=== PATIENT | female | born 1955 | race Caucasian/White ===

== ENCOUNTER 2016-02-17 05:25 | Day surgery (SDC) | payer BC, OTHER ==
[2016-02-16 10:03] LABS: HEMATOCRIT 40.7 % (36.0-47.0); HEMOGLOBIN 13.3 g/dL (12.0-15.5); HGB HCT DIFFERENCE -0.8; MEAN CORPUSCULAR HEMOGLOBIN 28.2 pg (27.0-33.4); MEAN CORPUSCULAR HGB CONC 32.8 g/dL (32.0-36.0); MEAN CORPUSCULAR VOLUME 86 fl (80-97); RED BLOOD COUNT 4.74 10^6/uL (3.72-5.28); RED CELL DISTRIBUTION WIDTH 14.9 % (11.5-14.0); WHITE BLOOD COUNT 10.9 10^3/uL (4.0-10.5)
[2016-02-16 10:20] LABS: APPEARANCE,URINE CLEAR; BILIRUBIN,URINE NEGATIVE (NEGATIVE); GLUCOSE, URINE NEGATIVE (NEGATIVE); KETONES,URINE NEGATIVE (NEGATIVE); LEUKOCYTE ESTERASE,URINE NEGATIVE (NEGATIVE); NITRITE,URINE NEGATIVE (NEGATIVE); PROTEIN,URINE NEGATIVE (NEGATIVE); URINE SPECIFIC GRAVITY 1.011; UROBILINOGEN,URINE NEGATIVE mg/dL (<2.0)
[2016-02-16 10:31] LABS: ANION GAP 15 (5-19); BLOOD UREA NITROGEN 18 mg/dL (7-20); CARBON DIOXIDE 26 mmol/L (22-30); CHLORIDE 104 mmol/L (98-107); CREATININE RESULT 0.61 mg/dL (0.52-1.25); GLUCOSE 81 mg/dL (75-110); SODIUM 144.6 mmol/L (137-145)
--- NOTE | 2016-02-16 16:59 | EKG REPORT ---
SEVERITY:- NORMAL ECG - SINUS RHYTHM : Confirmed by: Claire Pagan MD 16-Feb-2016 16:58:15
[~2016-02-17 05:25] MED LIST: LACTATED RINGERS 1000 ML IV PRN; LIDOCAINE 0.5% INJ-PF (5 MG/ML) 50 ML SDV SUBCUT PRN
[2016-02-17] MEDS ORDERED: ACETAMINOPHEN 100 ML IV ONE (07:12)
[2016-02-17] MEDS ORDERED: FENTANYL CITRATE INJ/PF 250 MCG/5 ML AMPULE ONE (07:12)
[2016-02-17] MEDS ORDERED: PROPOFOL INJ 200 MG/20 ML VIAL IV ONE ×2 (07:12→09:24)
[2016-02-17] MEDS ORDERED: MIDAZOLAM 2 MG/2 ML INJ ONE (07:12)
[2016-02-17] MEDS ORDERED: DEXMEDETOMIDINE INJ 80 MCG/20 ML VIAL IV ONE (07:13)
[2016-02-17] MEDS ORDERED: CLINDAMYCIN 600 MG/D5W RTU 600 MG/50 ML RTUPB IV ONE (07:39)
[2016-02-17] MEDS ORDERED: KETAMINE HCL INJ 500 MG/10 ML VIAL ONE (07:45)
[2016-02-17] MEDS ORDERED: FENTANYL CITRATE INJ/PF 100 MCG/2 ML AMPUL IV PRN ×3 (08:15)
[2016-02-17] MEDS ORDERED: OXYCODONE-ACETAMINOPHEN 5-325 MG TABLET PO PRN ×2 (08:15)
[2016-02-17] MEDS ORDERED: MEPERIDINE HCL/PF INJ 25 MG/1 ML DISP.SYRIN IV PRN (08:15)
[2016-02-17] MEDS ORDERED: PROMETHAZINE HCL INJ 25 MG/1 ML VIAL IV PRN ×2 (08:15)
[2016-02-17] MEDS ORDERED: DIPHENHYDRAMINE HCL 50 MG/ML VIAL IV PRN (08:15)
[2016-02-17] MEDS ORDERED: MORPHINE SULFATE 10 MG/ML INJ IV PRN (08:15)
--- NOTE | 2016-02-17 10:01 | Operative Report ---
Operative Report DATE OF SURGERY: 02/17/16 PREOPERATIVE DIAGNOSIS: Right second through fifth metatarsal fracture with a dislocation of first and second metatarsal heads OPERATION: Open reduction internal fixation of metatarsals 2, 3, 4 and 5. Closed reduction percutaneous pinning of dislocation of first and second metatarsal heads SURGEON: DARSHAN CHRISTINE ANESTHESIA: Spinal ESTIMATED BLOOD LOSS: minimal PROCEDURE: With the patient supine operative table the lower extremity is prepped and draped in sterile fashion. Limb was elevated for exsanguination tourniquet inflated 280 torr. Initially a lateral incision was made over the majority of the fifth metatarsal and sharp dissection is carried incision down to the fracture site and the fracture is reduced under direct visualization. Is highly comminuted. I 3.5 plate is placed across the fracture site. 2 screws distally and 2 screws proximally. Fracture reduction was near anatomic. Next, an incision is made between the first and second metatarsals and sharp dissection used to expose the underlying second metatarsal fracture. This is reduced under direct visualization and a 2.7 mm plate is applied. Next, an incision was made between third and fourth metatarsals. The fractures are visualized, reduced directly and secured with 2.7 mm plates in both cases. Next, this compression between the first metatarsal head and the remaining metatarsals which have been fixed with internal fixation. A 0.062 K wires placed transversely between first and second metatarsal head with the first webspace reduced. At this point the tourniquet was deflated. The wounds irrigated hemostasis. The reapproximation interrupted nylon. A sterile compressive dressing followed by a Cam Walker applied. Patient returned to PACU in satisfactory condition.
[2016-02-17] MEDS ORDERED: OXYCODONE HCL IR 5 MG TABLET PO PRN (10:17)
[2016-02-17] MEDS ORDERED: ONDANSETRON HCL INJ/PF 4 MG/2 ML SDV IV PRN (10:18)
[2016-02-17 12:56] VITALS: BP 119/79
[2016-02-17] MEDS ORDERED: SUCCINYLCHOLINE CHLORIDE INJ 200 MG/10 ML VIAL ONE (14:25)
[2016-02-17] MEDS ORDERED: PHENYLEPHRINE HCL INJ/PF 10 MG/1 ML SDV ONE (14:25)
[2016-02-17] MEDS ORDERED: LIDOCAINE 2% INJ-PF (20 MG/ML) 10 ML AMPUL ONE (14:25)
[2016-02-17] MEDS ORDERED: GLYCOPYRROLATE INJ 0.4 MG/2 ML VIAL ONE (14:25)
--- NOTE | 2016-02-18 15:31 | Operative Report ---
Operative Report DATE OF SURGERY: 02/17/16 PREOPERATIVE DIAGNOSIS: Left second through fifth metatarsal fracture with a dislocation of first and second metatarsal heads OPERATION: Open reduction internal fixation of metatarsals 2, 3, 4 and 5. Closed reduction percutaneous pinning of dislocation of first and second metatarsal heads SURGEON: DARSHAN CHRISTINE ANESTHESIA: Spinal ESTIMATED BLOOD LOSS: minimal
== END 2016-02-17 12:30 | disposition home or self-care (01) ==
LOC: OROUT 05:25
PROVIDERS: ATTEND Orthopaedic Surgery
PROC: 0QSN04Z Reposition Right Metatarsal with Internal Fixation Device, Open Approach (ICD-10-PCS; 2016-02-17)
PROC: 0QSN34Z Reposition Right Metatarsal with Internal Fixation Device, Percutaneous Approach (ICD-10-PCS; principal; 2016-02-17 07:30)
DX: S92.321A Displaced fracture of second metatarsal bone, right foot, initial encounter for closed fracture (principal); S92.331A Displaced fracture of third metatarsal bone, right foot, initial encounter for closed fracture; S92.341A Displaced fracture of fourth metatarsal bone, right foot, initial encounter for closed fracture; S92.351A Displaced fracture of fifth metatarsal bone, right foot, initial encounter for closed fracture; W10.9XXA Fall (on) (from) unspecified stairs and steps, initial encounter; E11.9 Type 2 diabetes mellitus without complications; J44.9 Chronic obstructive pulmonary disease, unspecified; I10 Essential (primary) hypertension; Z79.51 Long term (current) use of inhaled steroids; Z87.891 Personal history of nicotine dependence; Z79.84 Long term (current) use of oral hypoglycemic drugs; Z88.0 Allergy status to penicillin
CPT/HCPCS: 93005; 36415; 82962; 85027; 80048; 81001; 71020; 73630; 93010; 28476; 28485 ×4; C1769; C1713 ×2; J2250; J3010; J3490 ×3; J2370; J0330; J2704; J0131; 01480

== ENCOUNTER → 2017-04-17 | Outpatient (CLI) | payer BC, OTHER ==
--- NOTE | 2017-04-17 16:49 | WOMENS IMAGING REPORT ---
EXAM DESCRIPTION: BILAT SCREENING MAMMO W/CAD COMPLETED DATE/TIME: 04/17/2017 8:48 am REASON FOR STUDY: SCREENING MAMMO Z12.31 ENCNTR SCREEN MAMMOGRAM FOR MALIGNANT NEOPLASM OF BETTY COMPARISON: None. TECHNIQUE: Standard craniocaudal and mediolateral oblique views of each breast recorded using digita l acquisition. LIMITATIONS: None. FINDINGS: RIGHT BREAST MASSES: Ill-defined nodular mass in the upper-outer breast, located 12 cm from nipple. CALCIFICATIONS: No new or suspicious calcifications. ARCHITECTURAL DISTORTION: None. DEVELOPING DENSITY: None. ASYMMETRY: None noted. OTHER: No other significant findings. LEFT BREAST MASSES: No suspicious masses. CALCIFICATIONS: No new or suspicious calcifications. ARCHITECTURAL DISTORTION: None. DEVELOPING DENSITY: None. ASYMMETRY: None noted. OTHER: No other significant findings. Read with the assistance of CAD. [facility] - R2 Cenova Version 1.3 .[facility] Imaging - R2 Cenova Version 1.3 .[facility] Imaging - R2 Cenova Version 2.4 .[facility] [place] - R2 Cenova Version 2.4 .[facility] - R2 Billet Inspector Version 9.2 IMPRESSION: Ill-defined nodular mass in the upper-outer right breast. No worrisome mammographic fin dings in the left breast. BREAST DENSITY: b. There are scattered areas of fibroglandular density. BIRAD: 0 Incomplete: Needs Additional Imaging Evaluation and/or prior Mammograms for Comparison. RECOMMENDATION: RECOMMENDED FOLLOW-UP: Recommend additional evaluation with breast tomosynthesis (pr eferred) or compression views of the right breast and ultrasound of the right breast. Recommend rout ine screening mammography of the left breast. The patient will be contacted for additional imaging. COMMENT: The patient has been notified of the results by letter per SA requirements. Additional no tification policies are in place for contacting patient with suspicious or incomplete findings. Quality ID #225: The [employer] recommends an annual screening mammogram for women aged 40 years or over. This facility utilizes a reminder system to ensure that all patients receive reminder letters, and/or direct phone calls for appointments. This includes reminders for routine scr eening mammograms, diagnostic mammograms, or other Breast Imaging Interventions when appropriate. Th is patient will be placed in the appropriate reminder system. The [employer] (ACR) has developed recommendations for screening MRI of the breast s in certain patient populations, to be used in conjunction with mammography. Breast MRI surveillanc e may be appropriate for women with more than 20% lifetime risk of developing breast cancer as deter mined by genetic testing, significant family history of the disease, or history of mantle radiation f or Hodgkins Disease. ACR Practice Guidelines 2008. TECHNICAL DOCUMENTATION: FINDING NUMBER: (1) ASSESSMENT: (1) JOB ID: [id number] [employer]- All Rights Reserved Reading location - IP/workstation name: [facility]
== END ==
LOC: WI 08:27
PROVIDERS: ATTEND Family Medicine
DX: Z12.31 Encounter for screening mammogram for malignant neoplasm of breast (principal)
CPT/HCPCS: 77067

== ENCOUNTER → 2017-05-03 | Outpatient (CLI) | payer BC, OTHER ==
--- NOTE | 2017-05-03 16:08 | WOMENS IMAGING REPORT ---
EXAM DESCRIPTION: RIGHT DIAGNOSTIC MAMMO W/CAD; U/S BREAST UNILAT LIMITED COMPLETED DATE/TIME: 05/03/2017 10:28 am; 05/03/2017 11:21 am REASON FOR STUDY: UNSPECIFIED LUMP; N63.11; RT BREAST; N63.11 N63.11 UNSPECIFIED LUMP IN THE RIGHT BREAST, UPPER OUTER SUE COMPARISON: 04/17/2017 TECHNIQUE: Compression magnification craniocaudal and 90 mediolateral images of the breast recorde d with digital acquisition. Additional right breast 90 mediolateral view and CC view. Additional non magnified compression views of the upper outer quadrant in the CC and MLO orientations Right breast ultrasound LIMITATIONS: None. FINDINGS: BREAST: Right MASSES: In the upper outer quadrant, a faintly radiodense nodule is present 7 mm in size with central hilar fat likely a benign intramammary lymph node. This correlates with ultrasound today. CALCIFICATIONS: No new or suspicious calcifications. ARCHITECTURAL DISTORTION: None. DEVELOPING DENSITY: None. ASYMMETRY: None noted. OTHER: No other significant findings. Read with the assistance of CAD. .[facility] - R2 Cenova Version 1.3 .[facility] Imaging - R2 Cenova Version 1.3 .[facility] Imaging - R2 Cenova Version 2.4 .[facility] [place] - R2 Cenova Version 2.4 .[facility] - R2 Line Clearance Foreman Version 9.2 Right breast ultrasound: In the right breast 10 o'clock position, a 7 x 4 mm intramammary lymph node is present. Tiny 2 to 3 mm parenchymal cysts are also evident. IMPRESSION: No mammographic or sonographic evidence for malignancy right breast. BREAST DENSITY: b. There are scattered areas of fibroglandular density. BIRAD: 2 Benign findings. RECOMMENDATION: RECOMMENDED FOLLOW UP: Please continue yearly bilateral screening mammography SPECIFIC INTERVENTION/IMAGING/CONSULTATION RECOMMENDED:No additional intervention/ imaging/consultati on needed at this time. COMMUNICATION:Patient notified by letter COMMENT: The patient has been notified of the results by letter per MQSA requirements. Additional no tification policies are in place for contacting patient with suspicious or incomplete findings. Quality ID #[id number]: The [employer] recommends an annual screening mammogram for women aged 40 years or over. This facility utilizes a reminder system to ensure that all patients receive reminder letters, and/or direct phone calls for appointments. This includes reminders for routine scr eening mammograms, diagnostic mammograms, or other Breast Imaging Interventions when appropriate. Th is patient will be placed in the appropriate reminder system. The [employer] (ACR) has developed recommendations for screening MRI of the breast s in certain patient populations, to be used in conjunction with mammography. Breast MRI surveillanc e may be appropriate for women with more than 20% lifetime risk of developing breast cancer as deter mined by genetic testing, significant family history of the disease, or history of mantle radiation f or Hodgkins Disease. ACR Practice Guidelines 2008. TECHNICAL DOCUMENTATION: FINDING NUMBER: (1) ASSESSMENT: (1) JOB ID: [id number] [employer]- All Rights Reserved Reading location - IP/workstation name: [email or web address]
--- NOTE | 2017-05-03 16:08 | WOMENS IMAGING REPORT ---
EXAM DESCRIPTION: RIGHT DIAGNOSTIC MAMMO W/CAD; U/S BREAST UNILAT LIMITED COMPLETED DATE/TIME: 05/03/2017 10:28 am; 05/03/2017 11:21 am REASON FOR STUDY: UNSPECIFIED LUMP; N63.11; RT BREAST; N63.11 N63.11 UNSPECIFIED LUMP IN THE RIGHT BREAST, UPPER OUTER SUE COMPARISON: 04/17/2017 TECHNIQUE: Compression magnification craniocaudal and 90 mediolateral images of the breast recorde d with digital acquisition. Additional right breast 90 mediolateral view and CC view. Additional non magnified compression views of the upper outer quadrant in the CC and MLO orientations Right breast ultrasound LIMITATIONS: None. FINDINGS: BREAST: Right MASSES: In the upper outer quadrant, a faintly radiodense nodule is present 7 mm in size with central hilar fat likely a benign intramammary lymph node. This correlates with ultrasound today. CALCIFICATIONS: No new or suspicious calcifications. ARCHITECTURAL DISTORTION: None. DEVELOPING DENSITY: None. ASYMMETRY: None noted. OTHER: No other significant findings. Read with the assistance of CAD. .[facility] - R2 Cenova Version 1.3 .[facility] Imaging - R2 Cenova Version 1.3 .[facility] Imaging - R2 Cenova Version 2.4 .[facility] [place] R2 Cenova Version 2.4 .[facility] - R2 Cigar Making Machine Operator Version 9.2 Right breast ultrasound: In the right breast 10 o'clock position, a 7 x 4 mm intramammary lymph node is present. Tiny 2 to 3 mm parenchymal cysts are also evident. IMPRESSION: No mammographic or sonographic evidence for malignancy right breast. BREAST DENSITY: b. There are scattered areas of fibroglandular density. BIRAD: 2 Benign findings. RECOMMENDATION: RECOMMENDED FOLLOW UP: Please continue yearly bilateral screening mammography SPECIFIC INTERVENTION/IMAGING/CONSULTATION RECOMMENDED:No additional intervention/ imaging/consultati on needed at this time. COMMUNICATION:Patient notified by letter COMMENT: The patient has been notified of the results by letter per MQSA requirements. Additional no tification policies are in place for contacting patient with suspicious or incomplete findings. Quality ID #225: The [employer] recommends an annual screening mammogram for women aged 40 years or over. This facility utilizes a reminder system to ensure that all patients receive reminder letters, and/or direct phone calls for appointments. This includes reminders for routine scr eening mammograms, diagnostic mammograms, or other Breast Imaging Interventions when appropriate. Th is patient will be placed in the appropriate reminder system. The [employer] (ACR) has developed recommendations for screening MRI of the breast s in certain patient populations, to be used in conjunction with mammography. Breast MRI surveillanc e may be appropriate for women with more than 20% lifetime risk of developing breast cancer as deter mined by genetic testing, significant family history of the disease, or history of mantle radiation f or Hodgkins Disease. ACR Practice Guidelines 2008. TECHNICAL DOCUMENTATION: FINDING NUMBER: (1) ASSESSMENT: (1) JOB ID: [id number] [employer]- All Rights Reserved Reading location - IP/workstation name: [email or web address]
== END ==
LOC: WI 09:47
PROVIDERS: ATTEND Family Medicine
DX: N63.11 Unspecified lump in the right breast, upper outer quadrant (principal)
CPT/HCPCS: 76642

== ENCOUNTER 2018-01-29 14:27 | Emergency (ER) | payer BC, OTHER ==
[2018-01-29] MEDS ORDERED: LIDOCAINE 2% VISCOUS SOLN 20 ML UDCUP PO ONE (15:04)
[2018-01-29] MEDS ORDERED: MAG HYDROX/AL HYDROX/SIMETH SUSP 30 ML UDCUP PO ONE (15:04)
[2018-01-29] MEDS ORDERED: METOCLOPRAMIDE HCL ORAL SOLN 10 MG/10 ML UDCUP PO ONE (15:04)
--- NOTE | 2018-01-29 15:05 | ER Document Report ---
ED Medical Screen (RME) - General Chief Complaint: Chest Pain Stated Complaint: CHEST PAIN Time Seen by Provider: 01/29/18 14:57 TRAVEL OUTSIDE OF THE [place] IN LAST 30 DAYS: No - Related Data Allergies/Adverse Reactions: Penicillins Adverse Reaction (Severe, Verified 01/29/18 14:27) WHEEZE Past Medical History - Social History Chew tobacco use (# tins/day): No Frequency of alcohol use: None Drug Abuse: None - Past Medical History Cardiac Medical History: Reports: Hx Hypertension - on meds Denies: Hx Coronary Artery Disease, Hx Heart Attack Pulmonary Medical History: Reports: Hx Asthma, Hx Bronchitis - hx of , Hx COPD - inhaler,nebulizer, Hx Pneumonia - 08/21 Neurological Medical History: Reports: Hx Seizures - as child-no meds x 1. Denies: Hx Cerebrovascular Accident Endocrine Medical History: Reports: Hx Diabetes Mellitus Type 2 - borderline Renal/ Medical History: Denies: Hx Peritoneal Dialysis Musculoskeltal Medical History: Denies Hx Arthritis Past Surgical History: Reports: Hx Orthopedic Surgery - left foot/ titanium plates placed, Hx Tonsillectomy. Denies: Hx Hysterectomy - Immunizations Hx Diphtheria, Pertussis, Tetanus Vaccination: No Physical Exam - Vital signs Vitals: Temp Pulse Resp BP Pulse Ox 99.0 F 88 18 147/95 H 96 01/29/18 14:54 01/29/18 14:54 01/29/18 14:54 01/29/18 14:54 01/29/18 14:54 Course - Re-evaluation Re-evalutation: 01/29/18 15:04 63-year-old female with a history of asthma as well as hypertension and prediabetes who presents for intermittent left-sided chest pain. We will plan for cardiac monitoring EKG troponin. Will administer GI cocktail she does say that this could potentially represent reflux though it did not respond well to Prilosec at home. I will plan for this patient undergo further investigation evaluation by secondary provider, the the appropriate diagnostics, disposition and workup will be deferred to that provider. I have performed a rapid screening examination and they will require further evaluation. - Vital Signs Vital signs: Temp Pulse Resp BP Pulse Ox 99.0 F 88 18 147/95 H 96 01/29/18 14:54 01/29/18 14:54 01/29/18 14:54 01/29/18 14:54 01/29/18 14:54 Doctor's Discharge - Discharge Referrals: JASWANT EDWARDS MD [Primary Care Provider] - Follow up as needed
--- NOTE | 2018-01-29 15:54 | RADIOLOGY REPORT (SQ) ---
EXAM DESCRIPTION: CHEST SINGLE VIEW COMPLETED DATE/TIME: 01/29/2018 3:40 pm REASON FOR STUDY: Chest Pain COMPARISON: 02/16/2016 EXAM PARAMETERS: NUMBER OF VIEWS: One view. TECHNIQUE: Single frontal radiographic view of the chest acquired. RADIATION DOSE: NA LIMITATIONS: None. FINDINGS: LUNGS AND PLEURA: No opacities, masses or pneumothorax. No pleural effusion. MEDIASTINUM AND HILAR STRUCTURES: No masses. Contour normal. HEART AND VASCULAR STRUCTURES: Heart normal in size. Normal vasculature. BONES: No acute findings. HARDWARE: None in the chest. OTHER: No other significant finding. IMPRESSION: NO ACUTE RADIOGRAPHIC FINDING IN THE CHEST. TECHNICAL DOCUMENTATION: JOB ID: [id number] [employer]- All Rights Reserved Reading location - IP/workstation name: [email or web address]
[2018-01-29 16:05] LABS: ABSOLUTE BASOPHILS # (AUTO) 0.1 10^3/uL (0.0-0.2); ABSOLUTE EOSINOPHILS # (AUTO) 0.2 10^3/uL (0.0-0.6); ABSOLUTE LYMPHOCYTES (AUTO) 2.2 10^3/uL (0.5-4.7); ABSOLUTE MONOCYTES (AUTO) 0.5 10^3/uL (0.1-1.4); ABSOLUTE NEUT (AUTO) 10.7 10^3/uL (1.7-8.2); BASOPHILS % (AUTO) 0.7 % (0-2); EOSINOPHILS % (AUTO) 1.4 % (0-6); HEMATOCRIT 41.1 % (36.0-47.0); HEMOGLOBIN 13.7 g/dL (12.0-15.5); MEAN CORPUSCULAR HEMOGLOBIN 28.4 pg (27.0-33.4); MEAN CORPUSCULAR HGB CONC 33.3 g/dL (32.0-36.0); MEAN CORPUSCULAR VOLUME 85 fl (80-97); PLATELET COUNT 346 10^3/uL (150-450); RED BLOOD COUNT 4.81 10^6/uL (3.72-5.28); RED CELL DISTRIBUTION WIDTH 13.8 % (11.5-14.0); SEGMENTED NEUTROPHILS % (AUTO) 77.9 % (42-78); TOTAL CELLS COUNTED % (AUTO) 100 %; WHITE BLOOD COUNT 13.7 10^3/uL (4.0-10.5)
[2018-01-29 16:11] LABS: INTERNATIONAL RATION (INR) 0.94
[2018-01-29 16:20] LABS: ALANINE AMINOTRANSFERASE 35 U/L (9-52); ALBUMIN 4.6 g/dL (3.5-5.0); ALKALINE PHOSPHATASE 70 U/L (38-126); ANION GAP 9 (5-19); ASPARTATE AMINO TRANSFERASE 28 U/L (14-36); BILIRUBIN,DIRECT 0.2 mg/dL (0.0-0.4); BILIRUBIN,TOTAL 0.4 mg/dL (0.2-1.3); BLOOD UREA NITROGEN 18 mg/dL (7-20); CALCIUM 10.4 mg/dL (8.4-10.2); CARBON DIOXIDE 25 mmol/L (22-30); CHLORIDE 106 mmol/L (98-107); CREATINE KINASE 79 U/L (30-135); GLUCOSE 111 mg/dL (75-110); TOTAL PROTEIN 7.4 g/dL (6.3-8.2)
[2018-01-29 16:32] LABS: CREATINE KINASE MB 1.01 ng/mL (<4.55); TROPONIN I < 0.012 ng/mL
--- NOTE | 2018-01-29 17:45 | EKG REPORT ---
SEVERITY:- NORMAL ECG - SINUS RHYTHM : Confirmed by: Madison Abbasi 29-Jan-2018 17:44:32
--- NOTE | 2018-01-29 19:14 | ER Document Report ---
ED General - General Chief Complaint: Chest Pain Stated Complaint: CHEST PAIN Time Seen by Provider: 01/29/18 14:57 TRAVEL OUTSIDE OF THE [place] IN LAST 30 DAYS: No - HPI Patient complains to provider of: Epigastric substernal chest pain Notes: Is coming in for epigastric mid substernal chest pain intermittent feeling like a spasm ongoing since day prior to arrival. Patient states yesterday she did take Prilosec with minimal relief pain was improved today however continued the refore came to the ER for further evaluation. Patient does have history of hypertension prediabetic. Patient's states she also has been taking anti- inflammatory medications due to a right shoulder bursitis also recently had a dental infection and was also on clindamycin. Patient otherwise denies any trauma recent travel denies any shortness of breath nausea vomiting fevers or chills. Patient resting comfortably upon my evaluation patient has received a GI cocktail currently chest pain-free - Related Data Allergies/Adverse Reactions: Penicillins Adverse Reaction (Severe, Verified 01/29/18 14:27) WHEEZE Past Medical History - Social History Smoking Status: Former Smoker Chew tobacco use (# tins/day): No Frequency of alcohol use: None Drug Abuse: None Family History: Reviewed & Not Pertinent Patient has suicidal ideation: No Patient has homicidal ideation: No - Past Medical History Cardiac Medical History: Reports: Hx Hypertension - on meds Denies: Hx Coronary Artery Disease, Hx Heart Attack Pulmonary Medical History: Reports: Hx Asthma, Hx Bronchitis - hx of , Hx COPD - inhaler,nebulizer, Hx Pneumonia - 08/21 Neurological Medical History: Reports: Hx Seizures - as child-no meds x 1. Denies: Hx Cerebrovascular Accident Endocrine Medical History: Reports: Hx Diabetes Mellitus Type 2 - borderline Renal/ Medical History: Denies: Hx Peritoneal Dialysis Musculoskeletal Medical History: Denies Hx Arthritis Past Surgical History: Reports: Hx Orthopedic Surgery - left foot/ titanium plates placed, Hx Tonsillectomy. Denies: Hx Hysterectomy - Immunizations Hx Diphtheria, Pertussis, Tetanus Vaccination: No Hx Pneumococcal Vaccination: 11/16/10 Review of Systems - Review of Systems Constitutional: No symptoms reported EENT: No symptoms reported Cardiovascular: Chest pain Respiratory: No symptoms reported Gastrointestinal: No symptoms reported Genitourinary: No symptoms reported Female Genitourinary: No symptoms reported Musculoskeletal: No symptoms reported Skin: No symptoms reported Hematologic/Lymphatic: No symptoms reported Neurological/Psychological: No symptoms reported -: Yes All other systems reviewed and negative Physical Exam - Vital signs Vitals: Temp Pulse Resp BP Pulse Ox 99.0 F 88 18 147/95 H 96 01/29/18 14:54 01/29/18 14:54 01/29/18 14:54 01/29/18 14:54 01/29/18 14:54 Interpretation: Normal - General General appearance: Appears well, Alert - HEENT Head: Normocephalic, Atraumatic Eyes: Normal Pupils: PERRL - Respiratory Respiratory status: No respiratory distress Chest status: Nontender Breath sounds: Normal Chest palpation: Normal - Cardiovascular Rhythm: Regular Heart sounds: Normal auscultation Murmur: No - Abdominal Inspection: Normal Distension: No distension Bowel sounds: Normal Tenderness: Nontender Organomegaly: No organomegaly - Back Back: Normal, Nontender - Extremities General upper extremity: Normal inspection, Nontender, Normal color, Normal ROM, Normal temperature General lower extremity: Normal inspection, Nontender, Normal color, Normal ROM, Normal temperature, Normal weight bearing. No: Thelma's sign - Neurological Neuro grossly intact: Yes Cognition: Normal Orientation: AAOx4 [place] Coma Scale Eye Opening: Spontaneous Brittany Coma Scale Verbal: Oriented [place] Coma Scale Motor: Obeys Commands Brittany Coma Scale Total: 15 Speech: Normal Motor strength normal: LUE, RUE, LLE, RLE Sensory: Normal - Psychological Associated symptoms: Normal affect, Normal mood - Skin Skin Temperature: Warm Skin Moisture: Dry Skin Color: Normal Course - Re-evaluation Re-evalutation: 01/29/18 19:41 The patient has atypical chest pain as the patient's chest pain is not suggestive of pulmonary embolus, cardiac ischemia, aortic dissection, or other serious etiology. Given the extremely low risk of these diagnoses further te sting and evaluation for these possibilities does not appear to be indicated at this time. The patient has been instructed to return if the symptoms worsen or change in any way. With resolution the patient's symptoms with a GI cocktail also improvement prior to arrival process more likely underlying gastritis or GI cause of her pain. This is also further reinforced with her recent history use of NSAIDs and antibiotics. Recommended the patient continue her omeprazole or Prilosec for another 14 days follow-up with her primary care physician return to ER symptoms worsen patient states understanding agrees with this plan. - Vital Signs Vital signs: Temp Pulse Resp BP Pulse Ox 99.0 F 88 19 128/81 H 95 01/29/18 14:54 01/29/18 14:54 01/29/18 19:01 01/29/18 19:01 01/29/18 19:01 - Laboratory Result Diagrams: 01/29/18 15:56 01/29/18 15:56 Laboratory results interpreted by me: 01/29/18 01/29/18 15:56 15:56 WBC 13.7 H Absolute Neutrophils 10.7 H Glucose 111 H Calcium 10.4 H Discharge - Discharge Clinical Impression: Chest pain in adult Condition: Good Disposition: HOME, SELF-CARE Instructions: Chest Pain of Unclear Cause ([facility]), Prilosec (Acid Pump Inhibitor) ([facility]), Reflux Disease (GERD) ([facility]) Additional Instructions: Your evaluation today shows a normal EKG normal chest x-ray and a normal cardiac enzymes, troponin. With her symptoms improving with Prilosec and GI cocktail given to you here in the ER do believe you have more likely underlying GI cause of your chest pain possible gastritis. I would recommend continuing the Prilosec for the next 2 weeks and following up with your primary care physician. He may continue on that medication however he may refer you to a GI specialist. Also avoid foods that are fried greasy or fatty carbonated drinks in excess. If the characteristic of your pain or any other worrisome conditions arise please return to ER immediately. Referrals: JASWANT EDWARDS MD [Primary Care Provider] - Follow up as needed
[2018-01-29 19:22] VITALS: BP 128/81
== END 2018-01-29 19:40 | disposition home or self-care (01) ==
LOC: ER 14:27
DX: R07.9 Chest pain, unspecified (principal); R10.13 Epigastric pain; I10 Essential (primary) hypertension; E11.9 Type 2 diabetes mellitus without complications; Z88.0 Allergy status to penicillin
CPT/HCPCS: 93005; 99285; 36415; 82553; 82550; 85025; 85610; 80053; 84484; 71045; 93010; J3490

== ENCOUNTER 2018-02-03 14:37 | Emergency (ER) | payer BC, OTHER ==
[2018-02-03] MEDS ORDERED: OXYCODONE-ACETAMINOPHEN 5-325 MG TABLET PO ONE (16:06)
[2018-02-03] MEDS ORDERED: ONDANSETRON 4 MG TAB.RAPDIS PO ONE (16:06)
[2018-02-03 16:56] LABS: ABSOLUTE BASOPHILS # (AUTO) 0.2 10^3/uL (0.0-0.2); ABSOLUTE EOSINOPHILS # (AUTO) 0.3 10^3/uL (0.0-0.6); ABSOLUTE LYMPHOCYTES (AUTO) 2.5 10^3/uL (0.5-4.7); ABSOLUTE MONOCYTES (AUTO) 0.7 10^3/uL (0.1-1.4); ABSOLUTE NEUT (AUTO) 9.4 10^3/uL (1.7-8.2); BASOPHILS % (AUTO) 1.2 % (0-2); EOSINOPHILS % (AUTO) 2.4 % (0-6); HEMATOCRIT 41.5 % (36.0-47.0); HEMOGLOBIN 13.9 g/dL (12.0-15.5); LYMPHOCYTES % (AUTO) 18.9 % (13-45); MEAN CORPUSCULAR HEMOGLOBIN 28.9 pg (27.0-33.4); MEAN CORPUSCULAR HGB CONC 33.6 g/dL (32.0-36.0); MEAN CORPUSCULAR VOLUME 86 fl (80-97); MONOCYTES % (AUTO) 5.1 % (3-13); PLATELET COUNT 346 10^3/uL (150-450); RED BLOOD COUNT 4.83 10^6/uL (3.72-5.28); RED CELL DISTRIBUTION WIDTH 13.7 % (11.5-14.0); SEGMENTED NEUTROPHILS % (AUTO) 72.4 % (42-78); TOTAL CELLS COUNTED % (AUTO) 100 %
[2018-02-03 17:07] LABS: APPEARANCE,URINE CLEAR; BILIRUBIN,URINE NEGATIVE (NEGATIVE); COLOR,URINE YELLOW; GLUCOSE, URINE NEGATIVE (NEGATIVE); KETONES,URINE NEGATIVE (NEGATIVE); LEUKOCYTE ESTERASE,URINE NEGATIVE (NEGATIVE); NITRITE,URINE NEGATIVE (NEGATIVE); PROTEIN,URINE NEGATIVE (NEGATIVE); URINE SPECIFIC GRAVITY 1.012; UROBILINOGEN,URINE NEGATIVE mg/dL (<2.0)
[2018-02-03 17:15] LABS: ALANINE AMINOTRANSFERASE 46 U/L (9-52); ALBUMIN 4.3 g/dL (3.5-5.0); ALKALINE PHOSPHATASE 82 U/L (38-126); ANION GAP 9 (5-19); ASPARTATE AMINO TRANSFERASE 42 U/L (14-36); BILIRUBIN,DIRECT 0.2 mg/dL (0.0-0.4); BILIRUBIN,TOTAL 0.4 mg/dL (0.2-1.3); BLOOD UREA NITROGEN 13 mg/dL (7-20); CARBON DIOXIDE 26 mmol/L (22-30); CHLORIDE 106 mmol/L (98-107); GLUCOSE 89 mg/dL (75-110); LIPASE 124.9 U/L (23-300); SODIUM 141.2 mmol/L (137-145); TOTAL PROTEIN 7.2 g/dL (6.3-8.2)
--- NOTE | 2018-02-03 17:47 | ER Document Report ---
ED General - General Chief Complaint: Abdominal Pain >50 Stated Complaint: FLANK PAIN Time Seen by Provider: 02/03/18 16:02 Mode of Arrival: Ambulatory Information source: Patient, [facility] Records Notes: 63-year-old female with hypertension, COPD, prediabetes, gastritis, asthma presents for the second time this week with right upper quadrant abdominal pain. Patient states pain started 6 days prior to arrival. She was seen 5 days ago and diagnosed with gastritis. She has been taking Prilosec with minimal relief. Patient states that her pain was initially epigastric but now has moved to the right upper quadrant. She states pain is worse with food. She describes it as an intermittent burning pain. She denies associated nausea, vomiting, diarrhea, chest pain, shortness of breath, diaphoresis. She does state that her family does have a history of gallbladder disease. TRAVEL OUTSIDE OF THE [place] IN LAST 30 DAYS: No - HPI Onset: Last week Onset/Duration: Gradual, Persistent, Gone - Patient is currently pain-free after receiving Zofran and Percocet. Quality of pain: Burning Severity: Mild Associated symptoms: denies: Chest pain, Fever, Nausea, Vomiting, Shortness of breath, Sweating Exacerbated by: Food Relieved by: Denies Similar symptoms previously: Yes Recently seen / treated by doctor: Yes - Related Data Allergies/Adverse Reactions: Penicillins Adverse Reaction (Severe, Verified 02/03/18 14:56) WHEEZE Past Medical History - General Information source: Patient - Social History Smoking Status: Former Smoker Frequency of alcohol use: None Drug Abuse: None Lives with: Spouse/Significant other Family History: Reviewed & Not Pertinent Patient has suicidal ideation: No Patient has homicidal ideation: No - Past Medical History Cardiac Medical History: Reports: Hx Hypertension - on meds Denies: Hx Coronary Artery Disease, Hx Heart Attack Pulmonary Medical History: Reports: Hx Asthma, Hx Bronchitis - hx of , Hx COPD - inhaler,nebulizer, Hx Pneumonia - 08/21 Neurological Medical History: Reports: Hx Seizures - as child-no meds x 1. Denies: Hx Cerebrovascular Accident Endocrine Medical History: Reports: Hx Diabetes Mellitus Type 2 - borderline Renal/ Medical History: Denies: Hx Peritoneal Dialysis Musculoskeletal Medical History: Denies Hx Arthritis Past Surgical History: Reports: Hx Orthopedic Surgery - left foot/ titanium plates placed, Hx Tonsillectomy. Denies: Hx Hysterectomy - Immunizations Hx Diphtheria, Pertussis, Tetanus Vaccination: No Hx Pneumococcal Vaccination: 11/16/10 Review of Systems - Review of Systems Notes: REVIEW OF SYSTEMS: CONSTITUTIONAL : Denies fever, chills, or sweats. Denies recent illness. Denies weight loss, recent hospitalizations. EENT: Denies visual changes, eye pain. Denies sore throat, oral lesions, difficulty swallowing. CARDIOVASCULAR: Denies chest pain. Denies palpitations. Denies lower extremity edema. RESPIRATORY: Denies cough. Denies shortness of breath, wheezing. GASTROINTESTINAL: Denies distention. Denies nausea, vomiting, or diarrhea. Denies blood in vomitus, stools, or per rectum. Denies black, tarry stools. Denies constipation. GENITOURINARY: Denies difficulty urinating, painful urination, frequency, blood in urine, or vaginal discharge. MUSCULOSKELETAL: Denies back or neck pain or stiffness. Denies joint pain or swelling. SKIN: Denies rash, lesions or sores. HEMATOLOGIC : Denies easy bruising or bleeding. LYMPHATIC: Denies swollen glands. NEUROLOGICAL: Denies confusion or altered mental status. Denies loss of consciousness. Denies dizziness or lightheadedness. Denies headache. Denies weakness or paralysis. Denies problems difficulty with ambulation, slurred speech. Denies sensory loss, numbness, or tingling. Denies seizures. PSYCHIATRIC: Denies anxiety or stress. Denies depression, suicidal ideation, or homicidal ideation. Denies visual or auditory hallucinations. Physical Exam - Vital signs Vitals: Temp Pulse Resp BP Pulse Ox 98.9 F 94 18 148/89 H 97 02/03/18 15:12 02/03/18 15:12 02/03/18 15:12 02/03/18 15:12 02/03/18 15:12 Interpretation: Hypertensive - Notes Notes: PHYSICAL EXAMINATION: GENERAL: Well-appearing, well-nourished and in no acute distress. HEAD: Atraumatic, normocephalic. EYES: Pupils equal round and reactive to light, extraocular movements intact, conjunctiva are normal. ENT: Nares patent, oropharynx clear without exudates. Moist mucous membranes. NECK: Normal range of motion, supple without lymphadenopathy LUNGS: Breath sounds clear to auscultation bilaterally and equal. No wheezes rales or rhonchi. HEART: Regular rate and rhythm without murmurs ABDOMEN: Soft, nontender, nondistended abdomen. No guarding, no rebound. No masses appreciated. Female : deferred Musculoskeletal: Normal range of motion, no pitting or edema. No cyanosis. NEUROLOGICAL: Cranial nerves grossly intact. Normal speech, normal gait. Normal sensory, motor exams PSYCH: Normal mood, normal affect. SKIN: Warm, Dry, normal turgor, no rashes or lesions noted. Course - Re-evaluation Re-evalutation: 02/03/18 23:10 Laboratory 02/03/18 02/03/18 02/03/18 16:43 16:43 16:43 WBC 13.0 H RBC 4.83 Hgb 13.9 Hct 41.5 MCV 86 MCH 28.9 MCHC 33.6 RDW 13.7 Plt Count 346 Seg Neutrophils % 72.4 Lymphocytes % 18.9 Monocytes % 5.1 Eosinophils % 2.4 Basophils % 1.2 Absolute Neutrophils 9.4 H Absolute Lymphocytes 2.5 Absolute Monocytes 0.7 Absolute Eosinophils 0.3 Absolute Basophils 0.2 Sodium 141.2 Potassium 4.0 Chloride 106 Carbon Dioxide 26 Anion Gap 9 BUN 13 Creatinine 0.61 Est GFR ( Amer) > 60 Est GFR (Non-Af Amer) > 60 Glucose 89 Calcium 10.0 Total Bilirubin 0.4 Direct Bilirubin 0.2 Neonat Total Bilirubin Not Reportable Neonat Direct Bilirubin Not Reportable Neonat Indirect Bili Not Reportable AST 42 H ALT 46 Alkaline Phosphatase 82 Total Protein 7.2 Albumin 4.3 Lipase 124.9 Urine Color YELLOW Urine Appearance CLEAR Urine pH 6.0 Ur Specific Alexander 1.012 Urine Protein NEGATIVE Urine Glucose (UA) NEGATIVE Urine Ketones NEGATIVE Urine Blood NEGATIVE Urine Nitrite NEGATIVE Urine Bilirubin NEGATIVE Urine Urobilinogen NEGATIVE Ur Leukocyte Esterase NEGATIVE Urine WBC (Auto) 1 Urine RBC (Auto) 1 U Hyaline Cast (Auto) 1 Squamous Epi Cells Auto <1 Urine Mucus (Auto) RARE Urine Ascorbic Acid NEGATIVE Abdomen Ultrasound 02/03/18 17:46 IMPRESSION: 1. Fatty liver. 2. Cholelithiasis. No acute cholecystitis suggested. Temp Pulse Resp BP Pulse Ox 97.6 F 80 18 136/78 H 97 02/03/18 20:52 02/03/18 20:52 02/03/18 20:52 02/03/18 20:52 02/03/18 20:52 63-year-old female presents for the second time this week with complaint of upper abdominal pain. Patient was recently diagnosed with gastritis, started on Pepcid but states pain worsened yesterday. Vital signs reviewed upon arrival patient is afebrile, normotensive. She does not appear toxic or dehydrated. She has a benign abdominal exam no evidence of acute abdomen. Patient does state that pain worsens with food. Ultrasound of the right upper quadrant was o btained and does show cholelithiasis without evidence of cholecystitis. CBC is without leukocytosis, CMP shows no significant electrolyte abnormalities and liver enzymes within normal limits. Discussed findings of gallstones with the patient. Discussed diet modification with the patient. Explained to her that this can be done as an outpatient electively. Patient tolerating p.o. patient was evaluated and treated as appropriate for the patient's presenting symptoms and complaint, with consideration of any critical or life threatening conditions that may be associated with their obtained history and exam as noted above. All results were discussed with patient and she was provided copies of her imaging that was performed today. Patient provided the opportunity to ask questions, and express concerns. Patient was educated on treatments based on their presumed diagnosis as noted above. At this time we will discharge the patient with return precautions and follow-up recommendations. Verbal discharge instructions given a the bedside. Medication warnings reviewed. Patient is in agreement with this plan and has verbalized understanding of return precautions. After careful consideration I feel that that patient can be safely discharged from the emergency department, they were advised to followup with a primary care physician in 2-3 days. Dictation on this chart was performed using voice recognition software and may result in unintended grammatical, spelling, syntax or errors. - Vital Signs Vital signs: Temp Pulse Resp BP Pulse Ox 97.6 F 80 18 136/78 H 97 02/03/18 20:52 02/03/18 20:52 02/03/18 20:52 02/03/18 20:52 02/03/18 20:52 - Laboratory Result Diagrams: 02/03/18 16:43 02/03/18 16:43 Laboratory results interpreted by me: 02/03/18 02/03/18 16:43 16:43 WBC 13.0 H Absolute Neutrophils 9.4 H AST 42 H - Diagnostic Test Radiology reviewed: Image reviewed, Reports reviewed Discharge - Discharge Clinical Impression: Right upper quadrant abdominal pain, Elevated blood pressure reading, Biliary colic Cholelithiasis Qualifiers: Cholelithiasis location: gallbladder Cholecystitis presence: without cholecystitis Biliary obstruction: without biliary obstruction Qualified Code(s): K80.20 - Calculus of gallbladder without cholecystitis without obstruction Condition: Good Disposition: HOME, SELF-CARE Instructions: Abdominal Pain ([facility]), Colic ([facility]), Gallbladder Disease ([facility]) Additional Instructions: You were seen for pain in your abdomen that is likely related to gallstones. Your work-up today does not show any signs that you need to have your gallbladder removed tonight. However, you will likely need surgery as an outpatient in the coming weeks. Please contact the surgery clinic in the next 24-48 hours to discuss the need for further evaluation and consideration of surgery. Return to the ED immediately if you develop worsening pain, persistent vomiting, become unable to tolerate fluids, have a fever of >1004, or any other symptoms that are concerning to you. Prescriptions: Hydrocodone/Acetaminophen [[place] 5-325 mg Tablet] 1 tab PO Q6H #12 tablet Referrals: JASWANT EDWARDS MD [Primary Care Provider] - Follow up as needed JACKIE DUMONT MD [ACTIVE STAFF] - Follow up as needed
--- NOTE | 2018-02-03 19:20 | RADIOLOGY REPORT (SQ) ---
EXAM DESCRIPTION: U/S ABDOMEN LIMITED W/O DOP COMPLETED DATE/TIME: 02/03/2018 7:00 pm REASON FOR STUDY: ruq pain with eating COMPARISON: None. TECHNIQUE: Dynamic and static grayscale images acquired of the abdomen and recorded on PACS. Priscilla gu selected color Doppler and spectral images recorded. LIMITATIONS: None. FINDINGS: PANCREAS: Not well seen, obscured by acoustical interference from bowel gas. LIVER: Normal size. Echogenic. This suggests fatty infiltration. LIVER VASCULATURE: Normal directional flow of the main portal vein and hepatic veins. GALLBLADDER: Contracted. Stones. No pericholecystic fluid. ULTRASOUND-DETECTED MARLEY'S SIGN: Negative. INTRAHEPATIC DUCTS AND COMMON DUCT: CBD and intrahepatic ducts normal caliber. No filling defects. INFERIOR VENA CAVA: Not assessed. AORTA: Not assessed. RIGHT KIDNEY: Normal size. Normal echogenicity. No solid or suspicious masses. No hydronephrosis. No calcifications. PERITONEAL AND RIGHT PLEURAL SPACE: No ascites or effusions. OTHER: No other significant findings. IMPRESSION: 1. Fatty liver. 2. Cholelithiasis. No acute cholecystitis suggested. TECHNICAL DOCUMENTATION: JOB ID: [id number] [employer]- All Rights Reserved Reading location - IP/workstation name: [email or web address]
[2018-02-03 21:00] VITALS: BP 136/78
--- NOTE | 2018-02-04 01:17 | ER Document Report ---
ED Medical Screen (RME) - General Chief Complaint: Abdominal Pain >50 Stated Complaint: FLANK PAIN Time Seen by Provider: 02/03/18 16:02 Mode of Arrival: Ambulatory Information source: Patient Notes: Patient is a 63-year-old female returns to the emergency room with a complaint of right upper quad pain with some radiation to the back. Patient was here a few nights ago with chest pain that was found out to be according to patient some reflux esophagitis and was sent home on medication for that. However she states that in the last couple of days every time she eats she gets pain in her right upper quad area and it radiates to her back. It has been nonstop for the past several hours. She denies eating any kind of fatty foods because she states "I do not like fatty food". Patient has a history of hypertension, bronchitis. She does not smoke. TRAVEL OUTSIDE OF THE [place] IN LAST 30 DAYS: No - HPI Onset: Last week Onset/Duration: Sudden, Intermittent Context: Right upper quadrant pain after eating. Quality of pain: Cramping, Sharp, Throbbing Severity: Moderate Pain Level: 3 Associated Symptoms: Nausea Exacerbated by: Food Relieved by: Denies Similar symptoms previously: Yes Recently seen / treated by doctor: Yes - Related Data Smoking: Non-smoker Frequency of alcohol use: None Drug Abuse: None Allergies/Adverse Reactions: Penicillins Adverse Reaction (Severe, Verified 02/03/18 14:56) WHEEZE Past Medical History - General Information source: Patient - Social History Cigarette use (# per day): No Chew tobacco use (# tins/day): No Frequency of alcohol use: None Drug Abuse: None Lives with: Family Family history: Reviewed & Not Pertinent - Past Medical History Cardiac Medical History: Reports: Hx Hypertension - on meds Denies: Hx Coronary Artery Disease, Hx Heart Attack Pulmonary Medical History: Reports: Hx Asthma, Hx Bronchitis - hx of , Hx COPD - inhaler,nebulizer, Hx Pneumonia - 08/21 Neurological Medical History: Reports: Hx Seizures - as child-no meds x 1. Denies: Hx Cerebrovascular Accident Endocrine Medical History: Reports: Hx Diabetes Mellitus Type 2 - borderline Renal/ Medical History: Denies: Hx Peritoneal Dialysis Musculoskeltal Medical History: Denies Hx Arthritis Past Surgical History: Reports: Hx Orthopedic Surgery - left foot/ titanium plates placed, Hx Tonsillectomy. Denies: Hx Hysterectomy - Immunizations Hx Diphtheria, Pertussis, Tetanus Vaccination: No Review of Systems - Review of Systems Constitutional: No symptoms reported EENT: No symptoms reported Cardiovascular: No symptoms reported Respiratory: No symptoms reported Gastrointestinal: See HPI, Abdominal pain, Poor appetite Genitourinary: No symptoms reported Female Genitourinary: No symptoms reported Musculoskeletal: No symptoms reported Skin: No symptoms reported Hematologic/Lymphatic: No symptoms reported Neurological/Psychological: No symptoms reported -: Yes All other systems reviewed and negative Physical Exam - Vital signs Vitals: Temp Pulse Resp BP Pulse Ox 98.9 F 94 18 148/89 H 97 02/03/18 15:12 02/03/18 15:12 02/03/18 15:12 02/03/18 15:12 02/03/18 15:12 Interpretation: Hypertensive - Notes Notes: Physical exam Patient is a well-nourished well-developed slightly overweight 63-year-old female who is in no apparent distress on physical exam today. Auscultation patient's lung humphrey show she has bilateral breath sounds with breath sounds increased and clear throughout. There is no rhonchi rales or wheeze noted. Cardiac exam: Examination patient's heart shows she has a regular rate and rhythm without murmurs noted. Abdomen: Examination of patient's abdomen shows it to be nontender to palpation in any quadrant at this time. She has a negative Kimble sign at this time. Bowel sounds are present in all 4 quads. Next Lower extremities examination patient's lower extremity shows no signs of pitting edema. Course - Re-evaluation Re-evalutation: 02/04/18 01:16 I originally evaluated patient from the triage room where I examined her and started her out on her direction of workup. I have seen the patient personally and have interacted with him physically. I have placed the orders for further labs and diagnostic testing and patient will be taken to the back where a additi onal provider will be assigned to him the patient throughout the rest of her stay in the course of her ailment. - Vital Signs Vital signs: Temp Pulse Resp BP Pulse Ox 97.6 F 80 18 136/78 H 97 02/03/18 20:52 02/03/18 20:52 02/03/18 20:52 02/03/18 20:52 02/03/18 20:52 - Laboratory Result Diagrams: 02/03/18 16:43 02/03/18 16:43 Laboratory results interpreted by me: 02/03/18 02/03/18 16:43 16:43 WBC 13.0 H Absolute Neutrophils 9.4 H AST 42 H Doctor's Discharge - Discharge Clinical Impression: Right upper quadrant abdominal pain, Elevated blood pressure reading, Biliary colic Cholelithiasis Qualifiers: Cholelithiasis location: gallbladder Cholecystitis presence: without cholecystitis Biliary obstruction: without biliary obstruction Qualified Code(s): K80.20 - Calculus of gallbladder without cholecystitis without obstruction Condition: Good Disposition: HOME, SELF-CARE Instructions: Abdominal Pain ([facility]), Colic ([facility]), Gallbladder Disease ([facility]) Additional Instructions: You were seen for pain in your abdomen that is likely related to gallstones. Your work-up today does not show any signs that you need to have your gallbladder removed tonight. However, you will likely need surgery as an outpatient in the coming weeks. Please contact the surgery clinic in the next 24-48 hours to discuss the need for further evaluation and consideration of surgery. Return to the ED immediately if you develop worsening pain, persistent vomiting, become unable to tolerate fluids, have a fever of >1004, or any other symptoms that are concerning to you. Prescriptions: Hydrocodone/Acetaminophen [[place] 5-325 mg Tablet] 1 tab PO Q6H #12 tablet Referrals: JASWANT EDWARDS MD [Primary Care Provider] - Follow up as needed JACKIE DUMONT MD [ACTIVE STAFF] - Follow up as needed
== END 2018-02-03 20:58 | disposition home or self-care (01) ==
LOC: ER 14:37
DX: K80.50 Calculus of bile duct without cholangitis or cholecystitis without obstruction (principal); K80.20 Calculus of gallbladder without cholecystitis without obstruction; R10.11 Right upper quadrant pain; I10 Essential (primary) hypertension; M54.9 Dorsalgia, unspecified; R63.0 Anorexia; J44.9 Chronic obstructive pulmonary disease, unspecified; E11.9 Type 2 diabetes mellitus without complications
CPT/HCPCS: 99284; 36415; 83690; 85025; 80053; 81001; 76705; S0119

== ENCOUNTER → 2018-02-13 | Outpatient (CLI) | payer BC, OTHER ==
--- NOTE | 2018-02-13 12:58 | EKG REPORT ---
SEVERITY:- NORMAL ECG - SINUS RHYTHM : Confirmed by: Mehran Gonzalez MD 13-Feb-2018 12:58:19
[2018-02-13 13:07] LABS: HEMATOCRIT 38.8 % (36.0-47.0); HEMOGLOBIN 12.9 g/dL (12.0-15.5); MEAN CORPUSCULAR HEMOGLOBIN 28.8 pg (27.0-33.4); MEAN CORPUSCULAR HGB CONC 33.3 g/dL (32.0-36.0); MEAN CORPUSCULAR VOLUME 87 fl (80-97); PLATELET COUNT 294 10^3/uL (150-450); RED BLOOD COUNT 4.48 10^6/uL (3.72-5.28); WHITE BLOOD COUNT 11.1 10^3/uL (4.0-10.5)
--- NOTE | 2018-02-13 13:16 | RADIOLOGY REPORT (SQ) ---
EXAM DESCRIPTION: CHEST PA/LATERAL COMPLETED DATE/TIME: 02/13/2018 1:02 pm REASON FOR STUDY: PRE-OP,SOB COMPARISON: 01/29/2018 and 02/16/2016. EXAM PARAMETERS: NUMBER OF VIEWS: two views TECHNIQUE: Digital Frontal and Lateral radiographic views of the chest acquired. RADIATION DOSE: NA LIMITATIONS: none FINDINGS: LUNGS AND PLEURA: Hyperinflation. Mild chronic interstitial changes. No opacities, patricia s or pneumothorax. No pleural effusion. MEDIASTINUM AND HILAR STRUCTURES: No masses or contour abnormalities. HEART AND VASCULAR STRUCTURES: Heart normal size. No evidence for failure. BONES: No acute findings. HARDWARE: None in the chest. OTHER: No other significant finding. IMPRESSION: STABLE CHRONIC CHANGES. NO ACUTE RADIOGRAPHIC FINDING IN THE CHEST. TECHNICAL DOCUMENTATION: JOB ID: [id number] [employer]- All Rights Reserved Reading location - IP/workstation name: [email or web address]
[2018-02-13 13:33] LABS: ALANINE AMINOTRANSFERASE 44 U/L (9-52); ALBUMIN 4.2 g/dL (3.5-5.0); ALKALINE PHOSPHATASE 85 U/L (38-126); ANION GAP 11 (5-19); ASPARTATE AMINO TRANSFERASE 39 U/L (14-36); BILIRUBIN,DIRECT 0.4 mg/dL (0.0-0.4); BILIRUBIN,TOTAL 0.5 mg/dL (0.2-1.3); BLOOD UREA NITROGEN 17 mg/dL (7-20); CALCIUM 10.4 mg/dL (8.4-10.2); CARBON DIOXIDE 26 mmol/L (22-30); CHLORIDE 104 mmol/L (98-107); GLUCOSE 95 mg/dL (75-110); POTASSIUM 4.8 mmol/L (3.6-5.0); SODIUM 141.4 mmol/L (137-145); TOTAL PROTEIN 6.6 g/dL (6.3-8.2)
== END ==
LOC: OD 12:04
PROVIDERS: ATTEND Surgery
DX: R06.02 Shortness of breath (principal)
CPT/HCPCS: 36415; 71046; 80048; 80076; 85027; 93005; 93010

== ENCOUNTER 2018-03-01 07:42 | Day surgery (SDC) | payer BC, OTHER ==
[2018-02-23 10:28] LABS: HEMATOCRIT 38.8 % (36.0-47.0); HEMOGLOBIN 12.9 g/dL (12.0-15.5); MEAN CORPUSCULAR HEMOGLOBIN 28.5 pg (27.0-33.4); MEAN CORPUSCULAR HGB CONC 33.2 g/dL (32.0-36.0); MEAN CORPUSCULAR VOLUME 86 fl (80-97); PLATELET COUNT 297 10^3/uL (150-450); RED BLOOD COUNT 4.53 10^6/uL (3.72-5.28); RED CELL DISTRIBUTION WIDTH 13.9 % (11.5-14.0); WHITE BLOOD COUNT 10.3 10^3/uL (4.0-10.5)
[2018-02-23 10:57] LABS: ALANINE AMINOTRANSFERASE 53 U/L (9-52); ALBUMIN 4.2 g/dL (3.5-5.0); ALKALINE PHOSPHATASE 108 U/L (38-126); ANION GAP 8 (5-19); ASPARTATE AMINO TRANSFERASE 25 U/L (14-36); BILIRUBIN,DIRECT 0.1 mg/dL (0.0-0.4); BILIRUBIN,TOTAL 0.4 mg/dL (0.2-1.3); BLOOD UREA NITROGEN 21 mg/dL (7-20); CALCIUM 10.1 mg/dL (8.4-10.2); CARBON DIOXIDE 28 mmol/L (22-30); CHLORIDE 104 mmol/L (98-107); GLUCOSE 97 mg/dL (75-110); TOTAL PROTEIN 6.6 g/dL (6.3-8.2)
--- NOTE | 2018-02-23 11:27 | RADIOLOGY REPORT (SQ) ---
EXAM DESCRIPTION: CHEST PA/LATERAL COMPLETED DATE/TIME: 02/23/2018 10:00 am REASON FOR STUDY: PRE-OP COMPARISON: 02/23/2018 EXAM PARAMETERS: NUMBER OF VIEWS: two views TECHNIQUE: Digital Frontal and Lateral radiographic views of the chest acquired. RADIATION DOSE: NA LIMITATIONS: none FINDINGS: LUNGS AND PLEURA: No opacities, masses or pneumothorax. No pleural effusion. MEDIASTINUM AND HILAR STRUCTURES: No masses or contour abnormalities. HEART AND VASCULAR STRUCTURES: Heart normal size. No evidence for failure. BONES: No acute findings. HARDWARE: None in the chest. OTHER: No other significant finding. IMPRESSION: NO SIGNIFICANT RADIOGRAPHIC FINDING IN THE CHEST. TECHNICAL DOCUMENTATION: JOB ID: [id number] [employer]- All Rights Reserved Reading location - IP/workstation name: [email or web address]
--- NOTE | 2018-02-23 20:52 | EKG REPORT ---
SEVERITY:- NORMAL ECG - SINUS RHYTHM : Confirmed by: Madison Abbasi 23-Feb-2018 20:52:23
[~2018-03-01 07:42] MED LIST changes: +IBUPROFEN 800 MG in NORMAL SALINE 250 ML IV PRN; +VANCOMYCIN HCL 1,000 MG in DEXTROSE 5%-WATER 250 ML IV PRN
[2018-03-01] MEDS ORDERED: BUPIVACAINE HCL 0.25 % INJ/PF (2.5 MG/1 ML) 30 ML VIAL ONE (07:59)
[2018-03-01 08:41] LABS: POTASSIUM 4.1 mmol/L (3.6-5.0)
[2018-03-01] MEDS ORDERED: ALBUTEROL SULFATE 0.083% NEB 2.5 MG/3 ML AMPUL NEB ONE (08:57)
[2018-03-01] MEDS ORDERED: METOCLOPRAMIDE HCL INJ/PF 10 MG/2 ML SDV ONE (10:25)
[2018-03-01] MEDS ORDERED: FAMOTIDINE INJ/PF 20 MG/2 ML SDV IV ONE (10:25)
[2018-03-01] MEDS ORDERED: MIDAZOLAM 2 MG/2 ML INJ ONE ×2 (10:34→10:54)
[2018-03-01] MEDS ORDERED: DEXAMETHASONE SOD PHOSPHATE INJ 4 MG/1 ML VIAL ONE (10:54)
[2018-03-01] MEDS ORDERED: ONDANSETRON HCL INJ/PF 4 MG/2 ML SDV ONE (10:54)
[2018-03-01] MEDS ORDERED: FENTANYL CITRATE INJ/PF 100 MCG/2 ML AMPUL ONE ×2 (10:54→12:43)
[2018-03-01] MEDS ORDERED: LIDOCAINE 2% INJ-PF (20 MG/ML) 10 ML AMPUL ONE (10:54)
[2018-03-01] MEDS ORDERED: PROPOFOL INJ 200 MG/20 ML VIAL IV ONE (10:55)
[2018-03-01] MEDS ORDERED: ACETAMINOPHEN 1,000 MG/100 ML RTUPB IV ONE (10:55)
[2018-03-01] MEDS ORDERED: ONDANSETRON HCL INJ/PF 4 MG/2 ML SDV IV PRN (11:36)
[2018-03-01] MEDS ORDERED: PROMETHAZINE HCL INJ 25 MG/1 ML VIAL IV PRN ×2 (11:36)
[2018-03-01] MEDS ORDERED: DIPHENHYDRAMINE HCL 50 MG/ML VIAL IV PRN (11:36)
[2018-03-01] MEDS ORDERED: MEPERIDINE HCL/PF INJ 25 MG/1 ML DISP.SYRIN IV PRN (11:36)
[2018-03-01] MEDS ORDERED: FENTANYL CITRATE INJ/PF 100 MCG/2 ML AMPUL IV PRN ×3 (11:36)
[2018-03-01] MEDS ORDERED: VECURONIUM BROMIDE INJ 10 MG VIAL IV ONE (13:47)
[2018-03-01] MEDS ORDERED: SUCCINYLCHOLINE CHLORIDE INJ 200 MG/10 ML VIAL ONE (13:47)
[2018-03-01 14:56] VITALS: BP 122/64
--- NOTE | 2018-03-02 08:16 | Discharge Summary ---
Discharge Summary (SDC) - Discharge Final Diagnosis: Gallbladder cancer Date of Surgery: 03/01/18 Discharge Date: 03/01/18 Condition: Stable Forms: ASU Anesthesia D/C Instruction, Discharge POC-Surgical Service Treatment or Instructions: Discharge home. Diet as tolerated. Activity: No lifting greater than 10 pounds. My office will call to schedule follow-up surgery. [place] 10/325 mg p.o . every 6 hours as needed for pain. Referrals: JASWANT EDWARDS MD [Primary Care Provider] - JACKIE DUMONT MD [ACTIVE STAFF] - Discharge Diet: As Tolerated Respiratory Treatments at Home: Deep Breathing/Coughing Discharge Activity: Balance Activity w/Rest, No Driving, No Lifting Over 10 Pounds, No Lifting/Push/Pulling, Slowly Increase Activity, No tub bath Home Care Assistance: Provided by Family Report the Following to Your Physician Immediately: Shortness of Breath, Nausea, Vomiting, Increase in Pain, Fever over 101 Degrees, Unusual Bleeding, Redness, Swelling, Warmth, Increased Soreness, Drainage-Yellow, Drainage-Brito, Drainage- Green, Drainage-Foul Smelling, Large Clots, Wheezing, IV Site Infection Signs
--- NOTE | 2018-03-02 08:26 | Operative Report ---
Nonrecallable Operative Report DATE OF SURGERY: 03/01/18 PREOPERATIVE DIAGNOSIS: Symptomatic cholelithiasis POSTOPERATIVE DIAGNOSIS: Gallbladder cancer OPERATION: Exploratory laparoscopy with biopsy SURGEON: JACKIE DUMONT 1ST PIPE THREADING MACHINE OPERATOR: SHARRI MACKEY ANESTHESIA: GA TISSUE REMOVED OR ALTERED: 1. Biopsy of gallbladder mass. 2. Omental implant COMPLICATIONS: Gallbladder mass identified at laparoscopy. Frozen sections show gallbladder cancer ESTIMATED BLOOD LOSS: Minimal PROCEDURE: Drains/implants: 15 Vincentian round Stan drain in the gallbladder fossa. Procedure in detail: After informed consent was obtained, the patient was brought into the operating room and laid in supine position. The area of the abdomen was prepped and draped in a normal sterile fashion. A 15 blade scalpel was used to create a supraumbilical incision. This was deepened using blunt dissection. The cicatrix was identified, grasped with a Kristine clamp, and retracted upwards. The linea alba fascia was incised sharply. The abdomen was entered sharply. The balloon trocar was inserted, and pneumoperitoneum was achieved. A subxiphoid 5 mm port was placed under direct laparoscopic visualization. 2 more 5 mm ports were placed in the right upper quadrant in similar fashion. Atraumatic graspers were then placed through the 5 mm ports. There was a dense inflammatory reaction around the gallbladder. The omentum was densely adhered to the gallbladder. Very slowly and carefully the omentum was peeled away from the gallbladder. A mass like lesion was identified in the wall of the gallbladder at the midportion. This had the appearance of gallbladder cancer. The abdomen was then quickly surveyed. There was found to be in apparent tumor implant in the omentum. This was excised using electrocautery. Biopsies were taken of the gallbladder mass with a biopsy forcep. All of these specimens were then placed into an Endo Catch bag and pulled out through the umbilicus. Pathology examined the frozen sections, and confirmed that it is adenocarcinoma. At this time a drain was introduced into the abdomen, in the gallbladder fossa. The trochars were removed, and pneumoperitoneum was relieved. The supraumbilical fascia was closed using 0 Vicryl suture in [id number] fashion. The overlying skin was closed using 4-0 Vicryl Rapide suture in subcuticular fashion. Dressings were placed, and the procedure was concluded. All sponge, instrument, and needle counts were correct x2. Condition: Fair. Recommendation: I will have the patient see my partner Dr. Michaud for radical cholecystectomy in the very near future. I have discussed the situation with the patient and her . She is in agreement with the treatment plan. Sharri Mackey PA-C was scrubbed and present the entirety of the procedure. She assisted with all portions of the procedure including opening of the abdomen, insertion of the trochars, biopsy of the mass, closure of the fascia, and closure of the skin.
== END 2018-03-01 14:20 | disposition home or self-care (01) ==
LOC: OROUT 07:42
PROVIDERS: ATTEND Surgery
DX: C23 Malignant neoplasm of gallbladder (principal); I10 Essential (primary) hypertension; J44.9 Chronic obstructive pulmonary disease, unspecified; E66.9 Obesity, unspecified; R73.03 Prediabetes; Z87.891 Personal history of nicotine dependence; Z79.899 Other long term (current) drug therapy; Z79.51 Long term (current) use of inhaled steroids; Z88.0 Allergy status to penicillin; Z79.84 Long term (current) use of oral hypoglycemic drugs; Z68.30 Body mass index [BMI] 30.0-30.9, adult
CPT/HCPCS: 93005; 36415 ×2; 82947; 84132; 85027; 80076; 80048; 88342 ×2; 88341 ×2; 88305 ×2; 88331 ×2; 71046; 93010; 47579; J2250; J1100; J3010; J3490 ×2; J2765; J0330; J2405; J7060; J7050; J2704; J3370; S0028; J0131; J1741; 790

== ENCOUNTER → 2018-03-05 | Outpatient (CLI) | payer BC, OTHER ==
--- NOTE | 2018-03-05 14:14 | RADIOLOGY REPORT (SQ) ---
EXAM DESCRIPTION: CT CHEST WITH COMPLETED DATE/TIME: 03/05/2018 1:39 pm REASON FOR STUDY: C80.1 MALIGNANT (PRIMARY) NEOPLASM, UNSPECIFIED C80.1 MALIGNANT (PRIMARY) NEOPLAS M, UNSPECIFIED COMPARISON: 2006 TECHNIQUE: CT scan of the chest performed using helical scanning technique with dynamic intravenous contrast injection. Images reviewed with lung, soft tissue and bone windows. Reconstructed coronal and sagittal MPR and MIP images reviewed. All images stored on PACS. All CT scanners at this facility use dose modulation, iterative reconstruction, and/or weight based d osing when appropriate to reduce radiation dose to as low as reasonably achievable (ALARA). [facility]: Dose Right [facility]: CareDose [facility]: Dose Right [facility]: Teradose 4D [facility]: Affinity [place] CONTRAST TYPE AND DOSE: See separate report of the same date. RENAL FUNCTION: See separate report of the same date. RADIATION DOSE: . LIMITATIONS: None. FINDINGS: LUNGS AND PLEURA: Less than 4 mm pleural-based nodule middle lobe stable since 2006. No d eveloping nodules or infiltrates. There is a background of COPD. No effusions. HILAR AND MEDIASTINAL STRUCTURES: No identified masses or abnormal nodes. HEART AND VASCULAR STRUCTURES: No aneurysm or dissection. No central pulmonary emboli. No pericardi al effusion. HARDWARE: None in the chest. UPPER ABDOMEN: See separate report of the CT of the abdomen. THYROID AND OTHER SOFT TISSUES: No masses. No adenopathy. BONES: Nothing acute. OTHER: No other significant finding. IMPRESSION: No acute findings in the chest. TECHNICAL DOCUMENTATION: JOB ID: [id number] Quality ID # [id number]: Final reports with documentation of one or more dose reduction techniques (e.g., Au tomated exposure control, adjustment of the mA and/or kV according to patient size, use of iterative reconstruction technique) 2010 [employer]- All Rights Reserved Reading location - IP/workstation name: [email or web address]
--- NOTE | 2018-03-05 14:23 | RADIOLOGY REPORT (SQ) ---
EXAM DESCRIPTION: CT ABD/PELVIS WITH IV ORAL COMPLETED DATE/TIME: 03/05/2018 1:39 pm REASON FOR STUDY: C80.1 MALIGNANT (PRIMARY) NEOPLASM, UNSPECIFIED C80.1 MALIGNANT (PRIMARY) NEOPLAS M, UNSPECIFIED COMPARISON: None. TECHNIQUE: CT scan of the abdomen and pelvis performed with intravenous and oral contrast using gina abelino scanning technique with dynamic intravenous contrast injection. Images reviewed with lung, soft t issue, and bone windows. Reconstructed coronal and sagittal MPR images reviewed. Delayed images for e valuation of the urinary system also acquired. All images stored on PACS. All CT scanners at this facility use dose modulation, iterative reconstruction, and/or weight based d osing when appropriate to reduce radiation dose to as low as reasonably achievable (ALARA). [facility]: Dose Right [facility]: CareDose [facility]: Dose Right [facility]: Teradose 4D [facility]: Gramovox CONTRAST TYPE AND DOSE: contrast/concentration: Isovue 350.00 mg/ml; Total Contrast Delivered: 95.0 ml; Total Saline Delivered: 71.0 ml RENAL FUNCTION: GFR > 60. RADIATION DOSE: CT Rad equipment meets quality standard of care and radiation dose reduction techniq ues were employed. CTDIvol: 7.7 - 11.9 mGy. DLP: 1524 mGy-cm. . LIMITATIONS: None. FINDINGS: LOWER CHEST: See separate report of the CT of the chest. LIVER: Normal size. No masses. No dilated ducts. SPLEEN: Normal size. No focal lesions. PANCREAS: No masses. No significant calcifications. No adjacent inflammation or peripancreatic fluid collections. Pancreatic duct not dilated. GALLBLADDER: Gallstones. No inflammatory changes to suggest cholecystitis. ADRENAL GLANDS: No significant masses or asymmetry. RIGHT KIDNEY AND URETER: No solid masses. 5 mm stone upper pole. No hydronephrosis or hydroureter . LEFT KIDNEY AND URETER: No solid masses. 2 mm stone lower pole. No hydronephrosis or hydroureter. AORTA AND VESSELS: No aneurysm. No dissection. Renal arteries, SMA, celiac without stenosis. RETROPERITONEUM: No retroperitoneal adenopathy, hemorrhage or masses. BOWEL AND PERITONEAL CAVITY: Percutaneous drainage catheter entering subhepatic with tip in posterior margin right lobe. No obstruction. No visualized masses. No free fluid. Stranding of the fat just inferior to the gallbladder. No fluid collections. No free air. APPENDIX: Not visualized. PELVIS: No significant masses. Normal bladder. No free fluid. ABDOMINAL WALL: No masses. No hernias. BONES: No significant or acute findings. OTHER: No other significant finding. IMPRESSION: 1. Cholelithiasis. Percutaneous drain right upper quadrant. No organized fluid collection. 2. Nonobstructing renal calculi. TECHNICAL DOCUMENTATION: JOB ID: [id number] Quality ID # [id number]: Final reports with documentation of one or more dose reduction techniques (e.g., Au tomated exposure control, adjustment of the mA and/or kV according to patient size, use of iterative reconstruction technique) 2010 [employer]- All Rights Reserved Reading location - IP/workstation name: [email or web address]
[2018-03-06 09:33] LABS: CANCER ANTIGEN (CA) 125 15.8 U/mL (0.0-38.1)
== END ==
LOC: RAD 10:57
PROVIDERS: ATTEND Surgery
DX: C80.1 Malignant (primary) neoplasm, unspecified (principal)
CPT/HCPCS: 36415; 71260; 74177; 82378; 86301; 86304

== ENCOUNTER 2018-03-06 06:35 | Inpatient (IN) | payer BC, OTHER ==
[~2018-03-06 06:35] MED LIST changes: +CEFAZOLIN 1 GM/D5W RTU 1 GM/50 ML RTUPB IV PRN; +CIPROFLOXACIN 400 MG/D5W RTU 400 MG/200 ML RTUPB IV PRN; -IBUPROFEN 800 MG in NORMAL SALINE 250 ML IV PRN; -LACTATED RINGERS 1000 ML IV PRN; -LIDOCAINE 0.5% INJ-PF (5 MG/ML) 50 ML SDV SUBCUT PRN; +METRONIDAZOLE 500 MG/NS RTU 500 MG/100 ML RTUPB IV PRN; -VANCOMYCIN HCL 1,000 MG in DEXTROSE 5%-WATER 250 ML IV PRN
[2018-03-06] MEDS ORDERED: CIPROFLOXACIN 400 MG/D5W RTU 400 MG/200 ML RTUPB IV ONE (06:47)
[2018-03-06 07:26] LABS: POTASSIUM 4.4 mmol/L (3.6-5.0)
[2018-03-06] MEDS ORDERED: BUPIVACAINE HCL 0.5%-EPI 1:200000 INJ/PF 30 ML VIAL ONE (07:34)
[2018-03-06] MEDS ORDERED: FENTANYL CITRATE INJ/PF 250 MCG/5 ML AMPULE ONE (09:12)
[2018-03-06] MEDS ORDERED: ACETAMINOPHEN 1,000 MG/100 ML RTUPB IV ONE (09:12)
[2018-03-06] MEDS ORDERED: FENTANYL CITRATE INJ/PF 100 MCG/2 ML AMPUL ONE (09:12)
[2018-03-06] MEDS ORDERED: HYDROMORPHONE HCL INJ/PF 2 MG/ML AMPULE ONE (09:12)
[2018-03-06] MEDS ORDERED: PROPOFOL INJ 200 MG/20 ML VIAL IV ONE (09:12)
[2018-03-06] MEDS ORDERED: MIDAZOLAM 2 MG/2 ML INJ ONE (09:15)
[2018-03-06] MEDS ORDERED: PROMETHAZINE HCL INJ 25 MG/1 ML VIAL IV PRN (10:47)
[2018-03-06] MEDS ORDERED: FENTANYL CITRATE INJ/PF 100 MCG/2 ML AMPUL IV PRN ×3 (10:47)
[2018-03-06] MEDS ORDERED: DIPHENHYDRAMINE HCL 50 MG/ML VIAL IV PRN (10:47)
[2018-03-06] MEDS ORDERED: MORPHINE SULFATE 10 MG/ML INJ IV PRN (10:47)
[2018-03-06] MEDS ORDERED: ONDANSETRON HCL INJ/PF 4 MG/2 ML SDV IV PRN (12:34)
[2018-03-06] MEDS ORDERED: PHARMACY COMMUNICATION ORDER MC NR (12:45)
[2018-03-06] MEDS ORDERED: ALBUTEROL SULFATE 0.083% NEB 2.5 MG/3 ML AMPUL NEB ONE (12:52)
[2018-03-06] MEDS ORDERED: ONDANSETRON HCL INJ/PF 4 MG/2 ML SDV ONE (12:54)
[2018-03-06] MEDS ORDERED: NEOSTIGMINE METHYLSULFATE 10 MG/10 ML VIAL ONE (12:54)
[2018-03-06] MEDS ORDERED: ROCURONIUM BROMIDE INJ 50 MG/5 ML VIAL IV ONE (12:54)
[2018-03-06] MEDS ORDERED: DEXAMETHASONE SOD PHOSPHATE INJ 4 MG/1 ML VIAL ONE (12:54)
[2018-03-06] MEDS ORDERED: SUCCINYLCHOLINE CHLORIDE INJ 200 MG/10 ML VIAL ONE (12:54)
[2018-03-06] MEDS ORDERED: GLYCOPYRROLATE 1 MG/5 ML SYRINGE ONE (12:54)
[2018-03-06] MEDS: FENTANYL CITRATE INJ/PF 100 MCG/2 ML AMPUL ONE ×2 (12:56→13:06)
[2018-03-06] MEDS: MORPHINE SULFATE 10 MG/ML INJ ONE ×2 (13:15→13:36)
[2018-03-06] MEDS ORDERED: MORPHINE SULFATE 60 MG/60 ML RTUINJ IV ONE (13:56)
--- NOTE | 2018-03-06 14:57 | OPERATIVE REPORT E ---
Operative Report NAME: CARMEN RUSSO : 1955 AGE: 63Y DATE OF SURGERY: 03/06/2018 ROOM: OR PREOPERATIVE DIAGNOSIS: Gallbladder cancer. POSTOPERATIVE DIAGNOSIS: Gallbladder cancer. OPERATIVE PROCEDURE: Radical cholecystectomy with portal node dissection. SURGEON: MARLENI DESHPANDE M.D. ASSISTANTS: embalmer assistant was Eldon Yeung M.D.; second optical assistant for wound retraction and closure was MASSIEL Stack. ANESTHESIA: General. INDICATIONS FOR PROCEDURE: This is a 63-year-old female who is about 5 days status post an elective laparoscopic cholecystectomy. 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 She was, therefore, scheduled for this procedure. PROCEDURE: The patient was brought to the operating room awake and alert in stable condition, placed on the operating table in a supine position, induced under general anesthesia, and intubated. After appropriate timeout the abdomen was prepped and draped in the usual sterile fashion for the procedure. A Kristine incision was made from the level of the xiphoid underneath the costal margin about 2 cm away to the anterior axillary line. Dissection was carried down through the subcutaneous tissue with Bovie cautery. The rectus fascia and transversalis muscle were divided with Bovie cautery. We gained access to the abdominal cavity. The falciform ligament was divided using a LigaSure device and then we placed the Omni retractor for upper costal margin retraction. We mobilized the right lobe of the liver, taking down the triangular ligament as well as the posterior peritoneal attachments all the way to the area of the liver so we could mobilize the right lobe up into the field. Once this was done we placed a liver retractor to retract the right lobe anteriorly. We turned attention to the krysta hepatis. We identified the krysta hepatis and the bile duct and the cystic duct. We cleared the cystic duct away from the bile duct and doubly ligated the stay side with 2-0 silk suture and divided it. We then identified our proximal extent of our dissection, which was the hilar plate of the liver, and gently marked the peritoneum on top of the portal triad by scoring it with Bovie cautery. We began our dissection at the hilum of the liver and cleared the fibrofatty tissue and lymphatic tissue away from the common bile duct, the hepatic artery and the portal vein. This continued caudad all the way to the top of the pancreas. We cleared all the surrounding fibrofatty tissue away from those 3 structures and sent those down as a specimen. We identified the proper hepatic artery as well as the right hepatic artery. We doubly ligated the cystic artery, coming off the right hepatic artery with 2-0 silk suture. Once this was done there was a small rent in the right side of the common bile duct which was closed with interrupted 3-0 Vicryl suture with good closure. We then turned attention to the gallbladder fossa. We grasped the fundus of the gallbladder with a Kristine clamp and then marked an approximately 2 cm thick segment of the right lobe of the liver where the gallbladder attaches with Bovie cautery and excised that portion of the liver using a LigaSure device all the way down to the portal hepatis, taking with it the wedge of liver as well as the gallbladder, and that was sent down as a separate specimen. Pathology proved one margin of the liver to be positive and, therefore, a second margin of the liver was taken and that margin proved negative. Once this was completed the omentum that was affixed to the gallbladder at the first operation that had been mobilized off the gallbladder was excised. This was done with a LigaSure device, taking it off the hepatic flexure of the colon and wedging out about a third of the omentum, freeing up the hepatic flexure of the colon away from the omentum and continuing that dissection up towards the duodenum. Once this was completed there was some fibrofatty tissue at the inferior edge of the duodenum which was also excised with a LigaSure device, being careful not to injure the duodenum. Once all visible tumor was removed the upper abdomen was copiously irrigated with normal saline. The krysta hepatis was then sprayed with a Tisseel tissue sealant. A Gio-Haynes drain was placed in the krysta hepatis and brought out through the stab wound in the right lower quadrant. The transversalis fascia and the posterior rectus sheath was closed with a running 0-Vicryl suture and the anterior sheath was closed with interrupted #1 PDS suture. The wound was irrigated with normal saline and suctioned dry and the skin was closed with stainless skin clips. This completed the procedure. Estimated blood loss was 150 mL. Sponge and needle counts were correct x2. The patient was awakened in the operating room, extubated, and transferred to recovery in stable condition, no complications. DICTATING PHYSICIAN: MARLENI DESHPANDE M.D. [id number] PHY#: [id number] ID: [id number] JOB#: [id number] ACCT: [id number] cc:MARLENI DESHPANDE M.D. >
[2018-03-06] MEDS ORDERED: DEXTROSE 50%-WATER 25 GM/50 ML DISP.SYRIN IV PRN ×2 (16:39)
[2018-03-06] MEDS ORDERED: DEXTROSE 40% GEL 15 GM TUBE PO PRN ×2 (16:39)
[2018-03-06] MEDS ORDERED: GLUCAGON,HUMAN RECOMB 1 MG INJ IM PRN (16:39)
[2018-03-06] MEDS: CEFAZOLIN 1 GM/D5W RTU 1 GM/50 ML RTUPB IV SCH ×2 (18:20→22:05)
[2018-03-06] MEDS: METRONIDAZOLE 500 MG/NS RTU 500 MG/100 ML RTUPB IV SCH ×3 (18:20→22:57)
[2018-03-06] MEDS: INSULIN REG, HUMAN 100 UNIT/ML 3 ML VIAL (PYX) SUBCUT SCH (18:34)
[2018-03-06] MEDS: METOCLOPRAMIDE HCL INJ/PF 10 MG/2 ML SDV IV SCH ×2 (18:48→22:05)
[2018-03-06] MEDS: IPRATROPIUM/ALBUTEROL 0.5-2.5 MG/3 ML AMPUL NEB PRN ×2 (18:57→22:08)
--- NOTE | 2018-03-06 18:59 | RADIOLOGY REPORT (SQ) ---
EXAM DESCRIPTION: KUB/ABDOMEN (SINGLE VIEW) COMPLETED DATE/TIME: 03/06/2018 5:56 pm REASON FOR STUDY: Check Placement of NG Tube COMPARISON: None. TECHNIQUE: AP view lower CT abdomen. LIMITATIONS: None. FINDINGS: Nasogastric tube is present in the stomach coiled in the antrum and the tip is in the fund us. Surgical aure. IMPRESSION: Nasogastric tube coiled in the stomach. TECHNICAL DOCUMENTATION: JOB ID: [id number] [employer]- All Rights Reserved Reading location - IP/workstation name: [email or web address]
[2018-03-06] MEDS: DEXTROSE 5%-LACTATED RINGERS 1,000 ML IV PRN (19:24)
[2018-03-06] MEDS: FAMOTIDINE INJ/PF 20 MG/2 ML SDV IV SCH (22:05)
--- NOTE | 2018-03-06 22:05 | RADIOLOGY REPORT (SQ) ---
XR ABDOMEN 1 VIEW (KUB) HISTORY: Evaluate nasogastric tube. COMPARISON: Radiographs from earlier the same day. FINDINGS: The nasogastric tube is coiled in the stomach. Postsurgical changes with skin aure are noted. A right upper quadrant drain is noted. Opacified contrast is present. IMPRESSION: NG tube in stomach.
[2018-03-07] MEDS: INSULIN REG, HUMAN 100 UNIT/ML 3 ML VIAL (PYX) SUBCUT SCH ×4 (01:16→18:27)
[2018-03-07] MEDS: CEFAZOLIN 1 GM/D5W RTU 1 GM/50 ML RTUPB IV SCH ×3 (05:26→21:05)
[2018-03-07] MEDS: METRONIDAZOLE 500 MG/NS RTU 500 MG/100 ML RTUPB IV SCH ×3 (05:26→21:04)
[2018-03-07] MEDS: DEXTROSE 5%-LACTATED RINGERS 1,000 ML IV PRN ×2 (06:58→18:25)
[2018-03-07 07:23] LABS: HEMATOCRIT 40.1 % (36.0-47.0); HEMOGLOBIN 13.5 g/dL (12.0-15.5); MEAN CORPUSCULAR HEMOGLOBIN 28.8 pg (27.0-33.4); MEAN CORPUSCULAR HGB CONC 33.6 g/dL (32.0-36.0); MEAN CORPUSCULAR VOLUME 86 fl (80-97); PLATELET COUNT 407 10^3/uL (150-450); RED BLOOD COUNT 4.67 10^6/uL (3.72-5.28); RED CELL DISTRIBUTION WIDTH 14.3 % (11.5-14.0); WHITE BLOOD COUNT 22.2 10^3/uL (4.0-10.5)
--- NOTE | 2018-03-07 07:32 | PDOC PROGRESS REPORT ---
Subjective Progress Note for:: 03/07/18 Reason For Visit: GALLBLADDER CANCER post op radical cholecystectomy with portal node dissection Physical Exam Vital Signs: Temp Pulse Resp BP Pulse Ox 98.7 F 115 H 18 131/80 H 92 03/07/18 04:07 03/07/18 04:07 03/07/18 04:07 03/07/18 04:07 03/07/18 04:07 Intake & Output 03/06/18 03/07/18 03/08/18 06:59 06:59 06:59 Intake Total 0 5000 Output Total 2565 Balance 0 2435 Weight 81.65 kg 84.7 kg Respiratory exam: PRESENT: wheezes - abd soft, min incisional tenderness dressing dry debby serous GI/Abdominal exam: PRESENT: soft Results Laboratory Results: 03/07/18 06:37 03/06/18 03/07/18 06:54 06:37 WBC 22.2 H RBC 4.67 Hgb 13.5 Hct 40.1 MCV 86 MCH 28.8 MCHC 33.6 RDW 14.3 H Plt Count 407 Seg Neutrophils % Not Reportable Lymphocytes % Not Reportable Monocytes % Not Reportable Eosinophils % Not Reportable Basophils % Not Reportable Absolute Neutrophils Not Reportable Absolute Lymphocytes Not Reportable Absolute Monocytes Not Reportable Absolute Eosinophils Not Reportable Absolute Basophils Not Reportable Antibody Screen NEGATIVE Impressions: KUB X-Ray 03/06/18 21:00 IMPRESSION: NG tube in stomach. Assessment & Plan - Inpatient Certification Medical Necessity: Need Close Monitoring Due to Risk of Patient Decompensation, Need For IV Fluids - Plan Summary Plan Summary: pod #1 s/p radical cholecystectomy with portal node dissection today doing ok up in chair was ambulating some wheezes and decreased o2 sat to low 90's last pm rx with resp rx will resume home inhalers wbc 22k, likely reactive from surgery, will trend lytes pending\ sl tachy this am with concecentrated urine will give 500cc bolus cont increase activty awaiting return of bowel function
[2018-03-07 07:38] LABS: ANION GAP 9 (5-19); BLOOD UREA NITROGEN 13 mg/dL (7-20); CALCIUM 9.7 mg/dL (8.4-10.2); CARBON DIOXIDE 25 mmol/L (22-30); CHLORIDE 105 mmol/L (98-107); GLUCOSE 148 mg/dL (75-110); POTASSIUM 4.4 mmol/L (3.6-5.0); SODIUM 139.3 mmol/L (137-145)
[2018-03-07 07:58] LABS: ABSOLUTE LYMPHOCYTES# (MANUAL) 0.7 10^3/uL (0.5-4.7); ABSOLUTE MONOCYTES # (MANUAL) 1.3 10^3/uL (0.1-1.4); ABSOLUTE NEUTROPHILS# (MANUAL) 20.2 10^3/uL (1.7-8.2); BASOPHILS % (MANUAL) 0 % (0-2); EOSINOPHILS % (MANUAL) 0 % (0-6); LYMPHOCYTES % (MANUAL) 3 % (13-45); MONOCYTES % (MANUAL) 6 % (3-13); OVALOCYTES SLIGHT; PLATELET COMMENT ADEQUATE; POIKILOCYTOSIS SLIGHT; SEGMENTED NEUTROPHILS % (MAN) 91 % (42-78); TOTAL CELLS COUNTED 100; TOXIC GRANULATION SLIGHT; TOXIC VACUOLATION PRESENT
--- NOTE | 2018-03-07 08:40 | PDOC CONSULTATION ---
Consultation Consult Date: 03/07/18 Attending physician:: MARLENI DESHPANDE Consult reason:: Newly noted gallbladder adenocarcinoma History of Present Illness Admission Date/PCP: 03/06/18 06:35 JASWANT EDWARDS MD Patient complains of: Concern of right upper quadrant pain, status post surgery History of Present Illness: CARMEN RUSSO is a 63 year old female with recently noted cholangiocarcinoma, she came in with a few day history of right upper quadrant pain, she does have s tiffany family history of cholelithiasis so felt it was gallbladder stones, she had a right upper quadrant sono that seem to indicate this, she was then taken for cholecystectomy. During the procedure, she was noted to have a mass on the gallbladder, and there was omental caking around the gallbladder and adjacent to the gallbladder there was a nodule. She had a biopsy of the mass on the gallbladder as well as the nodule, and this came back adenocarcinoma with mucinous features. There was some concern because of the immunohistochemical staining this may be from a lower GI source rather than an upper GI source. She was taken for an appropriate gallbladder cancer resection, where she had a r adical cholecystectomy, resection of appropriate areas of the liver, periportal lymphadenectomy. She is doing well currently, she does have an NG tube placed, but she does feel gas moving in her belly, she has not passed gas yet. Past Medical History Cardiac Medical History: Reports: Hypertension - ON MEDS Denies: Coronary Artery Disease, Myocardial Infarction Pulmonary Medical History: Reports: Asthma, Bronchitis - HX OF , Chronic Obstructive Pulmonary Disease (COPD) - INHALER, NEBULIZER, Pneumonia - 08/21 Neurological Medical History: Reports: Seizures - A CHILD X 1, NO MEDS Endocrine Medical History: Reports: Diabetes Mellitus Type 2 - borderline Malignancy Medical History: Reports: Other - Gallbladder cancer Musculoskeltal Medical History: Denies: Arthritis Hematology: Denies: Anemia Past Surgical History Past Surgical History: Reports: Orthopedic Surgery - left foot/ titanium plates placed, Tonsillectomy, Other - Radical cholecystectomy, liver resection, periportal lymphadenectomy Denies: Hysterectomy Social History Smoking Status: Former Smoker Cigarettes Packs Per Day: 1 Number of Years Smokin Frequency of Alcohol Use: None Drugs: None Hx Prescription Drug Abuse: No - Advance Directive Resuscitation Status: Full Code Family History Family History: Reviewed & Not Pertinent Parental Family History Reviewed: Yes Children Family History Reviewed: Yes Sibling(s) Family History Reviewed.: Yes Medication/Allergy Home Medications: Albuterol Sulfate [Albuterol Sulfate 2.5mg/3 mL] 2.5 mg IH Q6HP PRN 01/14/12 Amlodipine Besylate [Norvasc 5 mg Tablet] 5 mg PO DAILY 01/14/12 Budesonide/Formoterol Fumarate [Symbicort HFA 160-4.5 mcg Inhaler 6 gm] 2 puff IH Q12 01/14/12 Irbesartan/Hydrochlorothiazide [Avalide 300-12.5 Mg Tablet] 1 each PO DAILY 01/14/12 Fenofibric Acid (Choline) [Fenofibric Acid] 135 mg PO WSUPPER 03/06/18 Hydrocodone Bit/Acetaminophen [Hydrocodon-Acetaminophn 10-325] 1 each PO Q6HP PRN MDD FILLED 03/01 FOR 7 DAYS 03/06/18 Metformin HCl [Metformin HCl ER] 500 mg PO BIDBS 03/06/18 Tiotropium [place] [Spiriva Respimat] 2 puff IH DAILY 03/06/18 Allergies/Adverse Reactions: Penicillins Adverse Reaction (Severe, Verified 03/06/18 07:20) WHEEZE Review of Systems Constitutional: PRESENT: anorexia, weakness Cardiovascular: ABSENT: chest pain, dyspnea on exertion, edema, orthropnea, palpitations Gastrointestinal: PRESENT: abdominal pain Neurological: ABSENT: abnormal gait, abnormal speech, confusion, dizziness, focal weakness, syncope Endocrine: ABSENT: cold intolerance, heat intolerance, polydipsia, polyuria Physical Exam Vital Signs: Temp Pulse Resp BP Pulse Ox 98.4 F 112 H 16 123/71 93 03/07/18 08:14 03/07/18 08:14 03/07/18 08:14 03/07/18 08:14 03/07/18 08:14 Intake & Output 03/06/18 03/07/18 03/08/18 06:59 06:59 06:59 Intake Total 0 5000 Output Total 2565 Balance 0 2435 Weight 81.65 kg 84.7 kg General appearance: PRESENT: mild distress Head exam: PRESENT: atraumatic, normocephalic Eye exam: PRESENT: conjunctiva pink, EOMI, PERRLA. ABSENT: scleral icterus Mouth exam: PRESENT: moist, tongue midline Respiratory exam: PRESENT: clear to auscultation christian. ABSENT: rales, rhonchi, wheezes Cardiovascular exam: PRESENT: RRR. ABSENT: diastolic murmur, rubs, systolic murmur GI/Abdominal exam: PRESENT: tenderness Rectal exam: PRESENT: deferred Neurological exam: PRESENT: alert, awake, oriented to person, oriented to place, oriented to time, oriented to situation, CN II-XII grossly intact. ABSENT: motor sensory deficit Results Laboratory Results: 03/07/18 06:37 03/07/18 06:37 03/07/18 03/07/18 06:37 06:37 WBC 22.2 H RBC 4.67 Hgb 13.5 Hct 40.1 MCV 86 MCH 28.8 MCHC 33.6 RDW 14.3 H Plt Count 407 Seg Neutrophils % Not Reportable Lymphocytes % Not Reportable Monocytes % Not Reportable Eosinophils % Not Reportable Basophils % Not Reportable Absolute Neutrophils Not Reportable Absolute Lymphocytes Not Reportable Absolute Monocytes Not Reportable Absolute Eosinophils Not Reportable Absolute Basophils Not Reportable Sodium 139.3 Potassium 4.4 Chloride 105 Carbon Dioxide 25 Anion Gap 9 BUN 13 Creatinine 0.56 Est GFR ( Amer) > 60 Est GFR (Non-Af Amer) > 60 Glucose 148 H Calcium 9.7 Impressions: KUB X-Ray 03/06/18 21:00 IMPRESSION: NG tube in stomach. Status: Image reviewed by me Assessment & Plan - Diagnosis (1) Gallbladder cancer Is this a current diagnosis for this admission?: Yes Plan: Today we had a long discussion about next steps of care, patient had an appropriate cancer resection, we discussed that today. I discussed her case with Dr. Yeung, there does appear to be local extension to the omentum because of the adhesions that developed. Hopefully this will be all local when we see pathology. Ultimately she will require at least adjuvant chemotherapy but possibly adjuvant chemoradiation. We will see her while she is admitted here, and see her back as an outpatient as well. - Time Time Spent: Greater than 70 Minutes - Inpatient Certification Based on my medical assessment, after consideration of the patient's comorbidities, presenting symptoms, or acuity I expect that the services needed warrant INPATIENT care.: Yes I certify that my determination is in accordance with my understanding of Medicare's requirements for reasonable and necessary INPATIENT services [42 CFR 412.3e].: Yes Medical Necessity: Need For IV Fluids, Need for Pain Control, Risk of Complication if Not Cared For in Hospital
[2018-03-07] MEDS: METOCLOPRAMIDE HCL INJ/PF 10 MG/2 ML SDV IV SCH ×4 (08:58→21:03)
[2018-03-07] MEDS: KETOROLAC TROMETHAMINE INJ/PF 30 MG/1 ML SDV IV SCH ×2 (08:58→18:28)
[2018-03-07] MEDS ORDERED: RINGERS SOLUTION,LACTATED 500 ML IV ONE (09:00)
[2018-03-07] MEDS: FAMOTIDINE INJ/PF 20 MG/2 ML SDV IV SCH ×2 (12:12→21:04)
[2018-03-07] MEDS: BUDESONIDE/FORMOTEROL 160-4.5 MCG 60 PUFF/6 GM MDI IH SCH ×2 (12:15→21:05)
[2018-03-07] MEDS: TIOTROPIUM BROMIDE DPI 5 CAP/KIT (18 MCG/CAP) IH SCH (12:15)
[2018-03-07] MEDS: ALBUTEROL SULFATE 0.083% NEB 2.5 MG/3 ML AMPUL NEB SCH ×2 (13:39→20:27)
[2018-03-07] MEDS: MORPHINE SULFATE 60 MG/60 ML RTUINJ IV PRN (16:48)
[2018-03-08] MEDS: ALBUTEROL SULFATE 0.083% NEB 2.5 MG/3 ML AMPUL NEB SCH ×4 (02:22→20:40)
[2018-03-08] MEDS: KETOROLAC TROMETHAMINE INJ/PF 30 MG/1 ML SDV IV SCH ×3 (05:04→17:24)
[2018-03-08] MEDS: CEFAZOLIN 1 GM/D5W RTU 1 GM/50 ML RTUPB IV SCH ×3 (05:24→22:42)
[2018-03-08] MEDS: METRONIDAZOLE 500 MG/NS RTU 500 MG/100 ML RTUPB IV SCH ×3 (05:24→22:43)
[2018-03-08] MEDS: INSULIN REG, HUMAN 100 UNIT/ML 3 ML VIAL (PYX) SUBCUT SCH ×4 (06:26→17:22)
[2018-03-08 07:08] LABS: ANION GAP 9 (5-19); BLOOD UREA NITROGEN 15 mg/dL (7-20); CARBON DIOXIDE 27 mmol/L (22-30); CHLORIDE 102 mmol/L (98-107); GLUCOSE 129 mg/dL (75-110); POTASSIUM 4.3 mmol/L (3.6-5.0); SODIUM 137.7 mmol/L (137-145)
[2018-03-08] MEDS ORDERED: DEXTROSE 40% GEL 15 GM TUBE NG PRN ×2 (09:30)
[2018-03-08] MEDS ORDERED: NORMAL SALINE 500 ML IV ONE (10:00)
[2018-03-08] MEDS: METOCLOPRAMIDE HCL INJ/PF 10 MG/2 ML SDV IV SCH ×4 (10:26→22:43)
[2018-03-08] MEDS: FAMOTIDINE INJ/PF 20 MG/2 ML SDV IV SCH ×2 (10:27→22:43)
[2018-03-08] MEDS: TIOTROPIUM BROMIDE DPI 5 CAP/KIT (18 MCG/CAP) IH SCH (10:28)
[2018-03-08] MEDS: BUDESONIDE/FORMOTEROL 160-4.5 MCG 60 PUFF/6 GM MDI IH SCH ×2 (10:28→22:50)
[2018-03-08 10:31] LABS: ANION GAP 8 (5-19); BLOOD UREA NITROGEN 16 mg/dL (7-20); CALCIUM 9.1 mg/dL (8.4-10.2); CARBON DIOXIDE 28 mmol/L (22-30); CHLORIDE 101 mmol/L (98-107); GLUCOSE 135 mg/dL (75-110); POTASSIUM 4.4 mmol/L (3.6-5.0); SODIUM 136.9 mmol/L (137-145)
[2018-03-08 10:32] LABS: HEMATOCRIT 34.7 % (36.0-47.0); HEMOGLOBIN 11.5 g/dL (12.0-15.5); MEAN CORPUSCULAR HEMOGLOBIN 28.6 pg (27.0-33.4); MEAN CORPUSCULAR HGB CONC 33.3 g/dL (32.0-36.0); MEAN CORPUSCULAR VOLUME 86 fl (80-97); PLATELET COUNT 317 10^3/uL (150-450); RED BLOOD COUNT 4.04 10^6/uL (3.72-5.28); RED CELL DISTRIBUTION WIDTH 14.3 % (11.5-14.0); WHITE BLOOD COUNT 21.1 10^3/uL (4.0-10.5)
[2018-03-08 10:36] LABS: ALANINE AMINOTRANSFERASE 465 U/L (9-52); ALBUMIN 2.9 g/dL (3.5-5.0); ALKALINE PHOSPHATASE 114 U/L (38-126); ASPARTATE AMINO TRANSFERASE 241 U/L (14-36); BILIRUBIN,DIRECT 0.9 mg/dL (0.0-0.4); BILIRUBIN,TOTAL 1.6 mg/dL (0.2-1.3)
[2018-03-08 11:36] LABS: ABSOLUTE LYMPHOCYTES# (MANUAL) 0.8 10^3/uL (0.5-4.7); ABSOLUTE MONOCYTES # (MANUAL) 0.6 10^3/uL (0.1-1.4); ABSOLUTE NEUTROPHILS# (MANUAL) 19.6 10^3/uL (1.7-8.2); BAND NEUTROPHILS % (MANUAL) 1 % (3-5); BASOPHILS % (MANUAL) 0 % (0-2); EOSINOPHILS % (MANUAL) 0 % (0-6); LYMPHOCYTES % (MANUAL) 4 % (13-45); MONOCYTES % (MANUAL) 3 % (3-13); PLATELET COMMENT ADEQUATE; POLYCHROMASIA SLIGHT; SEGMENTED NEUTROPHILS % (MAN) 92 % (42-78); TOTAL CELLS COUNTED 100; TOXIC GRANULATION SLIGHT
[2018-03-08] MEDS: DEXTROSE 5%-LACTATED RINGERS 1,000 ML IV PRN ×2 (16:20→22:45)
[2018-03-08] MEDS: MORPHINE SULFATE 60 MG/60 ML RTUINJ IV PRN (22:57)
[2018-03-09] MEDS: ALBUTEROL SULFATE 0.083% NEB 2.5 MG/3 ML AMPUL NEB SCH ×4 (01:58→21:25)
[2018-03-09] MEDS: INSULIN REG, HUMAN 100 UNIT/ML 3 ML VIAL (PYX) SUBCUT SCH ×5 (04:38→23:16)
[2018-03-09] MEDS: KETOROLAC TROMETHAMINE INJ/PF 30 MG/1 ML SDV IV SCH ×3 (05:42→17:32)
[2018-03-09] MEDS: CEFAZOLIN 1 GM/D5W RTU 1 GM/50 ML RTUPB IV SCH ×3 (05:42→22:11)
[2018-03-09] MEDS: METRONIDAZOLE 500 MG/NS RTU 500 MG/100 ML RTUPB IV SCH ×3 (05:43→22:11)
[2018-03-09] MEDS: METOCLOPRAMIDE HCL INJ/PF 10 MG/2 ML SDV IV SCH ×4 (08:31→22:11)
--- NOTE | 2018-03-09 08:44 | PDOC PROGRESS REPORT ---
Subjective Progress Note for:: 03/09/18 Subjective:: Patient sitting on side of bed, getting ready to get up to chair. Reports pain somewhat controlled. Gas pains, but no flatus. Reason For Visit: GALLBLADDER CANCER Physical Exam Vital Signs: Temp Pulse Resp BP Pulse Ox 98.8 F 110 H 18 128/80 H 92 03/08/18 19:50 03/09/18 01:58 03/09/18 07:18 03/08/18 19:50 03/09/18 07:18 Intake & Output 03/08/18 03/09/18 03/10/18 06:59 06:59 06:59 Intake Total 3770 3122 Output Total 1120 220 40 Balance 2650 2902 -40 Weight 92.5 kg 92.5 kg General appearance: PRESENT: obese Head exam: PRESENT: normocephalic Extremities exam: PRESENT: other - SCDs in place. Neurological exam: PRESENT: alert, awake Psychiatric exam: PRESENT: appropriate affect Skin exam: PRESENT: normal color Results Laboratory Results: 03/08/18 09:46 03/08/18 09:46 03/08/18 03/08/18 03/08/18 09:46 09:46 09:46 WBC 21.1 H RBC 4.04 Hgb 11.5 L Hct 34.7 L MCV 86 MCH 28.6 MCHC 33.3 RDW 14.3 H Plt Count 317 Seg Neutrophils % Not Reportable Lymphocytes % Not Reportable Monocytes % Not Reportable Eosinophils % Not Reportable Basophils % Not Reportable Absolute Neutrophils Not Reportable Absolute Lymphocytes Not Reportable Absolute Monocytes Not Reportable Absolute Eosinophils Not Reportable Absolute Basophils Not Reportable Sodium 136.9 L Potassium 4.4 Chloride 101 Carbon Dioxide 28 Anion Gap 8 BUN 16 Creatinine 0.60 Est GFR ( Amer) > 60 Est GFR (Non-Af Amer) > 60 Glucose 135 H Calcium 9.1 Total Bilirubin 1.6 H AST 241 H ALT 465 H Alkaline Phosphatase 114 Total Protein 5.0 L Albumin 2.9 L Impressions: KUB X-Ray 03/06/18 21:00 IMPRESSION: NG tube in stomach. Assessment & Plan - Diagnosis (1) Gallbladder cancer Is this a current diagnosis for this admission?: Yes Plan: Recovering from surgery. Adjust pain control as needed. Trying to ambulate. Advance diet once passing gas. Will follow-up with further recommendations as outpatient. Please call if needed.
[2018-03-09] MEDS: BUDESONIDE/FORMOTEROL 160-4.5 MCG 60 PUFF/6 GM MDI IH SCH ×2 (09:21→22:11)
[2018-03-09] MEDS: FAMOTIDINE INJ/PF 20 MG/2 ML SDV IV SCH ×2 (09:21→22:11)
[2018-03-09] MEDS: TIOTROPIUM BROMIDE DPI 5 CAP/KIT (18 MCG/CAP) IH SCH (09:27)
[2018-03-09] MEDS ORDERED: BISACODYL 10 MG SUPP.RECT PR ONE (10:05)
--- NOTE | 2018-03-09 10:05 | PDOC PROGRESS REPORT ---
Subjective Progress Note for:: 03/09/18 Reason For Visit: GALLBLADDER CANCER Physical Exam Vital Signs: Temp Pulse Resp BP Pulse Ox 97.6 F 96 16 115/72 97 03/09/18 09:09 03/09/18 09:09 03/09/18 09:09 03/09/18 09:09 03/09/18 09:09 Intake & Output 03/08/18 03/09/18 03/10/18 06:59 06:59 06:59 Intake Total 3770 3122 Output Total 1120 220 40 Balance 2650 2902 -40 Weight 92.5 kg 92.5 kg General appearance: PRESENT: no acute distress, well-developed, well-nourished Head exam: PRESENT: atraumatic, normocephalic Eye exam: PRESENT: conjunctiva pink, EOMI, PERRLA. ABSENT: scleral icterus Ear exam: PRESENT: normal external ear exam Mouth exam: PRESENT: moist, tongue midline Neck exam: ABSENT: carotid bruit, JVD, lymphadenopathy, thyromegaly Respiratory exam: PRESENT: clear to auscultation christian. ABSENT: rales, rhonchi, wheezes Cardiovascular exam: PRESENT: RRR. ABSENT: diastolic murmur, rubs, systolic murmur Pulses: PRESENT: normal dorsalis pedis pul Vascular exam: PRESENT: normal capillary refill GI/Abdominal exam: PRESENT: hypoactive bowel sounds, normal bowel sounds, soft, other - abd soft debby serous incsion clean dry dresing removed. ABSENT: distended, guarding, mass, organolmegaly, rebound, tenderness Rectal exam: PRESENT: deferred Extremities exam: PRESENT: full ROM. ABSENT: calf tenderness, clubbing, pedal edema Neurological exam: PRESENT: alert, awake, oriented to person, oriented to place, oriented to time, oriented to situation, CN II-XII grossly intact. ABSENT: motor sensory deficit Psychiatric exam: PRESENT: appropriate affect, normal mood. ABSENT: homicidal ideation, suicidal ideation Skin exam: PRESENT: dry, intact, warm. ABSENT: cyanosis, rash Results Laboratory Results: 03/08/18 09:46 03/08/18 09:46 03/08/18 03/08/18 03/08/18 09:46 09:46 09:46 WBC 21.1 H RBC 4.04 Hgb 11.5 L Hct 34.7 L MCV 86 MCH 28.6 MCHC 33.3 RDW 14.3 H Plt Count 317 Seg Neutrophils % Not Reportable Lymphocytes % Not Reportable Monocytes % Not Reportable Eosinophils % Not Reportable Basophils % Not Reportable Absolute Neutrophils Not Reportable Absolute Lymphocytes Not Reportable Absolute Monocytes Not Reportable Absolute Eosinophils Not Reportable Absolute Basophils Not Reportable Sodium 136.9 L Potassium 4.4 Chloride 101 Carbon Dioxide 28 Anion Gap 8 BUN 16 Creatinine 0.60 Est GFR ( Amer) > 60 Est GFR (Non-Af Amer) > 60 Glucose 135 H Calcium 9.1 Total Bilirubin 1.6 H AST 241 H ALT 465 H Alkaline Phosphatase 114 Total Protein 5.0 L Albumin 2.9 L Impressions: KUB X-Ray 03/06/18 21:00 IMPRESSION: NG tube in stomach. Assessment & Plan - Plan Summary Plan Summary: doing ok some abd cramping yers this am better will try dlcolax inrease activity check labs
[2018-03-09 11:23] LABS: HEMOGLOBIN 10.9 g/dL (12.0-15.5); MEAN CORPUSCULAR HEMOGLOBIN 28.5 pg (27.0-33.4); MEAN CORPUSCULAR VOLUME 86 fl (80-97); PLATELET COUNT 293 10^3/uL (150-450); RED BLOOD COUNT 3.83 10^6/uL (3.72-5.28); RED CELL DISTRIBUTION WIDTH 13.9 % (11.5-14.0); WHITE BLOOD COUNT 15.5 10^3/uL (4.0-10.5)
[2018-03-09 11:47] LABS: ALANINE AMINOTRANSFERASE 263 U/L (9-52); ALBUMIN 2.7 g/dL (3.5-5.0); ALKALINE PHOSPHATASE 114 U/L (38-126); ANION GAP 5 (5-19); ASPARTATE AMINO TRANSFERASE 116 U/L (14-36); BILIRUBIN,DIRECT 0.8 mg/dL (0.0-0.4); BILIRUBIN,TOTAL 1.4 mg/dL (0.2-1.3); BLOOD UREA NITROGEN 14 mg/dL (7-20); CALCIUM 8.7 mg/dL (8.4-10.2); CARBON DIOXIDE 28 mmol/L (22-30); CHLORIDE 101 mmol/L (98-107); GLUCOSE 109 mg/dL (75-110); SODIUM 134.2 mmol/L (137-145); TOTAL PROTEIN 4.9 g/dL (6.3-8.2)
[2018-03-09 11:50] LABS: POTASSIUM 3.7 mmol/L (3.6-5.0)
[2018-03-09] MEDS: DEXTROSE 5%-LACTATED RINGERS 1,000 ML IV PRN (16:24)
[2018-03-09] MEDS: MORPHINE SULFATE 60 MG/60 ML RTUINJ IV PRN (17:38)
[2018-03-10] MEDS: KETOROLAC TROMETHAMINE INJ/PF 30 MG/1 ML SDV IV SCH ×3 (01:50→17:40)
[2018-03-10] MEDS: ALBUTEROL SULFATE 0.083% NEB 2.5 MG/3 ML AMPUL NEB SCH ×4 (02:26→20:48)
[2018-03-10] MEDS: METRONIDAZOLE 500 MG/NS RTU 500 MG/100 ML RTUPB IV SCH ×3 (05:58→22:19)
[2018-03-10] MEDS: CEFAZOLIN 1 GM/D5W RTU 1 GM/50 ML RTUPB IV SCH ×3 (05:58→21:26)
[2018-03-10 06:02] LABS: ABSOLUTE EOSINOPHILS # (AUTO) 0.6 10^3/uL (0.0-0.6); ABSOLUTE LYMPHOCYTES (AUTO) 1.2 10^3/uL (0.5-4.7); ABSOLUTE NEUT (AUTO) 11.1 10^3/uL (1.7-8.2); BASOPHILS % (AUTO) 0.3 % (0-2); EOSINOPHILS % (AUTO) 4.2 % (0-6); HEMATOCRIT 31.1 % (36.0-47.0); HEMOGLOBIN 10.4 g/dL (12.0-15.5); LYMPHOCYTES % (AUTO) 8.3 % (13-45); MEAN CORPUSCULAR HEMOGLOBIN 28.4 pg (27.0-33.4); MEAN CORPUSCULAR HGB CONC 33.4 g/dL (32.0-36.0); MEAN CORPUSCULAR VOLUME 85 fl (80-97); MONOCYTES % (AUTO) 7.5 % (3-13); PLATELET COUNT 297 10^3/uL (150-450); RED BLOOD COUNT 3.65 10^6/uL (3.72-5.28); RED CELL DISTRIBUTION WIDTH 13.9 % (11.5-14.0); SEGMENTED NEUTROPHILS % (AUTO) 79.7 % (42-78); TOTAL CELLS COUNTED % (AUTO) 100 %; WHITE BLOOD COUNT 13.9 10^3/uL (4.0-10.5)
[2018-03-10 06:20] LABS: ALANINE AMINOTRANSFERASE 154 U/L (9-52); ALBUMIN 2.4 g/dL (3.5-5.0); ALKALINE PHOSPHATASE 107 U/L (38-126); ANION GAP 5 (5-19); ASPARTATE AMINO TRANSFERASE 63 U/L (14-36); BILIRUBIN,DIRECT 0.7 mg/dL (0.0-0.4); BILIRUBIN,TOTAL 1.2 mg/dL (0.2-1.3); BLOOD UREA NITROGEN 12 mg/dL (7-20); CALCIUM 8.4 mg/dL (8.4-10.2); CARBON DIOXIDE 26 mmol/L (22-30); CHLORIDE 103 mmol/L (98-107); GLUCOSE 113 mg/dL (75-110); POTASSIUM 3.5 mmol/L (3.6-5.0); SODIUM 133.6 mmol/L (137-145); TOTAL PROTEIN 4.5 g/dL (6.3-8.2)
[2018-03-10] MEDS: INSULIN REG, HUMAN 100 UNIT/ML 3 ML VIAL (PYX) SUBCUT SCH ×3 (06:36→17:36)
[2018-03-10] MEDS: METOCLOPRAMIDE HCL INJ/PF 10 MG/2 ML SDV IV SCH ×3 (08:13→17:39)
--- NOTE | 2018-03-10 08:26 | PDOC PROGRESS REPORT ---
Subjective Progress Note for:: 03/10/18 Reason For Visit: GALLBLADDER CANCER post op radical adela with portal node dissection Physical Exam Vital Signs: Temp Pulse Resp BP Pulse Ox 98.0 F 96 16 117/88 H 95 03/10/18 07:39 03/10/18 07:39 03/10/18 07:39 03/10/18 07:39 03/10/18 07:39 Intake & Output 03/09/18 03/10/18 03/11/18 06:59 06:59 06:59 Intake Total 3122 2230 Output Total 220 520 Balance 2902 1710 Weight 92.5 kg 96.8 kg General appearance: PRESENT: no acute distress, cooperative Head exam: PRESENT: atraumatic Eye exam: PRESENT: conjunctiva pink Respiratory exam: PRESENT: clear to auscultation christian Cardiovascular exam: PRESENT: RRR GI/Abdominal exam: PRESENT: soft, other - wound clean.debby serous Rectal exam: PRESENT: deferred Musculoskeletal exam: PRESENT: ambulatory Neurological exam: PRESENT: alert, awake, oriented to person, oriented to place, oriented to time, oriented to situation Skin exam: PRESENT: dry Results Laboratory Results: 03/10/18 05:42 03/10/18 05:42 03/09/18 03/09/18 03/10/18 10:58 10:58 05:42 WBC 15.5 H 13.9 H RBC 3.83 3.65 L Hgb 10.9 L 10.4 L Hct 33.0 L 31.1 L MCV 86 85 MCH 28.5 28.4 MCHC 33.0 33.4 RDW 13.9 13.9 Plt Count 293 297 Seg Neutrophils % 79.7 H Lymphocytes % 8.3 L Monocytes % 7.5 Eosinophils % 4.2 Basophils % 0.3 Absolute Neutrophils 11.1 H Absolute Lymphocytes 1.2 Absolute Monocytes 1.0 Absolute Eosinophils 0.6 Absolute Basophils 0.0 Sodium 134.2 L Potassium 3.7 Chloride 101 Carbon Dioxide 28 Anion Gap 5 BUN 14 Creatinine 0.53 Est GFR ( Amer) > 60 Est GFR (Non-Af Amer) > 60 Glucose 109 Calcium 8.7 Total Bilirubin 1.4 H AST 116 H ALT 263 H Alkaline Phosphatase 114 Total Protein 4.9 L Albumin 2.7 L 03/10/18 05:42 WBC RBC Hgb Hct MCV MCH MCHC RDW Plt Count Seg Neutrophils % Lymphocytes % Monocytes % Eosinophils % Basophils % Absolute Neutrophils Absolute Lymphocytes Absolute Monocytes Absolute Eosinophils Absolute Basophils Sodium 133.6 L Potassium 3.5 L Chloride 103 Carbon Dioxide 26 Anion Gap 5 BUN 12 Creatinine 0.48 L Est GFR ( Amer) > 60 Est GFR (Non-Af Amer) > 60 Glucose 113 H Calcium 8.4 Total Bilirubin 1.2 AST 63 H ALT 154 H Alkaline Phosphatase 107 Total Protein 4.5 L Albumin 2.4 L Impressions: KUB X-Ray 03/06/18 21:00 IMPRESSION: NG tube in stomach. Assessment & Plan - Plan Summary Plan Summary: post radical cholecystecomy iwth portal node dissection doing well wbc trending down lf't improved still with slow return of bowel function will cont with reglan start clears
[2018-03-10] MEDS: FAMOTIDINE INJ/PF 20 MG/2 ML SDV IV SCH ×2 (10:16→21:26)
[2018-03-10] MEDS: TIOTROPIUM BROMIDE DPI 5 CAP/KIT (18 MCG/CAP) IH SCH (10:17)
[2018-03-10] MEDS: BUDESONIDE/FORMOTEROL 160-4.5 MCG 60 PUFF/6 GM MDI IH SCH ×2 (10:18→22:19)
--- NOTE | 2018-03-10 10:50 | PDOC PROGRESS REPORT ---
Subjective Progress Note for:: 03/10/18 Subjective:: Patient still having some nausea that comes about, she is trying to take some clear liquids and today. It appears that her bowels are slow to return. I reviewed final pathology, she has a T3 N1 M1 gallbladder cancer, and today had a long discussion with that with the patient and her who is at bedside. Today we spent greater than 40 minutes in discussion. Reason For Visit: GALLBLADDER CANCER Physical Exam Vital Signs: Temp Pulse Resp BP Pulse Ox 98.0 F 96 16 117/88 H 96 03/10/18 07:39 03/10/18 08:58 03/10/18 08:58 03/10/18 07:39 03/10/18 08:58 Intake & Output 03/09/18 03/10/18 03/11/18 06:59 06:59 06:59 Intake Total 3122 2230 Output Total 220 520 Balance 2902 1710 Weight 92.5 kg 96.8 kg General appearance: PRESENT: no acute distress, well-developed, well-nourished Head exam: PRESENT: atraumatic, normocephalic Eye exam: PRESENT: conjunctiva pink, EOMI, PERRLA. ABSENT: scleral icterus Ear exam: PRESENT: normal external ear exam Mouth exam: PRESENT: moist, tongue midline Neck exam: ABSENT: carotid bruit, JVD, lymphadenopathy, thyromegaly Respiratory exam: PRESENT: clear to auscultation christian. ABSENT: rales, rhonchi, wheezes Cardiovascular exam: PRESENT: RRR. ABSENT: diastolic murmur, rubs, systolic m urmur Pulses: PRESENT: normal dorsalis pedis pul Vascular exam: PRESENT: normal capillary refill GI/Abdominal exam: PRESENT: normal bowel sounds, soft. ABSENT: distended, guarding, mass, organolmegaly, rebound, tenderness Rectal exam: PRESENT: deferred Extremities exam: PRESENT: full ROM. ABSENT: calf tenderness, clubbing, pedal edema Neurological exam: PRESENT: alert, awake, oriented to person, oriented to place, oriented to time, oriented to situation, CN II-XII grossly intact. ABSENT: motor sensory deficit Psychiatric exam: PRESENT: appropriate affect, normal mood. ABSENT: homicidal ideation, suicidal ideation Skin exam: PRESENT: dry, intact, warm. ABSENT: cyanosis, rash Results Laboratory Results: 03/10/18 05:42 03/10/18 05:42 03/09/18 03/09/18 03/10/18 10:58 10:58 05:42 WBC 15.5 H 13.9 H RBC 3.83 3.65 L Hgb 10.9 L 10.4 L Hct 33.0 L 31.1 L MCV 86 85 MCH 28.5 28.4 MCHC 33.0 33.4 RDW 13.9 13.9 Plt Count 293 297 Seg Neutrophils % 79.7 H Lymphocytes % 8.3 L Monocytes % 7.5 Eosinophils % 4.2 Basophils % 0.3 Absolute Neutrophils 11.1 H Absolute Lymphocytes 1.2 Absolute Monocytes 1.0 Absolute Eosinophils 0.6 Absolute Basophils 0.0 Sodium 134.2 L Potassium 3.7 Chloride 101 Carbon Dioxide 28 Anion Gap 5 BUN 14 Creatinine 0.53 Est GFR ( Amer) > 60 Est GFR (Non-Af Amer) > 60 Glucose 109 Calcium 8.7 Total Bilirubin 1.4 H AST 116 H ALT 263 H Alkaline Phosphatase 114 Total Protein 4.9 L Albumin 2.7 L 03/10/18 05:42 WBC RBC Hgb Hct MCV MCH MCHC RDW Plt Count Seg Neutrophils % Lymphocytes % Monocytes % Eosinophils % Basophils % Absolute Neutrophils Absolute Lymphocytes Absolute Monocytes Absolute Eosinophils Absolute Basophils Sodium 133.6 L Potassium 3.5 L Chloride 103 Carbon Dioxide 26 Anion Gap 5 BUN 12 Creatinine 0.48 L Est GFR ( Amer) > 60 Est GFR (Non-Af Amer) > 60 Glucose 113 H Calcium 8.4 Total Bilirubin 1.2 AST 63 H ALT 154 H Alkaline Phosphatase 107 Total Protein 4.5 L Albumin 2.4 L Impressions: KUB X-Ray 03/06/18 21:00 IMPRESSION: NG tube in stomach. Assessment & Plan - Diagnosis (1) Gallbladder cancer Is this a current diagnosis for this admission?: Yes Plan: Stage IV, she would benefit from systemic chemotherapy once she is stronger, would pursue systemic chemotherapy first before bringing in the consideration of radiation. Also would restage her once she is an outpatient as well. - Time Time Spent with patient: 35 or more minutes - Inpatient Certification Based on my medical assessment, after consideration of the patient's comorbidities, presenting symptoms, or acuity I expect that the services needed warrant INPATIENT care.: Yes I certify that my determination is in accordance with my understanding of Medicare's requirements for reasonable and necessary INPATIENT services [42 CFR 412.3e].: Yes Medical Necessity: Need For IV Fluids, Risk of Complication if Not Cared For in Hospital
[2018-03-10] MEDS: DEXTROSE 5%-LACTATED RINGERS 1,000 ML IV PRN (11:03)
[2018-03-10] MEDS: MAG HYDROX/AL HYDROX/SIMETH SUSP 30 ML UDCUP PO PRN (12:10)
[2018-03-10] MEDS: MORPHINE SULFATE 60 MG/60 ML RTUINJ IV PRN (14:15)
[2018-03-10] MEDS: ONDANSETRON HCL INJ/PF 4 MG/2 ML SDV IV PRN (17:39)
[2018-03-11] MEDS: ALBUTEROL SULFATE 0.083% NEB 2.5 MG/3 ML AMPUL NEB SCH ×4 (01:54→20:29)
[2018-03-11] MEDS: INSULIN REG, HUMAN 100 UNIT/ML 3 ML VIAL (PYX) SUBCUT SCH ×4 (01:58→18:12)
[2018-03-11] MEDS: METOCLOPRAMIDE HCL INJ/PF 10 MG/2 ML SDV IV SCH ×4 (02:05→18:28)
[2018-03-11] MEDS: KETOROLAC TROMETHAMINE INJ/PF 30 MG/1 ML SDV IV SCH ×3 (02:05→18:29)
[2018-03-11] MEDS: MAG HYDROX/AL HYDROX/SIMETH SUSP 30 ML UDCUP PO PRN (02:24)
[2018-03-11 05:22] LABS: ABSOLUTE EOSINOPHILS # (AUTO) 0.3 10^3/uL (0.0-0.6); ABSOLUTE LYMPHOCYTES (AUTO) 0.9 10^3/uL (0.5-4.7); ABSOLUTE NEUT (AUTO) 8.5 10^3/uL (1.7-8.2); BASOPHILS % (AUTO) 0.4 % (0-2); HEMATOCRIT 31.6 % (36.0-47.0); HEMOGLOBIN 10.8 g/dL (12.0-15.5); LYMPHOCYTES % (AUTO) 8.2 % (13-45); MEAN CORPUSCULAR HGB CONC 34.1 g/dL (32.0-36.0); MEAN CORPUSCULAR VOLUME 85 fl (80-97); MONOCYTES % (AUTO) 9.3 % (3-13); PLATELET COUNT 341 10^3/uL (150-450); RED BLOOD COUNT 3.71 10^6/uL (3.72-5.28); RED CELL DISTRIBUTION WIDTH 13.6 % (11.5-14.0); SEGMENTED NEUTROPHILS % (AUTO) 79.1 % (42-78); TOTAL CELLS COUNTED % (AUTO) 100 %; WHITE BLOOD COUNT 10.7 10^3/uL (4.0-10.5)
[2018-03-11] MEDS: METRONIDAZOLE 500 MG/NS RTU 500 MG/100 ML RTUPB IV SCH ×3 (05:37→21:42)
[2018-03-11 06:02] LABS: ALANINE AMINOTRANSFERASE 115 U/L (9-52); ALBUMIN 2.5 g/dL (3.5-5.0); ALKALINE PHOSPHATASE 123 U/L (38-126); ANION GAP 5 (5-19); ASPARTATE AMINO TRANSFERASE 46 U/L (14-36); BILIRUBIN,DIRECT 0.7 mg/dL (0.0-0.4); BILIRUBIN,TOTAL 1.2 mg/dL (0.2-1.3); BLOOD UREA NITROGEN 11 mg/dL (7-20); CALCIUM 8.6 mg/dL (8.4-10.2); CARBON DIOXIDE 29 mmol/L (22-30); CHLORIDE 98 mmol/L (98-107); GLUCOSE 127 mg/dL (75-110); POTASSIUM 3.9 mmol/L (3.6-5.0); SODIUM 132.3 mmol/L (137-145); TOTAL PROTEIN 4.5 g/dL (6.3-8.2)
[2018-03-11] MEDS: CEFAZOLIN 1 GM/D5W RTU 1 GM/50 ML RTUPB IV SCH ×3 (06:54→21:41)
[2018-03-11] MEDS ORDERED: BISACODYL 10 MG SUPP.RECT PR PRN (09:27)
--- NOTE | 2018-03-11 09:27 | PDOC PROGRESS REPORT ---
Subjective Progress Note for:: 03/11/18 Reason For Visit: GALLBLADDER CANCER Physical Exam Vital Signs: Temp Pulse Resp BP Pulse Ox 98.0 F 110 H 19 119/61 92 03/11/18 07:48 03/11/18 07:48 03/11/18 07:48 03/11/18 07:48 03/11/18 07:48 Intake & Output 03/10/18 03/11/18 03/12/18 06:59 06:59 06:59 Intake Total 3290 1704 Output Total 520 1000 Balance 2770 704 Weight 96.8 kg 98.7 kg General appearance: PRESENT: no acute distress Respiratory exam: PRESENT: clear to auscultation christian Cardiovascular exam: PRESENT: RRR GI/Abdominal exam: PRESENT: other - abd soft, non tender + bs debby with bilious drainage approx 120cc yesterday wound clean dry Results Laboratory Results: 03/11/18 04:49 03/11/18 04:49 03/11/18 03/11/18 04:49 04:49 WBC 10.7 H RBC 3.71 L Hgb 10.8 L Hct 31.6 L MCV 85 MCH 29.0 MCHC 34.1 RDW 13.6 Plt Count 341 Seg Neutrophils % 79.1 H Lymphocytes % 8.2 L Monocytes % 9.3 Eosinophils % 3.0 Basophils % 0.4 Absolute Neutrophils 8.5 H Absolute Lymphocytes 0.9 Absolute Monocytes 1.0 Absolute Eosinophils 0.3 Absolute Basophils 0.0 Sodium 132.3 L Potassium 3.9 Chloride 98 Carbon Dioxide 29 Anion Gap 5 BUN 11 Creatinine 0.52 Est GFR ( Amer) > 60 Est GFR (Non-Af Amer) > 60 Glucose 127 H Calcium 8.6 Total Bilirubin 1.2 AST 46 H ALT 115 H Alkaline Phosphatase 123 Total Protein 4.5 L Albumin 2.5 L Impressions: KUB X-Ray 03/06/18 21:00 IMPRESSION: NG tube in stomach. Assessment & Plan - Plan Summary Plan Summary: doing on on pod4 however still slow return of bowel function no flatus or stool as yet debby with bilous drainage suspect from side of bile duct repair her lft's remain wnl will cont to monitor bile drain op if conts will discuss gi for poss ercp/stent will try dulcolax/enema today may need picc and tpn if now bowel function in next day or two will consider hida scan after discussion with gi.
[2018-03-11] MEDS: FAMOTIDINE INJ/PF 20 MG/2 ML SDV IV SCH ×2 (10:06→21:31)
[2018-03-11] MEDS: BUDESONIDE/FORMOTEROL 160-4.5 MCG 60 PUFF/6 GM MDI IH SCH (10:07)
[2018-03-11] MEDS: TIOTROPIUM BROMIDE DPI 5 CAP/KIT (18 MCG/CAP) IH SCH (10:07)
--- NOTE | 2018-03-11 11:05 | PDOC PROGRESS REPORT ---
Subjective Progress Note for:: 03/11/18 Subjective:: Significant biliary leak noted, patient still not passing gas or bowel movements, but is belching. Reason For Visit: GALLBLADDER CANCER Physical Exam Vital Signs: Temp Pulse Resp BP Pulse Ox 98.0 F 104 H 16 119/61 91 L 03/11/18 07:48 03/11/18 09:16 03/11/18 09:16 03/11/18 07:48 03/11/18 09:16 Intake & Output 03/10/18 03/11/18 03/12/18 06:59 06:59 06:59 Intake Total 3290 1704 Output Total 520 1000 50 Balance 2770 704 -50 Weight 96.8 kg 98.7 kg General appearance: PRESENT: no acute distress, well-developed, well-nourished Head exam: PRESENT: atraumatic, normocephalic Eye exam: PRESENT: conjunctiva pink, EOMI, PERRLA. ABSENT: scleral icterus Ear exam: PRESENT: normal external ear exam Mouth exam: PRESENT: moist, tongue midline Neck exam: ABSENT: carotid bruit, JVD, lymphadenopathy, thyromegaly Respiratory exam: PRESENT: clear to auscultation christian. ABSENT: rales, rhonchi, wheezes Cardiovascular exam: PRESENT: RRR. ABSENT: diastolic murmur, rubs, systolic murmur Pulses: PRESENT: normal dorsalis pedis pul Vascular exam: PRESENT: normal capillary refill GI/Abdominal exam: PRESENT: normal bowel sounds, soft. ABSENT: distended, guarding, mass, organolmegaly, rebound, tenderness Rectal exam: PRESENT: deferred Extremities exam: PRESENT: full ROM. ABSENT: calf tenderness, clubbing, pedal edema Neurological exam: PRESENT: alert, awake, oriented to person, oriented to place, oriented to time, oriented to situation, CN II-XII grossly intact. ABSENT: motor sensory deficit Psychiatric exam: PRESENT: appropriate affect, normal mood. ABSENT: homicidal ideation, suicidal ideation Skin exam: PRESENT: dry, intact, warm. ABSENT: cyanosis, rash Results Laboratory Results: 03/11/18 04:49 03/11/18 04:49 03/11/18 03/11/18 04:49 04:49 WBC 10.7 H RBC 3.71 L Hgb 10.8 L Hct 31.6 L MCV 85 MCH 29.0 MCHC 34.1 RDW 13.6 Plt Count 341 Seg Neutrophils % 79.1 H Lymphocytes % 8.2 L Monocytes % 9.3 Eosinophils % 3.0 Basophils % 0.4 Absolute Neutrophils 8.5 H Absolute Lymphocytes 0.9 Absolute Monocytes 1.0 Absolute Eosinophils 0.3 Absolute Basophils 0.0 Sodium 132.3 L Potassium 3.9 Chloride 98 Carbon Dioxide 29 Anion Gap 5 BUN 11 Creatinine 0.52 Est GFR ( Amer) > 60 Est GFR (Non-Af Amer) > 60 Glucose 127 H Calcium 8.6 Total Bilirubin 1.2 AST 46 H ALT 115 H Alkaline Phosphatase 123 Total Protein 4.5 L Albumin 2.5 L Impressions: KUB X-Ray 03/06/18 21:00 IMPRESSION: NG tube in stomach. Assessment & Plan - Diagnosis (1) Gallbladder cancer Is this a current diagnosis for this admission?: Yes Plan: Be managed by surgery postoperatively, hopefully we can get to some form of chemotherapy as an outpatient we will follow. - Time Time Spent with patient: 25-34 minutes
[2018-03-11] MEDS ORDERED: NA PHOS,M-B/NA PHOS,DI-BA (ADULT) 133 ML ENEMA PR ONE (16:00)
--- NOTE | 2018-03-11 19:27 | RADIOLOGY REPORT (SQ) ---
EXAM DESCRIPTION: KUB/ABDOMEN (SINGLE VIEW) COMPLETED DATE/TIME: 03/11/2018 6:05 pm REASON FOR STUDY: NOT PASSING GAS OR STOOL/ ABDOMINAL PAIN C23 MALIGNANT NEOPLASM OF GALLBLADDER COMPARISON: None. NUMBER OF VIEWS: One view. TECHNIQUE: Supine radiographic image of the abdomen acquired. LIMITATIONS: None. FINDINGS: BOWEL GAS PATTERN: There are mildly dilated small bowel loops throughout the left abdomen. CALCIFICATIONS: No suspicious calcifications. SOFT TISSUES: No gross mass or suggestion of organomegaly. HARDWARE: Surgical clips and drain over the upper abdomen. Previously seen NG tube has been removed. BONES: No acute fracture. No worrisome bone lesions. OTHER: Bibasilar subsegmental atelectasis. IMPRESSION: There are mildly dilated small bowel loops throughout the left abdomen, developing ileus or obstruction possible. TECHNICAL DOCUMENTATION: JOB ID: [id number] [employer]- All Rights Reserved Reading location - IP/workstation name: [email or web address]
[2018-03-12] MEDS: METOCLOPRAMIDE HCL INJ/PF 10 MG/2 ML SDV IV SCH ×4 (02:21→17:06)
[2018-03-12] MEDS: KETOROLAC TROMETHAMINE INJ/PF 30 MG/1 ML SDV IV SCH ×3 (02:22→17:06)
[2018-03-12] MEDS: BUDESONIDE/FORMOTEROL 160-4.5 MCG 60 PUFF/6 GM MDI IH SCH ×3 (02:25→21:47)
[2018-03-12] MEDS: ALBUTEROL SULFATE 0.083% NEB 2.5 MG/3 ML AMPUL NEB SCH ×4 (02:33→20:11)
[2018-03-12 04:47] LABS: ABSOLUTE EOSINOPHILS # (AUTO) 0.3 10^3/uL (0.0-0.6); ABSOLUTE NEUT (AUTO) 6.4 10^3/uL (1.7-8.2); BASOPHILS % (AUTO) 0.3 % (0-2); EOSINOPHILS % (AUTO) 3.4 % (0-6); HEMOGLOBIN 10.7 g/dL (12.0-15.5); LYMPHOCYTES % (AUTO) 11.1 % (13-45); MEAN CORPUSCULAR HGB CONC 34.6 g/dL (32.0-36.0); MEAN CORPUSCULAR VOLUME 84 fl (80-97); MONOCYTES % (AUTO) 11.3 % (3-13); PLATELET COUNT 338 10^3/uL (150-450); RED CELL DISTRIBUTION WIDTH 13.7 % (11.5-14.0); SEGMENTED NEUTROPHILS % (AUTO) 73.9 % (42-78); TOTAL CELLS COUNTED % (AUTO) 100 %; WHITE BLOOD COUNT 8.6 10^3/uL (4.0-10.5)
[2018-03-12 05:10] LABS: ALANINE AMINOTRANSFERASE 60 U/L (9-52); ALBUMIN 2.4 g/dL (3.5-5.0); ALKALINE PHOSPHATASE 135 U/L (38-126); ANION GAP 7 (5-19); ASPARTATE AMINO TRANSFERASE 37 U/L (14-36); BILIRUBIN,DIRECT 0.7 mg/dL (0.0-0.4); BILIRUBIN,TOTAL 0.9 mg/dL (0.2-1.3); BLOOD UREA NITROGEN 11 mg/dL (7-20); CALCIUM 8.3 mg/dL (8.4-10.2); CARBON DIOXIDE 27 mmol/L (22-30); CHLORIDE 97 mmol/L (98-107); GLUCOSE 129 mg/dL (75-110); POTASSIUM 3.3 mmol/L (3.6-5.0); SODIUM 131.4 mmol/L (137-145); TOTAL PROTEIN 4.5 g/dL (6.3-8.2)
[2018-03-12] MEDS: MORPHINE SULFATE 60 MG/60 ML RTUINJ IV PRN (05:18)
[2018-03-12] MEDS: INSULIN REG, HUMAN 100 UNIT/ML 3 ML VIAL (PYX) SUBCUT SCH ×4 (05:44→17:05)
[2018-03-12] MEDS: CEFAZOLIN 1 GM/D5W RTU 1 GM/50 ML RTUPB IV SCH ×3 (05:45→21:44)
[2018-03-12] MEDS: METRONIDAZOLE 500 MG/NS RTU 500 MG/100 ML RTUPB IV SCH ×3 (05:46→21:40)
[2018-03-12] MEDS: DEXTROSE 5%-LACTATED RINGERS 1,000 ML IV PRN (06:05)
[2018-03-12] MEDS: TIOTROPIUM BROMIDE DPI 5 CAP/KIT (18 MCG/CAP) IH SCH (06:05)
--- NOTE | 2018-03-12 07:58 | PDOC PROGRESS REPORT ---
Subjective Progress Note for:: 03/12/18 Reason For Visit: GALLBLADDER CANCER Physical Exam Vital Signs: Temp Pulse Resp BP Pulse Ox 98.5 F 109 H 16 138/63 H 96 03/12/18 00:00 03/12/18 02:35 03/12/18 07:00 03/12/18 00:00 03/12/18 07:00 Intake & Output 03/11/18 03/12/18 03/13/18 06:59 06:59 06:59 Intake Total 2764 1068 100 Output Total 1000 560 Balance 1764 508 100 Weight 98.7 kg 92.9 kg General appearance: PRESENT: no acute distress Head exam: PRESENT: atraumatic Eye exam: PRESENT: EOMI Respiratory exam: PRESENT: clear to auscultation christian GI/Abdominal exam: PRESENT: soft - min tenderness epigastrium bile stained gauze at drain site Results Laboratory Results: 03/12/18 04:38 03/12/18 04:38 03/12/18 03/12/18 04:38 04:38 WBC 8.6 RBC 3.70 L Hgb 10.7 L Hct 31.0 L MCV 84 MCH 29.0 MCHC 34.6 RDW 13.7 Plt Count 338 Seg Neutrophils % 73.9 Lymphocytes % 11.1 L Monocytes % 11.3 Eosinophils % 3.4 Basophils % 0.3 Absolute Neutrophils 6.4 Absolute Lymphocytes 1.0 Absolute Monocytes 1.0 Absolute Eosinophils 0.3 Absolute Basophils 0.0 Sodium 131.4 L Potassium 3.3 L Chloride 97 L Carbon Dioxide 27 Anion Gap 7 BUN 11 Creatinine 0.47 L Est GFR ( Amer) > 60 Est GFR (Non-Af Amer) > 60 Glucose 129 H Calcium 8.3 L Total Bilirubin 0.9 AST 37 H ALT 60 H Alkaline Phosphatase 135 H Total Protein 4.5 L Albumin 2.4 L Impressions: KUB X-Ray 03/11/18 00:00 IMPRESSION: There are mildly dilated small bowel loops throughout the left abdomen, developing ileus or obstruction possible. Assessment & Plan - Plan Summary Plan Summary: pt now passing flatus and bm x2 wbc normalized lft's ok still with bile leak will obtain hida scan today will contact gi for poss stent after review of hida start clear liqluids this am
--- NOTE | 2018-03-12 08:19 | PDOC PROGRESS REPORT ---
Subjective Progress Note for:: 03/12/18 Subjective:: Pt had BM and passed gas yesterday, today had long discussion w/ pt and Dr. Michaud about next steps of care Reason For Visit: GALLBLADDER CANCER Physical Exam Vital Signs: Temp Pulse Resp BP Pulse Ox 98.5 F 109 H 16 138/63 H 96 03/12/18 00:00 03/12/18 02:35 03/12/18 07:00 03/12/18 00:00 03/12/18 07:00 Intake & Output 03/11/18 03/12/18 03/13/18 06:59 06:59 06:59 Intake Total 2764 1068 100 Output Total 1000 560 Balance 1764 508 100 Weight 98.7 kg 92.9 kg General appearance: PRESENT: no acute distress, well-developed, well-nourished Head exam: PRESENT: atraumatic, normocephalic Eye exam: PRESENT: conjunctiva pink, EOMI, PERRLA. ABSENT: scleral icterus Ear exam: PRESENT: normal external ear exam Mouth exam: PRESENT: moist, tongue midline Neck exam: ABSENT: carotid bruit, JVD, lymphadenopathy, thyromegaly Respiratory exam: PRESENT: clear to auscultation christian. ABSENT: rales, rhonchi, wheezes Cardiovascular exam: PRESENT: RRR. ABSENT: diastolic murmur, rubs, systolic murmur Pulses: PRESENT: normal dorsalis pedis pul Vascular exam: PRESENT: normal capillary refill GI/Abdominal exam: PRESENT: normal bowel sounds, soft. ABSENT: distended, gua rding, mass, organolmegaly, rebound, tenderness Rectal exam: PRESENT: deferred Extremities exam: PRESENT: full ROM. ABSENT: calf tenderness, clubbing, pedal edema Neurological exam: PRESENT: alert, awake, oriented to person, oriented to place, oriented to time, oriented to situation, CN II-XII grossly intact. ABSENT: harjinder r sensory deficit Psychiatric exam: PRESENT: appropriate affect, normal mood. ABSENT: homicidal ideation, suicidal ideation Skin exam: PRESENT: dry, intact, warm. ABSENT: cyanosis, rash Results Laboratory Results: 03/12/18 04:38 03/12/18 04:38 03/12/18 03/12/18 04:38 04:38 WBC 8.6 RBC 3.70 L Hgb 10.7 L Hct 31.0 L MCV 84 MCH 29.0 MCHC 34.6 RDW 13.7 Plt Count 338 Seg Neutrophils % 73.9 Lymphocytes % 11.1 L Monocytes % 11.3 Eosinophils % 3.4 Basophils % 0.3 Absolute Neutrophils 6.4 Absolute Lymphocytes 1.0 Absolute Monocytes 1.0 Absolute Eosinophils 0.3 Absolute Basophils 0.0 Sodium 131.4 L Potassium 3.3 L Chloride 97 L Carbon Dioxide 27 Anion Gap 7 BUN 11 Creatinine 0.47 L Est GFR ( Amer) > 60 Est GFR (Non-Af Amer) > 60 Glucose 129 H Calcium 8.3 L Total Bilirubin 0.9 AST 37 H ALT 60 H Alkaline Phosphatase 135 H Total Protein 4.5 L Albumin 2.4 L Impressions: KUB X-Ray 03/11/18 00:00 IMPRESSION: There are mildly dilated small bowel loops throughout the left abdomen, developing ileus or obstruction possible. Assessment & Plan - Diagnosis (1) Gallbladder cancer Is this a current diagnosis for this admission?: Yes Plan: Further chemo as outpt planned, would like port placed when Dr. Michaud feels comfortable - Time Time Spent with patient: 35 or more minutes - Inpatient Certification Based on my medical assessment, after consideration of the patient's comorbidities, presenting symptoms, or acuity I expect that the services needed warrant INPATIENT care.: Yes I certify that my determination is in accordance with my understanding of Medicare's requirements for reasonable and necessary INPATIENT services [42 CFR 412.3e].: Yes Medical Necessity: Need For IV Fluids, Need for Pain Control, Risk of Complication if Not Cared For in Hospital
[2018-03-12] MEDS: FAMOTIDINE INJ/PF 20 MG/2 ML SDV IV SCH ×2 (09:27→21:44)
--- NOTE | 2018-03-12 14:00 | RADIOLOGY REPORT (SQ) ---
EXAM DESCRIPTION: NM HIDA SCAN COMPLETED DATE/TIME: 03/12/2018 1:50 pm REASON FOR STUDY: r/o bile leak C23 MALIGNANT NEOPLASM OF GALLBLADDER COMPARISON: None. RADIONUCLIDE AND DOSE: DOSAGE RADIONUCLIDE: 5.0 millicuries Tc99m Mebrofenin. DOSAGE MORPHINE: Not required. The route of agent administration: Intravenous TECHNIQUE: Serial imaging right upper quadrant up to 60 minutes following injection of radionuclide. Patient imaged AP and Right Lateral. LIMITATIONS: None. FINDINGS: LIVER: Normal visualization without areas of photopenia. INTRA-HEPATIC BILE DUCTS: Temporal visualization normal. No dilatation. COMMON BILE DUCT: Normal without dilatation or delayed visualization. GALLBLADDER: Uptake of radiopharmaceutical in the gallbladder fossa status post cholecystectomy. OTHER: No other significant finding. IMPRESSION: Bile leak in the gallbladder fossa. TECHNICAL DOCUMENTATION: JOB ID: [id number] [employer]- All Rights Reserved Reading location - IP/workstation name: [email or web address]
[2018-03-13] MEDS: INSULIN REG, HUMAN 100 UNIT/ML 3 ML VIAL (PYX) SUBCUT SCH ×5 (00:06→23:17)
[2018-03-13] MEDS: KETOROLAC TROMETHAMINE INJ/PF 30 MG/1 ML SDV IV SCH ×3 (01:19→17:27)
[2018-03-13] MEDS: METOCLOPRAMIDE HCL INJ/PF 10 MG/2 ML SDV IV SCH ×5 (01:19→23:27)
[2018-03-13] MEDS: ALBUTEROL SULFATE 0.083% NEB 2.5 MG/3 ML AMPUL NEB SCH ×4 (01:32→20:42)
[2018-03-13] MEDS: CEFAZOLIN 1 GM/D5W RTU 1 GM/50 ML RTUPB IV SCH (05:21)
[2018-03-13] MEDS: METRONIDAZOLE 500 MG/NS RTU 500 MG/100 ML RTUPB IV SCH (05:23)
[2018-03-13] MEDS: TIOTROPIUM BROMIDE DPI 5 CAP/KIT (18 MCG/CAP) IH SCH (05:28)
[2018-03-13 05:33] LABS: ABSOLUTE EOSINOPHILS # (AUTO) 0.4 10^3/uL (0.0-0.6); ABSOLUTE LYMPHOCYTES (AUTO) 1.1 10^3/uL (0.5-4.7); ABSOLUTE NEUT (AUTO) 6.4 10^3/uL (1.7-8.2); BASOPHILS % (AUTO) 0.3 % (0-2); HEMATOCRIT 29.7 % (36.0-47.0); HEMOGLOBIN 10.2 g/dL (12.0-15.5); LYMPHOCYTES % (AUTO) 12.7 % (13-45); MEAN CORPUSCULAR HEMOGLOBIN 29.2 pg (27.0-33.4); MEAN CORPUSCULAR HGB CONC 34.5 g/dL (32.0-36.0); MEAN CORPUSCULAR VOLUME 85 fl (80-97); MONOCYTES % (AUTO) 11.3 % (3-13); PLATELET COUNT 312 10^3/uL (150-450); RED BLOOD COUNT 3.51 10^6/uL (3.72-5.28); RED CELL DISTRIBUTION WIDTH 13.8 % (11.5-14.0); SEGMENTED NEUTROPHILS % (AUTO) 71.7 % (42-78); TOTAL CELLS COUNTED % (AUTO) 100 %
[2018-03-13 06:00] LABS: ALANINE AMINOTRANSFERASE 54 U/L (9-52); ALBUMIN 2.2 g/dL (3.5-5.0); ALKALINE PHOSPHATASE 153 U/L (38-126); ANION GAP 8 (5-19); ASPARTATE AMINO TRANSFERASE 38 U/L (14-36); BILIRUBIN,DIRECT 0.6 mg/dL (0.0-0.4); BILIRUBIN,TOTAL 0.8 mg/dL (0.2-1.3); BLOOD UREA NITROGEN 7 mg/dL (7-20); CALCIUM 7.9 mg/dL (8.4-10.2); CARBON DIOXIDE 25 mmol/L (22-30); CHLORIDE 100 mmol/L (98-107); GLUCOSE 96 mg/dL (75-110); POTASSIUM 3.4 mmol/L (3.6-5.0); SODIUM 132.7 mmol/L (137-145); TOTAL PROTEIN 4.3 g/dL (6.3-8.2)
[2018-03-13] MEDS: MORPHINE SULFATE 60 MG/60 ML RTUINJ IV PRN (06:16)
[2018-03-13] MEDS ORDERED: MORPHINE SULFATE 10 MG/ML INJ IV PRN (07:40)
--- NOTE | 2018-03-13 07:40 | PDOC PROGRESS REPORT ---
Subjective Progress Note for:: 03/13/18 Reason For Visit: GALLBLADDER CANCER Physical Exam Vital Signs: Temp Pulse Resp BP Pulse Ox 98.6 F 93 16 125/65 98 03/13/18 04:00 03/13/18 04:00 03/13/18 07:00 03/13/18 04:00 03/13/18 07:00 Intake & Output 03/12/18 03/13/18 03/14/18 06:59 06:59 06:59 Intake Total 1068 2060 Output Total 560 1355 Balance 508 705 Weight 92.9 kg 92.9 kg General appearance: PRESENT: no acute distress Respiratory exam: PRESENT: clear to auscultation christian - decreased bs rt base, few crackles, crackles GI/Abdominal exam: PRESENT: soft - soft non tender, debby bilious wound clean dry passing flatus Results Laboratory Results: 03/13/18 04:46 03/13/18 04:46 03/13/18 03/13/18 04:46 04:46 WBC 9.0 RBC 3.51 L Hgb 10.2 L Hct 29.7 L MCV 85 MCH 29.2 MCHC 34.5 RDW 13.8 Plt Count 312 Seg Neutrophils % 71.7 Lymphocytes % 12.7 L Monocytes % 11.3 Eosinophils % 4.0 Basophils % 0.3 Absolute Neutrophils 6.4 Absolute Lymphocytes 1.1 Absolute Monocytes 1.0 Absolute Eosinophils 0.4 Absolute Basophils 0.0 Sodium 132.7 L Potassium 3.4 L Chloride 100 Carbon Dioxide 25 Anion Gap 8 BUN 7 Creatinine 0.43 L Est GFR ( Amer) > 60 Est GFR (Non-Af Amer) > 60 Glucose 96 Calcium 7.9 L Total Bilirubin 0.8 AST 38 H ALT 54 H Alkaline Phosphatase 153 H Total Protein 4.3 L Albumin 2.2 L Impressions: KUB X-Ray 03/11/18 00:00 IMPRESSION: There are mildly dilated small bowel loops throughout the left abdomen, developing ileus or obstruction possible. Hepatobiliary Scan Nuclear Medicine 03/12/18 00:00 IMPRESSION: Bile leak in the gallbladder fossa. Assessment & Plan - Plan Summary Plan Summary: reviwed,,hida, bile leak in gb fossa hepatic duct and cbd visualized labs wnl spoke with Dr Orta from gi who stated he could to ercp and stent if necessary will contact him today will stop administrative processor, start full liquids lasix bid
[2018-03-13] MEDS: FAMOTIDINE INJ/PF 20 MG/2 ML SDV IV SCH ×2 (10:18→21:48)
[2018-03-13] MEDS: FUROSEMIDE INJ/PF 20 MG/2 ML SDV IV SCH ×2 (10:20→21:48)
--- NOTE | 2018-03-13 10:24 | OPERATIVE REPORT E ---
Operative Report NAME: CARMEN RUSSO : 1955 AGE: 63Y DATE OF SURGERY: 03/06/2018 ROOM: 431 ADDENDUM SURGEON: MARLENI DESHPANDE M.D. ASSISTANTS: Colin Yeung M.D. was certified registered dental assistant for the operation who was there through the entirety of the operation and helped with wound retraction, assisted in the procedure itself, and wound closure; MASSIEL Stack was also there during the entirety of the operation. She also helped with wound retraction and wound closure. DICTATING PHYSICIAN: MARLENI DESHPANDE M.D. [id number] PHY#: [id number] ID: [id number] JOB#: [id number] ACCT: [id number] cc:MARLENI DESHPANDE M.D. >
[2018-03-13] MEDS ORDERED: MORPHINE SULFATE 60 MG/60 ML RTUINJ IV PRN (10:39)
[2018-03-13] MEDS: BUDESONIDE/FORMOTEROL 160-4.5 MCG 60 PUFF/6 GM MDI IH SCH ×2 (12:05→21:48)
[2018-03-13] MEDS: LORAZEPAM INJ 2 MG/1 ML VIAL IV PRN ×2 (13:20→23:27)
[2018-03-14] MEDS: KETOROLAC TROMETHAMINE INJ/PF 30 MG/1 ML SDV IV SCH ×2 (02:24→09:33)
[2018-03-14] MEDS: ALBUTEROL SULFATE 0.083% NEB 2.5 MG/3 ML AMPUL NEB SCH ×4 (02:47→20:33)
[2018-03-14 05:53] LABS: ABSOLUTE EOSINOPHILS # (AUTO) 0.4 10^3/uL (0.0-0.6); ABSOLUTE LYMPHOCYTES (AUTO) 1.6 10^3/uL (0.5-4.7); ABSOLUTE MONOCYTES (AUTO) 1.4 10^3/uL (0.1-1.4); BASOPHILS % (AUTO) 0.4 % (0-2); EOSINOPHILS % (AUTO) 3.4 % (0-6); LYMPHOCYTES % (AUTO) 13.7 % (13-45); MEAN CORPUSCULAR HEMOGLOBIN 28.8 pg (27.0-33.4); MEAN CORPUSCULAR HGB CONC 34.4 g/dL (32.0-36.0); MEAN CORPUSCULAR VOLUME 84 fl (80-97); MONOCYTES % (AUTO) 12.6 % (3-13); PLATELET COUNT 389 10^3/uL (150-450); RED BLOOD COUNT 3.47 10^6/uL (3.72-5.28); RED CELL DISTRIBUTION WIDTH 13.7 % (11.5-14.0); SEGMENTED NEUTROPHILS % (AUTO) 69.9 % (42-78); TOTAL CELLS COUNTED % (AUTO) 100 %; WHITE BLOOD COUNT 11.4 10^3/uL (4.0-10.5)
[2018-03-14] MEDS: TIOTROPIUM BROMIDE DPI 5 CAP/KIT (18 MCG/CAP) IH SCH (06:07)
[2018-03-14] MEDS: METOCLOPRAMIDE HCL INJ/PF 10 MG/2 ML SDV IV SCH ×3 (06:07→17:47)
[2018-03-14 06:12] LABS: ALANINE AMINOTRANSFERASE 59 U/L (9-52); ALBUMIN 2.2 g/dL (3.5-5.0); ALKALINE PHOSPHATASE 159 U/L (38-126); ANION GAP 8 (5-19); ASPARTATE AMINO TRANSFERASE 26 U/L (14-36); BILIRUBIN,DIRECT 0.6 mg/dL (0.0-0.4); BILIRUBIN,TOTAL 0.7 mg/dL (0.2-1.3); BLOOD UREA NITROGEN 7 mg/dL (7-20); CALCIUM 8.2 mg/dL (8.4-10.2); CARBON DIOXIDE 26 mmol/L (22-30); CHLORIDE 98 mmol/L (98-107); GLUCOSE 104 mg/dL (75-110); POTASSIUM 3.5 mmol/L (3.6-5.0); SODIUM 131.8 mmol/L (137-145); TOTAL PROTEIN 4.2 g/dL (6.3-8.2)
[2018-03-14] MEDS: INSULIN REG, HUMAN 100 UNIT/ML 3 ML VIAL (PYX) SUBCUT SCH ×3 (07:40→17:46)
[2018-03-14] MEDS ORDERED: SUCCINYLCHOLINE CHLORIDE INJ 200 MG/10 ML VIAL ONE (08:07)
--- NOTE | 2018-03-14 08:39 | PDOC PROGRESS REPORT ---
Subjective Progress Note for:: 03/14/18 Reason For Visit: GALLBLADDER CANCER Physical Exam Vital Signs: Temp Pulse Resp BP Pulse Ox 98.6 F 108 H 20 126/77 H 94 03/13/18 23:21 03/13/18 23:21 03/14/18 05:00 03/13/18 23:21 03/14/18 05:00 Intake & Output 03/13/18 03/14/18 03/15/18 06:59 06:59 06:59 Intake Total 2060 900 Output Total 1355 2640 Balance 705 -1740 Weight 92.9 kg 101 kg GI/Abdominal exam: PRESENT: soft - debby still with bilous drainage Results Laboratory Results: 03/14/18 04:54 03/14/18 04:54 03/14/18 03/14/18 04:54 04:54 WBC 11.4 H RBC 3.47 L Hgb 10.0 L Hct 29.0 L MCV 84 MCH 28.8 MCHC 34.4 RDW 13.7 Plt Count 389 Seg Neutrophils % 69.9 Lymphocytes % 13.7 Monocytes % 12.6 Eosinophils % 3.4 Basophils % 0.4 Absolute Neutrophils 8.0 Absolute Lymphocytes 1.6 Absolute Monocytes 1.4 Absolute Eosinophils 0.4 Absolute Basophils 0.0 Sodium 131.8 L Potassium 3.5 L Chloride 98 Carbon Dioxide 26 Anion Gap 8 BUN 7 Creatinine 0.44 L Est GFR ( Amer) > 60 Est GFR (Non-Af Amer) > 60 Glucose 104 Calcium 8.2 L Total Bilirubin 0.7 AST 26 ALT 59 H Alkaline Phosphatase 159 H Total Protein 4.2 L Albumin 2.2 L Impressions: KUB X-Ray 03/11/18 00:00 IMPRESSION: There are mildly dilated small bowel loops throughout the left abdomen, developing ileus or obstruction possible. Hepatobiliary Scan Nuclear Medicine 03/12/18 00:00 IMPRESSION: Bile leak in the gallbladder fossa. Assessment & Plan - Plan Summary Plan Summary: apprecieate input by Dr Orta last pm pt to have ercp and poss stent placement this evening npo after lunch today.
--- NOTE | 2018-03-14 09:02 | PDOC PROGRESS REPORT ---
Subjective Progress Note for:: 03/14/18 Subjective:: No acute events overnight, eating more. Planned for ERCP today Reason For Visit: GALLBLADDER CANCER Physical Exam Vital Signs: Temp Pulse Resp BP Pulse Ox 98.6 F 108 H 20 126/77 H 94 03/13/18 23:21 03/13/18 23:21 03/14/18 05:00 03/13/18 23:21 03/14/18 05:00 Intake & Output 03/13/18 03/14/18 03/15/18 06:59 06:59 06:59 Intake Total 2060 900 Output Total 1355 2640 Balance 705 -1740 Weight 92.9 kg 101 kg General appearance: PRESENT: no acute distress, well-developed, well-nourished Head exam: PRESENT: atraumatic, normocephalic Eye exam: PRESENT: conjunctiva pink, EOMI, PERRLA. ABSENT: scleral icterus Ear exam: PRESENT: normal external ear exam Mouth exam: PRESENT: moist, tongue midline Neck exam: ABSENT: carotid bruit, JVD, lymphadenopathy, thyromegaly Respiratory exam: PRESENT: clear to auscultation christian. ABSENT: rales, rhonchi, wheezes Cardiovascular exam: PRESENT: RRR. ABSENT: diastolic murmur, rubs, systolic murmur Pulses: PRESENT: normal dorsalis pedis pul Vascular exam: PRESENT: normal capillary refill GI/Abdominal exam: PRESENT: normal bowel sounds, soft. ABSENT: distended, guarding, mass, organolmegaly, rebound, tenderness Rectal exam: PRESENT: deferred Extremities exam: PRESENT: full ROM. ABSENT: calf tenderness, clubbing, pedal edema Neurological exam: PRESENT: alert, awake, oriented to person, oriented to place, oriented to time, oriented to situation, CN II-XII grossly intact. ABSENT: motor sensory deficit Psychiatric exam: PRESENT: appropriate affect, normal mood. ABSENT: homicidal ideation, suicidal ideation Skin exam: PRESENT: dry, intact, warm. ABSENT: cyanosis, rash Results Laboratory Results: 03/14/18 04:54 03/14/18 04:54 03/14/18 03/14/18 04:54 04:54 WBC 11.4 H RBC 3.47 L Hgb 10.0 L Hct 29.0 L MCV 84 MCH 28.8 MCHC 34.4 RDW 13.7 Plt Count 389 Seg Neutrophils % 69.9 Lymphocytes % 13.7 Monocytes % 12.6 Eosinophils % 3.4 Basophils % 0.4 Absolute Neutrophils 8.0 Absolute Lymphocytes 1.6 Absolute Monocytes 1.4 Absolute Eosinophils 0.4 Absolute Basophils 0.0 Sodium 131.8 L Potassium 3.5 L Chloride 98 Carbon Dioxide 26 Anion Gap 8 BUN 7 Creatinine 0.44 L Est GFR ( Amer) > 60 Est GFR (Non-Af Amer) > 60 Glucose 104 Calcium 8.2 L Total Bilirubin 0.7 AST 26 ALT 59 H Alkaline Phosphatase 159 H Total Protein 4.2 L Albumin 2.2 L Impressions: KUB X-Ray 03/11/18 00:00 IMPRESSION: There are mildly dilated small bowel loops throughout the left abdomen, developing ileus or obstruction possible. Hepatobiliary Scan Nuclear Medicine 03/12/18 00:00 IMPRESSION: Bile leak in the gallbladder fossa. Assessment & Plan - Diagnosis (1) Gallbladder cancer Is this a current diagnosis for this admission?: Yes Plan: Has bile leak, planned for ERCP today. Will follow.
[2018-03-14] MEDS: FUROSEMIDE INJ/PF 20 MG/2 ML SDV IV SCH ×2 (09:33→22:18)
[2018-03-14] MEDS: FAMOTIDINE INJ/PF 20 MG/2 ML SDV IV SCH ×2 (09:33→22:18)
[2018-03-14] MEDS: BUDESONIDE/FORMOTEROL 160-4.5 MCG 60 PUFF/6 GM MDI IH SCH ×2 (11:43→22:36)
[2018-03-14] MEDS ORDERED: MIDAZOLAM 2 MG/2 ML INJ ONE (17:22)
[2018-03-14] MEDS ORDERED: ONDANSETRON HCL INJ/PF 4 MG/2 ML SDV ONE (17:22)
[2018-03-14] MEDS ORDERED: FENTANYL CITRATE INJ/PF 100 MCG/2 ML AMPUL ONE (17:22)
[2018-03-14] MEDS ORDERED: DEXAMETHASONE SOD PHOSPHATE INJ 4 MG/1 ML VIAL ONE (17:22)
[2018-03-14] MEDS ORDERED: LIDOCAINE 2% INJ-PF (20 MG/ML) 10 ML AMPUL ONE (17:22)
[2018-03-14] MEDS ORDERED: PROPOFOL INJ 200 MG/20 ML VIAL IV ONE (17:23)
[2018-03-14] MEDS ORDERED: GLUCAGON,HUMAN RECOMB 1 MG INJ ONE (18:31)
[2018-03-14] MEDS ORDERED: PROMETHAZINE HCL INJ 25 MG/1 ML VIAL IV PRN ×2 (18:40)
[2018-03-14] MEDS ORDERED: ONDANSETRON HCL INJ/PF 4 MG/2 ML SDV IV PRN (18:40)
[2018-03-14] MEDS ORDERED: FENTANYL CITRATE INJ/PF 100 MCG/2 ML AMPUL IV PRN ×3 (18:40)
[2018-03-14] MEDS ORDERED: MORPHINE SULFATE 10 MG/ML INJ IV PRN (18:40)
[2018-03-14] MEDS ORDERED: DIPHENHYDRAMINE HCL 50 MG/ML VIAL IV PRN (18:40)
[2018-03-14] MEDS ORDERED: MEPERIDINE HCL/PF INJ 25 MG/1 ML DISP.SYRIN IV PRN (18:40)
--- NOTE | 2018-03-14 19:00 | PDOC CONSULTATION ---
Consultation Consult Date: 03/13/18 History of Present Illness Admission Date/PCP: 03/06/18 06:35 JACKIE DUMONT MD History of Present Illness: CARMEN RUSSO is a 63 year old female Patient who was admitted on 03/01/2018 for cholecystectomy. An initial exploratory laparoscopy showed evidence of a gallbladder mass with the biopsy showing moderately differentiated adenocarcinoma. She then had a radical cholecystectomy performed on 03/06/2018 again confirming adenocarcinoma metastasizing to the omentum. A JASKARAN drain was inserted and this has been draining significant amount of bile since her surgery. She had the HIDA scan on 03/12/2018 that showed bile leakage into the gallbladder fossa. LFTs on 03/13/2018 showed slightly elevated transaminases of 34 and 54 with alkaline phosphatase of 153 and bilirubin of 0.8.. Her CA 199 was elevated at 342 on 03/05/2018 but she had a normal CA 125 and a slightly elevated CEA of 3.1 She does complain of some pain over the surgical wound. She was having some difficulty breathing and had required IV Lasix. She is feeling better Past Medical History Cardiac Medical History: Reports: Hypertension - ON MEDS Denies: Coronary Artery Disease, Myocardial Infarction Pulmonary Medical History: Reports: Asthma, Bronchitis - HX OF , Chronic Obstructive Pulmonary Disease (COPD) - INHALER, NEBULIZER, Pneumonia - 08/21 Neurological Medical History: Reports: Seizures - A CHILD X 1, NO MEDS Endocrine Medical History: Reports: Diabetes Mellitus Type 2 - borderline Malignancy Medical History: Reports: Other - Gallbladder cancer Musculoskeltal Medical History: Denies: Arthritis Hematology: Denies: Anemia Past Surgical History Past Surgical History: Reports: Orthopedic Surgery - left foot/ titanium plates placed, Tonsillectomy, Other - Radical cholecystectomy, liver resection, periportal lymphadenectomy Denies: Hysterectomy Social History Smoking Status: Former Smoker Cigarettes Packs Per Day: 1 Number of Years Smokin Frequency of Alcohol Use: None Drugs: None Hx Prescription Drug Abuse: No - Advance Directive Resuscitation Status: Full Code Family History Family History: Reviewed & Not Pertinent Parental Family History Reviewed: No Children Family History Reviewed: NA Sibling(s) Family History Reviewed.: NA Medication/Allergy Home Medications: Albuterol Sulfate [Albuterol Sulfate 2.5mg/3 mL] 2.5 mg IH Q6HP PRN 01/14/12 Amlodipine Besylate [Norvasc 5 mg Tablet] 5 mg PO DAILY 01/14/12 Budesonide/Formoterol Fumarate [Symbicort HFA 160-4.5 mcg Inhaler 6 gm] 2 puff IH Q12 01/14/12 Irbesartan/Hydrochlorothiazide [Avalide 300-12.5 Mg Tablet] 1 each PO DAILY 01/14/12 Fenofibric Acid (Choline) [Fenofibric Acid] 135 mg PO WSUPPER 03/06/18 Hydrocodone Bit/Acetaminophen [Hydrocodon-Acetaminophn 10-325] 1 each PO Q6HP PRN MDD FILLED 03/01 FOR 7 DAYS 03/06/18 Metformin HCl [Metformin HCl ER] 500 mg PO BIDBS 03/06/18 Tiotropium [place] [Spiriva Respimat] 2 puff IH DAILY 03/06/18 Allergies/Adverse Reactions: Penicillins Adverse Reaction (Severe, Verified 03/06/18 07:20) WHEEZE Review of Systems All systems: reviewed and no additional remarkable complaints except as stated Physical Exam Vital Signs: Temp Pulse Resp BP Pulse Ox 97.4 F 116 H 18 144/75 H 97 03/14/18 17:17 03/14/18 17:17 03/14/18 17:17 03/14/18 17:17 03/14/18 17:17 Intake & Output 03/13/18 03/14/18 03/15/18 06:59 06:59 06:59 Intake Total 2060 900 Output Total 1355 2640 Balance 705 -1740 Weight 92.9 kg 101 kg Exam: General: Patient is alert. HEENT: There is no pallor or jaundice. PERRLA. Oropharynx normal Respiratory: No chest deformity. No respiratory distress. Chest wall palpitation was unremarkable. Breath sounds were normal Cardiovascular: Heart sounds 1 and 2 normal with no murmurs. Abdominal: She has a wound from the recent open cholecystectomy and a JASKARAN drain in place. Extremities: There is some pedal edema Neurological: Alert and oriented x4. Grossly nonfocal. Normal speech Skin: No significant rash Psychological: Normal affect Results Laboratory Results: 03/14/18 04:54 03/14/18 04:54 03/14/18 03/14/18 04:54 04:54 WBC 11.4 H RBC 3.47 L Hgb 10.0 L Hct 29.0 L MCV 84 MCH 28.8 MCHC 34.4 RDW 13.7 Plt Count 389 Seg Neutrophils % 69.9 Lymphocytes % 13.7 Monocytes % 12.6 Eosinophils % 3.4 Basophils % 0.4 Absolute Neutrophils 8.0 Absolute Lymphocytes 1.6 Absolute Monocytes 1.4 Absolute Eosinophils 0.4 Absolute Basophils 0.0 Sodium 131.8 L Potassium 3.5 L Chloride 98 Carbon Dioxide 26 Anion Gap 8 BUN 7 Creatinine 0.44 L Est GFR ( Amer) > 60 Est GFR (Non-Af Amer) > 60 Glucose 104 Calcium 8.2 L Total Bilirubin 0.7 AST 26 ALT 59 H Alkaline Phosphatase 159 H Total Protein 4.2 L Albumin 2.2 L Impressions: KUB X-Ray 03/11/18 00:00 IMPRESSION: There are mildly dilated small bowel loops throughout the left abdomen, developing ileus or obstruction possible. Hepatobiliary Scan Nuclear Medicine 03/12/18 00:00 IMPRESSION: Bile leak in the gallbladder fossa. Assessment & Plan - Diagnosis (1) Bile leak, postoperative Is this a current diagnosis for this admission?: Yes Plan: She has evidence of bile leak from her HIDA scan. The need for an ERCP and stent placement was explained to the patient and her and they are in agreement. (2) Abnormal liver function test Is this a current diagnosis for this admission?: Yes (3) Abnormal findings on diagnostic imaging of liver and biliary tract Is this a current diagnosis for this admission?: Yes
--- NOTE | 2018-03-14 19:04 | Operative Report ---
Operative Report DATE OF SURGERY: 03/14/18 Operative Report: Pre-op diagnosis: Bile leak status post cholecystectomy Post-op diagnosis: 1. Bile leakage into gallbladder fossa 2. Small Common bile duct sludge Surgery: ERCP with sphincterotomy, balloon sludge extraction and 10 [place] 5 cm stent placement Medications: As per anesthesia Tissue removed: None Procedure: After informed consent obtained from patient, the throat was sprayed with Hurricane and conscious sedation was achieved. The ERCP endoscope was then inserted into the esophagus blindly and advanced into the stomach. The duodenum was entered and the ampulla was identified. Using the triple-lumen sphincterotomy catheter the pancreatic duct was initially cannulated and the pancreatogram was normal. Common bile duct was then freely cannulated. A cholangiogram was obtained which showed contrast leakage in the region of the gallbladder fossa. The common bile duct and intrahepatic ducts did not appear dilated. A good sized sphincterotomy was then performed using the endocut mode. The catheter was removed over the guidewire before a 9-12 mm balloon catheter was inserted. The balloon was inflated to 12 mm in the proximal common bile duct and pulled down the duct. Some sludge was extracted. The duct was swept one more time. A 10 Nauruan 5 cm stent was then placed without any difficulty. Patient tolerated procedure well. Findings Common bile duct: There is bile leakage around the gallbladder fossa. Stent was placed Intrahepatic ducts: Normal Pancreatic duct: Normal Plan: Plan to remove biliary stent in 4-6 weeks once bile drainage has stopped OPERATION: .
--- NOTE | 2018-03-14 19:21 | RADIOLOGY REPORT (SQ) ---
EXAM DESCRIPTION: NO CHG FLUORO; ENDO CATH/BILIARY DUCT COMPLETED DATE/TIME: 03/14/2018 7:09 pm REASON FOR STUDY: ERCP C23 MALIGNANT NEOPLASM OF GALLBLADDER COMPARISON: None. FLUOROSCOPY TIME: 3.3 minutes 6 images saved to PACS. TECHNIQUE: Intra-operative images acquired during surgical procedure to evaluate progress. NUMBER OF IMAGES: Sec LIMITATIONS: None. FINDINGS: Retrograde injection of the common duct. A balloon catheter present. No definitive filli ng defects in the visualized images. IMPRESSION: IMAGE(S) OBTAINED DURING PROCEDURE. COMMENT: Quality ID 145: Final reports for procedures using fluoroscopy that document radiation exp osure indices, or exposure time and number of fluorographic images (if radiation exposure indices are not available) Please consult full operative report of the attending physician for description of the procedure. TECHNICAL DOCUMENTATION: JOB ID: [id number] [employer]- All Rights Reserved Reading location - IP/workstation name: [email or web address]
--- NOTE | 2018-03-14 19:21 | RADIOLOGY REPORT (SQ) ---
EXAM DESCRIPTION: NO CHG FLUORO; ENDO CATH/BILIARY DUCT COMPLETED DATE/TIME: 03/14/2018 7:09 pm REASON FOR STUDY: ERCP C23 MALIGNANT NEOPLASM OF GALLBLADDER COMPARISON: None. FLUOROSCOPY TIME: 3.3 minutes 6 images saved to PACS. TECHNIQUE: Intra-operative images acquired during surgical procedure to evaluate progress. NUMBER OF IMAGES: Sec LIMITATIONS: None. FINDINGS: Retrograde injection of the common duct. A balloon catheter present. No definitive filli ng defects in the visualized images. IMPRESSION: IMAGE(S) OBTAINED DURING PROCEDURE. COMMENT: Quality ID 145: Final reports for procedures using fluoroscopy that document radiation exp osure indices, or exposure time and number of fluorographic images (if radiation exposure indices are not available) Please consult full operative report of the attending physician for description of the procedure. TECHNICAL DOCUMENTATION: JOB ID: [id number] [employer]- All Rights Reserved Reading location - IP/workstation name: [email or web address]
[2018-03-15] MEDS: INSULIN REG, HUMAN 100 UNIT/ML 3 ML VIAL (PYX) SUBCUT SCH ×4 (01:13→20:44)
[2018-03-15] MEDS: ALBUTEROL SULFATE 0.083% NEB 2.5 MG/3 ML AMPUL NEB SCH ×4 (01:18→20:11)
[2018-03-15] MEDS: METOCLOPRAMIDE HCL INJ/PF 10 MG/2 ML SDV IV SCH ×4 (01:22→22:28)
[2018-03-15] MEDS: LORAZEPAM INJ 2 MG/1 ML VIAL IV PRN ×3 (01:22→22:36)
[2018-03-15 05:05] LABS: HEMATOCRIT 29.8 % (36.0-47.0); HEMOGLOBIN 10.1 g/dL (12.0-15.5); MEAN CORPUSCULAR HEMOGLOBIN 28.3 pg (27.0-33.4); MEAN CORPUSCULAR HGB CONC 34.1 g/dL (32.0-36.0); MEAN CORPUSCULAR VOLUME 83 fl (80-97); PLATELET COUNT 391 10^3/uL (150-450); RED BLOOD COUNT 3.58 10^6/uL (3.72-5.28); RED CELL DISTRIBUTION WIDTH 13.8 % (11.5-14.0); WHITE BLOOD COUNT 13.3 10^3/uL (4.0-10.5)
[2018-03-15 05:10] LABS: ALANINE AMINOTRANSFERASE 39 U/L (9-52); ALBUMIN 2.4 g/dL (3.5-5.0); ALKALINE PHOSPHATASE 196 U/L (38-126); ANION GAP 9 (5-19); ASPARTATE AMINO TRANSFERASE 29 U/L (14-36); BILIRUBIN,DIRECT 0.6 mg/dL (0.0-0.4); BILIRUBIN,TOTAL 0.8 mg/dL (0.2-1.3); BLOOD UREA NITROGEN 8 mg/dL (7-20); CALCIUM 8.2 mg/dL (8.4-10.2); CARBON DIOXIDE 27 mmol/L (22-30); CHLORIDE 100 mmol/L (98-107); GLUCOSE 128 mg/dL (75-110); POTASSIUM 3.9 mmol/L (3.6-5.0); TOTAL PROTEIN 4.5 g/dL (6.3-8.2)
[2018-03-15] MEDS: TIOTROPIUM BROMIDE DPI 5 CAP/KIT (18 MCG/CAP) IH SCH (05:31)
[2018-03-15 05:38] LABS: ABSOLUTE LYMPHOCYTES# (MANUAL) 1.2 10^3/uL (0.5-4.7); ABSOLUTE MONOCYTES # (MANUAL) 0.5 10^3/uL (0.1-1.4); ABSOLUTE NEUTROPHILS# (MANUAL) 11.6 10^3/uL (1.7-8.2); BAND NEUTROPHILS % (MANUAL) 3 % (3-5); BASOPHILS % (MANUAL) 0 % (0-2); EOSINOPHILS % (MANUAL) 0 % (0-6); LYMPHOCYTES % (MANUAL) 9 % (13-45); MONOCYTES % (MANUAL) 4 % (3-13); SEGMENTED NEUTROPHILS % (MAN) 84 % (42-78); TOTAL CELLS COUNTED 100
[2018-03-15 05:39] LABS: PLATELET COMMENT ADEQUATE; RBC MORPHOLOGY COMMENT NORMO-CYTIC/CHROMIC
--- NOTE | 2018-03-15 08:04 | PDOC PROGRESS REPORT ---
Subjective Progress Note for:: 03/15/18 Reason For Visit: GALLBLADDER CANCER Physical Exam Vital Signs: Temp Pulse Resp BP Pulse Ox 98.3 F 106 H 18 135/74 H 95 03/14/18 23:45 03/15/18 01:20 03/15/18 01:20 03/14/18 23:45 03/15/18 01:20 Intake & Output 03/14/18 03/15/18 03/16/18 06:59 06:59 06:59 Intake Total 900 1287 Output Total 2640 3960 Balance -1740 -2673 Weight 101 kg 103.3 kg General appearance: PRESENT: no acute distress Eye exam: PRESENT: conjunctiva pink, EOMI Mouth exam: PRESENT: moist Neck exam: PRESENT: full ROM Respiratory exam: PRESENT: clear to auscultation christian Cardiovascular exam: PRESENT: RRR Pulses: PRESENT: normal radial pulses, normal femoral pulses GI/Abdominal exam: PRESENT: soft, other - abd soft, non tender wound clean debby in place with decreased drainage. Neurological exam: PRESENT: alert, awake, oriented to person, oriented to place, oriented to time, oriented to situation Skin exam: PRESENT: dry Results Laboratory Results: 03/15/18 04:44 03/15/18 04:44 03/15/18 03/15/18 04:44 04:44 WBC 13.3 H RBC 3.58 L Hgb 10.1 L Hct 29.8 L MCV 83 MCH 28.3 MCHC 34.1 RDW 13.8 Plt Count 391 Seg Neutrophils % Not Reportable Lymphocytes % Not Reportable Monocytes % Not Reportable Eosinophils % Not Reportable Basophils % Not Reportable Absolute Neutrophils Not Reportable Absolute Lymphocytes Not Reportable Absolute Monocytes Not Reportable Absolute Eosinophils Not Reportable Absolute Basophils Not Reportable Sodium 136.0 L Potassium 3.9 Chloride 100 Carbon Dioxide 27 Anion Gap 9 BUN 8 Creatinine 0.39 L Est GFR ( Amer) > 60 Est GFR (Non-Af Amer) > 60 Glucose 128 H Calcium 8.2 L Total Bilirubin 0.8 AST 29 ALT 39 Alkaline Phosphatase 196 H Total Protein 4.5 L Albumin 2.4 L Impressions: KUB X-Ray 03/11/18 00:00 IMPRESSION: There are mildly dilated small bowel loops throughout the left abdomen, developing ileus or obstruction possible. Hepatobiliary Scan Nuclear Medicine 03/12/18 00:00 IMPRESSION: Bile leak in the gallbladder fossa. Catheter Placement 03/14/18 00:00 IMPRESSION: IMAGE(S) OBTAINED DURING PROCEDURE. Fluoroscopy 03/14/18 00:00 IMPRESSION: IMAGE(S) OBTAINED DURING PROCEDURE. Status: Image reviewed by me - ercp films reviewed/ Assessment & Plan - Inpatient Certification Medical Necessity: Need For IV Fluids - Plan Summary Plan Summary: appreciate gi procedure last pm ercp done with stent placed markedly less drainage will start soft diet today pt is passing flautus, had 1 bm 2-3 days ago will add a laxative this am wbc 13 today, off abx, will trend.
[2018-03-15] MEDS: LACTULOSE SYRUP 20 GM/30 ML UDCUP PO SCH ×2 (09:29→20:44)
[2018-03-15] MEDS: FAMOTIDINE INJ/PF 20 MG/2 ML SDV IV SCH ×2 (09:29→22:32)
[2018-03-15] MEDS: FUROSEMIDE INJ/PF 20 MG/2 ML SDV IV SCH ×2 (09:30→22:32)
[2018-03-15] MEDS: MORPHINE SULFATE 10 MG/ML INJ IV PRN ×3 (12:36→22:35)
[2018-03-15] MEDS: BUDESONIDE/FORMOTEROL 160-4.5 MCG 60 PUFF/6 GM MDI IH SCH ×2 (12:37→22:31)
[2018-03-15] MEDS ORDERED: FUROSEMIDE INJ/PF 40 MG/4 ML SDV ONE (17:06)
[2018-03-15] MEDS: IPRATROPIUM/ALBUTEROL 0.5-2.5 MG/3 ML AMPUL NEB PRN (17:21)
[2018-03-15] MEDS ORDERED: FUROSEMIDE INJ/PF 40 MG/4 ML SDV IV ONE (17:30)
--- NOTE | 2018-03-15 17:37 | RADIOLOGY REPORT (SQ) ---
EXAM DESCRIPTION: CHEST SINGLE VIEW COMPLETED DATE/TIME: 03/15/2018 5:17 pm REASON FOR STUDY: Shortness of breath COMPARISON: 02/23/2018 EXAM PARAMETERS: NUMBER OF VIEWS: One view. TECHNIQUE: Single frontal radiographic view of the chest acquired. RADIATION DOSE: NA LIMITATIONS: None. FINDINGS: LUNGS AND PLEURA: Interval development of bilateral pleural effusions and bibasilar opacit ies. MEDIASTINUM AND HILAR STRUCTURES: No masses. Contour normal. HEART AND VASCULAR STRUCTURES: Heart enlarged. No overt failure. BONES: No acute findings. HARDWARE: None in the chest. OTHER: Possible free air under the hemidiaphragm. IMPRESSION: Bilateral pleural effusions and bibasilar opacities. Possible free intraperitoneal air. COMMENT: Pertinent findings on the imaging study reported as a CRITICAL RESULT to nurse provider at 17:31 on 03/15/2018. Category of Critical Result: Possible free intraperitoneal air TECHNICAL DOCUMENTATION: JOB ID: [id number] [employer]- All Rights Reserved Reading location - IP/workstation name: [email or web address]
--- NOTE | 2018-03-15 21:39 | RADIOLOGY REPORT (SQ) ---
EXAM DESCRIPTION: CT ABDOMEN PELVIS WITHOUT IV CONTRAST COMPLETED DATE/TME: 03/15/2018 00:00 CLINICAL HISTORY: 63 years, Female, EVAL FOR free air COMPARISON: None. TECHNIQUE: [id number] Images stored on PACS. All CT scanners at this facility use dose modulation, iterative reconstruction, and/or weight based dosing when appropriate to reduce radiation dose to as low as reasonably achievable (ALARA). [facility]: Dose Right [facility]: CareDose [facility]: Dose Right [facility]: Teradose 4D [facility]: [employer] LIMITATIONS: None. FINDINGS: Limited evaluation of the lung bases demonstrates a small right pleural effusion. Osseous structures are grossly intact. Overlying skin aure are noted in the right upper abdomen. There is underlying inflammatory change in the subcutaneous fat. Correlate with surgical history. Drainage catheter projects over the right mid abdomen. There is a moderate degree of motion artifact. Probable fatty infiltrative change to the liver. Status post cholecystectomy. There is fluid surrounding the liver and in the right upper quadrant. A small amount of free intraperitoneal air in the right upper quadrant as well as pneumobilia. The visualized spleen, adrenal glands, are unremarkable. Biliary stent in place. Nonobstructing right renal calculi. The kidneys are otherwise unremarkable. No evidence for bowel obstruction. Small amount of free fluid in the pelvis. Body wall edema/anasarca. IMPRESSION: Post surgical changes, as above with a small amount of free intraperitoneal air in the upper abdomen and right upper quadrant. There is also a small amount of free fluid in this region as well as pneumobilia. Biliary stent in place. A drainage catheter projects over the right mid abdomen. Correlate with surgical history. Small right pleural effusion with adjacent consolidative change. Nonobstructing right renal calculi. Diffuse anasarca. Fatty infiltrative change to the liver. TECHNICAL DOCUMENTATION: Quality ID # 436: Final reports with documentation of one or more dose reduction techniques (e.g., Automated exposure control, adjustment of the mA and/or kV according to patient size, use of iterative reconstruction technique) copyright 2011 [employer]- All Rights Reserved
[2018-03-16] MEDS: INSULIN REG, HUMAN 100 UNIT/ML 3 ML VIAL (PYX) SUBCUT SCH ×4 (00:22→17:16)
[2018-03-16] MEDS: METOCLOPRAMIDE HCL INJ/PF 10 MG/2 ML SDV IV SCH ×4 (00:40→17:16)
[2018-03-16] MEDS: MORPHINE SULFATE 10 MG/ML INJ IV PRN (00:40)
[2018-03-16] MEDS: ALBUTEROL SULFATE 0.083% NEB 2.5 MG/3 ML AMPUL NEB SCH ×4 (02:11→21:32)
[2018-03-16] MEDS: LORAZEPAM INJ 2 MG/1 ML VIAL IV PRN ×2 (05:08→21:12)
[2018-03-16] MEDS: IPRATROPIUM/ALBUTEROL 0.5-2.5 MG/3 ML AMPUL NEB PRN ×3 (05:13→23:41)
[2018-03-16] MEDS: TIOTROPIUM BROMIDE DPI 5 CAP/KIT (18 MCG/CAP) IH SCH (05:13)
[2018-03-16 05:44] LABS: HEMATOCRIT 33.9 % (36.0-47.0); HEMOGLOBIN 11.4 g/dL (12.0-15.5); MEAN CORPUSCULAR HEMOGLOBIN 28.3 pg (27.0-33.4); MEAN CORPUSCULAR HGB CONC 33.7 g/dL (32.0-36.0); MEAN CORPUSCULAR VOLUME 84 fl (80-97); PLATELET COUNT 519 10^3/uL (150-450); RED BLOOD COUNT 4.04 10^6/uL (3.72-5.28); RED CELL DISTRIBUTION WIDTH 14.3 % (11.5-14.0)
[2018-03-16 05:59] LABS: ALANINE AMINOTRANSFERASE 39 U/L (9-52); ALBUMIN 2.7 g/dL (3.5-5.0); ALKALINE PHOSPHATASE 237 U/L (38-126); ANION GAP 12 (5-19); ASPARTATE AMINO TRANSFERASE 26 U/L (14-36); BILIRUBIN,DIRECT 0.6 mg/dL (0.0-0.4); BLOOD UREA NITROGEN 8 mg/dL (7-20); CALCIUM 8.2 mg/dL (8.4-10.2); CARBON DIOXIDE 30 mmol/L (22-30); CHLORIDE 90 mmol/L (98-107); GLUCOSE 108 mg/dL (75-110); POTASSIUM 3.7 mmol/L (3.6-5.0); SODIUM 132.1 mmol/L (137-145); TOTAL PROTEIN 5.1 g/dL (6.3-8.2)
[2018-03-16 06:10] LABS: ABSOLUTE LYMPHOCYTES# (MANUAL) 2.5 10^3/uL (0.5-4.7); ABSOLUTE MONOCYTES # (MANUAL) 1.9 10^3/uL (0.1-1.4); ABSOLUTE NEUTROPHILS# (MANUAL) 26.8 10^3/uL (1.7-8.2); BASOPHILS % (MANUAL) 0 % (0-2); EOSINOPHILS % (MANUAL) 1 % (0-6); LYMPHOCYTES % (MANUAL) 8 % (13-45); MONOCYTES % (MANUAL) 6 % (3-13); SEGMENTED NEUTROPHILS % (MAN) 85 % (42-78); TOTAL CELLS COUNTED 100
[2018-03-16 06:11] LABS: ANISOCYTOSIS SLIGHT; PLATELET CLUMPS PRESENT; PLATELET COMMENT ADEQUATE; POLYCHROMASIA SLIGHT
[2018-03-16 06:12] LABS: WHITE BLOOD COUNT 31.5 10^3/uL (4.0-10.5)
[2018-03-16] MEDS ORDERED: VANCOMYCIN HCL 0 MG in DEXTROSE 5%-WATER 250 ML IV NR (06:30)
[2018-03-16] MEDS ORDERED: VANCOMYCIN HCL 1,500 MG in DEXTROSE 5%-WATER 250 ML IV ONE (06:45)
[2018-03-16] MEDS: METRONIDAZOLE 500 MG/NS RTU 500 MG/100 ML RTUPB IV SCH ×3 (06:53→17:08)
--- NOTE | 2018-03-16 08:12 | PDOC PROGRESS REPORT ---
Subjective Progress Note for:: 03/16/18 Subjective:: Patient sleepy this morning but just given Ativan, had a rough night last night Reason For Visit: GALLBLADDER CANCER Physical Exam Vital Signs: Temp Pulse Resp BP Pulse Ox 97.7 F 106 H 18 101/62 92 03/15/18 23:20 03/16/18 05:17 03/16/18 05:17 03/15/18 23:20 03/15/18 23:20 Intake & Output 03/15/18 03/16/18 03/17/18 06:59 06:59 06:59 Intake Total 1287 1377 Output Total 3960 7595 Balance -5476 -1123 Weight 103.3 kg 98.2 kg General appearance: PRESENT: no acute distress, well-developed, well-nourished Head exam: PRESENT: atraumatic, normocephalic Eye exam: PRESENT: conjunctiva pink, EOMI, PERRLA. ABSENT: scleral icterus Ear exam: PRESENT: normal external ear exam Mouth exam: PRESENT: moist, tongue midline Neck exam: ABSENT: carotid bruit, JVD, lymphadenopathy, thyromegaly Respiratory exam: PRESENT: clear to auscultation christian. ABSENT: rales, rhonchi, wheezes Cardiovascular exam: PRESENT: RRR. ABSENT: diastolic murmur, rubs, systolic murmur Pulses: PRESENT: normal dorsalis pedis pul Vascular exam: PRESENT: normal capillary refill GI/Abdominal exam: PRESENT: normal bowel sounds, soft. ABSENT: distended, guarding, mass, organolmegaly, rebound, tenderness Rectal exam: PRESENT: deferred Extremities exam: PRESENT: full ROM. ABSENT: calf tenderness, clubbing, pedal edema Neurological exam: PRESENT: alert, awake, oriented to person, oriented to place, oriented to time, oriented to situation, CN II-XII grossly intact. ABSENT: motor sensory deficit Psychiatric exam: PRESENT: appropriate affect, normal mood. ABSENT: homicidal ideation, suicidal ideation Skin exam: PRESENT: dry, intact, warm. ABSENT: cyanosis, rash Results Laboratory Results: 03/16/18 05:06 03/16/18 05:06 03/16/18 03/16/18 05:06 05:06 WBC 31.5 H* D RBC 4.04 Hgb 11.4 L Hct 33.9 L MCV 84 MCH 28.3 MCHC 33.7 RDW 14.3 H Plt Count 519 H Seg Neutrophils % Not Reportable Lymphocytes % Not Reportable Monocytes % Not Reportable Eosinophils % Not Reportable Basophils % Not Reportable Absolute Neutrophils Not Reportable Absolute Lymphocytes Not Reportable Absolute Monocytes Not Reportable Absolute Eosinophils Not Reportable Absolute Basophils Not Reportable Sodium 132.1 L Potassium 3.7 Chloride 90 L Carbon Dioxide 30 Anion Gap 12 BUN 8 Creatinine 0.56 Est GFR ( Amer) > 60 Est GFR (Non-Af Amer) > 60 Glucose 108 Calcium 8.2 L Total Bilirubin 1.0 AST 26 ALT 39 Alkaline Phosphatase 237 H Total Protein 5.1 L Albumin 2.7 L Impressions: KUB X-Ray 03/11/18 00:00 IMPRESSION: There are mildly dilated small bowel loops throughout the left abdomen, developing ileus or obstruction possible. Hepatobiliary Scan Nuclear Medicine 03/12/18 00:00 IMPRESSION: Bile leak in the gallbladder fossa. Catheter Placement 03/14/18 00:00 IMPRESSION: IMAGE(S) OBTAINED DURING PROCEDURE. Fluoroscopy 03/14/18 00:00 IMPRESSION: IMAGE(S) OBTAINED DURING PROCEDURE. Abdomen/Pelvis CT 03/15/18 00:00 IMPRESSION: Post surgical changes, as above with a small amount of free intraperitoneal air in the upper abdomen and right upper quadrant. There is also a small amount of free fluid in this region as well as pneumobilia. Biliary stent in place. A drainage catheter projects over the right mid abdomen. Correlate with surgical history. Small right pleural effusion with adjacent consolidative change. Nonobstructing right renal calculi. Diffuse anasarca. Fatty infiltrative change to the liver. TECHNICAL DOCUMENTATION: Quality ID # 436: Final reports with documentation of one or more dose reduction techniques (e.g., Automated exposure control, adjustment of the mA and/or kV according to patient size, use of iterative reconstruction technique) copyright 2011 [employer]- All Rights Reserved Chest X-Ray 03/15/18 00:00 IMPRESSION: Bilateral pleural effusions and bibasilar opacities. Possible free intraperitoneal air. Assessment & Plan - Diagnosis (1) Gallbladder cancer Is this a current diagnosis for this admission?: Yes Plan: White count elevated, status post stent placement, may be reactive or possible infection, being managed appropriately by surgery. Continue to monitor daily. - Time Time Spent with patient: 15-24 minutes
--- NOTE | 2018-03-16 08:19 | PDOC PROGRESS REPORT ---
Subjective Progress Note for:: 03/16/18 Reason For Visit: GALLBLADDER CANCER Physical Exam Vital Signs: Temp Pulse Resp BP Pulse Ox 97.7 F 106 H 18 101/62 92 03/15/18 23:20 03/16/18 05:17 03/16/18 05:17 03/15/18 23:20 03/15/18 23:20 Intake & Output 03/15/18 03/16/18 03/17/18 06:59 06:59 06:59 Intake Total 1287 1377 Output Total 3960 6416 Balance -8413 -1123 Weight 103.3 kg 98.2 kg General appearance: PRESENT: mild distress Eye exam: PRESENT: EOMI Mouth exam: PRESENT: moist Neck exam: PRESENT: full ROM Cardiovascular exam: PRESENT: tachycardia Pulses: PRESENT: normal carotid pulses, normal radial pulses, normal femoral pulses GI/Abdominal exam: PRESENT: soft - abd soft, non tender debby less drainage wound clean Musculoskeletal exam: PRESENT: ambulatory, full ROM Psychiatric exam: PRESENT: appropriate affect Skin exam: PRESENT: dry Results Laboratory Results: 03/16/18 05:06 03/16/18 05:06 03/16/18 03/16/18 05:06 05:06 WBC 31.5 H* D RBC 4.04 Hgb 11.4 L Hct 33.9 L MCV 84 MCH 28.3 MCHC 33.7 RDW 14.3 H Plt Count 519 H Seg Neutrophils % Not Reportable Lymphocytes % Not Reportable Monocytes % Not Reportable Eosinophils % Not Reportable Basophils % Not Reportable Absolute Neutrophils Not Reportable Absolute Lymphocytes Not Reportable Absolute Monocytes Not Reportable Absolute Eosinophils Not Reportable Absolute Basophils Not Reportable Sodium 132.1 L Potassium 3.7 Chloride 90 L Carbon Dioxide 30 Anion Gap 12 BUN 8 Creatinine 0.56 Est GFR ( Amer) > 60 Est GFR (Non-Af Amer) > 60 Glucose 108 Calcium 8.2 L Total Bilirubin 1.0 AST 26 ALT 39 Alkaline Phosphatase 237 H Total Protein 5.1 L Albumin 2.7 L Impressions: KUB X-Ray 03/11/18 00:00 IMPRESSION: There are mildly dilated small bowel loops throughout the left abdomen, developing ileus or obstruction possible. Hepatobiliary Scan Nuclear Medicine 03/12/18 00:00 IMPRESSION: Bile leak in the gallbladder fossa. Catheter Placement 03/14/18 00:00 IMPRESSION: IMAGE(S) OBTAINED DURING PROCEDURE. Fluoroscopy 03/14/18 00:00 IMPRESSION: IMAGE(S) OBTAINED DURING PROCEDURE. Abdomen/Pelvis CT 03/15/18 00:00 IMPRESSION: Post surgical changes, as above with a small amount of free intraperitoneal air in the upper abdomen and right upper quadrant. There is also a small amount of free fluid in this region as well as pneumobilia. Biliary stent in place. A drainage catheter projects over the right mid abdomen. Correlate with surgical history. Small right pleural effusion with adjacent consolidative change. Nonobstructing right renal calculi. Diffuse anasarca. Fatty infiltrative change to the liver. TECHNICAL DOCUMENTATION: Quality ID # 436: Final reports with documentation of one or more dose reduction techniques (e.g., Automated exposure control, adjustment of the mA and/or kV according to patient size, use of iterative reconstruction technique) copyright 2011 [employer]- All Rights Reserved Chest X-Ray 03/15/18 00:00 IMPRESSION: Bilateral pleural effusions and bibasilar opacities. Possible free intraperitoneal air. Assessment & Plan - Plan Summary Plan Summary: pt was sl sob last pm cxr obtained,showing volume loss and small amt of free air then ct obtained of abd showing no evidence of a oral contrast leak small amt of free fluid above liver and post op changes with small amt of free air pt felt better with less anxiety after she started passing stool yesterday evening pt is s/p ercp about 36hrs ago to control bile leak this am her wbc 31k. according to she is more comfortable, no sleeping plan- will cont with resp rx will restart emperic abx vanco/flagyl check lipase, s/p ercp if no significnat improvment in wbc tomorrow may consider per drainage of the small amt of residual bile above rt lobe of liver
[2018-03-16] MEDS ORDERED: ACETAMINOPHEN 325 MG TABLET PO PRN ×2 (09:36→10:02)
[2018-03-16] MEDS: FAMOTIDINE INJ/PF 20 MG/2 ML SDV IV SCH ×2 (09:39→21:12)
[2018-03-16] MEDS: FUROSEMIDE INJ/PF 20 MG/2 ML SDV IV SCH ×2 (09:40→21:12)
[2018-03-16] MEDS ORDERED: NORMAL SALINE 1000 ML 1,000 ML IV ONE (09:57)
[2018-03-16] MEDS ORDERED: NORMAL SALINE 1000 ML 1,000 ML IV PRN (09:57)
[2018-03-16] MEDS: LACTULOSE SYRUP 20 GM/30 ML UDCUP NG SCH ×2 (11:27→17:12)
[2018-03-16] MEDS: VANCOMYCIN HCL 1,250 MG in DEXTROSE 5%-WATER 250 ML IV SCH ×2 (11:27→18:39)
--- NOTE | 2018-03-16 12:41 | EKG REPORT ---
SEVERITY:- ABNORMAL ECG - SINUS TACHYCARDIA VENTRICULAR PREMATURE COMPLEX CONSIDER POSTERIOR INFARCT BORDERLINE T ABNORMALITIES, DIFFUSE LEADS : Confirmed by: Madison Abbasi 16-Mar-2018 12:41:03
[2018-03-16 13:01] LABS: PATH REVIEW PATHOLOGIST REVIEWED
[2018-03-16] MEDS: BUDESONIDE/FORMOTEROL 160-4.5 MCG 60 PUFF/6 GM MDI IH SCH ×2 (13:27→21:12)
[2018-03-16 13:58] LABS: APPEARANCE,URINE SLIGHTLY-CLOUDY; BILIRUBIN,URINE NEGATIVE (NEGATIVE); COLOR,URINE YELLOW; GLUCOSE, URINE NEGATIVE (NEGATIVE); KETONES,URINE NEGATIVE (NEGATIVE); LEUKOCYTE ESTERASE,URINE NEGATIVE (NEGATIVE); NITRITE,URINE NEGATIVE (NEGATIVE); PROTEIN,URINE NEGATIVE (NEGATIVE); UROBILINOGEN,URINE NEGATIVE mg/dL (<2.0)
--- NOTE | 2018-03-16 14:05 | PDOC CONSULTATION ---
Consultation Consult Date: 03/16/18 Attending physician:: MARLENI DESHPANDE Consult reason:: RESPIRATORY DISTRESS. FEVER. TACHYCARDIA. History of Present Illness Admission Date/PCP: 03/06/18 06:35 JACKIE DUMONT MD History of Present Illness: CARMEN RUSSO is a 63 year old female patient who was admitted on 03/01/2018 for cholecystectomy. An initial exploratory laparoscopy showed evidence of a gal lbladder mass with the biopsy showing moderately differentiated adenocarcinoma. She then had a radical cholecystectomy performed on 03/06/2018 again confirming adenocarcinoma metastasizing to the omentum. Preoperatively, the patient received Ciprofloxacin. A JASKARAN drain was inserted and this has been draining significant amount of bile since her surgery. Postoperatively, the patient was placed on scheduled Ancef and Flagyl IV. She had the HIDA scan on 03/12/2018 that showed bile leakage into the gallbladder fossa. 03/14/2018 The patient underwent an ERCP with sphincterotomy, balloon sludge extraction and CBD stent placement. This procedure was done by Dr. Orta for bile leakage into gallbladder fossa and evidence of small amount of common bile duct sludge. Within 24 hours of her ERCP, the patient developed shortness of breath, tachycardia, and supplemental O2 requirements. CXR showed b/l pleural effusions and possible free air intraperitoneal air. Follow up CT Abd/Pelvis showed small amount of free air in RUQ and pneumobilia, small amount of free fluid surrounding the liver and in RUQ, and a small R pleural effusion. This morning (03/16/2018) the patient remains tachycardic and requiring supplemental O2. She is now febrile (101.2) and becoming hypotensive, SBP dropping from 130s to 100s. WBC increased from 13.3-->31. The patient was started on Vancomycin and Flagyl by surgery. Hospitalist was consulted for medical management. Past Medical History Cardiac Medical History: Reports: Hypertension - ON MEDS Denies: Coronary Artery Disease, Myocardial Infarction Pulmonary Medical History: Reports: Asthma, Bronchitis - HX OF , Chronic Obstructive Pulmonary Disease (COPD) - INHALER, NEBULIZER, Pneumonia - 08/21 Neurological Medical History: Reports: Seizures - A CHILD X 1, NO MEDS Endocrine Medical History: Reports: Diabetes Mellitus Type 2 - borderline Malignancy Medical History: Reports: Other - Gallbladder cancer Musculoskeltal Medical History: Denies: Arthritis Hematology: Denies: Anemia Past Surgical History Past Surgical History: Reports: Orthopedic Surgery - left foot/ titanium plates placed, Tonsillectomy, Other - Radical cholecystectomy, liver resection, periportal lymphadenectomy Denies: Hysterectomy Social History Information Source: Patient Lives with: Spouse/Significant other Smoking Status: Former Smoker Cigarettes Packs Per Day: 1 Number of Years Smokin Frequency of Alcohol Use: None Drugs: None Hx Prescription Drug Abuse: No - Advance Directive Resuscitation Status: Full Code Family History Family History: Reviewed & Not Pertinent Parental Family History Reviewed: Yes Children Family History Reviewed: NA Sibling(s) Family History Reviewed.: NA Medication/Allergy Home Medications: Albuterol Sulfate [Albuterol Sulfate 2.5mg/3 mL] 2.5 mg IH Q6HP PRN 01/14/12 Amlodipine Besylate [Norvasc 5 mg Tablet] 5 mg PO DAILY 01/14/12 Budesonide/Formoterol Fumarate [Symbicort HFA 160-4.5 mcg Inhaler 6 gm] 2 puff IH Q12 01/14/12 Irbesartan/Hydrochlorothiazide [Avalide 300-12.5 Mg Tablet] 1 each PO DAILY 01/14/12 Fenofibric Acid (Choline) [Fenofibric Acid] 135 mg PO WSUPPER 03/06/18 Hydrocodone Bit/Acetaminophen [Hydrocodon-Acetaminophn 10-325] 1 each PO Q6HP PRN MDD FILLED 03/01 FOR 7 DAYS 03/06/18 Metformin HCl [Metformin HCl ER] 500 mg PO BIDBS 03/06/18 Tiotropium [place] [Spiriva Respimat] 2 puff IH DAILY 03/06/18 Allergies/Adverse Reactions: Penicillins Adverse Reaction (Severe, Verified 03/06/18 07:20) WHEEZE Review of Systems ROS unobtainable: Due to mental status Physical Exam Vital Signs: Temp Pulse Resp BP Pulse Ox 97.7 F 106 H 16 101/62 94 03/15/18 23:20 03/16/18 05:17 03/16/18 08:00 03/15/18 23:20 03/16/18 08:00 Intake & Output 03/15/18 03/16/18 03/17/18 06:59 06:59 06:59 Intake Total 1287 1377 100 Output Total 3960 2500 Balance -9216 -1126 100 Weight 103.3 kg 98.2 kg General appearance: PRESENT: obese Eye exam: PRESENT: conjunctiva pink, PERRLA Mouth exam: PRESENT: moist, tongue midline Neck exam: PRESENT: full ROM Respiratory exam: PRESENT: clear to auscultation christian, symmetrical, tachypnea Cardiovascular exam: PRESENT: +S1, +S2, tachycardia Pulses: PRESENT: normal radial pulses, normal dorsalis pedis pul Vascular exam: PRESENT: pallor GI/Abdominal exam: PRESENT: soft, tenderness - surgical site stapled. looks clean, dry, intact Rectal exam: PRESENT: deferred Extremities exam: PRESENT: pedal edema - VERY MILD. ABSENT: joint swelling Musculoskeletal exam: PRESENT: normal inspection Neurological exam: ABSENT: awake - ASLEEP BUT AROUSABLE Skin exam: PRESENT: dry, intact, pallor Results Laboratory Results: 03/16/18 05:06 03/16/18 05:06 03/16/18 03/16/18 03/16/18 05:06 05:06 05:06 WBC 31.5 H* D RBC 4.04 Hgb 11.4 L Hct 33.9 L MCV 84 MCH 28.3 MCHC 33.7 RDW 14.3 H Plt Count 519 H Seg Neutrophils % Not Reportable Lymphocytes % Not Reportable Monocytes % Not Reportable Eosinophils % Not Reportable Basophils % Not Reportable Absolute Neutrophils Not Reportable Absolute Lymphocytes Not Reportable Absolute Monocytes Not Reportable Absolute Eosinophils Not Reportable Absolute Basophils Not Reportable Sodium 132.1 L Potassium 3.7 Chloride 90 L Carbon Dioxide 30 Anion Gap 12 BUN 8 Creatinine 0.56 Est GFR ( Amer) > 60 Est GFR (Non-Af Amer) > 60 Glucose 108 Calcium 8.2 L Total Bilirubin 1.0 AST 26 ALT 39 Alkaline Phosphatase 237 H Total Protein 5.1 L Albumin 2.7 L Lipase 25.6 Impressions: KUB X-Ray 03/11/18 00:00 IMPRESSION: There are mildly dilated small bowel loops throughout the left abdomen, developing ileus or obstruction possible. Hepatobiliary Scan Nuclear Medicine 03/12/18 00:00 IMPRESSION: Bile leak in the gallbladder fossa. Catheter Placement 03/14/18 00:00 IMPRESSION: IMAGE(S) OBTAINED DURING PROCEDURE. Fluoroscopy 03/14/18 00:00 IMPRESSION: IMAGE(S) OBTAINED DURING PROCEDURE. Abdomen/Pelvis CT 03/15/18 00:00 IMPRESSION: Post surgical changes, as above with a small amount of free intraperitoneal air in the upper abdomen and right upper quadrant. There is also a small amount of free fluid in this region as well as pneumobilia. Biliary stent in place. A drainage catheter projects over the right mid abdomen. Correlate with surgical history. Small right pleural effusion with adjacent consolidative change. Nonobstructing right renal calculi. Diffuse anasarca. Fatty infiltrative change to the liver. TECHNICAL DOCUMENTATION: Quality ID # 436: Final reports with documentation of one or more dose reduction techniques (e.g., Automated exposure control, adjustment of the mA and/or kV according to patient size, use of iterative reconstruction technique) copyright 2011 [employer]- All Rights Reserved Chest X-Ray 03/15/18 00:00 IMPRESSION: Bilateral pleural effusions and bibasilar opacities. Possible free intraperitoneal air. Status: Imported from PACS Assessment & Plan - Diagnosis (1) Sepsis Is this a current diagnosis for this admission?: Yes Plan: Sepsis with an unknown source Evidence by tachycardia (120s), leukocyosis (WBC 31), fever (101.2), tachypnea (RR 24-30) No evidence of PNA, blood cultures pending Urinalysis ordered Lactate pending Surgical incision is C/D/I JASKARAN draining cloudy yellow fluid Vancomycin and Flagyl IV started today Previously received Cipro pre-operatively before Ex Lap, postoperatively received Ancef and Flagyl 03/06-03/13 If patient continues to decompensate, may need surgery to drain intraabdominal fluid (2) Gallbladder cancer Is this a current diagnosis for this admission?: Yes Plan: Management per oncology Followed by Dr. Youngblood
[2018-03-17] MEDS: METRONIDAZOLE 500 MG/NS RTU 500 MG/100 ML RTUPB IV SCH ×4 (00:52→18:17)
[2018-03-17] MEDS: METOCLOPRAMIDE HCL INJ/PF 10 MG/2 ML SDV IV SCH ×4 (00:53→18:17)
[2018-03-17] MEDS: MORPHINE SULFATE 10 MG/ML INJ IV PRN ×3 (01:01→15:19)
[2018-03-17] MEDS: LORAZEPAM INJ 2 MG/1 ML VIAL IV PRN ×2 (01:02→18:17)
[2018-03-17] MEDS: INSULIN REG, HUMAN 100 UNIT/ML 3 ML VIAL (PYX) SUBCUT SCH ×4 (01:08→18:07)
[2018-03-17] MEDS: ALBUTEROL SULFATE 0.083% NEB 2.5 MG/3 ML AMPUL NEB SCH ×2 (01:56→08:42)
[2018-03-17] MEDS: VANCOMYCIN HCL 1,250 MG in DEXTROSE 5%-WATER 250 ML IV SCH (03:36)
[2018-03-17 05:01] LABS: ABSOLUTE BASOPHILS # (AUTO) 0.1 10^3/uL (0.0-0.2); ABSOLUTE LYMPHOCYTES (AUTO) 1.9 10^3/uL (0.5-4.7); ABSOLUTE MONOCYTES (AUTO) 1.9 10^3/uL (0.1-1.4); ABSOLUTE NEUT (AUTO) 26.9 10^3/uL (1.7-8.2); BASOPHILS % (AUTO) 0.2 % (0-2); EOSINOPHILS % (AUTO) 0.1 % (0-6); HEMOGLOBIN 10.1 g/dL (12.0-15.5); LYMPHOCYTES % (AUTO) 6.3 % (13-45); MEAN CORPUSCULAR HEMOGLOBIN 28.1 pg (27.0-33.4); MEAN CORPUSCULAR HGB CONC 33.7 g/dL (32.0-36.0); MEAN CORPUSCULAR VOLUME 83 fl (80-97); MONOCYTES % (AUTO) 6.1 % (3-13); PLATELET COUNT 457 10^3/uL (150-450); RED BLOOD COUNT 3.61 10^6/uL (3.72-5.28); RED CELL DISTRIBUTION WIDTH 14.5 % (11.5-14.0); SEGMENTED NEUTROPHILS % (AUTO) 87.3 % (42-78); TOTAL CELLS COUNTED % (AUTO) 100 %
[2018-03-17 05:16] LABS: ALANINE AMINOTRANSFERASE 32 U/L (9-52); ALBUMIN 2.4 g/dL (3.5-5.0); ALKALINE PHOSPHATASE 187 U/L (38-126); ANION GAP 10 (5-19); ASPARTATE AMINO TRANSFERASE 23 U/L (14-36); BILIRUBIN,DIRECT 0.5 mg/dL (0.0-0.4); BILIRUBIN,TOTAL 0.8 mg/dL (0.2-1.3); BLOOD UREA NITROGEN 9 mg/dL (7-20); CALCIUM 7.9 mg/dL (8.4-10.2); CARBON DIOXIDE 27 mmol/L (22-30); CHLORIDE 95 mmol/L (98-107); GLUCOSE 132 mg/dL (75-110); POTASSIUM 3.1 mmol/L (3.6-5.0); SODIUM 132.2 mmol/L (137-145); TOTAL PROTEIN 4.7 g/dL (6.3-8.2)
[2018-03-17 06:06] LABS: WHITE BLOOD COUNT 30.8 10^3/uL (4.0-10.5)
[2018-03-17] MEDS: TIOTROPIUM BROMIDE DPI 5 CAP/KIT (18 MCG/CAP) IH SCH (06:37)
[2018-03-17] MEDS ORDERED: VANCOMYCIN HCL 1,250 MG in DEXTROSE 5%-WATER 250 ML IV SCH ×2 (10:00→22:00)
[2018-03-17] MEDS ORDERED: POTASSI CL 20 MEQ/50 ML RIDER 20 MEQ/50 ML RTUPB IV SCH (10:25)
[2018-03-17 10:40] LABS: VANCOMYCIN,TROUGH 14.6 ug/mL (5.0-20.0)
[2018-03-17] MEDS: FUROSEMIDE INJ/PF 20 MG/2 ML SDV IV SCH ×2 (11:00→22:32)
[2018-03-17] MEDS: FAMOTIDINE INJ/PF 20 MG/2 ML SDV IV SCH ×2 (11:00→22:32)
[2018-03-17] MEDS: LACTULOSE SYRUP 20 GM/30 ML UDCUP NG SCH ×2 (11:00→18:07)
[2018-03-17] MEDS ORDERED: POTASSIUM CHLORIDE 10 MEQ CAPSULE.ER PO ONE (11:30)
[2018-03-17] MEDS: BUDESONIDE/FORMOTEROL 160-4.5 MCG 60 PUFF/6 GM MDI IH SCH ×2 (12:26→22:32)
--- NOTE | 2018-03-17 13:05 | PDOC PROGRESS REPORT ---
Subjective Progress Note for:: 03/17/18 Subjective:: Patient states her pain is well controlled with current regimen. Her bowels are moving well. She complains of Tightness in her lungs. She believes that the Duonebs are too much on top of her home inhalers. Reason For Visit: GALLBLADDER CANCER Physical Exam Vital Signs: Temp Pulse Resp BP Pulse Ox 98.5 F 128 H 20 121/63 95 03/17/18 07:43 03/17/18 08:42 03/17/18 08:42 03/17/18 07:43 03/17/18 08:42 Intake & Output 03/16/18 03/17/18 03/18/18 06:59 06:59 06:59 Intake Total 1377 4354 362 Output Total 2500 2540 Balance -1123 1814 362 Weight 98.2 kg 97.6 kg General appearance: PRESENT: well-developed, well-nourished Head exam: PRESENT: normocephalic Respiratory exam: PRESENT: unlabored Extremities exam: ABSENT: pedal edema Neurological exam: PRESENT: alert, awake Psychiatric exam: PRESENT: appropriate affect Skin exam: PRESENT: normal color Results Laboratory Results: 03/17/18 04:40 03/17/18 04:40 03/16/18 03/17/18 03/17/18 12:55 04:40 04:40 WBC 30.8 H* RBC 3.61 L Hgb 10.1 L Hct 30.0 L MCV 83 MCH 28.1 MCHC 33.7 RDW 14.5 H Plt Count 457 H Seg Neutrophils % 87.3 H Lymphocytes % 6.3 L Monocytes % 6.1 Eosinophils % 0.1 Basophils % 0.2 Absolute Neutrophils 26.9 H Absolute Lymphocytes 1.9 Absolute Monocytes 1.9 H Absolute Eosinophils 0.0 Absolute Basophils 0.1 Sodium 132.2 L Potassium 3.1 L Chloride 95 L Carbon Dioxide 27 Anion Gap 10 BUN 9 Creatinine 0.49 L Est GFR ( Amer) > 60 Est GFR (Non-Af Amer) > 60 Glucose 132 H Calcium 7.9 L Total Bilirubin 0.8 AST 23 ALT 32 Alkaline Phosphatase 187 H Total Protein 4.7 L Albumin 2.4 L Urine Color YELLOW Urine Appearance SLIGHTLY-CLOUDY Urine pH 6.0 Ur Specific [place] 1.010 Urine Protein NEGATIVE Urine Glucose (UA) NEGATIVE Urine Ketones NEGATIVE Urine Blood NEGATIVE Urine Nitrite NEGATIVE Ur Leukocyte Esterase NEGATIVE Urine WBC (Auto) 3 03/16/18 05:06 NT-Pro-B Natriuret Pep 513 Impressions: KUB X-Ray 03/11/18 00:00 IMPRESSION: There are mildly dilated small bowel loops throughout the left abdomen, developing ileus or obstruction possible. Hepatobiliary Scan Nuclear Medicine 03/12/18 00:00 IMPRESSION: Bile leak in the gallbladder fossa. Catheter Placement 03/14/18 00:00 IMPRESSION: IMAGE(S) OBTAINED DURING PROCEDURE. Fluoroscopy 03/14/18 00:00 IMPRESSION: IMAGE(S) OBTAINED DURING PROCEDURE. Abdomen/Pelvis CT 03/15/18 00:00 IMPRESSION: Post surgical changes, as above with a small amount of free intraperitoneal air in the upper abdomen and right upper quadrant. There is also a small amount of free fluid in this region as well as pneumobilia. Biliary stent in place. A drainage catheter projects over the right mid abdomen. Correlate with surgical history. Small right pleural effusion with adjacent consolidative change. Nonobstructing right renal calculi. Diffuse anasarca. Fatty infiltrative change to the liver. TECHNICAL DOCUMENTATION: Quality ID # 436: Final reports with documentation of one or more dose reduction techniques (e.g., Automated exposure control, adjustment of the mA and/or kV according to patient size, use of iterative reconstruction technique) copyright 2011 [employer]- All Rights Reserved Chest X-Ray 03/15/18 00:00 IMPRESSION: Bilateral pleural effusions and bibasilar opacities. Possible free intraperitoneal air. Assessment & Plan - Diagnosis (1) Gallbladder cancer Is this a current diagnosis for this admission?: Yes Plan: s/p Surgery. Still recovering. Now with evidence of infection. Managed by Surgery. Will continue to follow. (2) Anemia Qualifiers: Other causes of anemia: chronic disease, other Is this a current diagnosis for this admission?: Yes Plan: This has remained stable. No indication for transfusion at this time. (3) Leukocytosis Qualifiers: Leukocytosis type: unspecified Qualified Code(s): D72.829 - Elevated white blood cell count, unspecified Is this a current diagnosis for this admission?: Yes Plan: with thrombocytosis. Most likely reactive to infection. Will contiue to monitor.
[2018-03-17] MEDS: LEVALBUTEROL HCL NEB 0.63 MG/3 ML AMPUL NEB SCH ×2 (14:08→21:03)
--- NOTE | 2018-03-17 16:35 | PDOC PROGRESS REPORT ---
Subjective Progress Note for:: 03/17/18 Subjective:: 63 y.o. F with HTN, asthma and COPD admitted to [facility] 03/01/2018 for c holecystectomy to remove cancerous gallbladder. Within days of surgery there was a large amount of output noted in her JASKARAN drain. The patient underwent an ERCP on 03/14/2018 with CBD stent placement. Within 24hrs she began developing signs of sepsis and the hospitalist service was consulted for medical management. Follow up CT Abd/Pelvis showed small amount of free air in RUQ and pneumobilia, small amount of free fluid surrounding the liver and in RUQ, and a small R pleural effusion. The patient was seen this morning, she is resting comfortably in bedside recliner. The patient endorses mild dyspnea on exertion. The patient still requires 3-4LNC to maintain SPO2>88%. CXR shows b/l pleural effusions. No evidence of PNA. IVF has been d/c'd. The patient has a history of COPD and endorses 'long' smoking history of 1.5 PPD. Reports she quit approx. 15 years ago. Plan to continue iv antibiotics, nebuilizers and long acting inhalers. closely monitor for worsening sepsis Reason For Visit: GALLBLADDER CANCER Physical Exam Vital Signs: Temp Pulse Resp BP Pulse Ox 97.8 F 111 H 20 121/75 95 03/17/18 12:59 03/17/18 14:08 03/17/18 14:08 03/17/18 12:59 03/17/18 14:08 Intake & Output 03/16/18 03/17/18 03/18/18 06:59 06:59 06:59 Intake Total 1377 4354 462 Output Total 2500 2540 Balance -1123 1814 462 Weight 98.2 kg 97.6 kg General appearance: PRESENT: obese Eye exam: PRESENT: conjunctiva pale, PERRLA Mouth exam: PRESENT: tongue midline Teeth exam: ABSENT: poor dentation Neck exam: PRESENT: full ROM Respiratory exam: PRESENT: clear to auscultation christian, decreased breath sounds - in b/l bases, symmetrical, unlabored, other - REQUIRING SUPPLEMENTAL O2 VIA NASAL CANNULA Cardiovascular exam: PRESENT: +S1, +S2, tachycardia Pulses: PRESENT: normal radial pulses GI/Abdominal exam: PRESENT: soft, tenderness. ABSENT: distended Rectal exam: PRESENT: deferred Extremities exam: PRESENT: full ROM Musculoskeletal exam: PRESENT: ambulatory - with assistance, full ROM Neurological exam: PRESENT: alert, awake, oriented to person, oriented to place, oriented to time, oriented to situation Psychiatric exam: PRESENT: appropriate affect Skin exam: PRESENT: dry, intact, pallor, other - SURGICAL SITE STAPLED - C/D/I. JASKARAN DRAINING YELLOW OUTPUT Results Laboratory Results: 03/17/18 04:40 03/17/18 04:40 03/17/18 03/17/18 04:40 04:40 WBC 30.8 H* RBC 3.61 L Hgb 10.1 L Hct 30.0 L MCV 83 MCH 28.1 MCHC 33.7 RDW 14.5 H Plt Count 457 H Seg Neutrophils % 87.3 H Lymphocytes % 6.3 L Monocytes % 6.1 Eosinophils % 0.1 Basophils % 0.2 Absolute Neutrophils 26.9 H Absolute Lymphocytes 1.9 Absolute Monocytes 1.9 H Absolute Eosinophils 0.0 Absolute Basophils 0.1 Sodium 132.2 L Potassium 3.1 L Chloride 95 L Carbon Dioxide 27 Anion Gap 10 BUN 9 Creatinine 0.49 L Est GFR ( Amer) > 60 Est GFR (Non-Af Amer) > 60 Glucose 132 H Calcium 7.9 L Total Bilirubin 0.8 AST 23 ALT 32 Alkaline Phosphatase 187 H Total Protein 4.7 L Albumin 2.4 L 03/16/18 05:06 NT-Pro-B Natriuret Pep 513 Impressions: KUB X-Ray 03/11/18 00:00 IMPRESSION: There are mildly dilated small bowel loops throughout the left abdomen, developing ileus or obstruction possible. Hepatobiliary Scan Nuclear Medicine 03/12/18 00:00 IMPRESSION: Bile leak in the gallbladder fossa. Catheter Placement 03/14/18 00:00 IMPRESSION: IMAGE(S) OBTAINED DURING PROCEDURE. Fluoroscopy 03/14/18 00:00 IMPRESSION: IMAGE(S) OBTAINED DURING PROCEDURE. Abdomen/Pelvis CT 03/15/18 00:00 IMPRESSION: Post surgical changes, as above with a small amount of free intraperitoneal air in the upper abdomen and right upper quadrant. There is also a small amount of free fluid in this region as well as pneumobilia. Biliary stent in place. A drainage catheter projects over the right mid abdomen. Correlate with surgical history. Small right pleural effusion with adjacent consolidative change. Nonobstructing right renal calculi. Diffuse anasarca. Fatty infiltrative change to the liver. TECHNICAL DOCUMENTATION: Quality ID # 436: Final reports with documentation of one or more dose reduction techniques (e.g., Automated exposure control, adjustment of the mA and/or kV according to patient size, use of iterative reconstruction technique) copyright 2011 [employer]- All Rights Reserved Chest X-Ray 03/15/18 00:00 IMPRESSION: Bilateral pleural effusions and bibasilar opacities. Possible free intraperitoneal air. Status: Imported from PACS Assessment & Plan - Diagnosis (1) Sepsis Is this a current diagnosis for this admission?: Yes Plan: Unchanged Sepsis with an unknown source Evidence by tachycardia (120s), leukocyosis (WBC 31), fever (101.2), tachypnea (RR 24-30) No evidence of PNA, blood cultures pending Urinalysis negative Lactate 1.3 Surgical incision is C/D/I JASKARAN draining cloudy yellow fluid Continue Vancomycin and Flagyl IV Previously received Cipro pre-operatively before Ex Lap, postoperatively received Ancef and Flagyl 03/06-03/13 If patient continues to decompensate, may need surgery to drain intraabdominal fluid (2) Hypoxia Is this a current diagnosis for this admission?: Yes Plan: No change b/ pleural effusions of 03/16 CXR Diuresed with lasix History of COPD Home dose spiriva and symbicort Scheduled and PRN nebulizer treatments Supplemental O2 via nasal cannula for SPO2>88% wean as tolerated Encourage ambulation and use of IS No wheezing on exam, do not feel the patient requires systemic steroids at this time (3) Gallbladder cancer Is this a current diagnosis for this admission?: Yes Plan: Management per oncology Followed by Dr. Youngblood - Time Time Spent with patient: 15-24 minutes Medications reviewed and adjusted accordingly: Yes Anticipated discharge: Home - Inpatient Certification Based on my medical assessment, after consideration of the patient's comorbidities, presenting symptoms, or acuity I expect that the services needed warrant INPATIENT care.: Yes I certify that my determination is in accordance with my understanding of Medicare's requirements for reasonable and necessary INPATIENT services [42 CFR 412.3e].: Yes Medical Necessity: Need for IV Antibiotics, Need for Surgery, Risk of Complication if Not Cared For in Hospital - Plan Summary Plan Summary: CONTINUE ANTIBIOTICS. DAILY CBC. MONITOR CLOSELY FOR SIGNS OF WORSENING SEPSIS.
--- NOTE | 2018-03-17 18:24 | RADIOLOGY REPORT (SQ) ---
EXAM DESCRIPTION: CHEST SINGLE VIEW COMPLETED DATE/TIME: 03/17/2018 6:03 pm REASON FOR STUDY: dyspnea COMPARISON: 03/15/2018 TECHNIQUE: Single frontal radiographic view of the chest acquired. NUMBER OF VIEWS: One view. LIMITATIONS: None. FINDINGS: LUNGS AND PLEURA: No pneumothorax. Significant interval decrease in bilateral pleural effu sions, minimal residual basilar subsegmental atelectasis-fluid.No consolidation or significant pleura l effusion. MEDIASTINUM AND HILAR STRUCTURES: Stable. HEART AND VASCULAR STRUCTURES: Stable. BONES: No acute findings. HARDWARE: None in the chest. OTHER: No other significant finding. IMPRESSION: Significant interval decrease in bilateral pleural effusions, minimal residual basilar s ubsegmental atelectasis-fluid. TECHNICAL DOCUMENTATION: JOB ID: [id number] [place]-[id number] 2010 [employer]- All Rights Reserved Reading location - IP/workstation name: [email or web address]
--- NOTE | 2018-03-17 20:09 | EKG REPORT ---
SEVERITY:- BORDERLINE ECG - SINUS TACHYCARDIA BORDERLINE T ABNORMALITIES, DIFFUSE LEADS BORDERLINE Q INF LEADS : Confirmed by: Madison Abbasi 17-Mar-2018 20:08:32
[2018-03-18] MEDS: METOCLOPRAMIDE HCL INJ/PF 10 MG/2 ML SDV IV SCH ×2 (01:15→06:12)
[2018-03-18] MEDS: METRONIDAZOLE 500 MG/NS RTU 500 MG/100 ML RTUPB IV SCH ×4 (01:16→21:58)
[2018-03-18] MEDS: INSULIN REG, HUMAN 100 UNIT/ML 3 ML VIAL (PYX) SUBCUT SCH ×4 (01:16→19:26)
[2018-03-18] MEDS: LORAZEPAM INJ 2 MG/1 ML VIAL IV PRN (01:16)
[2018-03-18] MEDS: LEVALBUTEROL HCL NEB 0.63 MG/3 ML AMPUL NEB SCH ×4 (02:01→20:35)
[2018-03-18 05:06] LABS: HEMATOCRIT 28.5 % (36.0-47.0); HEMOGLOBIN 9.6 g/dL (12.0-15.5); MEAN CORPUSCULAR HEMOGLOBIN 28.2 pg (27.0-33.4); MEAN CORPUSCULAR HGB CONC 33.6 g/dL (32.0-36.0); MEAN CORPUSCULAR VOLUME 84 fl (80-97); PLATELET COUNT 446 10^3/uL (150-450); RED CELL DISTRIBUTION WIDTH 14.3 % (11.5-14.0); WHITE BLOOD COUNT 21.2 10^3/uL (4.0-10.5)
[2018-03-18 05:22] LABS: ALANINE AMINOTRANSFERASE 43 U/L (9-52); ALBUMIN 2.2 g/dL (3.5-5.0); ALKALINE PHOSPHATASE 167 U/L (38-126); ANION GAP 8 (5-19); ASPARTATE AMINO TRANSFERASE 20 U/L (14-36); BILIRUBIN,DIRECT 0.5 mg/dL (0.0-0.4); BILIRUBIN,TOTAL 0.7 mg/dL (0.2-1.3); BLOOD UREA NITROGEN 5 mg/dL (7-20); CALCIUM 7.9 mg/dL (8.4-10.2); CARBON DIOXIDE 31 mmol/L (22-30); CHLORIDE 94 mmol/L (98-107); GLUCOSE 95 mg/dL (75-110); SODIUM 133.2 mmol/L (137-145); TOTAL PROTEIN 4.4 g/dL (6.3-8.2)
[2018-03-18 05:30] LABS: ABSOLUTE LYMPHOCYTES# (MANUAL) 1.1 10^3/uL (0.5-4.7); ABSOLUTE MONOCYTES # (MANUAL) 1.3 10^3/uL (0.1-1.4); ABSOLUTE NEUTROPHILS# (MANUAL) 18.4 10^3/uL (1.7-8.2); BASOPHILS % (MANUAL) 0 % (0-2); EOSINOPHILS % (MANUAL) 2 % (0-6); LYMPHOCYTES % (MANUAL) 5 % (13-45); MONOCYTES % (MANUAL) 6 % (3-13); POLYCHROMASIA 1+; SEGMENTED NEUTROPHILS % (MAN) 87 % (42-78); TOTAL CELLS COUNTED 100
[2018-03-18 05:31] LABS: ANISOCYTOSIS 1+; PLATELET COMMENT ADEQUATE
[2018-03-18 05:42] LABS: POTASSIUM 2.8 mmol/L (3.6-5.0)
[2018-03-18] MEDS ORDERED: POTASSIUM CHLORIDE 20 MEQ/15 ML UDCUP PO ONE ×3 (06:00→13:00)
[2018-03-18] MEDS: TIOTROPIUM BROMIDE DPI 5 CAP/KIT (18 MCG/CAP) IH SCH (06:13)
[2018-03-18] MEDS: POTASSIUM CHLORIDE 20 MEQ/50 ML RTU IV SCH ×2 (06:53→21:59)
[2018-03-18] MEDS ORDERED: LACTULOSE SYRUP 20 GM/30 ML UDCUP NG PRN (07:55)
[2018-03-18] MEDS: MORPHINE SULFATE 10 MG/ML INJ IV PRN ×3 (08:14→20:49)
[2018-03-18] MEDS ORDERED: OXYCODONE-ACETAMINOPHEN 5-325 MG TABLET PO PRN (08:59)
--- NOTE | 2018-03-18 09:12 | PDOC PROGRESS REPORT ---
Subjective Progress Note for:: 03/18/18 Reason For Visit: GALLBLADDER CANCER Physical Exam Vital Signs: Temp Pulse Resp BP Pulse Ox 98.1 F 112 H 17 117/78 96 03/18/18 07:27 03/18/18 07:27 03/18/18 07:27 03/18/18 07:27 03/18/18 07:27 Intake & Output 03/17/18 03/18/18 03/19/18 06:59 06:59 06:59 Intake Total 4354 2072 125 Output Total 2540 3120 Balance 1814 -1048 125 Weight 97.6 kg 97.6 kg General appearance: PRESENT: no acute distress Head exam: PRESENT: atraumatic Eye exam: PRESENT: EOMI Respiratory exam: PRESENT: clear to auscultation christian GI/Abdominal exam: PRESENT: soft Extremities exam: PRESENT: full ROM Musculoskeletal exam: PRESENT: full ROM Neurological exam: PRESENT: oriented to person, oriented to place, oriented to time, oriented to situation Skin exam: PRESENT: dry Results Laboratory Results: 03/18/18 04:45 03/18/18 04:45 03/18/18 03/18/18 04:45 04:45 WBC 21.2 H RBC 3.40 L Hgb 9.6 L Hct 28.5 L MCV 84 MCH 28.2 MCHC 33.6 RDW 14.3 H Plt Count 446 Seg Neutrophils % Not Reportable Lymphocytes % Not Reportable Monocytes % Not Reportable Eosinophils % Not Reportable Basophils % Not Reportable Absolute Neutrophils Not Reportable Absolute Lymphocytes Not Reportable Absolute Monocytes Not Reportable Absolute Eosinophils Not Reportable Absolute Basophils Not Reportable Sodium 133.2 L Potassium 2.8 L* Chloride 94 L Carbon Dioxide 31 H Anion Gap 8 BUN 5 L Creatinine 0.46 L Est GFR ( Amer) > 60 Est GFR (Non-Af Amer) > 60 Glucose 95 Calcium 7.9 L Total Bilirubin 0.7 AST 20 ALT 43 Alkaline Phosphatase 167 H Total Protein 4.4 L Albumin 2.2 L 03/16/18 03/18/18 05:06 04:45 Troponin I < 0.012 NT-Pro-B Natriuret Pep 513 Impressions: KUB X-Ray 03/11/18 00:00 IMPRESSION: There are mildly dilated small bowel loops throughout the left abdomen, developing ileus or obstruction possible. Hepatobiliary Scan Nuclear Medicine 03/12/18 00:00 IMPRESSION: Bile leak in the gallbladder fossa. Catheter Placement 03/14/18 00:00 IMPRESSION: IMAGE(S) OBTAINED DURING PROCEDURE. Fluoroscopy 03/14/18 00:00 IMPRESSION: IMAGE(S) OBTAINED DURING PROCEDURE. Abdomen/Pelvis CT 03/15/18 00:00 IMPRESSION: Post surgical changes, as above with a small amount of free intraperitoneal air in the upper abdomen and right upper quadrant. There is also a small amount of free fluid in this region as well as pneumobilia. Biliary stent in place. A drainage catheter projects over the right mid abdomen. Correlate with surgical history. Small right pleural effusion with adjacent consolidative change. Nonobstructing right renal calculi. Diffuse anasarca. Fatty infiltrative change to the liver. TECHNICAL DOCUMENTATION: Quality ID # 436: Final reports with documentation of one or more dose reduction techniques (e.g., Automated exposure control, adjustment of the mA and/or kV according to patient size, use of iterative reconstruction technique) copyright 2011 [employer]- All Rights Reserved Chest X-Ray 03/17/18 00:00 IMPRESSION: Significant interval decrease in bilateral pleural effusions, minimal residual basilar subsegmental atelectasis-fluid. Assessment & Plan - Plan Summary Plan Summary: looks much better today, sitting up in chair some ruq pain on and off with deep inspiration wound clean,dry debby now serous, min bile op passing flaltus and stool feels much less bloated wbc down this am to 21 lytes ok plan discussed with Dr Morales from [facility] will cont current iv abx may repeat ct in 1 or 2 days will advance diet start heparin sub q add toradol for pain transition to oral pain meds.
[2018-03-18] MEDS: FUROSEMIDE INJ/PF 20 MG/2 ML SDV IV SCH ×2 (09:37→22:51)
[2018-03-18] MEDS: KETOROLAC TROMETHAMINE INJ/PF 30 MG/1 ML SDV IV PRN (09:38)
[2018-03-18] MEDS: FAMOTIDINE INJ/PF 20 MG/2 ML SDV IV SCH ×2 (09:38→22:50)
[2018-03-18] MEDS: LORAZEPAM 1 MG TABLET PO PRN ×2 (09:39→19:12)
[2018-03-18] MEDS: SALMETEROL XINAFOATE DISKUS 50 MCG/1 DOSE 28 DOSE IH SCH ×2 (09:48→22:51)
[2018-03-18] MEDS ORDERED: HEPARIN SOD (PORCINE) 5,000 UNIT/ML 1 ML SYRINGE SUBCUT SCH (10:00)
[2018-03-18] MEDS: VANCOMYCIN HCL 1,250 MG in DEXTROSE 5%-WATER 250 ML IV SCH ×2 (10:04→21:58)
--- NOTE | 2018-03-18 12:53 | RADIOLOGY REPORT (SQ) ---
EXAM DESCRIPTION: CTA CHEST COMPLETED DATE/TIME: 03/18/2018 12:24 pm REASON FOR STUDY: evaluate for PE. Post-surgical pt w/R chest pain C23 MALIGNANT NEOPLASM OF GALLBL ADDER COMPARISON: None. TECHNIQUE: CT scan of the chest performed using helical scanning technique with dynamic intravenous contrast injection. Images reviewed with lung, soft tissue and bone windows. Reconstructed coronal and sagittal MPR images reviewed. Additional 3 dimensional post-processing performed to develop Maximal Intensity Projection images (UT P). All images stored on PACS. All CT scanners at this facility use dose modulation, iterative reconstruction, and/or weight based d osing when appropriate to reduce radiation dose to as low as reasonably achievable (ALARA). [facility]: Dose Right [facility]: CareDose [facility]: Dose Right [facility]: Teradose 4D [facility]: AppTap CONTRAST TYPE AND DOSE: contrast/concentration: Isovue 350.00 mg/ml; Total Contrast Delivered: 83.0 ml; Total Saline Delivered: 82.6 ml Contrast bolus optimized for the pulmonary arteries. Not diagnostic for the aorta. RENAL FUNCTION: Creatinine: 0.46 RADIATION DOSE: CT Rad equipment meets quality standard of care and radiation dose reduction techniq ues were employed. CTDIvol: 20.1 - 41.3 mGy. DLP: 605 mGy-cm. . LIMITATIONS: None. FINDINGS: LUNGS AND PLEURA: Bilateral pleural effusions, right greater than left. Bibasilar atelect asis. AORTA AND GREAT VESSELS: No aneurysm. Contrast bolus not optimized for the aorta. HEART: No pericardial effusion. No significant coronary artery calcifications. PULMONARY ARTERIES: No emboli visualized in the main pulmonary arteries or the segmental branches. HILAR AND MEDIASTINAL STRUCTURES: No identified masses or abnormal nodes. HARDWARE: None in the chest. UPPER ABDOMEN: Prominent ascites anterior to the liver. Pneumoperitoneum. Status post cholecystecto my. Pneumobilia. Fatty infiltration of the liver. Postsurgical changes anterior abdominal wall bill gical clips in place. THYROID AND OTHER SOFT TISSUES: No abnormality. BONES: Or posttraumatic deformity of right 2nd rib. 3D MIPS: Confirm above findings. OTHER: Postsurgical changes of the anterior abdominal wall. IMPRESSION: 1 . Status post cholecystectomy with pneumobilia. Upper abdominal ascites and pneumope ritoneum consistent with postsurgical change. 2. Bibasilar atelectasis with pleural effusions. COMMENT: Quality ID # 436: Final reports with documentation of one or more dose reduction techniques (e.g., Automated exposure control, adjustment of the mA and/or kV according to patient size, use of iterative reconstruction technique) TECHNICAL DOCUMENTATION: JOB ID: [id number] [employer]- All Rights Reserved Reading location - IP/workstation name: [email or web address]
[2018-03-18] MEDS ORDERED: SUCCINYLCHOLINE CHLORIDE INJ 200 MG/10 ML VIAL ONE (15:04)
[2018-03-18] MEDS ORDERED: LORAZEPAM INJ 2 MG/1 ML VIAL ONE (15:12)
[2018-03-18] MEDS: HEPARIN SOD (PORCINE) 5,000 UNIT/ML 1 ML SYRINGE SUBCUT SCH ×2 (15:34→22:50)
[2018-03-18] MEDS ORDERED: DIAZEPAM 2 MG TABLET PO ONE (16:29)
[2018-03-18] MEDS ORDERED: LORAZEPAM INJ 2 MG/1 ML VIAL IV ONE (16:30)
[2018-03-18] MEDS: ALBUTEROL SULFATE 0.083% NEB 2.5 MG/3 ML AMPUL NEB PRN (16:53)
[2018-03-18 17:28] LABS: ARTERIAL BLOOD H2CO3 1.11 mmol/L (1.05-1.35); ARTERIAL BLOOD HCO3 29.1 mmol/L (20-24); ARTERIAL BLOOD O2 SATURATION 92.2 % (94-98); ARTERIAL BLOOD PH 7.51 (7.35-7.45); ARTERIAL BLOOD PO2 56.7 mmHg (80-100); ARTERIAL BLOOD TOTAL CO2 30.3 mmol/L (21-25)
[2018-03-18 17:29] LABS: ARTERIAL BLOOD FIO2 4L
[2018-03-18] MEDS ORDERED: FUROSEMIDE INJ/PF 20 MG/2 ML SDV IV ONE ×2 (18:00→18:30)
--- NOTE | 2018-03-18 18:02 | PDOC PROGRESS REPORT ---
Subjective Progress Note for:: 03/18/18 Subjective:: 63 y.o. F with HTN, asthma and COPD admitted to [facility] 03/01/2018 for c holecystectomy to remove cancerous gallbladder. Within days of surgery there was a large amount of output noted in her JASKARAN drain. The patient underwent an ERCP on 03/14/2018 with CBD stent placement. Within 24hrs she began developing signs of sepsis and the hospitalist service was consulted for medical management. Follow up CT Abd/Pelvis showed small amount of free air in RUQ and pneumobilia, small amount of free fluid surrounding the liver and in RUQ, and a small R pleural effusion. The patient was seen this morning, she is resting in bed. The patient still endorses dyspnea, even while at rest. The patient still requires 3-4LNC to maintain SPO2>88%. Nursing staff reports the patient is experiencing tachypnea and her RR remains in the high 20s even 30s at times. D-Dimer checked this AM was 9.26 (a somewhat expected finding in a postop patient). CTA chest and abdomen completed to evaluate for PE. No evidence of PE but does show fluid collection around the liver, pneumoperitoneum (consistent with post surgical changes), bibasilar atelectasis and pleural effusions R>L. The patient was given xopenex nebulizer treatments (duonebs resulted in tachycardia and worsening anxiety). She was switched from symbicort (which the patient reported gave her chest pain) to spiriva and serevent long acting inhalers. At 1530 this provider was notified that the patient became acutely tachypneic a nd was complaining of acute pain in her L abdomen. The patient states she attempted to get up OOB and walk when she experienced "sharp/grabbing" pain. The patient was notified that due to her low potassium she may be experiencing abdominal cramping. Plan for continuous PO potassium replacement (refusing IV potassium). Administered 1 mg Ativan for significant anxiety. At 1630 this provider was notified that the patient was still complaining of L sided abdominal pain. The patient was moved back to bed. She endorsed abdominal pain and began complaining of dyspnea. "I can't breath." Upon auscultation, lung sounds are clear, mildly diminished in the bilateral bases. The patient was tachycardic, HR 130-145. SPO2 remains above 90% on nasal cannula. RR 35-40. Administered p.o. Valium. Plan for BiPAP. Follow-up ABG. Diuresis. EKG. Cardiac enzymes. CMP. Upgraded to IMCU. Dr. Michaud aware of the change in the patient's condition. Reason For Visit: GALLBLADDER CANCER Physical Exam Vital Signs: Temp Pulse Resp BP Pulse Ox 97.4 F 121 H 48 H 140/80 H 94 03/18/18 16:08 03/18/18 16:08 03/18/18 16:08 03/18/18 16:08 03/18/18 16:08 Intake & Output 03/17/18 03/18/18 03/19/18 06:59 06:59 06:59 Intake Total 4354 2072 1025 Output Total 2540 3120 Balance 1814 -1048 1025 Weight 97.6 kg 97.6 kg General appearance: PRESENT: obese Eye exam: PRESENT: conjunctiva pink, PERRLA Mouth exam: PRESENT: dry mucosa, tongue midline Neck exam: PRESENT: full ROM Respiratory exam: PRESENT: clear to auscultation christian, symmetrical, tachypnea, other - LABORED. SHALLOW BREATHING. Cardiovascular exam: PRESENT: tachycardia - 135-145 BPM Pulses: PRESENT: normal radial pulses Vascular exam: PRESENT: normal capillary refill GI/Abdominal exam: PRESENT: soft, tenderness - TO SURGICAL SITE ON RUQ. MILD TTP TO LUQ AND LLQ Rectal exam: PRESENT: deferred Extremities exam: PRESENT: full ROM. ABSENT: joint swelling Musculoskeletal exam: PRESENT: ambulatory - OOB TO CHAIR. PATIENT REPORTS SHE WAS ABLE TO WALK 100FT YESTERDAY BUT UNABLE TODAY., full ROM Neurological exam: PRESENT: alert, awake, oriented to person, oriented to place, oriented to time, oriented to situation Psychiatric exam: PRESENT: appropriate affect Skin exam: PRESENT: dry, other - MULTIPLE SITES OF BRUISING ON THE UPPER EX TREMITIES Results Laboratory Results: 03/18/18 04:45 03/18/18 04:45 03/18/18 03/18/18 03/18/18 04:45 04:45 04:45 WBC 21.2 H RBC 3.40 L Hgb 9.6 L Hct 28.5 L MCV 84 MCH 28.2 MCHC 33.6 RDW 14.3 H Plt Count 446 Seg Neutrophils % Not Reportable Lymphocytes % Not Reportable Monocytes % Not Reportable Eosinophils % Not Reportable Basophils % Not Reportable Absolute Neutrophils Not Reportable Absolute Lymphocytes Not Reportable Absolute Monocytes Not Reportable Absolute Eosinophils Not Reportable Absolute Basophils Not Reportable Sodium 133.2 L Potassium 2.8 L* Chloride 94 L Carbon Dioxide 31 H Anion Gap 8 BUN 5 L Creatinine 0.46 L Est GFR ( Amer) > 60 Est GFR (Non-Af Amer) > 60 Glucose 95 Calcium 7.9 L Magnesium 1.6 Total Bilirubin 0.7 AST 20 ALT 43 Alkaline Phosphatase 167 H Total Protein 4.4 L Albumin 2.2 L 03/16/18 03/18/18 05:06 04:45 Troponin I < 0.012 NT-Pro-B Natriuret Pep 513 Impressions: KUB X-Ray 03/11/18 00:00 IMPRESSION: There are mildly dilated small bowel loops throughout the left abdomen, developing ileus or obstruction possible. Hepatobiliary Scan Nuclear Medicine 03/12/18 00:00 IMPRESSION: Bile leak in the gallbladder fossa. Catheter Placement 03/14/18 00:00 IMPRESSION: IMAGE(S) OBTAINED DURING PROCEDURE. Fluoroscopy 03/14/18 00:00 IMPRESSION: IMAGE(S) OBTAINED DURING PROCEDURE. Abdomen/Pelvis CT 03/15/18 00:00 IMPRESSION: Post surgical changes, as above with a small amount of free intraperitoneal air in the upper abdomen and right upper quadrant. There is also a small amount of free fluid in this region as well as pneumobilia. Biliary stent in place. A drainage catheter projects over the right mid abdomen. Correlate with surgical history. Small right pleural effusion with adjacent consolidative change. Nonobstructing right renal calculi. Diffuse anasarca. Fatty infiltrative change to the liver. TECHNICAL DOCUMENTATION: Quality ID # 436: Final reports with documentation of one or more dose reduction techniques (e.g., Automated exposure control, adjustment of the mA and/or kV according to patient size, use of iterative reconstruction technique) copyright 2011 [employer]- All Rights Reserved Chest X-Ray 03/17/18 00:00 IMPRESSION: Significant interval decrease in bilateral pleural effusions, minimal residual basilar subsegmental atelectasis-fluid. Chest/Abdomen CTA 03/18/18 00:00 IMPRESSION: 1 . Status post cholecystectomy with pneumobilia. Upper abdominal ascites and pneumoperitoneum consistent with postsurgical change. 2. Bibasilar atelectasis with pleural effusions. Status: Imported from PACS Assessment & Plan - Diagnosis (1) Sepsis Is this a current diagnosis for this admission?: Yes Plan: Unchanged Sepsis with an unknown source Evidence by tachycardia, leukocyosis, fever (ZLBZ439.2), tachypnea (RR 24-40) No evidence of PNA, blood cultures pending Urinalysis negative Lactate 1.3 Surgical incision is C/D/I JASKARAN draining yellow fluid Continue Vancomycin and Flagyl IV Previously received Cipro pre-operatively before Ex Lap, postoperatively received Ancef and Flagyl 03/06-03/13 If patient continues to decompensate, may need surgery to drain intraabdominal fluid (2) Hypoxia Is this a current diagnosis for this admission?: Yes Plan: No change. SPO2 remains above 90% on supplemental O2 b/ pleural effusions on CTA today R>L BID Lasix History of COPD - 15 years 1.5 PPD Refused home dose spiriva and symbicort, states these give her chest pain Changed long acting inhalers to serevent PRN Xopenex nebulizer treatments No Albuterol, patient reports it gives her anxiety BIPAP initiated today for respiratory distress Encourage ambulation. Use of IS is imperative (when possible) given her developing atelectasis (3) Gallbladder cancer Is this a current diagnosis for this admission?: Yes Plan: Management per oncology Followed by Dr. Youngblood - Time Time Spent with patient: 25-34 minutes Total Critical Time (Minutes): 45 Medications reviewed and adjusted accordingly: Yes - Inpatient Certification Based on my medical assessment, after consideration of the patient's comorbidities, presenting symptoms, or acuity I expect that the services needed warrant INPATIENT care.: Yes I certify that my determination is in accordance with my understanding of Medicare's requirements for reasonable and necessary INPATIENT services [42 CFR 412.3e].: Yes Medical Necessity: Need for Nebulizer Therapy and Monitoring of Response, Need for IV Antibiotics - Plan Summary Plan Summary: UPGRADE TO [facility]
[2018-03-18 19:16] LABS: HEMATOCRIT 36.4 % (36.0-47.0); MEAN CORPUSCULAR HEMOGLOBIN 28.2 pg (27.0-33.4); MEAN CORPUSCULAR VOLUME 83 fl (80-97); PLATELET COUNT 632 10^3/uL (150-450); RED BLOOD COUNT 4.39 10^6/uL (3.72-5.28); RED CELL DISTRIBUTION WIDTH 14.6 % (11.5-14.0); WHITE BLOOD COUNT 4.8 10^3/uL (4.0-10.5)
[2018-03-18 19:27] LABS: HEMOGLOBIN 12.4 g/dL (12.0-15.5)
[2018-03-18 19:46] LABS: ALANINE AMINOTRANSFERASE 44 U/L (9-52); ALBUMIN 2.4 g/dL (3.5-5.0); ALKALINE PHOSPHATASE 171 U/L (38-126); ANION GAP 8 (5-19); ASPARTATE AMINO TRANSFERASE 22 U/L (14-36); BILIRUBIN,DIRECT 0.5 mg/dL (0.0-0.4); BILIRUBIN,TOTAL 0.8 mg/dL (0.2-1.3); BLOOD UREA NITROGEN 8 mg/dL (7-20); CALCIUM 8.2 mg/dL (8.4-10.2); CARBON DIOXIDE 29 mmol/L (22-30); CHLORIDE 97 mmol/L (98-107); GLUCOSE 134 mg/dL (75-110); SODIUM 133.9 mmol/L (137-145); TOTAL PROTEIN 4.6 g/dL (6.3-8.2)
[2018-03-18 19:52] LABS: POTASSIUM 4.1 mmol/L (3.6-5.0)
[2018-03-18] MEDS ORDERED: ACETAMINOPHEN 650 MG SUPP.RECT PR ONE (19:58)
[2018-03-18 20:00] LABS: ARTERIAL BLOOD BASE EXCESS 4.6 mmol/L; ARTERIAL BLOOD FIO2 100%; ARTERIAL BLOOD H2CO3 1.01 mmol/L (1.05-1.35); ARTERIAL BLOOD HCO3 27.1 mmol/L (20-24); ARTERIAL BLOOD O2 SATURATION 96.3 % (94-98); ARTERIAL BLOOD PCO2 33.7 mmHg (35-45); ARTERIAL BLOOD PH 7.52 (7.35-7.45); ARTERIAL BLOOD PO2 73.8 mmHg (80-100); ARTERIAL BLOOD TOTAL CO2 28.2 mmol/L (21-25)
[2018-03-18 20:00] LABS: TROPONIN I < 0.012 ng/mL
--- NOTE | 2018-03-18 20:06 | RADIOLOGY REPORT (SQ) ---
EXAM DESCRIPTION: XR CHEST 1 VIEW COMPLETED DATE/TME: 03/18/2018 00:00 CLINICAL HISTORY: 63 years, Female, triple lumen catheter placement COMPARISON: 03/17/2018 chest NUMBER OF VIEWS: 1 TECHNIQUE: Portable chest LIMITATIONS: None. FINDINGS: Cardiomegaly with low lung volumes. Central venous catheter with the tip likely in the right atrium. No pneumothorax. Layering bibasilar effusions. IMPRESSION: Cardiomegaly with bibasilar effusions and low lung volumes. Central venous catheter tip likely in the right atrium copyright 2010 [employer]- All Rights Reserved
[2018-03-18] MEDS ORDERED: PHARMACY COMMUNICATION ORDER MC NR (20:15)
[2018-03-18] MEDS ORDERED: PROPOFOL 1,000 MG/100 ML INFUS..BTL IV ONE (20:15)
[2018-03-18 20:27] LABS: ALANINE AMINOTRANSFERASE 39 U/L (9-52); ALBUMIN 2.4 g/dL (3.5-5.0); ALKALINE PHOSPHATASE 170 U/L (38-126); ANION GAP 8 (5-19); ASPARTATE AMINO TRANSFERASE 20 U/L (14-36); BILIRUBIN,DIRECT 0.5 mg/dL (0.0-0.4); BILIRUBIN,TOTAL 0.9 mg/dL (0.2-1.3); BLOOD UREA NITROGEN 8 mg/dL (7-20); CARBON DIOXIDE 29 mmol/L (22-30); CHLORIDE 97 mmol/L (98-107); GLUCOSE 129 mg/dL (75-110); POTASSIUM 4.1 mmol/L (3.6-5.0); SODIUM 133.8 mmol/L (137-145); TOTAL PROTEIN 4.7 g/dL (6.3-8.2)
[2018-03-18] MEDS ORDERED: LORAZEPAM 1 MG TABLET NG PRN (20:30)
--- NOTE | 2018-03-18 20:58 | Progress Note ---
Provider Note Provider Note: Critical care note: Begin critical care time 19:47 Patient was transferred to the ICU from the [facility] because of progressively worsening tachypnea, tachycardia and relative hypotension. She was found to have bibasilar rales with significantly decreased breath sounds and dullness on percussion at both bases of her lungs with a market tachypneic rate of approximately 45 with extreme work of breathing noted utilizing accessory muscles of respiration and also some splinting noted to decrease the movement of the right chest secondary to pain. Her cardiac exam revealed a marked regular tachycardia which was sinus tach on the monitor at 140 bpm with a faint S4 noted on exam. Patient's abdomen showed decreased bowel sounds with tenderness to palpation over the area of her right subcostal incision and Gio-Haynes drain site. The wound itself was clean and dry with no evidence of erythema edema or induration. The patient was noted to be splinting on breathing with significant hypoventilation due to pain increased by deeper respirations. Examination of her extremities revealed 2+ pitting edema to the knees. Patient was also noted to have a fever with temperature 101.8F. With these findings it was determined that the patient is most likely hypoventilating secondary to her abdominal incision pain causing her to develop atelectasis and fever. Additionally patient is tachypneic due to her relative hypoxia caused by the hypoventilation. It is felt that she is most likely vascular volume depleted despite her bilateral pleural effusions and peripheral edema and with the tachycardia secondary to the fever and volume depletion her congestive heart failure is actually being worsened. The patient will be treated by insertion of a central line by Dr. Mckenna, intubation and ventilation to improve her respiratory status and alleviate her work of breathing and the patient will be seen in consultation by Dr. Pagan to help to deal with her congestive heart failure and tachycardia in this complex setting. I have discussed with Dr. Pagan the possibility of administering albumin to the patient as well as gentle IV hydration in an effort to increase her intravascular volume and control her tachycardia as well as potentially using other agents to control her tachycardia as her blood pressure at this point in time is adequate and she should be able to tolerate such measures. Arterial blood gases and a comprehensive metabolic profile have been obtained with results available on the chart. In critical care time 20:57 Total [id number] critical care time 34 minutes
--- NOTE | 2018-03-18 21:11 | RADIOLOGY REPORT (SQ) ---
EXAM DESCRIPTION: XR CHEST 1 VIEW COMPLETED DATE/TME: 03/18/2018 00:00 CLINICAL HISTORY: 63 years, Female, ETT and NG placement COMPARISON: Prior chest x-ray from today's date NUMBER OF VIEWS: 2 TECHNIQUE: AP views of the chest LIMITATIONS: None. FINDINGS: Heart size is stable. Interval intubation with the endotracheal tube tip approximately 3.3 cm above the leonardo. Enteric tube with the tip likely in the body of the stomach. Post surgical changes of the upper abdomen with surgical drain. No discrete pneumothorax. Central venous catheter in place. Layering bibasilar effusions. Osteopenia. IMPRESSION: Interval intubation and placement of an enteric tube. Other findings are stable copyright 2010 [employer]- All Rights Reserved
[2018-03-18 21:27] LABS: LIPASE 53.9 U/L (23-300)
[2018-03-18 21:28] LABS: AMYLASE < 30 U/L (30-110)
[2018-03-18] MEDS ORDERED: MEROPENEM 1 GM VIAL IV PRN (22:00)
[2018-03-18 22:25] LABS: ARTERIAL BLOOD BASE EXCESS 5.8 mmol/L; ARTERIAL BLOOD H2CO3 1.16 mmol/L (1.05-1.35); ARTERIAL BLOOD HCO3 29.4 mmol/L (20-24); ARTERIAL BLOOD O2 SATURATION 98.2 % (94-98); ARTERIAL BLOOD PCO2 38.7 mmHg (35-45); ARTERIAL BLOOD PO2 104.3 mmHg (80-100); ARTERIAL BLOOD TOTAL CO2 30.6 mmol/L (21-25)
[2018-03-18 22:26] LABS: ARTERIAL BLOOD FIO2 50%
[2018-03-18] MEDS ORDERED: MIDAZOLAM HCL 50 MG/100 ML RTUINJ ONE (23:58)
--- NOTE | 2018-03-19 00:03 | EKG REPORT ---
SEVERITY:- ABNORMAL ECG - SINUS TACHYCARDIA NONSPECIFIC T ABNORMALITIES, INFERIOR LEADS : Confirmed by: Madison Abbasi 19-Mar-2018 00:02:53
--- NOTE | 2018-03-19 00:03 | EKG REPORT ---
SEVERITY:- ABNORMAL ECG - SINUS TACHYCARDIA FIRST DEGREE AV BLOCK TERRELL, CONSIDER BIATRIAL ABNORMALITIES PROBABLE INFERIOR INFARCT, AGE INDETERMINATE : Confirmed by: Madison Abbasi 19-Mar-2018 00:02:36
[2018-03-19] MEDS: MIDAZOLAM HCL 50 MG/100 ML RTUINJ IV PRN ×6 (00:04→22:29)
[2018-03-19] MEDS: INSULIN REG, HUMAN 100 UNIT/ML 3 ML VIAL (PYX) SUBCUT SCH ×4 (00:05→17:49)
[2018-03-19] MEDS: METRONIDAZOLE 500 MG/NS RTU 500 MG/100 ML RTUPB IV SCH ×4 (00:06→17:39)
[2018-03-19] MEDS ORDERED: NORMAL SALINE 1000 ML 2,000 ML IV ONE (00:15)
[2018-03-19] MEDS ORDERED: ALBUMIN HUMAN 25% RTU INJ 12.5 GM/50 ML RTUINJ IV ONE (00:30)
[2018-03-19] MEDS ORDERED: MEROPENEM 1 GM in NORMAL SALINE 50 ML IV ONE ×3 (00:30)
[2018-03-19] MEDS: HYDROCORTISONE SOD SUCCINATE INJ/PF 100 MG/2 ML SDV ONE ×2 (00:49→00:50)
[2018-03-19] MEDS ORDERED: HYDROCORTISONE SOD SUCCINATE INJ 500 MG/4 M VIAL IV ONE (01:00)
[2018-03-19] MEDS: LEVALBUTEROL HCL NEB 0.63 MG/3 ML AMPUL NEB SCH ×4 (01:49→20:29)
[2018-03-19] MEDS ORDERED: PHENYLEPHRINE HCL INJ/PF 10 MG/1 ML SDV ONE (02:07)
[2018-03-19] MEDS: DEXTROSE 5%-WATER 250 ML with PHENYLEPHRINE HCL 40 MG IV PRN ×4 (02:13→13:38)
[2018-03-19] MEDS: VANCOMYCIN HCL 1,250 MG in DEXTROSE 5%-WATER 250 ML IV SCH ×3 (02:15→17:39)
[2018-03-19] MEDS: TIOTROPIUM BROMIDE DPI 5 CAP/KIT (18 MCG/CAP) IH SCH (06:36)
[2018-03-19] MEDS: HEPARIN SOD (PORCINE) 5,000 UNIT/ML 1 ML SYRINGE SUBCUT SCH ×3 (06:39→22:30)
--- NOTE | 2018-03-19 06:47 | OPERATIVE REPORT E ---
Operative Report NAME: CARMEN RUSSO : 1955 AGE: 63Y DATE OF SURGERY: 03/18/2018 ROOM: [facility] PREOPERATIVE DIAGNOSIS: POOR PERIPHERAL VEINS FOR IV ACCESS AND PATIENT IS TACHYCARDIC AND HYPOTENSIVE, NEEDED A LOT OF IV MEDICATIONS AND FLUIDS. POSTOPERATIVE DIAGNOSIS: POOR PERIPHERAL VEINS FOR IV ACCESS AND PATIENT IS TACHYCARDIC AND HYPOTENSIVE, NEEDED A LOT OF IV MEDICATIONS AND FLUIDS. OPERATION: Placement of right internal jugular vein triple lumen catheter SURGEON: FARZANA BENNETT M.D. ANESTHESIA: Local. INDICATION: This is a 63-year-old female who was noted to have hypotension and tachycardia. She is postop. Nurses unable to get a good peripheral vein line. DESCRIPTION OF PROCEDURE: The patient was placed in Trendelenburg position and the right neck prepped and draped in the usual sterile fashion. With use of the ultrasound, the right internal jugular vein was then identified. Next, local anesthesia infiltrated along the path of the internal jugular vein and the needle passed through the internal jugular vein. Blood came out nonpulsatile and dark. A guidewire passed through the needle towards the area of the superior vena cava. The needle was removed and the insertion side dilated. A triple-lumen catheter inserted through the guidewire to a distance of about 17 cm. The catheter anchored to the skin with 3-0 silk. All the 3 ports aspirated blood easily and instilled saline easily. Biopatch placed at the incision site and a transparent dressing placed at the Biopatch and catheter. Chest x-ray will be obtained for placement. DICTATING PHYSICIAN: FARZANA BENNETT M.D. [id number] PHY#: [id number] ID: [id number] JOB#: [id number] ACCT: [id number] cc:FARZANA BENNETT M.D. > MTDD
[2018-03-19 07:06] LABS: HEMATOCRIT 31.5 % (36.0-47.0); HEMOGLOBIN 10.4 g/dL (12.0-15.5); MEAN CORPUSCULAR HEMOGLOBIN 27.5 pg (27.0-33.4); MEAN CORPUSCULAR HGB CONC 32.9 g/dL (32.0-36.0); MEAN CORPUSCULAR VOLUME 83 fl (80-97); PLATELET COUNT 604 10^3/uL (150-450); RED BLOOD COUNT 3.77 10^6/uL (3.72-5.28); RED CELL DISTRIBUTION WIDTH 14.7 % (11.5-14.0)
[2018-03-19 07:25] LABS: WHITE BLOOD COUNT 18.2 10^3/uL (4.0-10.5)
--- NOTE | 2018-03-19 07:28 | PDOC PROGRESS REPORT ---
Subjective Progress Note for:: 03/19/18 Reason For Visit: GALLBLADDER CANCER intubated in icu Physical Exam Vital Signs: Temp Pulse Resp BP Pulse Ox 99.5 F 100 21 H 111/64 94 03/19/18 06:30 03/19/18 01:50 03/19/18 06:30 03/19/18 06:30 03/19/18 06:30 Intake & Output 03/18/18 03/19/18 03/20/18 06:59 06:59 06:59 Intake Total 2072 3640 Output Total 3120 790 Balance -1048 2850 Weight 97.6 kg 97.6 kg General appearance: PRESENT: other - intubated on versed drip Head exam: PRESENT: atraumatic Respiratory exam: PRESENT: unlabored - clear on left, decreased bs on rt, no wheezes, rales, rhonchi Cardiovascular exam: PRESENT: RRR Pulses: PRESENT: normal radial pulses, normal femoral pulses GI/Abdominal exam: PRESENT: soft Results Laboratory Results: 03/18/18 03/18/18 03/18/18 04:45 17:10 17:58 WBC Cancelled RBC Cancelled Hgb Cancelled Hct Cancelled MCV Cancelled MCH Cancelled MCHC Cancelled RDW Cancelled Plt Count Cancelled Carbonic Acid 1.11 HCO3/H2CO3 Ratio 26:1 ABG pH 7.51 H ABG pCO2 37.0 ABG pO2 56.7 L ABG HCO3 29.1 H ABG O2 Saturation 92.2 L ABG Base Excess 6.0 FiO2 4L Sodium Potassium Chloride Carbon Dioxide Anion Gap BUN Creatinine Est GFR ( Amer) Est GFR (Non-Af Amer) Glucose Calcium Magnesium 1.6 Total Bilirubin AST ALT Alkaline Phosphatase Total Protein Albumin Amylase Lipase 03/18/18 03/18/18 03/18/18 18:37 19:10 19:45 WBC 4.8 RBC 4.39 Hgb 12.4 D Hct 36.4 MCV 83 MCH 28.2 MCHC 34.0 RDW 14.6 H Plt Count 632 H Carbonic Acid 1.01 L HCO3/H2CO3 Ratio 26:1 ABG pH 7.52 H ABG pCO2 33.7 L ABG pO2 73.8 L ABG HCO3 27.1 H ABG O2 Saturation 96.3 ABG Base Excess 4.6 FiO2 100% Sodium 133.9 L Potassium 4.1 D Chloride 97 L Carbon Dioxide 29 Anion Gap 8 BUN 8 Creatinine 0.53 Est GFR ( Amer) > 60 Est GFR (Non-Af Amer) > 60 Glucose 134 H Calcium 8.2 L Magnesium Total Bilirubin 0.8 AST 22 ALT 44 Alkaline Phosphatase 171 H Total Protein 4.6 L Albumin 2.4 L Amylase Lipase 03/18/18 03/18/18 03/18/18 19:50 19:50 22:14 WBC RBC Hgb Hct MCV MCH MCHC RDW Plt Count Carbonic Acid 1.16 HCO3/H2CO3 Ratio 25:1 ABG pH 7.50 H ABG pCO2 38.7 ABG pO2 104.3 H ABG HCO3 29.4 H ABG O2 Saturation 98.2 H ABG Base Excess 5.8 FiO2 50% Sodium 133.8 L Potassium 4.1 Chloride 97 L Carbon Dioxide 29 Anion Gap 8 BUN 8 Creatinine 0.56 Est GFR ( Amer) > 60 Est GFR (Non-Af Amer) > 60 Glucose 129 H Calcium 8.0 L Magnesium Total Bilirubin 0.9 AST 20 ALT 39 Alkaline Phosphatase 170 H Total Protein 4.7 L Albumin 2.4 L Amylase < 30 L Lipase 53.9 03/16/18 03/18/18 03/18/18 05:06 04:45 19:10 CK-MB (CK-2) 1.10 Troponin I < 0.012 < 0.012 NT-Pro-B Natriuret Pep 513 03/18/18 19:50 CK-MB (CK-2) Troponin I NT-Pro-B Natriuret Pep 272 Impressions: KUB X-Ray 03/11/18 00:00 IMPRESSION: There are mildly dilated small bowel loops throughout the left abdomen, developing ileus or obstruction possible. Hepatobiliary Scan Nuclear Medicine 03/12/18 00:00 IMPRESSION: Bile leak in the gallbladder fossa. Catheter Placement 03/14/18 00:00 IMPRESSION: IMAGE(S) OBTAINED DURING PROCEDURE. Fluoroscopy 03/14/18 00:00 IMPRESSION: IMAGE(S) OBTAINED DURING PROCEDURE. Abdomen/Pelvis CT 03/15/18 00:00 IMPRESSION: Post surgical changes, as above with a small amount of free intraperitoneal air in the upper abdomen and right upper quadrant. There is also a small amount of free fluid in this region as well as pneumobilia. Biliary stent in place. A drainage catheter projects over the right mid abdomen. Correlate with surgical history. Small right pleural effusion with adjacent consolidative change. Nonobstructing right renal calculi. Diffuse anasarca. Fatty infiltrative change to the liver. TECHNICAL DOCUMENTATION: Quality ID # 436: Final reports with documentation of one or more dose reduction techniques (e.g., Automated exposure control, adjustment of the mA and/or kV according to patient size, use of iterative reconstruction technique) copyright 2011 [employer]- All Rights Reserved Chest X-Ray 03/18/18 00:00 IMPRESSION: Interval intubation and placement of an enteric tube. Other findings are stable copyright 2010 [employer]- All Rights Reserved Chest/Abdomen CTA 03/18/18 00:00 IMPRESSION: 1 . Status post cholecystectomy with pneumobilia. Upper abdominal ascites and pneumoperitoneum consistent with postsurgical change. 2. Bibasilar atelectasis with pleural effusions. Assessment & Plan - Plan Summary Plan Summary: events of last pm noted. pt now intubated in icu, on versed drip, robert, currently vss. tmax 101.7 wbc decreased to 4.8 h/h ct reviewed fluid collection rt subdiaphramatic, rt pleural effusion, impression resp failure, sepsis hypovolemia. plan will ask ir to drain fluid collecion above rt hepatic lobe gentle rehydration (suspect dehydrated to to previous lasix) cont vent support today cont iv abx
[2018-03-19 07:44] LABS: ALANINE AMINOTRANSFERASE 34 U/L (9-52); ALBUMIN 2.2 g/dL (3.5-5.0); ALKALINE PHOSPHATASE 115 U/L (38-126); ANION GAP 8 (5-19); ASPARTATE AMINO TRANSFERASE 15 U/L (14-36); BILIRUBIN,DIRECT 0.3 mg/dL (0.0-0.4); BILIRUBIN,TOTAL 0.7 mg/dL (0.2-1.3); BLOOD UREA NITROGEN 7 mg/dL (7-20); CALCIUM 7.6 mg/dL (8.4-10.2); CARBON DIOXIDE 27 mmol/L (22-30); CHLORIDE 101 mmol/L (98-107); GLUCOSE 134 mg/dL (75-110); POTASSIUM 3.9 mmol/L (3.6-5.0); TOTAL PROTEIN 4.2 g/dL (6.3-8.2)
[2018-03-19 07:45] LABS: ABSOLUTE LYMPHOCYTES# (MANUAL) 0.7 10^3/uL (0.5-4.7); ABSOLUTE MONOCYTES # (MANUAL) 0.4 10^3/uL (0.1-1.4); ABSOLUTE NEUTROPHILS# (MANUAL) 16.9 10^3/uL (1.7-8.2); BAND NEUTROPHILS % (MANUAL) 10 % (3-5); BASOPHILS % (MANUAL) 0 % (0-2); EOSINOPHILS % (MANUAL) 1 % (0-6); LYMPHOCYTES % (MANUAL) 4 % (13-45); MONOCYTES % (MANUAL) 2 % (3-13); SEGMENTED NEUTROPHILS % (MAN) 83 % (42-78); TOTAL CELLS COUNTED 100
[2018-03-19 07:50] LABS: ANISOCYTOSIS SLIGHT; HYPOCHROMASIA SLIGHT
[2018-03-19 07:51] LABS: PLATELET COMMENT INCREASED
--- NOTE | 2018-03-19 08:44 | PDOC PROGRESS REPORT ---
Subjective Progress Note for:: 03/19/18 Subjective:: Yesterday patient had increasing shortness of breath, became tachypneic, was placed initially on BiPAP, felt to be possible fluid overload, was treated with Lasix but became hypotensive, ultimately tired out on BiPAP and transition to full intubation, she is on pressors now because of the hypotension, she is on Versed for sedation. CTA of the chest was done which indicated bilateral pleural effusions as well as possible fluid collection, patient is planned for tap of the fluid collection near the liver. Reason For Visit: GALLBLADDER CANCER Physical Exam Vital Signs: Temp Pulse Resp BP Pulse Ox 99.5 F 100 21 H 111/64 94 03/19/18 06:30 03/19/18 01:50 03/19/18 06:30 03/19/18 06:30 03/19/18 06:30 Intake & Output 03/18/18 03/19/18 03/20/18 06:59 06:59 06:59 Intake Total 2072 3640 11 Output Total 3120 790 Balance -1048 2850 11 Weight 97.6 kg 97.6 kg General appearance: PRESENT: no acute distress Head exam: PRESENT: atraumatic Mouth exam: PRESENT: dry mucosa Respiratory exam: PRESENT: clear to auscultation christian. ABSENT: rales, rhonchi, wheezes Cardiovascular exam: PRESENT: RRR. ABSENT: diastolic murmur, rubs, systolic murmur GI/Abdominal exam: PRESENT: ascites Rectal exam: PRESENT: deferred Neurological exam: PRESENT: other - Intubated sedated Results Laboratory Results: 03/19/18 06:53 03/19/18 06:53 03/18/18 03/18/18 03/18/18 04:45 17:10 17:58 WBC Cancelled RBC Cancelled Hgb Cancelled Hct Cancelled MCV Cancelled MCH Cancelled MCHC Cancelled RDW Cancelled Plt Count Cancelled Seg Neutrophils % Lymphocytes % Monocytes % Eosinophils % Basophils % Absolute Neutrophils Absolute Lymphocytes Absolute Monocytes Absolute Eosinophils Absolute Basophils Carbonic Acid 1.11 HCO3/H2CO3 Ratio 26:1 ABG pH 7.51 H ABG pCO2 37.0 ABG pO2 56.7 L ABG HCO3 29.1 H ABG O2 Saturation 92.2 L ABG Base Excess 6.0 FiO2 4L Sodium Potassium Chloride Carbon Dioxide Anion Gap BUN Creatinine Est GFR ( Amer) Est GFR (Non-Af Amer) Glucose Calcium Magnesium 1.6 Total Bilirubin AST ALT Alkaline Phosphatase Total Protein Albumin Amylase Lipase 03/18/18 03/18/18 03/18/18 18:37 19:10 19:45 WBC 4.8 RBC 4.39 Hgb 12.4 D Hct 36.4 MCV 83 MCH 28.2 MCHC 34.0 RDW 14.6 H Plt Count 632 H Seg Neutrophils % Lymphocytes % Monocytes % Eosinophils % Basophils % Absolute Neutrophils Absolute Lymphocytes Absolute Monocytes Absolute Eosinophils Absolute Basophils Carbonic Acid 1.01 L HCO3/H2CO3 Ratio 26:1 ABG pH 7.52 H ABG pCO2 33.7 L ABG pO2 73.8 L ABG HCO3 27.1 H ABG O2 Saturation 96.3 ABG Base Excess 4.6 FiO2 100% Sodium 133.9 L Potassium 4.1 D Chloride 97 L Carbon Dioxide 29 Anion Gap 8 BUN 8 Creatinine 0.53 Est GFR ( Amer) > 60 Est GFR (Non-Af Amer) > 60 Glucose 134 H Calcium 8.2 L Magnesium Total Bilirubin 0.8 AST 22 ALT 44 Alkaline Phosphatase 171 H Total Protein 4.6 L Albumin 2.4 L Amylase Lipase 03/18/18 03/18/18 03/18/18 19:50 19:50 22:14 WBC RBC Hgb Hct MCV MCH MCHC RDW Plt Count Seg Neutrophils % Lymphocytes % Monocytes % Eosinophils % Basophils % Absolute Neutrophils Absolute Lymphocytes Absolute Monocytes Absolute Eosinophils Absolute Basophils Carbonic Acid 1.16 HCO3/H2CO3 Ratio 25:1 ABG pH 7.50 H ABG pCO2 38.7 ABG pO2 104.3 H ABG HCO3 29.4 H ABG O2 Saturation 98.2 H ABG Base Excess 5.8 FiO2 50% Sodium 133.8 L Potassium 4.1 Chloride 97 L Carbon Dioxide 29 Anion Gap 8 BUN 8 Creatinine 0.56 Est GFR ( Amer) > 60 Est GFR (Non-Af Amer) > 60 Glucose 129 H Calcium 8.0 L Magnesium Total Bilirubin 0.9 AST 20 ALT 39 Alkaline Phosphatase 170 H Total Protein 4.7 L Albumin 2.4 L Amylase < 30 L Lipase 53.9 03/19/18 03/19/18 06:53 06:53 WBC 18.2 H D RBC 3.77 Hgb 10.4 L Hct 31.5 L MCV 83 MCH 27.5 MCHC 32.9 RDW 14.7 H Plt Count 604 H Seg Neutrophils % Not Reportable Lymphocytes % Not Reportable Monocytes % Not Reportable Eosinophils % Not Reportable Basophils % Not Reportable Absolute Neutrophils Not Reportable Absolute Lymphocytes Not Reportable Absolute Monocytes Not Reportable Absolute Eosinophils Not Reportable Absolute Basophils Not Reportable Carbonic Acid HCO3/H2CO3 Ratio ABG pH ABG pCO2 ABG pO2 ABG HCO3 ABG O2 Saturation ABG Base Excess FiO2 Sodium 136.0 L Potassium 3.9 Chloride 101 Carbon Dioxide 27 Anion Gap 8 BUN 7 Creatinine 0.47 L Est GFR ( Amer) > 60 Est GFR (Non-Af Amer) > 60 Glucose 134 H Calcium 7.6 L Magnesium Total Bilirubin 0.7 AST 15 ALT 34 Alkaline Phosphatase 115 Total Protein 4.2 L Albumin 2.2 L Amylase Lipase 03/16/18 03/18/18 03/18/18 05:06 04:45 19:10 CK-MB (CK-2) 1.10 Troponin I < 0.012 < 0.012 NT-Pro-B Natriuret Pep 513 03/18/18 19:50 CK-MB (CK-2) Troponin I NT-Pro-B Natriuret Pep 272 Impressions: KUB X-Ray 03/11/18 00:00 IMPRESSION: There are mildly dilated small bowel loops throughout the left abdomen, developing ileus or obstruction possible. Hepatobiliary Scan Nuclear Medicine 03/12/18 00:00 IMPRESSION: Bile leak in the gallbladder fossa. Catheter Placement 03/14/18 00:00 IMPRESSION: IMAGE(S) OBTAINED DURING PROCEDURE. Fluoroscopy 03/14/18 00:00 IMPRESSION: IMAGE(S) OBTAINED DURING PROCEDURE. Abdomen/Pelvis CT 03/15/18 00:00 IMPRESSION: Post surgical changes, as above with a small amount of free intraperitoneal air in the upper abdomen and right upper quadrant. There is also a small amount of free fluid in this region as well as pneumobilia. Biliary stent in place. A drainage catheter projects over the right mid abdomen. Correlate with surgical history. Small right pleural effusion with adjacent consolidative change. Nonobstructing right renal calculi. Diffuse anasarca. Fatty infiltrative change to the liver. TECHNICAL DOCUMENTATION: Quality ID # 436: Final reports with documentation of one or more dose reduction techniques (e.g., Automated exposure control, adjustment of the mA and/or kV according to patient size, use of iterative reconstruction technique) copyright 2010 [employer]- All Rights Reserved Chest X-Ray 03/18/18 00:00 IMPRESSION: Interval intubation and placement of an enteric tube. Other findings are stable copyright 2010 [employer]- All Rights Reserved Chest/Abdomen CTA 03/18/18 00:00 IMPRESSION: 1 . Status post cholecystectomy with pneumobilia. Upper abdominal ascites and pneumoperitoneum consistent with postsurgical change. 2. Bibasilar atelectasis with pleural effusions. Status: Image reviewed by me Assessment & Plan - Diagnosis (1) Gallbladder cancer Is this a current diagnosis for this admission?: Yes Plan: Unfortunately dealing with multiple medical issues now, will follow, had a long discussion with the , we will fill out [facility] paperwork for him. We will continue to follow closely. - Time Time Spent with patient: 35 or more minutes - Inpatient Certification Based on my medical assessment, after consideration of the patient's comorbidities, presenting symptoms, or acuity I expect that the services needed warrant INPATIENT care.: Yes I certify that my determination is in accordance with my understanding of Medicare's requirements for reasonable and necessary INPATIENT services [42 CFR 412.3e].: Yes Medical Necessity: Need For Continuous Telemetry Monitoring, Need for Nebulizer Therapy and Monitoring of Response, Need for IV Antibiotics, Need for Surgery, Risk of Complication if Not Cared For in Hospital
[2018-03-19] MEDS ORDERED: 1/2 NORMAL SALINE 1,000 ML IV ONE (09:00)
[2018-03-19] MEDS: ALBUMIN HUMAN 12.5 GM/50 ML RTUINJ IV SCH ×2 (09:58→11:02)
[2018-03-19] MEDS: FAMOTIDINE INJ/PF 20 MG/2 ML SDV IV SCH ×2 (09:59→22:29)
[2018-03-19] MEDS: SALMETEROL XINAFOATE DISKUS 50 MCG/1 DOSE 28 DOSE IH SCH ×2 (09:59→22:37)
[2018-03-19] MEDS: MEROPENEM 1 GM in NORMAL SALINE 50 ML IV SCH ×2 (09:59→17:39)
--- NOTE | 2018-03-19 10:38 | PDOC PROGRESS REPORT ---
Subjective Progress Note for:: 03/19/18 Subjective:: 63 y.o. F with HTN, asthma and COPD admitted to [facility] 03/01/2018 for c holecystectomy to remove cancerous gallbladder. Within days of surgery there was a large amount of output noted in her JASKARAN drain. The patient underwent an ERCP on 03/14/2018 with CBD stent placement. Within 24hrs she began developing signs of sepsis and the hospitalist service was consulted for medical management. Follow up CT Abd/Pelvis showed small amount of free air in RUQ and pneumobilia, small amount of free fluid surrounding the liver and in RUQ, and a small R pleural effusion. Overnight, the patient was placed on BIPAP for respiratory distress. Her respiratory status did not improve and eventually the patient was intubated and placed on mechanical ventilation. Presumably secondary to poor respiratory effort secondary to pain/splinting originating from her surgical site as well as B/L pleural effusions. Her effusions were initially thought to be secondary to volume overload stemming from IVF resuscitation following her ERCP, when the patient appeared septic. Attempted to diurese effusions but there was little improvement (as evidence by CXR). Additionally, there is no evidence of heart failure - BNP 272. No evidence of LVH on EKG. No hx of CHF. Renal function WNL. Surgery (primary team) believes that her effusions may be secondary to infection of the perihepatic free fluid. Tip of JASKARAN drain not communicating with fluid collection therefore unable to drain. Plan for IR to drain perihepatic fluid today and send for culture. Meropenem added to antibiotic regimen. Monitor respiratory status closely. If little/no improvement, consider the possibility that the effusions are pathological secondary to her cancer. In which case surgery would need to perform a thoracentesis to drain the effusions. Upgraded to ICU. Dr. Michaud aware of the change in the patient's condition. Dr. Youngblood following. Reason For Visit: GALLBLADDER CANCER Physical Exam Vital Signs: Temp Pulse Resp BP Pulse Ox 99.7 F 73 23 H 106/61 93 03/19/18 08:00 03/19/18 08:00 03/19/18 08:00 03/19/18 08:00 03/19/18 08:00 Intake & Output 03/18/18 03/19/18 03/20/18 06:59 06:59 06:59 Intake Total 2072 3640 11 Output Total 3120 790 110 Balance -1048 2850 -99 Weight 97.6 kg 97.6 kg General appearance: PRESENT: obese Eye exam: PRESENT: conjunctiva pink, PERRLA Mouth exam: PRESENT: moist, neck supple, tongue midline Respiratory exam: PRESENT: clear to auscultation christian, decreased breath sounds - diminished in the b/l lung bases, symmetrical, other - mechanical ventilation Cardiovascular exam: PRESENT: RRR Pulses: PRESENT: normal radial pulses, +1 pedal pulses bilateral Vascular exam: PRESENT: pallor GI/Abdominal exam: PRESENT: hypoactive bowel sounds, soft. ABSENT: distended Rectal exam: PRESENT: deferred Gentrourinary exam: PRESENT: indwelling catheter Extremities exam: PRESENT: pedal edema, +2 edema - lower extremities. ABSENT: full ROM Musculoskeletal exam: ABSENT: ambulatory, full ROM Neurological exam: ABSENT: alert, awake - sedated on propofol, oriented to person, oriented to place, oriented to time, oriented to situation Skin exam: PRESENT: dry, intact, pallor Results Laboratory Results: 03/19/18 06:53 03/19/18 06:53 03/18/18 03/18/18 03/18/18 17:10 17:58 18:37 WBC Cancelled 4.8 RBC Cancelled 4.39 Hgb Cancelled 12.4 D Hct Cancelled 36.4 MCV Cancelled 83 MCH Cancelled 28.2 MCHC Cancelled 34.0 RDW Cancelled 14.6 H Plt Count Cancelled 632 H Seg Neutrophils % Lymphocytes % Monocytes % Eosinophils % Basophils % Absolute Neutrophils Absolute Lymphocytes Absolute Monocytes Absolute Eosinophils Absolute Basophils Carbonic Acid 1.11 HCO3/H2CO3 Ratio 26:1 ABG pH 7.51 H ABG pCO2 37.0 ABG pO2 56.7 L ABG HCO3 29.1 H ABG O2 Saturation 92.2 L ABG Base Excess 6.0 FiO2 4L Sodium Potassium Chloride Carbon Dioxide Anion Gap BUN Creatinine Est GFR ( Amer) Est GFR (Non-Af Amer) Glucose Calcium Total Bilirubin AST ALT Alkaline Phosphatase Total Protein Albumin Amylase Lipase 03/18/18 03/18/18 03/18/18 19:10 19:45 19:50 WBC RBC Hgb Hct MCV MCH MCHC RDW Plt Count Seg Neutrophils % Lymphocytes % Monocytes % Eosinophils % Basophils % Absolute Neutrophils Absolute Lymphocytes Absolute Monocytes Absolute Eosinophils Absolute Basophils Carbonic Acid 1.01 L HCO3/H2CO3 Ratio 26:1 ABG pH 7.52 H ABG pCO2 33.7 L ABG pO2 73.8 L ABG HCO3 27.1 H ABG O2 Saturation 96.3 ABG Base Excess 4.6 FiO2 100% Sodium 133.9 L 133.8 L Potassium 4.1 D 4.1 Chloride 97 L 97 L Carbon Dioxide 29 29 Anion Gap 8 8 BUN 8 8 Creatinine 0.53 0.56 Est GFR ( Amer) > 60 > 60 Est GFR (Non-Af Amer) > 60 > 60 Glucose 134 H 129 H Calcium 8.2 L 8.0 L Total Bilirubin 0.8 0.9 AST 22 20 ALT 44 39 Alkaline Phosphatase 171 H 170 H Total Protein 4.6 L 4.7 L Albumin 2.4 L 2.4 L Amylase Lipase 03/18/18 03/18/18 03/19/18 19:50 22:14 06:53 WBC 18.2 H D RBC 3.77 Hgb 10.4 L Hct 31.5 L MCV 83 MCH 27.5 MCHC 32.9 RDW 14.7 H Plt Count 604 H Seg Neutrophils % Not Reportable Lymphocytes % Not Reportable Monocytes % Not Reportable Eosinophils % Not Reportable Basophils % Not Reportable Absolute Neutrophils Not Reportable Absolute Lymphocytes Not Reportable Absolute Monocytes Not Reportable Absolute Eosinophils Not Reportable Absolute Basophils Not Reportable Carbonic Acid 1.16 HCO3/H2CO3 Ratio 25:1 ABG pH 7.50 H ABG pCO2 38.7 ABG pO2 104.3 H ABG HCO3 29.4 H ABG O2 Saturation 98.2 H ABG Base Excess 5.8 FiO2 50% Sodium Potassium Chloride Carbon Dioxide Anion Gap BUN Creatinine Est GFR ( Amer) Est GFR (Non-Af Amer) Glucose Calcium Total Bilirubin AST ALT Alkaline Phosphatase Total Protein Albumin Amylase < 30 L Lipase 53.9 03/19/18 06:53 WBC RBC Hgb Hct MCV MCH MCHC RDW Plt Count Seg Neutrophils % Lymphocytes % Monocytes % Eosinophils % Basophils % Absolute Neutrophils Absolute Lymphocytes Absolute Monocytes Absolute Eosinophils Absolute Basophils Carbonic Acid HCO3/H2CO3 Ratio ABG pH ABG pCO2 ABG pO2 ABG HCO3 ABG O2 Saturation ABG Base Excess FiO2 Sodium 136.0 L Potassium 3.9 Chloride 101 Carbon Dioxide 27 Anion Gap 8 BUN 7 Creatinine 0.47 L Est GFR ( Amer) > 60 Est GFR (Non-Af Amer) > 60 Glucose 134 H Calcium 7.6 L Total Bilirubin 0.7 AST 15 ALT 34 Alkaline Phosphatase 115 Total Protein 4.2 L Albumin 2.2 L Amylase Lipase 03/16/18 03/18/18 03/18/18 05:06 04:45 19:10 CK-MB (CK-2) 1.10 Troponin I < 0.012 < 0.012 NT-Pro-B Natriuret Pep 513 03/18/18 19:50 CK-MB (CK-2) Troponin I NT-Pro-B Natriuret Pep 272 Impressions: KUB X-Ray 03/11/18 00:00 IMPRESSION: There are mildly dilated small bowel loops throughout the left abdomen, developing ileus or obstruction possible. Hepatobiliary Scan Nuclear Medicine 03/12/18 00:00 IMPRESSION: Bile leak in the gallbladder fossa. Catheter Placement 03/14/18 00:00 IMPRESSION: IMAGE(S) OBTAINED DURING PROCEDURE. Fluoroscopy 03/14/18 00:00 IMPRESSION: IMAGE(S) OBTAINED DURING PROCEDURE. Abdomen/Pelvis CT 03/15/18 00:00 IMPRESSION: Post surgical changes, as above with a small amount of free intraperitoneal air in the upper abdomen and right upper quadrant. There is also a small amount of free fluid in this region as well as pneumobilia. Biliary stent in place. A drainage catheter projects over the right mid abdomen. Correlate with surgical history. Small right pleural effusion with adjacent consolidative change. Nonobstructing right renal calculi. Diffuse anasarca. Fatty infiltrative change to the liver. TECHNICAL DOCUMENTATION: Quality ID # 436: Final reports with documentation of one or more dose reduction techniques (e.g., Automated exposure control, adjustment of the mA and/or kV according to patient size, use of iterative reconstruction technique) copyright 2011 [employer]- All Rights Reserved Chest X-Ray 03/18/18 00:00 IMPRESSION: Interval intubation and placement of an enteric tube. Other findings are stable copyright 2010 [employer]- All Rights Reserved Chest/Abdomen CTA 03/18/18 00:00 IMPRESSION: 1 . Status post cholecystectomy with pneumobilia. Upper abdominal ascites and pneumoperitoneum consistent with postsurgical change. 2. Bibasilar atelectasis with pleural effusions. Status: Imported from PACS Assessment & Plan - Diagnosis (1) Respiratory failure Qualifiers: Chronicity: acute Is this a current diagnosis for this admission?: Yes Plan: Worsening, now requiring mechanical ventilation Secondary to poor respiratory effort/splinting stemming from post-op pain resulting in atelectasis & B/L pleural effusions b/l pleural effusions on CTA R>L no change with diuresis --> infectious versus malignant History of COPD - 15 years 1.5 PPD Scheduled serevent, previously refused home dose spiriva and symbicort, states these give her chest pain PRN Xopenex nebulizer treatments (No Albuterol, patient reports it gives her anxiety) BIPAP initiated yesterday for respiratory distress but patient remained extremely tachypneic and tachycardic. She was intubated and placed on mechanical ventilation. (2) Sepsis Is this a current diagnosis for this admission?: Yes Plan: Sepsis with an unknown source Evidence by tachycardia, leukocyosis, fever (JETW358.2), tachypnea (RR 24-40) No evidence of PNA, blood cultures pending Urinalysis negative Lactate 1.3 Surgical incision is C/D/I JASKARAN draining yellow fluid Continue Vancomycin and Flagyl IV, initiated meropenem last night when patients respiratory status decompensated Previously received Cipro pre-operatively before Ex Lap, postoperatively received Ancef and Flagyl 03/06-03/13 (3) Hypoxia Is this a current diagnosis for this admission?: Yes Plan: see plan above (4) Gallbladder cancer Is this a current diagnosis for this admission?: Yes Plan: 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 Youngblood (5) Anxiety Is this a current diagnosis for this admission?: Yes Plan: Patient has a PMH of anxiety Family reports the patient has been significantly anxious while inpatient Was previously receiving 1 mg Ativan as needed, but nursing staff reported concerns that patient became very somnolent following administration. Decrease dose to 0.5 mg Ativan as needed (6) Hypotension Is this a current diagnosis for this admission?: Yes Plan: Requiring Junito-Synephrine GTT for MAP > 65 Did not use Levophed (1st line agent in Sepsis hypotension) due to significant tachycardia Sepsis versus hypovolemia Patient received multiple doses of Lasix in hopes of improving pleural effusions --> No significant impact Hgb increased from 9->12 indicative of some level of dehydration Administer albumin and initiate gentle IVF today See above regarding plan of care for sepsis (7) Postoperative pain Is this a current diagnosis for this admission?: Yes Plan: Status post cholecystectomy and ERCP with JASKARAN drain in place 2 mg morphine as needed (8) Full code status Is this a current diagnosis for this admission?: Yes - Time Time Spent with patient: 15-24 minutes Total Critical Time (Minutes): 15 Medications reviewed and adjusted accordingly: Yes Anticipated discharge: Home - Inpatient Certification Based on my medical assessment, after consideration of the patient's comorbidities, presenting symptoms, or acuity I expect that the services needed warrant INPATIENT care.: Yes I certify that my determination is in accordance with my understanding of Medicare's requirements for reasonable and necessary INPATIENT services [42 CFR 412.3e].: Yes Medical Necessity: Need Close Monitoring Due to Risk of Patient Decompensation, Need For Continuous Telemetry Monitoring, Need for IV Antibiotics, Need for Surgery, Risk of Complication if Not Cared For in Hospital - Plan Summary Plan Summary: IR guided thoracentesis perihepatic fluid. IV antibiotics. Mechanical ventilation. Junito-Synephrine GTT for MAP>65
[2018-03-19] MEDS: MORPHINE SULFATE 10 MG/ML INJ IV PRN ×3 (13:31→22:29)
--- NOTE | 2018-03-19 17:28 | Progress Note ---
Provider Note Provider Note: ID Consult - Brief Note Asked by Pharmacy to review current antibiotics. Pt was admitted on 03/06 for radical cholecystectomy with lymph node dissection on 03/06. Hospitalization complicated by bile leak. She underwent ERCP, CBD stent placement, and sludge extraction and subsequently developed tachycardia, tachypnea, fever, leukocytosis. Most recently, pt was intubated for respiratory failure failing a trial of noninvasive ventilation. IR drainage of fluid collection over R hepatic lobe is planned. Currently, pt is on vancomycin, Flagyl and meropenem empirically. Broad spectrum empiric antimicrobial therapy is not unreasonable in critically ill pt with healthcare/hospital-acquired source of sepsis. Consider discontinuing Flagyl, however, as it is redundant with meropenem in anaerobic activity. Azam Vela MD [facility] pager [phone]
[2018-03-19] MEDS: ACETAMINOPHEN 325 MG TABLET NG PRN (18:06)
[2018-03-20] MEDS: MORPHINE SULFATE 10 MG/ML INJ IV PRN ×2 (00:29→20:02)
[2018-03-20] MEDS: INSULIN REG, HUMAN 100 UNIT/ML 3 ML VIAL (PYX) SUBCUT SCH ×4 (00:45→17:44)
[2018-03-20] MEDS: LEVALBUTEROL HCL NEB 0.63 MG/3 ML AMPUL NEB SCH ×4 (01:49→20:35)
[2018-03-20] MEDS: MIDAZOLAM HCL 50 MG/100 ML RTUINJ IV PRN ×2 (02:40→05:49)
[2018-03-20] MEDS: VANCOMYCIN HCL 1,250 MG in DEXTROSE 5%-WATER 250 ML IV SCH ×3 (02:40→17:47)
[2018-03-20] MEDS: ACETAMINOPHEN 1,000 MG/100 ML RTUPB IV PRN ×3 (02:43→19:44)
[2018-03-20] MEDS: MEROPENEM 1 GM in NORMAL SALINE 50 ML IV SCH ×3 (02:43→17:47)
[2018-03-20 05:48] LABS: ABSOLUTE LYMPHOCYTES (AUTO) 0.9 10^3/uL (0.5-4.7); ABSOLUTE MONOCYTES (AUTO) 0.2 10^3/uL (0.1-1.4); ABSOLUTE NEUT (AUTO) 12.3 10^3/uL (1.7-8.2); BASOPHILS % (AUTO) 0.1 % (0-2); EOSINOPHILS % (AUTO) 0.2 % (0-6); HEMATOCRIT 28.5 % (36.0-47.0); HEMOGLOBIN 9.5 g/dL (12.0-15.5); LYMPHOCYTES % (AUTO) 6.4 % (13-45); MEAN CORPUSCULAR HEMOGLOBIN 28.1 pg (27.0-33.4); MEAN CORPUSCULAR HGB CONC 33.5 g/dL (32.0-36.0); MEAN CORPUSCULAR VOLUME 84 fl (80-97); MONOCYTES % (AUTO) 1.8 % (3-13); PLATELET COUNT 412 10^3/uL (150-450); RED BLOOD COUNT 3.39 10^6/uL (3.72-5.28); RED CELL DISTRIBUTION WIDTH 14.7 % (11.5-14.0); SEGMENTED NEUTROPHILS % (AUTO) 91.5 % (42-78); TOTAL CELLS COUNTED % (AUTO) 100 %; WHITE BLOOD COUNT 13.5 10^3/uL (4.0-10.5)
[2018-03-20 05:49] LABS: ARTERIAL BLOOD BASE EXCESS 4.2 mmol/L; ARTERIAL BLOOD H2CO3 1.06 mmol/L (1.05-1.35); ARTERIAL BLOOD HCO3 27.3 mmol/L (20-24); ARTERIAL BLOOD O2 SATURATION 95.2 % (94-98); ARTERIAL BLOOD PCO2 35.2 mmHg (35-45); ARTERIAL BLOOD PH 7.51 (7.35-7.45); ARTERIAL BLOOD PO2 68.4 mmHg (80-100); ARTERIAL BLOOD TOTAL CO2 28.4 mmol/L (21-25)
[2018-03-20] MEDS: HEPARIN SOD (PORCINE) 5,000 UNIT/ML 1 ML SYRINGE SUBCUT SCH ×3 (05:49→22:10)
[2018-03-20 05:51] LABS: PROTHROMBIN TIME 18.8 SEC (11.4-15.4)
[2018-03-20 05:52] LABS: PARTIAL THROMBOPLASTIN TIME 37.7 SEC (23.5-35.8)
[2018-03-20 06:03] LABS: ARTERIAL BLOOD FIO2 45
[2018-03-20 06:11] LABS: ALANINE AMINOTRANSFERASE 32 U/L (9-52); ALBUMIN 1.7 g/dL (3.5-5.0); ALKALINE PHOSPHATASE 80 U/L (38-126); ANION GAP 7 (5-19); ASPARTATE AMINO TRANSFERASE 12 U/L (14-36); BILIRUBIN,DIRECT 0.3 mg/dL (0.0-0.4); BILIRUBIN,TOTAL 0.4 mg/dL (0.2-1.3); BLOOD UREA NITROGEN 10 mg/dL (7-20); CALCIUM 7.4 mg/dL (8.4-10.2); CARBON DIOXIDE 27 mmol/L (22-30); CHLORIDE 102 mmol/L (98-107); GLUCOSE 107 mg/dL (75-110); PHOSPHORUS 2.6 mg/dL (2.5-4.5); SODIUM 135.9 mmol/L (137-145); TOTAL PROTEIN 3.5 g/dL (6.3-8.2)
[2018-03-20] MEDS: TIOTROPIUM BROMIDE DPI 5 CAP/KIT (18 MCG/CAP) IH SCH (07:09)
--- NOTE | 2018-03-20 07:22 | PDOC PROGRESS REPORT ---
Subjective Progress Note for:: 03/20/18 Reason For Visit: GALLBLADDER CANCER Physical Exam Vital Signs: Temp Pulse Resp BP Pulse Ox 99.5 F 103 H 18 94/52 L 93 03/20/18 06:15 03/20/18 01:49 03/20/18 06:15 03/20/18 06:15 03/20/18 06:15 Intake & Output 03/19/18 03/20/18 03/21/18 06:59 06:59 06:59 Intake Total 3640 1681 40 Output Total 790 1645 Balance 2850 36 40 Weight 97.6 kg 97.6 kg General appearance: PRESENT: obese Respiratory exam: PRESENT: clear to auscultation christian Cardiovascular exam: PRESENT: RRR Pulses: PRESENT: normal radial pulses, normal femoral pulses GI/Abdominal exam: PRESENT: soft Results Laboratory Results: 03/20/18 05:30 03/20/18 05:30 03/19/18 03/19/18 03/20/18 06:53 06:53 05:30 WBC 18.2 H D RBC 3.77 Hgb 10.4 L Hct 31.5 L MCV 83 MCH 27.5 MCHC 32.9 RDW 14.7 H Plt Count 604 H Seg Neutrophils % Not Reportable Lymphocytes % Not Reportable Monocytes % Not Reportable Eosinophils % Not Reportable Basophils % Not Reportable Absolute Neutrophils Not Reportable Absolute Lymphocytes Not Reportable Absolute Monocytes Not Reportable Absolute Eosinophils Not Reportable Absolute Basophils Not Reportable Carbonic Acid 1.06 HCO3/H2CO3 Ratio 25:1 ABG pH 7.51 H ABG pCO2 35.2 ABG pO2 68.4 L ABG HCO3 27.3 H ABG O2 Saturation 95.2 ABG Base Excess 4.2 FiO2 45 Sodium 136.0 L Potassium 3.9 Chloride 101 Carbon Dioxide 27 Anion Gap 8 BUN 7 Creatinine 0.47 L Est GFR ( Amer) > 60 Est GFR (Non-Af Amer) > 60 Glucose 134 H Calcium 7.6 L Phosphorus Magnesium Total Bilirubin 0.7 AST 15 ALT 34 Alkaline Phosphatase 115 Total Protein 4.2 L Albumin 2.2 L 03/20/18 03/20/18 05:30 05:30 WBC 13.5 H RBC 3.39 L Hgb 9.5 L Hct 28.5 L MCV 84 MCH 28.1 MCHC 33.5 RDW 14.7 H Plt Count 412 Seg Neutrophils % 91.5 H Lymphocytes % 6.4 L Monocytes % 1.8 L Eosinophils % 0.2 Basophils % 0.1 Absolute Neutrophils 12.3 H Absolute Lymphocytes 0.9 Absolute Monocytes 0.2 Absolute Eosinophils 0.0 Absolute Basophils 0.0 Carbonic Acid HCO3/H2CO3 Ratio ABG pH ABG pCO2 ABG pO2 ABG HCO3 ABG O2 Saturation ABG Base Excess FiO2 Sodium 135.9 L Potassium 3.0 L* Chloride 102 Carbon Dioxide 27 Anion Gap 7 BUN 10 Creatinine 0.50 L Est GFR ( Amer) > 60 Est GFR (Non-Af Amer) > 60 Glucose 107 Calcium 7.4 L Phosphorus 2.6 Magnesium 1.5 L Total Bilirubin 0.4 AST 12 L ALT 32 Alkaline Phosphatase 80 Total Protein 3.5 L Albumin 1.7 L 03/16/18 03/18/18 03/18/18 05:06 04:45 19:10 CK-MB (CK-2) 1.10 Troponin I < 0.012 < 0.012 NT-Pro-B Natriuret Pep 513 03/18/18 19:50 CK-MB (CK-2) Troponin I NT-Pro-B Natriuret Pep 272 Impressions: KUB X-Ray 03/11/18 00:00 IMPRESSION: There are mildly dilated small bowel loops throughout the left abdomen, developing ileus or obstruction possible. Hepatobiliary Scan Nuclear Medicine 03/12/18 00:00 IMPRESSION: Bile leak in the gallbladder fossa. Catheter Placement 03/14/18 00:00 IMPRESSION: IMAGE(S) OBTAINED DURING PROCEDURE. Fluoroscopy 03/14/18 00:00 IMPRESSION: IMAGE(S) OBTAINED DURING PROCEDURE. Abdomen/Pelvis CT 03/15/18 00:00 IMPRESSION: Post surgical changes, as above with a small amount of free intraperitoneal air in the upper abdomen and right upper quadrant. There is also a small amount of free fluid in this region as well as pneumobilia. Biliary stent in place. A drainage catheter projects over the right mid abdomen. Correlate with surgical history. Small right pleural effusion with adjacent consolidative change. Nonobstructing right renal calculi. Diffuse anasarca. Fatty infiltrative change to the liver. TECHNICAL DOCUMENTATION: Quality ID # 436: Final reports with documentation of one or more dose reduction techniques (e.g., Automated exposure control, adjustment of the mA and/or kV according to patient size, use of iterative reconstruction technique) copyright 2010 [employer]- All Rights Reserved Chest X-Ray 03/18/18 00:00 IMPRESSION: Interval intubation and placement of an enteric tube. Other findings are stable copyright 2010 [employer]- All Rights Reserved Chest/Abdomen CTA 03/18/18 00:00 IMPRESSION: 1 . Status post cholecystectomy with pneumobilia. Upper abdominal ascites and pneumoperitoneum consistent with postsurgical change. 2. Bibasilar atelectasis with pleural effusions. Assessment & Plan - Plan Summary Plan Summary: remained stable overnight this am sedated with versed does open eyes to command labs reviwed wbc 13.5 h/h stable lft's stable plan will plan on ct guided perc drain of fluid collectiion cont iv abx and vent support
[2018-03-20] MEDS ORDERED: DEXTROSE 10%-WATER 1,000 ML IV PRN (08:00)
[2018-03-20 08:13] LABS: PREALBUMIN 3.4 mg/dL (17.6-36.0)
[2018-03-20] MEDS: POTASSIUM CHLORIDE 20 MEQ/50 ML RTU IV SCH ×2 (08:15→10:31)
--- NOTE | 2018-03-20 09:04 | PDOC PROGRESS REPORT ---
Subjective Progress Note for:: 03/20/18 Subjective:: Patient still on pressors, but breathing over vent so should not be hopefully hard to extubate when she is appropriate. Today I had a long discussion with the , spent greater than 45 minutes in discussion. Reason For Visit: GALLBLADDER CANCER Physical Exam Vital Signs: Temp Pulse Resp BP Pulse Ox 99.9 F 85 18 95/60 L 97 03/20/18 08:00 03/20/18 08:30 03/20/18 08:30 03/20/18 08:00 03/20/18 08:30 Intake & Output 03/19/18 03/20/18 03/21/18 06:59 06:59 06:59 Intake Total 3640 1681 63 Output Total 790 1645 35 Balance 2850 36 28 Weight 97.6 kg 97.6 kg General appearance: PRESENT: no acute distress, well-developed, well-nourished Head exam: PRESENT: atraumatic, normocephalic Eye exam: PRESENT: conjunctiva pink, EOMI, PERRLA. ABSENT: scleral icterus Ear exam: PRESENT: normal external ear exam Mouth exam: PRESENT: moist, tongue midline Neck exam: ABSENT: carotid bruit, JVD, lymphadenopathy, thyromegaly Respiratory exam: PRESENT: clear to auscultation christian. ABSENT: rales, rhonchi, wheezes Cardiovascular exam: PRESENT: RRR. ABSENT: diastolic murmur, rubs, systolic murmur Pulses: PRESENT: normal dorsalis pedis pul Vascular exam: PRESENT: normal capillary refill GI/Abdominal exam: PRESENT: normal bowel sounds, soft. ABSENT: distended, gua rding, mass, organolmegaly, rebound, tenderness Rectal exam: PRESENT: deferred Extremities exam: PRESENT: full ROM. ABSENT: calf tenderness, clubbing, pedal edema Neurological exam: PRESENT: alert, awake, oriented to person, oriented to place, oriented to time, oriented to situation, CN II-XII grossly intact. ABSENT: harjinder r sensory deficit Psychiatric exam: PRESENT: appropriate affect, normal mood. ABSENT: homicidal ideation, suicidal ideation Skin exam: PRESENT: dry, intact, warm. ABSENT: cyanosis, rash Results Laboratory Results: 03/20/18 05:30 03/20/18 05:30 03/20/18 03/20/18 03/20/18 05:30 05:30 05:30 WBC 13.5 H RBC 3.39 L Hgb 9.5 L Hct 28.5 L MCV 84 MCH 28.1 MCHC 33.5 RDW 14.7 H Plt Count 412 Seg Neutrophils % 91.5 H Lymphocytes % 6.4 L Monocytes % 1.8 L Eosinophils % 0.2 Basophils % 0.1 Absolute Neutrophils 12.3 H Absolute Lymphocytes 0.9 Absolute Monocytes 0.2 Absolute Eosinophils 0.0 Absolute Basophils 0.0 Carbonic Acid 1.06 HCO3/H2CO3 Ratio 25:1 ABG pH 7.51 H ABG pCO2 35.2 ABG pO2 68.4 L ABG HCO3 27.3 H ABG O2 Saturation 95.2 ABG Base Excess 4.2 FiO2 45 Sodium 135.9 L Potassium 3.0 L* Chloride 102 Carbon Dioxide 27 Anion Gap 7 BUN 10 Creatinine 0.50 L Est GFR ( Amer) > 60 Est GFR (Non-Af Amer) > 60 Glucose 107 Calcium 7.4 L Phosphorus 2.6 Magnesium 1.5 L Total Bilirubin 0.4 AST 12 L ALT 32 Alkaline Phosphatase 80 Total Protein 3.5 L Albumin 1.7 L Prealbumin Triglycerides 03/20/18 05:30 WBC RBC Hgb Hct MCV MCH MCHC RDW Plt Count Seg Neutrophils % Lymphocytes % Monocytes % Eosinophils % Basophils % Absolute Neutrophils Absolute Lymphocytes Absolute Monocytes Absolute Eosinophils Absolute Basophils Carbonic Acid HCO3/H2CO3 Ratio ABG pH ABG pCO2 ABG pO2 ABG HCO3 ABG O2 Saturation ABG Base Excess FiO2 Sodium Potassium Chloride Carbon Dioxide Anion Gap BUN Creatinine Est GFR ( Amer) Est GFR (Non-Af Amer) Glucose Calcium Phosphorus Magnesium Total Bilirubin AST ALT Alkaline Phosphatase Total Protein Albumin Prealbumin 3.4 L Triglycerides 90 03/16/18 03/18/18 03/18/18 05:06 04:45 19:10 CK-MB (CK-2) 1.10 Troponin I < 0.012 < 0.012 NT-Pro-B Natriuret Pep 513 03/18/18 19:50 CK-MB (CK-2) Troponin I NT-Pro-B Natriuret Pep 272 Impressions: KUB X-Ray 03/11/18 00:00 IMPRESSION: There are mildly dilated small bowel loops throughout the left abdomen, developing ileus or obstruction possible. Hepatobiliary Scan Nuclear Medicine 03/12/18 00:00 IMPRESSION: Bile leak in the gallbladder fossa. Catheter Placement 03/14/18 00:00 IMPRESSION: IMAGE(S) OBTAINED DURING PROCEDURE. Fluoroscopy 03/14/18 00: IMPRESSION: IMAGE(S) OBTAINED DURING PROCEDURE. Abdomen/Pelvis CT 03/15/18 00:00 IMPRESSION: Post surgical changes, as above with a small amount of free intraperitoneal air in the upper abdomen and right upper quadrant. There is also a small amount of free fluid in this region as well as pneumobilia. Biliary stent in place. A drainage catheter projects over the right mid abdomen. Correlate with surgical history. Small right pleural effusion with adjacent consolidative change. Nonobstructing right renal calculi. Diffuse anasarca. Fatty infiltrative change to the liver. TECHNICAL DOCUMENTATION: Quality ID # 436: Final reports with documentation of one or more dose reduction techniques (e.g., Automated exposure control, adjustment of the mA and/or kV according to patient size, use of iterative reconstruction technique) copyright 2010 [employer]- All Rights Reserved Chest X-Ray 03/18/18 00:00 IMPRESSION: Interval intubation and placement of an enteric tube. Other findings are stable copyright 2010 [employer]- All Rights Reserved Chest/Abdomen CTA 03/18/18 00:00 IMPRESSION: 1 . Status post cholecystectomy with pneumobilia. Upper abdominal ascites and pneumoperitoneum consistent with postsurgical change. 2. Bibasilar atelectasis with pleural effusions. Assessment & Plan - Diagnosis (1) Gallbladder cancer Is this a current diagnosis for this admission?: Yes Plan: Plan for continued chemotherapy as an outpatient when ready. But we had a henri discussion with the about prognosis and next steps of care, he is realistic about goals, and we will follow closely with continued aggressive therapy for now. - Time Time Spent with patient: 35 or more minutes - Inpatient Certification Based on my medical assessment, after consideration of the patient's comorbidities, presenting symptoms, or acuity I expect that the services needed warrant INPATIENT care.: Yes I certify that my determination is in accordance with my understanding of Medicare's requirements for reasonable and necessary INPATIENT services [42 CFR 412.3e].: Yes Medical Necessity: Need For IV Fluids, Need For Continuous Telemetry Monitoring, Need for Nebulizer Therapy and Monitoring of Response, Need for Neurological Checks, Risk of Complication if Not Cared For in Hospital
[2018-03-20] MEDS ORDERED: FENTANYL CITRATE INJ/PF 100 MCG/2 ML AMPUL ONE (09:29)
[2018-03-20] MEDS ORDERED: LIDOCAINE 1% INJ-PF (10 MG/ML) 30 ML SDV ONE (09:29)
[2018-03-20] MEDS: FAMOTIDINE INJ/PF 20 MG/2 ML SDV IV SCH ×2 (10:31→22:10)
--- NOTE | 2018-03-20 10:50 | RADIOLOGY REPORT (SQ) ---
EXAM DESCRIPTION: CT DRAINAGE RETRO/PERITONEAL COMPLETED DATE/TIME: 03/20/2018 10:05 am REASON FOR STUDY: subdiaphramatic fluid collection C23 MALIGNANT NEOPLASM OF GALLBLADDER COMPARISON: None. FLUORO TIME: 8 seconds 36 images saved to PACS. LIMITATIONS: None. PROCEDURE: After obtaining informed consent, the patient was brought to the CT suite and was placed supine on the CT gurney. The patient was prepped and draped in the usual sterile fashion . Axial palmira ges were obtained for targeting of thehepatic subcapsular fluid collection. An appropriate access sit e was selected. IV conscious sedation was administered and physician direction by the registered imelda se using 0 milligrams of Versed and 50 micrograms of fentanyl. Physiologic monitoring was provided be fore, during, and after sedation. The total sedation time was 20 minutes. Documentation face to face time, the performing proceduralist, spent monitoring the patient: 10minute s. Using CT guidance, coaxial needle was placed in the fluid collection and purulent fluid aspirated. T he needle was exchanged for a guidewire. Following serial dilation, a 10 Irish APD drain was placed and secured to drainage apparatus. A sterile dressing was applied. There were no immediate complic ations. Fluid was sent to the lab for analysis. IMPRESSION: Successful CT-guided placement of drainage catheter. COMMENT: Patient medication list reviewed:Yes- Quality ID# 130:Eligible professional attests to docu menting in the medical record they obtained, updated, or reviewed the patient's current medications. Quality ID #76: The patient was prepped and draped using maximum sterile barrier technique including cap, mask, sterile gown, sterile gloves, a large sterile sheet, hand hygiene, and 2% Chlorhexidine fo r cutaneous antisepsis. When ultrasound is used, sterile ultrasound techniques are followed requiring sterile gel and sterile probes. Quality ID 145: Final reports for procedures using fluoroscopy that document radiation exposure yanique raquel, or exposure time and number of fluorographic images (if radiation exposure indices are not avail able) Quality ID# 436: Final reports with documentation of one or more dose reduction techniques (e.g., Aut omated exposure control, adjustment of the mA and/or kV according to patient size, use of iterative r econstruction technique) TECHNICAL DOCUMENTATION: JOB ID: [id number] [employer]- All Rights Reserved Reading location - IP/workstation name: [email or web address]
[2018-03-20] MEDS: SALMETEROL XINAFOATE DISKUS 50 MCG/1 DOSE 28 DOSE IH SCH ×2 (11:37→22:11)
[2018-03-20 12:20] LABS: FLUID APPEARANCE TURBID; FLUID COLOR GREEN; FLUID SOURCE ASCITES; FLUID TYPE PERITONEAL; FLUID VISCOSITY LIQUID
[2018-03-20] MEDS: ALBUMIN HUMAN 12.5 GM/50 ML RTUINJ IV SCH ×2 (13:13→13:25)
[2018-03-20] MEDS ORDERED: NORMAL SALINE 500 ML IV PRN (13:15)
[2018-03-20] MEDS: MAGNESIUM SULFATE/D5W 1 GM/100 ML RTUPB IV SCH ×2 (13:23→14:21)
[2018-03-20] MEDS: POTASSI CL 20 MEQ/1/2NS 1L 20 MEQ/1,000 ML RTUINJ IV PRN (13:23)
[2018-03-20] MEDS ORDERED: NORMAL SALINE 500 ML IV ONE (13:30)
[2018-03-20] MEDS: MAGNESIUM SULFATE 1 GM/D5W 100 ML IV SCH (14:21)
--- NOTE | 2018-03-20 16:39 | RADIOLOGY REPORT (SQ) ---
EXAM DESCRIPTION: ACUTE ABDOMEN SERIES COMPLETED DATE/TIME: 03/20/2018 4:31 pm REASON FOR STUDY: post op C23 MALIGNANT NEOPLASM OF GALLBLADDER COMPARISON: None. NUMBER OF VIEWS: Three views. TECHNIQUE: Frontal chest, supine abdomen and upright/decubitus abdomen radiographic images acquired. LIMITATIONS: None. FINDINGS: Endotracheal tube between thoracic inlet and leonardo. Nasogastric tube tip overlying stoma ch. Percutaneous drain from a right lateral approach with tip in the right upper quadrant. Right up per quadrant skin aure. Small bowel loops upper limits of normal in size to left of midline. No free air. Santos catheter in urinary bladder. IMPRESSION: Postop ileus. TECHNICAL DOCUMENTATION: JOB ID: [id number] [employer]- All Rights Reserved Reading location - IP/workstation name: [email or web address]
[2018-03-20] MEDS: DEXTROSE 5%-WATER 250 ML with PHENYLEPHRINE HCL 40 MG IV PRN ×2 (16:49)
[2018-03-20 17:26] LABS: ANION GAP 6 (5-19); BLOOD UREA NITROGEN 11 mg/dL (7-20); CALCIUM 7.4 mg/dL (8.4-10.2); CARBON DIOXIDE 26 mmol/L (22-30); CHLORIDE 103 mmol/L (98-107); GLUCOSE 85 mg/dL (75-110); POTASSIUM 3.4 mmol/L (3.6-5.0); SODIUM 134.8 mmol/L (137-145)
--- NOTE | 2018-03-20 18:32 | PDOC PROGRESS REPORT ---
Subjective Progress Note for:: 03/20/18 Subjective:: 63 y.o. F with HTN, asthma and COPD admitted to [facility] 03/01/2018 for ch olecystectomy to remove cancerous gallbladder. Within days of surgery there was a large amount of output noted in her JASKARAN drain. The patient underwent an ERCP on 03/14/2018 with CBD stent placement. Within 24hrs she began developing signs of sepsis and the hospitalist service was consulted for medical management. Follow up CT Abd/Pelvis showed small amount of free air in RUQ and pneumobilia, small a mount of free fluid surrounding the liver and in RUQ, and a small R pleural effusion. The patient was seen on morning rounds with her and daughter present and again this afternoon. She is off sedation, but remains minimally responsive to pain, mechanically ventilated. She continues to require Junito-Synephrine for blood pressure support. Currently on IV vancomycin and meropenem for sepsis secondary to bile leak following radical cholecystectomy and partial hepatectomy for metastatic gallbladder cancer. Percutaneous drain placed by interventional radiology today; ~500 mL foul smelling, thick, greenish fluid output. Santos catheter is in place; minimal urinary output today (300 ml/12 hr shift). Patient w/ third spacing; replacing IV albumin with plans for TPN to begin tonight. The patient's family's questions were answered to the best of my ability; facilitated conference with the patient advocate. Remained in close communication with nursing; concerns addressed as presented. Reason For Visit: GALLBLADDER CANCER Physical Exam Vital Signs: Temp Pulse Resp BP Pulse Ox 100.6 F H 84 24 H 94/56 L 93 03/20/18 16:00 03/20/18 16:00 03/20/18 16:00 03/20/18 16:00 03/20/18 16:28 Intake & Output 03/19/18 03/20/18 03/21/18 06:59 06:59 06:59 Intake Total 3640 2081 1930 Output Total 790 1645 1017 Balance 2850 436 913 Weight 97.6 kg 97.6 kg 97.6 kg General appearance: PRESENT: obese, well-developed, well-nourished, other - Acutely ill-appearing Head exam: PRESENT: atraumatic, normocephalic Eye exam: PRESENT: conjunctiva pink, PERRLA. ABSENT: scleral icterus Mouth exam: PRESENT: moist, tongue midline, other - ET/OG tube Neck exam: ABSENT: carotid bruit, JVD, lymphadenopathy, thyromegaly Respiratory exam: PRESENT: decreased breath sounds - Bibasilar, symmetrical, other - Mechanically ventilated. ABSENT: rales, rhonchi, wheezes Cardiovascular exam: PRESENT: RRR, +S1, +S2. ABSENT: diastolic murmur, rubs, systolic murmur Pulses: PRESENT: +1 pedal pulses bilateral Vascular exam: PRESENT: normal capillary refill GI/Abdominal exam: PRESENT: hypoactive bowel sounds, soft. ABSENT: distended, guarding, mass, organolmegaly, rebound, tenderness Rectal exam: PRESENT: deferred Gentrourinary exam: PRESENT: indwelling catheter Extremities exam: PRESENT: +1 edema - BUE, +2 edema - BLE. ABSENT: calf tenderness, clubbing, pedal edema Neurological exam: PRESENT: other - Sedation held this morning; minimally responsive, slight withdrawal to pain. ABSENT: motor sensory deficit Skin exam: PRESENT: dry, warm, other - Surgical incisions/drains to abdomen. ABSENT: cyanosis, rash Results Laboratory Results: 03/20/18 05:30 03/20/18 16:55 03/20/18 03/20/18 03/20/18 05:30 05:30 05:30 WBC 13.5 H RBC 3.39 L Hgb 9.5 L Hct 28.5 L MCV 84 MCH 28.1 MCHC 33.5 RDW 14.7 H Plt Count 412 Seg Neutrophils % 91.5 H Lymphocytes % 6.4 L Monocytes % 1.8 L Eosinophils % 0.2 Basophils % 0.1 Absolute Neutrophils 12.3 H Absolute Lymphocytes 0.9 Absolute Monocytes 0.2 Absolute Eosinophils 0.0 Absolute Basophils 0.0 Carbonic Acid 1.06 HCO3/H2CO3 Ratio 25:1 ABG pH 7.51 H ABG pCO2 35.2 ABG pO2 68.4 L ABG HCO3 27.3 H ABG O2 Saturation 95.2 ABG Base Excess 4.2 FiO2 45 Sodium 135.9 L Potassium 3.0 L* Chloride 102 Carbon Dioxide 27 Anion Gap 7 BUN 10 Creatinine 0.50 L Est GFR ( Amer) > 60 Est GFR (Non-Af Amer) > 60 Glucose 107 Lactic Acid Calcium 7.4 L Phosphorus 2.6 Magnesium 1.5 L Total Bilirubin 0.4 AST 12 L ALT 32 Alkaline Phosphatase 80 Total Protein 3.5 L Albumin 1.7 L Prealbumin Triglycerides Fluid Type Fluid Source Fluid Color Fluid Appearance Fluid Viscosity Fluid WBC Fluid RBC 03/20/18 03/20/18 03/20/18 05:30 09:50 12:05 WBC RBC Hgb Hct MCV MCH MCHC RDW Plt Count Seg Neutrophils % Lymphocytes % Monocytes % Eosinophils % Basophils % Absolute Neutrophils Absolute Lymphocytes Absolute Monocytes Absolute Eosinophils Absolute Basophils Carbonic Acid HCO3/H2CO3 Ratio ABG pH ABG pCO2 ABG pO2 ABG HCO3 ABG O2 Saturation ABG Base Excess FiO2 Sodium Potassium Chloride Carbon Dioxide Anion Gap BUN Creatinine Est GFR ( Amer) Est GFR (Non-Af Amer) Glucose Lactic Acid 0.7 Calcium Phosphorus Magnesium Total Bilirubin AST ALT Alkaline Phosphatase Total Protein Albumin Prealbumin 3.4 L Triglycerides 90 Fluid Type PERITONEAL Fluid Source ASCITES Fluid Color GREEN Fluid Appearance TURBID Fluid Viscosity LIQUID Fluid WBC 0 Fluid RBC 0 03/20/18 16:55 WBC RBC Hgb Hct MCV MCH MCHC RDW Plt Count Seg Neutrophils % Lymphocytes % Monocytes % Eosinophils % Basophils % Absolute Neutrophils Absolute Lymphocytes Absolute Monocytes Absolute Eosinophils Absolute Basophils Carbonic Acid HCO3/H2CO3 Ratio ABG pH ABG pCO2 ABG pO2 ABG HCO3 ABG O2 Saturation ABG Base Excess FiO2 Sodium 134.8 L Potassium 3.4 L Chloride 103 Carbon Dioxide 26 Anion Gap 6 BUN 11 Creatinine 0.53 Est GFR ( Amer) > 60 Est GFR (Non-Af Amer) > 60 Glucose 85 Lactic Acid Calcium 7.4 L Phosphorus Magnesium Total Bilirubin AST ALT Alkaline Phosphatase Total Protein Albumin Prealbumin Triglycerides Fluid Type Fluid Source Fluid Color Fluid Appearance Fluid Viscosity Fluid WBC Fluid RBC 03/16/18 03/18/18 03/18/18 05:06 04:45 19:10 CK-MB (CK-2) 1.10 Troponin I < 0.012 < 0.012 NT-Pro-B Natriuret Pep 513 03/18/18 03/20/18 19:50 12:05 CK-MB (CK-2) Troponin I NT-Pro-B Natriuret Pep 272 289 Impressions: KUB X-Ray 03/11/18 00:00 IMPRESSION: There are mildly dilated small bowel loops throughout the left abdomen, developing ileus or obstruction possible. Hepatobiliary Scan Nuclear Medicine 03/12/18 00:00 IMPRESSION: Bile leak in the gallbladder fossa. Catheter Placement 03/14/18 00:00 IMPRESSION: IMAGE(S) OBTAINED DURING PROCEDURE. Fluoroscopy 03/14/18 00:00 IMPRESSION: IMAGE(S) OBTAINED DURING PROCEDURE. Abdomen/Pelvis CT 03/15/18 00:00 IMPRESSION: Post surgical changes, as above with a small amount of free intraperitoneal air in the upper abdomen and right upper quadrant. There is also a small amount of free fluid in this region as well as pneumobilia. Biliary stent in place. A drainage catheter projects over the right mid abdomen. Correlate with surgical history. Small right pleural effusion with adjacent consolidative change. Nonobstructing right renal calculi. Diffuse anasarca. Fatty infiltrative change to the liver. TECHNICAL DOCUMENTATION: Quality ID # 436: Final reports with documentation of one or more dose reduction techniques (e.g., Automated exposure control, adjustment of the mA and/or kV according to patient size, use of iterative reconstruction technique) copyright 2011 [employer]- All Rights Reserved Chest X-Ray 03/18/18 00:00 IMPRESSION: Interval intubation and placement of an enteric tube. Other findings are stable copyright 2010 [employer]- All Rights Reserved Chest/Abdomen CTA 03/18/18 00:00 IMPRESSION: 1 . Status post cholecystectomy with pneumobilia. Upper abdominal ascites and pneumoperitoneum consistent with postsurgical change. 2. Bibasilar atelectasis with pleural effusions. Acute Abdomen Series 03/20/18 00:00 IMPRESSION: Postop ileus. Retroperitoneal Abscess Drainage 03/20/18 00:00 IMPRESSION: Successful CT-guided placement of drainage catheter. Assessment & Plan - Diagnosis (1) Sepsis Is this a current diagnosis for this admission?: Yes Plan: Sepsis with an unknown source; leukocytosis trending down, lactic acid nml, remains febrile (101.3) Evidence by tachycardia, leukocyosis, fever (OBVY675.2), tachypnea (RR 24-40) No evidence of PNA, blood cultures negative at 4 days Repeat blood cultures pending Urinalysis negative Lactate 1.3 -> 0.7 (today) Surgical incision is C/D/I Now s/p percutaneous drain placement. Peritoneal fluid C/S pending. Continue Vancomycin and Meropenem. Previously received Cipro pre-operatively before Ex Lap, postoperatively received Ancef and Flagyl 03/06-03/13 Infectious Disease is consulted; appreciate Dr. Vela's evaluation and recommendations. (2) Acute respiratory failure with hypoxia Is this a current diagnosis for this admission?: Yes Plan: Secondary to poor respiratory effort/splinting stemming from postoperative pain resulting in atelectasis and bilateral pleural effusions; complicated by sepsis. Now requiring mechanical ventilation. Bilateral pleural effusions on CTA; R>L. Continue to be present on CXR today ProBNP 659, echocardiogram is pending, no history of CHF. No change following diuresis --> infectious versus malignant Continue supplemental oxygen, mechanical ventilation as needed to maintain oxygen saturations. Scheduled and as needed nebulizer treatments. Pulmonology is consulted; appreciate Dr. Booth's assistance. Will discuss with Pulm/IR/Surgery tomorrow; consider diagnostic thoracentesis. 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 Tadeo's assistance. Surgery is primary; appreciate Dr. Michaud's expertise with surgical/oncological cases. (4) Hypotension Is this a current diagnosis for this admission?: Yes Plan: Secondary to sepsis. Requiring Junito-Synephrine GTT for MAP > 65 Did not use Levophed (1st line agent in Sepsis hypotension) due to significant tachycardia Administer albumin and initiate gentle IVF today See above regarding plan of care for sepsis Providing maintenance IV fluids, albumin replacement, and planning for TPN initiation this evening. (5) Postoperative pain Is this a current diagnosis for this admission?: Yes Plan: Status post cholecystectomy and ERCP with JASKARAN and percutaneous drains in place. Postoperative pain may have contributed to her acute respiratory failure with hypoxia secondary to splinting. Continue providing analgesics as needed. Patient is currently sedated and mechanically ventilated. (6) Anxiety Is this a current diagnosis for this admission?: Yes Plan: Patient has a PMH of anxiety Family reports the patient has been significantly anxious while inpatient Was previously receiving 1 mg Ativan as needed, but nursing staff reported concerns that patient became very somnolent following administration. Monitor Versed gtt closely; continue sedation vacations (defer to Pulmonology for vent management). (7) Full code status Is this a current diagnosis for this admission?: Yes - Time Time Spent with patient: 35 or more minutes Medications reviewed and adjusted accordingly: Yes - Inpatient Certification Based on my medical assessment, after consideration of the patient's comorbidities, presenting symptoms, or acuity I expect that the services needed warrant INPATIENT care.: Yes I certify that my determination is in accordance with my understanding of Medicare's requirements for reasonable and necessary INPATIENT services [42 CFR 412.3e].: Yes Medical Necessity: Significant Comorbidiites Make Outpatient Treatment Too Risky, Need Close Monitoring Due to Risk of Patient Decompensation, Need For IV Fluids, Need For Continuous Telemetry Monitoring, Need for Pain Control, Need for IV Antibiotics, Need for Surgery, Risk of Complication if Not Cared For in Hospital, Risk of Diagnosis Which Will Require Inpatient Eval/Care/Monitoring - Plan Summary Plan Summary: Patient's HPI, hospital course, laboratory/imaging findings, and assessment discussed with Dr. Mcintyre. Plan of care developed with his assistance.
[2018-03-20] MEDS: AMINO ACIDS 5%/D25W 1,000 ML IV PRN (18:39)
[2018-03-20] MEDS ORDERED: HETASTARCH/NORMAL SALINE 500 ML IV ONE (19:00)
--- NOTE | 2018-03-20 20:52 | XCELERA REPORT ---
[address] [address] Transthoracic Echocardiogram Report Name: CARMEN RUSSO Age: 63 yrs Gender: Female : 1955 Patient Status: Inpatient Patient Location: ICU^610^A Study Date: 03/20/2018 01:42 PM Height: 65 in Weight: 215 lb BSA: 2.0 m2 Procedure: A two-dimensional transthoracic echocardiogram with color flow and Doppler was performed. Study Quality: Fair. Reason For Study: sepsis, hypotension History: sepsis, hypotension. Ordering Physician: CANDIDO SERRATO Performed By: Susanen John Interpretation Summary The left ventricle is normal in size. There is normal left ventricular wall thickness. The left ventricular ejection fraction is normal. LV EF is 65% Doppler measurements suggest normal left ventricular diastolic function The left ventricular wall motion is normal. There is no thrombus. The right ventricle is grossly normal size. The right atrium is normal. The left atrial size is normal. The interatrial septum is intact with no evidence for an atrial septal defect. There is no evidence of mitral valve prolapse. There is no vegetation seen on the mitral valve. There is no mitral valve stenosis. There is a trace to mild amount of mitral regurgitation There is no aortic valvular vegetation. There is no aortic valve stenosis There is no LVOT obstruction. No aortic regurgitation is present. There is no tricuspid stenosis. There is a trace to mild amount of tricuspid regurgitation There is mild pulmonary hypertension by echo RVSPis 34 mm of Hg , with RA mean of 10. There is no pulmonic valvular stenosis. There is a mild amount of pulmonic regurgitation The aortic root is normal size. There is no pericardial effusion. MMode/2D Measurements & Calculations RVDd: 3.8 cm LVIDd: 4.5 cm FS: 37.3 % Ao root diam: 2.8 cm IVSd: 0.83 cm LVIDs: 2.8 cm EDV(Teich): Ao root area: LVPWd: 0.78 cm 93.0 ml 6.1 cm2 ESV(Teich): LA dimension: 3.9 cm 30.3 ml EF(Teich): 67.4 % LVLd ap4: 8.1 cm SV(MOD-sp4): EDV(MOD-sp4): 53.0 ml 86.0 ml LVLs ap4: 6.7 cm ESV(MOD-sp4): 33.0 ml EF(MOD-sp4): 61.6 % Doppler Measurements & Calculations MV E max felicia: MV P1/2t max felicia: Ao V2 max: LV V1 max P.4 cm/sec 85.9 cm/sec 169.1 cm/sec 9.0 mmHg MV A max felicia: MV P1/2t: 71.1 msec Ao max PG: LV V1 max: 82.4 cm/sec MVA(P1/2t): 3.1 cm2 11.4 mmHg 149.7 cm/sec MV E/A: 1.0 MV dec slope: 353.6 cm/sec2 MV dec time: 0.24 sec PA V2 max: PI end-d felicia: TR max felicia: MV P1/2t-pr_phl: 93.8 cm/sec 117.3 cm/sec 245.3 cm/sec 71.1 msec PA max PG: TR max P.5 mmHg 24.1 mmHg Left Ventricle The left ventricle is normal in size. There is normal left ventricular wall thickness. The left ventricular ejection fraction is normal. LV EF is 65%. Doppler measurements suggest normal left ventricular diastolic function. The left ventricular wall motion is normal. There is no thrombus. Right Ventricle The right ventricle is grossly normal size. Atria The right atrium is normal. The left atrial size is normal. The interatrial septum is intact with no evidence for an atrial septal defect. Mitral Valve There is no evidence of mitral valve prolapse. There is no vegetation seen on the mitral valve. There is no mitral valve stenosis. There is a trace to mild amount of mitral regurgitation. Aortic Valve There is no aortic valvular vegetation. There is no aortic valve stenosis. There is no LVOT obstruction. No aortic regurgitation is present. Tricuspid Valve There is no tricuspid stenosis. There is a trace to mild amount of tricuspid regurgitation. There is mild pulmonary hypertension by echo. RVSPis 34 mm of Hg , with RA mean of 10. Pulmonic Valve There is no pulmonic valvular stenosis. There is a mild amount of pulmonic regurgitation. Great Vessels The aortic root is normal size. Effusions There is no pericardial effusion. : CANDIDO SERRATO > Latasha, Claire
[2018-03-21] MEDS: INSULIN REG, HUMAN 100 UNIT/ML 3 ML VIAL (PYX) SUBCUT SCH ×4 (00:24→17:05)
[2018-03-21] MEDS: MORPHINE SULFATE 10 MG/ML INJ IV PRN ×4 (01:09→19:45)
[2018-03-21] MEDS: MEROPENEM 1 GM in NORMAL SALINE 50 ML IV SCH ×3 (02:11→17:07)
[2018-03-21] MEDS: DEXTROSE 5%-WATER 250 ML with PHENYLEPHRINE HCL 40 MG IV PRN ×2 (02:11)
[2018-03-21] MEDS: VANCOMYCIN HCL 1,250 MG in DEXTROSE 5%-WATER 250 ML IV SCH ×3 (02:12→17:07)
[2018-03-21] MEDS: POTASSI CL 20 MEQ/1/2NS 1L 20 MEQ/1,000 ML RTUINJ IV PRN ×2 (02:15→17:12)
[2018-03-21] MEDS: LEVALBUTEROL HCL NEB 0.63 MG/3 ML AMPUL NEB SCH ×4 (02:42→20:55)
[2018-03-21] MEDS: ACETAMINOPHEN 1,000 MG/100 ML RTUPB IV PRN ×3 (04:51→22:33)
[2018-03-21 05:08] LABS: ARTERIAL BLOOD BASE EXCESS 3.5 mmol/L; ARTERIAL BLOOD H2CO3 1.01 mmol/L (1.05-1.35); ARTERIAL BLOOD HCO3 26.4 mmol/L (20-24); ARTERIAL BLOOD O2 SATURATION 92.5 % (94-98); ARTERIAL BLOOD PCO2 33.5 mmHg (35-45); ARTERIAL BLOOD PH 7.51 (7.35-7.45); ARTERIAL BLOOD PO2 57.2 mmHg (80-100); ARTERIAL BLOOD TOTAL CO2 27.4 mmol/L (21-25)
[2018-03-21 05:09] LABS: ARTERIAL BLOOD FIO2 45%
[2018-03-21 05:29] LABS: ALANINE AMINOTRANSFERASE 18 U/L (9-52); ALBUMIN 1.4 g/dL (3.5-5.0); ALKALINE PHOSPHATASE 59 U/L (38-126); ANION GAP 6 (5-19); ASPARTATE AMINO TRANSFERASE 10 U/L (14-36); BILIRUBIN,DIRECT 0.2 mg/dL (0.0-0.4); BILIRUBIN,TOTAL 0.3 mg/dL (0.2-1.3); BLOOD UREA NITROGEN 10 mg/dL (7-20); CARBON DIOXIDE 25 mmol/L (22-30); CHLORIDE 104 mmol/L (98-107); GLUCOSE 129 mg/dL (75-110); PHOSPHORUS 2.3 mg/dL (2.5-4.5); SODIUM 134.8 mmol/L (137-145)
[2018-03-21] MEDS: HEPARIN SOD (PORCINE) 5,000 UNIT/ML 1 ML SYRINGE SUBCUT SCH ×3 (05:30→22:34)
[2018-03-21 05:36] LABS: PREALBUMIN 3.1 mg/dL (17.6-36.0)
[2018-03-21 05:45] LABS: CALCIUM 6.7 mg/dL (8.4-10.2)
[2018-03-21] MEDS: POTASSIUM CHLORIDE 20 MEQ/50 ML RTU IV SCH ×3 (06:24→09:22)
[2018-03-21] MEDS: TIOTROPIUM BROMIDE DPI 5 CAP/KIT (18 MCG/CAP) IH SCH (06:26)
--- NOTE | 2018-03-21 07:14 | RADIOLOGY REPORT (SQ) ---
EXAM DESCRIPTION: XR CHEST 1 VIEW COMPLETED DATE/TME: 03/21/2018 06:00 CLINICAL HISTORY: 63 years Female, Resp. Failure. Pleural Effusion COMPARISON: 3 days prior. NUMBER OF VIEWS/TECHNIQUE: 1/AP FINDINGS: Moderate mixed airspace and interstitial opacities. Bilateral lower thoracic opacity/effusion. Adequate appearing endotracheal tube. Likely adequate appearing enteric tube partially obscured. Right jugular central line tip at the inferior right atrium; consider 8 cm retraction of the right jugular central line. Right paracentral abdominal catheter partially imaged. Skin clips partially imaged at the left paracentral mid abdomen. Normal cardiac silhouette size. No pneumothorax. Stable bony thorax. IMPRESSION: No significant change.
[2018-03-21 07:55] LABS: ABSOLUTE BASOPHILS # (AUTO) 0.1 10^3/uL (0.0-0.2); ABSOLUTE EOSINOPHILS # (AUTO) 0.2 10^3/uL (0.0-0.6); ABSOLUTE LYMPHOCYTES (AUTO) 1.2 10^3/uL (0.5-4.7); ABSOLUTE MONOCYTES (AUTO) 0.3 10^3/uL (0.1-1.4); BASOPHILS % (AUTO) 0.5 % (0-2); EOSINOPHILS % (AUTO) 1.6 % (0-6); HEMATOCRIT 25.9 % (36.0-47.0); HEMOGLOBIN 8.6 g/dL (12.0-15.5); LYMPHOCYTES % (AUTO) 8.9 % (13-45); MEAN CORPUSCULAR HGB CONC 33.3 g/dL (32.0-36.0); MEAN CORPUSCULAR VOLUME 84 fl (80-97); PLATELET COUNT 355 10^3/uL (150-450); RED BLOOD COUNT 3.08 10^6/uL (3.72-5.28); RED CELL DISTRIBUTION WIDTH 14.9 % (11.5-14.0); TOTAL CELLS COUNTED % (AUTO) 100 %; WHITE BLOOD COUNT 13.8 10^3/uL (4.0-10.5)
--- NOTE | 2018-03-21 08:17 | PDOC PROGRESS REPORT ---
Subjective Progress Note for:: 03/21/18 Reason For Visit: GALLBLADDER CANCER Physical Exam Vital Signs: Temp Pulse Resp BP Pulse Ox 100.4 F 85 21 H 109/60 93 03/21/18 06:30 03/21/18 02:40 03/21/18 06:30 03/21/18 06:30 03/21/18 06:30 Intake & Output 03/20/18 03/21/18 03/22/18 06:59 06:59 06:59 Intake Total 2081 3650 339 Output Total 1645 2647 Balance 436 1003 339 Weight 97.6 kg 97.6 kg General appearance: PRESENT: no acute distress, other - responds with opening eyes to verbal stimuli Respiratory exam: PRESENT: clear to auscultation christian - on ventilator, unlabored Cardiovascular exam: PRESENT: RRR Pulses: PRESENT: normal radial pulses, normal femoral pulses GI/Abdominal exam: PRESENT: soft - debby with min op ct perc drain approx 500 cc yesterday Extremities exam: PRESENT: +2 edema Results Laboratory Results: 03/21/18 07:38 03/21/18 05:00 03/20/18 03/20/18 03/20/18 05:30 09:50 12:05 WBC RBC Hgb Hct MCV MCH MCHC RDW Plt Count Seg Neutrophils % Lymphocytes % Monocytes % Eosinophils % Basophils % Absolute Neutrophils Absolute Lymphocytes Absolute Monocytes Absolute Eosinophils Absolute Basophils Carbonic Acid HCO3/H2CO3 Ratio ABG pH ABG pCO2 ABG pO2 ABG HCO3 ABG O2 Saturation ABG Base Excess FiO2 Sodium Potassium Chloride Carbon Dioxide Anion Gap BUN Creatinine Est GFR ( Amer) Est GFR (Non-Af Amer) Glucose Lactic Acid 0.7 Calcium Phosphorus Magnesium Total Bilirubin AST ALT Alkaline Phosphatase Total Protein Albumin Prealbumin 3.4 L Triglycerides 90 Fluid Type PERITONEAL Fluid Source ASCITES Fluid Color GREEN Fluid Appearance TURBID Fluid Viscosity LIQUID Fluid WBC 0 Fluid RBC 0 03/20/18 03/20/18 03/21/18 16:55 16:55 05:00 WBC RBC Hgb Hct MCV MCH MCHC RDW Plt Count Seg Neutrophils % Lymphocytes % Monocytes % Eosinophils % Basophils % Absolute Neutrophils Absolute Lymphocytes Absolute Monocytes Absolute Eosinophils Absolute Basophils Carbonic Acid 1.01 L HCO3/H2CO3 Ratio 26:1 ABG pH 7.51 H ABG pCO2 33.5 L ABG pO2 57.2 L ABG HCO3 26.4 H ABG O2 Saturation 92.5 L ABG Base Excess 3.5 FiO2 45% Sodium 134.8 L Potassium 3.4 L Chloride 103 Carbon Dioxide 26 Anion Gap 6 BUN 11 Creatinine 0.53 Est GFR ( Amer) > 60 Est GFR (Non-Af Amer) > 60 Glucose 85 Lactic Acid Calcium 7.4 L Phosphorus Magnesium 2.0 Total Bilirubin AST ALT Alkaline Phosphatase Total Protein Albumin Prealbumin Triglycerides Fluid Type Fluid Source Fluid Color Fluid Appearance Fluid Viscosity Fluid WBC Fluid RBC 03/21/18 03/21/18 05:00 07:38 WBC 13.8 H RBC 3.08 L Hgb 8.6 L Hct 25.9 L MCV 84 MCH 28.0 MCHC 33.3 RDW 14.9 H Plt Count 355 Seg Neutrophils % 87.0 H Lymphocytes % 8.9 L Monocytes % 2.0 L Eosinophils % 1.6 Basophils % 0.5 Absolute Neutrophils 12.0 H Absolute Lymphocytes 1.2 Absolute Monocytes 0.3 Absolute Eosinophils 0.2 Absolute Basophils 0.1 Carbonic Acid HCO3/H2CO3 Ratio ABG pH ABG pCO2 ABG pO2 ABG HCO3 ABG O2 Saturation ABG Base Excess FiO2 Sodium 134.8 L Potassium 3.0 L* Chloride 104 Carbon Dioxide 25 Anion Gap 6 BUN 10 Creatinine 0.51 L Est GFR ( Amer) > 60 Est GFR (Non-Af Amer) > 60 Glucose 129 H Lactic Acid Calcium 6.7 L* Phosphorus 2.3 L Magnesium Total Bilirubin 0.3 AST 10 L ALT 18 Alkaline Phosphatase 59 Total Protein 3.0 L Albumin 1.4 L Prealbumin 3.1 L Triglycerides Fluid Type Fluid Source Fluid Color Fluid Appearance Fluid Viscosity Fluid WBC Fluid RBC 03/16/18 03/18/18 03/18/18 05:06 04:45 19:10 CK-MB (CK-2) 1.10 Troponin I < 0.012 < 0.012 NT-Pro-B Natriuret Pep 513 03/18/18 03/20/18 19:50 12:05 CK-MB (CK-2) Troponin I NT-Pro-B Natriuret Pep 272 669 Impressions: KUB X-Ray 03/11/18 00:00 IMPRESSION: There are mildly dilated small bowel loops throughout the left abdomen, developing ileus or obstruction possible. Hepatobiliary Scan Nuclear Medicine 03/12/18 00:00 IMPRESSION: Bile leak in the gallbladder fossa. Catheter Placement 03/14/18 00:00 IMPRESSION: IMAGE(S) OBTAINED DURING PROCEDURE. Fluoroscopy 03/14/18 00:00 IMPRESSION: IMAGE(S) OBTAINED DURING PROCEDURE. Abdomen/Pelvis CT 03/15/18 00:00 IMPRESSION: Post surgical changes, as above with a small amount of free intraperitoneal air in the upper abdomen and right upper quadrant. There is also a small amount of free fluid in this region as well as pneumobilia. Biliary stent in place. A drainage catheter projects over the right mid abdomen. Correlate with surgical history. Small right pleural effusion with adjacent consolidative change. Nonobstructing right renal calculi. Diffuse anasarca. Fatty infiltrative change to the liver. TECHNICAL DOCUMENTATION: Quality ID # [id number]: Final reports with documentation of one or more dose reduction techniques (e.g., Automated exposure control, adjustment of the mA and/or kV according to patient size, use of iterative reconstruction technique) copyright 2011 [employer]- All Rights Reserved Chest/Abdomen CTA 03/18/18 00:00 IMPRESSION: 1 . Status post cholecystectomy with pneumobilia. Upper abdominal ascites and pneumoperitoneum consistent with postsurgical change. 2. Bibasilar atelectasis with pleural effusions. Acute Abdomen Series 03/20/18 00:00 IMPRESSION: Postop ileus. Retroperitoneal Abscess Drainage 03/20/18 00:00 IMPRESSION: Successful CT-guided placement of drainage catheter. Chest X-Ray 03/21/18 06:00 IMPRESSION: No significant change. Status: Image reviewed by me Assessment & Plan - Plan Summary Plan Summary: pt appears improving wbc 13.8 h/h stable will repeat ct today to eval fluid collection cont iv abx ween off pressors consider lasix po2 on 45% 57
--- NOTE | 2018-03-21 08:28 | PDOC PROGRESS REPORT ---
Subjective Progress Note for:: 03/21/18 Subjective:: Pt seems better today, pressor needs lower Reason For Visit: GALLBLADDER CANCER Physical Exam Vital Signs: Temp Pulse Resp BP Pulse Ox 99.0 F 88 30 H 115/98 H 92 03/21/18 08:00 03/21/18 08:00 03/21/18 08:00 03/21/18 08:00 03/21/18 08:00 Intake & Output 03/20/18 03/21/18 03/22/18 06:59 06:59 06:59 Intake Total 2081 3650 382 Output Total 1645 2647 500 Balance 436 1003 -118 Weight 97.6 kg 97.6 kg General appearance: PRESENT: no acute distress Head exam: PRESENT: atraumatic Mouth exam: PRESENT: dry mucosa Respiratory exam: PRESENT: clear to auscultation christian. ABSENT: rales, rhonchi, wheezes Cardiovascular exam: PRESENT: RRR. ABSENT: diastolic murmur, rubs, systolic murmur GI/Abdominal exam: PRESENT: normal bowel sounds, soft. ABSENT: distended, guarding, mass, organolmegaly, rebound, tenderness Rectal exam: PRESENT: deferred Neurological exam: PRESENT: other - intubated, sedated Results Laboratory Results: 03/21/18 07:38 03/21/18 05:00 03/20/18 03/20/18 03/20/18 09:50 12:05 16:55 WBC RBC Hgb Hct MCV MCH MCHC RDW Plt Count Seg Neutrophils % Lymphocytes % Monocytes % Eosinophils % Basophils % Absolute Neutrophils Absolute Lymphocytes Absolute Monocytes Absolute Eosinophils Absolute Basophils Carbonic Acid HCO3/H2CO3 Ratio ABG pH ABG pCO2 ABG pO2 ABG HCO3 ABG O2 Saturation ABG Base Excess FiO2 Sodium 134.8 L Potassium 3.4 L Chloride 103 Carbon Dioxide 26 Anion Gap 6 BUN 11 Creatinine 0.53 Est GFR ( Amer) > 60 Est GFR (Non-Af Amer) > 60 Glucose 85 Lactic Acid 0.7 Calcium 7.4 L Phosphorus Magnesium Total Bilirubin AST ALT Alkaline Phosphatase Total Protein Albumin Prealbumin Fluid Type PERITONEAL Fluid Source ASCITES Fluid Color GREEN Fluid Appearance TURBID Fluid Viscosity LIQUID Fluid WBC 0 Fluid RBC 0 03/20/18 03/21/18 03/21/18 16:55 05:00 05:00 WBC RBC Hgb Hct MCV MCH MCHC RDW Plt Count Seg Neutrophils % Lymphocytes % Monocytes % Eosinophils % Basophils % Absolute Neutrophils Absolute Lymphocytes Absolute Monocytes Absolute Eosinophils Absolute Basophils Carbonic Acid 1.01 L HCO3/H2CO3 Ratio 26:1 ABG pH 7.51 H ABG pCO2 33.5 L ABG pO2 57.2 L ABG HCO3 26.4 H ABG O2 Saturation 92.5 L ABG Base Excess 3.5 FiO2 45% Sodium 134.8 L Potassium 3.0 L* Chloride 104 Carbon Dioxide 25 Anion Gap 6 BUN 10 Creatinine 0.51 L Est GFR ( Amer) > 60 Est GFR (Non-Af Amer) > 60 Glucose 129 H Lactic Acid Calcium 6.7 L* Phosphorus 2.3 L Magnesium 2.0 Total Bilirubin 0.3 AST 10 L ALT 18 Alkaline Phosphatase 59 Total Protein 3.0 L Albumin 1.4 L Prealbumin 3.1 L Fluid Type Fluid Source Fluid Color Fluid Appearance Fluid Viscosity Fluid WBC Fluid RBC 03/21/18 07:38 WBC 13.8 H RBC 3.08 L Hgb 8.6 L Hct 25.9 L MCV 84 MCH 28.0 MCHC 33.3 RDW 14.9 H Plt Count 355 Seg Neutrophils % 87.0 H Lymphocytes % 8.9 L Monocytes % 2.0 L Eosinophils % 1.6 Basophils % 0.5 Absolute Neutrophils 12.0 H Absolute Lymphocytes 1.2 Absolute Monocytes 0.3 Absolute Eosinophils 0.2 Absolute Basophils 0.1 Carbonic Acid HCO3/H2CO3 Ratio ABG pH ABG pCO2 ABG pO2 ABG HCO3 ABG O2 Saturation ABG Base Excess FiO2 Sodium Potassium Chloride Carbon Dioxide Anion Gap BUN Creatinine Est GFR ( Amer) Est GFR (Non-Af Amer) Glucose Lactic Acid Calcium Phosphorus Magnesium Total Bilirubin AST ALT Alkaline Phosphatase Total Protein Albumin Prealbumin Fluid Type Fluid Source Fluid Color Fluid Appearance Fluid Viscosity Fluid WBC Fluid RBC 03/16/18 03/18/18 03/18/18 05:06 04:45 19:10 CK-MB (CK-2) 1.10 Troponin I < 0.012 < 0.012 NT-Pro-B Natriuret Pep 513 03/18/18 03/20/18 19:50 12:05 CK-MB (CK-2) Troponin I NT-Pro-B Natriuret Pep 272 399 Impressions: KUB X-Ray 03/11/18 00:00 IMPRESSION: There are mildly dilated small bowel loops throughout the left abdomen, developing ileus or obstruction possible. Hepatobiliary Scan Nuclear Medicine 03/12/18 00:00 IMPRESSION: Bile leak in the gallbladder fossa. Catheter Placement 03/14/18 00:00 IMPRESSION: IMAGE(S) OBTAINED DURING PROCEDURE. Fluoroscopy 03/14/18 00:00 IMPRESSION: IMAGE(S) OBTAINED DURING PROCEDURE. Abdomen/Pelvis CT 03/15/18 00:00 IMPRESSION: Post surgical changes, as above with a small amount of free intraperitoneal air in the upper abdomen and right upper quadrant. There is also a small amount of free fluid in this region as well as pneumobilia. Biliary stent in place. A drainage catheter projects over the right mid abdomen. Correlate with surgical history. Small right pleural effusion with adjacent consolidative change. Nonobstructing right renal calculi. Diffuse anasarca. Fatty infiltrative change to the liver. TECHNICAL DOCUMENTATION: Quality ID # 436: Final reports with documentation of one or more dose reduction techniques (e.g., Automated exposure control, adjustment of the mA and/or kV according to patient size, use of iterative reconstruction technique) copyright 2011 [employer]- All Rights Reserved Chest/Abdomen CTA 03/18/18 00:00 IMPRESSION: 1 . Status post cholecystectomy with pneumobilia. Upper abdominal ascites and pneumoperitoneum consistent with postsurgical change. 2. Bibasilar atelectasis with pleural effusions. Acute Abdomen Series 03/20/18 00:00 IMPRESSION: Postop ileus. Retroperitoneal Abscess Drainage 03/20/18 00:00 IMPRESSION: Successful CT-guided placement of drainage catheter. Chest X-Ray 03/21/18 06:00 IMPRESSION: No significant change. Assessment & Plan - Diagnosis (1) Gallbladder cancer Is this a current diagnosis for this admission?: Yes Plan: seems improved, will have discussion w/ family today - Time Time Spent with patient: 35 or more minutes
[2018-03-21] MEDS: FAMOTIDINE INJ/PF 20 MG/2 ML SDV IV SCH ×2 (09:21→22:34)
[2018-03-21] MEDS: SALMETEROL XINAFOATE DISKUS 50 MCG/1 DOSE 28 DOSE IH SCH ×2 (09:22→22:34)
--- NOTE | 2018-03-21 10:17 | RADIOLOGY REPORT (SQ) ---
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 Images reviewed with lung, soft tissue and bone windows. Reconstructed coronal and sagittal MPR images reviewed. All images stored on PACS. All CT scanners at this facility use dose modulation, iterative reconstruction, and/or weight based d osing when appropriate to reduce radiation dose to as low as reasonably achievable (ALARA). [facility]: Dose Right [facility]: CareDose [facility]: Dose Right [facility]: [employer] 4D [facility]: Smart [employer] RADIATION DOSE: CT Rad equipment meets quality standard of care and radiation dose reduction techniq ues were employed. CTDIvol: 17.7 - 28.3 mGy. DLP: 2150 mGy-cm. mGy. LIMITATIONS: None. FINDINGS: AXILLAE: No adenopathy. CHEST WALL: No masses. No subcutaneous air. LUNGS: Interval endotracheal intubation. Atelectasis or consolidation associated with bilateral pleu ral effusions. PLEURA: Worsened moderate right, small left pleural effusions and associated bibasilar atelectasis or consolidation. THYROID: No masses or significant asymmetry. HILAR AND MEDIASTINAL STRUCTURES: No identified masses or abnormal nodes. AORTA AND GREAT VESSELS: No aneurysm. HEART: No pericardial effusion. HARDWARE AND LIFELINES: None. BONES: No significant finding. OTHER: No other significant finding. IMPRESSION: Interval endotracheal intubation. Interval worsening of now moderate right, small left pleural effusions and associated atelectasis or consolidation. COMPARISON: 03/15/2018 TECHNIQUE: CT scan of the abdomen and pelvis performed without intravenous contrast and withoutoral contrast using helical scanning technique with dynamic intravenous contrast injection. Images review ed with lung, soft tissue and bone windows. Reconstructed coronal and sagittal MPR images reviewed. All images stored on PACS. All CT scanners at this facility use dose modulation, iterative reconstruction, and/or weight based d osing when appropriate to reduce radiation dose to as low as reasonably achievable (ALARA). [facility]: Dose Right [facility]: [employer]Care [facility]: Dose Right [facility]: [employer] 4D [facility]: [employer] RADIATION DOSE: CT Rad equipment meets quality standard of care and radiation dose reduction techniq ues were employed. CTDIvol: 17.7 - 28.3 mGy. DLP: 2150 mGy-cm.mGy. LIMITATIONS: None. FINDINGS: LIVER: Normal size. No masses. No dilated ducts. SPLEEN: Normal size. No focal lesions. PANCREAS: No masses. No significant calcifications. No adjacent inflammation or peripancreatic flui d collections. Pancreatic duct not dilated. GALLBLADDER: Status post cholecystectomy. There has been interval placement of a percutaneous pigtai l drainage catheter in a fluid collection about the gallbladder fossa and anterior right lobe of the liver, with near total resolution. Additional surgical drain is present in the gallbladder fossa. ADRENAL GLANDS: No significant masses or asymmetry. RIGHT KIDNEY AND URETER: No solid masses. Assessment limited by lack of IV contrast. Nonobstructive superior pole calculus. No hydronephrosis or hydroureter. LEFT KIDNEY AND URETER: No solid masses. Assessment limited by lack of IV contrast. No significant ca lcification. No hydronephrosis or hydroureter. AORTA AND VESSELS: No aneurysm. RETROPERITONEUM: No retroperitoneal adenopathy, hemorrhage or masses. APPENDIX: Normal. LARGE AND SMALL BOWEL: Esophagogastric tube present in the stomach. No dilatation. No masses. No w all thickening. ABDOMINAL WALL: No hernia or masses. Anasarca. PERITONEAL CAVITY: Interval increase in low attenuation ascites elsewhere about the abdomen. PELVIS: No mass or free fluid. Santos catheter in the bladder. BONES: No significant or acute findings. OTHER: No other significant finding. IMPRESSION: 1. Postoperative findings of cholecystectomy with interval placement of a pigtail surgi abelino drain within a fluid collection about the gallbladder fossa and anterior to the liver. There is near total interval resolution of this fluid collection. An additional surgical drain remains in the gallbladder fossa. 2. There is an interval increase in ascites elsewhere about the abdomen. 3. Anasarca. TECHNICAL DOCUMENTATION: JOB ID: [id number] Quality ID # [id number]: Final reports with documentation of one or more dose reduction techniques (e.g., Au tomated exposure control, adjustment of the mA and/or kV according to patient size, use of iterative reconstruction technique) 2010 [employer]- All Rights Reserved Reading location - IP/workstation name: [email or web address]
--- NOTE | 2018-03-21 10:17 | RADIOLOGY REPORT (SQ) ---
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 Images reviewed with lung, soft tissue and bone windows. Reconstructed coronal and sagittal MPR images reviewed. All images stored on PACS. All CT scanners at this facility use dose modulation, iterative reconstruction, and/or weight based d osing when appropriate to reduce radiation dose to as low as reasonably achievable (ALARA). [facility]: Dose Right [facility]: CareDose [facility]: Dose Right [facility]: [employer] 4D [facility]: Smart [employer] RADIATION DOSE: CT Rad equipment meets quality standard of care and radiation dose reduction techniq ues were employed. CTDIvol: 17.7 - 28.3 mGy. DLP: 2150 mGy-cm. mGy. LIMITATIONS: None. FINDINGS: AXILLAE: No adenopathy. CHEST WALL: No masses. No subcutaneous air. LUNGS: Interval endotracheal intubation. Atelectasis or consolidation associated with bilateral pleu ral effusions. PLEURA: Worsened moderate right, small left pleural effusions and associated bibasilar atelectasis or consolidation. THYROID: No masses or significant asymmetry. HILAR AND MEDIASTINAL STRUCTURES: No identified masses or abnormal nodes. AORTA AND GREAT VESSELS: No aneurysm. HEART: No pericardial effusion. HARDWARE AND LIFELINES: None. BONES: No significant finding. OTHER: No other significant finding. IMPRESSION: Interval endotracheal intubation. Interval worsening of now moderate right, small left pleural effusions and associated atelectasis or consolidation. COMPARISON: 03/15/2018 TECHNIQUE: CT scan of the abdomen and pelvis performed without intravenous contrast and withoutoral contrast using helical scanning technique with dynamic intravenous contrast injection. Images review ed with lung, soft tissue and bone windows. Reconstructed coronal and sagittal MPR images reviewed. All images stored on PACS. All CT scanners at this facility use dose modulation, iterative reconstruction, and/or weight based d osing when appropriate to reduce radiation dose to as low as reasonably achievable (ALARA). [facility]: Dose Right [facility]: SureCare [facility]: Dose Right [facility]: [employer] 4D [facility]: [employer] RADIATION DOSE: CT Rad equipment meets quality standard of care and radiation dose reduction techniq ues were employed. CTDIvol: 17.7 - 28.3 mGy. DLP: 2150 mGy-cm.mGy. LIMITATIONS: None. FINDINGS: LIVER: Normal size. No masses. No dilated ducts. SPLEEN: Normal size. No focal lesions. PANCREAS: No masses. No significant calcifications. No adjacent inflammation or peripancreatic flui d collections. Pancreatic duct not dilated. GALLBLADDER: Status post cholecystectomy. There has been interval placement of a percutaneous pigtai l drainage catheter in a fluid collection about the gallbladder fossa and anterior right lobe of the liver, with near total resolution. Additional surgical drain is present in the gallbladder fossa. ADRENAL GLANDS: No significant masses or asymmetry. RIGHT KIDNEY AND URETER: No solid masses. Assessment limited by lack of IV contrast. Nonobstructive superior pole calculus. No hydronephrosis or hydroureter. LEFT KIDNEY AND URETER: No solid masses. Assessment limited by lack of IV contrast. No significant ca lcification. No hydronephrosis or hydroureter. AORTA AND VESSELS: No aneurysm. RETROPERITONEUM: No retroperitoneal adenopathy, hemorrhage or masses. APPENDIX: Normal. LARGE AND SMALL BOWEL: Esophagogastric tube present in the stomach. No dilatation. No masses. No w all thickening. ABDOMINAL WALL: No hernia or masses. Anasarca. PERITONEAL CAVITY: Interval increase in low attenuation ascites elsewhere about the abdomen. PELVIS: No mass or free fluid. Santos catheter in the bladder. BONES: No significant or acute findings. OTHER: No other significant finding. IMPRESSION: 1. Postoperative findings of cholecystectomy with interval placement of a pigtail surgi abelino drain within a fluid collection about the gallbladder fossa and anterior to the liver. There is near total interval resolution of this fluid collection. An additional surgical drain remains in the gallbladder fossa. 2. There is an interval increase in ascites elsewhere about the abdomen. 3. Anasarca. TECHNICAL DOCUMENTATION: JOB ID: [id number] Quality ID # [id number]: Final reports with documentation of one or more dose reduction techniques (e.g., Au tomated exposure control, adjustment of the mA and/or kV according to patient size, use of iterative reconstruction technique) 2010 [employer]- All Rights Reserved Reading location - IP/workstation name: [email or web address]
[2018-03-21] MEDS ORDERED: POTASSIUM PHOS,M-BASIC-D-BASIC 15 MMOL in NORMAL SALINE 250 ML IV ONE (11:00)
[2018-03-21 12:59] LABS: BLOOD UREA NITROGEN 10 mg/dL (7-20); GLUCOSE 122 mg/dL (75-110)
[2018-03-21 13:05] LABS: CARBON DIOXIDE 26 mmol/L (22-30); CHLORIDE 105 mmol/L (98-107)
[2018-03-21 13:11] LABS: ANION GAP 4 (5-19)
[2018-03-21] MEDS ORDERED: FUROSEMIDE INJ/PF 20 MG/2 ML SDV IV ONE (13:57)
[2018-03-21] MEDS: FLUCONAZOLE 200 MG/NS RTU 200 MG/100 ML RTUPB IV SCH (14:23)
--- NOTE | 2018-03-21 17:53 | PDOC PROGRESS REPORT ---
Subjective Progress Note for:: 03/21/18 Subjective:: 63 y.o. F with HTN, asthma and COPD admitted to [facility] 03/01/2018 for ch olecystectomy to remove cancerous gallbladder. Within days of surgery there was a large amount of output noted in her JASKARAN drain. The patient underwent an ERCP on 03/14/2018 with CBD stent placement. Within 24hrs she began developing signs of sepsis and the hospitalist service was consulted for medical management. Follow up CT Abd/Pelvis showed small amount of free air in RUQ and pneumobilia, small a mount of free fluid surrounding the liver and in RUQ, and a small R pleural effusion. The patient was seen on morning rounds. She is off sedation, with improvd alertness today. Can now open eyes briefly on command and answeres most yes or no questions. She has been weaned off of Robert-Synephrine and is maintaining adequate, but soft, blood pressures (110/60). Currently on IV vancomycin and meropenem for sepsis secondary to bile leak following radical cholecystectomy and partial hepatectomy for metastatic gallbladder cancer. Percutaneous drain placed by interventional radiology yesterday; ~500 mL foul smelling, thick, greenish fluid output. Cultures growing Gm (-) rods, Gm (+) cocci, and yeast. Santos catheter is in place; improved urinary output today. Patient w/ third spacing; recieved IV albumin and Hespan yesterday, will continue TPN tonight. Met with patient's this afternoon; all questions/concerns addressed. Nursing reports slight increase in temp (101.6) and RR (low 30s) today, otherwise no new concerns. Reason For Visit: GALLBLADDER CANCER Physical Exam Vital Signs: Temp Pulse Resp BP Pulse Ox 100.2 F 89 22 H 93/52 L 94 03/21/18 16:00 03/21/18 16:00 03/21/18 16:00 03/21/18 16:00 03/21/18 16:30 Intake & Output 03/20/18 03/21/18 03/22/18 06:59 06:59 06:59 Intake Total 2081 3650 2817 Output Total 1645 2647 1200 Balance 436 1003 1617 Weight 97.6 kg 97.6 kg General appearance: PRESENT: obese, well-developed, well-nourished, other - acutely ill appearing Head exam: PRESENT: atraumatic, normocephalic Eye exam: PRESENT: conjunctiva pink, PERRLA. ABSENT: scleral icterus Ear exam: PRESENT: normal external ear exam Mouth exam: PRESENT: moist, tongue midline, other - ET/OG tube Neck exam: ABSENT: carotid bruit, JVD, lymphadenopathy, thyromegaly Respiratory exam: PRESENT: clear to auscultation christian, decreased breath sounds - bibasilar, prolonged expiratory phas, symmetrical, tachypnea, other - Mechanically ventilated. ABSENT: rales, rhonchi, wheezes Cardiovascular exam: PRESENT: RRR. ABSENT: diastolic murmur, rubs, systolic murmur Pulses: PRESENT: normal dorsalis pedis pul Vascular exam: PRESENT: normal capillary refill GI/Abdominal exam: PRESENT: normal bowel sounds, soft. ABSENT: distended, guarding, mass, organolmegaly, rebound, tenderness Rectal exam: PRESENT: deferred Gentrourinary exam: PRESENT: indwelling catheter Extremities exam: PRESENT: full ROM, +1 edema - BUE, +2 edema - BLE. ABSENT: calf tenderness, clubbing, pedal edema Neurological exam: PRESENT: CN II-XII grossly intact, other - Arousable; sedation continues to be held. Attempts to follow commands and answers yes or no questions today.. ABSENT: motor sensory deficit Psychiatric exam: PRESENT: appropriate affect, normal mood. ABSENT: homicidal ideation, suicidal ideation Skin exam: PRESENT: dry, warm, other - Surgical incision/drains to abdomen. ABSENT: cyanosis, rash Results Laboratory Results: 03/21/18 07:38 03/21/18 12:15 03/20/18 03/21/18 03/21/18 16:55 05:00 05:00 WBC RBC Hgb Hct MCV MCH MCHC RDW Plt Count Seg Neutrophils % Lymphocytes % Monocytes % Eosinophils % Basophils % Absolute Neutrophils Absolute Lymphocytes Absolute Monocytes Absolute Eosinophils Absolute Basophils Carbonic Acid 1.01 L HCO3/H2CO3 Ratio 26:1 ABG pH 7.51 H ABG pCO2 33.5 L ABG pO2 57.2 L ABG HCO3 26.4 H ABG O2 Saturation 92.5 L ABG Base Excess 3.5 FiO2 45% Sodium 134.8 L Potassium 3.0 L* Chloride 104 Carbon Dioxide 25 Anion Gap 6 BUN 10 Creatinine 0.51 L Est GFR ( Amer) > 60 Est GFR (Non-Af Amer) > 60 Glucose 129 H Calcium 6.7 L* Phosphorus 2.3 L Magnesium 2.0 Total Bilirubin 0.3 AST 10 L ALT 18 Alkaline Phosphatase 59 Total Protein 3.0 L Albumin 1.4 L Prealbumin 3.1 L Blood Type Antibody Screen 03/21/18 03/21/18 03/21/18 07:38 12:10 12:15 WBC 13.8 H RBC 3.08 L Hgb 8.6 L Hct 25.9 L MCV 84 MCH 28.0 MCHC 33.3 RDW 14.9 H Plt Count 355 Seg Neutrophils % 87.0 H Lymphocytes % 8.9 L Monocytes % 2.0 L Eosinophils % 1.6 Basophils % 0.5 Absolute Neutrophils 12.0 H Absolute Lymphocytes 1.2 Absolute Monocytes 0.3 Absolute Eosinophils 0.2 Absolute Basophils 0.1 Carbonic Acid HCO3/H2CO3 Ratio ABG pH ABG pCO2 ABG pO2 ABG HCO3 ABG O2 Saturation ABG Base Excess FiO2 Sodium 135.0 L Potassium 4.0 D Chloride 105 Carbon Dioxide 26 Anion Gap 4 L BUN 10 Creatinine 0.46 L Est GFR ( Amer) > 60 Est GFR (Non-Af Amer) > 60 Glucose 122 H Calcium 7.0 L* Phosphorus Magnesium Total Bilirubin AST ALT Alkaline Phosphatase Total Protein Albumin Prealbumin Blood Type A POSITIVE Antibody Screen NEGATIVE 03/16/18 09:37 Blood Blood Culture - Final NO GROWTH IN 5 DAYS 03/16/18 09:13 Blood Blood Culture - Final NO GROWTH IN 5 DAYS 03/16/18 03/18/18 03/18/18 05:06 04:45 19:10 CK-MB (CK-2) 1.10 Troponin I < 0.012 < 0.012 NT-Pro-B Natriuret Pep 513 03/18/18 03/20/18 19:50 12:05 CK-MB (CK-2) Troponin I NT-Pro-B Natriuret Pep 272 386 Impressions: KUB X-Ray 03/11/18 00:00 IMPRESSION: There are mildly dilated small bowel loops throughout the left abdomen, developing ileus or obstruction possible. Hepatobiliary Scan Nuclear Medicine 03/12/18 00:00 IMPRESSION: Bile leak in the gallbladder fossa. Catheter Placement 03/14/18 00:00 IMPRESSION: IMAGE(S) OBTAINED DURING PROCEDURE. Fluoroscopy 03/14/18 00:00 IMPRESSION: IMAGE(S) OBTAINED DURING PROCEDURE. Chest/Abdomen CTA 03/18/18 00:00 IMPRESSION: 1 . Status post cholecystectomy with pneumobilia. Upper abdominal ascites and pneumoperitoneum consistent with postsurgical change. 2. Bibasilar atelectasis with pleural effusions. Acute Abdomen Series 03/20/18 00:00 IMPRESSION: Postop ileus. Retroperitoneal Abscess Drainage 03/20/18 00:00 IMPRESSION: Successful CT-guided placement of drainage catheter. Abdomen/Pelvis CT 03/21/18 00:00 IMPRESSION: Interval endotracheal intubation. Interval worsening of now moderate right, small left pleural effusions and associated atelectasis or consolidation. IMPRESSION: 1. Postoperative findings of cholecystectomy with interval placement of a pigtail surgical drain within a fluid collection about the gallbladder fossa and anterior to the liver. There is near total interval resolution of this fluid collection. An additional surgical drain remains in the gallbladder fossa. 2. There is an interval increase in ascites elsewhere about the abdomen. 3. Anasarca. Chest CT 03/21/18 00:00 IMPRESSION: Interval endotracheal intubation. Interval worsening of now moderate right, small left pleural effusions and associated atelectasis or conso lidation. IMPRESSION: 1. Postoperative findings of cholecystectomy with interval placement of a pigtail surgical drain within a fluid collection about the gallbladder fossa and anterior to the liver. There is near total interval resolution of this fluid collection. An additional surgical drain remains in the gallbladder fossa. 2. There is an interval increase in ascites elsewhere about the abdomen. 3. Anasarca. Chest X-Ray 03/21/18 06:00 IMPRESSION: No significant change. Assessment & Plan - Diagnosis (1) Sepsis Is this a current diagnosis for this admission?: Yes Plan: Sepsis secondary to intra-abdominal infection; leukocytosis trending down, lactic acid nml, remains febrile (101.6) Evidence by tachycardia, leukocyosis, fever (EFDX653.2), tachypnea (RR 24-40) No evidence of PNA, blood cultures negative at 5 days Repeat blood cultures negative at 24 hours Urinalysis negative Lactate 1.3 -> 0.7 (today) Surgical incision is C/D/I Now s/p percutaneous drain placement. Peritoneal fluid C/S growing gram- positive cocci, gram-negative rods, yeast Continue Vancomycin and Meropenem. Have added IV Diflucan. Previously received Cipro pre-operatively before Ex Lap, postoperatively received Ancef and Flagyl 03/06-03/13 Infectious Disease is consulted; appreciate Dr. Vela's evaluation and recommendations. (2) Acute respiratory failure with hypoxia Is this a current diagnosis for this admission?: Yes Plan: Secondary to poor respiratory effort/splinting stemming from postoperative pain resulting in atelectasis and bilateral pleural effusions; complicated by sepsis. Now requiring mechanical ventilation. Bilateral pleural effusions on CTA; R>L. Continue to be present on CXR today CT chest demonstrates increase in pleural effusions, R>L with associated atelectasis ProBNP 659, echocardiogram is reassuring. LVEF 65%, normal diastolic function Continue supplemental oxygen, mechanical ventilation as needed to maintain oxygen saturations. Scheduled and as needed nebulizer treatments. Trial IV Lasix 20 mg x1. Pulmonology is consulted; appreciate Dr. Booth's assistance. Will discuss with Pulm/IR/Surgery tomorrow; consider diagnostic thoracentesis. Discussed with surgery; hold on thoracentesis, Dr. Michaud states will will discuss with pulmonology tomorrow if unresponsive to diuresis. 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 Tadeo's assistance. Surgery is primary; appreciate Dr. Michaud's expertise with surgical/oncological cases. (4) Hypotension Is this a current diagnosis for this admission?: Yes Plan: Improved; now off robert-Synephrine. Secondary to sepsis. Received albumin and Hespan last night. Continue gentle IVF and TPN for hypoalbuminemia. (5) Postoperative pain Is this a current diagnosis for this admission?: Yes Plan: Status post cholecystectomy and ERCP with JASKARAN and percutaneous drains in place. Postoperative pain may have contributed to her acute respiratory failure with hypoxia secondary to splinting. Continue providing analgesics as needed. Patient is currently sedated and mechanically ventilated. (6) Anxiety Is this a current diagnosis for this admission?: Yes Plan: Patient has a PMH of anxiety Family reports the patient has been significantly anxious while inpatient Was previously receiving 1 mg Ativan as needed, but nursing staff reported concerns that patient became very somnolent following administration. Ativan 1 mg via NG tube every 6 hours as needed. (7) Full code status Is this a current diagnosis for this admission?: Yes - Time Time Spent with patient: 35 or more minutes Medications reviewed and adjusted accordingly: Yes - Inpatient Certification Based on my medical assessment, after consideration of the patient's comorbidities, presenting symptoms, or acuity I expect that the services needed warrant INPATIENT care.: Yes I certify that my determination is in accordance with my understanding of Medicare's requirements for reasonable and necessary INPATIENT services [42 CFR 412.3e].: Yes Medical Necessity: Failure to Improve With Outpatient Therapy, Significant Comorbidiites Make Outpatient Treatment Too Risky, Need Close Monitoring Due to Risk of Patient Decompensation, Need For IV Fluids, Need For Continuous Telemetry Monitoring, Need for Nebulizer Therapy and Monitoring of Response, Need for Pain Control, Need for IV Antibiotics, Need for Surgery
[2018-03-21] MEDS: AMINO ACIDS 5%/D25W 1,000 ML IV PRN (18:11)
[2018-03-21] MEDS: KETOROLAC TROMETHAMINE INJ/PF 30 MG/1 ML SDV IV PRN (22:55)
[2018-03-22] MEDS: INSULIN REG, HUMAN 100 UNIT/ML 3 ML VIAL (PYX) SUBCUT SCH ×4 (00:39→17:31)
[2018-03-22] MEDS: MEROPENEM 1 GM in NORMAL SALINE 50 ML IV SCH ×3 (01:42→17:07)
[2018-03-22] MEDS: VANCOMYCIN HCL 1,250 MG in DEXTROSE 5%-WATER 250 ML IV SCH ×2 (01:42→13:32)
[2018-03-22] MEDS: LEVALBUTEROL HCL NEB 0.63 MG/3 ML AMPUL NEB SCH ×4 (02:18→20:37)
[2018-03-22] MEDS: MORPHINE SULFATE 10 MG/ML INJ IV PRN ×2 (02:27→08:38)
[2018-03-22 05:14] LABS: ARTERIAL BLOOD BASE EXCESS 3.8 mmol/L; ARTERIAL BLOOD FIO2 45%; ARTERIAL BLOOD H2CO3 1.07 mmol/L (1.05-1.35); ARTERIAL BLOOD HCO3 27.1 mmol/L (20-24); ARTERIAL BLOOD O2 SATURATION 92.5 % (94-98); ARTERIAL BLOOD PCO2 35.7 mmHg (35-45); ARTERIAL BLOOD PO2 58.1 mmHg (80-100); ARTERIAL BLOOD TOTAL CO2 28.2 mmol/L (21-25)
[2018-03-22 05:39] LABS: ALANINE AMINOTRANSFERASE 15 U/L (9-52); ALBUMIN 1.4 g/dL (3.5-5.0); ALKALINE PHOSPHATASE 60 U/L (38-126); ASPARTATE AMINO TRANSFERASE 13 U/L (14-36); BILIRUBIN,DIRECT 0.3 mg/dL (0.0-0.4); BILIRUBIN,TOTAL 0.3 mg/dL (0.2-1.3); BLOOD UREA NITROGEN 13 mg/dL (7-20); CALCIUM 7.1 mg/dL (8.4-10.2); GLUCOSE 130 mg/dL (75-110); POTASSIUM 3.5 mmol/L (3.6-5.0); TOTAL PROTEIN 3.1 g/dL (6.3-8.2)
[2018-03-22 05:45] LABS: CARBON DIOXIDE 26 mmol/L (22-30); CHLORIDE 105 mmol/L (98-107); SODIUM 134.8 mmol/L (137-145)
[2018-03-22 05:46] LABS: PREALBUMIN 4.1 mg/dL (17.6-36.0)
[2018-03-22] MEDS: HEPARIN SOD (PORCINE) 5,000 UNIT/ML 1 ML SYRINGE SUBCUT SCH ×3 (05:53→21:24)
[2018-03-22 05:56] LABS: ANION GAP 4 (5-19)
[2018-03-22] MEDS: TIOTROPIUM BROMIDE DPI 5 CAP/KIT (18 MCG/CAP) IH SCH (06:03)
--- NOTE | 2018-03-22 07:17 | RADIOLOGY REPORT (SQ) ---
EXAM DESCRIPTION: XR CHEST 1 VIEW COMPLETED DATE/TME: 03/22/2018 06:00 CLINICAL HISTORY: 63 years Female, resp failure sepsis COMPARISON: One day prior. NUMBER OF VIEWS/TECHNIQUE: 1/AP FINDINGS: Bilateral lower thoracic opacity/effusion. Moderate mixed airspace and interstitial opacities. Adequate appearing endotracheal tube. Likely adequate appearing enteric tube partially obscured. Right jugular central line tip at the inferior right atrium; consider 7.7 cm retraction of the right jugular central line. Normal cardiac silhouette size. No pneumothorax. Stable bony thorax. IMPRESSION: No significant change.
--- NOTE | 2018-03-22 08:37 | PDOC PROGRESS REPORT ---
Subjective Progress Note for:: 03/22/18 Subjective:: Patient doing about the same, off pressors now, still not waking up as much and responding, all sedation is off now for about 12 hours. Reason For Visit: GALLBLADDER CANCER Physical Exam Vital Signs: Temp Pulse Resp BP Pulse Ox 99.5 F 85 25 H 100/54 L 96 03/22/18 07:53 03/22/18 07:53 03/22/18 07:53 03/22/18 07:53 03/22/18 07:53 Intake & Output 03/21/18 03/22/18 03/23/18 06:59 06:59 06:59 Intake Total 3650 5517 Output Total 2647 2755 125 Balance 1003 2762 -125 Weight 97.6 kg General appearance: PRESENT: no acute distress, well-developed, well-nourished Head exam: PRESENT: atraumatic, normocephalic Eye exam: PRESENT: conjunctiva pink, EOMI, PERRLA. ABSENT: scleral icterus Ear exam: PRESENT: normal external ear exam Mouth exam: PRESENT: moist, tongue midline Neck exam: ABSENT: carotid bruit, JVD, lymphadenopathy, thyromegaly Respiratory exam: PRESENT: clear to auscultation christian. ABSENT: rales, rhonchi, wheezes Cardiovascular exam: PRESENT: RRR. ABSENT: diastolic murmur, rubs, systolic murmur Pulses: PRESENT: normal dorsalis pedis pul Vascular exam: PRESENT: normal capillary refill GI/Abdominal exam: PRESENT: normal bowel sounds, soft. ABSENT: distended, guarding, mass, organolmegaly, rebound, tenderness Rectal exam: PRESENT: deferred Extremities exam: PRESENT: full ROM. ABSENT: calf tenderness, clubbing, pedal edema Neurological exam: PRESENT: alert, awake, oriented to person, oriented to place, oriented to time, oriented to situation, CN II-XII grossly intact. ABSENT: motor sensory deficit Psychiatric exam: PRESENT: appropriate affect, normal mood. ABSENT: homicidal ideation, suicidal ideation Skin exam: PRESENT: dry, intact, warm. ABSENT: cyanosis, rash Results Laboratory Results: 03/21/18 07:38 03/22/18 05:10 03/21/18 03/21/18 03/22/18 12:10 12:15 05:10 Carbonic Acid 1.07 HCO3/H2CO3 Ratio 25:1 ABG pH 7.50 H ABG pCO2 35.7 ABG pO2 58.1 L ABG HCO3 27.1 H ABG O2 Saturation 92.5 L ABG Base Excess 3.8 FiO2 45% Sodium 135.0 L Potassium 4.0 D Chloride 105 Carbon Dioxide 26 Anion Gap 4 L BUN 10 Creatinine 0.46 L Est GFR ( Amer) > 60 Est GFR (Non-Af Amer) > 60 Glucose 122 H Calcium 7.0 L* Phosphorus Total Bilirubin AST ALT Alkaline Phosphatase Total Protein Albumin Prealbumin Blood Type A POSITIVE Antibody Screen NEGATIVE 03/22/18 05:10 Carbonic Acid HCO3/H2CO3 Ratio ABG pH ABG pCO2 ABG pO2 ABG HCO3 ABG O2 Saturation ABG Base Excess FiO2 Sodium 134.8 L Potassium 3.5 L Chloride 105 Carbon Dioxide 26 Anion Gap 4 L BUN 13 Creatinine 0.42 L Est GFR ( Amer) > 60 Est GFR (Non-Af Amer) > 60 Glucose 130 H Calcium 7.1 L Phosphorus 3.0 Total Bilirubin 0.3 AST 13 L ALT 15 Alkaline Phosphatase 60 Total Protein 3.1 L Albumin 1.4 L Prealbumin 4.1 L Blood Type Antibody Screen 03/16/18 09:37 Blood Blood Culture - Final NO GROWTH IN 5 DAYS 03/16/18 09:13 Blood Blood Culture - Final NO GROWTH IN 5 DAYS 03/16/18 03/18/18 03/18/18 05:06 04:45 19:10 CK-MB (CK-2) 1.10 Troponin I < 0.012 < 0.012 NT-Pro-B Natriuret Pep 513 03/18/18 03/20/18 19:50 12:05 CK-MB (CK-2) Troponin I NT-Pro-B Natriuret Pep 272 659 Impressions: KUB X-Ray 03/11/18 00:00 IMPRESSION: There are mildly dilated small bowel loops throughout the left a bdomen, developing ileus or obstruction possible. Hepatobiliary Scan Nuclear Medicine 03/12/18 00:00 IMPRESSION: Bile leak in the gallbladder fossa. Catheter Placement 03/14/18 00:00 IMPRESSION: IMAGE(S) OBTAINED DURING PROCEDURE. Fluoroscopy 03/14/18 00:00 IMPRESSION: IMAGE(S) OBTAINED DURING PROCEDURE. Chest/Abdomen CTA 03/18/18 00:00 IMPRESSION: 1 . Status post cholecystectomy with pneumobilia. Upper abdominal ascites and pneumoperitoneum consistent with postsurgical change. 2. Bibasilar atelectasis with pleural effusions. Acute Abdomen Series 03/20/18 00:00 IMPRESSION: Postop ileus. Retroperitoneal Abscess Drainage 03/20/18 00:00 IMPRESSION: Successful CT-guided placement of drainage catheter. Abdomen/Pelvis CT 03/21/18 00:00 IMPRESSION: Interval endotracheal intubation. Interval worsening of now moderate right, small left pleural effusions and associated atelectasis or consolidation. IMPRESSION: 1. Postoperative findings of cholecystectomy with interval p lacement of a pigtail surgical drain within a fluid collection about the gallbladder fossa and anterior to the liver. There is near total interval resolution of this fluid collection. An additional surgical drain remains in the gallbladder fossa. 2. There is an interval increase in ascites elsewhere about the abdomen. 3. Anasarca. Chest CT 03/21/18 00:00 IMPRESSION: Interval endotracheal intubation. Interval worsening of now moderate right, small left pleural effusions and associated atelectasis or consolidation. IMPRESSION: 1. Postoperative findings of cholecystectomy with interval placement of a pigtail surgical drain within a fluid collection about the gallbladder fossa and anterior to the liver. There is near total interval resolution of this fluid collection. An additional surgical drain remains in the gallbladder fossa. 2. There is an interval increase in ascites elsewhere about the abdomen. 3. Anasarca. Chest X-Ray 03/22/18 06:00 IMPRESSION: No significant change. Assessment & Plan - Diagnosis (1) Gallbladder cancer Is this a current diagnosis for this admission?: Yes Plan: Continue to monitor, discussed with family and patient at length, spent greater than 35 minutes in discussion. At present patient does not have discernible metastatic disease, we should continue aggressive care. She did not is arousable but she has a lot of third spacing, and distribution of the sedative medications so it may take 48 hours to see mental status improvement.
[2018-03-22] MEDS ORDERED: FUROSEMIDE INJ/PF 20 MG/2 ML SDV ONE (09:34)
[2018-03-22] MEDS: POTASSI CL 20 MEQ/1/2NS 1L 20 MEQ/1,000 ML RTUINJ IV PRN (09:46)
[2018-03-22] MEDS: ACETAMINOPHEN 1,000 MG/100 ML RTUPB IV PRN (09:47)
[2018-03-22] MEDS: FLUCONAZOLE 200 MG/NS RTU 200 MG/100 ML RTUPB IV SCH (09:48)
[2018-03-22] MEDS: FAT EMULSIONS 250 ML IV SCH (09:49)
[2018-03-22] MEDS: FAMOTIDINE INJ/PF 20 MG/2 ML SDV IV SCH ×2 (09:56→21:23)
[2018-03-22] MEDS: SALMETEROL XINAFOATE DISKUS 50 MCG/1 DOSE 28 DOSE IH SCH ×2 (09:56→21:24)
[2018-03-22 10:25] LABS: HEMATOCRIT 25.6 % (36.0-47.0); HEMOGLOBIN 8.6 g/dL (12.0-15.5); MEAN CORPUSCULAR HEMOGLOBIN 27.9 pg (27.0-33.4); MEAN CORPUSCULAR HGB CONC 33.5 g/dL (32.0-36.0); MEAN CORPUSCULAR VOLUME 83 fl (80-97); PLATELET COUNT 344 10^3/uL (150-450); RED BLOOD COUNT 3.08 10^6/uL (3.72-5.28); RED CELL DISTRIBUTION WIDTH 15.2 % (11.5-14.0); WHITE BLOOD COUNT 13.5 10^3/uL (4.0-10.5)
[2018-03-22] MEDS ORDERED: FUROSEMIDE INJ/PF 20 MG/2 ML SDV IV PRN (10:53)
[2018-03-22 10:55] LABS: VANCOMYCIN,TROUGH 22.3 ug/mL (5.0-20.0)
--- NOTE | 2018-03-22 11:04 | PDOC PROGRESS REPORT ---
Subjective Progress Note for:: 03/22/18 Reason For Visit: GALLBLADDER CANCER Physical Exam Vital Signs: Temp Pulse Resp BP Pulse Ox 100.6 F H 92 22 H 108/58 L 93 03/22/18 10:46 03/22/18 10:00 03/22/18 10:46 03/22/18 10:46 03/22/18 10:46 Intake & Output 03/21/18 03/22/18 03/23/18 06:59 06:59 06:59 Intake Total 3650 5517 Output Total 2647 2755 200 Balance 1003 2762 -200 Weight 97.6 kg General appearance: PRESENT: other - still with poor responsivines has been off sedatives for about 12hrs although did have some morphine about 4 hrs ago appears comfortable on vent Eye exam: PRESENT: PERRLA Respiratory exam: PRESENT: decreased breath sounds - left greater than right Cardiovascular exam: PRESENT: RRR Pulses: PRESENT: normal carotid pulses, normal radial pulses, normal femoral pul ses, normal dorsalis pedis pul GI/Abdominal exam: PRESENT: soft - some bilous dranage via debby, mostly ascitic fluid green bile in perc bag, slowing in amts out Extremities exam: PRESENT: +2 edema Results Laboratory Results: 03/22/18 10:00 03/22/18 05:10 03/21/18 03/21/18 03/22/18 12:10 12:15 05:10 WBC RBC Hgb Hct MCV MCH MCHC RDW Plt Count Carbonic Acid 1.07 HCO3/H2CO3 Ratio 25:1 ABG pH 7.50 H ABG pCO2 35.7 ABG pO2 58.1 L ABG HCO3 27.1 H ABG O2 Saturation 92.5 L ABG Base Excess 3.8 FiO2 45% Sodium 135.0 L Potassium 4.0 D Chloride 105 Carbon Dioxide 26 Anion Gap 4 L BUN 10 Creatinine 0.46 L Est GFR ( Amer) > 60 Est GFR (Non-Af Amer) > 60 Glucose 122 H Calcium 7.0 L* Phosphorus Total Bilirubin AST ALT Alkaline Phosphatase Total Protein Albumin Prealbumin Blood Type A POSITIVE Antibody Screen NEGATIVE 03/22/18 03/22/18 05:10 10:00 WBC 13.5 H RBC 3.08 L Hgb 8.6 L Hct 25.6 L MCV 83 MCH 27.9 MCHC 33.5 RDW 15.2 H Plt Count 344 Carbonic Acid HCO3/H2CO3 Ratio ABG pH ABG pCO2 ABG pO2 ABG HCO3 ABG O2 Saturation ABG Base Excess FiO2 Sodium 134.8 L Potassium 3.5 L Chloride 105 Carbon Dioxide 26 Anion Gap 4 L BUN 13 Creatinine 0.42 L Est GFR ( Amer) > 60 Est GFR (Non-Af Amer) > 60 Glucose 130 H Calcium 7.1 L Phosphorus 3.0 Total Bilirubin 0.3 AST 13 L ALT 15 Alkaline Phosphatase 60 Total Protein 3.1 L Albumin 1.4 L Prealbumin 4.1 L Blood Type Antibody Screen 03/16/18 09:37 Blood Blood Culture - Final NO GROWTH IN 5 DAYS 03/16/18 09:13 Blood Blood Culture - Final NO GROWTH IN 5 DAYS 03/16/18 03/18/18 03/18/18 05:06 04:45 19:10 CK-MB (CK-2) 1.10 Troponin I < 0.012 < 0.012 NT-Pro-B Natriuret Pep 513 03/18/18 03/20/18 19:50 12:05 CK-MB (CK-2) Troponin I NT-Pro-B Natriuret Pep 272 659 Impressions: KUB X-Ray 03/11/18 00:00 IMPRESSION: There are mildly dilated small bowel loops throughout the left abdomen, developing ileus or obstruction possible. Hepatobiliary Scan Nuclear Medicine 03/12/18 00:00 IMPRESSION: Bile leak in the gallbladder fossa. Catheter Placement 03/14/18 00:00 IMPRESSION: IMAGE(S) OBTAINED DURING PROCEDURE. Fluoroscopy 03/14/18 00:00 IMPRESSION: IMAGE(S) OBTAINED DURING PROCEDURE. Chest/Abdomen CTA 03/18/18 00:00 IMPRESSION: 1 . Status post cholecystectomy with pneumobilia. Upper abdominal ascites and pneumoperitoneum consistent with postsurgical change. 2. Bibasilar atelectasis with pleural effusions. Acute Abdomen Series 03/20/18 00:00 IMPRESSION: Postop ileus. Retroperitoneal Abscess Drainage 03/20/18 00:00 IMPRESSION: Successful CT-guided placement of drainage catheter. Abdomen/Pelvis CT 03/21/18 00:00 IMPRESSION: Interval endotracheal intubation. Interval worsening of now moderate right, small left pleural effusions and associated atelectasis or consolidation. IMPRESSION: 1. Postoperative findings of cholecystectomy with interval placement of a pigtail surgical drain within a fluid collection about the gallbladder fossa and anterior to the liver. There is near total interval res olution of this fluid collection. An additional surgical drain remains in the gallbladder fossa. 2. There is an interval increase in ascites elsewhere about the abdomen. 3. Anasarca. Chest CT 03/21/18 00:00 IMPRESSION: Interval endotracheal intubation. Interval worsening of now moderate right, small left pleural effusions and associated atelectasis or consolidation. IMPRESSION: 1. Postoperative findings of cholecystectomy with interval placement of a pigtail surgical drain within a fluid collection about the gallbladder fossa and anterior to the liver. There is near total interval resolution of this fluid collection. An additional surgical drain remains in the gallbladder fossa. 2. There is an interval increase in ascites elsewhere about the abdomen. 3. Anasarca. Chest X-Ray 03/22/18 06:00 IMPRESSION: No significant change. Assessment & Plan - Diagnosis (1) Acute respiratory failure with hypoxia Is this a current diagnosis for this admission?: Yes (3) Bile leak, postoperative Is this a current diagnosis for this admission?: Yes (4) Full code status Is this a current diagnosis for this admission?: Yes - Plan Summary Plan Summary: tnx 1 uprbc today cont diuresis, will add lasix after blood bilat pleural effusions, cxr looks better than yesterday
--- NOTE | 2018-03-22 13:05 | PDOC PROGRESS REPORT ---
Subjective Progress Note for:: 03/22/18 Subjective:: 63 y.o. F with HTN, asthma and COPD admitted to [facility] 03/01/2018 for ch olecystectomy to remove cancerous gallbladder. Within days of surgery there was a large amount of output noted in her JASKARAN drain. The patient underwent an ERCP on 03/14/2018 with CBD stent placement. Within 24hrs she began developing signs of sepsis and the hospitalist service was consulted for medical management. Follow up CT Abd/Pelvis showed small amount of free air in RUQ and pneumobilia, small a mount of free fluid surrounding the liver and in RUQ, and a small R pleural effusion. The patient was seen on morning rounds while was present. She is off sedation x ~36 hours (stopped 0600 on 03/20/17), has recieved total of 24 mg IV morphin in last 24 hours. Remains lethargic and minimally responsive; did not wake for me today but reportedly shook her head 'no' to a question this morning. She has been weaned off of Robert-Synephrine and is maintaining adequate, but soft, blood pressures (110/60). Currently on IV vancomycin and meropenem for sepsis secondary to bile leak following radical cholecystectomy and partial hepatectomy for metastatic gallbladder cancer. Percutaneous drain placed by interventional radiology. Cultures growing Gm (-) rods, Gm (+) cocci, and yeast. Santos catheter is in place; improved urinary output. Patient w/ third spacing; recieved IV albumin and Hespan, now on TPN. Reason For Visit: GALLBLADDER CANCER Physical Exam Vital Signs: Temp Pulse Resp BP Pulse Ox 100.6 F H 92 22 H 108/58 L 93 03/22/18 10:46 03/22/18 10:00 03/22/18 10:46 03/22/18 10:46 03/22/18 10:46 Intake & Output 03/21/18 03/22/18 03/23/18 06:59 06:59 06:59 Intake Total 3650 5517 Output Total 2647 2755 200 Balance 1003 2762 -200 Weight 97.6 kg General appearance: PRESENT: obese, well-developed, well-nourished, other - acutely ill appearing Head exam: PRESENT: atraumatic, normocephalic Eye exam: PRESENT: conjunctiva pink, PERRLA. ABSENT: scleral icterus Mouth exam: PRESENT: moist, tongue midline, other - NG/ET tubes Neck exam: ABSENT: carotid bruit, JVD, lymphadenopathy, thyromegaly Respiratory exam: PRESENT: decreased breath sounds - bibasilar; somewhat worse today, prolonged expiratory phas, symmetrical, tachypnea - decreased; now consistently mid 20s (30s-40s yesterday). ABSENT: rales, rhonchi, wheezes Cardiovascular exam: PRESENT: RRR. ABSENT: diastolic murmur, rubs, systolic murmur Pulses: PRESENT: normal dorsalis pedis pul Vascular exam: PRESENT: normal capillary refill GI/Abdominal exam: PRESENT: ascites, distended, normal bowel sounds, soft. ABSENT: guarding, mass, organolmegaly, rebound, tenderness Rectal exam: PRESENT: deferred Gentrourinary exam: PRESENT: indwelling catheter Extremities exam: PRESENT: +2 edema - all extremities. ABSENT: calf tenderness, clubbing, pedal edema Neurological exam: PRESENT: CN II-XII grossly intact, other - arousable; sed ation off x36 hours. ABSENT: motor sensory deficit Skin exam: PRESENT: dry, warm, other - Surgical incision/drains to abdomen. ABSENT: cyanosis, rash Results Laboratory Results: 03/22/18 10:00 03/22/18 05:10 03/21/18 03/21/18 03/22/18 12:10 12:15 05:10 WBC RBC Hgb Hct MCV MCH MCHC RDW Plt Count Carbonic Acid 1.07 HCO3/H2CO3 Ratio 25:1 ABG pH 7.50 H ABG pCO2 35.7 ABG pO2 58.1 L ABG HCO3 27.1 H ABG O2 Saturation 92.5 L ABG Base Excess 3.8 FiO2 45% Sodium 135.0 L Potassium 4.0 D Chloride 105 Carbon Dioxide 26 Anion Gap 4 L BUN 10 Creatinine 0.46 L Est GFR ( Amer) > 60 Est GFR (Non-Af Amer) > 60 Glucose 122 H Calcium 7.0 L* Phosphorus Total Bilirubin AST ALT Alkaline Phosphatase Total Protein Albumin Prealbumin Blood Type A POSITIVE Antibody Screen NEGATIVE 03/22/18 03/22/18 05:10 10:00 WBC 13.5 H RBC 3.08 L Hgb 8.6 L Hct 25.6 L MCV 83 MCH 27.9 MCHC 33.5 RDW 15.2 H Plt Count 344 Carbonic Acid HCO3/H2CO3 Ratio ABG pH ABG pCO2 ABG pO2 ABG HCO3 ABG O2 Saturation ABG Base Excess FiO2 Sodium 134.8 L Potassium 3.5 L Chloride 105 Carbon Dioxide 26 Anion Gap 4 L BUN 13 Creatinine 0.42 L Est GFR ( Amer) > 60 Est GFR (Non-Af Amer) > 60 Glucose 130 H Calcium 7.1 L Phosphorus 3.0 Total Bilirubin 0.3 AST 13 L ALT 15 Alkaline Phosphatase 60 Total Protein 3.1 L Albumin 1.4 L Prealbumin 4.1 L Blood Type Antibody Screen 03/16/18 09:37 Blood Blood Culture - Final NO GROWTH IN 5 DAYS 03/16/18 09:13 Blood Blood Culture - Final NO GROWTH IN 5 DAYS 03/16/18 03/18/18 03/18/18 05:06 04:45 19:10 CK-MB (CK-2) 1.10 Troponin I < 0.012 < 0.012 NT-Pro-B Natriuret Pep 513 03/18/18 03/20/18 19:50 12:05 CK-MB (CK-2) Troponin I NT-Pro-B Natriuret Pep 272 659 Impressions: KUB X-Ray 03/11/18 00:00 IMPRESSION: There are mildly dilated small bowel loops throughout the left abdomen, developing ileus or obstruction possible. Hepatobiliary Scan Nuclear Medicine 03/12/18 00:00 IMPRESSION: Bile leak in the gallbladder fossa. Catheter Placement 03/14/18 00:00 IMPRESSION: IMAGE(S) OBTAINED DURING PROCEDURE. Fluoroscopy 03/14/18 00:00 IMPRESSION: IMAGE(S) OBTAINED DURING PROCEDURE. Chest/Abdomen CTA 03/18/18 00:00 IMPRESSION: 1 . Status post cholecystectomy with pneumobilia. Upper abdominal ascites and pneumoperitoneum consistent with postsurgical change. 2. Bibasilar atelectasis with pleural effusions. Acute Abdomen Series 03/20/18 00:00 IMPRESSION: Postop ileus. Retroperitoneal Abscess Drainage 03/20/18 00:00 IMPRESSION: Successful CT-guided placement of drainage catheter. Abdomen/Pelvis CT 03/21/18 00:00 IMPRESSION: Interval endotracheal intubation. Interval worsening of now moderate right, small left pleural effusions and associated atelectasis or consolidation. IMPRESSION: 1. Postoperative findings of cholecystectomy with interval placement of a pigtail surgical drain within a fluid collection about the gallbladder fossa and anterior to the liver. There is near total interval resolution of this fluid collection. An additional surgical drain remains in the gallbladder fossa. 2. There is an interval increase in ascites elsewhere about the abdomen. 3. Anasarca. Chest CT 03/21/18 00:00 IMPRESSION: Interval endotracheal intubation. Interval worsening of now moderate right, small left pleural effusions and associated atelectasis or consolidation. IMPRESSION: 1. Postoperative findings of cholecystectomy with interval placement of a pigtail surgical drain within a fluid collection about the gallbladder fossa and anterior to the liver. There is near total interval resolution of this fluid collection. An additional surgical drain remains in the gallbladder fossa. 2. There is an interval increase in ascites elsewhere about the abdomen. 3. Anasarca. Chest X-Ray 03/22/18 06:00 IMPRESSION: No significant change. Assessment & Plan - Diagnosis (1) Sepsis Is this a current diagnosis for this admission?: Yes Plan: Sepsis secondary to intra-abdominal infection; leukocytosis stable (13.5-> 13.8- > 13.5), lactic acid nml, remains febrile (101.6). Evidence by tachycardia, leukocyosis, fever (PMCP456.2), tachypnea (RR 24-40) No evidence of PNA, blood cultures negative at 5 days Repeat blood cultures negative at 24 hours Urinalysis negative Now s/p percutaneous drain placement. Peritoneal fluid C/S growing klebsiella pneumoniae, gram-positive cocci, gram-negative rods, yeast Peritoneal fluid Fungus culture pending. Sputum culture pending. Continue Vancomycin and Meropenem, IV Diflucan. Previously received Cipro pre-operatively before Ex Lap, postoperatively received Ancef and Flagyl 03/06-03/13 Infectious Disease is consulted; appreciate Dr. Vela's evaluation and recommendations. (2) Acute respiratory failure with hypoxia Is this a current diagnosis for this admission?: Yes Plan: Secondary to poor respiratory effort/splinting stemming from postoperative pain resulting in atelectasis and bilateral pleural effusions; complicated by sepsis. Now requiring mechanical ventilation. Bilateral pleural effusions on CTA; R>L. Continue to be present on CXR. CT chest demonstrates increase in pleural effusions, R>L with associated atelectasis ProBNP 659, echocardiogram is reassuring. LVEF 65%, normal diastolic function Continue supplemental oxygen, mechanical ventilation as needed to maintain oxygen saturations. Scheduled and as needed nebulizer treatments. Lasix 20 mg before and after PRBC today; improved urinary output. Pulmonology is consulted; appreciate Dr. Booth's assistance. 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 Tadeo's assistance. Surgery is primary; appreciate Dr. Michaud's expertise with surgical/ oncological cases. (4) Hypotension Is this a current diagnosis for this admission?: Yes Plan: Improved; now off robert-Synephrine. Secondary to sepsis. Previously provided albumin and Hespan. Continue gentle IVF and TPN for hypoalbuminemia. (5) Postoperative pain Is this a current diagnosis for this admission?: Yes Plan: Status post cholecystectomy and ERCP with JASKARAN and percutaneous drains in place. Postoperative pain may have contributed to her acute respiratory failure with hypoxia secondary to splinting. Continue providing analgesics as needed. Oxycodone per NG, IV tylenol or toradaol is available. Patient is currently sedated and mechanically ventilated. (6) Anxiety Is this a current diagnosis for this admission?: Yes Plan: Patient has a PMH of anxiety Family reports the patient has been significantly anxious while inpatient Was previously receiving 1 mg Ativan as needed, but nursing staff reported concerns that patient became very somnolent following administration. Ativan 1 mg via NG tube every 6 hours as needed. (7) Anemia Qualifiers: Other causes of anemia: chronic disease, other Is this a current diagnosis for this admission?: Yes Plan: Continues to trend down; 13.5-> 8.6 Orders for 1 unit PRBC today. (8) Full code status Is this a current diagnosis for this admission?: Yes - Time Time Spent with patient: 35 or more minutes Medications reviewed and adjusted accordingly: Yes - Inpatient Certification Based on my medical assessment, after consideration of the patient's comorbidities, presenting symptoms, or acuity I expect that the services needed warrant INPATIENT care.: Yes I certify that my determination is in accordance with my understanding of Medicare's requirements for reasonable and necessary INPATIENT services [42 CFR 412.3e].: Yes Medical Necessity: Significant Comorbidiites Make Outpatient Treatment Too Risky, Need For IV Fluids, Need For Continuous Telemetry Monitoring, Need for Nebulizer Therapy and Monitoring of Response, Need for Pain Control, Need for IV Antibiotics
[2018-03-22] MEDS: KETOROLAC TROMETHAMINE INJ/PF 30 MG/1 ML SDV IV PRN ×2 (14:59→21:23)
[2018-03-22] MEDS: OXYCODONE-ACETAMINOPHEN 5-325 MG TABLET NG PRN ×2 (15:00→23:05)
[2018-03-22] MEDS: VANCOMYCIN HCL 1,000 MG in DEXTROSE 5%-WATER 250 ML IV SCH ×2 (16:00→21:22)
--- NOTE | 2018-03-22 16:30 | Progress Note ---
Provider Note Provider Note: ID Consult Follow Up Note Asked to re-review chart by Pharmacy. Pt not seen or examined. Interval events: Pt appears to have had some improvement. Percutaneous drain placed by IR on 03/20. Repeat CT on 03/21 showing near resolution of fluid collection anterior to liver. Was able to be weaned off robert-synephrine. Leukocytosis decreased from 31.5 on 03/16 to 13- recently. CT chest 03/21 was read as showing atelectasis or consolidation with moderate R and small L pleural effusions. AP CXR 03/22 with b/l lower thoracic opacity/effusion similar to previous, but tachypnea improved with diuresis and increased urine output. Has been empirically on meropenem from 03/19 to present, on vancomycin from 03/16 to present, and fluconazole was started on 03/21 based on report of yeast from the abdominal fluid collection that was sent for culture. Preliminarily it has also been reported to have growth of Klebsiella pneumoniae, which is susceptible to all antibiotics tested apart from ampicillin to which Klebsiella is intrinsically resistant. Also present are Gram positive cocci in chains. - Recommend discontinuing vancomycin. Pt is improving. Gram stain with GPCs in chains is likely either Strep or Enterococcus, and anti-MRSA activity should not be needed. Strep species should be susceptible to Rocephin. Dedicated anti- enterococcal activity is not likely to be needed for mixed infections with adequate source control. - Consider de-escalating meropenem to Rocephin 2 g daily. Anaerobic activity is not necessarily needed with biliary source. - In terms of antifungal therapy, non-albicans Karol species can include organisms that are fluconazole-susceptible (e.g. C parapsilosis, C tropicalis) and those that are fluconazole-resistant (C krusei) and those that might be susceptible to fluconazole but in a dose-dependent fashion. Micro lab cannot provide further information unfortunately regarding the species. What to do in this situation (continuing fluconazole vs switching to micafungin) may depend on severity of illness. Considering that she is stable/improving and has had drainage, it may be reasonable to continue fluconazole but at a higher dose (approximately 6 mg/kg) or 600 mg daily. Otherwise, switch to micafungin. - Duration of therapy for intraabdominal source of sepsis should not be prolonged (4-7 days after intervention), considering she has no undrained persistent collection. Azam Vela MD [facility] Infectious Diseases pager [phone]
[2018-03-22] MEDS: AMINO ACIDS 5%/D25W 1,000 ML IV PRN (17:07)
[2018-03-22] MEDS ORDERED: VANCOMYCIN HCL 1,250 MG in DEXTROSE 5%-WATER 250 ML IV SCH (18:00)
[2018-03-22] MEDS ORDERED: VANCOMYCIN HCL 1,000 MG in DEXTROSE 5%-WATER 250 ML IV SCH (18:00)
[2018-03-23] MEDS: INSULIN REG, HUMAN 100 UNIT/ML 3 ML VIAL (PYX) SUBCUT SCH ×4 (01:17→18:07)
[2018-03-23] MEDS: MEROPENEM 1 GM in NORMAL SALINE 50 ML IV SCH ×3 (02:07→17:38)
[2018-03-23] MEDS: POTASSI CL 20 MEQ/NS 1L 1,000 ML IV PRN ×2 (02:07→17:50)
[2018-03-23] MEDS: LEVALBUTEROL HCL NEB 0.63 MG/3 ML AMPUL NEB SCH ×4 (02:42→19:25)
[2018-03-23] MEDS: KETOROLAC TROMETHAMINE INJ/PF 30 MG/1 ML SDV IV PRN ×3 (03:52→18:25)
[2018-03-23] MEDS: VANCOMYCIN HCL 1,000 MG in DEXTROSE 5%-WATER 250 ML IV SCH ×2 (06:22→13:21)
[2018-03-23] MEDS: HEPARIN SOD (PORCINE) 5,000 UNIT/ML 1 ML SYRINGE SUBCUT SCH ×3 (06:24→21:20)
[2018-03-23] MEDS: TIOTROPIUM BROMIDE DPI 5 CAP/KIT (18 MCG/CAP) IH SCH (06:27)
--- NOTE | 2018-03-23 07:57 | PDOC PROGRESS REPORT ---
Subjective Progress Note for:: 03/23/18 Reason For Visit: GALLBLADDER CANCER Physical Exam Vital Signs: Temp Pulse Resp BP Pulse Ox 99.9 F 92 19 115/62 96 03/23/18 06:01 03/23/18 02:40 03/23/18 06:01 03/23/18 06:00 03/23/18 06:01 Intake & Output 03/22/18 03/23/18 03/24/18 06:59 06:59 06:59 Intake Total 5517 2250 Output Total 2755 2235 Balance 2762 15 Weight 102.3 kg General appearance: PRESENT: no acute distress, cooperative Eye exam: PRESENT: conjunctiva pink Neck exam: PRESENT: full ROM Respiratory exam: PRESENT: clear to auscultation christian, decreased breath sounds - decreased bs bilat, on ventilator Cardiovascular exam: PRESENT: RRR Vascular exam: PRESENT: normal capillary refill GI/Abdominal exam: PRESENT: soft - debby in place with min drainage perc drain with min op Extremities exam: PRESENT: full ROM, +2 edema Skin exam: PRESENT: dry Results Laboratory Results: 03/22/18 10:00 03/22/18 05:10 03/21/18 03/22/18 12:10 10:00 WBC 13.5 H RBC 3.08 L Hgb 8.6 L Hct 25.6 L MCV 83 MCH 27.9 MCHC 33.5 RDW 15.2 H Plt Count 344 Blood Type A POSITIVE Antibody Screen NEGATIVE 03/20/18 10:24 Abdomen - Specimen From Or Fungal Smear - Final Not Reportable 03/20/18 10:24 Abdomen - Specimen From Or Fungal Smear - Final Not Reportable 03/20/18 10:24 Abdomen - Specimen From Or Fungal Smear - Final Not Reportable 03/20/18 10:24 Abdomen - Specimen From Or Fungal Smear - Final Not Reportable 03/20/18 10:24 Abdomen - Specimen From Or Fungal Smear - Final Not Reportable 03/20/18 10:24 Abdomen - Specimen From Or Fungal Culture - Final Not Reportable 03/20/18 10:24 Abdomen - Specimen From Or Fungal Culture - Final Not Reportable 03/20/18 10:24 Abdomen - Specimen From Or Fungal Culture - Final Not Reportable 03/20/18 10:24 Abdomen - Specimen From Or Susceptibility Special Request - Final Not Reportable 03/20/18 09:50 Abdominal Fluid Gram Stain - Final 03/16/18 03/18/18 03/18/18 05:06 04:45 19:10 CK-MB (CK-2) 1.10 Troponin I < 0.012 < 0.012 NT-Pro-B Natriuret Pep 513 03/18/18 03/20/18 19:50 12:05 CK-MB (CK-2) Troponin I NT-Pro-B Natriuret Pep 272 659 Impressions: KUB X-Ray 03/11/18 00:00 IMPRESSION: There are mildly dilated small bowel loops throughout the left abdomen, developing ileus or obstruction possible. Hepatobiliary Scan Nuclear Medicine 03/12/18 00:00 IMPRESSION: Bile leak in the gallbladder fossa. Catheter Placement 03/14/18 00:00 IMPRESSION: IMAGE(S) OBTAINED DURING PROCEDURE. Fluoroscopy 03/14/18 00:00 IMPRESSION: IMAGE(S) OBTAINED DURING PROCEDURE. Chest/Abdomen CTA 03/18/18 00:00 IMPRESSION: 1 . Status post cholecystectomy with pneumobilia. Upper abdominal ascites and pneumoperitoneum consistent with postsurgical change. 2. Bibasilar atelectasis with pleural effusions. Acute Abdomen Series 03/20/18 00:00 IMPRESSION: Postop ileus. Retroperitoneal Abscess Drainage 03/20/18 00:00 IMPRESSION: Successful CT-guided placement of drainage catheter. Abdomen/Pelvis CT 03/21/18 00:00 IMPRESSION: Interval endotracheal intubation. Interval worsening of now moderate right, small left pleural effusions and associated atelectasis or consolidation. IMPRESSION: 1. Postoperative findings of cholecystectomy with interval placement of a pigtail surgical drain within a fluid collection about the gallbladder fossa and anterior to the liver. There is near total interval resolution of this fluid collection. An additional surgical drain remains in the gallbladder fossa. 2. There is an interval increase in ascites elsewhere about the abdomen. 3. Anasarca. Chest CT 03/21/18 00:00 IMPRESSION: Interval endotracheal intubation. Interval worsening of now moderate right, small left pleural effusions and associated atelectasis or consolidation. IMPRESSION: 1. Postoperative findings of cholecystectomy with interval placement of a pigtail surgical drain within a fluid collection about the gallbladder fossa and anterior to the liver. There is near total interval resolution of this fluid collection. An additional surgical drain remains in the gallbladder fossa. 2. There is an interval increase in ascites elsewhere about the abdomen. 3. Anasarca. Chest X-Ray 03/22/18 06:00 IMPRESSION: No significant change. Assessment & Plan - Diagnosis (1) Acute respiratory failure with hypoxia Is this a current diagnosis for this admission?: Yes (3) Bile leak, postoperative Is this a current diagnosis for this admission?: Yes (4) Full code status Is this a current diagnosis for this admission?: Yes - Inpatient Certification Medical Necessity: Need Close Monitoring Due to Risk of Patient Decompensation, Need For IV Fluids, Need For Continuous Telemetry Monitoring - Plan Summary Plan Summary: pt stable overnight perc drain op markedly decreased more awake this am and responding to commands labs pending this morning. plan will check labs this am inr now plan on ir thoracentesis today
[2018-03-23 07:59] LABS: ARTERIAL BLOOD BASE EXCESS 1.9 mmol/L; ARTERIAL BLOOD H2CO3 0.95 mmol/L (1.05-1.35); ARTERIAL BLOOD HCO3 24.3 mmol/L (20-24); ARTERIAL BLOOD PCO2 31.5 mmHg (35-45); ARTERIAL BLOOD PH 7.51 (7.35-7.45); ARTERIAL BLOOD TOTAL CO2 25.3 mmol/L (21-25); HEMATOCRIT 28.2 % (36.0-47.0); HEMOGLOBIN 9.4 g/dL (12.0-15.5); MEAN CORPUSCULAR HEMOGLOBIN 27.8 pg (27.0-33.4); MEAN CORPUSCULAR HGB CONC 33.4 g/dL (32.0-36.0); MEAN CORPUSCULAR VOLUME 83 fl (80-97); PLATELET COUNT 393 10^3/uL (150-450); RED BLOOD COUNT 3.39 10^6/uL (3.72-5.28); RED CELL DISTRIBUTION WIDTH 15.1 % (11.5-14.0); WHITE BLOOD COUNT 13.3 10^3/uL (4.0-10.5)
[2018-03-23 08:00] LABS: ARTERIAL BLOOD FIO2 45%
[2018-03-23] MEDS ORDERED: PHYTONADIONE INJ 10 MG/1 ML AMPULE SUBCUT ONE (08:00)
[2018-03-23 08:16] LABS: ANION GAP 6 (5-19); BLOOD UREA NITROGEN 12 mg/dL (7-20); CALCIUM 7.5 mg/dL (8.4-10.2); CARBON DIOXIDE 24 mmol/L (22-30); CHLORIDE 106 mmol/L (98-107); GLUCOSE 127 mg/dL (75-110); INTERNATIONAL RATION (INR) 1.07; POTASSIUM 4.1 mmol/L (3.6-5.0); PROTHROMBIN TIME 14.5 SEC (11.4-15.4); SODIUM 136.3 mmol/L (137-145)
--- NOTE | 2018-03-23 08:16 | PDOC PROGRESS REPORT ---
Subjective Progress Note for:: 03/23/18 Subjective:: Patient waking up a little bit more now, nods head to questions, but not yet following other commands, plan for thoracentesis today Reason For Visit: GALLBLADDER CANCER Physical Exam Vital Signs: Temp Pulse Resp BP Pulse Ox 99.9 F 92 19 115/62 96 03/23/18 06:01 03/23/18 02:40 03/23/18 06:01 03/23/18 06:00 03/23/18 06:01 Intake & Output 03/22/18 03/23/18 03/24/18 06:59 06:59 06:59 Intake Total 5517 2250 Output Total 2755 2235 Balance 2762 15 Weight 102.3 kg General appearance: PRESENT: no acute distress, well-developed, well-nourished Head exam: PRESENT: atraumatic, normocephalic Eye exam: PRESENT: conjunctiva pink, EOMI, PERRLA. ABSENT: scleral icterus Ear exam: PRESENT: normal external ear exam Mouth exam: PRESENT: moist, tongue midline Neck exam: ABSENT: carotid bruit, JVD, lymphadenopathy, thyromegaly Respiratory exam: PRESENT: clear to auscultation christian. ABSENT: rales, rhonchi, wheezes Cardiovascular exam: PRESENT: RRR. ABSENT: diastolic murmur, rubs, systolic murmur Pulses: PRESENT: normal dorsalis pedis pul Vascular exam: PRESENT: normal capillary refill GI/Abdominal exam: PRESENT: normal bowel sounds, soft. ABSENT: distended, guarding, mass, organolmegaly, rebound, tenderness Rectal exam: PRESENT: deferred Extremities exam: PRESENT: full ROM. ABSENT: calf tenderness, clubbing, pedal edema Neurological exam: PRESENT: alert, awake, oriented to person, oriented to place, oriented to time, oriented to situation, CN II-XII grossly intact. ABSENT: motor sensory deficit Psychiatric exam: PRESENT: appropriate affect, normal mood. ABSENT: homicidal ideation, suicidal ideation Skin exam: PRESENT: dry, intact, warm. ABSENT: cyanosis, rash Results Laboratory Results: 03/23/18 07:45 03/21/18 03/22/18 03/23/18 12:10 10:00 07:45 WBC 13.5 H 13.3 H RBC 3.08 L 3.39 L Hgb 8.6 L 9.4 L Hct 25.6 L 28.2 L MCV 83 83 MCH 27.9 27.8 MCHC 33.5 33.4 RDW 15.2 H 15.1 H Plt Count 344 393 Seg Neutrophils % Not Reportable Lymphocytes % Not Reportable Monocytes % Not Reportable Eosinophils % Not Reportable Basophils % Not Reportable Absolute Neutrophils Not Reportable Absolute Lymphocytes Not Reportable Absolute Monocytes Not Reportable Absolute Eosinophils Not Reportable Absolute Basophils Not Reportable Carbonic Acid HCO3/H2CO3 Ratio ABG pH ABG pCO2 ABG pO2 ABG HCO3 ABG O2 Saturation ABG Base Excess FiO2 Blood Type A POSITIVE Antibody Screen NEGATIVE 03/23/18 07:45 WBC RBC Hgb Hct MCV MCH MCHC RDW Plt Count Seg Neutrophils % Lymphocytes % Monocytes % Eosinophils % Basophils % Absolute Neutrophils Absolute Lymphocytes Absolute Monocytes Absolute Eosinophils Absolute Basophils Carbonic Acid 0.95 L HCO3/H2CO3 Ratio 25:1 ABG pH 7.51 H ABG pCO2 31.5 L ABG pO2 73.0 L ABG HCO3 24.3 H ABG O2 Saturation 96.0 ABG Base Excess 1.9 FiO2 45% Blood Type Antibody Screen 03/20/18 10:24 Abdomen - Specimen From Or Fungal Smear - Final Not Reportable 03/20/18 10:24 Abdomen - Specimen From Or Fungal Smear - Final Not Reportable 03/20/18 10:24 Abdomen - Specimen From Or Fungal Smear - Final Not Reportable 03/20/18 10:24 Abdomen - Specimen From Or Fungal Smear - Final Not Reportable 03/20/18 10:24 Abdomen - Specimen From Or Fungal Smear - Final Not Reportable 03/20/18 10:24 Abdomen - Specimen From Or Fungal Culture - Final Not Reportable 03/20/18 10:24 Abdomen - Specimen From Or Fungal Culture - Final Not Reportable 03/20/18 10:24 Abdomen - Specimen From Or Fungal Culture - Final Not Reportable 03/20/18 10:24 Abdomen - Specimen From Or Susceptibility Special Request - Final Not Reportable 03/20/18 09:50 Abdominal Fluid Gram Stain - Final 03/16/18 03/18/18 03/18/18 05:06 04:45 19:10 CK-MB (CK-2) 1.10 Troponin I < 0.012 < 0.012 NT-Pro-B Natriuret Pep 513 03/18/18 03/20/18 19:50 12:05 CK-MB (CK-2) Troponin I NT-Pro-B Natriuret Pep 872 929 Impressions: KUB X-Ray 03/11/18 00:00 IMPRESSION: There are mildly dilated small bowel loops throughout the left abdomen, developing ileus or obstruction possible. Hepatobiliary Scan Nuclear Medicine 03/12/18 00:00 IMPRESSION: Bile leak in the gallbladder fossa. Catheter Placement 03/14/18 00:00 IMPRESSION: IMAGE(S) OBTAINED DURING PROCEDURE. Fluoroscopy 03/14/18 00:00 IMPRESSION: IMAGE(S) OBTAINED DURING PROCEDURE. Chest/Abdomen CTA 03/18/18 00:00 IMPRESSION: 1 . Status post cholecystectomy with pneumobilia. Upper abdominal ascites and pneumoperitoneum consistent with postsurgical change. 2. Bibasilar atelectasis with pleural effusions. Acute Abdomen Series 03/20/18 00:00 IMPRESSION: Postop ileus. Retroperitoneal Abscess Drainage 03/20/18 00:00 IMPRESSION: Successful CT-guided placement of drainage catheter. Abdomen/Pelvis CT 03/21/18 00:00 IMPRESSION: Interval endotracheal intubation. Interval worsening of now moderate right, small left pleural effusions and associated atelectasis or consolidation. IMPRESSION: 1. Postoperative findings of cholecystectomy with interval placement of a pigtail surgical drain within a fluid collection about the gallbladder fossa and anterior to the liver. There is near total interval resolution of this fluid collection. An additional surgical drain remains in the gallbladder fossa. 2. There is an interval increase in ascites elsewhere about the abdomen. 3. Anasarca. Chest CT 03/21/18 00:00 IMPRESSION: Interval endotracheal intubation. Interval worsening of now moderate right, small left pleural effusions and associated atelectasis or consolidation. IMPRESSION: 1. Postoperative findings of cholecystectomy with interval placement of a pigtail surgical drain within a fluid collection about the gallbladder fossa and anterior to the liver. There is near total interval resolution of this fluid collection. An additional surgical drain remains in the gallbladder fossa. 2. There is an interval increase in ascites elsewhere about the abdomen. 3. Anasarca. Chest X-Ray 03/22/18 06:00 IMPRESSION: No significant change. Status: Image reviewed by me Assessment & Plan - Diagnosis (1) Gallbladder cancer Is this a current diagnosis for this admission?: Yes Plan: Patient seems to be doing better, await results of thoracentesis but likely to be secondary to anasarca, continue to follow closely - Time Time Spent with patient: 35 or more minutes - Inpatient Certification Based on my medical assessment, after consideration of the patient's comorbidities, presenting symptoms, or acuity I expect that the services needed warrant INPATIENT care.: Yes I certify that my determination is in accordance with my understanding of Medicare's requirements for reasonable and necessary INPATIENT services [42 CFR 412.3e].: Yes Medical Necessity: Need for Surgery, Risk of Complication if Not Cared For in Hospital
[2018-03-23 08:21] LABS: ABSOLUTE LYMPHOCYTES# (MANUAL) 1.7 10^3/uL (0.5-4.7); ABSOLUTE MONOCYTES # (MANUAL) 0.1 10^3/uL (0.1-1.4); ABSOLUTE NEUTROPHILS# (MANUAL) 10.9 10^3/uL (1.7-8.2); BAND NEUTROPHILS % (MANUAL) 1 % (3-5); BASOPHILS % (MANUAL) 1 % (0-2); EOSINOPHILS % (MANUAL) 3 % (0-6); LYMPHOCYTES % (MANUAL) 13 % (13-45); MONOCYTES % (MANUAL) 1 % (3-13); SEGMENTED NEUTROPHILS % (MAN) 81 % (42-78); TOTAL CELLS COUNTED 100
[2018-03-23 08:23] LABS: PLATELET COMMENT ADEQUATE; RBC MORPHOLOGY COMMENT NORMO-CYTIC/CHROMIC
[2018-03-23] MEDS ORDERED: MIDAZOLAM 2 MG/2 ML INJ ONE (08:55)
[2018-03-23] MEDS ORDERED: MIDAZOLAM 2 MG/2 ML INJ IV PRN (09:14)
[2018-03-23 09:29] LABS: ALANINE AMINOTRANSFERASE 20 U/L (9-52); ALBUMIN 1.6 g/dL (3.5-5.0); ALKALINE PHOSPHATASE 162 U/L (38-126); ASPARTATE AMINO TRANSFERASE 22 U/L (14-36); BILIRUBIN,DIRECT 0.3 mg/dL (0.0-0.4); BILIRUBIN,TOTAL 0.4 mg/dL (0.2-1.3); PHOSPHORUS 3.5 mg/dL (2.5-4.5); TOTAL PROTEIN 3.6 g/dL (6.3-8.2)
[2018-03-23] MEDS: FAMOTIDINE INJ/PF 20 MG/2 ML SDV IV SCH ×2 (09:38→21:20)
[2018-03-23] MEDS: FLUCONAZOLE 200 MG/NS RTU 200 MG/100 ML RTUPB IV SCH (09:39)
[2018-03-23] MEDS: SALMETEROL XINAFOATE DISKUS 50 MCG/1 DOSE 28 DOSE IH SCH ×2 (10:12→21:21)
[2018-03-23] MEDS: OXYCODONE-ACETAMINOPHEN 5-325 MG TABLET NG PRN ×3 (12:17→21:19)
[2018-03-23 13:04] LABS: FLUID APPEARANCE SLIGHTLY HAZY; FLUID COLOR YELLOW; FLUID SOURCE LUNG; FLUID TYPE PLEURAL; FLUID VISCOSITY LIQUID
--- NOTE | 2018-03-23 13:11 | RADIOLOGY REPORT (SQ) ---
EXAM DESCRIPTION: U/S THORACENTESIS WITH IMAGING COMPLETED DATE/TIME: 03/23/2018 12:33 pm REASON FOR STUDY: r pleural C23 MALIGNANT NEOPLASM OF GALLBLADDER COMPARISON: 03/22/2018 RADIATION DOSE: None. Ultrasound guidance utilized. LIMITATIONS: None. PROCEDURE: Procedure, risks, benefit, and alternative explained to patient's family who then gave wr itten consent. The posterior right chest wall was marked using ultrasound guidance. A time-out was called for correct marking verification. Chest prepped and draped using sterile technique. Local ane sthesia achieved using 10 ml of 1% lidocaine injection. A 6fr Safe-T- Centesis set was introduced in to the right pleural space. Small amount of fluid was aspirated. Catheter manipulation was performe d to try to aspirate additional fluid without success. The catheter was removed. Repeat ultrasound imaging demonstrated decreased size of the pocket with small residual pocket more medially. No furth er attempts were made. Sterile dressing was applied. No immediate complications. Images acquired during the procedure were stored on PACS. FINDINGS: ENTRY SITE: posterior right chest. FLUID VOLUME: 20 cc FLUID ANALYSIS: Serous fluid OTHER: Fluid sent to the lab for testing. IMPRESSION: Small volume right-sided thoracentesis utilizing ultrasound guidance as detailed above. COMMENT: Patient medication list reviewed: Yes- Quality ID# [id number]:Eligible professional attests to doc umenting in the medical record they obtained, updated, or reviewed the patient's current medications. TECHNICAL DOCUMENTATION: JOB ID: [id number] [employer]- All Rights Reserved Reading location - IP/workstation name: [email or web address]
[2018-03-23] MEDS: AMINO ACIDS 5%/D25W 1,000 ML IV PRN (13:21)
[2018-03-23 14:20] LABS: VANCOMYCIN,TROUGH 21.5 ug/mL (5.0-20.0)
--- NOTE | 2018-03-23 14:24 | RADIOLOGY REPORT (SQ) ---
EXAM DESCRIPTION: CHEST SINGLE VIEW COMPLETED DATE/TIME: 03/23/2018 2:09 pm REASON FOR STUDY: S/P RT THORACENTESIS COMPARISON: 03/22/2018 EXAM PARAMETERS: NUMBER OF VIEWS: One view. TECHNIQUE: Single frontal radiographic view of the chest acquired. RADIATION DOSE: NA LIMITATIONS: None. FINDINGS: LUNGS AND PLEURA: Status post right thoracentesis. Persistent but some decrease in the r ight pleural effusion and airspace disease. No change in the appearance of the pleuroparenchymal dis ease in the left mid-lower lung. No pneumothorax. MEDIASTINUM AND HILAR STRUCTURES: No masses. Contour normal. HEART AND VASCULAR STRUCTURES: Stable. BONES: No acute findings. HARDWARE: Endotracheal and nasogastric tubes, unchanged findings. Right central venous line is agai n noted with repositioning and and retracted. The tip appears to lie within the superior vena cava - right atrial junction. OTHER: No other significant finding. IMPRESSION: 1. Status post right thoracentesis. No pneumothorax. Persistent but some decrease in the airspace disease and pleural effusion. 2. Stable appearance to the pleuroparenchymal sees in the left mid-lower lung zones. 3. Endotracheal and nasogastric tubes, unchanged findings. Interval retraction of the right central venous line with the tip in the region of the superior vena cava--right atrial junction on the curre nt study. TECHNICAL DOCUMENTATION: JOB ID: [id number] [employer]- All Rights Reserved Reading location - IP/workstation name: [email or web address]
--- NOTE | 2018-03-23 15:04 | RADIOLOGY REPORT (SQ) ---
EXAM DESCRIPTION: CHEST SINGLE VIEW COMPLETED DATE/TIME: 03/23/2018 2:53 pm REASON FOR STUDY: 2 HOURS S/P RT THORACENTESIS COMPARISON: Same day radiograph EXAM PARAMETERS: NUMBER OF VIEWS: One view. TECHNIQUE: Single frontal radiographic view of the chest acquired. RADIATION DOSE: NA LIMITATIONS: None. FINDINGS: LUNGS AND PLEURA: No pneumothorax post thoracentesis. Persistent small bilateral effusion s, mildly improved aeration compared to prior. Bibasilar atelectasis. MEDIASTINUM AND HILAR STRUCTURES: Stable. HEART AND VASCULAR STRUCTURES: Stable. BONES: No acute findings. HARDWARE: Endotracheal tube tip overlies midthoracic trachea. Enteric tube tip below diaphragm but e xcluded by collimation. Right approach central venous catheter tip overlies SVC. OTHER: No other significant finding. IMPRESSION: No pneumothorax post thoracentesis. Improved aeration bilaterally with small residual effusions and bibasilar atelectasis. TECHNICAL DOCUMENTATION: JOB ID: [id number] [employer]- All Rights Reserved Reading location - IP/workstation name: [email or web address]
[2018-03-23] MEDS ORDERED: METOPROLOL TARTRATE PF/INJ 5 MG/5 ML SDV IV PRN (16:49)
--- NOTE | 2018-03-23 16:52 | PDOC PROGRESS REPORT ---
Subjective Progress Note for:: 03/23/18 Subjective:: 63 y.o. F with HTN, asthma and COPD admitted to [facility] 03/01/2018 for ch olecystectomy to remove cancerous gallbladder. Within days of surgery there was a large amount of output noted in her JASKARAN drain. The patient underwent an ERCP on 03/14/2018 with CBD stent placement. Within 24hrs she began developing signs of sepsis and the hospitalist service was consulted for medical management. Follow up CT Abd/Pelvis showed small amount of free air in RUQ and pneumobilia, small a mount of free fluid surrounding the liver and in RUQ, and a small R pleural effusion. The patient was seen on morning rounds while was present. She remains off sedation (stopped 0600 on 03/20/17). She is easily aroused today, opens eyes/makes eye contact, and though does not answer questions for me, does follow directions. She has been weaned off of Junito-Synephrine and is maintaining adequate blood pressures; now actually hypertensive. Currently on IV vancomycin and meropenem for sepsis secondary to bile leak following radical cholecystectomy and partial hepatectomy for metastatic ga llbladder cancer. Percutaneous drain placed by interventional radiology. Cultures growing Klebsie lla pneumoniae, enterococcus for Cialis, yeast. Santos catheter is in place; improved urinary output. Patient w/ third spacing; recieved IV albumin and Hespan, now on TPN. Reason For Visit: GALLBLADDER CANCER Physical Exam Vital Signs: Temp Pulse Resp BP Pulse Ox 100.0 F 95 28 H 152/80 H 99 03/23/18 14:01 03/23/18 14:24 03/23/18 14:24 03/23/18 14:00 03/23/18 15:53 Intake & Output 03/22/18 03/23/18 03/24/18 06:59 06:59 06:59 Intake Total 5517 2250 1602 Output Total 2755 2235 550 Balance 2762 15 1052 Weight 102.3 kg General appearance: PRESENT: obese, well-developed, well-nourished, other - Acutely ill-appearing; although are all improved Head exam: PRESENT: atraumatic, normocephalic Eye exam: PRESENT: conjunctiva pink, EOMI, PERRLA. ABSENT: scleral icterus Ear exam: PRESENT: normal external ear exam Mouth exam: PRESENT: moist, tongue midline, other - NG/ET tube Neck exam: ABSENT: carotid bruit, JVD, lymphadenopathy, thyromegaly Respiratory exam: PRESENT: decreased breath sounds, symmetrical, tachypnea, other - Mechanically ventilated. ABSENT: rales, rhonchi, wheezes Cardiovascular exam: PRESENT: RRR. ABSENT: diastolic murmur, rubs, systolic m urmur Pulses: PRESENT: normal dorsalis pedis pul Vascular exam: PRESENT: normal capillary refill GI/Abdominal exam: PRESENT: ascites, diminished bowel sounds, soft. ABSENT: distended, guarding, mass, organolmegaly, rebound, tenderness Rectal exam: PRESENT: deferred Extremities exam: PRESENT: full ROM, +2 edema - Slight improvement today. ABSENT: calf tenderness, clubbing, pedal edema Neurological exam: PRESENT: CN II-XII grossly intact, other - Arousable; following directions. ABSENT: motor sensory deficit Psychiatric exam: PRESENT: appropriate affect, normal mood. ABSENT: homicidal ideation, suicidal ideation Skin exam: PRESENT: dry, warm, other - Surgical incision/drains to abdomen. A BSENT: cyanosis, rash Results Laboratory Results: 03/23/18 07:45 03/23/18 07:45 03/21/18 03/23/18 03/23/18 12:10 07:45 07:45 WBC 13.3 H RBC 3.39 L Hgb 9.4 L Hct 28.2 L MCV 83 MCH 27.8 MCHC 33.4 RDW 15.1 H Plt Count 393 Seg Neutrophils % Not Reportable Lymphocytes % Not Reportable Monocytes % Not Reportable Eosinophils % Not Reportable Basophils % Not Reportable Absolute Neutrophils Not Reportable Absolute Lymphocytes Not Reportable Absolute Monocytes Not Reportable Absolute Eosinophils Not Reportable Absolute Basophils Not Reportable Carbonic Acid HCO3/H2CO3 Ratio ABG pH ABG pCO2 ABG pO2 ABG HCO3 ABG O2 Saturation ABG Base Excess FiO2 Sodium 136.3 L Potassium 4.1 Chloride 106 Carbon Dioxide 24 Anion Gap 6 BUN 12 Creatinine 0.47 L Est GFR ( Amer) > 60 Est GFR (Non-Af Amer) > 60 Glucose 127 H Calcium 7.5 L Phosphorus Magnesium Total Bilirubin AST ALT Alkaline Phosphatase Total Protein Albumin Fluid Type Fluid Source Fluid Color Fluid Appearance Fluid Viscosity Fluid WBC Fluid RBC Blood Type A POSITIVE Antibody Screen NEGATIVE 03/23/18 03/23/18 03/23/18 07:45 07:45 12:00 WBC RBC Hgb Hct MCV MCH MCHC RDW Plt Count Seg Neutrophils % Lymphocytes % Monocytes % Eosinophils % Basophils % Absolute Neutrophils Absolute Lymphocytes Absolute Monocytes Absolute Eosinophils Absolute Basophils Carbonic Acid 0.95 L HCO3/H2CO3 Ratio 25:1 ABG pH 7.51 H ABG pCO2 31.5 L ABG pO2 73.0 L ABG HCO3 24.3 H ABG O2 Saturation 96.0 ABG Base Excess 1.9 FiO2 45% Sodium Potassium Chloride Carbon Dioxide Anion Gap BUN Creatinine Est GFR ( Amer) Est GFR (Non-Af Amer) Glucose Calcium Phosphorus 3.5 Magnesium 1.8 Total Bilirubin 0.4 AST 22 ALT 20 Alkaline Phosphatase 162 H Total Protein 3.6 L Albumin 1.6 L Fluid Type PLEURAL Fluid Source LUNG Fluid Color YELLOW Fluid Appearance SLIGHTLY HAZY Fluid Viscosity LIQUID Fluid WBC 1090 Fluid RBC 2090 Blood Type Antibody Screen 03/20/18 12:54 Abdominal Fluid Gram Stain - Final 03/20/18 12:54 Abdominal Fluid Body Fluid Culture - Final Enterococcus Faecalis(Group D) Klebsiella Pneumoniae Yeast, Not Karol Albicans No Anaerobic Organisms 03/20/18 09:50 Abdominal Fluid Gram Stain - Final 03/20/18 09:50 Abdominal Fluid Body Fluid Culture - Final Klebsiella Pneumoniae Enterococcus Faecalis(Group D) Yeast, Not Karol Albicans No Anaerobic Organisms 03/20/18 10:24 Abdomen - Specimen From Or Fungal Smear - Final Not Reportable 03/20/18 10:24 Abdomen - Specimen From Or Fungal Smear - Final Not Reportable 03/20/18 10:24 Abdomen - Specimen From Or Fungal Smear - Final Not Reportable 03/20/18 10:24 Abdomen - Specimen From Or Fungal Smear - Final Not Reportable 03/20/18 10:24 Abdomen - Specimen From Or Fungal Smear - Final Not Reportable 03/20/18 10:24 Abdomen - Specimen From Or Fungal Culture - Final Not Reportable 03/20/18 10:24 Abdomen - Specimen From Or Fungal Culture - Final Not Reportable 03/20/18 10:24 Abdomen - Specimen From Or Fungal Culture - Final Not Reportable 03/20/18 10:24 Abdomen - Specimen From Or Susceptibility Special Request - Final Not Reportable 03/16/18 03/18/18 03/18/18 05:06 04:45 19:10 CK-MB (CK-2) 1.10 Troponin I < 0.012 < 0.012 NT-Pro-B Natriuret Pep 513 03/18/18 03/20/18 19:50 12:05 CK-MB (CK-2) Troponin I NT-Pro-B Natriuret Pep 272 659 Impressions: KUB X-Ray 03/11/18 00:00 IMPRESSION: There are mildly dilated small bowel loops throughout the left abdomen, developing ileus or obstruction possible. Hepatobiliary Scan Nuclear Medicine 03/12/18 00:00 IMPRESSION: Bile leak in the gallbladder fossa. Catheter Placement 03/14/18 00:00 IMPRESSION: IMAGE(S) OBTAINED DURING PROCEDURE. Fluoroscopy 03/14/18 00:00 IMPRESSION: IMAGE(S) OBTAINED DURING PROCEDURE. Chest/Abdomen CTA 03/18/18 00:00 IMPRESSION: 1 . Status post cholecystectomy with pneumobilia. Upper abdominal ascites and pneumoperitoneum consistent with postsurgical change. 2. Bibasilar atelectasis with pleural effusions. Acute Abdomen Series 03/20/18 00:00 IMPRESSION: Postop ileus. Retroperitoneal Abscess Drainage 03/20/18 00:00 IMPRESSION: Successful CT-guided placement of drainage catheter. Abdomen/Pelvis CT 03/21/18 00:00 IMPRESSION: Interval endotracheal intubation. Interval worsening of now moderate right, small left pleural effusions and associated atelectasis or consolidation. IMPRESSION: 1. Postoperative findings of cholecystectomy with interval placem ent of a pigtail surgical drain within a fluid collection about the gallbladder fossa and anterior to the liver. There is near total interval resolution of this fluid collection. An additional surgical drain remains in the gallbladder fossa. 2. There is an interval increase in ascites elsewhere about the abdomen. 3. Anasarca. Chest CT 03/21/18 00:00 IMPRESSION: Interval endotracheal intubation. Interval worsening of now moderate right, small left pleural effusions and associated atelectasis or consolidation. IMPRESSION: 1. Postoperative findings of cholecystectomy with interval placement of a pigtail surgical drain within a fluid collection about the g allbladder fossa and anterior to the liver. There is near total interval resolution of this fluid collection. An additional surgical drain remains in the gallbladder fossa. 2. There is an interval increase in ascites elsewhere about the abdomen. 3. Anasarca. Chest X-Ray 03/23/18 00:00 IMPRESSION: No pneumothorax post thoracentesis. Improved aeration bilaterally with small residual effusions and bibasilar atelectasis. Thoracentesis Ultrasound 03/23/18 12:00 IMPRESSION: Small volume right-sided thoracentesis utilizing ultrasound carlee simon as detailed above. Assessment & Plan - Diagnosis (1) Sepsis Is this a current diagnosis for this admission?: Yes Plan: Sepsis secondary to intra-abdominal infection; leukocytosis stable (13.5-> 13.8- > 13.5), lactic acid nml, remains febrile (101.6). Evidence by tachycardia, leukocyosis, fever (RTVC440.2), tachypnea (RR 24-40) No evidence of PNA, blood cultures negative at 5 days Repeat blood cultures negative at 72 hours Urinalysis negative Now s/p percutaneous drain placement. Peritoneal fluid C/S growing klebsiella pneumoniae, gram-positive cocci, gram-negative rods, yeast Peritoneal fluid Fungus culture pending. Sputum culture pending. Thoracic fluid AFB smear and cultures pending. Continue Vancomycin and Meropenem, IV Diflucan. Infectious Disease is consulted; appreciate Dr. Vela's evaluation and recommendations; will discuss deescalation of antibiotics with Surgery. Previously received Cipro pre-operatively before Ex Lap, postoperatively received Ancef and Flagyl 03/06-03/13 (2) Acute respiratory failure with hypoxia Is this a current diagnosis for this admission?: Yes Plan: Secondary to poor respiratory effort/splinting stemming from postoperative pain resulting in atelectasis and bilateral pleural effusions; complicated by sepsis. Now requiring mechanical ventilation; ABG is improved. Bilateral pleural effusions on CTA; R>L. Continue to be present on CXR. CT chest demonstrates increase in pleural effusions, R>L with associated atelectasis ProBNP 659, echocardiogram is reassuring. LVEF 65%, normal diastolic function Thoracentesis today; only 20 mL out. Continue supplemental oxygen, mechanical ventilation as needed to maintain oxygen saturations. Scheduled and as needed nebulizer treatments. Pulmonology is consulted; appreciate Dr. Booth's assistance. Ventilator maxi mcnamara per his expertise. 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 Tadeo's assistance. Surgery is primary; appreciate Dr. Michaud's expertise with surgical/oncological cases. (4) Hypotension Is this a current diagnosis for this admission?: Yes Plan: Resolved; blood pressure is now elevated to 150/80. Off junito-Synephrine. Secondary to sepsis. Previously provided albumin and Hespan. Continue gentle IVF and TPN for hypoalbuminemia. (5) Postoperative pain Is this a current diagnosis for this admission?: Yes Plan: Status post cholecystectomy and ERCP with JASKARAN and percutaneous drains in place. Postoperative pain may have contributed to her acute respiratory failure with hypoxia secondary to splinting. Continue providing analgesics as needed. Oxycodone per NG, IV tylenol or toradaol is available. Patient is currently sedated and mechanically ventilated. (6) Anxiety Is this a current diagnosis for this admission?: Yes Plan: Patient has a PMH of anxiety Family reports the patient has been significantly anxious while inpatient Was previously receiving 1 mg Ativan as needed, but nursing staff reported concerns that patient became very somnolent following administration. Ativan 1 mg via NG tube every 6 hours as needed. Versed 1 mg IV every 2 hours as needed. (7) Anemia Qualifiers: Other causes of anemia: chronic disease, other Is this a current diagnosis for this admission?: Yes Plan: Continues to trend down; 13.5-> 8.6-> 9.4 Now s/p 1 unit PRBC today. No evidence of ongoing bleeding. (8) Full code status Is this a current diagnosis for this admission?: Yes - Time Time Spent with patient: 35 or more minutes Medications reviewed and adjusted accordingly: Yes Anticipated discharge: Home - Inpatient Certification Based on my medical assessment, after consideration of the patient's comorbidities, presenting symptoms, or acuity I expect that the services needed warrant INPATIENT care.: Yes I certify that my determination is in accordance with my understanding of Medicare's requirements for reasonable and necessary INPATIENT services [42 CFR 412.3e].: Yes Medical Necessity: Significant Comorbidiites Make Outpatient Treatment Too Risky, Need Close Monitoring Due to Risk of Patient Decompensation, Need For IV Fluids, Need For Continuous Telemetry Monitoring, Need for Nebulizer Therapy and Monitoring of Response, Need for Pain Control, Need for IV Antibiotics, Need for Surgery, Risk of Complication if Not Cared For in Hospital, Risk of Diagnosis Which Will Require Inpatient Eval/Care/Monitoring
[2018-03-23] MEDS: MIDAZOLAM 2 MG/2 ML INJ IV PRN (20:15)
[2018-03-24] MEDS: VANCOMYCIN HCL 1,250 MG in DEXTROSE 5%-WATER 250 ML IV SCH ×3 (00:32→23:17)
[2018-03-24] MEDS: KETOROLAC TROMETHAMINE INJ/PF 30 MG/1 ML SDV IV PRN ×5 (00:32→23:48)
[2018-03-24] MEDS: MIDAZOLAM 2 MG/2 ML INJ IV PRN ×3 (00:33→13:02)
[2018-03-24] MEDS: INSULIN REG, HUMAN 100 UNIT/ML 3 ML VIAL (PYX) SUBCUT SCH ×5 (00:34→23:20)
[2018-03-24] MEDS: LEVALBUTEROL HCL NEB 0.63 MG/3 ML AMPUL NEB SCH ×4 (02:19→20:42)
[2018-03-24] MEDS: MEROPENEM 1 GM in NORMAL SALINE 50 ML IV SCH ×3 (02:32→17:49)
[2018-03-24 05:16] LABS: ARTERIAL BLOOD BASE EXCESS 1.3 mmol/L; ARTERIAL BLOOD H2CO3 0.91 mmol/L (1.05-1.35); ARTERIAL BLOOD HCO3 23.9 mmol/L (20-24); ARTERIAL BLOOD O2 SATURATION 96.7 % (94-98); ARTERIAL BLOOD PCO2 30.2 mmHg (35-45); ARTERIAL BLOOD PH 7.52 (7.35-7.45); ARTERIAL BLOOD PO2 77.8 mmHg (80-100); ARTERIAL BLOOD TOTAL CO2 24.8 mmol/L (21-25)
[2018-03-24 05:24] LABS: ARTERIAL BLOOD FIO2 45%; MEAN CORPUSCULAR HEMOGLOBIN 27.7 pg (27.0-33.4); MEAN CORPUSCULAR HGB CONC 33.2 g/dL (32.0-36.0); MEAN CORPUSCULAR VOLUME 84 fl (80-97); PLATELET COUNT 399 10^3/uL (150-450); RED BLOOD COUNT 3.23 10^6/uL (3.72-5.28); RED CELL DISTRIBUTION WIDTH 15.3 % (11.5-14.0); WHITE BLOOD COUNT 10.6 10^3/uL (4.0-10.5)
[2018-03-24] MEDS: HEPARIN SOD (PORCINE) 5,000 UNIT/ML 1 ML SYRINGE SUBCUT SCH ×3 (05:28→21:31)
[2018-03-24] MEDS: TIOTROPIUM BROMIDE DPI 5 CAP/KIT (18 MCG/CAP) IH SCH (05:29)
[2018-03-24 05:41] LABS: ANION GAP 5 (5-19); BLOOD UREA NITROGEN 12 mg/dL (7-20); CALCIUM 7.6 mg/dL (8.4-10.2); CARBON DIOXIDE 25 mmol/L (22-30); CHLORIDE 108 mmol/L (98-107); GLUCOSE 110 mg/dL (75-110); POTASSIUM 4.3 mmol/L (3.6-5.0); SODIUM 137.6 mmol/L (137-145)
[2018-03-24 05:52] LABS: ABSOLUTE LYMPHOCYTES# (MANUAL) 1.4 10^3/uL (0.5-4.7); ABSOLUTE MONOCYTES # (MANUAL) 0.8 10^3/uL (0.1-1.4); ABSOLUTE NEUTROPHILS# (MANUAL) 8.3 10^3/uL (1.7-8.2); ANISOCYTOSIS 1+; BASOPHILS % (MANUAL) 0 % (0-2); EOSINOPHILS % (MANUAL) 1 % (0-6); LYMPHOCYTES % (MANUAL) 13 % (13-45); MONOCYTES % (MANUAL) 8 % (3-13); PLATELET COMMENT ADEQUATE; POLYCHROMASIA 1+; SEGMENTED NEUTROPHILS % (MAN) 78 % (42-78); TOTAL CELLS COUNTED 100
[2018-03-24] MEDS: OXYCODONE-ACETAMINOPHEN 5-325 MG TABLET NG PRN ×2 (05:52→21:31)
--- NOTE | 2018-03-24 07:06 | RADIOLOGY REPORT (SQ) ---
EXAM DESCRIPTION: XR CHEST 1 VIEW COMPLETED DATE/TME: 03/24/2018 06:00 CLINICAL HISTORY: 63 years Female, mechanical ventilation COMPARISON: One day prior. NUMBER OF VIEWS/TECHNIQUE: 1/AP FINDINGS: Moderate mixed airspace and interstitial opacities. Bilateral lower thoracic opacity/effusion. Adequate appearing endotracheal tube. Likely adequate appearing enteric tube partially obscured. Adequate appearing right subclavian central line. Normal cardiac silhouette size. No pneumothorax. Stable bony thorax. IMPRESSION: No significant change.
[2018-03-24] MEDS ORDERED: POTASSI CL 20 MEQ/NS 1L 1,000 ML IV PRN (08:18)
[2018-03-24] MEDS: FAMOTIDINE INJ/PF 20 MG/2 ML SDV IV SCH ×2 (09:24→21:31)
[2018-03-24] MEDS: FLUCONAZOLE 200 MG/NS RTU 200 MG/100 ML RTUPB IV SCH (09:25)
[2018-03-24] MEDS: SALMETEROL XINAFOATE DISKUS 50 MCG/1 DOSE 28 DOSE IH SCH ×2 (10:00→21:32)
--- NOTE | 2018-03-24 10:51 | PDOC PROGRESS REPORT ---
Subjective Progress Note for:: 03/24/18 Reason For Visit: GALLBLADDER CANCER Physical Exam Vital Signs: Temp Pulse Resp BP Pulse Ox 100.8 F H 101 H 26 H 123/56 L 100 03/24/18 08:00 03/24/18 08:33 03/24/18 08:33 03/24/18 08:00 03/24/18 09:41 Intake & Output 03/23/18 03/24/18 03/25/18 06:59 06:59 06:59 Intake Total 2250 2952 Output Total 2235 1495 285 Balance 15 1457 -285 Weight 102.3 kg 103.4 kg General appearance: PRESENT: no acute distress Head exam: PRESENT: atraumatic Eye exam: PRESENT: conjunctiva pink Respiratory exam: PRESENT: decreased breath sounds Cardiovascular exam: PRESENT: RRR Pulses: PRESENT: normal radial pulses, normal femoral pulses Vascular exam: PRESENT: normal capillary refill GI/Abdominal exam: PRESENT: soft Rectal exam: PRESENT: deferred Extremities exam: PRESENT: full ROM Musculoskeletal exam: PRESENT: full ROM Focused psych exam: PRESENT: other - awake, alert and follows commands Results Laboratory Results: 03/24/18 04:50 03/24/18 04:50 03/23/18 03/23/18 03/24/18 12:00 13:40 04:50 WBC RBC Hgb Hct MCV MCH MCHC RDW Plt Count Seg Neutrophils % Lymphocytes % Monocytes % Eosinophils % Basophils % Absolute Neutrophils Absolute Lymphocytes Absolute Monocytes Absolute Eosinophils Absolute Basophils Carbonic Acid 0.91 L HCO3/H2CO3 Ratio 26:1 ABG pH 7.52 H ABG pCO2 30.2 L ABG pO2 77.8 L ABG HCO3 23.9 ABG O2 Saturation 96.7 ABG Base Excess 1.3 FiO2 45% Sodium Potassium Chloride Carbon Dioxide Anion Gap BUN Creatinine Est GFR ( Amer) Est GFR (Non-Af Amer) Glucose Calcium Total Protein 3.5 L Fluid Type PLEURAL Fluid Source LUNG Fluid Color YELLOW Fluid Appearance SLIGHTLY HAZY Fluid Viscosity LIQUID Fluid WBC 1090 Fluid RBC 2090 03/24/18 03/24/18 04:50 04:50 WBC 10.6 H RBC 3.23 L Hgb 9.0 L Hct 27.0 L MCV 84 MCH 27.7 MCHC 33.2 RDW 15.3 H Plt Count 399 Seg Neutrophils % Not Reportable Lymphocytes % Not Reportable Monocytes % Not Reportable Eosinophils % Not Reportable Basophils % Not Reportable Absolute Neutrophils Not Reportable Absolute Lymphocytes Not Reportable Absolute Monocytes Not Reportable Absolute Eosinophils Not Reportable Absolute Basophils Not Reportable Carbonic Acid HCO3/H2CO3 Ratio ABG pH ABG pCO2 ABG pO2 ABG HCO3 ABG O2 Saturation ABG Base Excess FiO2 Sodium 137.6 Potassium 4.3 Chloride 108 H Carbon Dioxide 25 Anion Gap 5 BUN 12 Creatinine 0.46 L Est GFR ( Amer) > 60 Est GFR (Non-Af Amer) > 60 Glucose 110 Calcium 7.6 L Total Protein Fluid Type Fluid Source Fluid Color Fluid Appearance Fluid Viscosity Fluid WBC Fluid RBC 03/20/18 12:54 Abdominal Fluid Gram Stain - Final 03/20/18 12:54 Abdominal Fluid Body Fluid Culture - Final Enterococcus Faecalis(Group D) Klebsiella Pneumoniae Yeast, Not Karol Albicans No Anaerobic Organisms 03/20/18 09:50 Abdominal Fluid Gram Stain - Final 03/20/18 09:50 Abdominal Fluid Body Fluid Culture - Final Klebsiella Pneumoniae Enterococcus Faecalis(Group D) Yeast, Not Karol Albicans No Anaerobic Organisms 03/16/18 03/18/18 03/18/18 05:06 04:45 19:10 CK-MB (CK-2) 1.10 Troponin I < 0.012 < 0.012 NT-Pro-B Natriuret Pep 513 03/18/18 03/20/18 19:50 12:05 CK-MB (CK-2) Troponin I NT-Pro-B Natriuret Pep 272 659 Impressions: KUB X-Ray 03/11/18 00:00 IMPRESSION: There are mildly dilated small bowel loops throughout the left abdomen, developing ileus or obstruction possible. Hepatobiliary Scan Nuclear Medicine 03/12/18 00:00 IMPRESSION: Bile leak in the gallbladder fossa. Catheter Placement 03/14/18 00:00 IMPRESSION: IMAGE(S) OBTAINED DURING PROCEDURE. Fluoroscopy 03/14/18 00:00 IMPRESSION: IMAGE(S) OBTAINED DURING PROCEDURE. Chest/Abdomen CTA 03/18/18 00:00 IMPRESSION: 1 . Status post cholecystectomy with pneumobilia. Upper abdominal ascites and pneumoperitoneum consistent with postsurgical change. 2. Bibasilar atelectasis with pleural effusions. Acute Abdomen Series 03/20/18 00:00 IMPRESSION: Postop ileus. Retroperitoneal Abscess Drainage 03/20/18 00:00 IMPRESSION: Successful CT-guided placement of drainage catheter. Abdomen/Pelvis CT 03/21/18 00:00 IMPRESSION: Interval endotracheal intubation. Interval worsening of now moderate right, small left pleural effusions and associated atelectasis or consolidation. IMPRESSION: 1. Postoperative findings of cholecystectomy with interval placement of a pigtail surgical drain within a fluid collection about the gallbladder fossa and anterior to the liver. There is near total interval resolution of this fluid collection. An additional surgical drain remains in the gallbladder fossa. 2. There is an interval increase in ascites elsewhere about the abdomen. 3. Anasarca. Chest CT 03/21/18 00:00 IMPRESSION: Interval endotracheal intubation. Interval worsening of now moderate right, small left pleural effusions and associated atelectasis or cons olidation. IMPRESSION: 1. Postoperative findings of cholecystectomy with interval placement of a pigtail surgical drain within a fluid collection about the gallbladder fossa and anterior to the liver. There is near total interval resolution of this fluid collection. An additional surgical drain remains in the gallbladder fossa. 2. There is an interval increase in ascites elsewhere about the abdomen. 3. Anasarca. Thoracentesis Ultrasound 03/23/18 12:00 IMPRESSION: Small volume right-sided thoracentesis utilizing ultrasound guidance as detailed above. Chest X-Ray 03/24/18 06:00 IMPRESSION: No significant change. Assessment & Plan - Diagnosis (1) Acute respiratory failure with hypoxia Is this a current diagnosis for this admission?: Yes (3) Bile leak, postoperative Is this a current diagnosis for this admission?: Yes (4) Full code status Is this a current diagnosis for this admission?: Yes - Plan Summary Plan Summary: appears much more alter today able to raise head off pillows to command appears comfortable on vent cxr reviewd, not sig changed appreciated input by medicine plan on lasix/albumin for fluid mobilization cont iv abx vent management per pulm
--- NOTE | 2018-03-24 11:52 | PDOC PROGRESS REPORT ---
Subjective Progress Note for:: 03/24/18 Subjective:: Patient doing much better, following commands Reason For Visit: GALLBLADDER CANCER Physical Exam Vital Signs: Temp Pulse Resp BP Pulse Ox 99.7 F 101 H 18 124/60 98 03/24/18 11:01 03/24/18 08:33 03/24/18 11:01 03/24/18 11:00 03/24/18 11:01 Intake & Output 03/23/18 03/24/18 03/25/18 06:59 06:59 06:59 Intake Total 2250 2952 Output Total 2235 1495 285 Balance 15 1457 -285 Weight 102.3 kg 103.4 kg General appearance: PRESENT: no acute distress, well-developed, well-nourished Head exam: PRESENT: atraumatic, normocephalic Eye exam: PRESENT: conjunctiva pink, EOMI, PERRLA. ABSENT: scleral icterus Ear exam: PRESENT: normal external ear exam Mouth exam: PRESENT: moist, tongue midline Neck exam: ABSENT: carotid bruit, JVD, lymphadenopathy, thyromegaly Respiratory exam: PRESENT: clear to auscultation christian. ABSENT: rales, rhonchi, wheezes Cardiovascular exam: PRESENT: RRR. ABSENT: diastolic murmur, rubs, systolic murmur Pulses: PRESENT: normal dorsalis pedis pul Vascular exam: PRESENT: normal capillary refill GI/Abdominal exam: PRESENT: normal bowel sounds, soft. ABSENT: distended, guarding, mass, organolmegaly, rebound, tenderness Rectal exam: PRESENT: deferred Extremities exam: PRESENT: full ROM. ABSENT: calf tenderness, clubbing, pedal edema Neurological exam: PRESENT: alert, awake, oriented to person, oriented to place, oriented to time, oriented to situation, CN II-XII grossly intact. ABSENT: motor sensory deficit Psychiatric exam: PRESENT: appropriate affect, normal mood. ABSENT: homicidal ideation, suicidal ideation Skin exam: PRESENT: dry, intact, warm. ABSENT: cyanosis, rash Results Laboratory Results: 03/24/18 04:50 03/24/18 04:50 03/23/18 03/23/18 03/24/18 12:00 13:40 04:50 WBC RBC Hgb Hct MCV MCH MCHC RDW Plt Count Seg Neutrophils % Lymphocytes % Monocytes % Eosinophils % Basophils % Absolute Neutrophils Absolute Lymphocytes Absolute Monocytes Absolute Eosinophils Absolute Basophils Carbonic Acid 0.91 L HCO3/H2CO3 Ratio 26:1 ABG pH 7.52 H ABG pCO2 30.2 L ABG pO2 77.8 L ABG HCO3 23.9 ABG O2 Saturation 96.7 ABG Base Excess 1.3 FiO2 45% Sodium Potassium Chloride Carbon Dioxide Anion Gap BUN Creatinine Est GFR ( Amer) Est GFR (Non-Af Amer) Glucose Calcium Total Protein 3.5 L Fluid Type PLEURAL Fluid Source LUNG Fluid Color YELLOW Fluid Appearance SLIGHTLY HAZY Fluid Viscosity LIQUID Fluid WBC 1090 Fluid RBC 2090 03/24/18 03/24/18 04:50 04:50 WBC 10.6 H RBC 3.23 L Hgb 9.0 L Hct 27.0 L MCV 84 MCH 27.7 MCHC 33.2 RDW 15.3 H Plt Count 399 Seg Neutrophils % Not Reportable Lymphocytes % Not Reportable Monocytes % Not Reportable Eosinophils % Not Reportable Basophils % Not Reportable Absolute Neutrophils Not Reportable Absolute Lymphocytes Not Reportable Absolute Monocytes Not Reportable Absolute Eosinophils Not Reportable Absolute Basophils Not Reportable Carbonic Acid HCO3/H2CO3 Ratio ABG pH ABG pCO2 ABG pO2 ABG HCO3 ABG O2 Saturation ABG Base Excess FiO2 Sodium 137.6 Potassium 4.3 Chloride 108 H Carbon Dioxide 25 Anion Gap 5 BUN 12 Creatinine 0.46 L Est GFR ( Amer) > 60 Est GFR (Non-Af Amer) > 60 Glucose 110 Calcium 7.6 L Total Protein Fluid Type Fluid Source Fluid Color Fluid Appearance Fluid Viscosity Fluid WBC Fluid RBC 03/20/18 12:54 Abdominal Fluid Gram Stain - Final 03/20/18 12:54 Abdominal Fluid Body Fluid Culture - Final Enterococcus Faecalis(Group D) Klebsiella Pneumoniae Yeast, Not Karol Albicans No Anaerobic Organisms 03/20/18 09:50 Abdominal Fluid Gram Stain - Final 03/20/18 09:50 Abdominal Fluid Body Fluid Culture - Final Klebsiella Pneumoniae Enterococcus Faecalis(Group D) Yeast, Not Karol Albicans No Anaerobic Organisms 03/16/18 03/18/18 03/18/18 05:06 04:45 19:10 CK-MB (CK-2) 1.10 Troponin I < 0.012 < 0.012 NT-Pro-B Natriuret Pep 513 03/18/18 03/20/18 19:50 12:05 CK-MB (CK-2) Troponin I NT-Pro-B Natriuret Pep 039 605 Impressions: KUB X-Ray 03/11/18 00:00 IMPRESSION: There are mildly dilated small bowel loops throughout the left abdomen, developing ileus or obstruction possible. Hepatobiliary Scan Nuclear Medicine 03/12/18 00:00 IMPRESSION: Bile leak in the gallbladder fossa. Catheter Placement 03/14/18 00:00 IMPRESSION: IMAGE(S) OBTAINED DURING PROCEDURE. Fluoroscopy 03/14/18 00:00 IMPRESSION: IMAGE(S) OBTAINED DURING PROCEDURE. Chest/Abdomen CTA 03/18/18 00:00 IMPRESSION: 1 . Status post cholecystectomy with pneumobilia. Upper abdominal ascites and pneumoperitoneum consistent with postsurgical change. 2. Bibasilar atelectasis with pleural effusions. Acute Abdomen Series 03/20/18 00:00 IMPRESSION: Postop ileus. Retroperitoneal Abscess Drainage 03/20/18 00:00 IMPRESSION: Successful CT-guided placement of drainage catheter. Abdomen/Pelvis CT 03/21/18 00:00 IMPRESSION: Interval endotracheal intubation. Interval worsening of now moderate right, small left pleural effusions and associated atelectasis or consolidation. IMPRESSION: 1. Postoperative findings of cholecystectomy with interval placement of a pigtail surgical drain within a fluid collection about the gallbladder fossa and anterior to the liver. There is near total interval resolution of this fluid collection. An additional surgical drain remains in the gallbladder fossa. 2. There is an interval increase in ascites elsewhere about the abdomen. 3. Anasarca. Chest CT 03/21/18 00:00 IMPRESSION: Interval endotracheal intubation. Interval worsening of now moderate right, small left pleural effusions and associated atelectasis or consolidation. IMPRESSION: 1. Postoperative findings of cholecystectomy with interval placement of a pigtail surgical drain within a fluid collection about the gallbladder fossa and anterior to the liver. There is near total interval resolution of this fluid collection. An additional surgical drain remains in the gallbladder fossa. 2. There is an interval increase in ascites elsewhere about the abdomen. 3. Anasarca. Thoracentesis Ultrasound 03/23/18 12:00 IMPRESSION: Small volume right-sided thoracentesis utilizing ultrasound guidance as detailed above. Chest X-Ray 03/24/18 06:00 IMPRESSION: No significant change. Assessment & Plan - Diagnosis (1) Gallbladder cancer Is this a current diagnosis for this admission?: Yes Plan: Continue to monitor, had a long discussion with brother who is at bedside and niece, spent about 45 minutes in discussion today - Time Time Spent with patient: 35 or more minutes - Inpatient Certification Based on my medical assessment, after consideration of the patient's comorbidities, presenting symptoms, or acuity I expect that the services needed warrant INPATIENT care.: Yes I certify that my determination is in accordance with my understanding of Medicare's requirements for reasonable and necessary INPATIENT services [42 CFR 412.3e].: Yes Medical Necessity: Need For IV Fluids, Need For Continuous Telemetry Monitoring, Need for Nebulizer Therapy and Monitoring of Response, Need for Neurological Checks, Risk of Complication if Not Cared For in Hospital
[2018-03-24] MEDS: ALBUTEROL SULFATE 0.083% NEB 2.5 MG/3 ML AMPUL NEB PRN (12:03)
[2018-03-24] MEDS: FUROSEMIDE INJ/PF 20 MG/2 ML SDV IV SCH ×2 (13:38→21:32)
[2018-03-24] MEDS: ALBUMIN HUMAN 12.5 GM/50 ML RTUINJ IV SCH (13:41)
[2018-03-24] MEDS: AMINO ACIDS 5%/D25W 1,000 ML IV PRN (15:57)
--- NOTE | 2018-03-24 17:18 | PDOC PROGRESS REPORT ---
Subjective Progress Note for:: 03/24/18 Subjective:: 63 y.o. F with HTN, asthma and COPD admitted to [facility] 03/01/2018 for ch olecystectomy to remove cancerous gallbladder. Within days of surgery there was a large amount of output noted in her JASKARAN drain. The patient underwent an ERCP on 03/14/2018 with CBD stent placement. Within 24hrs she began developing signs of sepsis and the hospitalist service was consulted for medical management. Follow up CT Abd/Pelvis showed small amount of free air in RUQ and pneumobilia, small a mount of free fluid surrounding the liver and in RUQ, and a small R pleural effusion. The patient was seen on morning rounds while her granddaughter was present; met separately with her this afternoon. She remains off sedation (stopped 0600 on 03/20/17). She is fully awake today, opens eyes/makes eye contact, answers all questions and follows commands. She has been weaned off of Robert-Synephrine and is maintaining adequate blood pressures. Currently on IV vancomycin and meropenem for sepsis secondary to bile leak following radical cholecystectomy and partial hepatectomy for metastatic gallbladder cancer. Percutaneous drain placed by interventional radiology. Cultures growing Kleb siella pneumoniae, enterococcus, yeast. Santos catheter is in place; improved urinary output. Patient w/ third spacing; recieved IV albumin and Hespan, now on TPN. Will repeat Albumin and Lasix today. Reason For Visit: GALLBLADDER CANCER Physical Exam Vital Signs: Temp Pulse Resp BP Pulse Ox 100.2 F 101 H 16 132/66 H 96 03/24/18 15:01 03/24/18 13:56 03/24/18 15:01 03/24/18 15:00 03/24/18 15:01 Intake & Output 03/23/18 03/24/18 03/25/18 06:59 06:59 06:59 Intake Total 2250 2952 1400 Output Total 2235 1495 1000 Balance 15 1457 400 Weight 102.3 kg 103.4 kg General appearance: PRESENT: no acute distress, obese, well-developed, well-no urished, other - Acutely ill-appearing; although are all improved Head exam: PRESENT: atraumatic, normocephalic Eye exam: PRESENT: conjunctiva pink, EOMI, PERRLA. ABSENT: scleral icterus Ear exam: PRESENT: normal external ear exam Mouth exam: PRESENT: moist, tongue midline, other - NG/ET tubes Neck exam: ABSENT: carotid bruit, JVD, lymphadenopathy, thyromegaly Respiratory exam: PRESENT: clear to auscultation christian, decreased breath sounds - bibasilar; L>R, symmetrical, unlabored, other - mechanically ventilated. ABSENT: rales, rhonchi, wheezes Cardiovascular exam: PRESENT: RRR. ABSENT: diastolic murmur, rubs, systolic murmur Pulses: PRESENT: normal dorsalis pedis pul Vascular exam: PRESENT: normal capillary refill GI/Abdominal exam: PRESENT: ascites, normal bowel sounds, soft. ABSENT: distended, guarding, mass, organolmegaly, rebound, tenderness Rectal exam: PRESENT: deferred Extremities exam: PRESENT: full ROM, +1 edema. ABSENT: calf tenderness, clubbing, pedal edema Neurological exam: PRESENT: alert, awake, oriented to person, oriented to place, oriented to time, oriented to situation, CN II-XII grossly intact, other - following all commands; attempting to mouth words around ET tube. ABSENT: motor sensory deficit Psychiatric exam: PRESENT: appropriate affect, normal mood. ABSENT: homicidal ideation, suicidal ideation Skin exam: PRESENT: dry, intact, warm. ABSENT: cyanosis, rash Results Laboratory Results: 03/24/18 04:50 03/24/18 04:50 03/23/18 03/23/18 03/23/18 12:00 12:00 12:00 WBC RBC Hgb Hct MCV MCH MCHC RDW Plt Count Seg Neutrophils % Lymphocytes % Monocytes % Eosinophils % Basophils % Absolute Neutrophils Absolute Lymphocytes Absolute Monocytes Absolute Eosinophils Absolute Basophils Carbonic Acid HCO3/H2CO3 Ratio ABG pH ABG pCO2 ABG pO2 ABG HCO3 ABG O2 Saturation ABG Base Excess FiO2 Sodium Potassium Chloride Carbon Dioxide Anion Gap BUN Creatinine Est GFR ( Amer) Est GFR (Non-Af Amer) Glucose Calcium Total Protein Fluid Glucose 131 Fluid Total Protein 1.4 Fluid Amylase 12 03/23/18 03/24/18 03/24/18 13:40 04:50 04:50 WBC 10.6 H RBC 3.23 L Hgb 9.0 L Hct 27.0 L MCV 84 MCH 27.7 MCHC 33.2 RDW 15.3 H Plt Count 399 Seg Neutrophils % Not Reportable Lymphocytes % Not Reportable Monocytes % Not Reportable Eosinophils % Not Reportable Basophils % Not Reportable Absolute Neutrophils Not Reportable Absolute Lymphocytes Not Reportable Absolute Monocytes Not Reportable Absolute Eosinophils Not Reportable Absolute Basophils Not Reportable Carbonic Acid 0.91 L HCO3/H2CO3 Ratio 26:1 ABG pH 7.52 H ABG pCO2 30.2 L ABG pO2 77.8 L ABG HCO3 23.9 ABG O2 Saturation 96.7 ABG Base Excess 1.3 FiO2 45% Sodium Potassium Chloride Carbon Dioxide Anion Gap BUN Creatinine Est GFR ( Amer) Est GFR (Non-Af Amer) Glucose Calcium Total Protein 3.5 L Fluid Glucose Fluid Total Protein Fluid Amylase 03/24/18 04:50 WBC RBC Hgb Hct MCV MCH MCHC RDW Plt Count Seg Neutrophils % Lymphocytes % Monocytes % Eosinophils % Basophils % Absolute Neutrophils Absolute Lymphocytes Absolute Monocytes Absolute Eosinophils Absolute Basophils Carbonic Acid HCO3/H2CO3 Ratio ABG pH ABG pCO2 ABG pO2 ABG HCO3 ABG O2 Saturation ABG Base Excess FiO2 Sodium 137.6 Potassium 4.3 Chloride 108 H Carbon Dioxide 25 Anion Gap 5 BUN 12 Creatinine 0.46 L Est GFR ( Amer) > 60 Est GFR (Non-Af Amer) > 60 Glucose 110 Calcium 7.6 L Total Protein Fluid Glucose Fluid Total Protein Fluid Amylase 03/16/18 03/18/18 03/18/18 05:06 04:45 19:10 CK-MB (CK-2) 1.10 Troponin I < 0.012 < 0.012 NT-Pro-B Natriuret Pep 513 03/18/18 03/20/18 19:50 12:05 CK-MB (CK-2) Troponin I NT-Pro-B Natriuret Pep 272 659 Impressions: KUB X-Ray 03/11/18 00:00 IMPRESSION: There are mildly dilated small bowel loops throughout the left abdomen, developing ileus or obstruction possible. Hepatobiliary Scan Nuclear Medicine 03/12/18 00:00 IMPRESSION: Bile leak in the gallbladder fossa. Catheter Placement 03/14/18 00:00 IMPRESSION: IMAGE(S) OBTAINED DURING PROCEDURE. Fluoroscopy 03/14/18 00:00 IMPRESSION: IMAGE(S) OBTAINED DURING PROCEDURE. Chest/Abdomen CTA 03/18/18 00:00 IMPRESSION: 1 . Status post cholecystectomy with pneumobilia. Upper abdominal ascites and pneumoperitoneum consistent with postsurgical change. 2. Bibasilar atelectasis with pleural effusions. Acute Abdomen Series 03/20/18 00:00 IMPRESSION: Postop ileus. Retroperitoneal Abscess Drainage 03/20/18 00:00 IMPRESSION: Successful CT-guided placement of drainage catheter. Abdomen/Pelvis CT 03/21/18 00:00 IMPRESSION: Interval endotracheal intubation. Interval worsening of now moderate right, small left pleural effusions and associated atelectasis or consolidation. IMPRESSION: 1. Postoperative findings of cholecystectomy with interval placement of a pigtail surgical drain within a fluid collection about the g allbladder fossa and anterior to the liver. There is near total interval resolution of this fluid collection. An additional surgical drain remains in the gallbladder fossa. 2. There is an interval increase in ascites elsewhere about the abdomen. 3. Anasarca. Chest CT 03/21/18 00:00 IMPRESSION: Interval endotracheal intubation. Interval worsening of now moderate right, small left pleural effusions and associated atelectasis or consolidation. IMPRESSION: 1. Postoperative findings of cholecystectomy with interval placement of a pigtail surgical drain within a fluid collection about the gallbladder fossa and anterior to the liver. There is near total interval resolution of this fluid collection. An additional surgical drain remains in the gallbladder fossa. 2. There is an interval increase in ascites elsewhere about the abdomen. 3. Anasarca. Thoracentesis Ultrasound 03/23/18 12:00 IMPRESSION: Small volume right-sided thoracentesis utilizing ultrasound guidance as detailed above. Chest X-Ray 03/24/18 06:00 IMPRESSION: No significant change. Assessment & Plan - Diagnosis (1) Sepsis Is this a current diagnosis for this admission?: Yes Plan: Sepsis secondary to intra-abdominal infection; leukocytosis improved (13.5-> 13.8-> 13.5-> 10.6), lactic acid nml, TMax last 24 hrs 100.8, last 48 hrs 101.9. Evidence by tachycardia, leukocyosis, fever (PSWK034.2), tachypnea (RR 24-40) No evidence of PNA, blood cultures negative at 5 days Repeat blood cultures negative at 4 days Urinalysis negative Now s/p percutaneous drain placement. Peritoneal fluid C/S growing klebsiella pneumoniae, enterococcus faecalis, yeast. AFB and Fungal smears pending. Sputum culture pending. Thoracic fluid AFB smear pending. Culture has no growth at 1 day. Continue Vancomycin and Meropenem, IV Diflucan. Infectious Disease is consulted; appreciate Dr. Vela's evaluation and recommendations. Discussed with surgery; plans to d/c Vancomycin tomorrow. Previously received Cipro pre-operatively before Ex Lap, postoperatively received Ancef and Flagyl 03/06-03/13 (2) Acute respiratory failure with hypoxia Is this a current diagnosis for this admission?: Yes Plan: Improved; possible extubation today. Secondary to poor respiratory effort/splinting stemming from postoperative pain resulting in atelectasis and bilateral pleural effusions; complicated by sepsis. Now requiring mechanical ventilation; ABG is improved. Bilateral pleural effusions on CTA; R>L. Continue to be present on CXR. CT chest demonstrates increase in pleural effusions, R>L with associated atelectasis ProBNP 659, echocardiogram is reassuring. LVEF 65%, normal diastolic function Thoracentesis; only 20 mL out. Continue supplemental oxygen, mechanical ventilation as needed to maintain oxygen saturations. Scheduled and as needed nebulizer treatments. Pulmonology is consulted; appreciate Dr. Booth's assistance. Ventilator management per his expertise. 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 Tadeo's assistance. Surgery is primary; appreciate Dr. Michaud's expertise with surgica l/oncological cases. (4) Hypotension Is this a current diagnosis for this admission?: Yes Plan: Resolved; blood pressures are now stable Off robert-Synephrine. Secondary to sepsis. Previously provided albumin and Hespan. Repeat albumin today w/ IV lasix for fluid mobilization. Continue gentle IVF and TPN for hypoalbuminemia. (5) Postoperative pain Is this a current diagnosis for this admission?: Yes Plan: Status post cholecystectomy and ERCP with JASKARAN and percutaneous drains in place. Postoperative pain may have contributed to her acute respiratory failure with hypoxia secondary to splinting. Continue providing analgesics as needed. Oxycodone per NG, IV tylenol or toradaol is available. Patient is currently sedated and mechanically ventilated. (6) Anxiety Is this a current diagnosis for this admission?: Yes Plan: Patient has a PMH of anxiety Family reports the patient has been significantly anxious while inpatient Was previously receiving 1 mg Ativan as needed, but nursing staff reported concerns that patient became very somnolent following administration. Ativan 1 mg via NG tube every 6 hours as needed. Versed 1 mg IV every 2 hours as needed. (7) Anemia Qualifiers: Other causes of anemia: chronic disease, other Is this a current diagnosis for this admission?: Yes Plan: Continues to trend down; 13.5-> 8.6-> 9.4-> 9.0 Now s/p 1 unit PRBC. No evidence of ongoing bleeding. Will monitor closely and provide additional PRBC for Hgb <8 (8) Full code status Is this a current diagnosis for this admission?: Yes - Time Time Spent with patient: 35 or more minutes Medications reviewed and adjusted accordingly: Yes Anticipated discharge: Home with Homehealth - Inpatient Certification Based on my medical assessment, after consideration of the patient's comorbidities, presenting symptoms, or acuity I expect that the services needed warrant INPATIENT care.: Yes I certify that my determination is in accordance with my understanding of Medicare's requirements for reasonable and necessary INPATIENT services [42 CFR 412.3e].: Yes Medical Necessity: Significant Comorbidiites Make Outpatient Treatment Too Risky, Need Close Monitoring Due to Risk of Patient Decompensation, Need For IV Fluids, Need For Continuous Telemetry Monitoring, Need for Nebulizer Therapy and Monitoring of Response, Need for Pain Control, Need for IV Antibiotics, Risk of Complication if Not Cared For in Hospital, Risk of Diagnosis Which Will Require Inpatient Eval/Care/Monitoring
[2018-03-24 18:39] LABS: ARTERIAL BLOOD BASE EXCESS 1.4 mmol/L; ARTERIAL BLOOD FIO2 50%; ARTERIAL BLOOD H2CO3 1.14 mmol/L (1.05-1.35); ARTERIAL BLOOD HCO3 25.3 mmol/L (20-24); ARTERIAL BLOOD PCO2 37.8 mmHg (35-45); ARTERIAL BLOOD PH 7.44 (7.35-7.45); ARTERIAL BLOOD PO2 48.6 mmHg (80-100); ARTERIAL BLOOD TOTAL CO2 26.5 mmol/L (21-25)
[2018-03-24 19:01] LABS: ARTERIAL BLOOD BASE EXCESS 1.1 mmol/L; ARTERIAL BLOOD HCO3 23.4 mmol/L (20-24); ARTERIAL BLOOD O2 SATURATION 98.1 % (94-98); ARTERIAL BLOOD PCO2 29.8 mmHg (35-45); ARTERIAL BLOOD PH 7.51 (7.35-7.45); ARTERIAL BLOOD PO2 98.4 mmHg (80-100); ARTERIAL BLOOD TOTAL CO2 24.3 mmol/L (21-25)
[2018-03-24 19:05] LABS: ARTERIAL BLOOD FIO2 50%
[2018-03-25] MEDS: MEROPENEM 1 GM in NORMAL SALINE 50 ML IV SCH ×3 (01:03→18:55)
[2018-03-25] MEDS: LEVALBUTEROL HCL NEB 0.63 MG/3 ML AMPUL NEB SCH ×4 (03:14→16:38)
[2018-03-25 04:44] LABS: ANION GAP 5 (5-19); BLOOD UREA NITROGEN 12 mg/dL (7-20); CARBON DIOXIDE 27 mmol/L (22-30); CHLORIDE 106 mmol/L (98-107); GLUCOSE 116 mg/dL (75-110); POTASSIUM 4.1 mmol/L (3.6-5.0); SODIUM 137.7 mmol/L (137-145)
[2018-03-25 05:01] LABS: ARTERIAL BLOOD BASE EXCESS 4.5 mmol/L; ARTERIAL BLOOD FIO2 35%; ARTERIAL BLOOD H2CO3 1.07 mmol/L (1.05-1.35); ARTERIAL BLOOD HCO3 27.6 mmol/L (20-24); ARTERIAL BLOOD O2 SATURATION 97.8 % (94-98); ARTERIAL BLOOD PCO2 35.6 mmHg (35-45); ARTERIAL BLOOD PH 7.51 (7.35-7.45); ARTERIAL BLOOD PO2 94.4 mmHg (80-100); ARTERIAL BLOOD TOTAL CO2 28.7 mmol/L (21-25)
[2018-03-25 05:12] LABS: HEMOGLOBIN 8.9 g/dL (12.0-15.5); MEAN CORPUSCULAR HEMOGLOBIN 27.6 pg (27.0-33.4); MEAN CORPUSCULAR HGB CONC 33.2 g/dL (32.0-36.0); MEAN CORPUSCULAR VOLUME 83 fl (80-97); PLATELET COUNT 440 10^3/uL (150-450); RED BLOOD COUNT 3.24 10^6/uL (3.72-5.28); RED CELL DISTRIBUTION WIDTH 15.1 % (11.5-14.0); WHITE BLOOD COUNT 11.7 10^3/uL (4.0-10.5)
[2018-03-25] MEDS: INSULIN REG, HUMAN 100 UNIT/ML 3 ML VIAL (PYX) SUBCUT SCH ×3 (05:13→19:01)
[2018-03-25] MEDS: HEPARIN SOD (PORCINE) 5,000 UNIT/ML 1 ML SYRINGE SUBCUT SCH ×3 (05:13→21:41)
[2018-03-25] MEDS: TIOTROPIUM BROMIDE DPI 5 CAP/KIT (18 MCG/CAP) IH SCH (05:14)
[2018-03-25 05:15] LABS: ABSOLUTE LYMPHOCYTES# (MANUAL) 1.8 10^3/uL (0.5-4.7); ABSOLUTE MONOCYTES # (MANUAL) 0.5 10^3/uL (0.1-1.4); BASOPHILS % (MANUAL) 0 % (0-2); EOSINOPHILS % (MANUAL) 4 % (0-6); LYMPHOCYTES % (MANUAL) 15 % (13-45); MONOCYTES % (MANUAL) 4 % (3-13); SEGMENTED NEUTROPHILS % (MAN) 77 % (42-78); TOTAL CELLS COUNTED 100
[2018-03-25 05:16] LABS: ANISOCYTOSIS SLIGHT; PLATELET COMMENT ADEQUATE; TOXIC VACUOLATION PRESENT
[2018-03-25] MEDS: KETOROLAC TROMETHAMINE INJ/PF 30 MG/1 ML SDV IV PRN ×2 (06:24→12:59)
[2018-03-25] MEDS: ACETAMINOPHEN 325 MG TABLET NG PRN ×2 (07:05→20:15)
--- NOTE | 2018-03-25 07:08 | RADIOLOGY REPORT (SQ) ---
EXAM DESCRIPTION: XR CHEST 1 VIEW COMPLETED DATE/TME: 03/25/2018 06:00 CLINICAL HISTORY: 63 years Female, sepsis COMPARISON: One day prior. NUMBER OF VIEWS/TECHNIQUE: 1/AP FINDINGS: Bilateral lower thoracic opacity/effusion. Mild central edema pattern.Likely adequate appearing enteric tube partially obscured. Upper abdominal clips.Adequate appearing right jugular central line. Right paracentral-mid abdominal catheter. Normal cardiac silhouette size. No pneumothorax. Stable bony thorax. IMPRESSION: No significant change.
--- NOTE | 2018-03-25 07:29 | PDOC PROGRESS REPORT ---
Subjective Progress Note for:: 03/25/18 Subjective:: Extubated now on BiPAP Reason For Visit: GALLBLADDER CANCER Physical Exam Vital Signs: Temp Pulse Resp BP Pulse Ox 101.1 F H 97 32 H 139/72 H 98 03/25/18 06:01 03/25/18 03:14 03/25/18 06:01 03/25/18 06:00 03/25/18 06:01 Intake & Output 03/24/18 03/25/18 03/26/18 06:59 06:59 06:59 Intake Total 2953 1724 Output Total 8339 63725 Balance 3485 -44145 Weight 103.4 kg 100.6 kg General appearance: PRESENT: no acute distress Mouth exam: PRESENT: dry mucosa Respiratory exam: PRESENT: clear to auscultation christian. ABSENT: rales, rhonchi, wheezes Cardiovascular exam: PRESENT: RRR. ABSENT: diastolic murmur, rubs, systolic murmur GI/Abdominal exam: PRESENT: normal bowel sounds, soft. ABSENT: distended, guarding, mass, organolmegaly, rebound, tenderness Rectal exam: PRESENT: deferred Neurological exam: PRESENT: other - Follows commands seems to understand Results Laboratory Results: 03/25/18 04:24 03/25/18 04:24 03/23/18 03/23/18 03/23/18 12:00 12:00 12:00 WBC RBC Hgb Hct MCV MCH MCHC RDW Plt Count Seg Neutrophils % Lymphocytes % Monocytes % Eosinophils % Basophils % Absolute Neutrophils Absolute Lymphocytes Absolute Monocytes Absolute Eosinophils Absolute Basophils Carbonic Acid HCO3/H2CO3 Ratio ABG pH ABG pCO2 ABG pO2 ABG HCO3 ABG O2 Saturation ABG Base Excess FiO2 Sodium Potassium Chloride Carbon Dioxide Anion Gap BUN Creatinine Est GFR ( Amer) Est GFR (Non-Af Amer) Glucose Calcium Total Protein Fluid Glucose 131 Fluid Total Protein 1.4 Fluid Amylase 12 03/23/18 03/24/18 03/24/18 13:40 18:13 18:52 WBC RBC Hgb Hct MCV MCH MCHC RDW Plt Count Seg Neutrophils % Lymphocytes % Monocytes % Eosinophils % Basophils % Absolute Neutrophils Absolute Lymphocytes Absolute Monocytes Absolute Eosinophils Absolute Basophils Carbonic Acid 1.14 0.90 L HCO3/H2CO3 Ratio 22:1 26:1 ABG pH 7.44 7.51 H ABG pCO2 37.8 29.8 L ABG pO2 48.6 L 98.4 ABG HCO3 25.3 H 23.4 ABG O2 Saturation 86.0 L 98.1 H ABG Base Excess 1.4 1.1 FiO2 50% 50% Sodium Potassium Chloride Carbon Dioxide Anion Gap BUN Creatinine Est GFR ( Amer) Est GFR (Non-Af Amer) Glucose Calcium Total Protein 3.5 L Fluid Glucose Fluid Total Protein Fluid Amylase 03/25/18 03/25/18 03/25/18 04:24 04:24 04:57 WBC 11.7 H RBC 3.24 L Hgb 8.9 L Hct 27.0 L MCV 83 MCH 27.6 MCHC 33.2 RDW 15.1 H Plt Count 440 Seg Neutrophils % Not Reportable Lymphocytes % Not Reportable Monocytes % Not Reportable Eosinophils % Not Reportable Basophils % Not Reportable Absolute Neutrophils Not Reportable Absolute Lymphocytes Not Reportable Absolute Monocytes Not Reportable Absolute Eosinophils Not Reportable Absolute Basophils Not Reportable Carbonic Acid 1.07 HCO3/H2CO3 Ratio 25:1 ABG pH 7.51 H ABG pCO2 35.6 ABG pO2 94.4 ABG HCO3 27.6 H ABG O2 Saturation 97.8 ABG Base Excess 4.5 FiO2 35% Sodium 137.7 Potassium 4.1 Chloride 106 Carbon Dioxide 27 Anion Gap 5 BUN 12 Creatinine 0.38 L Est GFR ( Amer) > 60 Est GFR (Non-Af Amer) > 60 Glucose 116 H Calcium 8.0 L Total Protein Fluid Glucose Fluid Total Protein Fluid Amylase 03/22/18 10:30 Tracheal Aspirate Gram Stain - Final 03/22/18 10:30 Tracheal Aspirate Sputum Culture - Final Yeast, Not Karol Albicans Greatly Reduced Normal Olivia 03/16/18 03/18/18 03/18/18 05:06 04:45 19:10 CK-MB (CK-2) 1.10 Troponin I < 0.012 < 0.012 NT-Pro-B Natriuret Pep 513 03/18/18 03/20/18 19:50 12:05 CK-MB (CK-2) Troponin I NT-Pro-B Natriuret Pep 530 476 Impressions: KUB X-Ray 03/11/18 00:00 IMPRESSION: There are mildly dilated small bowel loops throughout the left abdomen, developing ileus or obstruction possible. Hepatobiliary Scan Nuclear Medicine 03/12/18 00:00 IMPRESSION: Bile leak in the gallbladder fossa. Catheter Placement 03/14/18 00:00 IMPRESSION: IMAGE(S) OBTAINED DURING PROCEDURE. Fluoroscopy 03/14/18 00:00 IMPRESSION: IMAGE(S) OBTAINED DURING PROCEDURE. Chest/Abdomen CTA 03/18/18 00:00 IMPRESSION: 1 . Status post cholecystectomy with pneumobilia. Upper abdominal ascites and pneumoperitoneum consistent with postsurgical change. 2. Bibasilar atelectasis with pleural effusions. Acute Abdomen Series 03/20/18 00:00 IMPRESSION: Postop ileus. Retroperitoneal Abscess Drainage 03/20/18 00:00 IMPRESSION: Successful CT-guided placement of drainage catheter. Abdomen/Pelvis CT 03/21/18 00:00 IMPRESSION: Interval endotracheal intubation. Interval worsening of now moderate right, small left pleural effusions and associated atelectasis or conso lidation. IMPRESSION: 1. Postoperative findings of cholecystectomy with interval placement of a pigtail surgical drain within a fluid collection about the gallbladder fossa and anterior to the liver. There is near total interval resolution of this fluid collection. An additional surgical drain remains in the gallbladder fossa. 2. There is an interval increase in ascites elsewhere about the abdomen. 3. Anasarca. Chest CT 03/21/18 00:00 IMPRESSION: Interval endotracheal intubation. Interval worsening of now moderate right, small left pleural effusions and associated atelectasis or consolidation. IMPRESSION: 1. Postoperative findings of cholecystectomy with interval placement of a pigtail surgical drain within a fluid collection about the gallbladder fossa and anterior to the liver. There is near total interval resolution of this fluid collection. An additional surgical drain remains in the gallbladder fossa. 2. There is an interval increase in ascites elsewhere about the abdomen. 3. Anasarca. Thoracentesis Ultrasound 03/23/18 12:00 IMPRESSION: Small volume right-sided thoracentesis utilizing ultrasound justina alex as detailed above. Chest X-Ray 03/25/18 06:00 IMPRESSION: No significant change. Assessment & Plan - Diagnosis (1) Gallbladder cancer Is this a current diagnosis for this admission?: Yes Plan: Continue with monitoring, patient is doing better, hopefully will be downgraded soon, hopefully we can get physical therapy and soon to start working with her. - Time Time Spent with patient: 35 or more minutes
--- NOTE | 2018-03-25 08:19 | PDOC PROGRESS REPORT ---
Subjective Progress Note for:: 03/25/18 Reason For Visit: GALLBLADDER CANCER Physical Exam Vital Signs: Temp Pulse Resp BP Pulse Ox 101.1 F H 97 32 H 139/72 H 98 03/25/18 06:01 03/25/18 03:14 03/25/18 06:01 03/25/18 06:00 03/25/18 06:01 Intake & Output 03/24/18 03/25/18 03/26/18 06:59 06:59 06:59 Intake Total 2702 8640 Output Total 3285 49597 Balance 1456 -55300 Weight 103.4 kg 100.6 kg General appearance: PRESENT: cooperative, mild distress Head exam: PRESENT: atraumatic Eye exam: PRESENT: conjunctiva pink Mouth exam: PRESENT: dry mucosa Neck exam: PRESENT: full ROM Respiratory exam: PRESENT: decreased breath sounds, tachypnea Cardiovascular exam: PRESENT: RRR Pulses: PRESENT: normal radial pulses, normal femoral pulses Vascular exam: PRESENT: normal capillary refill GI/Abdominal exam: PRESENT: soft Rectal exam: PRESENT: deferred Extremities exam: PRESENT: full ROM, +2 edema Neurological exam: PRESENT: alert, awake Results Laboratory Results: 03/25/18 04:24 03/25/18 04:24 03/23/18 03/23/18 03/23/18 12:00 12:00 12:00 WBC RBC Hgb Hct MCV MCH MCHC RDW Plt Count Seg Neutrophils % Lymphocytes % Monocytes % Eosinophils % Basophils % Absolute Neutrophils Absolute Lymphocytes Absolute Monocytes Absolute Eosinophils Absolute Basophils Carbonic Acid HCO3/H2CO3 Ratio ABG pH ABG pCO2 ABG pO2 ABG HCO3 ABG O2 Saturation ABG Base Excess FiO2 Sodium Potassium Chloride Carbon Dioxide Anion Gap BUN Creatinine Est GFR ( Amer) Est GFR (Non-Af Amer) Glucose Calcium Total Protein Fluid Glucose 131 Fluid Total Protein 1.4 Fluid Amylase 12 03/23/18 03/24/18 03/24/18 13:40 18:13 18:52 WBC RBC Hgb Hct MCV MCH MCHC RDW Plt Count Seg Neutrophils % Lymphocytes % Monocytes % Eosinophils % Basophils % Absolute Neutrophils Absolute Lymphocytes Absolute Monocytes Absolute Eosinophils Absolute Basophils Carbonic Acid 1.14 0.90 L HCO3/H2CO3 Ratio 22:1 26:1 ABG pH 7.44 7.51 H ABG pCO2 37.8 29.8 L ABG pO2 48.6 L 98.4 ABG HCO3 25.3 H 23.4 ABG O2 Saturation 86.0 L 98.1 H ABG Base Excess 1.4 1.1 FiO2 50% 50% Sodium Potassium Chloride Carbon Dioxide Anion Gap BUN Creatinine Est GFR ( Amer) Est GFR (Non-Af Amer) Glucose Calcium Total Protein 3.5 L Fluid Glucose Fluid Total Protein Fluid Amylase 03/25/18 03/25/18 03/25/18 04:24 04:24 04:57 WBC 11.7 H RBC 3.24 L Hgb 8.9 L Hct 27.0 L MCV 83 MCH 27.6 MCHC 33.2 RDW 15.1 H Plt Count 440 Seg Neutrophils % Not Reportable Lymphocytes % Not Reportable Monocytes % Not Reportable Eosinophils % Not Reportable Basophils % Not Reportable Absolute Neutrophils Not Reportable Absolute Lymphocytes Not Reportable Absolute Monocytes Not Reportable Absolute Eosinophils Not Reportable Absolute Basophils Not Reportable Carbonic Acid 1.07 HCO3/H2CO3 Ratio 25:1 ABG pH 7.51 H ABG pCO2 35.6 ABG pO2 94.4 ABG HCO3 27.6 H ABG O2 Saturation 97.8 ABG Base Excess 4.5 FiO2 35% Sodium 137.7 Potassium 4.1 Chloride 106 Carbon Dioxide 27 Anion Gap 5 BUN 12 Creatinine 0.38 L Est GFR ( Amer) > 60 Est GFR (Non-Af Amer) > 60 Glucose 116 H Calcium 8.0 L Total Protein Fluid Glucose Fluid Total Protein Fluid Amylase 03/22/18 10:30 Tracheal Aspirate Gram Stain - Final 03/22/18 10:30 Tracheal Aspirate Sputum Culture - Final Yeast, Not Karol Albicans Greatly Reduced Normal Olivia 03/16/18 03/18/18 03/18/18 05:06 04:45 19:10 CK-MB (CK-2) 1.10 Troponin I < 0.012 < 0.012 NT-Pro-B Natriuret Pep 513 03/18/18 03/20/18 19:50 12:05 CK-MB (CK-2) Troponin I NT-Pro-B Natriuret Pep 272 417 Impressions: KUB X-Ray 03/11/18 00:00 IMPRESSION: There are mildly dilated small bowel loops throughout the left abdomen, developing ileus or obstruction possible. Hepatobiliary Scan Nuclear Medicine 03/12/18 00:00 IMPRESSION: Bile leak in the gallbladder fossa. Catheter Placement 03/14/18 00:00 IMPRESSION: IMAGE(S) OBTAINED DURING PROCEDURE. Fluoroscopy 03/14/18 00:00 IMPRESSION: IMAGE(S) OBTAINED DURING PROCEDURE. Chest/Abdomen CTA 03/18/18 00:00 IMPRESSION: 1 . Status post cholecystectomy with pneumobilia. Upper abdominal ascites and pneumoperitoneum consistent with postsurgical change. 2. Bibasilar atelectasis with pleural effusions. Acute Abdomen Series 03/20/18 00:00 IMPRESSION: Postop ileus. Retroperitoneal Abscess Drainage 03/20/18 00:00 IMPRESSION: Successful CT-guided placement of drainage catheter. Abdomen/Pelvis CT 03/21/18 00:00 IMPRESSION: Interval endotracheal intubation. Interval worsening of now moderate right, small left pleural effusions and associated atelectasis or consolidation. IMPRESSION: 1. Postoperative findings of cholecystectomy with interval placement of a pigtail surgical drain within a fluid collection about the gallbladder fossa and anterior to the liver. There is near total interval resolution of this fluid collection. An additional surgical drain remains in the gallbladder fossa. 2. There is an interval increase in ascites elsewhere about the abdomen. 3. Anasarca. Chest CT 03/21/18 00:00 IMPRESSION: Interval endotracheal intubation. Interval worsening of now mo derate right, small left pleural effusions and associated atelectasis or consolidation. IMPRESSION: 1. Postoperative findings of cholecystectomy with interval placement of a pigtail surgical drain within a fluid collection about the gallbladder fossa and anterior to the liver. There is near total interval resolution of this fluid collection. An additional surgical drain remains in the gallbladder fossa. 2. There is an interval increase in ascites elsewhere about the abdomen. 3. Anasarca. Thoracentesis Ultrasound 03/23/18 12:00 IMPRESSION: Small volume right-sided thoracentesis utilizing ultrasound guidance as detailed above. Chest X-Ray 03/25/18 06:00 IMPRESSION: No significant change. Assessment & Plan - Diagnosis (1) Acute respiratory failure with hypoxia Is this a current diagnosis for this admission?: Yes (3) Bile leak, postoperative Is this a current diagnosis for this admission?: Yes (4) Full code status Is this a current diagnosis for this admission?: Yes - Plan Summary Plan Summary: pt extubated yesterday now on bipap dayday well some c/o epigastric pain per drain with min op some debby drainage approx 450 appears mostly ascitic cxr still iwth rt effusion no sig change had good response to lasix and albumin yesterdy plan- trial off bipap consider dc ng tube if swallowing adequately repeat lasix and albumin today
[2018-03-25] MEDS: OXYCODONE-ACETAMINOPHEN 5-325 MG TABLET NG PRN ×3 (08:49→22:34)
[2018-03-25] MEDS ORDERED: FUROSEMIDE INJ/PF 40 MG/4 ML SDV IV ONE (09:00)
[2018-03-25] MEDS: FAMOTIDINE INJ/PF 20 MG/2 ML SDV IV SCH ×2 (10:22→21:41)
[2018-03-25] MEDS: FLUCONAZOLE 200 MG/NS RTU 200 MG/100 ML RTUPB IV SCH (10:23)
[2018-03-25] MEDS: ALBUMIN HUMAN 12.5 GM/50 ML RTUINJ IV SCH ×4 (10:23→15:24)
[2018-03-25] MEDS: AMINO ACIDS 5%/D25W 1,000 ML IV PRN (13:26)
[2018-03-25] MEDS: LORAZEPAM 1 MG TABLET NG PRN (13:26)
[2018-03-25 13:44] LABS: APPEARANCE,URINE CLEAR; BILIRUBIN,URINE NEGATIVE (NEGATIVE); COLOR,URINE YELLOW; GLUCOSE, URINE NEGATIVE (NEGATIVE); KETONES,URINE NEGATIVE (NEGATIVE); LEUKOCYTE ESTERASE,URINE NEGATIVE (NEGATIVE); NITRITE,URINE NEGATIVE (NEGATIVE); PROTEIN,URINE NEGATIVE (NEGATIVE); URINE SPECIFIC GRAVITY 1.006; UROBILINOGEN,URINE NEGATIVE mg/dL (<2.0)
[2018-03-25 14:07] LABS: VANCOMYCIN,TROUGH 10.2 ug/mL (5.0-20.0)
[2018-03-25] MEDS ORDERED: NICOTINE 7 MG/24 HR PATCH.TD24 TD PRN (14:49)
--- NOTE | 2018-03-25 14:54 | PDOC PROGRESS REPORT ---
Subjective Progress Note for:: 03/25/18 Subjective:: 63 y.o. F with HTN, asthma and COPD admitted to [facility] 03/01/2018 for ch olecystectomy to remove cancerous gallbladder. Within days of surgery there was a large amount of output noted in her JASKARAN drain. The patient underwent an ERCP on 03/14/2018 with CBD stent placement. Within 24hrs she began developing signs of sepsis and the hospitalist service was consulted for medical management. Follow up CT Abd/Pelvis showed small amount of free air in RUQ and pneumobilia, small a mount of free fluid surrounding the liver and in RUQ, and a small R pleural effusion. The patient was seen on morning rounds while her was present. She was extubated yesterday (03/24/18 @1700) and was able to toelrate ~ 20 minutes off BiPAP this morning before becoming fatigued. She is fully awake today, A&Ox4, follows all directions. She has been weaned off of Junito-Synephrine and is maintaining adequate blood pressures. Currently on IV vancomycin and meropenem for sepsis secondary to bile leak following radical cholecystectomy and partial hepatectomy for metastatic gallbladder cancer. Percutaneous drain placed by interventional radiology. Cultures growing Klebsiella pneumoniae, enterococcus, yeast. Santos catheter is in place; improved urinary output. Patient w/ third spacing; recieved IV albumin and Hespan, now on TPN. Repeating Albumin and Lasix today again today. Patient denies questions at this time; all of her husbands questions were addressed. Nursing would like to start tube feeds; will clear with Surgery. Reason For Visit: GALLBLADDER CANCER Physical Exam Vital Signs: Temp Pulse Resp BP Pulse Ox 98.4 F 94 19 133/79 H 94 03/25/18 12:01 03/25/18 12:00 03/25/18 12:01 03/25/18 12:00 03/25/18 12:01 Intake & Output 03/24/18 03/25/18 03/26/18 06:59 06:59 06:59 Intake Total 2952 3234 1100 Output Total 1498 55711 740 Balance 6916 -65818 976 Weight 103.4 kg 100.6 kg General appearance: PRESENT: no acute distress, obese, well-developed, well- nourished Head exam: PRESENT: atraumatic, normocephalic Eye exam: PRESENT: conjunctiva pink, EOMI, PERRLA. ABSENT: scleral icterus Ear exam: PRESENT: normal external ear exam Mouth exam: PRESENT: moist, tongue midline, other - NG tube Neck exam: ABSENT: carotid bruit, JVD, lymphadenopathy, thyromegaly Respiratory exam: PRESENT: decreased breath sounds - Bibasilar, prolonged expiratory phas, symmetrical, tachypnea, other - BiPAP. ABSENT: rales, rhonchi, wheezes Cardiovascular exam: PRESENT: RRR. ABSENT: diastolic murmur, rubs, systolic murmur Pulses: PRESENT: normal dorsalis pedis pul Vascular exam: PRESENT: normal capillary refill GI/Abdominal exam: PRESENT: normal bowel sounds, soft. ABSENT: distended, guarding, mass, organolmegaly, rebound, tenderness Rectal exam: PRESENT: deferred Extremities exam: PRESENT: full ROM, +1 edema - Slight improvement today. ABSENT: calf tenderness, clubbing, pedal edema Neurological exam: PRESENT: alert, awake, oriented to person, oriented to place, oriented to time, oriented to situation, CN II-XII grossly intact, other - Fatigued. ABSENT: motor sensory deficit Psychiatric exam: PRESENT: appropriate affect, normal mood. ABSENT: homicidal ideation, suicidal ideation Skin exam: PRESENT: dry, intact, warm. ABSENT: cyanosis, rash Results Laboratory Results: 03/25/18 04:24 03/25/18 04:24 03/23/18 03/23/18 03/23/18 12:00 12:00 12:00 WBC RBC Hgb Hct MCV MCH MCHC RDW Plt Count Seg Neutrophils % Lymphocytes % Monocytes % Eosinophils % Basophils % Absolute Neutrophils Absolute Lymphocytes Absolute Monocytes Absolute Eosinophils Absolute Basophils Carbonic Acid HCO3/H2CO3 Ratio ABG pH ABG pCO2 ABG pO2 ABG HCO3 ABG O2 Saturation ABG Base Excess FiO2 Sodium Potassium Chloride Carbon Dioxide Anion Gap BUN Creatinine Est GFR ( Amer) Est GFR (Non-Af Amer) Glucose Calcium Urine Color Urine Appearance Urine pH Ur Specific [place] Urine Protein Urine Glucose (UA) Urine Ketones Urine Blood Urine Nitrite Ur Leukocyte Esterase Urine WBC (Auto) Urine RBC (Auto) Fluid Glucose 131 Fluid Total Protein 1.4 Fluid Amylase 12 03/24/18 03/24/18 03/25/18 18:13 18:52 04:24 WBC RBC Hgb Hct MCV MCH MCHC RDW Plt Count Seg Neutrophils % Lymphocytes % Monocytes % Eosinophils % Basophils % Absolute Neutrophils Absolute Lymphocytes Absolute Monocytes Absolute Eosinophils Absolute Basophils Carbonic Acid 1.14 0.90 L HCO3/H2CO3 Ratio 22:1 26:1 ABG pH 7.44 7.51 H ABG pCO2 37.8 29.8 L ABG pO2 48.6 L 98.4 ABG HCO3 25.3 H 23.4 ABG O2 Saturation 86.0 L 98.1 H ABG Base Excess 1.4 1.1 FiO2 50% 50% Sodium 137.7 Potassium 4.1 Chloride 106 Carbon Dioxide 27 Anion Gap 5 BUN 12 Creatinine 0.38 L Est GFR ( Amer) > 60 Est GFR (Non-Af Amer) > 60 Glucose 116 H Calcium 8.0 L Urine Color Urine Appearance Urine pH Ur Specific [place] Urine Protein Urine Glucose (UA) Urine Ketones Urine Blood Urine Nitrite Ur Leukocyte Esterase Urine WBC (Auto) Urine RBC (Auto) Fluid Glucose Fluid Total Protein Fluid Amylase 03/25/18 03/25/18 03/25/18 04:24 04:57 13:13 WBC 11.7 H RBC 3.24 L Hgb 8.9 L Hct 27.0 L MCV 83 MCH 27.6 MCHC 33.2 RDW 15.1 H Plt Count 440 Seg Neutrophils % Not Reportable Lymphocytes % Not Reportable Monocytes % Not Reportable Eosinophils % Not Reportable Basophils % Not Reportable Absolute Neutrophils Not Reportable Absolute Lymphocytes Not Reportable Absolute Monocytes Not Reportable Absolute Eosinophils Not Reportable Absolute Basophils Not Reportable Carbonic Acid 1.07 HCO3/H2CO3 Ratio 25:1 ABG pH 7.51 H ABG pCO2 35.6 ABG pO2 94.4 ABG HCO3 27.6 H ABG O2 Saturation 97.8 ABG Base Excess 4.5 FiO2 35% Sodium Potassium Chloride Carbon Dioxide Anion Gap BUN Creatinine Est GFR ( Amer) Est GFR (Non-Af Amer) Glucose Calcium Urine Color YELLOW Urine Appearance CLEAR Urine pH 8.0 Ur Specific [place] 1.006 Urine Protein NEGATIVE Urine Glucose (UA) NEGATIVE Urine Ketones NEGATIVE Urine Blood MODERATE H Urine Nitrite NEGATIVE Ur Leukocyte Esterase NEGATIVE Urine WBC (Auto) 1 Urine RBC (Auto) 0 Fluid Glucose Fluid Total Protein Fluid Amylase 03/20/18 12:58 Blood Blood Culture - Final NO GROWTH IN 5 DAYS 03/20/18 12:50 Blood Blood Culture - Final NO GROWTH IN 5 DAYS 03/22/18 10:30 Tracheal Aspirate Gram Stain - Final 03/22/18 10:30 Tracheal Aspirate Sputum Culture - Final Yeast, Not Karol Albicans Greatly Reduced Normal Olivia 03/16/18 03/18/18 03/18/18 05:06 04:45 19:10 CK-MB (CK-2) 1.10 Troponin I < 0.012 < 0.012 NT-Pro-B Natriuret Pep 513 03/18/18 03/20/18 19:50 12:05 CK-MB (CK-2) Troponin I NT-Pro-B Natriuret Pep 272 659 Impressions: KUB X-Ray 03/11/18 00:00 IMPRESSION: There are mildly dilated small bowel loops throughout the left abdomen, developing ileus or obstruction possible. Hepatobiliary Scan Nuclear Medicine 03/12/18 00:00 IMPRESSION: Bile leak in the gallbladder fossa. Catheter Placement 03/14/18 00:00 IMPRESSION: IMAGE(S) OBTAINED DURING PROCEDURE. Fluoroscopy 03/14/18 00:00 IMPRESSION: IMAGE(S) OBTAINED DURING PROCEDURE. Chest/Abdomen CTA 03/18/18 00:00 IMPRESSION: 1 . Status post cholecystectomy with pneumobilia. Upper abdominal ascites and pneumoperitoneum consistent with postsurgical change. 2. Bibasilar atelectasis with pleural effusions. Acute Abdomen Series 03/20/18 00:00 IMPRESSION: Postop ileus. Retroperitoneal Abscess Drainage 03/20/18 00:00 IMPRESSION: Successful CT-guided placement of drainage catheter. Abdomen/Pelvis CT 03/21/18 00:00 IMPRESSION: Interval endotracheal intubation. Interval worsening of now moderate right, small left pleural effusions and associated atelectasis or consolidation. IMPRESSION: 1. Postoperative findings of cholecystectomy with interval placement of a pigtail surgical drain within a fluid collection about the gallbladder fossa and anterior to the liver. There is near total interval resolution of this fluid collection. An additional surgical drain remains in the gallbladder fossa. 2. There is an interval increase in ascites elsewhere about the abdomen. 3. Anasarca. Chest CT 03/21/18 00:00 IMPRESSION: Interval endotracheal intubation. Interval worsening of now moderate right, small left pleural effusions and associated atelectasis or consolidation. IMPRESSION: 1. Postoperative findings of cholecystectomy with interval placement of a pigtail surgical drain within a fluid collection about the gallbladder fossa and anterior to the liver. There is near total interval resolution of this fluid collection. An additional surgical drain remains in the gallbladder fossa. 2. There is an interval increase in ascites elsewhere about the abdomen. 3. Anasarca. Thoracentesis Ultrasound 03/23/18 12:00 IMPRESSION: Small volume right-sided thoracentesis utilizing ultrasound guidance as detailed above. Chest X-Ray 03/25/18 06:00 IMPRESSION: No significant change. Assessment & Plan - Diagnosis (1) Sepsis Is this a current diagnosis for this admission?: Yes Plan: Sepsis secondary to intra-abdominal infection; leukocytosis improved (13.5-> 13.8-> 13.5-> 10.6-> )11.7, lactic acid nml, TMax last 48 hrs 102. Evidence by tachycardia, leukocyosis, fever (EPYV763.2), tachypnea (RR 24-40) No evidence of PNA. Blood cultures negative at 5 days Repeat blood cultures negative at 5 days Urinalysis negative; repeat today is nml Now s/p percutaneous drain placement. Peritoneal fluid C/S growing klebsiella pneumoniae, enterococcus faecalis, yeast. AFB and Fungal smears pending. Sputum culture shows yeast. Thoracic fluid AFB smear pending. Culture has no growth at 2 day. Continue Meropenem, IV Diflucan. Vancomycin discontinued today. Infectious Disease is consulted; appreciate Dr. Vela's evaluation and recommendations. Previously received Cipro pre-operatively before Ex Lap, postoperatively received Ancef and Flagyl 03/06-03/13 (2) Acute respiratory failure with hypoxia Is this a current diagnosis for this admission?: Yes Plan: Improved; extubated yesterday. Tolerating BiPAP; able to come off for short periods. Secondary to poor respiratory effort/splinting stemming from postoperative pain resulting in atelectasis and bilateral pleural effusions; complicated by sepsis. Now requiring mechanical ventilation; ABG is improved. Bilateral pleural effusions on CTA; R>L. Continue to be present on CXR. CT chest demonstrates increase in pleural effusions, R>L with associated atelectasis ProBNP 659, echocardiogram is reassuring. LVEF 65%, normal diastolic function Thoracentesis; only 20 mL out. Continue supplemental oxygen, mechanical ventilation as needed to maintain oxygen saturations. Scheduled and as needed nebulizer treatments. Will reduce frequency of scheduled nebulizers. Resume Spiriva and Serevent. Pulmonology is consulted; appreciate Dr. Booth's assistance. 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 Tadeo's assistance. Surgery is primary; appreciate Dr. Michaud's expertise with surgical/oncological cases. (4) Postoperative pain Is this a current diagnosis for this admission?: Yes Plan: Status post cholecystectomy and ERCP with JASKARAN and percutaneous drains in place. Postoperative pain may have contributed to her acute respiratory failure with hypoxia secondary to splinting. Continue providing analgesics as needed. Oxycodone per NG, IV tylenol or toradaol is available. Lidoderm patches, repositioning. (5) Anxiety Is this a current diagnosis for this admission?: Yes Plan: Patient has a PMH of anxiety Family reports the patient has been significantly anxious while inpatient Ativan 1 mg via NG tube every 4 hours as needed. BuSpar three times daily. (6) Anemia Qualifiers: Other causes of anemia: chronic disease, other Is this a current diagnosis for this admission?: Yes Plan: Initial trend down, now stable; 13.5-> 8.6-> 9.4-> 9.0-> 8.9 Now s/p 1 unit PRBC. No evidence of ongoing bleeding. Will monitor closely and provide additional PRBC for Hgb <8 (7) COPD (chronic obstructive pulmonary disease) Qualifiers: COPD type: unspecified COPD Qualified Code(s): J44.9 - Chronic obstructive pulmonary disease, unspecified Is this a current diagnosis for this admission?: Yes Plan: Without exacerbation at this time. Management as above. (8) Tobacco abuse Is this a current diagnosis for this admission?: Yes Plan: Nicotine replacement therapy is offered. (9) Hypotension Is this a current diagnosis for this admission?: Yes Plan: Resolved; blood pressures are now stable Off junito-Synephrine. Secondary to sepsis. Previously provided albumin and Hespan. Repeat albumin again today w/ IV lasix for fluid mobilization. Continue TPN for hypoalbuminemia. (10) Full code status Is this a current diagnosis for this admission?: Yes - Time Time Spent with patient: 25-34 minutes Medications reviewed and adjusted accordingly: Yes Anticipated discharge: Home with Homehealth - Inpatient Certification Based on my medical assessment, after consideration of the patient's comorbidities, presenting symptoms, or acuity I expect that the services needed warrant INPATIENT care.: Yes I certify that my determination is in accordance with my understanding of Medicare's requirements for reasonable and necessary INPATIENT services [42 CFR 412.3e].: Yes Medical Necessity: Significant Comorbidiites Make Outpatient Treatment Too Risky, Need Close Monitoring Due to Risk of Patient Decompensation, Need For IV Fluids, Need For Continuous Telemetry Monitoring
[2018-03-25] MEDS ORDERED: FUROSEMIDE INJ/PF 40 MG/4 ML SDV ONE (15:18)
[2018-03-25] MEDS: SALMETEROL XINAFOATE DISKUS 50 MCG/1 DOSE 28 DOSE IH SCH ×2 (15:24→21:42)
[2018-03-25] MEDS: LIDOCAINE 5% (700 MG) TRANSDERMAL ADH..PATCH TP SCH (15:25)
[2018-03-25] MEDS: BUSPIRONE HCL 10 MG TABLET PO SCH ×2 (15:26→21:41)
--- NOTE | 2018-03-25 18:24 | PDOC CONSULTATION ---
Consultation Consult Date: 03/25/18 Attending physician:: MARLENI DESHPANDE Consult reason:: Sepsis/respiratory failure History of Present Illness Admission Date/PCP: 03/06/18 06:35 JACKIE DUMONT MD History of Present Illness: CARMEN RUSSO is a 63 year old female,63-year-old female presented for a bdominal pain was subsequently taken to the OR where she was found to have what appeared to be metastatic adenocarcinoma of the gallbladder initial margins were not clean so she returned to the OR and subsequent resection showed improved clean margins. She is currently in the ICU intubated and sedated and on vasopressor agents. Past Medical History Cardiac Medical History: Reports: Hypertension - ON MEDS Denies: Coronary Artery Disease, Myocardial Infarction Pulmonary Medical History: Reports: Asthma, Bronchitis - HX OF , Chronic Obstructive Pulmonary Disease (COPD) - INHALER, NEBULIZER, Pneumonia - 08/21 Neurological Medical History: Reports: Seizures - A CHILD X 1, NO MEDS Endocrine Medical History: Reports: Diabetes Mellitus Type 2 - borderline Malignancy Medical History: Reports: Other - Gallbladder cancer Musculoskeltal Medical History: Denies: Arthritis Hematology: Denies: Anemia Past Surgical History Past Surgical History: Reports: Orthopedic Surgery - left foot/ titanium plates placed, Tonsillectomy, Other - Radical cholecystectomy, liver resection, periportal lymphadenectomy Denies: Hysterectomy Social History Information Source: [facility] Records Lives with: Spouse/Significant other Smoking Status: Former Smoker Cigarettes Packs Per Day: 1 Number of Years Smokin Frequency of Alcohol Use: None Drugs: None Hx Prescription Drug Abuse: No - Advance Directive Resuscitation Status: Full Code Family History Parental Family History Reviewed: No Children Family History Reviewed: No Sibling(s) Family History Reviewed.: No Medication/Allergy Home Medications: Albuterol Sulfate [Albuterol Sulfate 2.5mg/3 mL] 2.5 mg IH Q6HP PRN 01/14/12 Amlodipine Besylate [Norvasc 5 mg Tablet] 5 mg PO DAILY 01/14/12 Budesonide/Formoterol Fumarate [Symbicort HFA 160-4.5 mcg Inhaler 6 gm] 2 puff IH Q12 01/14/12 Irbesartan/Hydrochlorothiazide [Avalide 300-12.5 Mg Tablet] 1 each PO DAILY 01/14/12 Fenofibric Acid (Choline) [Fenofibric Acid] 135 mg PO WSUPPER 01/29/19 Hydrocodone Bit/Acetaminophen [Hydrocodon-Acetaminophn 10-325] 1 each PO Q6HP PRN MDD FILLED 03/01 FOR 7 DAYS 03/06/18 Metformin HCl [Metformin HCl ER] 500 mg PO BIDBS 03/06/18 Tiotropium [place] [Spiriva Respimat] 2 puff IH DAILY 03/06/18 Allergies/Adverse Reactions: Penicillins Adverse Reaction (Severe, Verified 03/22/18 15:15) WHEEZE Review of Systems ROS unobtainable: Due to endotracheal tube Physical Exam Vital Signs: Temp Pulse Resp BP Pulse Ox 99.7 F 73 23 H 106/61 93 03/19/18 08:00 03/19/18 08:00 03/19/18 08:00 03/19/18 08:00 03/19/18 08:00 Intake & Output 03/18/18 03/19/18 03/20/18 06:59 06:59 06:59 Intake Total 2072 3640 11 Output Total 3120 790 110 Balance -1048 2850 -99 Weight 97.6 kg 97.6 kg General appearance: PRESENT: no acute distress, disheveled, morbidly obese. ABSENT: cooperative Head exam: PRESENT: atraumatic, normocephalic Eye exam: PRESENT: conjunctiva pale, scleral icterus. ABSENT: nystagmus Mouth exam: PRESENT: neck supple, tongue midline, other - ET tube Neck exam: ABSENT: carotid bruit, JVD, lymphadenopathy, thyromegaly, tracheal deviation, tracheostomy Respiratory exam: PRESENT: decreased breath sounds, prolonged expiratory phas, rales, rhonchi, unlabored. ABSENT: retraction Cardiovascular exam: PRESENT: RRR, +S1, +S2 Pulses: PRESENT: normal radial pulses GI/Abdominal exam: PRESENT: other - Status post surgery abdominal dressing drains wound VAC Gentrourinary exam: PRESENT: indwelling catheter Extremities exam: ABSENT: clubbing, joint swelling, pedal edema Musculoskeletal exam: ABSENT: deformity, dislocation Neurological exam: ABSENT: altered, awake Skin exam: PRESENT: dry, warm Results Laboratory Results: 03/19/18 06:53 03/19/18 06:53 03/18/18 03/18/18 03/18/18 17:10 17:58 18:37 WBC Cancelled 4.8 RBC Cancelled 4.39 Hgb Cancelled 12.4 D Hct Cancelled 36.4 MCV Cancelled 83 MCH Cancelled 28.2 MCHC Cancelled 34.0 RDW Cancelled 14.6 H Plt Count Cancelled 632 H Seg Neutrophils % Lymphocytes % Monocytes % Eosinophils % Basophils % Absolute Neutrophils Absolute Lymphocytes Absolute Monocytes Absolute Eosinophils Absolute Basophils Carbonic Acid 1.11 HCO3/H2CO3 Ratio 26:1 ABG pH 7.51 H ABG pCO2 37.0 ABG pO2 56.7 L ABG HCO3 29.1 H ABG O2 Saturation 92.2 L ABG Base Excess 6.0 FiO2 4L Sodium Potassium Chloride Carbon Dioxide Anion Gap BUN Creatinine Est GFR ( Amer) Est GFR (Non-Af Amer) Glucose Calcium Total Bilirubin AST ALT Alkaline Phosphatase Total Protein Albumin Amylase Lipase 03/18/18 03/18/18 03/18/18 19:10 19:45 19:50 WBC RBC Hgb Hct MCV MCH MCHC RDW Plt Count Seg Neutrophils % Lymphocytes % Monocytes % Eosinophils % Basophils % Absolute Neutrophils Absolute Lymphocytes Absolute Monocytes Absolute Eosinophils Absolute Basophils Carbonic Acid 1.01 L HCO3/H2CO3 Ratio 26:1 ABG pH 7.52 H ABG pCO2 33.7 L ABG pO2 73.8 L ABG HCO3 27.1 H ABG O2 Saturation 96.3 ABG Base Excess 4.6 FiO2 100% Sodium 133.9 L 133.8 L Potassium 4.1 D 4.1 Chloride 97 L 97 L Carbon Dioxide 29 29 Anion Gap 8 8 BUN 8 8 Creatinine 0.53 0.56 Est GFR ( Amer) > 60 > 60 Est GFR (Non-Af Amer) > 60 > 60 Glucose 134 H 129 H Calcium 8.2 L 8.0 L Total Bilirubin 0.8 0.9 AST 22 20 ALT 44 39 Alkaline Phosphatase 171 H 170 H Total Protein 4.6 L 4.7 L Albumin 2.4 L 2.4 L Amylase Lipase 03/18/18 03/18/18 03/19/18 19:50 22:14 06:53 WBC 18.2 H D RBC 3.77 Hgb 10.4 L Hct 31.5 L MCV 83 MCH 27.5 MCHC 32.9 RDW 14.7 H Plt Count 604 H Seg Neutrophils % Not Reportable Lymphocytes % Not Reportable Monocytes % Not Reportable Eosinophils % Not Reportable Basophils % Not Reportable Absolute Neutrophils Not Reportable Absolute Lymphocytes Not Reportable Absolute Monocytes Not Reportable Absolute Eosinophils Not Reportable Absolute Basophils Not Reportable Carbonic Acid 1.16 HCO3/H2CO3 Ratio 25:1 ABG pH 7.50 H ABG pCO2 38.7 ABG pO2 104.3 H ABG HCO3 29.4 H ABG O2 Saturation 98.2 H ABG Base Excess 5.8 FiO2 50% Sodium Potassium Chloride Carbon Dioxide Anion Gap BUN Creatinine Est GFR ( Amer) Est GFR (Non-Af Amer) Glucose Calcium Total Bilirubin AST ALT Alkaline Phosphatase Total Protein Albumin Amylase < 30 L Lipase 53.9 03/19/18 06:53 WBC RBC Hgb Hct MCV MCH MCHC RDW Plt Count Seg Neutrophils % Lymphocytes % Monocytes % Eosinophils % Basophils % Absolute Neutrophils Absolute Lymphocytes Absolute Monocytes Absolute Eosinophils Absolute Basophils Carbonic Acid HCO3/H2CO3 Ratio ABG pH ABG pCO2 ABG pO2 ABG HCO3 ABG O2 Saturation ABG Base Excess FiO2 Sodium 136.0 L Potassium 3.9 Chloride 101 Carbon Dioxide 27 Anion Gap 8 BUN 7 Creatinine 0.47 L Est GFR ( Amer) > 60 Est GFR (Non-Af Amer) > 60 Glucose 134 H Calcium 7.6 L Total Bilirubin 0.7 AST 15 ALT 34 Alkaline Phosphatase 115 Total Protein 4.2 L Albumin 2.2 L Amylase Lipase 03/16/18 03/18/18 03/18/18 05:06 04:45 19:10 CK-MB (CK-2) 1.10 Troponin I < 0.012 < 0.012 NT-Pro-B Natriuret Pep 513 03/18/18 19:50 CK-MB (CK-2) Troponin I NT-Pro-B Natriuret Pep 272 Impressions: KUB X-Ray 03/11/18 00:00 IMPRESSION: There are mildly dilated small bowel loops throughout the left abdomen, developing ileus or obstruction possible. Hepatobiliary Scan Nuclear Medicine 03/12/18 00:00 IMPRESSION: Bile leak in the gallbladder fossa. Catheter Placement 03/14/18 00:00 IMPRESSION: IMAGE(S) OBTAINED DURING PROCEDURE. Fluoroscopy 03/14/18 00:00 IMPRESSION: IMAGE(S) OBTAINED DURING PROCEDURE. Abdomen/Pelvis CT 03/15/18 00:00 IMPRESSION: Post surgical changes, as above with a small amount of free intraperitoneal air in the upper abdomen and right upper quadrant. There is also a small amount of free fluid in this region as well as pneumobilia. Biliary stent in place. A drainage catheter projects over the right mid abdomen. Correlate with surgical history. Small right pleural effusion with adjacent consolidative change. Nonobstructing right renal calculi. Diffuse anasarca. Fatty infiltrative change to the liver. TECHNICAL DOCUMENTATION: Quality ID # 436: Final reports with documentation of one or more dose reduction techniques (e.g., Automated exposure control, adjustment of the mA and/or kV according to patient size, use of iterative reconstruction technique) copyright 2010 [employer]- All Rights Reserved Chest X-Ray 03/18/18 00:00 IMPRESSION: Interval intubation and placement of an enteric tube. Other findings are stable copyright 2010 [employer]- All Rights Reserved Chest/Abdomen CTA 03/18/18 00:00 IMPRESSION: 1 . Status post cholecystectomy with pneumobilia. Upper abdominal ascites and pneumoperitoneum consistent with postsurgical change. 2. Bibasilar atelectasis with pleural effusions. Assessment & Plan - Diagnosis (1) Acute respiratory failure with hypoxia Is this a current diagnosis for this admission?: Yes Plan: Oxygenate and ventilate as necessary (2) COPD (chronic obstructive pulmonary disease) Qualifiers: COPD type: unspecified COPD Qualified Code(s): J44.9 - Chronic obstructive pulmonary disease, unspecified Is this a current diagnosis for this admission?: Yes Plan: Generic Name Dose Route Start Last Admin Trade Name Freq PRN Reason Stop Dose Admin Nicotine 1 each 03/25/18 14:49 Nicoderm 7 Mg/24 Hr Transdermal Patch TD 04/24/18 14:48 DAILYP PRN WITHDRAWAL SYMPTOMS Tiotropium [place] 1 cap 03/12/18 06:00 03/25/18 05:14 Spiriva Handihaler 5 Cap/Kit (18 Mcg/Cap) IH 04/11/18 05:59 1 cap Q6AM JULIAN Albuterol 2.5 mg 03/17/18 09:20 03/24/18 12:03 Ventolin 0.083% Neb 2.5 Mg/3 Ml Ampul NEB 04/16/18 09:19 2.5 mg RTQ6HP PRN SOB Levalbuterol HCl 0.63 mg 03/25/18 16:00 03/25/18 16:38 Xopenex Neb 0.63 Mg/3 Ml Ampul NEB 04/24/18 15:59 0.63 mg RTQ8 JULIAN (3) Gallbladder cancer Is this a current diagnosis for this admission?: Yes Plan: As per surgery and oncology (4) Sepsis Is this a current diagnosis for this admission?: Yes Plan: 03/22/18 10:30 Gram Stain - Final Tracheal Aspirate Sputum Culture - Final Yeast, Not Karol Albicans Greatly Reduced Normal Olivia 03/20/18 12:54 Gram Stain - Final Abdominal Fluid Body Fluid Culture - Final Enterococcus Faecalis(Group D) Klebsiella Pneumoniae Yeast, Not Karol Albicans No Anaerobic Organisms 03/20/18 09:50 Gram Stain - Final Abdominal Fluid Body Fluid Culture - Final Klebsiella Pneumoniae Enterococcus Faecalis(Group D) Yeast, Not Karol Albicans No Anaerobic Organisms (5) Tobacco abuse Is this a current diagnosis for this admission?: Yes Plan: Stop smoking transdermal nicotine - Time Total Critical Time (Minutes): 55
--- NOTE | 2018-03-25 18:32 | PDOC PROGRESS REPORT ---
Subjective Progress Note for:: 03/20/18 Subjective:: Intubated and sedated Reason For Visit: GALLBLADDER CANCER Physical Exam Vital Signs: Temp Pulse Resp BP Pulse Ox 99.9 F 85 18 95/60 L 97 03/20/18 08:00 03/20/18 08:30 03/20/18 08:30 03/20/18 08:00 03/20/18 08:30 Intake & Output 03/19/18 03/20/18 03/21/18 06:59 06:59 06:59 Intake Total 3640 1681 63 Output Total 790 1645 35 Balance 2850 36 28 Weight 97.6 kg 97.6 kg General appearance: PRESENT: no acute distress, disheveled, morbidly obese. ABSENT: cooperative Head exam: PRESENT: atraumatic, normocephalic Eye exam: PRESENT: conjunctiva pale, scleral icterus. ABSENT: EOMI, nystagmus Mouth exam: PRESENT: dry mucosa, neck supple, tongue midline, other - ET tube Neck exam: ABSENT: carotid bruit, JVD, lymphadenopathy, thyromegaly, tracheal deviation, tracheostomy Respiratory exam: PRESENT: decreased breath sounds, prolonged expiratory phas, rales, rhonchi, unlabored. ABSENT: retraction, stridor Cardiovascular exam: PRESENT: RRR, +S1, +S2, tachycardia Pulses: PRESENT: normal radial pulses - Status post surgery wound VAC drains GI/Abdominal exam: PRESENT: other - Wound VAC multiple drains Gentrourinary exam: PRESENT: indwelling catheter Extremities exam: ABSENT: clubbing, joint swelling, pedal edema Musculoskeletal exam: ABSENT: ambulatory, deformity, dislocation Neurological exam: ABSENT: awake Skin exam: PRESENT: dry, warm Results Laboratory Results: 03/20/18 05:30 03/20/18 05:30 03/20/18 03/20/18 03/20/18 05:30 05:30 05:30 WBC 13.5 H RBC 3.39 L Hgb 9.5 L Hct 28.5 L MCV 84 MCH 28.1 MCHC 33.5 RDW 14.7 H Plt Count 412 Seg Neutrophils % 91.5 H Lymphocytes % 6.4 L Monocytes % 1.8 L Eosinophils % 0.2 Basophils % 0.1 Absolute Neutrophils 12.3 H Absolute Lymphocytes 0.9 Absolute Monocytes 0.2 Absolute Eosinophils 0.0 Absolute Basophils 0.0 Carbonic Acid 1.06 HCO3/H2CO3 Ratio 25:1 ABG pH 7.51 H ABG pCO2 35.2 ABG pO2 68.4 L ABG HCO3 27.3 H ABG O2 Saturation 95.2 ABG Base Excess 4.2 FiO2 45 Sodium 135.9 L Potassium 3.0 L* Chloride 102 Carbon Dioxide 27 Anion Gap 7 BUN 10 Creatinine 0.50 L Est GFR ( Amer) > 60 Est GFR (Non-Af Amer) > 60 Glucose 107 Calcium 7.4 L Phosphorus 2.6 Magnesium 1.5 L Total Bilirubin 0.4 AST 12 L ALT 32 Alkaline Phosphatase 80 Total Protein 3.5 L Albumin 1.7 L Prealbumin Triglycerides 03/20/18 05:30 WBC RBC Hgb Hct MCV MCH MCHC RDW Plt Count Seg Neutrophils % Lymphocytes % Monocytes % Eosinophils % Basophils % Absolute Neutrophils Absolute Lymphocytes Absolute Monocytes Absolute Eosinophils Absolute Basophils Carbonic Acid HCO3/H2CO3 Ratio ABG pH ABG pCO2 ABG pO2 ABG HCO3 ABG O2 Saturation ABG Base Excess FiO2 Sodium Potassium Chloride Carbon Dioxide Anion Gap BUN Creatinine Est GFR ( Amer) Est GFR (Non-Af Amer) Glucose Calcium Phosphorus Magnesium Total Bilirubin AST ALT Alkaline Phosphatase Total Protein Albumin Prealbumin 3.4 L Triglycerides 90 03/16/18 03/18/18 03/18/18 05:06 04:45 19:10 CK-MB (CK-2) 1.10 Troponin I < 0.012 < 0.012 NT-Pro-B Natriuret Pep 513 03/18/18 19:50 CK-MB (CK-2) Troponin I NT-Pro-B Natriuret Pep 272 Impressions: KUB X-Ray 03/11/18 00:00 IMPRESSION: There are mildly dilated small bowel loops throughout the left abdomen, developing ileus or obstruction possible. Hepatobiliary Scan Nuclear Medicine 03/12/18 00:00 IMPRESSION: Bile leak in the gallbladder fossa. Catheter Placement 03/14/18 00:00 IMPRESSION: IMAGE(S) OBTAINED DURING PROCEDURE. Fluoroscopy 03/14/18 00:00 IMPRESSION: IMAGE(S) OBTAINED DURING PROCEDURE. Abdomen/Pelvis CT 03/15/18 00:00 IMPRESSION: Post surgical changes, as above with a small amount of free intraperitoneal air in the upper abdomen and right upper quadrant. There is also a small amount of free fluid in this region as well as pneumobilia. Biliary stent in place. A drainage catheter projects over the right mid abdomen. Correlate with surgical history. Small right pleural effusion with adjacent consolidative change. Nonobstructing right renal calculi. Diffuse anasarca. Fatty infiltrative change to the liver. TECHNICAL DOCUMENTATION: Quality ID # 436: Final reports with documentation of one or more dose reduction techniques (e.g., Automated exposure control, adjustment of the mA and/or kV according to patient size, use of iterative reconstruction technique) copyright 2010 [employer]- All Rights Reserved Chest X-Ray 03/18/18 00:00 IMPRESSION: Interval intubation and placement of an enteric tube. Other findings are stable copyright 2010 [employer]- All Rights Reserved Chest/Abdomen CTA 03/18/18 00:00 IMPRESSION: 1 . Status post cholecystectomy with pneumobilia. Upper abdominal ascites and pneumoperitoneum consistent with postsurgical change. 2. Bibasilar atelectasis with pleural effusions. Assessment & Plan - Diagnosis (1) Acute respiratory failure with hypoxia Is this a current diagnosis for this admission?: Yes Plan: Oxygenate and ventilate as necessary (2) COPD (chronic obstructive pulmonary disease) Qualifiers: COPD type: unspecified COPD Qualified Code(s): J44.9 - Chronic obstructive pulmonary disease, unspecified Is this a current diagnosis for this admission?: Yes Plan: Generic Name Dose Route Start Last Admin Trade Name Freq PRN Reason Stop Dose Admin Nicotine 1 each 03/25/18 14:49 Nicoderm 7 Mg/24 Hr Transdermal Patch TD 04/24/18 14:48 DAILYP PRN WITHDRAWAL SYMPTOMS Tiotropium [place] 1 cap 03/12/18 06:00 03/25/18 05:14 Spiriva Handihaler 5 Cap/Kit (18 Mcg/Cap) IH 04/11/18 05:59 1 cap Q6AM JULIAN Albuterol 2.5 mg 03/17/18 09:20 03/24/18 12:03 Ventolin 0.083% Neb 2.5 Mg/3 Ml Ampul NEB 04/16/18 09:19 2.5 mg RTQ6HP PRN SOB Levalbuterol HCl 0.63 mg 03/25/18 16:00 03/25/18 16:38 Xopenex Neb 0.63 Mg/3 Ml Ampul NEB 04/24/18 15:59 0.63 mg RTQ8 JULIAN (3) Gallbladder cancer Is this a current diagnosis for this admission?: Yes Plan: As per surgery and oncology (4) Sepsis Is this a current diagnosis for this admission?: Yes Plan: 03/22/18 10:30 Gram Stain - Final Tracheal Aspirate Sputum Culture - Final Yeast, Not Karol Albicans Greatly Reduced Normal Olivia 03/20/18 12:54 Gram Stain - Final Abdominal Fluid Body Fluid Culture - Final Enterococcus Faecalis(Group D) Klebsiella Pneumoniae Yeast, Not Karol Albicans No Anaerobic Organisms 03/20/18 09:50 Gram Stain - Final Abdominal Fluid Body Fluid Culture - Final Klebsiella Pneumoniae Enterococcus Faecalis(Group D) Yeast, Not Karol Albicans No Anaerobic Organisms (5) Tobacco abuse Is this a current diagnosis for this admission?: Yes Plan: Stop smoking transdermal nicotine - Time Total Critical Time (Minutes): 55
--- NOTE | 2018-03-25 18:40 | PDOC PROGRESS REPORT ---
Subjective Progress Note for:: 03/21/18 Subjective:: Intubated and sedated Reason For Visit: GALLBLADDER CANCER Physical Exam Vital Signs: Temp Pulse Resp BP Pulse Ox 99.1 F 88 24 H 106/66 96 03/21/18 08:00 03/21/18 09:03 03/21/18 09:03 03/21/18 08:00 03/21/18 09:03 Intake & Output 03/20/18 03/21/18 03/22/18 06:59 06:59 06:59 Intake Total 2081 3650 382 Output Total 1645 2647 500 Balance 436 1003 -118 Weight 97.6 kg 97.6 kg General appearance: PRESENT: no acute distress, disheveled, morbidly obese. ABSENT: cooperative Head exam: PRESENT: atraumatic, normocephalic Eye exam: PRESENT: conjunctiva pale. ABSENT: nystagmus Mouth exam: PRESENT: dry mucosa, neck supple, tongue midline, other - et tube Neck exam: ABSENT: carotid bruit, JVD, lymphadenopathy, thyromegaly, tracheal deviation, tracheostomy Respiratory exam: PRESENT: decreased breath sounds, prolonged expiratory phas, rales, rhonchi. ABSENT: retraction Cardiovascular exam: PRESENT: RRR, +S1, +S2, tachycardia Pulses: PRESENT: normal radial pulses GI/Abdominal exam: PRESENT: other - Wound VAC multiple drains Gentrourinary exam: PRESENT: indwelling catheter Extremities exam: ABSENT: clubbing, joint swelling, pedal edema Musculoskeletal exam: ABSENT: ambulatory, deformity, dislocation Neurological exam: ABSENT: awake Skin exam: PRESENT: dry, warm Results Laboratory Results: 03/21/18 07:38 03/21/18 05:00 03/20/18 03/20/18 03/20/18 09:50 12:05 16:55 WBC RBC Hgb Hct MCV MCH MCHC RDW Plt Count Seg Neutrophils % Lymphocytes % Monocytes % Eosinophils % Basophils % Absolute Neutrophils Absolute Lymphocytes Absolute Monocytes Absolute Eosinophils Absolute Basophils Carbonic Acid HCO3/H2CO3 Ratio ABG pH ABG pCO2 ABG pO2 ABG HCO3 ABG O2 Saturation ABG Base Excess FiO2 Sodium 134.8 L Potassium 3.4 L Chloride 103 Carbon Dioxide 26 Anion Gap 6 BUN 11 Creatinine 0.53 Est GFR ( Amer) > 60 Est GFR (Non-Af Amer) > 60 Glucose 85 Lactic Acid 0.7 Calcium 7.4 L Phosphorus Magnesium Total Bilirubin AST ALT Alkaline Phosphatase Total Protein Albumin Prealbumin Fluid Type PERITONEAL Fluid Source ASCITES Fluid Color GREEN Fluid Appearance TURBID Fluid Viscosity LIQUID Fluid WBC 0 Fluid RBC 0 03/20/18 03/21/18 03/21/18 16:55 05:00 05:00 WBC RBC Hgb Hct MCV MCH MCHC RDW Plt Count Seg Neutrophils % Lymphocytes % Monocytes % Eosinophils % Basophils % Absolute Neutrophils Absolute Lymphocytes Absolute Monocytes Absolute Eosinophils Absolute Basophils Carbonic Acid 1.01 L HCO3/H2CO3 Ratio 26:1 ABG pH 7.51 H ABG pCO2 33.5 L ABG pO2 57.2 L ABG HCO3 26.4 H ABG O2 Saturation 92.5 L ABG Base Excess 3.5 FiO2 45% Sodium 134.8 L Potassium 3.0 L* Chloride 104 Carbon Dioxide 25 Anion Gap 6 BUN 10 Creatinine 0.51 L Est GFR ( Amer) > 60 Est GFR (Non-Af Amer) > 60 Glucose 129 H Lactic Acid Calcium 6.7 L* Phosphorus 2.3 L Magnesium 2.0 Total Bilirubin 0.3 AST 10 L ALT 18 Alkaline Phosphatase 59 Total Protein 3.0 L Albumin 1.4 L Prealbumin 3.1 L Fluid Type Fluid Source Fluid Color Fluid Appearance Fluid Viscosity Fluid WBC Fluid RBC 03/21/18 07:38 WBC 13.8 H RBC 3.08 L Hgb 8.6 L Hct 25.9 L MCV 84 MCH 28.0 MCHC 33.3 RDW 14.9 H Plt Count 355 Seg Neutrophils % 87.0 H Lymphocytes % 8.9 L Monocytes % 2.0 L Eosinophils % 1.6 Basophils % 0.5 Absolute Neutrophils 12.0 H Absolute Lymphocytes 1.2 Absolute Monocytes 0.3 Absolute Eosinophils 0.2 Absolute Basophils 0.1 Carbonic Acid HCO3/H2CO3 Ratio ABG pH ABG pCO2 ABG pO2 ABG HCO3 ABG O2 Saturation ABG Base Excess FiO2 Sodium Potassium Chloride Carbon Dioxide Anion Gap BUN Creatinine Est GFR ( Amer) Est GFR (Non-Af Amer) Glucose Lactic Acid Calcium Phosphorus Magnesium Total Bilirubin AST ALT Alkaline Phosphatase Total Protein Albumin Prealbumin Fluid Type Fluid Source Fluid Color Fluid Appearance Fluid Viscosity Fluid WBC Fluid RBC 03/16/18 03/18/18 03/18/18 05:06 04:45 19:10 CK-MB (CK-2) 1.10 Troponin I < 0.012 < 0.012 NT-Pro-B Natriuret Pep 513 03/18/18 02 19:50 12:05 CK-MB (CK-2) Troponin I NT-Pro-B Natriuret Pep 272 659 Impressions: KUB X-Ray 03/11/18 00:00 IMPRESSION: There are mildly dilated small bowel loops throughout the left abdomen, developing ileus or obstruction possible. Hepatobiliary Scan Nuclear Medicine 03/12/18 00:00 IMPRESSION: Bile leak in the gallbladder fossa. Catheter Placement 03/14/18 00:00 IMPRESSION: IMAGE(S) OBTAINED DURING PROCEDURE. Fluoroscopy 03/14/18 00:00 IMPRESSION: IMAGE(S) OBTAINED DURING PROCEDURE. Abdomen/Pelvis CT 03/15/18 00:00 IMPRESSION: Post surgical changes, as above with a small amount of free intraperitoneal air in the upper abdomen and right upper quadrant. There is also a small amount of free fluid in this region as well as pneumobilia. Biliary stent in place. A drainage catheter projects over the right mid abdomen. Correlate with surgical history. Small right pleural effusion with adjacent consolidative change. Nonobstructing right renal calculi. Diffuse anasarca. Fatty infiltrative change to the liver. TECHNICAL DOCUMENTATION: Quality ID # [id number]: Final reports with documentation of one or more dose reduction techniques (e.g., Automated exposure control, adjustment of the mA and/or kV according to patient size, use of iterative reconstruction technique) copyright 2011 [employer]- All Rights Reserved Chest/Abdomen CTA 03/18/18 00:00 IMPRESSION: 1 . Status post cholecystectomy with pneumobilia. Upper abdominal ascites and pneumoperitoneum consistent with postsurgical change. 2. Bibasilar atelectasis with pleural effusions. Acute Abdomen Series 03/20/18 00:00 IMPRESSION: Postop ileus. Retroperitoneal Abscess Drainage 03/20/18 00:00 IMPRESSION: Successful CT-guided placement of drainage catheter. Chest X-Ray 03/21/18 06:00 IMPRESSION: No significant change. Assessment & Plan - Diagnosis (1) Acute respiratory failure with hypoxia Is this a current diagnosis for this admission?: Yes Plan: Oxygenate and ventilate as necessary (2) COPD (chronic obstructive pulmonary disease) Qualifiers: COPD type: unspecified COPD Qualified Code(s): J44.9 - Chronic obstructive pulmonary disease, unspecified Is this a current diagnosis for this admission?: Yes Plan: Generic Name Dose Route Start Last Admin Trade Name Freq PRN Reason Stop Dose Admin Nicotine 1 each 03/25/18 14:49 Nicoderm 7 Mg/24 Hr Transdermal Patch TD 04/24/18 14:48 DAILYP PRN WITHDRAWAL SYMPTOMS Tiotropium [place] 1 cap 03/12/18 06:00 03/25/18 05:14 Spiriva Handihaler 5 Cap/Kit (18 Mcg/Cap) IH 04/11/18 05:59 1 cap Q6AM JULIAN Albuterol 2.5 mg 03/17/18 09:20 03/24/18 12:03 Ventolin 0.083% Neb 2.5 Mg/3 Ml Ampul NEB 04/16/18 09:19 2.5 mg [id number] PRN SOB Levalbuterol HCl 0.63 mg 03/25/18 16:00 03/25/18 16:38 Xopenex Neb 0.63 Mg/3 Ml Ampul NEB 04/24/18 15:59 0.63 mg RTQ8 JULIAN (3) Gallbladder cancer Is this a current diagnosis for this admission?: Yes Plan: As per surgery and oncology (4) Sepsis Is this a current diagnosis for this admission?: Yes Plan: 03/22/18 10:30 Gram Stain - Final Tracheal Aspirate Sputum Culture - Final Yeast, Not Karol Albicans Greatly Reduced Normal Olivia 03/20/18 12:54 Gram Stain - Final Abdominal Fluid Body Fluid Culture - Final Enterococcus Faecalis(Group D) Klebsiella Pneumoniae Yeast, Not Karol Albicans No Anaerobic Organisms 03/20/18 09:50 Gram Stain - Final Abdominal Fluid Body Fluid Culture - Final Klebsiella Pneumoniae Enterococcus Faecalis(Group D) Yeast, Not Karol Albicans No Anaerobic Organisms (5) Tobacco abuse Is this a current diagnosis for this admission?: Yes Plan: Stop smoking transdermal nicotine - Time Total Critical Time (Minutes): 45
--- NOTE | 2018-03-25 18:44 | PDOC PROGRESS REPORT ---
Subjective Progress Note for:: 03/22/18 Subjective:: c/w bilat effusions + bacterial peritonitis strongly consider thoracentesis Reason For Visit: GALLBLADDER CANCER Physical Exam Vital Signs: Temp Pulse Resp BP Pulse Ox 100.6 F H 92 22 H 108/58 L 93 03/22/18 10:46 03/22/18 10:00 03/22/18 10:46 03/22/18 10:46 03/22/18 10:46 Intake & Output 03/21/18 03/22/18 03/23/18 06:59 06:59 06:59 Intake Total 3650 5517 Output Total 2647 2755 200 Balance 1003 2762 -200 Weight 97.6 kg General appearance: PRESENT: no acute distress, disheveled, morbidly obese. ABSENT: cooperative Head exam: PRESENT: atraumatic, normocephalic Eye exam: ABSENT: conjunctiva pale, nystagmus Mouth exam: PRESENT: dry mucosa, neck supple, tongue midline, other - ET tube Neck exam: ABSENT: carotid bruit, JVD, lymphadenopathy, thyromegaly, tracheal deviation, tracheostomy Respiratory exam: PRESENT: decreased breath sounds, prolonged expiratory phas, rales, rhonchi, unlabored. ABSENT: retraction, stridor Cardiovascular exam: PRESENT: RRR, +S1, +S2, tachycardia Pulses: PRESENT: normal radial pulses GI/Abdominal exam: PRESENT: other - Wound VAC multiple drains Gentrourinary exam: PRESENT: indwelling catheter Extremities exam: ABSENT: clubbing, joint swelling, pedal edema Musculoskeletal exam: ABSENT: ambulatory, deformity Neurological exam: ABSENT: awake Skin exam: PRESENT: dry, warm Results Laboratory Results: 03/22/18 10:00 03/22/18 05:10 03/21/18 03/21/18 03/22/18 12:10 12:15 05:10 WBC RBC Hgb Hct MCV MCH MCHC RDW Plt Count Carbonic Acid 1.07 HCO3/H2CO3 Ratio 25:1 ABG pH 7.50 H ABG pCO2 35.7 ABG pO2 58.1 L ABG HCO3 27.1 H ABG O2 Saturation 92.5 L ABG Base Excess 3.8 FiO2 45% Sodium 135.0 L Potassium 4.0 D Chloride 105 Carbon Dioxide 26 Anion Gap 4 L BUN 10 Creatinine 0.46 L Est GFR ( Amer) > 60 Est GFR (Non-Af Amer) > 60 Glucose 122 H Calcium 7.0 L* Phosphorus Total Bilirubin AST ALT Alkaline Phosphatase Total Protein Albumin Prealbumin Blood Type A POSITIVE Antibody Screen NEGATIVE 03/22/18 03/22/18 05:10 10:00 WBC 13.5 H RBC 3.08 L Hgb 8.6 L Hct 25.6 L MCV 83 MCH 27.9 MCHC 33.5 RDW 15.2 H Plt Count 344 Carbonic Acid HCO3/H2CO3 Ratio ABG pH ABG pCO2 ABG pO2 ABG HCO3 ABG O2 Saturation ABG Base Excess FiO2 Sodium 134.8 L Potassium 3.5 L Chloride 105 Carbon Dioxide 26 Anion Gap 4 L BUN 13 Creatinine 0.42 L Est GFR ( Amer) > 60 Est GFR (Non-Af Amer) > 60 Glucose 130 H Calcium 7.1 L Phosphorus 3.0 Total Bilirubin 0.3 AST 13 L ALT 15 Alkaline Phosphatase 60 Total Protein 3.1 L Albumin 1.4 L Prealbumin 4.1 L Blood Type Antibody Screen 03/16/18 09:37 Blood Blood Culture - Final NO GROWTH IN 5 DAYS 03/16/18 09:13 Blood Blood Culture - Final NO GROWTH IN 5 DAYS 03/16/18 03/18/18 03/18/18 05:06 04:45 19:10 CK-MB (CK-2) 1.10 Troponin I < 0.012 < 0.012 NT-Pro-B Natriuret Pep 513 03/18/18 03/20/18 19:50 12:05 CK-MB (CK-2) Troponin I NT-Pro-B Natriuret Pep 272 659 Impressions: KUB X-Ray 03/11/18 00:00 IMPRESSION: There are mildly dilated small bowel loops throughout the left abdomen, developing ileus or obstruction possible. Hepatobiliary Scan Nuclear Medicine 03/12/18 00:00 IMPRESSION: Bile leak in the gallbladder fossa. Catheter Placement 03/14/18 00:00 IMPRESSION: IMAGE(S) OBTAINED DURING PROCEDURE. Fluoroscopy 03/14/18 00:00 IMPRESSION: IMAGE(S) OBTAINED DURING PROCEDURE. Chest/Abdomen CTA 03/18/18 00:00 IMPRESSION: 1 . Status post cholecystectomy with pneumobilia. Upper abdominal ascites and pneumoperitoneum consistent with postsurgical change. 2. Bibasilar atelectasis with pleural effusions. Acute Abdomen Series 03/20/18 00:00 IMPRESSION: Postop ileus. Retroperitoneal Abscess Drainage 03/20/18 00:00 IMPRESSION: Successful CT-guided placement of drainage catheter. Abdomen/Pelvis CT 03/21/18 00:00 IMPRESSION: Interval endotracheal intubation. Interval worsening of now moderate right, small left pleural effusions and associated atelectasis or consolidation. IMPRESSION: 1. Postoperative findings of cholecystectomy with interval placement of a pigtail surgical drain within a fluid collection about the gallbladder fossa and anterior to the liver. There is near total interval resolution of this fluid collection. An additional surgical drain remains in the gallbladder fossa. 2. There is an interval increase in ascites elsewhere about the abdomen. 3. Anasarca. Chest CT 03/21/18 00:00 IMPRESSION: Interval endotracheal intubation. Interval worsening of now moderate right, small left pleural effusions and associated atelectasis or consolidation. IMPRESSION: 1. Postoperative findings of cholecystectomy with interval placement of a pigtail surgical drain within a fluid collection about the gallbladder fossa and anterior to the liver. There is near total interval resolution of this fluid collection. An additional surgical drain remains in the gallbladder fossa. 2. There is an interval increase in ascites elsewhere about the abdomen. 3. Anasarca. Chest X-Ray 03/22/18 06:00 IMPRESSION: No significant change. Assessment & Plan - Diagnosis (1) Acute respiratory failure with hypoxia Is this a current diagnosis for this admission?: Yes Plan: Oxygenate and ventilate as necessary (2) COPD (chronic obstructive pulmonary disease) Qualifiers: COPD type: unspecified COPD Qualified Code(s): J44.9 - Chronic obstructive pulmonary disease, unspecified Is this a current diagnosis for this admission?: Yes Plan: Generic Name Dose Route Start Last Admin Trade Name Freq PRN Reason Stop Dose Admin Nicotine 1 each 03/25/18 14:49 Nicoderm 7 Mg/24 Hr Transdermal Patch TD 04/24/18 14:48 DAILYP PRN WITHDRAWAL SYMPTOMS Tiotropium [place] 1 cap 03/12/18 06:00 03/25/18 05:14 Spiriva Handihaler 5 Cap/Kit (18 Mcg/Cap) IH 04/11/18 05:59 1 cap Q6AM JULIAN Albuterol 2.5 mg 03/17/18 09:20 03/24/18 12:03 Ventolin 0.083% Neb 2.5 Mg/3 Ml Ampul NEB 04/16/18 09:19 2.5 mg RTQ6HP PRN SOB Levalbuterol HCl 0.63 mg 03/25/18 16:00 03/25/18 16:38 Xopenex Neb 0.63 Mg/3 Ml Ampul NEB 04/24/18 15:59 0.63 mg RTQ8 JULIAN (3) Gallbladder cancer Is this a current diagnosis for this admission?: Yes Plan: As per surgery and oncology (4) Sepsis Is this a current diagnosis for this admission?: Yes Plan: 03/22/18 10:30 Gram Stain - Final Tracheal Aspirate Sputum Culture - Final Yeast, Not Karol Albicans Greatly Reduced Normal Olivia 03/20/18 12:54 Gram Stain - Final Abdominal Fluid Body Fluid Culture - Final Enterococcus Faecalis(Group D) Klebsiella Pneumoniae Yeast, Not Karol Albicans No Anaerobic Organisms 03/20/18 09:50 Gram Stain - Final Abdominal Fluid Body Fluid Culture - Final Klebsiella Pneumoniae Enterococcus Faecalis(Group D) Yeast, Not Karol Albicans No Anaerobic Organisms (5) Tobacco abuse Is this a current diagnosis for this admission?: Yes Plan: Stop smoking transdermal nicotine - Time Total Critical Time (Minutes): 50
--- NOTE | 2018-03-25 18:49 | PDOC PROGRESS REPORT ---
Subjective Progress Note for:: 03/23/18 Subjective:: c/w bilat effusions + bacterial peritonitis strongly consider thoracentesis Reason For Visit: GALLBLADDER CANCER Physical Exam Vital Signs: Temp Pulse Resp BP Pulse Ox 100.0 F 96 24 H 137/65 H 98 03/24/18 12:00 03/24/18 12:03 03/24/18 12:03 03/24/18 12:00 03/24/18 12:03 Intake & Output 03/23/18 03/24/18 03/25/18 06:59 06:59 06:59 Intake Total 2250 2952 0 Output Total 2235 1495 1000 Balance 15 1457 -1000 Weight 102.3 kg 103.4 kg General appearance: PRESENT: no acute distress, disheveled, morbidly obese. ABSENT: cooperative Head exam: PRESENT: atraumatic. ABSENT: normocephalic Eye exam: PRESENT: conjunctiva pale. ABSENT: nystagmus Mouth exam: PRESENT: dry mucosa, neck supple, tongue midline, other - ET tube Neck exam: ABSENT: carotid bruit, full ROM, JVD, lymphadenopathy, meningismus, tenderness, thyromegaly, tracheal deviation, tracheostomy, other Respiratory exam: PRESENT: decreased breath sounds, prolonged expiratory phas, rales, rhonchi, unlabored. ABSENT: retraction Cardiovascular exam: PRESENT: RRR, +S1, +S2 Pulses: PRESENT: normal radial pulses GI/Abdominal exam: PRESENT: other - Wound VAC multiple drains Gentrourinary exam: PRESENT: indwelling catheter Extremities exam: ABSENT: calf tenderness, clubbing, joint swelling, pedal edema Musculoskeletal exam: ABSENT: deformity, dislocation Neurological exam: ABSENT: awake Skin exam: PRESENT: warm Results Laboratory Results: 03/24/18 04:50 03/24/18 04:50 03/23/18 03/24/18 03/24/18 13:40 04:50 04:50 WBC 10.6 H RBC 3.23 L Hgb 9.0 L Hct 27.0 L MCV 84 MCH 27.7 MCHC 33.2 RDW 15.3 H Plt Count 399 Seg Neutrophils % Not Reportable Lymphocytes % Not Reportable Monocytes % Not Reportable Eosinophils % Not Reportable Basophils % Not Reportable Absolute Neutrophils Not Reportable Absolute Lymphocytes Not Reportable Absolute Monocytes Not Reportable Absolute Eosinophils Not Reportable Absolute Basophils Not Reportable Carbonic Acid 0.91 L HCO3/H2CO3 Ratio 26:1 ABG pH 7.52 H ABG pCO2 30.2 L ABG pO2 77.8 L ABG HCO3 23.9 ABG O2 Saturation 96.7 ABG Base Excess 1.3 FiO2 45% Sodium Potassium Chloride Carbon Dioxide Anion Gap BUN Creatinine Est GFR ( Amer) Est GFR (Non-Af Amer) Glucose Calcium Total Protein 3.5 L 03/24/18 04:50 WBC RBC Hgb Hct MCV MCH MCHC RDW Plt Count Seg Neutrophils % Lymphocytes % Monocytes % Eosinophils % Basophils % Absolute Neutrophils Absolute Lymphocytes Absolute Monocytes Absolute Eosinophils Absolute Basophils Carbonic Acid HCO3/H2CO3 Ratio ABG pH ABG pCO2 ABG pO2 ABG HCO3 ABG O2 Saturation ABG Base Excess FiO2 Sodium 137.6 Potassium 4.3 Chloride 108 H Carbon Dioxide 25 Anion Gap 5 BUN 12 Creatinine 0.46 L Est GFR ( Amer) > 60 Est GFR (Non-Af Amer) > 60 Glucose 110 Calcium 7.6 L Total Protein 03/20/18 12:54 Abdominal Fluid Gram Stain - Final 03/20/18 12:54 Abdominal Fluid Body Fluid Culture - Final Enterococcus Faecalis(Group D) Klebsiella Pneumoniae Yeast, Not Karol Albicans No Anaerobic Organisms 03/20/18 09:50 Abdominal Fluid Gram Stain - Final 03/20/18 09:50 Abdominal Fluid Body Fluid Culture - Final Klebsiella Pneumoniae Enterococcus Faecalis(Group D) Yeast, Not Karol Albicans No Anaerobic Organisms 03/16/18 03/18/18 03/18/18 05:06 04:45 19:10 CK-MB (CK-2) 1.10 Troponin I < 0.012 < 0.012 NT-Pro-B Natriuret Pep 513 03/18/18 03/20/18 19:50 12:05 CK-MB (CK-2) Troponin I NT-Pro-B Natriuret Pep 272 409 Impressions: KUB X-Ray 03/11/18 00:00 IMPRESSION: There are mildly dilated small bowel loops throughout the left abdo men, developing ileus or obstruction possible. Hepatobiliary Scan Nuclear Medicine 03/12/18 00:00 IMPRESSION: Bile leak in the gallbladder fossa. Catheter Placement 03/14/18 00:00 IMPRESSION: IMAGE(S) OBTAINED DURING PROCEDURE. Fluoroscopy 03/14/18 00:00 IMPRESSION: IMAGE(S) OBTAINED DURING PROCEDURE. Chest/Abdomen CTA 03/18/18 00:00 IMPRESSION: 1 . Status post cholecystectomy with pneumobilia. Upper abdominal ascites and pneumoperitoneum consistent with postsurgical change. 2. Bibasilar atelectasis with pleural effusions. Acute Abdomen Series 03/20/18 00:00 IMPRESSION: Postop ileus. Retroperitoneal Abscess Drainage 03/20/18 00:00 IMPRESSION: Successful CT-guided placement of drainage catheter. Abdomen/Pelvis CT 03/21/18 00:00 IMPRESSION: Interval endotracheal intubation. Interval worsening of now moderate right, small left pleural effusions and associated atelectasis or consolidation. IMPRESSION: 1. Postoperative findings of cholecystectomy with interval plac ement of a pigtail surgical drain within a fluid collection about the gallbladder fossa and anterior to the liver. There is near total interval resolution of this fluid collection. An additional surgical drain remains in the gallbladder fossa. 2. There is an interval increase in ascites elsewhere about the abdomen. 3. Anasarca. Chest CT 03/21/18 00:00 IMPRESSION: Interval endotracheal intubation. Interval worsening of now moderate right, small left pleural effusions and associated atelectasis or consolidation. IMPRESSION: 1. Postoperative findings of cholecystectomy with interval placement of a pigtail surgical drain within a fluid collection about the gallbladder fossa and anterior to the liver. There is near total interval resolution of this fluid collection. An additional surgical drain remains in the gallbladder fossa. 2. There is an interval increase in ascites elsewhere about the abdomen. 3. Anasarca. Thoracentesis Ultrasound 03/23/18 12:00 IMPRESSION: Small volume right-sided thoracentesis utilizing ultrasound guidance as detailed above. Chest X-Ray 03/24/18 06:00 IMPRESSION: No significant change. Assessment & Plan - Diagnosis (1) Acute respiratory failure with hypoxia Is this a current diagnosis for this admission?: Yes Plan: Oxygenate and ventilate as necessary (2) COPD (chronic obstructive pulmonary disease) Qualifiers: COPD type: unspecified COPD Qualified Code(s): J44.9 - Chronic obstructive pulmonary disease, unspecified Is this a current diagnosis for this admission?: Yes Plan: Generic Name Dose Route Start Last Admin Trade Name Freq PRN Reason Stop Dose Admin Nicotine 1 each 03/25/18 14:49 Nicoderm 7 Mg/24 Hr Transdermal Patch TD 04/24/18 14:48 DAILYP PRN WITHDRAWAL SYMPTOMS Tiotropium [place] 1 cap 03/12/18 06:00 03/25/18 05:14 Spiriva Handihaler 5 Cap/Kit (18 Mcg/Cap) IH 04/11/18 05:59 1 cap Q6AM JULIAN Albuterol 2.5 mg 03/17/18 09:20 03/24/18 12:03 Ventolin 0.083% Neb 2.5 Mg/3 Ml Ampul NEB 04/16/18 09:19 2.5 mg RTQ6HP PRN SOB Levalbuterol HCl 0.63 mg 03/25/18 16:00 03/25/18 16:38 Xopenex Neb 0.63 Mg/3 Ml Ampul NEB 04/24/18 15:59 0.63 mg RTQ8 JULIAN (3) Gallbladder cancer Is this a current diagnosis for this admission?: Yes Plan: As per surgery and oncology (4) Sepsis Is this a current diagnosis for this admission?: Yes Plan: 03/22/18 10:30 Gram Stain - Final Tracheal Aspirate Sputum Culture - Final Yeast, Not Karol Albicans Greatly Reduced Normal Olivia 03/20/18 12:54 Gram Stain - Final Abdominal Fluid Body Fluid Culture - Final Enterococcus Faecalis(Group D) Klebsiella Pneumoniae Yeast, Not Karol Albicans No Anaerobic Organisms 03/20/18 09:50 Gram Stain - Final Abdominal Fluid Body Fluid Culture - Final Klebsiella Pneumoniae Enterococcus Faecalis(Group D) Yeast, Not Karol Albicans No Anaerobic Organisms (5) Tobacco abuse Is this a current diagnosis for this admission?: Yes Plan: Stop smoking transdermal nicotine - Time Total Critical Time (Minutes): 45
--- NOTE | 2018-03-25 18:55 | PDOC PROGRESS REPORT ---
Subjective Progress Note for:: 03/24/18 Subjective:: c/w bilat effusions + bacterial peritonitis strongly consider thoracentesis Reason For Visit: GALLBLADDER CANCER Physical Exam Vital Signs: Temp Pulse Resp BP Pulse Ox 100.0 F 96 24 H 137/65 H 98 03/24/18 12:00 03/24/18 12:03 03/24/18 12:03 03/24/18 12:00 03/24/18 12:03 Intake & Output 03/23/18 03/24/18 03/25/18 06:59 06:59 06:59 Intake Total 2250 2952 0 Output Total 2235 1495 1000 Balance 15 1457 -1000 Weight 102.3 kg 103.4 kg General appearance: PRESENT: no acute distress, disheveled, morbidly obese Head exam: PRESENT: atraumatic, normocephalic Eye exam: PRESENT: conjunctiva pale, EOMI. ABSENT: nystagmus Mouth exam: PRESENT: dry mucosa, neck supple, tongue midline, other - T tube Neck exam: ABSENT: carotid bruit, JVD, lymphadenopathy, thyromegaly, tracheal deviation, tracheostomy Respiratory exam: PRESENT: decreased breath sounds, prolonged expiratory phas, rales, rhonchi, unlabored. ABSENT: retraction, stridor Cardiovascular exam: PRESENT: RRR, +S1, +S2 Pulses: PRESENT: normal radial pulses GI/Abdominal exam: PRESENT: other - Wound VAC multiple drains Gentrourinary exam: PRESENT: indwelling catheter Extremities exam: ABSENT: clubbing, joint swelling, pedal edema Musculoskeletal exam: ABSENT: ambulatory, deformity, dislocation Neurological exam: PRESENT: altered, awake Skin exam: PRESENT: dry, warm Results Laboratory Results: 03/24/18 04:50 03/24/18 04:50 03/23/18 03/24/18 03/24/18 13:40 04:50 04:50 WBC 10.6 H RBC 3.23 L Hgb 9.0 L Hct 27.0 L MCV 84 MCH 27.7 MCHC 33.2 RDW 15.3 H Plt Count 399 Seg Neutrophils % Not Reportable Lymphocytes % Not Reportable Monocytes % Not Reportable Eosinophils % Not Reportable Basophils % Not Reportable Absolute Neutrophils Not Reportable Absolute Lymphocytes Not Reportable Absolute Monocytes Not Reportable Absolute Eosinophils Not Reportable Absolute Basophils Not Reportable Carbonic Acid 0.91 L HCO3/H2CO3 Ratio 26:1 ABG pH 7.52 H ABG pCO2 30.2 L ABG pO2 77.8 L ABG HCO3 23.9 ABG O2 Saturation 96.7 ABG Base Excess 1.3 FiO2 45% Sodium Potassium Chloride Carbon Dioxide Anion Gap BUN Creatinine Est GFR ( Amer) Est GFR (Non-Af Amer) Glucose Calcium Total Protein 3.5 L 03/24/18 04:50 WBC RBC Hgb Hct MCV MCH MCHC RDW Plt Count Seg Neutrophils % Lymphocytes % Monocytes % Eosinophils % Basophils % Absolute Neutrophils Absolute Lymphocytes Absolute Monocytes Absolute Eosinophils Absolute Basophils Carbonic Acid HCO3/H2CO3 Ratio ABG pH ABG pCO2 ABG pO2 ABG HCO3 ABG O2 Saturation ABG Base Excess FiO2 Sodium 137.6 Potassium 4.3 Chloride 108 H Carbon Dioxide 25 Anion Gap 5 BUN 12 Creatinine 0.46 L Est GFR ( Amer) > 60 Est GFR (Non-Af Amer) > 60 Glucose 110 Calcium 7.6 L Total Protein 03/20/18 12:54 Abdominal Fluid Gram Stain - Final 03/20/18 12:54 Abdominal Fluid Body Fluid Culture - Final Enterococcus Faecalis(Group D) Klebsiella Pneumoniae Yeast, Not Karol Albicans No Anaerobic Organisms 03/20/18 09:50 Abdominal Fluid Gram Stain - Final 03/20/18 09:50 Abdominal Fluid Body Fluid Culture - Final Klebsiella Pneumoniae Enterococcus Faecalis(Group D) Yeast, Not Karol Albicans No Anaerobic Organisms 03/16/18 03/18/18 03/18/18 05:06 04:45 19:10 CK-MB (CK-2) 1.10 Troponin I < 0.012 < 0.012 NT-Pro-B Natriuret Pep 513 03/18/18 03/20/18 19:50 12:05 CK-MB (CK-2) Troponin I NT-Pro-B Natriuret Pep 272 659 Impressions: KUB X-Ray 03/11/18 00:00 IMPRESSION: There are mildly dilated small bowel loops throughout the left abdomen, developing ileus or obstruction possible. Hepatobiliary Scan Nuclear Medicine 03/12/18 00:00 IMPRESSION: Bile leak in the gallbladder fossa. Catheter Placement 03/14/18 00:00 IMPRESSION: IMAGE(S) OBTAINED DURING PROCEDURE. Fluoroscopy 03/14/18 00:00 IMPRESSION: IMAGE(S) OBTAINED DURING PROCEDURE. Chest/Abdomen CTA 03/18/18 00:00 IMPRESSION: 1 . Status post cholecystectomy with pneumobilia. Upper abdominal ascites and pneumoperitoneum consistent with postsurgical change. 2. Bibasilar atelectasis with pleural effusions. Acute Abdomen Series 03/20/18 00:00 IMPRESSION: Postop ileus. Retroperitoneal Abscess Drainage 03/20/18 00:00 IMPRESSION: Successful CT-guided placement of drainage catheter. Abdomen/Pelvis CT 03/21/18 00:00 IMPRESSION: Interval endotracheal intubation. Interval worsening of now moderate right, small left pleural effusions and associated atelectasis or consolidation. IMPRESSION: 1. Postoperative findings of cholecystectomy with interval placement of a pigtail surgical drain within a fluid collection about the gallbladder fossa and anterior to the liver. There is near total interval reso lution of this fluid collection. An additional surgical drain remains in the gallbladder fossa. 2. There is an interval increase in ascites elsewhere about the abdomen. 3. Anasarca. Chest CT 03/21/18 00:00 IMPRESSION: Interval endotracheal intubation. Interval worsening of now moderate right, small left pleural effusions and associated atelectasis or consolidation. IMPRESSION: 1. Postoperative findings of cholecystectomy with interval placement of a pigtail surgical drain within a fluid collection about the gallbladder fossa and anterior to the liver. There is near total interval resolution of this fluid collection. An additional surgical drain remains in the gallbladder fossa. 2. There is an interval increase in ascites elsewhere about the abdomen. 3. Anasarca. Thoracentesis Ultrasound 03/23/18 12:00 IMPRESSION: Small volume right-sided thoracentesis utilizing ultrasound guidance as detailed above. Chest X-Ray 03/24/18 06:00 IMPRESSION: No significant change. Assessment & Plan - Diagnosis (1) Acute respiratory failure with hypoxia Is this a current diagnosis for this admission?: Yes Plan: plan to extubate (2) COPD (chronic obstructive pulmonary disease) Qualifiers: COPD type: unspecified COPD Qualified Code(s): J44.9 - Chronic obstructive pulmonary disease, unspecified Is this a current diagnosis for this admission?: Yes Plan: Generic Name Dose Route Start Last Admin Trade Name Freq PRN Reason Stop Dose Admin Nicotine 1 each 03/25/18 14:49 Nicoderm 7 Mg/24 Hr Transdermal Patch TD 04/24/18 14:48 DAILYP PRN WITHDRAWAL SYMPTOMS Tiotropium [place] 1 cap 03/12/18 06:00 03/25/18 05:14 Spiriva Handihaler 5 Cap/Kit (18 Mcg/Cap) IH 04/11/18 05:59 1 cap Q6AM JULIAN Albuterol 2.5 mg 03/17/18 09:20 03/24/18 12:03 Ventolin 0.083% Neb 2.5 Mg/3 Ml Ampul NEB 04/16/18 09:19 2.5 mg RTQ6HP PRN SOB Levalbuterol HCl 0.63 mg 03/25/18 16:00 03/25/18 16:38 Xopenex Neb 0.63 Mg/3 Ml Ampul NEB 04/24/18 15:59 0.63 mg RTQ8 JULIAN (3) Gallbladder cancer Is this a current diagnosis for this admission?: Yes Plan: As per surgery and oncology (4) Sepsis Is this a current diagnosis for this admission?: Yes Plan: 03/22/18 10:30 Gram Stain - Final Tracheal Aspirate Sputum Culture - Final Yeast, Not Karol Albicans Greatly Reduced Normal Olivia 03/20/18 12:54 Gram Stain - Final Abdominal Fluid Body Fluid Culture - Final Enterococcus Faecalis(Group D) Klebsiella Pneumoniae Yeast, Not Karol Albicans No Anaerobic Organisms 03/20/18 09:50 Gram Stain - Final Abdominal Fluid Body Fluid Culture - Final Klebsiella Pneumoniae Enterococcus Faecalis(Group D) Yeast, Not Karol Albicans No Anaerobic Organisms (5) Tobacco abuse Is this a current diagnosis for this admission?: Yes Plan: Stop smoking transdermal nicotine - Time Total Critical Time (Minutes): 55
--- NOTE | 2018-03-25 19:00 | PDOC PROGRESS REPORT ---
Subjective Progress Note for:: 03/25/18 Subjective:: s/p extubation to bipap stable Reason For Visit: GALLBLADDER CANCER Physical Exam Vital Signs: Temp Pulse Resp BP Pulse Ox 98.8 F 89 33 H 134/70 H 96 03/25/18 10:00 03/25/18 10:00 03/25/18 11:26 03/25/18 10:00 03/25/18 11:26 Intake & Output 03/24/18 03/25/18 03/26/18 06:59 06:59 06:59 Intake Total 2952 3234 Output Total 1495 86933 350 Balance 4067 -95751 -350 Weight 103.4 kg 100.6 kg General appearance: PRESENT: no acute distress, cooperative, disheveled, morbidly obese Head exam: PRESENT: atraumatic, normocephalic Eye exam: PRESENT: conjunctiva pale, EOMI. ABSENT: nystagmus Mouth exam: PRESENT: dry mucosa, neck supple, tongue midline Neck exam: ABSENT: carotid bruit, JVD, lymphadenopathy, thyromegaly, tracheal deviation, tracheostomy Respiratory exam: PRESENT: decreased breath sounds, prolonged expiratory phas, rhonchi, unlabored. ABSENT: retraction, stridor Cardiovascular exam: PRESENT: RRR, +S1, +S2 Pulses: PRESENT: normal radial pulses GI/Abdominal exam: PRESENT: other - Wound VAC multiple drains Gentrourinary exam: PRESENT: indwelling catheter Extremities exam: ABSENT: calf tenderness, clubbing, joint swelling Musculoskeletal exam: ABSENT: ambulatory Neurological exam: PRESENT: awake Skin exam: PRESENT: dry, warm Results Laboratory Results: 03/25/18 04:24 03/25/18 04:24 03/23/18 03/23/18 03/23/18 12:00 12:00 12:00 WBC RBC Hgb Hct MCV MCH MCHC RDW Plt Count Seg Neutrophils % Lymphocytes % Monocytes % Eosinophils % Basophils % Absolute Neutrophils Absolute Lymphocytes Absolute Monocytes Absolute Eosinophils Absolute Basophils Carbonic Acid HCO3/H2CO3 Ratio ABG pH ABG pCO2 ABG pO2 ABG HCO3 ABG O2 Saturation ABG Base Excess FiO2 Sodium Potassium Chloride Carbon Dioxide Anion Gap BUN Creatinine Est GFR ( Amer) Est GFR (Non-Af Amer) Glucose Calcium Fluid Glucose 131 Fluid Total Protein 1.4 Fluid Amylase 12 03/24/18 03/24/18 03/25/18 18:13 18:52 04:24 WBC RBC Hgb Hct MCV MCH MCHC RDW Plt Count Seg Neutrophils % Lymphocytes % Monocytes % Eosinophils % Basophils % Absolute Neutrophils Absolute Lymphocytes Absolute Monocytes Absolute Eosinophils Absolute Basophils Carbonic Acid 1.14 0.90 L HCO3/H2CO3 Ratio 22:1 26:1 ABG pH 7.44 7.51 H ABG pCO2 37.8 29.8 L ABG pO2 48.6 L 98.4 ABG HCO3 25.3 H 23.4 ABG O2 Saturation 86.0 L 98.1 H ABG Base Excess 1.4 1.1 FiO2 50% 50% Sodium 137.7 Potassium 4.1 Chloride 106 Carbon Dioxide 27 Anion Gap 5 BUN 12 Creatinine 0.38 L Est GFR ( Amer) > 60 Est GFR (Non-Af Amer) > 60 Glucose 116 H Calcium 8.0 L Fluid Glucose Fluid Total Protein Fluid Amylase 03/25/18 03/25/18 04:24 04:57 WBC 11.7 H RBC 3.24 L Hgb 8.9 L Hct 27.0 L MCV 83 MCH 27.6 MCHC 33.2 RDW 15.1 H Plt Count 440 Seg Neutrophils % Not Reportable Lymphocytes % Not Reportable Monocytes % Not Reportable Eosinophils % Not Reportable Basophils % Not Reportable Absolute Neutrophils Not Reportable Absolute Lymphocytes Not Reportable Absolute Monocytes Not Reportable Absolute Eosinophils Not Reportable Absolute Basophils Not Reportable Carbonic Acid 1.07 HCO3/H2CO3 Ratio 25:1 ABG pH 7.51 H ABG pCO2 35.6 ABG pO2 94.4 ABG HCO3 27.6 H ABG O2 Saturation 97.8 ABG Base Excess 4.5 FiO2 35% Sodium Potassium Chloride Carbon Dioxide Anion Gap BUN Creatinine Est GFR ( Amer) Est GFR (Non-Af Amer) Glucose Calcium Fluid Glucose Fluid Total Protein Fluid Amylase 03/22/18 10:30 Tracheal Aspirate Gram Stain - Final 03/22/18 10:30 Tracheal Aspirate Sputum Culture - Final Yeast, Not Karol Albicans Greatly Reduced Normal Olivia 03/16/18 03/18/18 03/18/18 05:06 04:45 19:10 CK-MB (CK-2) 1.10 Troponin I < 0.012 < 0.012 NT-Pro-B Natriuret Pep 513 03/18/18 03/20/18 19:50 12:05 CK-MB (CK-2) Troponin I NT-Pro-B Natriuret Pep 614 463 Impressions: KUB X-Ray 03/11/18 00:00 IMPRESSION: There are mildly dilated small bowel loops throughout the left abdomen, developing ileus or obstruction possible. Hepatobiliary Scan Nuclear Medicine 03/12/18 00:00 IMPRESSION: Bile leak in the gallbladder fossa. Catheter Placement 03/14/18 00:00 IMPRESSION: IMAGE(S) OBTAINED DURING PROCEDURE. Fluoroscopy 03/14/18 00:00 IMPRESSION: IMAGE(S) OBTAINED DURING PROCEDURE. Chest/Abdomen CTA 03/18/18 00:00 IMPRESSION: 1 . Status post cholecystectomy with pneumobilia. Upper abdominal ascites and pneumoperitoneum consistent with postsurgical change. 2. Bibasilar atelectasis with pleural effusions. Acute Abdomen Series 03/20/18 00:00 IMPRESSION: Postop ileus. Retroperitoneal Abscess Drainage 03/20/18 00:00 IMPRESSION: Successful CT-guided placement of drainage catheter. Abdomen/Pelvis CT 03/21/18 00:00 IMPRESSION: Interval endotracheal intubation. Interval worsening of now moderate right, small left pleural effusions and associated atelectasis or consolidation. IMPRESSION: 1. Postoperative findings of cholecystectomy with interval placement of a pigtail surgical drain within a fluid collection about the gallbladder fossa and anterior to the liver. There is near total interval resolution of this fluid collection. An additional surgical drain remains in the gallbladder fossa. 2. There is an interval increase in ascites elsewhere about the abdomen. 3. Anasarca. Chest CT 03/21/18 00:00 IMPRESSION: Interval endotracheal intubation. Interval worsening of now moderate right, small left pleural effusions and associated atelectasis or consolidation. IMPRESSION: 1. Postoperative findings of cholecystectomy with interval placement of a pigtail surgical drain within a fluid collection about the gallbladder fossa and anterior to the liver. There is near total interval resolution of this fluid collection. An additional surgical drain remains in the gallbladder fossa. 2. There is an interval increase in ascites elsewhere about the abdomen. 3. Anasarca. Thoracentesis Ultrasound 03/23/18 12:00 IMPRESSION: Small volume right-sided thoracentesis utilizing ultrasound guidance as detailed above. Chest X-Ray 03/25/18 06:00 IMPRESSION: No significant change. Assessment & Plan - Diagnosis (1) Acute respiratory failure with hypoxia Is this a current diagnosis for this admission?: Yes Plan: stable (2) COPD (chronic obstructive pulmonary disease) Qualifiers: COPD type: unspecified COPD Qualified Code(s): J44.9 - Chronic obstructive pulmonary disease, unspecified Is this a current diagnosis for this admission?: Yes Plan: Generic Name Dose Route Start Last Admin Trade Name Freq PRN Reason Stop Dose Admin Nicotine 1 each 03/25/18 14:49 Nicoderm 7 Mg/24 Hr Transdermal Patch TD 04/24/18 14:48 DAILYP PRN WITHDRAWAL SYMPTOMS Tiotropium [place] 1 cap 03/12/18 06:00 03/25/18 05:14 Spiriva Handihaler 5 Cap/Kit (18 Mcg/Cap) IH 04/11/18 05:59 1 cap Q6AM JULIAN Albuterol 2.5 mg 03/17/18 09:20 03/24/18 12:03 Ventolin 0.083% Neb 2.5 Mg/3 Ml Ampul NEB 04/16/18 09:19 2.5 mg RTQ6HP PRN SOB Levalbuterol HCl 0.63 mg 03/25/18 16:00 03/25/18 16:38 Xopenex Neb 0.63 Mg/3 Ml Ampul NEB 04/24/18 15:59 0.63 mg RTQ8 JULIAN (3) Gallbladder cancer Is this a current diagnosis for this admission?: Yes Plan: As per surgery and oncology (4) Sepsis Is this a current diagnosis for this admission?: Yes Plan: improved (5) Tobacco abuse Is this a current diagnosis for this admission?: Yes Plan: Stop smoking transdermal nicotine - Time Total Critical Time (Minutes): 50
[2018-03-26] MEDS: LEVALBUTEROL HCL NEB 0.63 MG/3 ML AMPUL NEB SCH ×3 (01:00→16:10)
[2018-03-26] MEDS: INSULIN REG, HUMAN 100 UNIT/ML 3 ML VIAL (PYX) SUBCUT SCH ×4 (01:09→17:15)
[2018-03-26] MEDS: MEROPENEM 1 GM in NORMAL SALINE 50 ML IV SCH ×3 (02:30→17:15)
[2018-03-26] MEDS: ACETAMINOPHEN 325 MG TABLET NG PRN ×2 (06:37→13:55)
[2018-03-26] MEDS: HEPARIN SOD (PORCINE) 5,000 UNIT/ML 1 ML SYRINGE SUBCUT SCH ×3 (06:37→21:59)
[2018-03-26] MEDS: BUSPIRONE HCL 10 MG TABLET PO SCH ×3 (06:38→21:59)
[2018-03-26] MEDS: TIOTROPIUM BROMIDE DPI 5 CAP/KIT (18 MCG/CAP) IH SCH (06:38)
[2018-03-26 08:27] LABS: ABSOLUTE BASOPHILS # (AUTO) 0.1 10^3/uL (0.0-0.2); ABSOLUTE EOSINOPHILS # (AUTO) 0.4 10^3/uL (0.0-0.6); ABSOLUTE MONOCYTES (AUTO) 0.5 10^3/uL (0.1-1.4); ABSOLUTE NEUT (AUTO) 10.2 10^3/uL (1.7-8.2); BASOPHILS % (AUTO) 0.4 % (0-2); HEMATOCRIT 25.7 % (36.0-47.0); HEMOGLOBIN 8.6 g/dL (12.0-15.5); MEAN CORPUSCULAR HEMOGLOBIN 27.7 pg (27.0-33.4); MEAN CORPUSCULAR HGB CONC 33.5 g/dL (32.0-36.0); MEAN CORPUSCULAR VOLUME 83 fl (80-97); MONOCYTES % (AUTO) 4.5 % (3-13); PLATELET COUNT 506 10^3/uL (150-450); SEGMENTED NEUTROPHILS % (AUTO) 84.1 % (42-78); TOTAL CELLS COUNTED % (AUTO) 100 %; WHITE BLOOD COUNT 12.2 10^3/uL (4.0-10.5)
[2018-03-26 08:38] LABS: PROTHROMBIN TIME 14.8 SEC (11.4-15.4)
[2018-03-26 08:49] LABS: ALANINE AMINOTRANSFERASE 65 U/L (9-52); ALBUMIN 2.4 g/dL (3.5-5.0); ALKALINE PHOSPHATASE 334 U/L (38-126); ANION GAP 9 (5-19); ASPARTATE AMINO TRANSFERASE 79 U/L (14-36); BILIRUBIN,DIRECT 0.3 mg/dL (0.0-0.4); BILIRUBIN,TOTAL 0.6 mg/dL (0.2-1.3); BLOOD UREA NITROGEN 14 mg/dL (7-20); CALCIUM 8.4 mg/dL (8.4-10.2); CARBON DIOXIDE 26 mmol/L (22-30); CHLORIDE 104 mmol/L (98-107); GLUCOSE 119 mg/dL (75-110); POTASSIUM 3.9 mmol/L (3.6-5.0); SODIUM 138.7 mmol/L (137-145); TOTAL PROTEIN 4.7 g/dL (6.3-8.2)
[2018-03-26 09:04] LABS: PREALBUMIN 9.3 mg/dL (17.6-36.0)
[2018-03-26] MEDS: AMINO ACIDS 5%/D25W 1,000 ML IV PRN (10:45)
[2018-03-26] MEDS: FAMOTIDINE INJ/PF 20 MG/2 ML SDV IV SCH ×2 (10:47→21:59)
[2018-03-26] MEDS: LIDOCAINE 5% (700 MG) TRANSDERMAL ADH..PATCH TP SCH (10:48)
[2018-03-26] MEDS: FLUCONAZOLE 200 MG/NS RTU 200 MG/100 ML RTUPB IV SCH (10:48)
[2018-03-26] MEDS: FAT EMULSIONS 250 ML IV SCH (10:48)
[2018-03-26] MEDS ORDERED: NORMAL SALINE 250 ML IV PRN ×2 (10:49)
[2018-03-26] MEDS ORDERED: FUROSEMIDE INJ/PF 20 MG/2 ML SDV IV PRN (11:00)
[2018-03-26] MEDS: SALMETEROL XINAFOATE DISKUS 50 MCG/1 DOSE 28 DOSE IH SCH ×2 (11:20→21:58)
[2018-03-26] MEDS: LORAZEPAM 1 MG TABLET NG PRN (12:39)
[2018-03-26] MEDS ORDERED: FUROSEMIDE INJ/PF 40 MG/4 ML SDV IV ONE (15:07)
[2018-03-26 15:24] LABS: ARTERIAL BLOOD BASE EXCESS 5.1 mmol/L; ARTERIAL BLOOD H2CO3 0.97 mmol/L (1.05-1.35); ARTERIAL BLOOD HCO3 27.8 mmol/L (20-24); ARTERIAL BLOOD PCO2 32.3 mmHg (35-45); ARTERIAL BLOOD PH 7.55 (7.35-7.45); ARTERIAL BLOOD PO2 51.4 mmHg (80-100); ARTERIAL BLOOD TOTAL CO2 28.7 mmol/L (21-25)
[2018-03-26 15:25] LABS: ARTERIAL BLOOD FIO2 21%
[2018-03-26] MEDS: ALBUMIN HUMAN 12.5 GM/50 ML RTUINJ IV SCH ×2 (15:33→16:00)
--- NOTE | 2018-03-26 15:39 | PDOC PROGRESS REPORT ---
Subjective Progress Note for:: 03/26/18 Subjective:: stable Reason For Visit: GALLBLADDER CANCER Physical Exam Vital Signs: Temp Pulse Resp BP Pulse Ox 99.9 F 97 22 H 137/71 H 99 03/26/18 08:00 03/26/18 08:48 03/26/18 08:48 03/26/18 08:00 03/26/18 08:48 Intake & Output 03/25/18 03/26/18 03/27/18 06:59 06:59 06:59 Intake Total 3234 1400 647 Output Total 30511 4025 300 Balance -59406 -7951 347 Weight 100.6 kg 98.9 kg General appearance: PRESENT: no acute distress, disheveled, morbidly obese. ABSENT: cooperative Head exam: PRESENT: atraumatic, normocephalic Eye exam: PRESENT: conjunctiva pale, EOMI. ABSENT: nystagmus Mouth exam: PRESENT: dry mucosa, neck supple, tongue midline Neck exam: ABSENT: carotid bruit, full ROM, JVD, lymphadenopathy, meningismus, tenderness, thyromegaly, tracheal deviation, tracheostomy, other Respiratory exam: PRESENT: decreased breath sounds, prolonged expiratory phas, rales, rhonchi, unlabored. ABSENT: retraction, stridor Cardiovascular exam: PRESENT: RRR, rubs, +S2 Pulses: PRESENT: normal radial pulses GI/Abdominal exam: PRESENT: soft, other - Status post surgery Gentrourinary exam: PRESENT: indwelling catheter Neurological exam: PRESENT: altered, awake Skin exam: PRESENT: dry, warm Results Laboratory Results: 03/26/18 08:15 03/26/18 08:15 03/23/18 03/25/18 03/26/18 12:00 13:13 08:15 WBC 12.2 H RBC 3.10 L Hgb 8.6 L Hct 25.7 L MCV 83 MCH 27.7 MCHC 33.5 RDW 15.0 H Plt Count 506 H Seg Neutrophils % 84.1 H Lymphocytes % 8.0 L Monocytes % 4.5 Eosinophils % 3.0 Basophils % 0.4 Absolute Neutrophils 10.2 H Absolute Lymphocytes 1.0 Absolute Monocytes 0.5 Absolute Eosinophils 0.4 Absolute Basophils 0.1 Sodium Potassium Chloride Carbon Dioxide Anion Gap BUN Creatinine Est GFR ( Amer) Est GFR (Non-Af Amer) Glucose Calcium Phosphorus Magnesium Total Bilirubin AST ALT Alkaline Phosphatase Total Protein Albumin Prealbumin Urine Color YELLOW Urine Appearance CLEAR Urine pH 8.0 Ur Specific [place] 1.006 Urine Protein NEGATIVE Urine Glucose (UA) NEGATIVE Urine Ketones NEGATIVE Urine Blood MODERATE H Urine Nitrite NEGATIVE Ur Leukocyte Esterase NEGATIVE Urine WBC (Auto) 1 Urine RBC (Auto) 0 Fluid LDH 220 03/26/18 08:15 WBC RBC Hgb Hct MCV MCH MCHC RDW Plt Count Seg Neutrophils % Lymphocytes % Monocytes % Eosinophils % Basophils % Absolute Neutrophils Absolute Lymphocytes Absolute Monocytes Absolute Eosinophils Absolute Basophils Sodium 138.7 Potassium 3.9 Chloride 104 Carbon Dioxide 26 Anion Gap 9 BUN 14 Creatinine 0.44 L Est GFR ( Amer) > 60 Est GFR (Non-Af Amer) > 60 Glucose 119 H Calcium 8.4 Phosphorus 4.0 Magnesium 1.9 Total Bilirubin 0.6 AST 79 H ALT 65 H Alkaline Phosphatase 334 H Total Protein 4.7 L Albumin 2.4 L Prealbumin 9.3 L Urine Color Urine Appearance Urine pH Ur Specific [place] Urine Protein Urine Glucose (UA) Urine Ketones Urine Blood Urine Nitrite Ur Leukocyte Esterase Urine WBC (Auto) Urine RBC (Auto) Fluid LDH 03/20/18 12:58 Blood Blood Culture - Final NO GROWTH IN 5 DAYS 03/20/18 12:50 Blood Blood Culture - Final NO GROWTH IN 5 DAYS 03/16/18 03/18/18 03/18/18 05:06 04:45 19:10 CK-MB (CK-2) 1.10 Troponin I < 0.012 < 0.012 NT-Pro-B Natriuret Pep 513 03/18/18 03/20/18 19:50 12:05 CK-MB (CK-2) Troponin I NT-Pro-B Natriuret Pep 272 659 Impressions: KUB X-Ray 03/11/18 00:00 IMPRESSION: There are mildly dilated small bowel loops throughout the left abdomen, developing ileus or obstruction possible. Hepatobiliary Scan Nuclear Medicine 03/12/18 00:00 IMPRESSION: Bile leak in the gallbladder fossa. Catheter Placement 03/14/18 00:00 IMPRESSION: IMAGE(S) OBTAINED DURING PROCEDURE. Fluoroscopy 03/14/18 00:00 IMPRESSION: IMAGE(S) OBTAINED DURING PROCEDURE. Chest/Abdomen CTA 03/18/18 00:00 IMPRESSION: 1 . Status post cholecystectomy with pneumobilia. Upper abdominal ascites and pneumoperitoneum consistent with postsurgical change. 2. Bibasilar atelectasis with pleural effusions. Acute Abdomen Series 03/20/18 00:00 IMPRESSION: Postop ileus. Retroperitoneal Abscess Drainage 03/20/18 00:00 IMPRESSION: Successful CT-guided placement of drainage catheter. Abdomen/Pelvis CT 03/21/18 00:00 IMPRESSION: Interval endotracheal intubation. Interval worsening of now moderate right, small left pleural effusions and associated atelectasis or consolidation. IMPRESSION: 1. Postoperative findings of cholecystectomy with interval placement of a pigtail surgical drain within a fluid collection about the gallbladder fossa and anterior to the liver. There is near total interval resolution of this fluid collection. An additional surgical drain remains in the gallbladder fossa. 2. There is an interval increase in ascites elsewhere about the abdomen. 3. Anasarca. Chest CT 03/21/18 00:00 IMPRESSION: Interval endotracheal intubation. Interval worsening of now moderate right, small left pleural effusions and associated atelectasis or consolidation. IMPRESSION: 1. Postoperative findings of cholecystectomy with interval placement of a pigtail surgical drain within a fluid collection about the gallbladder fossa and anterior to the liver. There is near total interval resolution of this fluid collection. An additional surgical drain remains in the gallbladder fossa. 2. There is an interval increase in ascites elsewhere about the abdomen. 3. Anasarca. Thoracentesis Ultrasound 03/23/18 12:00 IMPRESSION: Small volume right-sided thoracentesis utilizing ultrasound guidance as detailed above. Chest X-Ray 03/25/18 06:00 IMPRESSION: No significant change. Assessment & Plan - Diagnosis (1) Acute respiratory failure with hypoxia Is this a current diagnosis for this admission?: Yes Plan: stable (2) COPD (chronic obstructive pulmonary disease) Qualifiers: COPD type: unspecified COPD Qualified Code(s): J44.9 - Chronic obstructive pulmonary disease, unspecified Is this a current diagnosis for this admission?: Yes Plan: Generic Name Dose Route Start Last Admin Trade Name Freq PRN Reason Stop Dose Admin Nicotine 1 each 03/25/18 14:49 Nicoderm 7 Mg/24 Hr Transdermal Patch TD 04/24/18 14:48 DAILYP PRN WITHDRAWAL SYMPTOMS Tiotropium [place] 1 cap 03/12/18 06:00 03/25/18 05:14 Spiriva Handihaler 5 Cap/Kit (18 Mcg/Cap) IH 04/11/18 05:59 1 cap Q6AM JULIAN Albuterol 2.5 mg 03/17/18 09:20 03/24/18 12:03 Ventolin 0.083% Neb 2.5 Mg/3 Ml Ampul NEB 04/16/18 09:19 2.5 mg RTQ6HP PRN SOB Levalbuterol HCl 0.63 mg 03/25/18 16:00 03/25/18 16:38 Xopenex Neb 0.63 Mg/3 Ml Ampul NEB 04/24/18 15:59 0.63 mg RTQ8 JULIAN (3) Gallbladder cancer Is this a current diagnosis for this admission?: Yes Plan: As per surgery and oncology (4) Sepsis Is this a current diagnosis for this admission?: Yes Plan: Improved (5) Tobacco abuse Is this a current diagnosis for this admission?: Yes Plan: Stop smoking transdermal nicotine - Time Total Critical Time (Minutes): 40
[2018-03-26 17:55] LABS: HEMATOCRIT 29.7 % (36.0-47.0); HEMOGLOBIN 9.8 g/dL (12.0-15.5); MEAN CORPUSCULAR HEMOGLOBIN 27.7 pg (27.0-33.4); MEAN CORPUSCULAR VOLUME 84 fl (80-97); PLATELET COUNT 544 10^3/uL (150-450); RED BLOOD COUNT 3.55 10^6/uL (3.72-5.28); RED CELL DISTRIBUTION WIDTH 15.2 % (11.5-14.0); WHITE BLOOD COUNT 14.7 10^3/uL (4.0-10.5)
--- NOTE | 2018-03-26 19:36 | PDOC PROGRESS REPORT ---
Subjective Progress Note for:: 03/26/18 Subjective:: 63 y.o. F with HTN, asthma and COPD admitted to [facility] 03/01/2018 for ch olecystectomy to remove cancerous gallbladder. Within days of surgery there was a large amount of output noted in her JASKARAN drain. The patient underwent an ERCP on 03/14/2018 with CBD stent placement. Within 24hrs she began developing signs of sepsis and the hospitalist service was consulted for medical management. Follow up CT Abd/Pelvis showed small amount of free air in RUQ and pneumobilia, small a mount of free fluid surrounding the liver and in RUQ, and a small R pleural effusion. The patient was seen on morning rounds while her was present. She was extubated (03/24/18 @1700) and is able to tolerate ~ 20 minutes off BiPAP throughout the day. She is fully awake today, A&Ox4, follows all directions, though intermittently confused. She has been weaned off of Junito-Synephrine and is maintaining adequate blood pressures. Currently on meropenem for sepsis secondary to bile leak following radical cholecystectomy and partial hepatectomy for metastatic gallbladder cancer. Percutaneous drain placed by interventional radiology. Cultures growing Klebsiella pneumoniae, enterococcus, yeast. Santos catheter is in place; diuresing well with paired albumin and Lasix. Patient w/ third spacing (gradual improvement); receiving TPN. Started on tube feeds today. Patient denies questions at this time; all of her husbands questions were addressed. Reason For Visit: GALLBLADDER CANCER Physical Exam Vital Signs: Temp Pulse Resp BP Pulse Ox 99.5 F 96 31 H 134/74 H 96 03/26/18 18:01 03/26/18 18:00 03/26/18 18:01 03/26/18 18:00 03/26/18 18:01 Intake & Output 03/25/18 03/26/18 03/27/18 06:59 06:59 06:59 Intake Total 3234 1400 2470 Output Total 59551 4028 0195 Balance -25890 -2625 -825 Weight 100.6 kg 98.9 kg General appearance: PRESENT: no acute distress, obese, well-developed, well- nourished, other - dependent edema to flanks/sacrum Head exam: PRESENT: atraumatic, normocephalic Eye exam: PRESENT: conjunctiva pink, EOMI, PERRLA. ABSENT: scleral icterus Ear exam: PRESENT: normal external ear exam Mouth exam: PRESENT: moist, tongue midline, other - NG tube Rt nare Neck exam: ABSENT: carotid bruit, JVD, lymphadenopathy, thyromegaly Respiratory exam: PRESENT: decreased breath sounds - Bibasilar, prolonged expiratory phas, symmetrical, tachypnea, other - BiPAP dependant. ABSENT: rales, rhonchi, wheezes Cardiovascular exam: PRESENT: RRR, other. ABSENT: diastolic murmur, rubs, systolic murmur Pulses: PRESENT: normal dorsalis pedis pul Vascular exam: PRESENT: normal capillary refill GI/Abdominal exam: PRESENT: ascites, hypoactive bowel sounds, normal bowel sounds, soft. ABSENT: distended, guarding, mass, organolmegaly, rebound, tenderness Rectal exam: PRESENT: deferred Gentrourinary exam: PRESENT: indwelling catheter Extremities exam: PRESENT: full ROM, pedal edema - trace. ABSENT: calf tenderness, clubbing Neurological exam: PRESENT: alert, awake, oriented to person, oriented to place, oriented to time, oriented to situation, CN II-XII grossly intact, other - intermittently confused. ABSENT: motor sensory deficit Psychiatric exam: PRESENT: appropriate affect, normal mood. ABSENT: homicidal ideation, suicidal ideation Skin exam: PRESENT: dry, intact, warm. ABSENT: cyanosis, rash Results Laboratory Results: 03/26/18 17:47 03/26/18 08:15 03/23/18 03/26/18 03/26/18 12:00 08:15 08:15 WBC 12.2 H RBC 3.10 L Hgb 8.6 L Hct 25.7 L MCV 83 MCH 27.7 MCHC 33.5 RDW 15.0 H Plt Count 506 H Seg Neutrophils % 84.1 H Lymphocytes % 8.0 L Monocytes % 4.5 Eosinophils % 3.0 Basophils % 0.4 Absolute Neutrophils 10.2 H Absolute Lymphocytes 1.0 Absolute Monocytes 0.5 Absolute Eosinophils 0.4 Absolute Basophils 0.1 Carbonic Acid HCO3/H2CO3 Ratio ABG pH ABG pCO2 ABG pO2 ABG HCO3 ABG O2 Saturation ABG Base Excess FiO2 Sodium 138.7 Potassium 3.9 Chloride 104 Carbon Dioxide 26 Anion Gap 9 BUN 14 Creatinine 0.44 L Est GFR ( Amer) > 60 Est GFR (Non-Af Amer) > 60 Glucose 119 H Calcium 8.4 Phosphorus 4.0 Magnesium 1.9 Total Bilirubin 0.6 AST 79 H ALT 65 H Alkaline Phosphatase 334 H Total Protein 4.7 L Albumin 2.4 L Prealbumin 9.3 L Fluid LDH 220 Blood Type Antibody Screen 03/26/18 03/26/18 03/26/18 11:15 14:54 17:47 WBC 14.7 H RBC 3.55 L Hgb 9.8 L Hct 29.7 L MCV 84 MCH 27.7 MCHC 33.0 RDW 15.2 H Plt Count 544 H Seg Neutrophils % Lymphocytes % Monocytes % Eosinophils % Basophils % Absolute Neutrophils Absolute Lymphocytes Absolute Monocytes Absolute Eosinophils Absolute Basophils Carbonic Acid 0.97 L HCO3/H2CO3 Ratio 28:1 ABG pH 7.55 H ABG pCO2 32.3 L ABG pO2 51.4 L ABG HCO3 27.8 H ABG O2 Saturation 91.0 L ABG Base Excess 5.1 FiO2 21% Sodium Potassium Chloride Carbon Dioxide Anion Gap BUN Creatinine Est GFR ( Amer) Est GFR (Non-Af Amer) Glucose Calcium Phosphorus Magnesium Total Bilirubin AST ALT Alkaline Phosphatase Total Protein Albumin Prealbumin Fluid LDH Blood Type A POSITIVE Antibody Screen NEGATIVE 03/22/18 10:30 Tracheal Aspirate Gram Stain - Final 03/22/18 10:30 Tracheal Aspirate Sputum Culture - Final Yeast, Not Karol Albicans Greatly Reduced Normal Olivia 03/23/18 12:00 Thoracic Fluid AFB Smear Concentration - Final 03/23/18 12:00 Thoracic Fluid Acid Fast Bacilli Smear - Final 03/20/18 10:24 Abdomen - Specimen From Or Fungal Smear - Final 03/20/18 10:24 Abdomen - Specimen From Or Fungal Smear - Final 03/23/18 12:00 Thoracic Fluid Gram Stain - Final 03/23/18 12:00 Thoracic Fluid Body Fluid Culture - Final NO AEROBIC OR ANAEROBIC ORGANISMS RECOVERED 03/16/18 03/18/18 03/18/18 05:06 04:45 19:10 CK-MB (CK-2) 1.10 Troponin I < 0.012 < 0.012 NT-Pro-B Natriuret Pep 513 03/18/18 03/20/18 19:50 12:05 CK-MB (CK-2) Troponin I NT-Pro-B Natriuret Pep 272 769 Impressions: KUB X-Ray 03/11/18 00:00 IMPRESSION: There are mildly dilated small bowel loops throughout the left abdomen, developing ileus or obstruction possible. Hepatobiliary Scan Nuclear Medicine 03/12/18 00:00 IMPRESSION: Bile leak in the gallbladder fossa. Catheter Placement 03/14/18 00:00 IMPRESSION: IMAGE(S) OBTAINED DURING PROCEDURE. Fluoroscopy 03/14/18 00:00 IMPRESSION: IMAGE(S) OBTAINED DURING PROCEDURE. Chest/Abdomen CTA 03/18/18 00:00 IMPRESSION: 1 . Status post cholecystectomy with pneumobilia. Upper abdominal ascites and pneumoperitoneum consistent with postsurgical change. 2. Bibasilar atelectasis with pleural effusions. Acute Abdomen Series 03/20/18 00:00 IMPRESSION: Postop ileus. Retroperitoneal Abscess Drainage 03/20/18 00:00 IMPRESSION: Successful CT-guided placement of drainage catheter. Abdomen/Pelvis CT 03/21/18 00:00 IMPRESSION: Interval endotracheal intubation. Interval worsening of now moderate right, small left pleural effusions and associated atelectasis or con solidation. IMPRESSION: 1. Postoperative findings of cholecystectomy with interval placement of a pigtail surgical drain within a fluid collection about the gallbladder fossa and anterior to the liver. There is near total interval resolution of this fluid collection. An additional surgical drain remains in the gallbladder fossa. 2. There is an interval increase in ascites elsewhere about the abdomen. 3. Anasarca. Chest CT 03/21/18 00:00 IMPRESSION: Interval endotracheal intubation. Interval worsening of now moderate right, small left pleural effusions and associated atelectasis or consolidation. IMPRESSION: 1. Postoperative findings of cholecystectomy with interval placement of a pigtail surgical drain within a fluid collection about the gallbladder fossa and anterior to the liver. There is near total interval resolution of this fluid collection. An additional surgical drain remains in the gallbladder fossa. 2. There is an interval increase in ascites elsewhere about the abdomen. 3. Anasarca. Thoracentesis Ultrasound 03/23/18 12:00 IMPRESSION: Small volume right-sided thoracentesis utilizing ultrasound g uidance as detailed above. Chest X-Ray 03/25/18 06:00 IMPRESSION: No significant change. Assessment & Plan - Diagnosis (1) Sepsis Is this a current diagnosis for this admission?: Yes Plan: Initially improved; now concerned this may be worsening. Continues to have high grade temps (102.2), WBCs trending up (13.5-> 13.8-> 13.5-> 10.6-> 11.7-> 12.2-> 14.7). Sepsis secondary to intra-abdominal infection. Evidence by tachycardia, leukocyosis, fever (TROG795.2), tachypnea (RR 24-40) No evidence of PNA. Blood cultures (03/16/18, 03/20/18) negative at 5 days Repeat blood cultures to be obtained during next temp >101 Urinalysis negative; repeat yesterday is nml. Culture pending. Now s/p percutaneous drain placement. Peritoneal fluid C/S growing klebsiella pneumoniae, enterococcus faecalis, yeast. AFB and Fungal smears pending. Sputum culture shows yeast. Thoracic fluid AFB smear pending. Culture has no growth (final). Repeat CT Chest/ABD/Pelvis pending. Influenza A/B pending. Continue Meropenem, IV Diflucan. Vancomycin discontinued 03/25/18 Infectious Disease is consulted; appreciate Dr. Vela's evaluation and recommendations. Previously received Cipro pre-operatively before Ex Lap, postoperatively received Ancef and Flagyl 03/06-03/13 (2) Acute respiratory failure with hypoxia Is this a current diagnosis for this admission?: Yes Plan: Improved; tolerating BiPAP; able to come off for short periods. Secondary to poor respiratory effort/splinting stemming from postoperative pain resulting in atelectasis and bilateral pleural effusions; complicated by sepsis. Bilateral pleural effusions on CTA; R>L. Continue to be present on CXR. CT chest demonstrates increase in pleural effusions, R>L with associated atelectasis ProBNP 659, echocardiogram is reassuring. LVEF 65%, normal diastolic function Thoracentesis; only [address] Chest pending. Influenza pending. Continue supplemental oxygen, mechanical ventilation as needed to maintain oxygen saturations. Scheduled and as needed nebulizer treatments. Will reduce frequency of sc heduled nebulizers. Resume Spiriva and Serevent. Continue to diuresis as BP and kidney function allows. Pulmonology is consulted; appreciate Dr. Booth's assistance. 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 Tadeo's assistance. Surgery is primary; appreciate Dr. Michaud's expertise with surgical/oncological cases. Discussed with surgery today. May begin tube feeds at 10 mL's per hour. Overlap with TPN (caution regarding ileus; has not had bm in 8 days; hopeful to prompt activity). (4) Postoperative pain Is this a current diagnosis for this admission?: Yes Plan: Status post cholecystectomy and ERCP with JASKARAN and percutaneous drains in place. Postoperative pain may have contributed to her acute respiratory failure with hypoxia secondary to splinting. Continue providing analgesics as needed. Oxycodone per NG, IV tylenol or toradaol is available. Lidoderm patches, repositioning. (5) Anxiety Is this a current diagnosis for this admission?: Yes Plan: Patient has a PMH of anxiety Family reports the patient has been significantly anxious while inpatient Ativan 1 mg via NG tube every 4 hours as needed. BuSpar three times daily. (6) Anemia Qualifiers: Other causes of anemia: chronic disease, other Is this a current diagnosis for this admission?: Yes Plan: Initial trend down, now stable; 13.5-> 8.6-> 9.4-> 9.0-> 8.9-> 9.8 Now s/p 2 unit PRBC. No evidence of ongoing bleeding. Will monitor closely and provide additional PRBC for Hgb <8 Registered dietitian is consulted (7) COPD (chronic obstructive pulmonary disease) Qualifiers: COPD type: unspecified COPD Qualified Code(s): J44.9 - Chronic obstructive pulmonary disease, unspecified Is this a current diagnosis for this admission?: Yes Plan: Without exacerbation at this time. Management as above. (8) Tobacco abuse Is this a current diagnosis for this admission?: Yes Plan: Nicotine replacement therapy is offered. (9) Hypotension Is this a current diagnosis for this admission?: Yes Plan: Resolved; blood pressures are now stable Off junito-Synephrine. Secondary to sepsis. Previously provided albumin and Hespan. Repeat albumin again today w/ IV lasix for fluid mobilization. Continue TPN for hypoalbuminemia. (10) Full code status Is this a current diagnosis for this admission?: Yes (11) Debility Is this a current diagnosis for this admission?: Yes Plan: PT is consulted. Discharge planning is consulted. Family goal is to discharge to home with home health services. - Time Time Spent with patient: 35 or more minutes Medications reviewed and adjusted accordingly: Yes Anticipated discharge: Home with Homehealth
[2018-03-26] MEDS: OXYCODONE-ACETAMINOPHEN 5-325 MG TABLET NG PRN (20:30)
[2018-03-26 23:16] LABS: A TYPE INFLUENZA AG NEGATIVE (NEGATIVE); B INFLUENZA AG NEGATIVE (NEGATIVE)
[2018-03-27] MEDS: LEVALBUTEROL HCL NEB 0.63 MG/3 ML AMPUL NEB SCH ×3 (00:34→16:35)
[2018-03-27] MEDS: PHARMACY COMMUNICATION ORDER MC SCH ×2 (00:50→21:26)
[2018-03-27] MEDS: INSULIN REG, HUMAN 100 UNIT/ML 3 ML VIAL (PYX) SUBCUT SCH ×4 (00:52→17:27)
[2018-03-27] MEDS: MEROPENEM 1 GM in NORMAL SALINE 50 ML IV SCH ×3 (02:12→17:28)
[2018-03-27] MEDS: BUSPIRONE HCL 10 MG TABLET PO SCH ×3 (05:48→21:05)
[2018-03-27] MEDS: HEPARIN SOD (PORCINE) 5,000 UNIT/ML 1 ML SYRINGE SUBCUT SCH ×3 (05:48→21:05)
[2018-03-27] MEDS: TIOTROPIUM BROMIDE DPI 5 CAP/KIT (18 MCG/CAP) IH SCH (05:49)
[2018-03-27 05:57] LABS: ARTERIAL BLOOD H2CO3 0.82 mmol/L (1.05-1.35); ARTERIAL BLOOD HCO3 24.5 mmol/L (20-24); ARTERIAL BLOOD O2 SATURATION 93.3 % (94-98); ARTERIAL BLOOD PCO2 27.2 mmHg (35-45); ARTERIAL BLOOD PH 7.57 (7.35-7.45); ARTERIAL BLOOD PO2 55.7 mmHg (80-100); ARTERIAL BLOOD TOTAL CO2 25.3 mmol/L (21-25)
[2018-03-27 05:59] LABS: ARTERIAL BLOOD FIO2 21%
[2018-03-27 06:30] LABS: ABSOLUTE BASOPHILS # (AUTO) 0.1 10^3/uL (0.0-0.2); ABSOLUTE EOSINOPHILS # (AUTO) 0.3 10^3/uL (0.0-0.6); ABSOLUTE LYMPHOCYTES (AUTO) 1.3 10^3/uL (0.5-4.7); ABSOLUTE MONOCYTES (AUTO) 0.8 10^3/uL (0.1-1.4); ABSOLUTE NEUT (AUTO) 11.9 10^3/uL (1.7-8.2); BASOPHILS % (AUTO) 0.5 % (0-2); EOSINOPHILS % (AUTO) 1.9 % (0-6); HEMATOCRIT 28.7 % (36.0-47.0); HEMOGLOBIN 9.6 g/dL (12.0-15.5); LYMPHOCYTES % (AUTO) 8.9 % (13-45); MEAN CORPUSCULAR HEMOGLOBIN 27.9 pg (27.0-33.4); MEAN CORPUSCULAR HGB CONC 33.6 g/dL (32.0-36.0); MEAN CORPUSCULAR VOLUME 83 fl (80-97); MONOCYTES % (AUTO) 5.4 % (3-13); PLATELET COUNT 576 10^3/uL (150-450); RED BLOOD COUNT 3.46 10^6/uL (3.72-5.28); RED CELL DISTRIBUTION WIDTH 15.2 % (11.5-14.0); SEGMENTED NEUTROPHILS % (AUTO) 83.3 % (42-78); TOTAL CELLS COUNTED % (AUTO) 100 %; WHITE BLOOD COUNT 14.3 10^3/uL (4.0-10.5)
--- NOTE | 2018-03-27 06:36 | RADIOLOGY REPORT (SQ) ---
CLINICAL HISTORY: resp failure COMPARISON: March 25, 2018. TECHNIQUE: XR CHEST 1 VIEW 03/27/2018 6:00 AM FRAME BANDER FINDINGS: The heart is borderline in size. There is bibasilar airspace disease. There are bilateral pleural effusions. There is no pneumothorax. There are no acute osseous findings. NG tube and right IJ central line are unchanged. IMPRESSION: No change.
[2018-03-27 06:46] LABS: ANION GAP 6 (5-19); BLOOD UREA NITROGEN 15 mg/dL (7-20); CARBON DIOXIDE 31 mmol/L (22-30); CHLORIDE 107 mmol/L (98-107); GLUCOSE 127 mg/dL (75-110); POTASSIUM 3.7 mmol/L (3.6-5.0); SODIUM 143.8 mmol/L (137-145)
--- NOTE | 2018-03-27 07:42 | PDOC PROGRESS REPORT ---
Subjective Progress Note for:: 03/27/18 Reason For Visit: GALLBLADDER CANCER Physical Exam Vital Signs: Temp Pulse Resp BP Pulse Ox 101.3 F H 85 37 H 152/81 H 90 L 03/27/18 06:01 03/27/18 00:35 03/27/18 06:01 03/27/18 06:00 03/27/18 06:01 Intake & Output 03/26/18 03/27/18 03/28/18 06:59 06:59 06:59 Intake Total 1400 2648 Output Total 4025 3630 Balance -9 -2 Weight 98.9 kg 94.7 kg General appearance: PRESENT: cooperative Head exam: PRESENT: atraumatic Eye exam: PRESENT: conjunctiva pink Respiratory exam: PRESENT: clear to auscultation christian - sl decreased on right Cardiovascular exam: PRESENT: RRR Pulses: PRESENT: normal femoral pulses, normal dorsalis pedis pul Vascular exam: PRESENT: normal capillary refill GI/Abdominal exam: PRESENT: hypoactive bowel sounds, soft, other - both drains inplace with min op of bile Rectal exam: PRESENT: deferred Extremities exam: PRESENT: +1 edema - peripherial edema improved Neurological exam: PRESENT: alert - still sl intermittently confused but reorients quickly. Psychiatric exam: PRESENT: anxious Skin exam: PRESENT: dry Results Laboratory Results: 03/27/18 06:18 03/27/18 06:18 03/23/18 03/26/18 03/26/18 12:00 08:15 08:15 WBC 12.2 H RBC 3.10 L Hgb 8.6 L Hct 25.7 L MCV 83 MCH 27.7 MCHC 33.5 RDW 15.0 H Plt Count 506 H Seg Neutrophils % 84.1 H Lymphocytes % 8.0 L Monocytes % 4.5 Eosinophils % 3.0 Basophils % 0.4 Absolute Neutrophils 10.2 H Absolute Lymphocytes 1.0 Absolute Monocytes 0.5 Absolute Eosinophils 0.4 Absolute Basophils 0.1 Carbonic Acid HCO3/H2CO3 Ratio ABG pH ABG pCO2 ABG pO2 ABG HCO3 ABG O2 Saturation ABG Base Excess FiO2 Sodium 138.7 Potassium 3.9 Chloride 104 Carbon Dioxide 26 Anion Gap 9 BUN 14 Creatinine 0.44 L Est GFR ( Amer) > 60 Est GFR (Non-Af Amer) > 60 Glucose 119 H Calcium 8.4 Phosphorus 4.0 Magnesium 1.9 Total Bilirubin 0.6 AST 79 H ALT 65 H Alkaline Phosphatase 334 H Total Protein 4.7 L Albumin 2.4 L Prealbumin 9.3 L Triglycerides Fluid LDH 220 Blood Type Antibody Screen 03/26/18 03/26/18 03/26/18 11:15 14:54 17:47 WBC 14.7 H RBC 3.55 L Hgb 9.8 L Hct 29.7 L MCV 84 MCH 27.7 MCHC 33.0 RDW 15.2 H Plt Count 544 H Seg Neutrophils % Lymphocytes % Monocytes % Eosinophils % Basophils % Absolute Neutrophils Absolute Lymphocytes Absolute Monocytes Absolute Eosinophils Absolute Basophils Carbonic Acid 0.97 L HCO3/H2CO3 Ratio 28:1 ABG pH 7.55 H ABG pCO2 32.3 L ABG pO2 51.4 L ABG HCO3 27.8 H ABG O2 Saturation 91.0 L ABG Base Excess 5.1 FiO2 21% Sodium Potassium Chloride Carbon Dioxide Anion Gap BUN Creatinine Est GFR ( Amer) Est GFR (Non-Af Amer) Glucose Calcium Phosphorus Magnesium Total Bilirubin AST ALT Alkaline Phosphatase Total Protein Albumin Prealbumin Triglycerides Fluid LDH Blood Type A POSITIVE Antibody Screen NEGATIVE 03/26/18 03/27/18 03/27/18 21:55 05:40 06:18 WBC 14.3 H RBC 3.46 L Hgb 9.6 L Hct 28.7 L MCV 83 MCH 27.9 MCHC 33.6 RDW 15.2 H Plt Count 576 H Seg Neutrophils % 83.3 H Lymphocytes % 8.9 L Monocytes % 5.4 Eosinophils % 1.9 Basophils % 0.5 Absolute Neutrophils 11.9 H Absolute Lymphocytes 1.3 Absolute Monocytes 0.8 Absolute Eosinophils 0.3 Absolute Basophils 0.1 Carbonic Acid 0.82 L HCO3/H2CO3 Ratio 29:1 ABG pH 7.57 H ABG pCO2 27.2 L ABG pO2 55.7 L ABG HCO3 24.5 H ABG O2 Saturation 93.3 L ABG Base Excess 3.0 FiO2 21% Sodium Potassium Chloride Carbon Dioxide Anion Gap BUN Creatinine Est GFR ( Amer) Est GFR (Non-Af Amer) Glucose Calcium Phosphorus Magnesium Total Bilirubin AST ALT Alkaline Phosphatase Total Protein Albumin Prealbumin Triglycerides 172 H Fluid LDH Blood Type Antibody Screen 03/27/18 06:18 WBC RBC Hgb Hct MCV MCH MCHC RDW Plt Count Seg Neutrophils % Lymphocytes % Monocytes % Eosinophils % Basophils % Absolute Neutrophils Absolute Lymphocytes Absolute Monocytes Absolute Eosinophils Absolute Basophils Carbonic Acid HCO3/H2CO3 Ratio ABG pH ABG pCO2 ABG pO2 ABG HCO3 ABG O2 Saturation ABG Base Excess FiO2 Sodium 143.8 Potassium 3.7 Chloride 107 Carbon Dioxide 31 H Anion Gap 6 BUN 15 Creatinine 0.48 L Est GFR ( Amer) > 60 Est GFR (Non-Af Amer) > 60 Glucose 127 H Calcium 9.0 Phosphorus Magnesium Total Bilirubin AST ALT Alkaline Phosphatase Total Protein Albumin Prealbumin Triglycerides Fluid LDH Blood Type Antibody Screen 03/22/18 10:30 Tracheal Aspirate Gram Stain - Final 03/22/18 10:30 Tracheal Aspirate Sputum Culture - Final Yeast, Not Karol Albicans Greatly Reduced Normal Olivia 03/23/18 12:00 Thoracic Fluid AFB Smear Concentration - Final 03/23/18 12:00 Thoracic Fluid Acid Fast Bacilli Smear - Final 03/20/18 10:24 Abdomen - Specimen From Or Fungal Smear - Final 03/20/18 10:24 Abdomen - Specimen From Or Fungal Smear - Final 03/23/18 12:00 Thoracic Fluid Gram Stain - Final 03/23/18 12:00 Thoracic Fluid Body Fluid Culture - Final NO AEROBIC OR ANAEROBIC ORGANISMS RECOVERED 03/16/18 03/18/18 03/18/18 05:06 04:45 19:10 CK-MB (CK-2) 1.10 Troponin I < 0.012 < 0.012 NT-Pro-B Natriuret Pep 513 03/18/18 03/20/18 19:50 12:05 CK-MB (CK-2) Troponin I NT-Pro-B Natriuret Pep 272 659 Impressions: KUB X-Ray 03/11/18 00:00 IMPRESSION: There are mildly dilated small bowel loops throughout the left abdomen, developing ileus or obstruction possible. Hepatobiliary Scan Nuclear Medicine 03/12/18 00:00 IMPRESSION: Bile leak in the gallbladder fossa. Catheter Placement 03/14/18 00:00 IMPRESSION: IMAGE(S) OBTAINED DURING PROCEDURE. Fluoroscopy 03/14/18 00:00 IMPRESSION: IMAGE(S) OBTAINED DURING PROCEDURE. Chest/Abdomen CTA 03/18/18 00:00 IMPRESSION: 1 . Status post cholecystectomy with pneumobilia. Upper abdominal ascites and pneumoperitoneum consistent with postsurgical change. 2. Bibasilar atelectasis with pleural effusions. Acute Abdomen Series 03/20/18 00:00 IMPRESSION: Postop ileus. Retroperitoneal Abscess Drainage 03/20/18 00:00 IMPRESSION: Successful CT-guided placement of drainage catheter. Abdomen/Pelvis CT 03/21/18 00:00 IMPRESSION: Interval endotracheal intubation. Interval worsening of now moderate right, small left pleural effusions and associated atelectasis or consolidation. IMPRESSION: 1. Postoperative findings of cholecystectomy with interval placement of a pigtail surgical drain within a fluid collection about the gallbladder fossa and anterior to the liver. There is near total interval resolution of this fluid collection. An additional surgical drain remains in the gallbladder fossa. 2. There is an interval increase in ascites elsewhere about the abdomen. 3. Anasarca. Chest CT 03/21/18 00:00 IMPRESSION: Interval endotracheal intubation. Interval worsening of now moderate right, small left pleural effusions and associated atelectasis or consolidation. IMPRESSION: 1. Postoperative findings of cholecystectomy with interval placement of a pigtail surgical drain within a fluid collection about the gallbladder fossa and anterior to the liver. There is near total interval resolution of this fluid collection. An additional surgical drain remains in the gallbladder fossa. 2. There is an interval increase in ascites elsewhere about the abdomen. 3. Anasarca. Thoracentesis Ultrasound 03/23/18 12:00 IMPRESSION: Small volume right-sided thoracentesis utilizing ultrasound guidance as detailed above. Chest X-Ray 03/27/18 06:00 IMPRESSION: No change. Assessment & Plan - Diagnosis (1) Acute respiratory failure with hypoxia Is this a current diagnosis for this admission?: Yes (3) Bile leak, postoperative Is this a current diagnosis for this admission?: Yes (4) Full code status Is this a current diagnosis for this admission?: Yes - Plan Summary Plan Summary: wbc up to 14.[address] not yet done, had done well with diuresis and peripheral edema improved. pt dayday ng feeds, will increase rate today will start physical rx today, will repeat ct scan today reeval fluid collection.
[2018-03-27] MEDS ORDERED: LORAZEPAM INJ 2 MG/1 ML VIAL IV PRN (07:46)
[2018-03-27] MEDS: AMINO ACIDS 5%/D25W 1,000 ML IV PRN (08:27)
--- NOTE | 2018-03-27 08:34 | PDOC PROGRESS REPORT ---
Subjective Progress Note for:: 03/27/18 Subjective:: Doing better, is responsive, having longer periods off BiPAP. Worked a little with physical therapy yesterday. Reason For Visit: GALLBLADDER CANCER Physical Exam Vital Signs: Temp Pulse Resp BP Pulse Ox 101.3 F H 101 H 26 H 152/81 H 98 03/27/18 06:01 03/27/18 08:07 03/27/18 08:07 03/27/18 06:00 03/27/18 08:07 Intake & Output 03/26/18 03/27/18 03/28/18 06:59 06:59 06:59 Intake Total 1400 3648 50 Output Total 4023 4715 Balance -3825 -2488 50 Weight 98.9 kg 94.7 kg General appearance: PRESENT: no acute distress, well-developed, well-nourished Head exam: PRESENT: atraumatic, normocephalic Eye exam: PRESENT: conjunctiva pink, EOMI, PERRLA. ABSENT: scleral icterus Ear exam: PRESENT: normal external ear exam Mouth exam: PRESENT: moist, tongue midline Neck exam: ABSENT: carotid bruit, JVD, lymphadenopathy, thyromegaly Respiratory exam: PRESENT: clear to auscultation christian. ABSENT: rales, rhonchi, wheezes Cardiovascular exam: PRESENT: RRR. ABSENT: diastolic murmur, rubs, systolic murmur Pulses: PRESENT: normal dorsalis pedis pul Vascular exam: PRESENT: normal capillary refill GI/Abdominal exam: PRESENT: normal bowel sounds, soft. ABSENT: distended, guarding, mass, organolmegaly, rebound, tenderness Rectal exam: PRESENT: deferred Extremities exam: PRESENT: full ROM. ABSENT: calf tenderness, clubbing, pedal edema Neurological exam: PRESENT: alert, awake, oriented to person, oriented to place, oriented to time, oriented to situation, CN II-XII grossly intact. ABSENT: motor sensory deficit Psychiatric exam: PRESENT: appropriate affect, normal mood. ABSENT: homicidal ideation, suicidal ideation Skin exam: PRESENT: dry, intact, warm. ABSENT: cyanosis, rash Results Laboratory Results: 03/27/18 06:18 03/27/18 06:18 03/23/18 03/26/18 03/26/18 12:00 08:15 08:15 WBC 12.2 H RBC 3.10 L Hgb 8.6 L Hct 25.7 L MCV 83 MCH 27.7 MCHC 33.5 RDW 15.0 H Plt Count 506 H Seg Neutrophils % 84.1 H Lymphocytes % 8.0 L Monocytes % 4.5 Eosinophils % 3.0 Basophils % 0.4 Absolute Neutrophils 10.2 H Absolute Lymphocytes 1.0 Absolute Monocytes 0.5 Absolute Eosinophils 0.4 Absolute Basophils 0.1 Carbonic Acid HCO3/H2CO3 Ratio ABG pH ABG pCO2 ABG pO2 ABG HCO3 ABG O2 Saturation ABG Base Excess FiO2 Sodium 138.7 Potassium 3.9 Chloride 104 Carbon Dioxide 26 Anion Gap 9 BUN 14 Creatinine 0.44 L Est GFR ( Amer) > 60 Est GFR (Non-Af Amer) > 60 Glucose 119 H Calcium 8.4 Phosphorus 4.0 Magnesium 1.9 Total Bilirubin 0.6 AST 79 H ALT 65 H Alkaline Phosphatase 334 H Total Protein 4.7 L Albumin 2.4 L Prealbumin 9.3 L Triglycerides Fluid LDH 220 Blood Type Antibody Screen 03/26/18 03/26/18 03/26/18 11:15 14:54 17:47 WBC 14.7 H RBC 3.55 L Hgb 9.8 L Hct 29.7 L MCV 84 MCH 27.7 MCHC 33.0 RDW 15.2 H Plt Count 544 H Seg Neutrophils % Lymphocytes % Monocytes % Eosinophils % Basophils % Absolute Neutrophils Absolute Lymphocytes Absolute Monocytes Absolute Eosinophils Absolute Basophils Carbonic Acid 0.97 L HCO3/H2CO3 Ratio 28:1 ABG pH 7.55 H ABG pCO2 32.3 L ABG pO2 51.4 L ABG HCO3 27.8 H ABG O2 Saturation 91.0 L ABG Base Excess 5.1 FiO2 21% Sodium Potassium Chloride Carbon Dioxide Anion Gap BUN Creatinine Est GFR ( Amer) Est GFR (Non-Af Amer) Glucose Calcium Phosphorus Magnesium Total Bilirubin AST ALT Alkaline Phosphatase Total Protein Albumin Prealbumin Triglycerides Fluid LDH Blood Type A POSITIVE Antibody Screen NEGATIVE 03/26/18 03/27/18 03/27/18 21:55 05:40 06:18 WBC 14.3 H RBC 3.46 L Hgb 9.6 L Hct 28.7 L MCV 83 MCH 27.9 MCHC 33.6 RDW 15.2 H Plt Count 576 H Seg Neutrophils % 83.3 H Lymphocytes % 8.9 L Monocytes % 5.4 Eosinophils % 1.9 Basophils % 0.5 Absolute Neutrophils 11.9 H Absolute Lymphocytes 1.3 Absolute Monocytes 0.8 Absolute Eosinophils 0.3 Absolute Basophils 0.1 Carbonic Acid 0.82 L HCO3/H2CO3 Ratio 29:1 ABG pH 7.57 H ABG pCO2 27.2 L ABG pO2 55.7 L ABG HCO3 24.5 H ABG O2 Saturation 93.3 L ABG Base Excess 3.0 FiO2 21% Sodium Potassium Chloride Carbon Dioxide Anion Gap BUN Creatinine Est GFR ( Amer) Est GFR (Non-Af Amer) Glucose Calcium Phosphorus Magnesium Total Bilirubin AST ALT Alkaline Phosphatase Total Protein Albumin Prealbumin Triglycerides 172 H Fluid LDH Blood Type Antibody Screen 03/27/18 06:18 WBC RBC Hgb Hct MCV MCH MCHC RDW Plt Count Seg Neutrophils % Lymphocytes % Monocytes % Eosinophils % Basophils % Absolute Neutrophils Absolute Lymphocytes Absolute Monocytes Absolute Eosinophils Absolute Basophils Carbonic Acid HCO3/H2CO3 Ratio ABG pH ABG pCO2 ABG pO2 ABG HCO3 ABG O2 Saturation ABG Base Excess FiO2 Sodium 143.8 Potassium 3.7 Chloride 107 Carbon Dioxide 31 H Anion Gap 6 BUN 15 Creatinine 0.48 L Est GFR ( Amer) > 60 Est GFR (Non-Af Amer) > 60 Glucose 127 H Calcium 9.0 Phosphorus Magnesium Total Bilirubin AST ALT Alkaline Phosphatase Total Protein Albumin Prealbumin Triglycerides Fluid LDH Blood Type Antibody Screen 03/22/18 10:30 Tracheal Aspirate Gram Stain - Final 03/22/18 10:30 Tracheal Aspirate Sputum Culture - Final Yeast, Not Karol Albicans Greatly Reduced Normal Olivia 03/23/18 12:00 Thoracic Fluid AFB Smear Concentration - Final 03/23/18 12:00 Thoracic Fluid Acid Fast Bacilli Smear - Final 03/20/18 10:24 Abdomen - Specimen From Or Fungal Smear - Final 03/20/18 10:24 Abdomen - Specimen From Or Fungal Smear - Final 03/23/18 12:00 Thoracic Fluid Gram Stain - Final 03/23/18 12:00 Thoracic Fluid Body Fluid Culture - Final NO AEROBIC OR ANAEROBIC ORGANISMS RECOVERED 03/16/18 03/18/18 03/18/18 05:06 04:45 19:10 CK-MB (CK-2) 1.10 Troponin I < 0.012 < 0.012 NT-Pro-B Natriuret Pep 513 03/18/18 03/20/18 19:50 12:05 CK-MB (CK-2) Troponin I NT-Pro-B Natriuret Pep 272 400 Impressions: KUB X-Ray 03/11/18 00:00 IMPRESSION: There are mildly dilated small bowel loops throughout the left abdomen, developing ileus or obstruction possible. Hepatobiliary Scan Nuclear Medicine 03/12/18 00:00 IMPRESSION: Bile leak in the gallbladder fossa. Catheter Placement 03/14/18 00:00 IMPRESSION: IMAGE(S) OBTAINED DURING PROCEDURE. Fluoroscopy 03/14/18 00:00 IMPRESSION: IMAGE(S) OBTAINED DURING PROCEDURE. Chest/Abdomen CTA 03/18/18 00:00 IMPRESSION: 1 . Status post cholecystectomy with pneumobilia. Upper abdominal ascites and pneumoperitoneum consistent with postsurgical change. 2. Bibasilar atelectasis with pleural effusions. Acute Abdomen Series 03/20/18 00:00 IMPRESSION: Postop ileus. Retroperitoneal Abscess Drainage 03/20/18 00:00 IMPRESSION: Successful CT-guided placement of drainage catheter. Abdomen/Pelvis CT 03/21/18 00:00 IMPRESSION: Interval endotracheal intubation. Interval worsening of now moderate right, small left pleural effusions and associated atelectasis or consolidation. IMPRESSION: 1. Postoperative findings of cholecystectomy with interval placement of a pigtail surgical drain within a fluid collection about the gallbladder fossa and anterior to the liver. There is near total interval resolution of this fluid collection. An additional surgical drain remains in the gallbladder fossa. 2. There is an interval increase in ascites elsewhere about the abdomen. 3. Anasarca. Chest CT 03/21/18 00:00 IMPRESSION: Interval endotracheal intubation. Interval worsening of now moderate right, small left pleural effusions and associated atelectasis or consolidation. IMPRESSION: 1. Postoperative findings of cholecystectomy with interval placement of a pigtail surgical drain within a fluid collection about the gallbladder fossa and anterior to the liver. There is near total interval resolution of this fluid collection. An additional surgical drain remains in the gallbladder fossa. 2. There is an interval increase in ascites elsewhere about the abdomen. 3. Anasarca. Thoracentesis Ultrasound 03/23/18 12:00 IMPRESSION: Small volume right-sided thoracentesis utilizing ultrasound guidanc e as detailed above. Chest X-Ray 03/27/18 06:00 IMPRESSION: No change. Assessment & Plan - Diagnosis (1) Gallbladder cancer Is this a current diagnosis for this admission?: Yes Plan: Hopefully we can get to outpatient chemotherapy, we will follow.
[2018-03-27] MEDS: FLUCONAZOLE 200 MG/NS RTU 200 MG/100 ML RTUPB IV SCH (09:21)
[2018-03-27] MEDS: LORAZEPAM 1 MG TABLET NG PRN (09:21)
[2018-03-27] MEDS: SALMETEROL XINAFOATE DISKUS 50 MCG/1 DOSE 28 DOSE IH SCH ×2 (09:21→21:05)
[2018-03-27] MEDS: FAMOTIDINE INJ/PF 20 MG/2 ML SDV IV SCH ×2 (09:22→23:47)
[2018-03-27] MEDS: LIDOCAINE 5% (700 MG) TRANSDERMAL ADH..PATCH TP SCH (09:22)
--- NOTE | 2018-03-27 10:48 | RADIOLOGY REPORT (SQ) ---
EXAM DESCRIPTION: CT HEAD WITHOUT COMPLETED DATE/TIME: 03/27/2018 10:36 am REASON FOR STUDY: Confusion C23 MALIGNANT NEOPLASM OF GALLBLADDER COMPARISON: None. TECHNIQUE: Axial images acquired through the brain without intravenous contrast. Images reviewed wi th bone, brain and subdural windows. Additional sagittal and coronal reconstructions were generated. Images stored on PACS. All CT scanners at this facility use dose modulation, iterative reconstruction, and/or weight based d osing when appropriate to reduce radiation dose to as low as reasonably achievable (ALARA). [facility]: Dose Right [facility]: CareDose [facility]: Dose Right [facility]: Teradose 4D [facility]: [employer] RADIATION DOSE: CT Rad equipment meets quality standard of care and radiation dose reduction techniq ues were employed. CTDIvol: 48.6 mGy. DLP: 954 mGy-cm. mGy. LIMITATIONS: None. FINDINGS: VENTRICLES: Normal size and contour. CEREBRUM: No masses. No hemorrhage. No midline shift. No evidence for acute infarction. Normal gra y/white matter differentiation. No areas of low density in the white matter. CEREBELLUM: No masses. No hemorrhage. No alteration of density. No evidence for acute infarction. EXTRAAXIAL SPACES: No fluid collections. No masses. ORBITS AND GLOBE: No intra- or extraconal masses. Normal contour of globe without masses. CALVARIUM: No fracture. PARANASAL SINUSES: No fluid or mucosal thickening. SOFT TISSUES: No mass or hematoma. OTHER: No other significant finding. IMPRESSION: NORMAL BRAIN CT WITHOUT CONTRAST. EVIDENCE OF ACUTE STROKE: NO. COMMENT: Quality ID # 436: Final reports with documentation of one or more dose reduction techniques (e.g., Automated exposure control, adjustment of the mA and/or kV according to patient size, use of iterative reconstruction technique) TECHNICAL DOCUMENTATION: JOB ID: [id number] [employer]- All Rights Reserved Reading location - IP/workstation name: [email or web address]
--- NOTE | 2018-03-27 10:52 | RADIOLOGY REPORT (SQ) ---
EXAM DESCRIPTION: CT CHEST WITHOUT COMPLETED DATE/TIME: 03/27/2018 10:36 am REASON FOR STUDY: pleural effusions, tachypnea, hypoxia C23 MALIGNANT NEOPLASM OF GALLBLADDER COMPARISON: 03/21/2018. TECHNIQUE: CT scan performed of the chest without intravenous contrast. Images reviewed with lung, soft tissue and bone windows. Reconstructed coronal and sagittal MPR images reviewed. All images st ored on PACS. All CT scanners at this facility use dose modulation, iterative reconstruction, and/or weight based d osing when appropriate to reduce radiation dose to as low as reasonably achievable (ALARA). [facility]: Dose Right [facility]: CareDose [facility]: Dose Right [facility]: Teradose 4D [facility]: [employer] RADIATION DOSE: mGy. LIMITATIONS: No technical limitations. FINDINGS: LUNGS AND PLEURA: Moderate bilateral pleural effusions with basilar airspace disease. HILAR AND MEDIASTINAL STRUCTURES: No identified masses or abnormal nodes. No obvious aneurysm. HEART AND VASCULAR STRUCTURES: No aneurysm. No pericardial effusion. UPPER ABDOMEN: See separate report of the CT of the abdomen. THYROID AND OTHER SOFT TISSUES: No masses. No adenopathy. BONES: No significant finding. HARDWARE: Central line. Nasogastric tube. OTHER: No other significant findings. IMPRESSION: MODERATE BILATERAL PLEURAL EFFUSIONS WITH BASILAR ATELECTASIS/ CONSOLIDATION. OVERALL N O SIGNIFICANT CHANGE. TECHNICAL DOCUMENTATION: JOB ID: [id number] Quality ID # [id number]: Final reports with documentation of one or more dose reduction techniques (e.g., Au tomated exposure control, adjustment of the mA and/or kV according to patient size, use of iterative reconstruction technique) 2010 [employer]- All Rights Reserved Reading location - IP/workstation name: [email or web address]
--- NOTE | 2018-03-27 10:58 | RADIOLOGY REPORT (SQ) ---
EXAM DESCRIPTION: CT ABD/PELVIS NO ORAL OR IV COMPLETED DATE/TIME: 03/27/2018 10:36 am REASON FOR STUDY: assess for abscess formation; ascites C23 MALIGNANT NEOPLASM OF GALLBLADDER COMPARISON: 03/21/2018. TECHNIQUE: CT scan of the abdomen and pelvis performed without intravenous or oral contrast. Images reviewed with lung, soft tissue, and bone windows. Reconstructed coronal and sagittal MPR images revi ewed. All images stored on PACS. All CT scanners at this facility use dose modulation, iterative reconstruction, and/or weight based d osing when appropriate to reduce radiation dose to as low as reasonably achievable (ALARA). [facility]: Dose Right [facility]: CareDose [facility]: Dose Right [facility]: Teradose 4D [facility]: [employer] RADIATION DOSE: CT Rad equipment meets quality standard of care and radiation dose reduction techniq ues were employed. CTDIvol: 20.4 - 28.0 mGy. DLP: 2226 mGy-cm.mGy. LIMITATIONS: Motion artifact. FINDINGS: LOWER CHEST: See separate report of the CT of the chest. NON-CONTRASTED LIVER, SPLEEN, ADRENALS: Evaluation limited by lack of IV contrast. No identified sign ificant masses. Biliary stent in the common bile duct with a small amount of air in the intrahepatic biliary system. PANCREAS: No masses. No peripancreatic inflammatory changes. GALLBLADDER: Surgical changes. Percutaneous pigtail catheter and surgical drain are present. No sig nificant residual fluid collection. RIGHT KIDNEY AND URETER: No suspicious masses. Assessment limited by lack of IV contrast. Small pun ctate calcifications. No hydronephrosis or hydroureter. LEFT KIDNEY AND URETER: No suspicious masses. Assessment limited by lack of IV contrast. Upper pole calcification. No hydronephrosis or hydroureter. AORTA AND RETROPERITONEUM: No aneurysm. No retroperitoneal masses or adenopathy. BOWEL AND PERITONEAL CAVITY: Nasogastric tube with the tip in the stomach. No obvious masses or infl ammatory changes. Slightly nodular appearance of the omentum. Small amount of free fluid in the low er abdomen. . APPENDIX: Not visualized. PELVIS, BLADDER, AND ABDOMINAL WALL:No abnormal masses. Small amount of free fluid. Catheter in the bladder. BONES: No significant findings. OTHER: No other significant finding. IMPRESSION: SURGICAL CHANGES IN THE GALLBLADDER FOSSA WITH PERCUTANEOUS DRAINAGE CATHETERS. NO SIGN IFICANT RESIDUAL FLUID COLLECTION. SMALL AMOUNT OF ASCITES. NO FOCAL FLUID COLLECTION CONCERNING FO R DEVELOPING ABSCESS. OTHER INCIDENTAL FINDINGS ABOVE. COMMENT: Quality ID # 436: Final reports with documentation of one or more dose reduction techniques (e.g., Automated exposure control, adjustment of the mA and/or kV according to patient size, use of iterative reconstruction technique) TECHNICAL DOCUMENTATION: JOB ID: [id number] [employer]- All Rights Reserved Reading location - IP/workstation name: [email or web address]
[2018-03-27] MEDS ORDERED: CALCIUM GLUCONATE 1000 MG/10 ML INJ IV ONE (14:33)
--- NOTE | 2018-03-27 19:02 | PDOC PROGRESS REPORT ---
Subjective Progress Note for:: 03/27/18 Subjective:: 63 y.o. F with HTN, asthma and COPD admitted to [facility] 03/01/2018 for c holecystectomy to remove cancerous gallbladder. Within days of surgery there was a large amount of output noted in her JASKARAN drain. The patient underwent an ERCP on 03/14/2018 with CBD stent placement. Within 24hrs she began developing signs of sepsis and the hospitalist service was consulted for medical management. 03/21/[address] Abd/Pelvis showed small amount of free air in RUQ and pneumobilia, small amount of free fluid surrounding the liver and in RUQ, and a small R pleural effusion. The patient was seen on morning rounds while her was present. She was extubated (03/24/18 @1700) and is weaned from BIPAP to nasal cannula. She is fully awake today, A&Ox4, follows all commands. She has been weaned off of Junito-Synephrine and is maintaining adequate blood pressures. Currently on meropenem for sepsis secondary to bile leak following radical cholecystectomy and partial hepatectomy for metastatic gallbladder cancer. Percutaneous drain placed by interventional radiology. Cultures growing Klebsiella pneumoniae, enterococcus, yeast. Santos catheter is in place; diuresing well with paired albumin and Lasix. Patient w/ third spacing (gradual improvement); receiving TPN. Started on enteral feeding yesterday. BM x 2 overnight. Plan to increase enteral feeding rate CT chest done to evaluate pleural effusions, relatively unchanged. CT head to evaluate for metastatic cancer is negative Reason For Visit: GALLBLADDER CANCER Physical Exam Vital Signs: Temp Pulse Resp BP Pulse Ox 101.1 F H 85 30 H 140/69 H 91 L 03/27/18 02:01 03/27/18 00:35 03/27/18 02:01 03/27/18 02:01 03/27/18 02:01 Intake & Output 03/25/18 03/26/18 03/27/18 06:59 06:59 06:59 Intake Total 3234 1400 0750 Output Total 31102 9823 9857 Balance -20454 -2625 -2125 Weight 100.6 kg 98.9 kg General appearance: PRESENT: obese Eye exam: PRESENT: conjunctiva pink, PERRLA Mouth exam: PRESENT: dry mucosa, tongue midline, other - tacky mucosa Neck exam: PRESENT: full ROM Respiratory exam: PRESENT: clear to auscultation christian, decreased breath sounds - diminished b/l bases, unlabored - nasal cannula Cardiovascular exam: PRESENT: +S1, +S2 Pulses: PRESENT: normal radial pulses Vascular exam: PRESENT: pallor GI/Abdominal exam: PRESENT: soft, tenderness - RUQ RLQ - surrounding surgical site Rectal exam: PRESENT: deferred Gentrourinary exam: PRESENT: indwelling catheter Extremities exam: PRESENT: joint swelling, pedal edema - +3 pitting edema, +2 edema - dependent edema to peripheral extremities. ABSENT: full ROM - partial ROM Musculoskeletal exam: ABSENT: full ROM - partial ROM due to debility Neurological exam: PRESENT: alert, awake, oriented to person, oriented to place, oriented to time, oriented to situation Psychiatric exam: PRESENT: appropriate affect Skin exam: PRESENT: dry, pallor, warm, other - RUQ surgical site - stapled, c/d/i. brusing to b/l upper extremities 2/2 venipuncture. ABSENT: intact Results Laboratory Results: 03/26/18 17:47 03/26/18 08:15 03/23/18 03/26/18 03/26/18 12:00 08:15 08:15 WBC 12.2 H RBC 3.10 L Hgb 8.6 L Hct 25.7 L MCV 83 MCH 27.7 MCHC 33.5 RDW 15.0 H Plt Count 506 H Seg Neutrophils % 84.1 H Lymphocytes % 8.0 L Monocytes % 4.5 Eosinophils % 3.0 Basophils % 0.4 Absolute Neutrophils 10.2 H Absolute Lymphocytes 1.0 Absolute Monocytes 0.5 Absolute Eosinophils 0.4 Absolute Basophils 0.1 Carbonic Acid HCO3/H2CO3 Ratio ABG pH ABG pCO2 ABG pO2 ABG HCO3 ABG O2 Saturation ABG Base Excess FiO2 Sodium 138.7 Potassium 3.9 Chloride 104 Carbon Dioxide 26 Anion Gap 9 BUN 14 Creatinine 0.44 L Est GFR ( Amer) > 60 Est GFR (Non-Af Amer) > 60 Glucose 119 H Calcium 8.4 Phosphorus 4.0 Magnesium 1.9 Total Bilirubin 0.6 AST 79 H ALT 65 H Alkaline Phosphatase 334 H Total Protein 4.7 L Albumin 2.4 L Prealbumin 9.3 L Triglycerides Fluid LDH 220 Blood Type Antibody Screen 03/26/18 03/26/18 03/26/18 11:15 14:54 17:47 WBC 14.7 H RBC 3.55 L Hgb 9.8 L Hct 29.7 L MCV 84 MCH 27.7 MCHC 33.0 RDW 15.2 H Plt Count 544 H Seg Neutrophils % Lymphocytes % Monocytes % Eosinophils % Basophils % Absolute Neutrophils Absolute Lymphocytes Absolute Monocytes Absolute Eosinophils Absolute Basophils Carbonic Acid 0.97 L HCO3/H2CO3 Ratio 28:1 ABG pH 7.55 H ABG pCO2 32.3 L ABG pO2 51.4 L ABG HCO3 27.8 H ABG O2 Saturation 91.0 L ABG Base Excess 5.1 FiO2 21% Sodium Potassium Chloride Carbon Dioxide Anion Gap BUN Creatinine Est GFR ( Amer) Est GFR (Non-Af Amer) Glucose Calcium Phosphorus Magnesium Total Bilirubin AST ALT Alkaline Phosphatase Total Protein Albumin Prealbumin Triglycerides Fluid LDH Blood Type A POSITIVE Antibody Screen NEGATIVE 03/26/18 21:55 WBC RBC Hgb Hct MCV MCH MCHC RDW Plt Count Seg Neutrophils % Lymphocytes % Monocytes % Eosinophils % Basophils % Absolute Neutrophils Absolute Lymphocytes Absolute Monocytes Absolute Eosinophils Absolute Basophils Carbonic Acid HCO3/H2CO3 Ratio ABG pH ABG pCO2 ABG pO2 ABG HCO3 ABG O2 Saturation ABG Base Excess FiO2 Sodium Potassium Chloride Carbon Dioxide Anion Gap BUN Creatinine Est GFR ( Amer) Est GFR (Non-Af Amer) Glucose Calcium Phosphorus Magnesium Total Bilirubin AST ALT Alkaline Phosphatase Total Protein Albumin Prealbumin Triglycerides 172 H Fluid LDH Blood Type Antibody Screen 03/22/18 10:30 Tracheal Aspirate Gram Stain - Final 03/22/18 10:30 Tracheal Aspirate Sputum Culture - Final Yeast, Not Karol Albicans Greatly Reduced Normal Olivia 03/23/18 12:00 Thoracic Fluid AFB Smear Concentration - Final 03/23/18 12:00 Thoracic Fluid Acid Fast Bacilli Smear - Final 03/20/18 10:24 Abdomen - Specimen From Or Fungal Smear - Final 03/20/18 10:24 Abdomen - Specimen From Or Fungal Smear - Final 03/23/18 12:00 Thoracic Fluid Gram Stain - Final 03/23/18 12:00 Thoracic Fluid Body Fluid Culture - Final NO AEROBIC OR ANAEROBIC ORGANISMS RECOVERED 03/16/18 03/18/18 03/18/18 05:06 04:45 19:10 CK-MB (CK-2) 1.10 Troponin I < 0.012 < 0.012 NT-Pro-B Natriuret Pep 513 02/10/19 02/12/19 19:50 12:05 CK-MB (CK-2) Troponin I NT-Pro-B Natriuret Pep 897 289 Impressions: KUB X-Ray 03/11/18 00:00 IMPRESSION: There are mildly dilated small bowel loops throughout the left abdomen, developing ileus or obstruction possible. Hepatobiliary Scan Nuclear Medicine 03/12/18 00:00 IMPRESSION: Bile leak in the gallbladder fossa. Catheter Placement 03/14/18 00:00 IMPRESSION: IMAGE(S) OBTAINED DURING PROCEDURE. Fluoroscopy 03/14/18 00:00 IMPRESSION: IMAGE(S) OBTAINED DURING PROCEDURE. Chest/Abdomen CTA 03/18/18 00:00 IMPRESSION: 1 . Status post cholecystectomy with pneumobilia. Upper abdominal ascites and pneumoperitoneum consistent with postsurgical change. 2. Bibasilar atelectasis with pleural effusions. Acute Abdomen Series 03/20/18 00:00 IMPRESSION: Postop ileus. Retroperitoneal Abscess Drainage 03/20/18 00:00 IMPRESSION: Successful CT-guided placement of drainage catheter. Abdomen/Pelvis CT 03/21/18 00:00 IMPRESSION: Interval endotracheal intubation. Interval worsening of now mo derate right, small left pleural effusions and associated atelectasis or consolidation. IMPRESSION: 1. Postoperative findings of cholecystectomy with interval placement of a pigtail surgical drain within a fluid collection about the gallbladder fossa and anterior to the liver. There is near total interval resolution of this fluid collection. An additional surgical drain remains in the gallbladder fossa. 2. There is an interval increase in ascites elsewhere about the abdomen. 3. Anasarca. Chest CT 03/21/18 00:00 IMPRESSION: Interval endotracheal intubation. Interval worsening of now moderate right, small left pleural effusions and associated atelectasis or consolidation. IMPRESSION: 1. Postoperative findings of cholecystectomy with interval placem ent of a pigtail surgical drain within a fluid collection about the gallbladder fossa and anterior to the liver. There is near total interval resolution of this fluid collection. An additional surgical drain remains in the gallbladder fossa. 2. There is an interval increase in ascites elsewhere about the abdomen. 3. Anasarca. Thoracentesis Ultrasound 03/23/18 12:00 IMPRESSION: Small volume right-sided thoracentesis utilizing ultrasound guidance as detailed above. Chest X-Ray 03/25/18 06:00 IMPRESSION: No significant change. Status: Imported from PACS Assessment & Plan - Diagnosis (1) Sepsis Is this a current diagnosis for this admission?: Yes Plan: Initially improved; now concerned this may be worsening. Continues to have high grade temps (102.2), WBCs trending up (13.5-> 10.6-> 14.7). Sepsis secondary to intra-abdominal infection. Evidence by tachycardia, leukocyosis, fever (ZPJC289.2), tachypnea (RR 24-40) No evidence of PNA. Blood cultures (03/16/18, 03/20/18) negative at 5 days Repeat blood cultures to be obtained today for continued fever and worsening leukocytosis Urinalysis negative; repeat is normal. Culture pending. Now s/p percutaneous drain placement. Peritoneal fluid C/S growing klebsiella pneumoniae, enterococcus faecalis, yeast. AFB and Fungal smears pending. Sputum culture shows yeast. Thoracic fluid AFB smear pending. Culture has no growth (final). Repeat CT Chest shows moderate b/l pleural effusions, essentially unchanged. Influenza A/B negative Continue Meropenem, IV Diflucan. Vancomycin discontinued 03/25/18 Infectious Disease is consulted; appreciate Dr. Vela's evaluation and recommendations. Previously received Cipro pre-operatively before Ex Lap, postoperatively received Ancef and Flagyl 03/06-03/13 (2) Respiratory failure Qualifiers: Chronicity: acute Is this a current diagnosis for this admission?: Yes Plan: Improved; tolerating BiPAP; able to come off for short periods. Secondary to poor respiratory effort/splinting stemming from postoperative pain resulting in atelectasis and bilateral pleural effusions; complicated by sepsis. Bilateral pleural effusions on CTA; R>L. Continue to be present on CXR and CT. ProBNP 659, echocardiogram is reassuring. LVEF 65%, normal diastolic function Thoracentesis; only 20 mL out Repeat Chest CT today shows moderate b/l pleural effusions, basically unchanged from previous imaging studies Influenza negative Continue supplemental oxygen, mechanical ventilation as needed to maintain oxygen saturations. Scheduled and as needed nebulizer treatments. Spiriva and Serevent. Continue to diuresis as BP and kidney function allows - lasix and albumin today Pulmonology is consulted; appreciate Dr. Booth's assistance. 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 Tadeo's assistance. Surgery is primary; appreciate Dr. Michaud's expertise with surgical/oncological cases. Enteral feeding initiated yesterday, patient had 2 bowel movements overnight. Plan to increase rate of enteral feeding Overlap with TPN until at goal enteral feeding rate (4) Anxiety Is this a current diagnosis for this admission?: Yes Plan: Patient has a PMH of anxiety Family reports the patient has been significantly anxious while inpatient Ativan 1 mg via NG tube every 4 hours as needed. BuSpar three times daily. (5) Hypotension Is this a current diagnosis for this admission?: Yes Plan: Resolved; blood pressures are now stable Off junito-Synephrine. Secondary to sepsis. Previously provided albumin and Hespan. Repeat albumin again today w/ IV lasix for fluid mobilization. Continue TPN for hypoalbuminemia. (6) Postoperative pain Is this a current diagnosis for this admission?: Yes Plan: Status post cholecystectomy and ERCP with JASKARAN and percutaneous drains in place. Postoperative pain may have contributed to her acute respiratory failure with hypoxia secondary to splinting. Continue providing analgesics as needed. Oxycodone per NG, IV tylenol or toradaol is available. Lidoderm patches, repositioning. (7) Full code status Is this a current diagnosis for this admission?: Yes (8) Anemia Qualifiers: Other causes of anemia: chronic disease, other Is this a current diagnosis for this admission?: Yes Plan: Initial trend down, now stable Now s/p 2 unit PRBC (03/26/2018) No evidence of ongoing bleeding. Will monitor closely and provide additional PRBC for Hgb <8 Registered dietitian is consulted (9) COPD (chronic obstructive pulmonary disease) Qualifiers: COPD type: unspecified COPD Qualified Code(s): J44.9 - Chronic obstructive pulmonary disease, unspecified Is this a current diagnosis for this admission?: Yes Plan: Without exacerbation at this time. Management as above. (10) Tobacco abuse Is this a current diagnosis for this admission?: Yes Plan: Nicotine replacement therapy is offered. (11) Debility Is this a current diagnosis for this admission?: Yes Plan: PT is consulted. Discharge planning is consulted. Family goal is to discharge to home with home health services. - Time Time Spent with patient: 15-24 minutes Total Critical Time (Minutes): 15 Medications reviewed and adjusted accordingly: Yes Anticipated discharge: Home with Homehealth - Inpatient Certification Based on my medical assessment, after consideration of the patient's comorbidities, presenting symptoms, or acuity I expect that the services needed warrant INPATIENT care.: Yes I certify that my determination is in accordance with my understanding of Medicare's requirements for reasonable and necessary INPATIENT services [42 CFR 412.3e].: Yes Medical Necessity: Significant Comorbidiites Make Outpatient Treatment Too Risky, Need For Continuous Telemetry Monitoring, Need for IV Antibiotics - Plan Summary Plan Summary: CT CHEST/ABD/PELVIS
[2018-03-27] MEDS ORDERED: ALBUMIN HUMAN 12.5 GM/50 ML RTUINJ IV ONE (19:30)
[2018-03-27] MEDS ORDERED: FUROSEMIDE INJ/PF 20 MG/2 ML SDV IV ONE (19:30)
[2018-03-27] MEDS: ACETAMINOPHEN 325 MG TABLET NG PRN (21:06)
[2018-03-28] MEDS: LEVALBUTEROL HCL NEB 0.63 MG/3 ML AMPUL NEB SCH ×4 (00:24→23:43)
[2018-03-28] MEDS: INSULIN REG, HUMAN 100 UNIT/ML 3 ML VIAL (PYX) SUBCUT SCH ×4 (00:47→18:05)
[2018-03-28] MEDS: MEROPENEM 1 GM in NORMAL SALINE 50 ML IV SCH ×3 (02:21→18:01)
[2018-03-28] MEDS: BUSPIRONE HCL 10 MG TABLET PO SCH ×3 (06:01→21:50)
--- NOTE | 2018-03-28 06:35 | RADIOLOGY REPORT (SQ) ---
CLINICAL HISTORY: pleural effusions COMPARISON: March 27, 2018. TECHNIQUE: XR CHEST 1 VIEW 03/28/2018 5:00 AM [employer] FINDINGS: The heart is borderline in size. There is bibasilar atelectasis versus airspace disease. There are bilateral pleural effusions. There is no pneumothorax. There are no acute osseous findings. Right IJ central line and NG tube are unchanged. IMPRESSION: No change.
[2018-03-28 06:40] LABS: ABSOLUTE BASOPHILS # (AUTO) 0.1 10^3/uL (0.0-0.2); ABSOLUTE EOSINOPHILS # (AUTO) 0.3 10^3/uL (0.0-0.6); ABSOLUTE LYMPHOCYTES (AUTO) 1.7 10^3/uL (0.5-4.7); ABSOLUTE MONOCYTES (AUTO) 0.9 10^3/uL (0.1-1.4); ABSOLUTE NEUT (AUTO) 13.4 10^3/uL (1.7-8.2); BASOPHILS % (AUTO) 0.9 % (0-2); EOSINOPHILS % (AUTO) 1.8 % (0-6); HEMATOCRIT 25.7 % (36.0-47.0); HEMOGLOBIN 8.6 g/dL (12.0-15.5); LYMPHOCYTES % (AUTO) 10.3 % (13-45); MEAN CORPUSCULAR HEMOGLOBIN 27.9 pg (27.0-33.4); MEAN CORPUSCULAR HGB CONC 33.5 g/dL (32.0-36.0); MEAN CORPUSCULAR VOLUME 83 fl (80-97); MONOCYTES % (AUTO) 5.7 % (3-13); PLATELET COUNT 607 10^3/uL (150-450); RED BLOOD COUNT 3.09 10^6/uL (3.72-5.28); RED CELL DISTRIBUTION WIDTH 14.8 % (11.5-14.0); SEGMENTED NEUTROPHILS % (AUTO) 81.3 % (42-78); TOTAL CELLS COUNTED % (AUTO) 100 %; WHITE BLOOD COUNT 16.4 10^3/uL (4.0-10.5)
[2018-03-28] MEDS: HEPARIN SOD (PORCINE) 5,000 UNIT/ML 1 ML SYRINGE SUBCUT SCH ×3 (06:47→21:50)
[2018-03-28] MEDS: AMINO ACIDS 5%/D25W 1,000 ML IV PRN (06:58)
[2018-03-28 07:05] LABS: ALANINE AMINOTRANSFERASE 71 U/L (9-52); ALBUMIN 2.7 g/dL (3.5-5.0); ALKALINE PHOSPHATASE 346 U/L (38-126); ANION GAP 10 (5-19); ASPARTATE AMINO TRANSFERASE 97 U/L (14-36); BILIRUBIN,DIRECT 0.6 mg/dL (0.0-0.4); BILIRUBIN,TOTAL 1.1 mg/dL (0.2-1.3); BLOOD UREA NITROGEN 17 mg/dL (7-20); CALCIUM 8.6 mg/dL (8.4-10.2); CARBON DIOXIDE 27 mmol/L (22-30); CHLORIDE 105 mmol/L (98-107); GLUCOSE 121 mg/dL (75-110); POTASSIUM 3.3 mmol/L (3.6-5.0); SODIUM 142.2 mmol/L (137-145); TOTAL PROTEIN 5.2 g/dL (6.3-8.2)
--- NOTE | 2018-03-28 07:42 | PDOC PROGRESS REPORT ---
Subjective Progress Note for:: 03/28/18 Reason For Visit: GALLBLADDER CANCER Physical Exam Vital Signs: Temp Pulse Resp BP Pulse Ox 100.8 F H 90 27 H 137/71 H 95 03/28/18 07:01 03/28/18 00:25 03/28/18 07:01 03/28/18 07:00 03/28/18 07:01 Intake & Output 03/27/18 03/28/18 03/29/18 06:59 06:59 06:59 Intake Total 3648 1300 Output Total 4711 2790 Balance -1067 -1490 Weight 94.7 kg General appearance: PRESENT: no acute distress Mouth exam: PRESENT: moist Cardiovascular exam: PRESENT: RRR Pulses: PRESENT: normal radial pulses, normal femoral pulses GI/Abdominal exam: PRESENT: other - debby with min drainage, serous. pigtail small amts of bilous drainage left side of abd indurated, sl erythematous, Extremities exam: PRESENT: full ROM, +1 edema Musculoskeletal exam: PRESENT: full ROM Neurological exam: PRESENT: alert, awake Results Laboratory Results: 03/28/18 06:29 03/28/18 06:29 03/28/18 03/28/18 06:29 06:29 WBC 16.4 H RBC 3.09 L Hgb 8.6 L Hct 25.7 L MCV 83 MCH 27.9 MCHC 33.5 RDW 14.8 H Plt Count 607 H Seg Neutrophils % 81.3 H Lymphocytes % 10.3 L Monocytes % 5.7 Eosinophils % 1.8 Basophils % 0.9 Absolute Neutrophils 13.4 H Absolute Lymphocytes 1.7 Absolute Monocytes 0.9 Absolute Eosinophils 0.3 Absolute Basophils 0.1 Sodium 142.2 Potassium 3.3 L Chloride 105 Carbon Dioxide 27 Anion Gap 10 BUN 17 Creatinine 0.42 L Est GFR ( Amer) > 60 Est GFR (Non-Af Amer) > 60 Glucose 121 H Calcium 8.6 Total Bilirubin 1.1 AST 97 H ALT 71 H Alkaline Phosphatase 346 H Total Protein 5.2 L Albumin 2.7 L 03/23/18 12:00 Pleural Fluid - Right Pleural Effusion Fungal Smear - Final 03/23/18 12:00 Pleural Fluid - Right Pleural Effusion Fungal Smear - Final 03/20/18 10:24 Abdomen - Specimen From Or Fungal Smear - Final 03/20/18 10:24 Abdomen - Specimen From Or Fungal Smear - Final 03/25/18 13:13 Catheterized Urine Urine Culture - Final NO GROWTH 2 DAYS 03/16/18 03/18/18 03/18/18 05:06 04:45 19:10 CK-MB (CK-2) 1.10 Troponin I < 0.012 < 0.012 NT-Pro-B Natriuret Pep 513 03/18/18 03/20/18 19:50 12:05 CK-MB (CK-2) Troponin I NT-Pro-B Natriuret Pep 272 659 Impressions: KUB X-Ray 03/11/18 00:00 IMPRESSION: There are mildly dilated small bowel loops throughout the left abdomen, developing ileus or obstruction possible. Hepatobiliary Scan Nuclear Medicine 03/12/18 00:00 IMPRESSION: Bile leak in the gallbladder fossa. Catheter Placement 03/14/18 00:00 IMPRESSION: IMAGE(S) OBTAINED DURING PROCEDURE. Fluoroscopy 03/14/18 00:00 IMPRESSION: IMAGE(S) OBTAINED DURING PROCEDURE. Chest/Abdomen CTA 03/18/18 00:00 IMPRESSION: 1 . Status post cholecystectomy with pneumobilia. Upper abdominal ascites and pneumoperitoneum consistent with postsurgical change. 2. Bibasilar atelectasis with pleural effusions. Acute Abdomen Series 03/20/18 00:00 IMPRESSION: Postop ileus. Retroperitoneal Abscess Drainage 03/20/18 00:00 IMPRESSION: Successful CT-guided placement of drainage catheter. Thoracentesis Ultrasound 03/23/18 12:00 IMPRESSION: Small volume right-sided thoracentesis utilizing ultrasound guidance as detailed above. Abdomen/Pelvis CT 03/27/18 00:00 IMPRESSION: SURGICAL CHANGES IN THE GALLBLADDER FOSSA WITH PERCUTANEOUS DRAINAGE CATHETERS. NO SIGNIFICANT RESIDUAL FLUID COLLECTION. SMALL AMOUNT OF ASCITES. NO FOCAL FLUID COLLECTION CONCERNING FOR DEVELOPING ABSCESS. OTHER INCIDENTAL FINDINGS ABOVE. Head CT 03/27/18 10:08 IMPRESSION: NORMAL BRAIN CT WITHOUT CONTRAST. EVIDENCE OF ACUTE STROKE: NO. Chest CT 03/27/18 15:00 IMPRESSION: MODERATE BILATERAL PLEURAL EFFUSIONS WITH BASILAR ATELECTASIS/ CONSOLIDATION. OVERALL NO SIGNIFICANT CHANGE. Chest X-Ray 03/28/18 05:00 IMPRESSION: No change. Assessment & Plan - Diagnosis (1) Acute respiratory failure with hypoxia Is this a current diagnosis for this admission?: Yes (3) Bile leak, postoperative Is this a current diagnosis for this admission?: Yes (4) Full code status Is this a current diagnosis for this admission?: Yes - Plan Summary Plan Summary: pt with wbc trending up. intermittent fevers to 101.3 on meorpeniium and diflucan. still requiring bipap at night. ct shows bilat pleural effusions, no residual fluid in abd except min ascites in lower abd. pt still with central line. plan- will order picc line today, still would benifit from tpn swallowing study today, and dc ng if ok will dc central line after picc placed. will start warm compressess to left abd wall induration, will reassess later for i and d
--- NOTE | 2018-03-28 08:40 | PDOC PROGRESS REPORT ---
Subjective Progress Note for:: 03/28/18 Subjective:: Wt ct elevation w/ fever noted, seems to have paniculitis ongoing, CT imaging w/ infective source noted and no major change. Pt having some mild bouts of confusion. Reason For Visit: GALLBLADDER CANCER Physical Exam Vital Signs: Temp Pulse Resp BP Pulse Ox 100.9 F H 99 27 H 140/69 H 95 03/28/18 08:00 03/28/18 08:00 03/28/18 08:00 03/28/18 08:00 03/28/18 08:00 Intake & Output 03/27/18 03/28/18 03/29/18 06:59 06:59 06:59 Intake Total 3648 1720 Output Total 4715 2790 125 Balance -1067 -1070 -125 Weight 94.7 kg 93.7 kg General appearance: PRESENT: no acute distress, well-developed, well-nourished Head exam: PRESENT: atraumatic, normocephalic Eye exam: PRESENT: conjunctiva pink, EOMI, PERRLA. ABSENT: scleral icterus Ear exam: PRESENT: normal external ear exam Mouth exam: PRESENT: moist, tongue midline Neck exam: ABSENT: carotid bruit, JVD, lymphadenopathy, thyromegaly Respiratory exam: PRESENT: clear to auscultation christian. ABSENT: rales, rhonchi, wheezes Cardiovascular exam: PRESENT: RRR. ABSENT: diastolic murmur, rubs, systolic murmur Pulses: PRESENT: normal dorsalis pedis pul Vascular exam: PRESENT: normal capillary refill GI/Abdominal exam: PRESENT: normal bowel sounds, soft. ABSENT: distended, guarding, mass, organolmegaly, rebound, tenderness Rectal exam: PRESENT: deferred Extremities exam: PRESENT: full ROM. ABSENT: calf tenderness, clubbing, pedal edema Neurological exam: PRESENT: alert, awake, oriented to person, oriented to place, oriented to time, oriented to situation, CN II-XII grossly intact. ABSENT: motor sensory deficit Psychiatric exam: PRESENT: appropriate affect, normal mood. ABSENT: homicidal ideation, suicidal ideation Skin exam: PRESENT: dry, intact, warm. ABSENT: cyanosis, rash Results Laboratory Results: 03/28/18 06:29 03/28/18 06:29 03/28/18 03/28/18 06:29 06:29 WBC 16.4 H RBC 3.09 L Hgb 8.6 L Hct 25.7 L MCV 83 MCH 27.9 MCHC 33.5 RDW 14.8 H Plt Count 607 H Seg Neutrophils % 81.3 H Lymphocytes % 10.3 L Monocytes % 5.7 Eosinophils % 1.8 Basophils % 0.9 Absolute Neutrophils 13.4 H Absolute Lymphocytes 1.7 Absolute Monocytes 0.9 Absolute Eosinophils 0.3 Absolute Basophils 0.1 Sodium 142.2 Potassium 3.3 L Chloride 105 Carbon Dioxide 27 Anion Gap 10 BUN 17 Creatinine 0.42 L Est GFR ( Amer) > 60 Est GFR (Non-Af Amer) > 60 Glucose 121 H Calcium 8.6 Total Bilirubin 1.1 AST 97 H ALT 71 H Alkaline Phosphatase 346 H Total Protein 5.2 L Albumin 2.7 L 03/23/18 12:00 Pleural Fluid - Right Pleural Effusion Fungal Smear - Final 03/23/18 12:00 Pleural Fluid - Right Pleural Effusion Fungal Smear - Final 03/20/18 10:24 Abdomen - Specimen From Or Fungal Smear - Final 03/20/18 10:24 Abdomen - Specimen From Or Fungal Smear - Final 03/25/18 13:13 Catheterized Urine Urine Culture - Final NO GROWTH 2 DAYS 03/16/18 03/18/18 03/18/18 05:06 04:45 19:10 CK-MB (CK-2) 1.10 Troponin I < 0.012 < 0.012 NT-Pro-B Natriuret Pep 513 03/18/18 03/20/18 19:50 12:05 CK-MB (CK-2) Troponin I NT-Pro-B Natriuret Pep 272 659 Impressions: KUB X-Ray 03/11/18 00:00 IMPRESSION: There are mildly dilated small bowel loops throughout the left abdomen, developing ileus or obstruction possible. Hepatobiliary Scan Nuclear Medicine 03/12/18 00:00 IMPRESSION: Bile leak in the gallbladder fossa. Catheter Placement 03/14/18 00:00 IMPRESSION: IMAGE(S) OBTAINED DURING PROCEDURE. Fluoroscopy 03/14/18 00:00 IMPRESSION: IMAGE(S) OBTAINED DURING PROCEDURE. Chest/Abdomen CTA 03/18/18 00:00 IMPRESSION: 1 . Status post cholecystectomy with pneumobilia. Upper abdominal ascites and pneumoperitoneum consistent with postsurgical change. 2. Bibasilar atelectasis with pleural effusions. Acute Abdomen Series 03/20/18 00:00 IMPRESSION: Postop ileus. Retroperitoneal Abscess Drainage 03/20/18 00:00 IMPRESSION: Successful CT-guided placement of drainage catheter. Thoracentesis Ultrasound 03/23/18 12:00 IMPRESSION: Small volume right-sided thoracentesis utilizing ultrasound guidance as detailed above. Abdomen/Pelvis CT 03/27/18 00:00 IMPRESSION: SURGICAL CHANGES IN THE GALLBLADDER FOSSA WITH PERCUTANEOUS DRAINA GE CATHETERS. NO SIGNIFICANT RESIDUAL FLUID COLLECTION. SMALL AMOUNT OF ASCITES. NO FOCAL FLUID COLLECTION CONCERNING FOR DEVELOPING ABSCESS. OTHER INCIDENTAL FINDINGS ABOVE. Head CT 03/27/18 10:08 IMPRESSION: NORMAL BRAIN CT WITHOUT CONTRAST. EVIDENCE OF ACUTE STROKE: NO. Chest CT 03/27/18 15:00 IMPRESSION: MODERATE BILATERAL PLEURAL EFFUSIONS WITH BASILAR ATELECTASIS/ CONSOLIDATION. OVERALL NO SIGNIFICANT CHANGE. Chest X-Ray 03/28/18 05:00 IMPRESSION: No change. Assessment & Plan - Diagnosis (1) Gallbladder cancer Is this a current diagnosis for this admission?: Yes Plan: Cont to follow closely. Had discussion w/ pt and family today. - Time Time Spent with patient: 35 or more minutes
[2018-03-28] MEDS ORDERED: ALBUMIN HUMAN 12.5 GM/50 ML RTUINJ IV ONE (09:00)
[2018-03-28] MEDS ORDERED: FUROSEMIDE INJ/PF 40 MG/4 ML SDV IV ONE (09:30)
[2018-03-28] MEDS: TIOTROPIUM BROMIDE DPI 5 CAP/KIT (18 MCG/CAP) IH SCH (09:36)
[2018-03-28] MEDS: POTASSI CL 20 MEQ/50 ML RIDER 20 MEQ/50 ML RTUPB IV SCH ×2 (09:57→11:33)
[2018-03-28] MEDS: FLUCONAZOLE 200 MG/NS RTU 200 MG/100 ML RTUPB IV SCH (10:24)
[2018-03-28] MEDS: FAMOTIDINE INJ/PF 20 MG/2 ML SDV IV SCH ×2 (10:24→21:50)
[2018-03-28] MEDS: LIDOCAINE 5% (700 MG) TRANSDERMAL ADH..PATCH TP SCH (10:25)
[2018-03-28] MEDS: SALMETEROL XINAFOATE DISKUS 50 MCG/1 DOSE 28 DOSE IH SCH ×2 (10:35→21:50)
--- NOTE | 2018-03-28 11:59 | RADIOLOGY REPORT (SQ) ---
EXAM DESCRIPTION: PICC INSERTION; U/S GUIDE FOR VASCULAR ACCESS COMPLETED DATE/TIME: 03/28/2018 11:36 am REASON FOR STUDY: residential tpn; IV ACCESS C23 MALIGNANT NEOPLASM OF GALLBLADDER COMPARISON: None. FLUOROSCOPY TIME: None. Bed side. 4 images saved to PACS. TECHNIQUE: Fluoroscopic and ultrasound guided PICC placement. LIMITATIONS: None. PROCEDURE: After written consent and assessment were obtained, the patient was brought into the fluo roscopy room and placed supine on the table. Ultrasound evaluation of potential access sites were per formed. After successfully identifying a patent left basilic vein, the left arm was prepped and drape d in a sterile fashion along with the ultrasound probe. The entry site was anesthetized with 1% lidoc gigi. A 21 gauge 7 cm needle was advanced through the skin and into the basilic vein under live ultra sound guidance. An ultrasound image was saved to PACS confirming access site. A .018 guide wire was then inserted through the needle and into the venous system. The needle was then removed and an 11 b lade scalpel was used to make a 1cm skin incision. A 5 fr peel-away sheath was advanced over the wir e and into the venous system. A measurement was then made using the existing wire and live fluoroscop ic guidance. The wire was then removed and trimmed. The PICC was advanced through the peel-away sheat h and into the venous system. The peel-away sheath was removed and the catheter was adhered to the pa tients arm with a stat lock. The catheter was then aspirated and flushed and a sterile bandage was pl aced over the access site. A fluoroscopic spot image was saved to PACS confirming the catheter tip w ithin the superior vena cava. IMPRESSION: SUCCESSFUL PLACEMENT OF A 5 FR DUAL LUMEN 35 CM PICC IN THE LEFT BASILIC VEIN. COMMENT: Patient medication list reviewed: Yes- Quality ID# [id number]:Eligible professional attests to doc umenting in the medical record they obtained, updated, or reviewed the patient's current medications. . Quality ID 145: Final reports for procedures using fluoroscopy that document radiation exposure yanique raquel, or exposure time and number of fluorographic images (if radiation exposure indices are not avail able) Quality ID #76: The patient was prepped and draped using maximum sterile barrier technique including cap, mask, sterile gown, sterile gloves, a large sterile sheet, hand hygiene, and 2% Chlorhexidine fo r cutaneous antisepsis. When ultrasound is used, sterile ultrasound techniques are followed requiring sterile gel and sterile probes. TECHNICAL DOCUMENTATION: JOB ID: [id number] [employer]- All Rights Reserved rev-06/23 Reading location - IP/workstation name: [email or web address]
[2018-03-28] MEDS: ONDANSETRON HCL INJ/PF 4 MG/2 ML SDV IV PRN (18:01)
--- NOTE | 2018-03-28 18:42 | Progress Note ---
Provider Note Provider Note: ID Consult Note Asked by Magda Morales NP, to review patient's chart. Pt not seen or examined. Ms. 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 Post- operatively she had bile leak requiring ERCP, CBD stent placement, drain placement. She developed fever, tachycardia, tachypnea, required intubation. Respiratory failure was attributed to third spacing, pleural effusions, poor effort limited by pain, associated atelectasis. She was treated for intraabdominal source of infection. She received vancomycin from 03/17-03/25, meropenem 03/19-present 03/28, and fluconazole 03/21-present 03/28. most recent imaging CT chest not significantly changed - b/l effusions with basilar consolidation/atelectasis. CT abdomen w/o contrast showed no significant residual fluid collection about gallbladder. She was able to be extubated on 03/24, weaned off of pressors, weaned from Bipap to NC during the day. Both drains have minimal output. She has continued to have fever for the past 10 days despite clinical improvement and increasing leukocytosis and thrombocytosis. Recent UCx negative. Repeat BCx no growth for 24h. Most recently, she was also noted to have L side of abdomen indurated and slightly erythematous. Impression/Recommendations Pt had drains placed, no residual collections, recent repeat CT scan reassuring. Should not need further meropenem/fluconazole. If there is truly an underlying infection, it has not been identified despite fairly complete investigative efforts. Fact that leukocytosis and fever have continued despite this broad spectrum activity and clinical stability/improvement suggests potential noninfectious etiology. Recommend stopping meropenem and fluconazole and continuing to evaluate patient clinically for any localizing signs/symptoms. Consider repeat blood cultures once off antimicrobial agents for at least 1-2 days if still febrile. Azam Vela MD [facility] pager [phone]
--- NOTE | 2018-03-28 20:51 | PDOC PROGRESS REPORT ---
Subjective Progress Note for:: 03/28/18 Subjective:: 63 y.o. F with HTN, asthma and COPD admitted to [facility] 03/01/2018 for c holecystectomy to remove cancerous gallbladder. Within days of surgery there was a large amount of output noted in her AJSKARAN drain. The patient underwent an ERCP on 03/14/2018 with CBD stent placement. Within 24hrs she began developing signs of sepsis and the hospitalist service was consulted for medical management. The patient was seen on morning rounds while her was present. She was extubated (03/24/18 @1700) and is weaned to BIPAP (QHS) and nasal cannula during the day. She is fully awake today, A&Ox4, follows all commands. Some confusion today, patient requesting to bedside She has been weaned off of Robert-Synephrine and is maintaining adequate blood pressures. Currently on meropenem for sepsis secondary to bile leak following radical cholecystectomy and partial hepatectomy for metastatic gallbladder cancer. Percutaneous drain placed by interventional radiology. Cultures growing Klebsiella pneumoniae, enterococcus, yeast. Santos catheter is in place; diuresing well with paired albumin and Lasix. Patient w/ third spacing (gradual improvement); receiving TPN. Started on enteral feeding yesterday. BM x 2 overnight. Plan to increase enteral feeding rate CT chest done to evaluate pleural effusions, relatively unchanged. CT head to evaluate for metastatic cancer is negative Plan for swallow evaluation toDAY, plan to start PO diet if patient able to tolerate Continue diuresis with LASIX and albumin Unfortunately, the patient's leukocytosis is worsening but her clinical picture is improving. Will reach out to Dr. Stevan Vela (ID) regarding antibiotic se lection. Reason For Visit: GALLBLADDER CANCER Physical Exam Vital Signs: Temp Pulse Resp BP Pulse Ox 100.9 F H 69 27 H 132/70 H 98 03/28/18 16:00 03/28/18 16:31 03/28/18 16:31 03/28/18 16:00 03/28/18 16:31 Intake & Output 03/27/18 03/28/18 03/29/18 06:59 06:59 06:59 Intake Total 3648 1720 179 Output Total 7848 9139 1411 Balance -3037 -2098 -3073 Weight 94.7 kg 93.7 kg General appearance: PRESENT: morbidly obese Eye exam: PRESENT: conjunctiva pink, PERRLA Mouth exam: PRESENT: tongue midline. ABSENT: moist - DRY TACKY MUCOSA Neck exam: PRESENT: full ROM Respiratory exam: PRESENT: decreased breath sounds - BILATERAL LOWER LUNG BASES, symmetrical, unlabored Cardiovascular exam: PRESENT: RRR Pulses: PRESENT: normal radial pulses GI/Abdominal exam: PRESENT: soft, other - DEPENDENT EDEMA AND ERYTHEMA TO L ABDOMINAL WALL. CANNOT PALPATE MASS/ABSCESS/HEMATOMA/ETC.. ABSENT: distended, guarding Rectal exam: PRESENT: deferred Extremities exam: PRESENT: joint swelling, pedal edema, +1 edema. ABSENT: full ROM - PARTIAL ROM 2/2 DEBILITY Musculoskeletal exam: ABSENT: ambulatory, full ROM - PARTIAL ROM 2/2 DEBILITY Neurological exam: PRESENT: alert, awake, oriented to person, oriented to place, oriented to time, oriented to situation Psychiatric exam: PRESENT: anxious Skin exam: PRESENT: dry, warm Results Laboratory Results: 03/28/18 06:29 03/28/18 06:29 03/28/18 03/28/18 03/28/18 06:29 06:29 06:29 WBC 16.4 H RBC 3.09 L Hgb 8.6 L Hct 25.7 L MCV 83 MCH 27.9 MCHC 33.5 RDW 14.8 H Plt Count 607 H Seg Neutrophils % 81.3 H Lymphocytes % 10.3 L Monocytes % 5.7 Eosinophils % 1.8 Basophils % 0.9 Absolute Neutrophils 13.4 H Absolute Lymphocytes 1.7 Absolute Monocytes 0.9 Absolute Eosinophils 0.3 Absolute Basophils 0.1 Sodium 142.2 Potassium 3.3 L Chloride 105 Carbon Dioxide 27 Anion Gap 10 BUN 17 Creatinine 0.42 L Est GFR ( Amer) > 60 Est GFR (Non-Af Amer) > 60 Glucose 121 H Calcium 8.6 Magnesium 1.9 Total Bilirubin 1.1 AST 97 H ALT 71 H Alkaline Phosphatase 346 H Total Protein 5.2 L Albumin 2.7 L 03/20/18 10:24 Abdomen - Specimen From Or Fungal Smear - Final 03/20/18 10:24 Abdomen - Specimen From Or Fungal Smear - Final 03/23/18 12:00 Pleural Fluid - Right Pleural Effusion Fungal Smear - Final 03/23/18 12:00 Pleural Fluid - Right Pleural Effusion Fungal Smear - Final 03/16/18 03/18/18 03/18/18 05:06 04:45 19:10 CK-MB (CK-2) 1.10 Troponin I < 0.012 < 0.012 NT-Pro-B Natriuret Pep 513 03/18/18 03/20/18 19:50 12:05 CK-MB (CK-2) Troponin I NT-Pro-B Natriuret Pep 272 659 Impressions: KUB X-Ray 03/11/18 00:00 IMPRESSION: There are mildly dilated small bowel loops throughout the left abdomen, developing ileus or obstruction possible. Hepatobiliary Scan Nuclear Medicine 03/12/18 00:00 IMPRESSION: Bile leak in the gallbladder fossa. Catheter Placement 03/14/18 00:00 IMPRESSION: IMAGE(S) OBTAINED DURING PROCEDURE. Fluoroscopy 03/14/18 00:00 IMPRESSION: IMAGE(S) OBTAINED DURING PROCEDURE. Chest/Abdomen CTA 03/18/18 00:00 IMPRESSION: 1 . Status post cholecystectomy with pneumobilia. Upper abdominal ascites and pneumoperitoneum consistent with postsurgical change. 2. Bibasilar atelectasis with pleural effusions. Acute Abdomen Series 03/20/18 00:00 IMPRESSION: Postop ileus. Retroperitoneal Abscess Drainage 03/20/18 00:00 IMPRESSION: Successful CT-guided placement of drainage catheter. Thoracentesis Ultrasound 03/23/18 12:00 IMPRESSION: Small volume right-sided thoracentesis utilizing ultrasound guidance as detailed above. Abdomen/Pelvis CT 03/27/18 00:00 IMPRESSION: SURGICAL CHANGES IN THE GALLBLADDER FOSSA WITH PERCUTANEOUS DRAINAGE CATHETERS. NO SIGNIFICANT RESIDUAL FLUID COLLECTION. SMALL AMOUNT OF ASCITES. NO FOCAL FLUID COLLECTION CONCERNING FOR DEVELOPING ABSCESS. OTHER INCIDENTAL FINDINGS ABOVE. Head CT 03/27/18 10:08 IMPRESSION: NORMAL BRAIN CT WITHOUT CONTRAST. EVIDENCE OF ACUTE STROKE: NO. Chest CT 03/27/18 15:00 IMPRESSION: MODERATE BILATERAL PLEURAL EFFUSIONS WITH BASILAR ATELECTASIS/ C ONSOLIDATION. OVERALL NO SIGNIFICANT CHANGE. Interventional Vascular Procedure 03/28/18 00:00 IMPRESSION: SUCCESSFUL PLACEMENT OF A 5 FR DUAL LUMEN 35 CM PICC IN THE LEFT BASILIC VEIN. PICC Line Insertion 03/28/18 00:00 IMPRESSION: SUCCESSFUL PLACEMENT OF A 5 FR DUAL LUMEN 35 CM PICC IN THE LEFT BASILIC VEIN. Chest X-Ray 03/28/18 05:00 IMPRESSION: No change. Status: Imported from PACS Assessment & Plan - Diagnosis (1) Sepsis Is this a current diagnosis for this admission?: Yes Plan: Initially improved; now concerned this may be worsening. Continues to have high grade temps (102.2), WBCs trending up (13.5-> 10.6-> 14.7->16.3). Sepsis secondary to intra-abdominal infection. Evidence by tachycardia, leukocyosis, fever (HOUB858.2), tachypnea (RR 24-40) No evidence of PNA. Blood cultures (03/16/18, 03/20/18) negative at 5 days Repeat blood cultures pending for continued fever and worsening leukocytosis Urinalysis negative; repeat is normal. Culture pending. Now s/p percutaneous drain placement. Peritoneal fluid C/S growing klebsiella pneumoniae, enterococcus faecalis, yeast. AFB and Fungal smears pending. Sputum culture shows yeast. Thoracic fluid AFB smear pending. Culture has no growth (final). Repeat CT Chest shows moderate b/l pleural effusions, essentially unchanged. Influenza A/B negative Continue Meropenem, IV Diflucan. Vancomycin discontinued 03/25/18 Infectious Disease is consulted 03/27; appreciate Dr. Vela's evaluation and recommendations. Previously received Cipro pre-operatively before Ex Lap, postoperatively received Ancef and Flagyl 03/06-03/13 (2) Respiratory failure Qualifiers: Chronicity: acute Is this a current diagnosis for this admission?: Yes Plan: Improved; tolerating BiPAP; able to come off for short periods. Secondary to poor respiratory effort/splinting stemming from postoperative pain resulting in atelectasis and bilateral pleural effusions; complicated by sepsis. Bilateral pleural effusions on CTA; R>L. Continue to be present on CXR and CT. ProBNP 659, echocardiogram is reassuring. LVEF 65%, normal diastolic function Thoracentesis; only 20 mL out Repeat Chest CT 03/27 shows moderate b/l pleural effusions, basically unchanged from previous imaging studies Influenza negative Continue supplemental oxygen, mechanical ventilation as needed to maintain oxygen saturations. Scheduled and as needed nebulizer treatments. Spiriva and Serevent. Continue to diuresis as BP and kidney function allows - lasix and albumin today Pulmonology is consulted; appreciate Dr. Booth's assistance. 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 Tadeo's assistance. Surgery is primary; appreciate Dr. Michaud's expertise with surgical/oncological cases. Enteral feeding initiated yesterday, patient had 2 bowel movements overnight. Swallow evaluation today, patient able to tolerate solid foods, plan for diet initiation Carb meal pattern with thin iquids, no straws Overlap with TPN for hypoalbuminemia (4) Anxiety Is this a current diagnosis for this admission?: Yes Plan: Patient has a PMH of anxiety Family reports the patient has been significantly anxious while inpatient Ativan 1 mg via NG tube every 4 hours as needed. BuSpar three times daily. (5) Hypotension Is this a current diagnosis for this admission?: Yes Plan: Resolved; blood pressures are now stable Off robert-Synephrine. Secondary to sepsis. Previously provided albumin and Hespan. Repeat albumin again today w/ IV lasix for fluid mobilization. Continue TPN for hypoalbuminemia. (6) Postoperative pain Is this a current diagnosis for this admission?: Yes Plan: Status post cholecystectomy and ERCP Postoperative pain may have contributed to her acute respiratory failure with hypoxia secondary to splinting. Continue providing analgesics as needed. Oxycodone per NG, IV tylenol or toradaol is available. Lidoderm patches, repositioning. (7) Full code status Is this a current diagnosis for this admission?: Yes (8) Anemia Qualifiers: Other causes of anemia: chronic disease, other Is this a current diagnosis for this admission?: Yes Plan: Initial trend down, now stable Now s/p 2 unit PRBC (03/26/2018) No evidence of ongoing bleeding. Will monitor closely and provide additional PRBC for Hgb <8 Registered dietitian is consulted (9) COPD (chronic obstructive pulmonary disease) Qualifiers: COPD type: unspecified COPD Qualified Code(s): J44.9 - Chronic obstructive pulmonary disease, unspecified Is this a current diagnosis for this admission?: Yes Plan: Without exacerbation at this time. Management as above. (10) Tobacco abuse Is this a current diagnosis for this admission?: Yes Plan: Nicotine replacement therapy is offered. (11) Debility Is this a current diagnosis for this admission?: Yes Plan: PT/OT is consulted. Patient able to sit on edge of bed. Discharge planning is consulted. Family goal is to discharge to home with home health services. - Time Time Spent with patient: 15-24 minutes Medications reviewed and adjusted accordingly: Yes Anticipated discharge: Home with Homehealth, Acute Rehab
[2018-03-28] MEDS: PHARMACY COMMUNICATION ORDER MC SCH (21:50)
[2018-03-28] MEDS: ACETAMINOPHEN 325 MG TABLET NG PRN (23:30)
[2018-03-29] MEDS: INSULIN REG, HUMAN 100 UNIT/ML 3 ML VIAL (PYX) SUBCUT SCH ×4 (01:29→17:42)
[2018-03-29] MEDS: MEROPENEM 1 GM in NORMAL SALINE 50 ML IV SCH ×3 (01:30→18:57)
[2018-03-29 04:36] LABS: ABSOLUTE BASOPHILS # (AUTO) 0.1 10^3/uL (0.0-0.2); ABSOLUTE EOSINOPHILS # (AUTO) 0.3 10^3/uL (0.0-0.6); ABSOLUTE LYMPHOCYTES (AUTO) 1.7 10^3/uL (0.5-4.7); ABSOLUTE MONOCYTES (AUTO) 0.8 10^3/uL (0.1-1.4); ABSOLUTE NEUT (AUTO) 11.5 10^3/uL (1.7-8.2); BASOPHILS % (AUTO) 0.5 % (0-2); EOSINOPHILS % (AUTO) 2.4 % (0-6); HEMATOCRIT 23.1 % (36.0-47.0); LYMPHOCYTES % (AUTO) 11.7 % (13-45); MEAN CORPUSCULAR HEMOGLOBIN 28.3 pg (27.0-33.4); MEAN CORPUSCULAR HGB CONC 33.8 g/dL (32.0-36.0); MEAN CORPUSCULAR VOLUME 84 fl (80-97); MONOCYTES % (AUTO) 5.7 % (3-13); PLATELET COUNT 556 10^3/uL (150-450); RED BLOOD COUNT 2.75 10^6/uL (3.72-5.28); RED CELL DISTRIBUTION WIDTH 15.2 % (11.5-14.0); SEGMENTED NEUTROPHILS % (AUTO) 79.7 % (42-78); TOTAL CELLS COUNTED % (AUTO) 100 %; WHITE BLOOD COUNT 14.4 10^3/uL (4.0-10.5)
[2018-03-29 04:41] LABS: ALANINE AMINOTRANSFERASE 112 U/L (9-52); ALBUMIN 2.6 g/dL (3.5-5.0); ALKALINE PHOSPHATASE 360 U/L (38-126); ANION GAP 7 (5-19); ASPARTATE AMINO TRANSFERASE 143 U/L (14-36); BILIRUBIN,DIRECT 0.7 mg/dL (0.0-0.4); BILIRUBIN,TOTAL 1.2 mg/dL (0.2-1.3); BLOOD UREA NITROGEN 19 mg/dL (7-20); CALCIUM 8.6 mg/dL (8.4-10.2); CARBON DIOXIDE 29 mmol/L (22-30); CHLORIDE 105 mmol/L (98-107); GLUCOSE 173 mg/dL (75-110); POTASSIUM 3.7 mmol/L (3.6-5.0); SODIUM 141.1 mmol/L (137-145); TOTAL PROTEIN 5.1 g/dL (6.3-8.2)
[2018-03-29 04:43] LABS: HEMOGLOBIN 7.8 g/dL (12.0-15.5)
[2018-03-29 04:50] LABS: PREALBUMIN 8.7 mg/dL (17.6-36.0)
[2018-03-29] MEDS: HEPARIN SOD (PORCINE) 5,000 UNIT/ML 1 ML SYRINGE SUBCUT SCH ×3 (05:25→21:15)
[2018-03-29] MEDS: BUSPIRONE HCL 10 MG TABLET PO SCH ×3 (05:25→21:14)
[2018-03-29] MEDS: TIOTROPIUM BROMIDE DPI 5 CAP/KIT (18 MCG/CAP) IH SCH (05:25)
[2018-03-29 06:18] LABS: ARTERIAL BLOOD FIO2 2L; ARTERIAL BLOOD H2CO3 1.13 mmol/L (1.05-1.35); ARTERIAL BLOOD HCO3 28.5 mmol/L (20-24); ARTERIAL BLOOD O2 SATURATION 92.3 % (94-98); ARTERIAL BLOOD PCO2 37.6 mmHg (35-45); ARTERIAL BLOOD PO2 57.7 mmHg (80-100); ARTERIAL BLOOD TOTAL CO2 29.7 mmol/L (21-25)
[2018-03-29] MEDS: AMINO ACIDS 5%/D25W 1,000 ML IV PRN (07:16)
--- NOTE | 2018-03-29 08:05 | PDOC PROGRESS REPORT ---
Subjective Progress Note for:: 03/29/18 Subjective:: No acute events overnight, patient apparently was taken in a wheelchair around ICU yesterday, was up in a chair for 3 hours this morning. Reason For Visit: GALLBLADDER CANCER Physical Exam Vital Signs: Temp Pulse Resp BP Pulse Ox 99.3 F 85 31 H 131/69 H 95 03/29/18 05:00 03/28/18 23:45 03/29/18 06:00 03/29/18 04:01 03/29/18 06:00 Intake & Output 03/28/18 03/29/18 03/30/18 06:59 06:59 06:59 Intake Total 1720 1379 Output Total 2790 3070 Balance -1070 -1691 Weight 93.7 kg 91.6 kg General appearance: PRESENT: no acute distress, well-developed, well-nourished Head exam: PRESENT: atraumatic, normocephalic Eye exam: PRESENT: conjunctiva pink, EOMI, PERRLA. ABSENT: scleral icterus Ear exam: PRESENT: normal external ear exam Mouth exam: PRESENT: moist, tongue midline Neck exam: ABSENT: carotid bruit, JVD, lymphadenopathy, thyromegaly Respiratory exam: PRESENT: clear to auscultation christian. ABSENT: rales, rhonchi, wheezes Cardiovascular exam: PRESENT: RRR. ABSENT: diastolic murmur, rubs, systolic murmur Pulses: PRESENT: normal dorsalis pedis pul Vascular exam: PRESENT: normal capillary refill GI/Abdominal exam: PRESENT: normal bowel sounds, soft. ABSENT: distended, guarding, mass, organolmegaly, rebound, tenderness Rectal exam: PRESENT: deferred Extremities exam: PRESENT: full ROM. ABSENT: calf tenderness, clubbing, pedal edema Neurological exam: PRESENT: alert, awake, oriented to person, oriented to place, oriented to time, oriented to situation, CN II-XII grossly intact. ABSENT: motor sensory deficit Psychiatric exam: PRESENT: appropriate affect, normal mood. ABSENT: homicidal ideation, suicidal ideation Skin exam: PRESENT: dry, intact, warm. ABSENT: cyanosis, rash Results Laboratory Results: 03/29/18 03:59 03/29/18 03:59 03/28/18 03/28/18 03/29/18 06:29 16:40 03:59 WBC 14.4 H RBC 2.75 L Hgb 7.8 L Hct 23.1 L MCV 84 MCH 28.3 MCHC 33.8 RDW 15.2 H Plt Count 556 H Seg Neutrophils % 79.7 H Lymphocytes % 11.7 L Monocytes % 5.7 Eosinophils % 2.4 Basophils % 0.5 Absolute Neutrophils 11.5 H Absolute Lymphocytes 1.7 Absolute Monocytes 0.8 Absolute Eosinophils 0.3 Absolute Basophils 0.1 Carbonic Acid HCO3/H2CO3 Ratio ABG pH ABG pCO2 ABG pO2 ABG HCO3 ABG O2 Saturation ABG Base Excess FiO2 Sodium Potassium Chloride Carbon Dioxide Anion Gap BUN Creatinine Est GFR ( Amer) Est GFR (Non-Af Amer) Glucose Calcium Phosphorus Magnesium 1.9 Total Bilirubin AST ALT Alkaline Phosphatase Ammonia < 8.7 L Total Protein Albumin Prealbumin 03/29/18 03/29/18 03:59 06:06 WBC RBC Hgb Hct MCV MCH MCHC RDW Plt Count Seg Neutrophils % Lymphocytes % Monocytes % Eosinophils % Basophils % Absolute Neutrophils Absolute Lymphocytes Absolute Monocytes Absolute Eosinophils Absolute Basophils Carbonic Acid 1.13 HCO3/H2CO3 Ratio 25:1 ABG pH 7.50 H ABG pCO2 37.6 ABG pO2 57.7 L ABG HCO3 28.5 H ABG O2 Saturation 92.3 L ABG Base Excess 5.0 FiO2 2L Sodium 141.1 Potassium 3.7 Chloride 105 Carbon Dioxide 29 Anion Gap 7 BUN 19 Creatinine 0.42 L Est GFR ( Amer) > 60 Est GFR (Non-Af Amer) > 60 Glucose 173 H Calcium 8.6 Phosphorus 4.0 Magnesium 2.1 Total Bilirubin 1.2 AST 143 H ALT 112 H Alkaline Phosphatase 360 H Ammonia Total Protein 5.1 L Albumin 2.6 L Prealbumin 8.7 L 03/20/18 10:24 Abdomen - Specimen From Or Fungal Smear - Final 03/20/18 10:24 Abdomen - Specimen From Or Fungal Smear - Final 03/16/18 03/18/18 03/18/18 05:06 04:45 19:10 CK-MB (CK-2) 1.10 Troponin I < 0.012 < 0.012 NT-Pro-B Natriuret Pep 513 03/18/18 03/20/18 19:50 12:05 CK-MB (CK-2) Troponin I NT-Pro-B Natriuret Pep 272 659 Impressions: KUB X-Ray 03/11/18 00:00 IMPRESSION: There are mildly dilated small bowel loops throughout the left abdomen, developing ileus or obstruction possible. Hepatobiliary Scan Nuclear Medicine 03/12/18 00:00 IMPRESSION: Bile leak in the gallbladder fossa. Catheter Placement 03/14/18 00:00 IMPRESSION: IMAGE(S) OBTAINED DURING PROCEDURE. Fluoroscopy 03/14/18 00:00 IMPRESSION: IMAGE(S) OBTAINED DURING PROCEDURE. Chest/Abdomen CTA 03/18/18 00:00 IMPRESSION: 1 . Status post cholecystectomy with pneumobilia. Upper abdominal ascites and pneumoperitoneum consistent with postsurgical change. 2. Bibasilar atelectasis with pleural effusions. Acute Abdomen Series 03/20/18 00:00 IMPRESSION: Postop ileus. Retroperitoneal Abscess Drainage 03/20/18 00:00 IMPRESSION: Successful CT-guided placement of drainage catheter. Thoracentesis Ultrasound 03/23/18 12:00 IMPRESSION: Small volume right-sided thoracentesis utilizing ultrasound guidance as detailed above. Abdomen/Pelvis CT 03/27/18 00:00 IMPRESSION: SURGICAL CHANGES IN THE GALLBLADDER FOSSA WITH PERCUTANEOUS DRAINAGE CATHETERS. NO SIGNIFICANT RESIDUAL FLUID COLLECTION. SMALL AMOUNT OF ASCITES. NO FOCAL FLUID COLLECTION CONCERNING FOR DEVELOPING ABSCESS. OTHER INCIDENTAL FINDINGS ABOVE. Head CT 03/27/18 10:08 IMPRESSION: NORMAL BRAIN CT WITHOUT CONTRAST. EVIDENCE OF ACUTE STROKE: NO. Chest CT 03/27/18 15:00 IMPRESSION: MODERATE BILATERAL PLEURAL EFFUSIONS WITH BASILAR ATELECTASIS/ CONSOLIDATION. OVERALL NO SIGNIFICANT CHANGE. Interventional Vascular Procedure 03/28/18 00:00 IMPRESSION: SUCCESSFUL PLACEMENT OF A 5 FR DUAL LUMEN 35 CM PICC IN THE LEFT BASILIC VEIN. PICC Line Insertion 03/28/18 00:00 IMPRESSION: SUCCESSFUL PLACEMENT OF A 5 FR DUAL LUMEN 35 CM PICC IN THE LEFT BASILIC VEIN. Assessment & Plan - Diagnosis (1) Gallbladder cancer Is this a current diagnosis for this admission?: Yes Plan: Improving greatly, hopeful transfer to lower step of care soon, energy level improving, trying to take in some diet.
[2018-03-29] MEDS ORDERED: NORMAL SALINE 250 ML IV PRN ×2 (08:33)
--- NOTE | 2018-03-29 08:47 | RADIOLOGY REPORT (SQ) ---
EXAM DESCRIPTION: CHEST SINGLE VIEW COMPLETED DATE/TIME: 03/29/2018 6:25 am REASON FOR STUDY: resp failure COMPARISON: CT chest 03/27/2018 Chest films 03/28/2018, 03/27/2018, 03/25/2018, 03/22/2018 EXAM PARAMETERS: NUMBER OF VIEWS: One view. TECHNIQUE: Single frontal radiographic view of the chest acquired. RADIATION DOSE: NA LIMITATIONS: None. FINDINGS: LUNGS AND PLEURA: Trace persistent bilateral pleural effusions with bibasilar airspace dis ease left greater than right atelectasis versus pneumonia. This is similar compared to previous stud ies. No pneumothorax MEDIASTINUM AND HILAR STRUCTURES: No masses. Contour normal. HEART AND VASCULAR STRUCTURES: Stable moderate cardiomegaly BONES: No acute findings. HARDWARE: Left PICC line tip superior vena cava. OTHER: No other significant finding. IMPRESSION: No change in bilateral trace pleural effusions and bibasilar airspace disease left great er than right. TECHNICAL DOCUMENTATION: JOB ID: [id number] [employer]- All Rights Reserved Reading location - IP/workstation name: [email or web address]
[2018-03-29] MEDS: LEVALBUTEROL HCL NEB 0.63 MG/3 ML AMPUL NEB SCH ×3 (08:59→23:50)
[2018-03-29 09:06] LABS: ABSOLUTE RETICS # 0.043 10^6/uL (0.028-0.122); RETICULOCYTE COUNT (AUTO) 1.55 % (0.66-2.85)
[2018-03-29 09:08] LABS: IRON(TIBC) 16.7 ug/dL (37-170)
[2018-03-29] MEDS: LIDOCAINE 5% (700 MG) TRANSDERMAL ADH..PATCH TP SCH (09:25)
[2018-03-29] MEDS: FAMOTIDINE INJ/PF 20 MG/2 ML SDV IV SCH ×2 (11:00→21:15)
[2018-03-29] MEDS: SALMETEROL XINAFOATE DISKUS 50 MCG/1 DOSE 28 DOSE IH SCH ×2 (11:00→21:15)
[2018-03-29] MEDS: FLUCONAZOLE 200 MG/NS RTU 200 MG/100 ML RTUPB IV SCH (11:00)
[2018-03-29] MEDS: FAT EMULSIONS 250 ML IV SCH (12:35)
[2018-03-29] MEDS: ACETAMINOPHEN 325 MG TABLET NG PRN ×2 (12:37→23:27)
[2018-03-29] MEDS ORDERED: FUROSEMIDE INJ/PF 40 MG/4 ML SDV IV ONE (13:30)
--- NOTE | 2018-03-29 15:15 | PDOC PROGRESS REPORT ---
Subjective Progress Note for:: 03/29/18 Subjective:: 63 y.o. F with HTN, asthma and COPD admitted to [facility] 03/01/2018 for c holecystectomy to remove cancerous gallbladder. Within days of surgery there was a large amount of output noted in her JASKARAN drain. The patient underwent an ERCP on 03/14/2018 with CBD stent placement. Within 24hrs she began developing signs of sepsis and the hospitalist service was consulted for medical management. The patient was seen on morning rounds while her was present. She was extubated (03/24/18 @1700) and is weaned to BIPAP (QHS) and nasal cannula during the day. She is fully awake today, A&Ox4, follows all commands. Some periods of confusion yesterday, but the patient is lucid this morning. Currently on meropenem for sepsis secondary to bile leak following radical cholecystectomy and partial hepatectomy for metastatic gallbladder cancer. Percutaneous drain placed by interventional radiology. Cultures growing Klebsiella pneumoniae, enterococcus, yeast. Patient w/ third spacing (gradual improvement); receiving TPN. Cleared by speech for oral intake. NG d/c'd. Continue TPN overlap. Hgb down to 7.8 today, no obvious signs of bleeding. Transfuse 1U PRBC. Test occult stool. Leukocytosis remains unchanged from yesterday. (+) low grade fever. Blood and urine cultures from yesterday pending. Surgery reports they plan to downgrade to IMCU Reason For Visit: GALLBLADDER CANCER Physical Exam Vital Signs: Temp Pulse Resp BP Pulse Ox 100.6 F H 97 20 126/59 H 96 03/29/18 14:42 03/29/18 14:42 03/29/18 14:42 03/29/18 14:42 03/29/18 14:42 Intake & Output 03/28/18 03/29/18 03/30/18 06:59 06:59 06:59 Intake Total 1720 1429 790 Output Total 2790 3070 450 Balance -1070 -1641 340 Weight 93.7 kg 91.6 kg General appearance: PRESENT: no acute distress, well-developed, well-nourished Eye exam: PRESENT: conjunctiva pink, PERRLA Mouth exam: PRESENT: dry mucosa, tongue midline, other - TACKY MUCOSA Neck exam: PRESENT: full ROM Respiratory exam: PRESENT: clear to auscultation christian, decreased breath sounds - B/L LOWER LOBES, symmetrical, unlabored - REQUIRING NASAL CANNULA Cardiovascular exam: PRESENT: +S1, +S2 Pulses: PRESENT: normal radial pulses Vascular exam: PRESENT: pallor GI/Abdominal exam: PRESENT: hypoactive bowel sounds, soft, tenderness - RUQ - AROUND SURGICAL SITE Rectal exam: PRESENT: deferred Gentrourinary exam: PRESENT: indwelling catheter Extremities exam: PRESENT: full ROM, pedal edema, +1 edema - TRACE EDEMA TO B/L LOWER EXTREMITIES Musculoskeletal exam: PRESENT: full ROM. ABSENT: ambulatory - ABLE TO SIT ON SIDE OF BED WITH PT Neurological exam: PRESENT: alert, awake, oriented to person, oriented to place, oriented to time, oriented to situation Psychiatric exam: PRESENT: appropriate affect Skin exam: PRESENT: dry, intact, pallor Results Laboratory Results: 03/29/18 03:59 03/29/18 03:59 03/28/18 03/29/18 03/29/18 16:40 03:59 03:59 WBC 14.4 H RBC 2.75 L Hgb 7.8 L Hct 23.1 L MCV 84 MCH 28.3 MCHC 33.8 RDW 15.2 H Plt Count 556 H Seg Neutrophils % 79.7 H Lymphocytes % 11.7 L Monocytes % 5.7 Eosinophils % 2.4 Basophils % 0.5 Absolute Neutrophils 11.5 H Absolute Lymphocytes 1.7 Absolute Monocytes 0.8 Absolute Eosinophils 0.3 Absolute Basophils 0.1 Retic Count (auto) Absolute Retic Carbonic Acid HCO3/H2CO3 Ratio ABG pH ABG pCO2 ABG pO2 ABG HCO3 ABG O2 Saturation ABG Base Excess FiO2 Sodium 141.1 Potassium 3.7 Chloride 105 Carbon Dioxide 29 Anion Gap 7 BUN 19 Creatinine 0.42 L Est GFR ( Amer) > 60 Est GFR (Non-Af Amer) > 60 Glucose 173 H Calcium 8.6 Phosphorus 4.0 Magnesium 2.1 Iron TIBC % Saturation Ferritin Total Bilirubin 1.2 AST 143 H ALT 112 H Alkaline Phosphatase 360 H Ammonia < 8.7 L Total Protein 5.1 L Albumin 2.6 L Prealbumin 8.7 L Vitamin B12 Folate Blood Type Antibody Screen 03/29/18 03/29/18 03/29/18 03:59 03:59 06:06 WBC RBC Hgb Hct MCV MCH MCHC RDW Plt Count Seg Neutrophils % Lymphocytes % Monocytes % Eosinophils % Basophils % Absolute Neutrophils Absolute Lymphocytes Absolute Monocytes Absolute Eosinophils Absolute Basophils Retic Count (auto) 1.55 Absolute Retic 0.043 Carbonic Acid 1.13 HCO3/H2CO3 Ratio 25:1 ABG pH 7.50 H ABG pCO2 37.6 ABG pO2 57.7 L ABG HCO3 28.5 H ABG O2 Saturation 92.3 L ABG Base Excess 5.0 FiO2 2L Sodium Potassium Chloride Carbon Dioxide Anion Gap BUN Creatinine Est GFR ( Amer) Est GFR (Non-Af Amer) Glucose Calcium Phosphorus Magnesium Iron 16.7 L TIBC 172 L % Saturation 10 Ferritin 312.00 H Total Bilirubin AST ALT Alkaline Phosphatase Ammonia Total Protein Albumin Prealbumin Vitamin B12 587.0 Folate 16.00 Blood Type Antibody Screen 03/29/18 08:59 WBC RBC Hgb Hct MCV MCH MCHC RDW Plt Count Seg Neutrophils % Lymphocytes % Monocytes % Eosinophils % Basophils % Absolute Neutrophils Absolute Lymphocytes Absolute Monocytes Absolute Eosinophils Absolute Basophils Retic Count (auto) Absolute Retic Carbonic Acid HCO3/H2CO3 Ratio ABG pH ABG pCO2 ABG pO2 ABG HCO3 ABG O2 Saturation ABG Base Excess FiO2 Sodium Potassium Chloride Carbon Dioxide Anion Gap BUN Creatinine Est GFR ( Amer) Est GFR (Non-Af Amer) Glucose Calcium Phosphorus Magnesium Iron TIBC % Saturation Ferritin Total Bilirubin AST ALT Alkaline Phosphatase Ammonia Total Protein Albumin Prealbumin Vitamin B12 Folate Blood Type A POSITIVE Antibody Screen NEGATIVE 03/20/18 10:24 Abdomen - Specimen From Or Fungal Smear - Final 03/20/18 10:24 Abdomen - Specimen From Or Fungal Smear - Final 03/16/18 03/18/18 03/18/18 05:06 04:45 19:10 CK-MB (CK-2) 1.10 Troponin I < 0.012 < 0.012 NT-Pro-B Natriuret Pep 513 03/18/18 03/20/18 19:50 12:05 CK-MB (CK-2) Troponin I NT-Pro-B Natriuret Pep 272 069 Impressions: KUB X-Ray 03/11/18 00:00 IMPRESSION: There are mildly dilated small bowel loops throughout the left abdomen, developing ileus or obstruction possible. Hepatobiliary Scan Nuclear Medicine 03/12/18 00:00 IMPRESSION: Bile leak in the gallbladder fossa. Catheter Placement 03/14/18 00:00 IMPRESSION: IMAGE(S) OBTAINED DURING PROCEDURE. Fluoroscopy 03/14/18 00:00 IMPRESSION: IMAGE(S) OBTAINED DURING PROCEDURE. Chest/Abdomen CTA 03/18/18 00:00 IMPRESSION: 1 . Status post cholecystectomy with pneumobilia. Upper abdominal ascites and pneumoperitoneum consistent with postsurgical change. 2. Bibasilar atelectasis with pleural effusions. Acute Abdomen Series 03/20/18 00:00 IMPRESSION: Postop ileus. Retroperitoneal Abscess Drainage 03/20/18 00:00 IMPRESSION: Successful CT-guided placement of drainage catheter. Thoracentesis Ultrasound 03/23/18 12:00 IMPRESSION: Small volume right-sided thoracentesis utilizing ultrasound guidance as detailed above. Abdomen/Pelvis CT 03/27/18 00:00 IMPRESSION: SURGICAL CHANGES IN THE GALLBLADDER FOSSA WITH PERCUTANEOUS DRAIN AGE CATHETERS. NO SIGNIFICANT RESIDUAL FLUID COLLECTION. SMALL AMOUNT OF ASCITES. NO FOCAL FLUID COLLECTION CONCERNING FOR DEVELOPING ABSCESS. OTHER INCIDENTAL FINDINGS ABOVE. Head CT 03/27/18 10:08 IMPRESSION: NORMAL BRAIN CT WITHOUT CONTRAST. EVIDENCE OF ACUTE STROKE: NO. Chest CT 03/27/18 15:00 IMPRESSION: MODERATE BILATERAL PLEURAL EFFUSIONS WITH BASILAR ATELECTASIS/ CONSOLIDATION. OVERALL NO SIGNIFICANT CHANGE. Interventional Vascular Procedure 03/28/18 00:00 IMPRESSION: SUCCESSFUL PLACEMENT OF A 5 FR DUAL LUMEN 35 CM PICC IN THE LEFT BASILIC VEIN. PICC Line Insertion 03/28/18 00:00 IMPRESSION: SUCCESSFUL PLACEMENT OF A 5 FR DUAL LUMEN 35 CM PICC IN THE LEFT BASILIC VEIN. Chest X-Ray 03/29/18 06:00 IMPRESSION: No change in bilateral trace pleural effusions and bibasilar airspace disease left greater than right. Status: Imported from PACS Assessment & Plan - Diagnosis (1) Sepsis Is this a current diagnosis for this admission?: Yes Plan: Improving. Continues to have low grade temps (100.3), WBCs improving today (13.5-> 10.6-> 14.7->16.3->14.4). Sepsis secondary to intra-abdominal infection. Evidence by tachycardia, leukocyosis, fever (LWHL403.2), tachypnea (RR 24-40) No evidence of PNA. Blood cultures (03/16/18, 03/20/18) negative at 5 days. 03/27/2018 Repeat blood cultures pending for continued fever and worsening leukocytosis Urinalysis negative; repeat is normal. Culture pending. Now s/p percutaneous drain placement. Peritoneal fluid C/S growing klebsiella pneumoniae, enterococcus faecalis, yeast. AFB and Fungal smears pending. Sputum culture shows yeast. Thoracic fluid AFB smear pending. Culture has no growth (final). Repeat CT Chest shows moderate b/l pleural effusions, essentially unchanged. Influenza A/B negative Continue Meropenem, IV Diflucan. Vancomycin discontinued 03/25/18 Infectious Disease is consulted 03/27; appreciate Dr. Vela's evaluation and recommendations. Previously received Cipro pre-operatively before Ex Lap, postoperatively received Ancef and Flagyl 03/06-03/13 (2) Respiratory failure Qualifiers: Chronicity: acute Is this a current diagnosis for this admission?: Yes Plan: Improved; tolerating BiPAP QHS; Nasal cannula during the day Secondary to poor respiratory effort/splinting stemming from postoperative pain resulting in atelectasis and bilateral pleural effusions; complicated by sepsis. Bilateral pleural effusions on CTA; R>L. Continue to be present on CXR and CT. ProBNP 659, echocardiogram is reassuring. LVEF 65%, normal diastolic function Thoracentesis; only 20 mL out Repeat Chest CT 03/27 shows moderate b/l pleural effusions, basically unchanged from previous imaging studies Influenza negative Continue supplemental oxygen, non-invasive positive pressure mechanical ventilation as needed to maintain oxygen saturations. Scheduled and as needed nebulizer treatments. Spiriva and Serevent. Continue to diuresis as BP and kidney function allows - lasix today following PRBC transfusion Pulmonology is consulted; appreciate Dr. Booth's assistance. 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 Tadeo's assistance. Surgery is primary; appreciate Dr. Michaud's expertise with surgical/oncolog ical cases. Swallow evaluation yesterday, patient able to tolerate solid foods, plan for diet initiation Carb meal pattern with thin liquids, no straws Overlap with TPN for hypoalbuminemia (4) Anxiety Is this a current diagnosis for this admission?: Yes Plan: Patient has a PMH of anxiety Family reports the patient has been significantly anxious while inpatient Ativan 1 mg PO every 4 hours as needed. BuSpar three times daily. (5) Hypotension Is this a current diagnosis for this admission?: Yes Plan: Resolved; blood pressures are now stable Secondary to sepsis. Off robert-Synephrine. Previously provided albumin and Hespan. Repeat IV lasix for fluid mobilization. Continue TPN for hypoalbuminemia. (6) Postoperative pain Is this a current diagnosis for this admission?: Yes Plan: Status post cholecystectomy and ERCP Postoperative pain may have contributed to her acute respiratory failure with hypoxia secondary to splinting. Continue providing analgesics as needed. Oxycodone, IV tylenol or toradaol is available. Lidoderm patches, repositioning. (7) Full code status Is this a current diagnosis for this admission?: Yes (8) Anemia Qualifiers: Other causes of anemia: chronic disease, other Is this a current diagnosis for this admission?: Yes Plan: Hgb 7.8 today - transfuse 1 U PRBC with f/u post-transfusion CBC Occult stool today No evidence of ongoing bleeding. Will monitor closely and continue to provide additional PRBC for Hgb <8 Registered dietitian is consulted (9) COPD (chronic obstructive pulmonary disease) Qualifiers: COPD type: unspecified COPD Qualified Code(s): J44.9 - Chronic obstructive pulmonary disease, unspecified Is this a current diagnosis for this admission?: Yes Plan: Without exacerbation at this time. Management as above. (10) Tobacco abuse Is this a current diagnosis for this admission?: Yes Plan: Nicotine replacement therapy is offered. (11) Debility Is this a current diagnosis for this admission?: Yes Plan: PT/OT Patient able to sit on edge of bed. Discharge planning is consulted. Family goal is to discharge to home with home health services. - Time Time Spent with patient: 15-24 minutes Total Critical Time (Minutes): 10 Medications reviewed and adjusted accordingly: Yes Anticipated discharge: Home with Homehealth - Inpatient Certification Based on my medical assessment, after consideration of the patient's comorbidities, presenting symptoms, or acuity I expect that the services needed warrant INPATIENT care.: Yes I certify that my determination is in accordance with my understanding of Medicare's requirements for reasonable and necessary INPATIENT services [42 CFR 412.3e].: Yes Medical Necessity: Significant Comorbidiites Make Outpatient Treatment Too Risky, Need for IV Antibiotics - Plan Summary Plan Summary: BLOOD TRANSFUSION FOLLOWED BY [facility]. CONTINUE ABX. DOWNGRADE TO IMCU.
--- NOTE | 2018-03-29 15:35 | PDOC PROGRESS REPORT ---
Subjective Progress Note for:: 03/29/18 Reason For Visit: GALLBLADDER CANCER Physical Exam Vital Signs: Temp Pulse Resp BP Pulse Ox 100.6 F H 97 20 126/59 H 96 03/29/18 14:42 03/29/18 14:42 03/29/18 14:42 03/29/18 14:42 03/29/18 14:42 Intake & Output 03/28/18 03/29/18 03/30/18 06:59 06:59 06:59 Intake Total 1720 1429 940 Output Total 2790 3070 500 Balance -1070 -1641 440 Weight 93.7 kg 91.6 kg General appearance: PRESENT: no acute distress, cooperative Respiratory exam: PRESENT: clear to auscultation christian Cardiovascular exam: PRESENT: RRR Pulses: PRESENT: normal radial pulses, normal femoral pulses GI/Abdominal exam: PRESENT: soft Extremities exam: PRESENT: full ROM Musculoskeletal exam: PRESENT: full ROM Results Laboratory Results: 03/29/18 03:59 03/29/18 03:59 03/28/18 03/29/18 03/29/18 16:40 03:59 03:59 WBC 14.4 H RBC 2.75 L Hgb 7.8 L Hct 23.1 L MCV 84 MCH 28.3 MCHC 33.8 RDW 15.2 H Plt Count 556 H Seg Neutrophils % 79.7 H Lymphocytes % 11.7 L Monocytes % 5.7 Eosinophils % 2.4 Basophils % 0.5 Absolute Neutrophils 11.5 H Absolute Lymphocytes 1.7 Absolute Monocytes 0.8 Absolute Eosinophils 0.3 Absolute Basophils 0.1 Retic Count (auto) Absolute Retic Carbonic Acid HCO3/H2CO3 Ratio ABG pH ABG pCO2 ABG pO2 ABG HCO3 ABG O2 Saturation ABG Base Excess FiO2 Sodium 141.1 Potassium 3.7 Chloride 105 Carbon Dioxide 29 Anion Gap 7 BUN 19 Creatinine 0.42 L Est GFR ( Amer) > 60 Est GFR (Non-Af Amer) > 60 Glucose 173 H Calcium 8.6 Phosphorus 4.0 Magnesium 2.1 Iron TIBC % Saturation Ferritin Total Bilirubin 1.2 AST 143 H ALT 112 H Alkaline Phosphatase 360 H Ammonia < 8.7 L Total Protein 5.1 L Albumin 2.6 L Prealbumin 8.7 L Vitamin B12 Folate Blood Type Antibody Screen 03/29/18 03/29/18 03/29/18 03:59 03:59 06:06 WBC RBC Hgb Hct MCV MCH MCHC RDW Plt Count Seg Neutrophils % Lymphocytes % Monocytes % Eosinophils % Basophils % Absolute Neutrophils Absolute Lymphocytes Absolute Monocytes Absolute Eosinophils Absolute Basophils Retic Count (auto) 1.55 Absolute Retic 0.043 Carbonic Acid 1.13 HCO3/H2CO3 Ratio 25:1 ABG pH 7.50 H ABG pCO2 37.6 ABG pO2 57.7 L ABG HCO3 28.5 H ABG O2 Saturation 92.3 L ABG Base Excess 5.0 FiO2 2L Sodium Potassium Chloride Carbon Dioxide Anion Gap BUN Creatinine Est GFR ( Amer) Est GFR (Non-Af Amer) Glucose Calcium Phosphorus Magnesium Iron 16.7 L TIBC 172 L % Saturation 10 Ferritin 312.00 H Total Bilirubin AST ALT Alkaline Phosphatase Ammonia Total Protein Albumin Prealbumin Vitamin B12 587.0 Folate 16.00 Blood Type Antibody Screen 03/29/18 08:59 WBC RBC Hgb Hct MCV MCH MCHC RDW Plt Count Seg Neutrophils % Lymphocytes % Monocytes % Eosinophils % Basophils % Absolute Neutrophils Absolute Lymphocytes Absolute Monocytes Absolute Eosinophils Absolute Basophils Retic Count (auto) Absolute Retic Carbonic Acid HCO3/H2CO3 Ratio ABG pH ABG pCO2 ABG pO2 ABG HCO3 ABG O2 Saturation ABG Base Excess FiO2 Sodium Potassium Chloride Carbon Dioxide Anion Gap BUN Creatinine Est GFR ( Amer) Est GFR (Non-Af Amer) Glucose Calcium Phosphorus Magnesium Iron TIBC % Saturation Ferritin Total Bilirubin AST ALT Alkaline Phosphatase Ammonia Total Protein Albumin Prealbumin Vitamin B12 Folate Blood Type A POSITIVE Antibody Screen NEGATIVE 03/20/18 10:24 Abdomen - Specimen From Or Fungal Smear - Final 03/20/18 10:24 Abdomen - Specimen From Or Fungal Smear - Final 03/16/18 03/18/18 03/18/18 05:06 04:45 19:10 CK-MB (CK-2) 1.10 Troponin I < 0.012 < 0.012 NT-Pro-B Natriuret Pep 513 03/18/18 03/20/18 19:50 12:05 CK-MB (CK-2) Troponin I NT-Pro-B Natriuret Pep 272 359 Impressions: KUB X-Ray 03/11/18 00:00 IMPRESSION: There are mildly dilated small bowel loops throughout the left abdomen, developing ileus or obstruction possible. Hepatobiliary Scan Nuclear Medicine 03/12/18 00:00 IMPRESSION: Bile leak in the gallbladder fossa. Catheter Placement 03/14/18 00:00 IMPRESSION: IMAGE(S) OBTAINED DURING PROCEDURE. Fluoroscopy 03/14/18 00:00 IMPRESSION: IMAGE(S) OBTAINED DURING PROCEDURE. Chest/Abdomen CTA 03/18/18 00:00 IMPRESSION: 1 . Status post cholecystectomy with pneumobilia. Upper abdominal ascites and pneumoperitoneum consistent with postsurgical change. 2. Bibasilar atelectasis with pleural effusions. Acute Abdomen Series 03/20/18 00:00 IMPRESSION: Postop ileus. Retroperitoneal Abscess Drainage 03/20/18 00:00 IMPRESSION: Successful CT-guided placement of drainage catheter. Thoracentesis Ultrasound 03/23/18 12:00 IMPRESSION: Small volume right-sided thoracentesis utilizing ultrasound guidance as detailed above. Abdomen/Pelvis CT 03/27/18 00:00 IMPRESSION: SURGICAL CHANGES IN THE GALLBLADDER FOSSA WITH PERCUTANEOUS DRAINAGE CATHETERS. NO SIGNIFICANT RESIDUAL FLUID COLLECTION. SMALL AMOUNT OF ASCITES. NO FOCAL FLUID COLLECTION CONCERNING FOR DEVELOPING ABSCESS. OTHER INCIDENTAL FINDINGS ABOVE. Head CT 03/27/18 10:08 IMPRESSION: NORMAL BRAIN CT WITHOUT CONTRAST. EVIDENCE OF ACUTE STROKE: NO. Chest CT 03/27/18 15:00 IMPRESSION: MODERATE BILATERAL PLEURAL EFFUSIONS WITH BASILAR ATELECTASIS/ CONSOLIDATION. OVERALL NO SIGNIFICANT CHANGE. Interventional Vascular Procedure 03/28/18 00:00 IMPRESSION: SUCCESSFUL PLACEMENT OF A 5 FR DUAL LUMEN 35 CM PICC IN THE LEFT BA SILIC VEIN. PICC Line Insertion 03/28/18 00:00 IMPRESSION: SUCCESSFUL PLACEMENT OF A 5 FR DUAL LUMEN 35 CM PICC IN THE LEFT BASILIC VEIN. Chest X-Ray 03/29/18 06:00 IMPRESSION: No change in bilateral trace pleural effusions and bibasilar airspace disease left greater than right. Assessment & Plan - Diagnosis (1) Acute respiratory failure with hypoxia Is this a current diagnosis for this admission?: Yes (3) Bile leak, postoperative Is this a current diagnosis for this admission?: Yes (4) Full code status Is this a current diagnosis for this admission?: Yes - Plan Summary Plan Summary: PT NOW OFF BIPAP DURING THE DAY WORKING WITH PT ABLE TO SIT UP IN CHAIR STILL WITH DIFFICULTY STANDING LESS SOB HER WBC IS DOWN TODAY TO 14K SHE IS EV REG DIET AND HAVING NL BM'S JASKARAN DRAIN REMOVED YESTERDAY 'CENTRAL LINE REMOVED YESTERDAY' PICC LINE PLACED AND ON TPN PERC DRAIN STILL IN AND OP IS MIN WILL REMOVE TOMORROW PT TO TRANSITION TO STEP DOWN CARE TODAY
--- NOTE | 2018-03-29 16:10 | PDOC PROGRESS REPORT ---
Subjective Progress Note for:: 03/27/18 Subjective:: stable confused Reason For Visit: GALLBLADDER CANCER Physical Exam Vital Signs: Temp Pulse Resp BP Pulse Ox 100.9 F H 101 H 26 H 142/88 H 98 03/27/18 08:00 03/27/18 08:07 03/27/18 08:07 03/27/18 08:00 03/27/18 08:07 Intake & Output 03/26/18 03/27/18 03/28/18 06:59 06:59 06:59 Intake Total 1400 3648 50 Output Total 4025 4715 120 Balance -2625 -1067 -70 Weight 98.9 kg 94.7 kg General appearance: PRESENT: no acute distress, disheveled, obese. ABSENT: cooperative Head exam: PRESENT: atraumatic, normocephalic Eye exam: PRESENT: conjunctiva pale, EOMI. ABSENT: nystagmus Mouth exam: PRESENT: dry mucosa, neck supple, tongue midline Neck exam: ABSENT: carotid bruit, JVD, lymphadenopathy, thyromegaly, tracheal deviation, tracheostomy Respiratory exam: PRESENT: decreased breath sounds, prolonged expiratory phas, rales, rhonchi, unlabored, wheezes. ABSENT: retraction, stridor Cardiovascular exam: PRESENT: RRR, +S1, +S2 Pulses: PRESENT: normal radial pulses GI/Abdominal exam: PRESENT: soft, other - Status post surgery Gentrourinary exam: PRESENT: indwelling catheter Extremities exam: ABSENT: calf tenderness, clubbing, joint swelling Musculoskeletal exam: ABSENT: deformity, dislocation Neurological exam: PRESENT: altered, awake Psychiatric exam: PRESENT: flat affect Skin exam: PRESENT: dry, warm Results Laboratory Results: 03/27/18 06:18 03/27/18 06:18 03/26/18 03/26/18 03/26/18 11:15 14:54 17:47 WBC 14.7 H RBC 3.55 L Hgb 9.8 L Hct 29.7 L MCV 84 MCH 27.7 MCHC 33.0 RDW 15.2 H Plt Count 544 H Seg Neutrophils % Lymphocytes % Monocytes % Eosinophils % Basophils % Absolute Neutrophils Absolute Lymphocytes Absolute Monocytes Absolute Eosinophils Absolute Basophils Carbonic Acid 0.97 L HCO3/H2CO3 Ratio 28:1 ABG pH 7.55 H ABG pCO2 32.3 L ABG pO2 51.4 L ABG HCO3 27.8 H ABG O2 Saturation 91.0 L ABG Base Excess 5.1 FiO2 21% Sodium Potassium Chloride Carbon Dioxide Anion Gap BUN Creatinine Est GFR ( Amer) Est GFR (Non-Af Amer) Glucose Calcium Triglycerides Blood Type A POSITIVE Antibody Screen NEGATIVE 03/26/18 03/27/18 03/27/18 21:55 05:40 06:18 WBC 14.3 H RBC 3.46 L Hgb 9.6 L Hct 28.7 L MCV 83 MCH 27.9 MCHC 33.6 RDW 15.2 H Plt Count 576 H Seg Neutrophils % 83.3 H Lymphocytes % 8.9 L Monocytes % 5.4 Eosinophils % 1.9 Basophils % 0.5 Absolute Neutrophils 11.9 H Absolute Lymphocytes 1.3 Absolute Monocytes 0.8 Absolute Eosinophils 0.3 Absolute Basophils 0.1 Carbonic Acid 0.82 L HCO3/H2CO3 Ratio 29:1 ABG pH 7.57 H ABG pCO2 27.2 L ABG pO2 55.7 L ABG HCO3 24.5 H ABG O2 Saturation 93.3 L ABG Base Excess 3.0 FiO2 21% Sodium Potassium Chloride Carbon Dioxide Anion Gap BUN Creatinine Est GFR ( Amer) Est GFR (Non-Af Amer) Glucose Calcium Triglycerides 172 H Blood Type Antibody Screen 03/27/18 06:18 WBC RBC Hgb Hct MCV MCH MCHC RDW Plt Count Seg Neutrophils % Lymphocytes % Monocytes % Eosinophils % Basophils % Absolute Neutrophils Absolute Lymphocytes Absolute Monocytes Absolute Eosinophils Absolute Basophils Carbonic Acid HCO3/H2CO3 Ratio ABG pH ABG pCO2 ABG pO2 ABG HCO3 ABG O2 Saturation ABG Base Excess FiO2 Sodium 143.8 Potassium 3.7 Chloride 107 Carbon Dioxide 31 H Anion Gap 6 BUN 15 Creatinine 0.48 L Est GFR ( Amer) > 60 Est GFR (Non-Af Amer) > 60 Glucose 127 H Calcium 9.0 Triglycerides Blood Type Antibody Screen 03/22/18 10:30 Tracheal Aspirate Gram Stain - Final 03/22/18 10:30 Tracheal Aspirate Sputum Culture - Final Yeast, Not Karol Albicans Greatly Reduced Normal Olivia 03/23/18 12:00 Thoracic Fluid AFB Smear Concentration - Final 03/23/18 12:00 Thoracic Fluid Acid Fast Bacilli Smear - Final 03/20/18 10:24 Abdomen - Specimen From Or Fungal Smear - Final 03/20/18 10:24 Abdomen - Specimen From Or Fungal Smear - Final 03/23/18 12:00 Thoracic Fluid Gram Stain - Final 03/23/18 12:00 Thoracic Fluid Body Fluid Culture - Final NO AEROBIC OR ANAEROBIC ORGANISMS RECOVERED 03/16/18 03/18/18 03/18/18 05:06 04:45 19:10 CK-MB (CK-2) 1.10 Troponin I < 0.012 < 0.012 NT-Pro-B Natriuret Pep 513 03/18/18 03/20/18 19:50 12:05 CK-MB (CK-2) Troponin I NT-Pro-B Natriuret Pep 272 659 Impressions: KUB X-Ray 03/11/18 00:00 IMPRESSION: There are mildly dilated small bowel loops throughout the left abdomen, developing ileus or obstruction possible. Hepatobiliary Scan Nuclear Medicine 03/12/18 00:00 IMPRESSION: Bile leak in the gallbladder fossa. Catheter Placement 03/14/18 00:00 IMPRESSION: IMAGE(S) OBTAINED DURING PROCEDURE. Fluoroscopy 03/14/18 00:00 IMPRESSION: IMAGE(S) OBTAINED DURING PROCEDURE. Chest/Abdomen CTA 03/18/18 00:00 IMPRESSION: 1 . Status post cholecystectomy with pneumobilia. Upper abdominal ascites and pneumoperitoneum consistent with postsurgical change. 2. Bibasilar atelectasis with pleural effusions. Acute Abdomen Series 03/20/18 00:00 IMPRESSION: Postop ileus. Retroperitoneal Abscess Drainage 03/20/18 00:00 IMPRESSION: Successful CT-guided placement of drainage catheter. Abdomen/Pelvis CT 03/21/18 00:00 IMPRESSION: Interval endotracheal intubation. Interval worsening of now moderate right, small left pleural effusions and associated atelectasis or consolidation. IMPRESSION: 1. Postoperative findings of cholecystectomy with interval placement of a pigtail surgical drain within a fluid collection about the gallbladder fossa and anterior to the liver. There is near total interval resolution of this fluid collection. An additional surgical drain remains in the gallbladder fossa. 2. There is an interval increase in ascites elsewhere about the abdomen. 3. Anasarca. Chest CT 03/21/18 00:00 IMPRESSION: Interval endotracheal intubation. Interval worsening of now moderate right, small left pleural effusions and associated atelectasis or consolidation. IMPRESSION: 1. Postoperative findings of cholecystectomy with interval placement of a pigtail surgical drain within a fluid collection about the gallbladder fossa and anterior to the liver. There is near total interval r esolution of this fluid collection. An additional surgical drain remains in the gallbladder fossa. 2. There is an interval increase in ascites elsewhere about the abdomen. 3. Anasarca. Thoracentesis Ultrasound 03/23/18 12:00 IMPRESSION: Small volume right-sided thoracentesis utilizing ultrasound guidance as detailed above. Chest X-Ray 03/27/18 06:00 IMPRESSION: No change. Assessment & Plan - Diagnosis (1) Acute respiratory failure with hypoxia Is this a current diagnosis for this admission?: Yes Plan: stable (2) COPD (chronic obstructive pulmonary disease) Qualifiers: COPD type: unspecified COPD Qualified Code(s): J44.9 - Chronic obstructive pulmonary disease, unspecified Is this a current diagnosis for this admission?: Yes Plan: Generic Name Dose Route Start Last Admin Trade Name Freq PRN Reason Stop Dose Admin Nicotine 1 each 03/25/18 14:49 Nicoderm 7 Mg/24 Hr Transdermal Patch TD 04/24/18 14:48 DAILYP PRN WITHDRAWAL SYMPTOMS Tiotropium [place] 1 cap 03/12/18 06:00 03/25/18 05:14 Spiriva Handihaler 5 Cap/Kit (18 Mcg/Cap) IH 04/11/18 05:59 1 cap Q6AM JULIAN Albuterol 2.5 mg 03/17/18 09:20 03/24/18 12:03 Ventolin 0.083% Neb 2.5 Mg/3 Ml Ampul NEB 04/16/18 09:19 2.5 mg RTQ6HP PRN SOB Levalbuterol HCl 0.63 mg 03/25/18 16:00 03/25/18 16:38 Xopenex Neb 0.63 Mg/3 Ml Ampul NEB 04/24/18 15:59 0.63 mg RTQ8 JULIAN (3) Gallbladder cancer Is this a current diagnosis for this admission?: Yes Plan: As per surgery and oncology (4) Sepsis Is this a current diagnosis for this admission?: No (5) Tobacco abuse Is this a current diagnosis for this admission?: Yes Plan: Stop smoking transdermal nicotine - Time Total Critical Time (Minutes): 45
--- NOTE | 2018-03-29 16:12 | PDOC PROGRESS REPORT ---
Subjective Progress Note for:: 03/28/18 Subjective:: stable confused Reason For Visit: GALLBLADDER CANCER Physical Exam Vital Signs: Temp Pulse Resp BP Pulse Ox 100.9 F H 104 H 29 H 140/69 H 98 03/28/18 08:00 03/28/18 09:16 03/28/18 09:16 03/28/18 08:00 03/28/18 09:16 Intake & Output 03/27/18 03/28/18 03/29/18 06:59 06:59 06:59 Intake Total 3648 1720 Output Total 4715 2790 125 Balance -1067 -1070 -125 Weight 94.7 kg 93.7 kg General appearance: PRESENT: no acute distress, disheveled, obese Head exam: PRESENT: atraumatic, normocephalic Eye exam: PRESENT: conjunctiva pale, EOMI. ABSENT: nystagmus, scleral icterus Mouth exam: PRESENT: dry mucosa, neck supple, tongue midline Neck exam: ABSENT: carotid bruit, JVD, lymphadenopathy, thyromegaly, tracheal de viation, tracheostomy Respiratory exam: PRESENT: rales, rhonchi, unlabored. ABSENT: decreased breath sounds, retraction, stridor Cardiovascular exam: PRESENT: RRR, +S1, +S2, tachycardia Pulses: PRESENT: normal radial pulses GI/Abdominal exam: PRESENT: other - Status post surgery Gentrourinary exam: PRESENT: indwelling catheter Extremities exam: ABSENT: calf tenderness, clubbing, joint swelling, pedal edema Musculoskeletal exam: ABSENT: deformity, dislocation Neurological exam: PRESENT: altered Psychiatric exam: PRESENT: flat affect Skin exam: PRESENT: dry, other Results Laboratory Results: 03/28/18 06:29 03/28/18 06:29 03/28/18 03/28/18 03/28/18 06:29 06:29 06:29 WBC 16.4 H RBC 3.09 L Hgb 8.6 L Hct 25.7 L MCV 83 MCH 27.9 MCHC 33.5 RDW 14.8 H Plt Count 607 H Seg Neutrophils % 81.3 H Lymphocytes % 10.3 L Monocytes % 5.7 Eosinophils % 1.8 Basophils % 0.9 Absolute Neutrophils 13.4 H Absolute Lymphocytes 1.7 Absolute Monocytes 0.9 Absolute Eosinophils 0.3 Absolute Basophils 0.1 Sodium 142.2 Potassium 3.3 L Chloride 105 Carbon Dioxide 27 Anion Gap 10 BUN 17 Creatinine 0.42 L Est GFR ( Amer) > 60 Est GFR (Non-Af Amer) > 60 Glucose 121 H Calcium 8.6 Magnesium 1.9 Total Bilirubin 1.1 AST 97 H ALT 71 H Alkaline Phosphatase 346 H Total Protein 5.2 L Albumin 2.7 L 03/23/18 12:00 Pleural Fluid - Right Pleural Effusion Fungal Smear - Final 03/23/18 12:00 Pleural Fluid - Right Pleural Effusion Fungal Smear - Final 03/20/18 10:24 Abdomen - Specimen From Or Fungal Smear - Final 03/20/18 10:24 Abdomen - Specimen From Or Fungal Smear - Final 03/25/18 13:13 Catheterized Urine Urine Culture - Final NO GROWTH 2 DAYS 03/16/18 03/18/18 03/18/18 05:06 04:45 19:10 CK-MB (CK-2) 1.10 Troponin I < 0.012 < 0.012 NT-Pro-B Natriuret Pep 513 03/18/18 03/20/18 19:50 12:05 CK-MB (CK-2) Troponin I NT-Pro-B Natriuret Pep 272 659 Impressions: KUB X-Ray 03/11/18 00:00 IMPRESSION: There are mildly dilated small bowel loops throughout the left abdomen, developing ileus or obstruction possible. Hepatobiliary Scan Nuclear Medicine 03/12/18 00:00 IMPRESSION: Bile leak in the gallbladder fossa. Catheter Placement 03/14/18 00:00 IMPRESSION: IMAGE(S) OBTAINED DURING PROCEDURE. Fluoroscopy 03/14/18 00:00 IMPRESSION: IMAGE(S) OBTAINED DURING PROCEDURE. Chest/Abdomen CTA 03/18/18 00:00 IMPRESSION: 1 . Status post cholecystectomy with pneumobilia. Upper abdominal ascites and pneumoperitoneum consistent with postsurgical change. 2. Bibasilar atelectasis with pleural effusions. Acute Abdomen Series 03/20/18 00:00 IMPRESSION: Postop ileus. Retroperitoneal Abscess Drainage 03/20/18 00:00 IMPRESSION: Successful CT-guided placement of drainage catheter. Thoracentesis Ultrasound 03/23/18 12:00 IMPRESSION: Small volume right-sided thoracentesis utilizing ultrasound guidance as detailed above. Abdomen/Pelvis CT 03/27/18 00:00 IMPRESSION: SURGICAL CHANGES IN THE GALLBLADDER FOSSA WITH PERCUTANEOUS DRAINAGE CATHETERS. NO SIGNIFICANT RESIDUAL FLUID COLLECTION. SMALL AMOUNT OF ASCITES. NO FOCAL FLUID COLLECTION CONCERNING FOR DEVELOPING ABSCESS. OTHER INCIDENTAL FINDINGS ABOVE. Head CT 03/27/18 10:08 IMPRESSION: NORMAL BRAIN CT WITHOUT CONTRAST. EVIDENCE OF ACUTE STROKE: NO. Chest CT 03/27/18 15:00 IMPRESSION: MODERATE BILATERAL PLEURAL EFFUSIONS WITH BASILAR ATELECTASIS/ CONSOLIDATION. OVERALL NO SIGNIFICANT CHANGE. Chest X-Ray 03/28/18 05:00 IMPRESSION: No change. Assessment & Plan - Diagnosis (1) Acute respiratory failure with hypoxia Is this a current diagnosis for this admission?: Yes Plan: stable (2) COPD (chronic obstructive pulmonary disease) Qualifiers: COPD type: unspecified COPD Qualified Code(s): J44.9 - Chronic obstructive pulmonary disease, unspecified Is this a current diagnosis for this admission?: Yes Plan: Generic Name Dose Route Start Last Admin Trade Name Freq PRN Reason Stop Dose Admin Nicotine 1 each 03/25/18 14:49 Nicoderm 7 Mg/24 Hr Transdermal Patch TD 04/24/18 14:48 DAILYP PRN WITHDRAWAL SYMPTOMS Tiotropium [place] 1 cap 03/12/18 06:00 03/25/18 05:14 Spiriva Handihaler 5 Cap/Kit (18 Mcg/Cap) IH 04/11/18 05:59 1 cap Q6AM JULIAN Albuterol 2.5 mg 03/17/18 09:20 03/24/18 12:03 Ventolin 0.083% Neb 2.5 Mg/3 Ml Ampul NEB 04/16/18 09:19 2.5 mg RTQ6HP PRN SOB Levalbuterol HCl 0.63 mg 03/25/18 16:00 03/25/18 16:38 Xopenex Neb 0.63 Mg/3 Ml Ampul NEB 04/24/18 15:59 0.63 mg RTQ8 JULIAN (3) Gallbladder cancer Is this a current diagnosis for this admission?: Yes Plan: As per surgery and oncology (4) Sepsis Is this a current diagnosis for this admission?: No (5) Tobacco abuse Is this a current diagnosis for this admission?: Yes Plan: Stop smoking transdermal nicotine - Time Total Critical Time (Minutes): 45
--- NOTE | 2018-03-29 16:15 | PDOC PROGRESS REPORT ---
Subjective Progress Note for:: 03/29/18 Subjective:: Much more alert and interactive today Reason For Visit: GALLBLADDER CANCER Physical Exam Vital Signs: Temp Pulse Resp BP Pulse Ox 99.3 F 94 30 H 137/66 H 93 03/29/18 08:00 03/29/18 08:00 03/29/18 08:00 03/29/18 08:00 03/29/18 08:00 Intake & Output 03/28/18 03/29/18 03/30/18 06:59 06:59 06:59 Intake Total 1720 1429 Output Total 2790 3070 125 Balance -1070 -1641 -125 Weight 93.7 kg 91.6 kg General appearance: PRESENT: no acute distress, cooperative, disheveled, obese Head exam: PRESENT: atraumatic, normocephalic Eye exam: PRESENT: conjunctiva pale, EOMI. ABSENT: nystagmus, scleral icterus Mouth exam: PRESENT: dry mucosa, neck supple, tongue midline Neck exam: ABSENT: carotid bruit, JVD, lymphadenopathy, thyromegaly, tracheal deviation, tracheostomy Respiratory exam: PRESENT: decreased breath sounds, prolonged expiratory phas, rales, rhonchi, unlabored. ABSENT: retraction Cardiovascular exam: PRESENT: RRR, +S1, +S2 Pulses: PRESENT: normal radial pulses GI/Abdominal exam: PRESENT: other - Status post surgery Gentrourinary exam: PRESENT: indwelling catheter Extremities exam: ABSENT: calf tenderness, clubbing, joint swelling, pedal edema Musculoskeletal exam: ABSENT: deformity, dislocation Neurological exam: PRESENT: awake Psychiatric exam: PRESENT: appropriate affect Skin exam: PRESENT: dry, warm Results Laboratory Results: 03/29/18 03:59 03/29/18 03:59 03/28/18 03/29/18 03/29/18 16:40 03:59 03:59 WBC 14.4 H RBC 2.75 L Hgb 7.8 L Hct 23.1 L MCV 84 MCH 28.3 MCHC 33.8 RDW 15.2 H Plt Count 556 H Seg Neutrophils % 79.7 H Lymphocytes % 11.7 L Monocytes % 5.7 Eosinophils % 2.4 Basophils % 0.5 Absolute Neutrophils 11.5 H Absolute Lymphocytes 1.7 Absolute Monocytes 0.8 Absolute Eosinophils 0.3 Absolute Basophils 0.1 Retic Count (auto) Absolute Retic Carbonic Acid HCO3/H2CO3 Ratio ABG pH ABG pCO2 ABG pO2 ABG HCO3 ABG O2 Saturation ABG Base Excess FiO2 Sodium 141.1 Potassium 3.7 Chloride 105 Carbon Dioxide 29 Anion Gap 7 BUN 19 Creatinine 0.42 L Est GFR ( Amer) > 60 Est GFR (Non-Af Amer) > 60 Glucose 173 H Calcium 8.6 Phosphorus 4.0 Magnesium 2.1 Total Bilirubin 1.2 AST 143 H ALT 112 H Alkaline Phosphatase 360 H Ammonia < 8.7 L Total Protein 5.1 L Albumin 2.6 L Prealbumin 8.7 L Blood Type Antibody Screen 03/29/18 03/29/18 03/29/18 03:59 06:06 08:59 WBC RBC Hgb Hct MCV MCH MCHC RDW Plt Count Seg Neutrophils % Lymphocytes % Monocytes % Eosinophils % Basophils % Absolute Neutrophils Absolute Lymphocytes Absolute Monocytes Absolute Eosinophils Absolute Basophils Retic Count (auto) 1.55 Absolute Retic 0.043 Carbonic Acid 1.13 HCO3/H2CO3 Ratio 25:1 ABG pH 7.50 H ABG pCO2 37.6 ABG pO2 57.7 L ABG HCO3 28.5 H ABG O2 Saturation 92.3 L ABG Base Excess 5.0 FiO2 2L Sodium Potassium Chloride Carbon Dioxide Anion Gap BUN Creatinine Est GFR ( Amer) Est GFR (Non-Af Amer) Glucose Calcium Phosphorus Magnesium Total Bilirubin AST ALT Alkaline Phosphatase Ammonia Total Protein Albumin Prealbumin Blood Type A POSITIVE Antibody Screen NEGATIVE 03/20/18 10:24 Abdomen - Specimen From Or Fungal Smear - Final 03/20/18 10:24 Abdomen - Specimen From Or Fungal Smear - Final 03/16/18 03/18/18 03/18/18 05:06 04:45 19:10 CK-MB (CK-2) 1.10 Troponin I < 0.012 < 0.012 NT-Pro-B Natriuret Pep 513 03/18/18 03/20/18 19:50 12:05 CK-MB (CK-2) Troponin I NT-Pro-B Natriuret Pep 272 531 Impressions: KUB X-Ray 03/11/18 00:00 IMPRESSION: There are mildly dilated small bowel loops throughout the left abdomen, developing ileus or obstruction possible. Hepatobiliary Scan Nuclear Medicine 03/12/18 00:00 IMPRESSION: Bile leak in the gallbladder fossa. Catheter Placement 03/14/18 00:00 IMPRESSION: IMAGE(S) OBTAINED DURING PROCEDURE. Fluoroscopy 03/14/18 00:00 IMPRESSION: IMAGE(S) OBTAINED DURING PROCEDURE. Chest/Abdomen CTA 03/18/18 00:00 IMPRESSION: 1 . Status post cholecystectomy with pneumobilia. Upper abdominal ascites and pneumoperitoneum consistent with postsurgical change. 2. Bibasilar atelectasis with pleural effusions. Acute Abdomen Series 03/20/18 00:00 IMPRESSION: Postop ileus. Retroperitoneal Abscess Drainage 03/20/18 00:00 IMPRESSION: Successful CT-guided placement of drainage catheter. Thoracentesis Ultrasound 03/23/18 12:00 IMPRESSION: Small volume right-sided thoracentesis utilizing ultrasound guidance as detailed above. Abdomen/Pelvis CT 03/27/18 00:00 IMPRESSION: SURGICAL CHANGES IN THE GALLBLADDER FOSSA WITH PERCUTANEOUS DRAINAGE CATHETERS. NO SIGNIFICANT RESIDUAL FLUID COLLECTION. SMALL AMOUNT OF ASCITES. NO FOCAL FLUID COLLECTION CONCERNING FOR DEVELOPING ABSCESS. OTHER INCIDENTAL FINDINGS ABOVE. Head CT 03/27/18 10:08 IMPRESSION: NORMAL BRAIN CT WITHOUT CONTRAST. EVIDENCE OF ACUTE STROKE: NO. Chest CT 03/27/18 15:00 IMPRESSION: MODERATE BILATERAL PLEURAL EFFUSIONS WITH BASILAR ATELECTASIS/ CONSOLIDATION. OVERALL NO SIGNIFICANT CHANGE. Interventional Vascular Procedure 03/28/18 00:00 IMPRESSION: SUCCESSFUL PLACEMENT OF A 5 FR DUAL LUMEN 35 CM PICC IN THE LEFT BASILIC VEIN. PICC Line Insertion 03/28/18 00:00 IMPRESSION: SUCCESSFUL PLACEMENT OF A 5 FR DUAL LUMEN 35 CM PICC IN THE LEFT BASILIC VEIN. Chest X-Ray 03/29/18 06:00 IMPRESSION: No change in bilateral trace pleural effusions and bibasilar airspace disease left greater than right. Assessment & Plan - Diagnosis (1) Acute respiratory failure with hypoxia Is this a current diagnosis for this admission?: Yes Plan: Continues to improve daily (2) COPD (chronic obstructive pulmonary disease) Qualifiers: COPD type: unspecified COPD Qualified Code(s): J44.9 - Chronic obstructive pulmonary disease, unspecified Is this a current diagnosis for this admission?: Yes Plan: stable at this time Generic Name Dose Route Start Last Admin Trade Name Freq PRN Reason Stop Dose Admin Nicotine 1 each 03/25/18 14:49 Nicoderm 7 Mg/24 Hr Transdermal Patch TD 04/24/18 14:48 DAILYP PRN WITHDRAWAL SYMPTOMS Tiotropium [place] 1 cap 03/12/18 06:00 03/25/18 05:14 Spiriva Handihaler 5 Cap/Kit (18 Mcg/Cap) IH 04/11/18 05:59 1 cap Q6AM JULIAN Albuterol 2.5 mg 03/17/18 09:20 03/24/18 12:03 Ventolin 0.083% Neb 2.5 Mg/3 Ml Ampul NEB 04/16/18 09:19 2.5 mg RTQ6HP PRN SOB Levalbuterol HCl 0.63 mg 03/25/18 16:00 03/25/18 16:38 Xopenex Neb 0.63 Mg/3 Ml Ampul NEB 04/24/18 15:59 0.63 mg RTQ8 JULIAN (3) Gallbladder cancer Is this a current diagnosis for this admission?: Yes Plan: As per surgery and oncology (4) Tobacco abuse Is this a current diagnosis for this admission?: Yes Plan: Stop smoking transdermal nicotine - Time Total Critical Time (Minutes): 45
[2018-03-29 18:16] LABS: ABSOLUTE BASOPHILS # (AUTO) 0.2 10^3/uL (0.0-0.2); ABSOLUTE EOSINOPHILS # (AUTO) 0.6 10^3/uL (0.0-0.6); ABSOLUTE LYMPHOCYTES (AUTO) 1.9 10^3/uL (0.5-4.7); ABSOLUTE NEUT (AUTO) 14.5 10^3/uL (1.7-8.2); EOSINOPHILS % (AUTO) 3.3 % (0-6); HEMATOCRIT 29.1 % (36.0-47.0); HEMOGLOBIN 9.5 g/dL (12.0-15.5); LYMPHOCYTES % (AUTO) 10.3 % (13-45); MEAN CORPUSCULAR HEMOGLOBIN 27.5 pg (27.0-33.4); MEAN CORPUSCULAR HGB CONC 32.7 g/dL (32.0-36.0); MEAN CORPUSCULAR VOLUME 84 fl (80-97); MONOCYTES % (AUTO) 5.3 % (3-13); PLATELET COUNT 637 10^3/uL (150-450); RED BLOOD COUNT 3.46 10^6/uL (3.72-5.28); RED CELL DISTRIBUTION WIDTH 14.7 % (11.5-14.0); SEGMENTED NEUTROPHILS % (AUTO) 80.1 % (42-78); TOTAL CELLS COUNTED % (AUTO) 100 %; WHITE BLOOD COUNT 18.1 10^3/uL (4.0-10.5)
[2018-03-29] MEDS: PHARMACY COMMUNICATION ORDER MC SCH (21:02)
[2018-03-30] MEDS: MEROPENEM 1 GM in NORMAL SALINE 50 ML IV SCH ×3 (02:04→21:27)
[2018-03-30 04:35] LABS: ABSOLUTE BASOPHILS # (AUTO) 0.1 10^3/uL (0.0-0.2); ABSOLUTE EOSINOPHILS # (AUTO) 0.6 10^3/uL (0.0-0.6); ABSOLUTE LYMPHOCYTES (AUTO) 1.9 10^3/uL (0.5-4.7); ABSOLUTE NEUT (AUTO) 12.1 10^3/uL (1.7-8.2); BASOPHILS % (AUTO) 0.6 % (0-2); EOSINOPHILS % (AUTO) 3.7 % (0-6); HEMATOCRIT 25.8 % (36.0-47.0); HEMOGLOBIN 8.6 g/dL (12.0-15.5); LYMPHOCYTES % (AUTO) 12.1 % (13-45); MEAN CORPUSCULAR HGB CONC 33.4 g/dL (32.0-36.0); MEAN CORPUSCULAR VOLUME 84 fl (80-97); MONOCYTES % (AUTO) 6.5 % (3-13); PLATELET COUNT 566 10^3/uL (150-450); RED BLOOD COUNT 3.08 10^6/uL (3.72-5.28); RED CELL DISTRIBUTION WIDTH 15.2 % (11.5-14.0); SEGMENTED NEUTROPHILS % (AUTO) 77.1 % (42-78); TOTAL CELLS COUNTED % (AUTO) 100 %; WHITE BLOOD COUNT 15.7 10^3/uL (4.0-10.5)
[2018-03-30 04:48] LABS: ALANINE AMINOTRANSFERASE 93 U/L (9-52); ALBUMIN 2.7 g/dL (3.5-5.0); ALKALINE PHOSPHATASE 333 U/L (38-126); ANION GAP 9 (5-19); ASPARTATE AMINO TRANSFERASE 62 U/L (14-36); BILIRUBIN,DIRECT 0.7 mg/dL (0.0-0.4); BILIRUBIN,TOTAL 1.1 mg/dL (0.2-1.3); BLOOD UREA NITROGEN 19 mg/dL (7-20); CALCIUM 8.6 mg/dL (8.4-10.2); CARBON DIOXIDE 29 mmol/L (22-30); CHLORIDE 105 mmol/L (98-107); GLUCOSE 118 mg/dL (75-110); POTASSIUM 3.2 mmol/L (3.6-5.0); SODIUM 142.7 mmol/L (137-145); TOTAL PROTEIN 5.3 g/dL (6.3-8.2)
[2018-03-30] MEDS: BUSPIRONE HCL 10 MG TABLET PO SCH ×3 (05:32→21:29)
[2018-03-30] MEDS: INSULIN REG, HUMAN 100 UNIT/ML 3 ML VIAL (PYX) SUBCUT SCH ×4 (05:32→17:19)
[2018-03-30] MEDS: TIOTROPIUM BROMIDE DPI 5 CAP/KIT (18 MCG/CAP) IH SCH (05:33)
[2018-03-30] MEDS: HEPARIN SOD (PORCINE) 5,000 UNIT/ML 1 ML SYRINGE SUBCUT SCH ×3 (05:33→21:29)
[2018-03-30] MEDS ORDERED: BISACODYL 10 MG SUPP.RECT PR PRN (07:53)
[2018-03-30] MEDS ORDERED: ACETAMINOPHEN 325 MG TABLET PO PRN (07:56)
--- NOTE | 2018-03-30 08:00 | PDOC PROGRESS REPORT ---
Subjective Progress Note for:: 03/30/18 Reason For Visit: GALLBLADDER CANCER Physical Exam Vital Signs: Temp Pulse Resp BP Pulse Ox 99.9 F 84 29 H 131/61 H 96 03/30/18 07:52 03/30/18 07:52 03/30/18 07:52 03/30/18 07:52 03/30/18 07:52 Intake & Output 03/29/18 03/30/18 03/31/18 06:59 06:59 06:59 Intake Total 1429 1530 Output Total 3070 2050 100 Balance -1641 -520 -100 Weight 91.6 kg 89.3 kg General appearance: PRESENT: no acute distress, cooperative Head exam: PRESENT: atraumatic Neck exam: PRESENT: full ROM Respiratory exam: PRESENT: wheezes Cardiovascular exam: PRESENT: RRR Pulses: PRESENT: normal radial pulses, normal femoral pulses GI/Abdominal exam: PRESENT: soft Musculoskeletal exam: PRESENT: full ROM Results Laboratory Results: 03/30/18 04:28 03/30/18 04:28 03/29/18 03/29/18 03/29/18 03:59 03:59 08:59 WBC RBC Hgb Hct MCV MCH MCHC RDW Plt Count Seg Neutrophils % Lymphocytes % Monocytes % Eosinophils % Basophils % Absolute Neutrophils Absolute Lymphocytes Absolute Monocytes Absolute Eosinophils Absolute Basophils Retic Count (auto) 1.55 Absolute Retic 0.043 Sodium Potassium Chloride Carbon Dioxide Anion Gap BUN Creatinine Est GFR ( Amer) Est GFR (Non-Af Amer) Glucose Calcium Magnesium Iron 16.7 L TIBC 172 L % Saturation 10 Ferritin 312.00 H Total Bilirubin AST ALT Alkaline Phosphatase Total Protein Albumin Vitamin B12 587.0 Folate 16.00 Blood Type A POSITIVE Antibody Screen NEGATIVE 03/29/18 03/30/18 03/30/18 17:50 04:28 04:28 WBC 18.1 H 15.7 H RBC 3.46 L 3.08 L Hgb 9.5 L 8.6 L Hct 29.1 L 25.8 L MCV 84 84 MCH 27.5 28.0 MCHC 32.7 33.4 RDW 14.7 H 15.2 H Plt Count 637 H 566 H Seg Neutrophils % 80.1 H 77.1 Lymphocytes % 10.3 L 12.1 L Monocytes % 5.3 6.5 Eosinophils % 3.3 3.7 Basophils % 1.0 0.6 Absolute Neutrophils 14.5 H 12.1 H Absolute Lymphocytes 1.9 1.9 Absolute Monocytes 1.0 1.0 Absolute Eosinophils 0.6 0.6 Absolute Basophils 0.2 0.1 Retic Count (auto) Absolute Retic Sodium 142.7 Potassium 3.2 L Chloride 105 Carbon Dioxide 29 Anion Gap 9 BUN 19 Creatinine 0.43 L Est GFR ( Amer) > 60 Est GFR (Non-Af Amer) > 60 Glucose 118 H Calcium 8.6 Magnesium 2.0 Iron TIBC % Saturation Ferritin Total Bilirubin 1.1 AST 62 H ALT 93 H Alkaline Phosphatase 333 H Total Protein 5.3 L Albumin 2.7 L Vitamin B12 Folate Blood Type Antibody Screen 03/20/18 10:24 Abdomen - Specimen From Or Fungal Smear - Final 03/20/18 10:24 Abdomen - Specimen From Or Fungal Smear - Final 03/16/18 03/18/18 03/18/18 05:06 04:45 19:10 CK-MB (CK-2) 1.10 Troponin I < 0.012 < 0.012 NT-Pro-B Natriuret Pep 513 03/18/18 03/20/18 19:50 12:05 CK-MB (CK-2) Troponin I NT-Pro-B Natriuret Pep 272 659 Impressions: KUB X-Ray 03/11/18 00:00 IMPRESSION: There are mildly dilated small bowel loops throughout the left abdomen, developing ileus or obstruction possible. Hepatobiliary Scan Nuclear Medicine 03/12/18 00:00 IMPRESSION: Bile leak in the gallbladder fossa. Catheter Placement 03/14/18 00:00 IMPRESSION: IMAGE(S) OBTAINED DURING PROCEDURE. Fluoroscopy 03/14/18 00:00 IMPRESSION: IMAGE(S) OBTAINED DURING PROCEDURE. Chest/Abdomen CTA 03/18/18 00:00 IMPRESSION: 1 . Status post cholecystectomy with pneumobilia. Upper abdominal ascites and pneumoperitoneum consistent with postsurgical change. 2. Bibasilar atelectasis with pleural effusions. Acute Abdomen Series 03/20/18 00:00 IMPRESSION: Postop ileus. Retroperitoneal Abscess Drainage 03/20/18 00:00 IMPRESSION: Successful CT-guided placement of drainage catheter. Thoracentesis Ultrasound 03/23/18 12:00 IMPRESSION: Small volume right-sided thoracentesis utilizing ultrasound guidance as detailed above. Abdomen/Pelvis CT 03/27/18 00:00 IMPRESSION: SURGICAL CHANGES IN THE GALLBLADDER FOSSA WITH PERCUTANEOUS DRAINAGE CATHETERS. NO SIGNIFICANT RESIDUAL FLUID COLLECTION. SMALL AMOUNT OF ASCITES. NO FOCAL FLUID COLLECTION CONCERNING FOR DEVELOPING ABSCESS. OTHER INCIDENTAL FINDINGS ABOVE. Head CT 03/27/18 10:08 IMPRESSION: NORMAL BRAIN CT WITHOUT CONTRAST. EVIDENCE OF ACUTE STROKE: NO. Chest CT 03/27/18 15:00 IMPRESSION: MODERATE BILATERAL PLEURAL EFFUSIONS WITH BASILAR ATELECTASIS/ CONSOLIDATION. OVERALL NO SIGNIFICANT CHANGE. Interventional Vascular Procedure 03/28/18 00:00 IMPRESSION: SUCCESSFUL PLACEMENT OF A 5 FR DUAL LUMEN 35 CM PICC IN THE LEFT BASILIC VEIN. PICC Line Insertion 03/28/18 00:00 IMPRESSION: SUCCESSFUL PLACEMENT OF A 5 FR DUAL LUMEN 35 CM PICC IN THE LEFT BASILIC VEIN. Assessment & Plan - Diagnosis (1) Acute respiratory failure with hypoxia Is this a current diagnosis for this admission?: Yes (3) Bile leak, postoperative Is this a current diagnosis for this admission?: Yes (4) Full code status Is this a current diagnosis for this admission?: Yes - Plan Summary Plan Summary: doing sl better on po diet still iwth poor appetite some sob last pm but using bipap less abd soft, non tender drain still with 10-20 cc/day plan will dc tpn tylenol for pain dulcolax suppositiory today lasix 40mg iv bid physical rx awaiting stepdown bed
--- NOTE | 2018-03-30 08:03 | PDOC PROGRESS REPORT ---
Subjective Progress Note for:: 03/30/18 Subjective:: Patient currently doing well, hopefully will be downgraded to regular floor bed Reason For Visit: GALLBLADDER CANCER Physical Exam Vital Signs: Temp Pulse Resp BP Pulse Ox 99.9 F 84 29 H 131/61 H 96 03/30/18 07:52 03/30/18 07:52 03/30/18 07:52 03/30/18 07:52 03/30/18 07:52 Intake & Output 03/29/18 03/30/18 03/31/18 06:59 06:59 06:59 Intake Total 1429 1530 Output Total 3070 2050 100 Balance -1641 -520 -100 Weight 91.6 kg 89.3 kg General appearance: PRESENT: no acute distress, well-developed, well-nourished Head exam: PRESENT: atraumatic, normocephalic Eye exam: PRESENT: conjunctiva pink, EOMI, PERRLA. ABSENT: scleral icterus Ear exam: PRESENT: normal external ear exam Mouth exam: PRESENT: moist, tongue midline Neck exam: ABSENT: carotid bruit, JVD, lymphadenopathy, thyromegaly Respiratory exam: PRESENT: clear to auscultation christian. ABSENT: rales, rhonchi, wheezes Cardiovascular exam: PRESENT: RRR. ABSENT: diastolic murmur, rubs, systolic murmur Pulses: PRESENT: normal dorsalis pedis pul Vascular exam: PRESENT: normal capillary refill GI/Abdominal exam: PRESENT: normal bowel sounds, soft. ABSENT: distended, guarding, mass, organolmegaly, rebound, tenderness Rectal exam: PRESENT: deferred Extremities exam: PRESENT: full ROM. ABSENT: calf tenderness, clubbing, pedal edema Neurological exam: PRESENT: alert, awake, oriented to person, oriented to place, oriented to time, oriented to situation, CN II-XII grossly intact. ABSENT: motor sensory deficit Psychiatric exam: PRESENT: appropriate affect, normal mood. ABSENT: homicidal ideation, suicidal ideation Skin exam: PRESENT: dry, intact, warm. ABSENT: cyanosis, rash Results Laboratory Results: 03/30/18 04:28 03/30/18 04:28 03/29/18 03/29/18 03/29/18 03:59 03:59 08:59 WBC RBC Hgb Hct MCV MCH MCHC RDW Plt Count Seg Neutrophils % Lymphocytes % Monocytes % Eosinophils % Basophils % Absolute Neutrophils Absolute Lymphocytes Absolute Monocytes Absolute Eosinophils Absolute Basophils Retic Count (auto) 1.55 Absolute Retic 0.043 Sodium Potassium Chloride Carbon Dioxide Anion Gap BUN Creatinine Est GFR ( Amer) Est GFR (Non-Af Amer) Glucose Calcium Magnesium Iron 16.7 L TIBC 172 L % Saturation 10 Ferritin 312.00 H Total Bilirubin AST ALT Alkaline Phosphatase Total Protein Albumin Vitamin B12 587.0 Folate 16.00 Blood Type A POSITIVE Antibody Screen NEGATIVE 03/29/18 03/30/18 03/30/18 17:50 04:28 04:28 WBC 18.1 H 15.7 H RBC 3.46 L 3.08 L Hgb 9.5 L 8.6 L Hct 29.1 L 25.8 L MCV 84 84 MCH 27.5 28.0 MCHC 32.7 33.4 RDW 14.7 H 15.2 H Plt Count 637 H 566 H Seg Neutrophils % 80.1 H 77.1 Lymphocytes % 10.3 L 12.1 L Monocytes % 5.3 6.5 Eosinophils % 3.3 3.7 Basophils % 1.0 0.6 Absolute Neutrophils 14.5 H 12.1 H Absolute Lymphocytes 1.9 1.9 Absolute Monocytes 1.0 1.0 Absolute Eosinophils 0.6 0.6 Absolute Basophils 0.2 0.1 Retic Count (auto) Absolute Retic Sodium 142.7 Potassium 3.2 L Chloride 105 Carbon Dioxide 29 Anion Gap 9 BUN 19 Creatinine 0.43 L Est GFR ( Amer) > 60 Est GFR (Non-Af Amer) > 60 Glucose 118 H Calcium 8.6 Magnesium 2.0 Iron TIBC % Saturation Ferritin Total Bilirubin 1.1 AST 62 H ALT 93 H Alkaline Phosphatase 333 H Total Protein 5.3 L Albumin 2.7 L Vitamin B12 Folate Blood Type Antibody Screen 03/20/18 10:24 Abdomen - Specimen From Or Fungal Smear - Final 03/20/18 10:24 Abdomen - Specimen From Or Fungal Smear - Final 03/16/18 03/18/18 03/18/18 05:06 04:45 19:10 CK-MB (CK-2) 1.10 Troponin I < 0.012 < 0.012 NT-Pro-B Natriuret Pep 513 03/18/18 03/20/18 19:50 12:05 CK-MB (CK-2) Troponin I NT-Pro-B Natriuret Pep 643 386 Impressions: KUB X-Ray 03/11/18 00:00 IMPRESSION: There are mildly dilated small bowel loops throughout the left abdomen, developing ileus or obstruction possible. Hepatobiliary Scan Nuclear Medicine 03/12/18 00:00 IMPRESSION: Bile leak in the gallbladder fossa. Catheter Placement 03/14/18 00:00 IMPRESSION: IMAGE(S) OBTAINED DURING PROCEDURE. Fluoroscopy 03/14/18 00:00 IMPRESSION: IMAGE(S) OBTAINED DURING PROCEDURE. Chest/Abdomen CTA 03/18/18 00:00 IMPRESSION: 1 . Status post cholecystectomy with pneumobilia. Upper abdominal ascites and pneumoperitoneum consistent with postsurgical change. 2. Bibasilar atelectasis with pleural effusions. Acute Abdomen Series 03/20/18 00:00 IMPRESSION: Postop ileus. Retroperitoneal Abscess Drainage 03/20/18 00:00 IMPRESSION: Successful CT-guided placement of drainage catheter. Thoracentesis Ultrasound 03/23/18 12:00 IMPRESSION: Small volume right-sided thoracentesis utilizing ultrasound justina dance as detailed above. Abdomen/Pelvis CT 03/27/18 00:00 IMPRESSION: SURGICAL CHANGES IN THE GALLBLADDER FOSSA WITH PERCUTANEOUS DRAINAGE CATHETERS. NO SIGNIFICANT RESIDUAL FLUID COLLECTION. SMALL AMOUNT OF ASCITES. NO FOCAL FLUID COLLECTION CONCERNING FOR DEVELOPING ABSCESS. OTHER INCIDENTAL FINDINGS ABOVE. Head CT 03/27/18 10:08 IMPRESSION: NORMAL BRAIN CT WITHOUT CONTRAST. EVIDENCE OF ACUTE STROKE: NO. Chest CT 03/27/18 15:00 IMPRESSION: MODERATE BILATERAL PLEURAL EFFUSIONS WITH BASILAR ATELECTASIS/ CONSOLIDATION. OVERALL NO SIGNIFICANT CHANGE. Interventional Vascular Procedure 03/28/18 00:00 IMPRESSION: SUCCESSFUL PLACEMENT OF A 5 FR DUAL LUMEN 35 CM PICC IN THE LEFT BASILIC VEIN. PICC Line Insertion 03/28/18 00:00 IMPRESSION: SUCCESSFUL PLACEMENT OF A 5 FR DUAL LUMEN 35 CM PICC IN THE LEFT BASILIC VEIN. Assessment & Plan - Diagnosis (1) Gallbladder cancer Is this a current diagnosis for this admission?: Yes Plan: Most likely will have rehab placement when medically ready. We will not give any chemotherapy until patient is out of rehab. At that time will assess whether patient can tolerate treatment.
[2018-03-30] MEDS: LEVALBUTEROL HCL NEB 0.63 MG/3 ML AMPUL NEB SCH ×2 (08:07→16:31)
--- NOTE | 2018-03-30 08:19 | RADIOLOGY REPORT (SQ) ---
EXAM DESCRIPTION: CHEST SINGLE VIEW COMPLETED DATE/TIME: 03/30/2018 6:41 am REASON FOR STUDY: persistent cough COMPARISON: CT chest 03/27/2018 Chest films 03/28/2018, 03/29/2018 EXAM PARAMETERS: NUMBER OF VIEWS: One view. TECHNIQUE: Single frontal radiographic view of the chest acquired. RADIATION DOSE: NA LIMITATIONS: None. FINDINGS: LUNGS AND PLEURA: Small to moderate bilateral pleural effusions are now present. There is pulmonary vascular congestion with perihilar pulmonary edema. Left retrocardiac consolidati on is present, atelectasis versus pneumonia. No pneumothorax MEDIASTINUM AND HILAR STRUCTURES: No masses. Contour normal. HEART AND VASCULAR STRUCTURES: Moderate cardiomegaly BONES: No acute findings. HARDWARE: Left PICC line tip superior vena cava OTHER: No other significant finding. IMPRESSION: New Small to moderate bilateral pleural effusions, pulmonary vascular congestion with al veolar and interstitial edema. Left retrocardiac consolidation atelectasis versus pneumonia. TECHNICAL DOCUMENTATION: JOB ID: [id number] [employer]- All Rights Reserved Reading location - IP/workstation name: [email or web address]
[2018-03-30] MEDS ORDERED: POTASSIUM CHLORIDE 20 MEQ/50 ML RTU IV SCH (09:00)
--- NOTE | 2018-03-30 12:01 | PDOC PROGRESS REPORT ---
Subjective Progress Note for:: 03/30/18 Subjective:: continues to be alert and interactive today Reason For Visit: GALLBLADDER CANCER Physical Exam Vital Signs: Temp Pulse Resp BP Pulse Ox 100.9 F H 92 23 H 131/61 H 95 03/30/18 10:00 03/30/18 08:05 03/30/18 10:00 03/30/18 07:52 03/30/18 10:00 Intake & Output 03/29/18 03/30/18 03/31/18 06:59 06:59 06:59 Intake Total 1429 2530 Output Total 3070 2050 150 Balance -1641 480 -150 Weight 91.6 kg 89.3 kg General appearance: PRESENT: no acute distress, cooperative, disheveled, obese Head exam: PRESENT: atraumatic, normocephalic Eye exam: PRESENT: conjunctiva pale, EOMI. ABSENT: nystagmus Mouth exam: PRESENT: dry mucosa, neck supple, tongue midline Neck exam: ABSENT: carotid bruit, JVD, lymphadenopathy, thyromegaly, tracheal deviation, tracheostomy Respiratory exam: PRESENT: decreased breath sounds, prolonged expiratory phas, rales, rhonchi, unlabored. ABSENT: retraction, stridor, tachypnea Cardiovascular exam: PRESENT: RRR, +S1, +S2 Pulses: PRESENT: normal radial pulses GI/Abdominal exam: PRESENT: other - s/p surgery Extremities exam: ABSENT: calf tenderness, clubbing, joint swelling Musculoskeletal exam: ABSENT: deformity, dislocation Neurological exam: PRESENT: alert, awake Psychiatric exam: PRESENT: appropriate affect Skin exam: PRESENT: dry, warm Results Laboratory Results: 03/30/18 04:28 03/30/18 04:28 03/29/18 03/29/18 03/30/18 03:59 17:50 04:28 WBC 18.1 H 15.7 H RBC 3.46 L 3.08 L Hgb 9.5 L 8.6 L Hct 29.1 L 25.8 L MCV 84 84 MCH 27.5 28.0 MCHC 32.7 33.4 RDW 14.7 H 15.2 H Plt Count 637 H 566 H Seg Neutrophils % 80.1 H 77.1 Lymphocytes % 10.3 L 12.1 L Monocytes % 5.3 6.5 Eosinophils % 3.3 3.7 Basophils % 1.0 0.6 Absolute Neutrophils 14.5 H 12.1 H Absolute Lymphocytes 1.9 1.9 Absolute Monocytes 1.0 1.0 Absolute Eosinophils 0.6 0.6 Absolute Basophils 0.2 0.1 Sodium Potassium Chloride Carbon Dioxide Anion Gap BUN Creatinine Est GFR ( Amer) Est GFR (Non-Af Amer) Glucose Calcium Magnesium Iron 16.7 L TIBC 172 L % Saturation 10 Ferritin 312.00 H Total Bilirubin AST ALT Alkaline Phosphatase Total Protein Albumin Vitamin B12 587.0 Folate 16.00 03/30/18 04:28 WBC RBC Hgb Hct MCV MCH MCHC RDW Plt Count Seg Neutrophils % Lymphocytes % Monocytes % Eosinophils % Basophils % Absolute Neutrophils Absolute Lymphocytes Absolute Monocytes Absolute Eosinophils Absolute Basophils Sodium 142.7 Potassium 3.2 L Chloride 105 Carbon Dioxide 29 Anion Gap 9 BUN 19 Creatinine 0.43 L Est GFR ( Amer) > 60 Est GFR (Non-Af Amer) > 60 Glucose 118 H Calcium 8.6 Magnesium 2.0 Iron TIBC % Saturation Ferritin Total Bilirubin 1.1 AST 62 H ALT 93 H Alkaline Phosphatase 333 H Total Protein 5.3 L Albumin 2.7 L Vitamin B12 Folate 03/20/18 10:24 Abdomen - Specimen From Or Fungal Smear - Final 03/20/18 10:24 Abdomen - Specimen From Or Fungal Smear - Final 03/16/18 03/18/18 03/18/18 05:06 04:45 19:10 CK-MB (CK-2) 1.10 Troponin I < 0.012 < 0.012 NT-Pro-B Natriuret Pep 513 03/18/18 03/20/18 19:50 12:05 CK-MB (CK-2) Troponin I NT-Pro-B Natriuret Pep 272 659 Impressions: KUB X-Ray 03/11/18 00:00 IMPRESSION: There are mildly dilated small bowel loops throughout the left abdomen, developing ileus or obstruction possible. Hepatobiliary Scan Nuclear Medicine 03/12/18 00:00 IMPRESSION: Bile leak in the gallbladder fossa. Catheter Placement 03/14/18 00:00 IMPRESSION: IMAGE(S) OBTAINED DURING PROCEDURE. Fluoroscopy 03/14/18 00:00 IMPRESSION: IMAGE(S) OBTAINED DURING PROCEDURE. Chest/Abdomen CTA 03/18/18 00:00 IMPRESSION: 1 . Status post cholecystectomy with pneumobilia. Upper abdominal ascites and pneumoperitoneum consistent with postsurgical change. 2. Bibasilar atelectasis with pleural effusions. Acute Abdomen Series 03/20/18 00:00 IMPRESSION: Postop ileus. Retroperitoneal Abscess Drainage 03/20/18 00:00 IMPRESSION: Successful CT-guided placement of drainage catheter. Thoracentesis Ultrasound 03/23/18 12:00 IMPRESSION: Small volume right-sided thoracentesis utilizing ultrasound guidance as detailed above. Abdomen/Pelvis CT 03/27/18 00:00 IMPRESSION: SURGICAL CHANGES IN THE GALLBLADDER FOSSA WITH PERCUTANEOUS DRAINAGE CATHETERS. NO SIGNIFICANT RESIDUAL FLUID COLLECTION. SMALL AMOUNT OF ASCITES. NO FOCAL FLUID COLLECTION CONCERNING FOR DEVELOPING ABSCESS. OTHER INCIDENTAL FINDINGS ABOVE. Head CT 03/27/18 10:08 IMPRESSION: NORMAL BRAIN CT WITHOUT CONTRAST. EVIDENCE OF ACUTE STROKE: NO. Chest CT 03/27/18 15:00 IMPRESSION: MODERATE BILATERAL PLEURAL EFFUSIONS WITH BASILAR ATELECTASIS/ CONSOLIDATION. OVERALL NO SIGNIFICANT CHANGE. Interventional Vascular Procedure 03/28/18 00:00 IMPRESSION: SUCCESSFUL PLACEMENT OF A 5 FR DUAL LUMEN 35 CM PICC IN THE LEFT BASILIC VEIN. PICC Line Insertion 03/28/18 00:00 IMPRESSION: SUCCESSFUL PLACEMENT OF A 5 FR DUAL LUMEN 35 CM PICC IN THE LEFT BASILIC VEIN. Chest X-Ray 03/30/18 00:00 IMPRESSION: New Small to moderate bilateral pleural effusions, pulmonary vascular congestion with alveolar and interstitial edema. Left retrocardiac consolidation atelectasis versus pneumonia. Assessment & Plan - Diagnosis (1) Acute respiratory failure with hypoxia Is this a current diagnosis for this admission?: Yes Plan: Continues to improve daily (2) COPD (chronic obstructive pulmonary disease) Qualifiers: COPD type: unspecified COPD Qualified Code(s): J44.9 - Chronic obstructive pulmonary disease, unspecified Is this a current diagnosis for this admission?: Yes Plan: stable at this time Generic Name Dose Route Start Last Admin Trade Name Freq PRN Reason Stop Dose Admin Nicotine 1 each 03/25/18 14:49 Nicoderm 7 Mg/24 Hr Transdermal Patch TD 04/24/18 14:48 DAILYP PRN WITHDRAWAL SYMPTOMS Tiotropium [place] 1 cap 03/12/18 06:00 03/25/18 05:14 Spiriva Handihaler 5 Cap/Kit (18 Mcg/Cap) IH 04/11/18 05:59 1 cap Q6AM JULIAN Albuterol 2.5 mg 03/17/18 09:20 03/24/18 12:03 Ventolin 0.083% Neb 2.5 Mg/3 Ml Ampul NEB 04/16/18 09:19 2.5 mg [id number] PRN SOB Levalbuterol HCl 0.63 mg 03/25/18 16:00 03/25/18 16:38 Xopenex Neb 0.63 Mg/3 Ml Ampul NEB 04/24/18 15:59 0.63 mg RTQ8 JULIAN (3) Gallbladder cancer Is this a current diagnosis for this admission?: Yes Plan: As per surgery and oncology (4) Tobacco abuse Is this a current diagnosis for this admission?: Yes Plan: Stop smoking transdermal nicotine - Time Total Critical Time (Minutes): 40
[2018-03-30] MEDS: FAMOTIDINE INJ/PF 20 MG/2 ML SDV IV SCH ×2 (12:38→21:30)
[2018-03-30] MEDS: SENNOSIDES/DOCUSATE 8.6-50 MG 1 EACH TABLET PO SCH ×2 (12:38→17:19)
[2018-03-30] MEDS: FUROSEMIDE INJ/PF 40 MG/4 ML SDV IV SCH ×2 (12:38→21:28)
[2018-03-30] MEDS: SALMETEROL XINAFOATE DISKUS 50 MCG/1 DOSE 28 DOSE IH SCH ×2 (12:39→21:27)
[2018-03-30] MEDS: FLUCONAZOLE 200 MG/NS RTU 200 MG/100 ML RTUPB IV SCH (12:39)
[2018-03-30] MEDS: LIDOCAINE 5% (700 MG) TRANSDERMAL ADH..PATCH TP SCH (12:39)
[2018-03-30] MEDS: POTASSIUM CHLORIDE 20 MEQ/50 ML RTU IV SCH ×3 (13:42→17:16)
[2018-03-30] MEDS: OXYCODONE-ACETAMINOPHEN 5-325 MG TABLET NG PRN (21:29)
[2018-03-30] MEDS: PHARMACY COMMUNICATION ORDER MC SCH (21:30)
--- NOTE | 2018-03-30 21:44 | PDOC PROGRESS REPORT ---
Subjective Progress Note for:: 03/30/18 Subjective:: 63 y.o. F with HTN, asthma and COPD [facility] for c holecystectomy to remove cancerous gallbladder. Within days of surgery there was a large amount of output noted in her JASKARAN drain. The patient underwent an ERCP on 03/14/2018 with CBD stent placement. Within 24hrs she began developing signs of sepsis and the hospitalist service was consulted for medical management. The patient was seen on morning rounds while her was present. She was extubated (03/24/18 @1700) and is weaned to BIPAP (QHS) and nasal cannula during the day. She is fully awake today, A&Ox4, follows all commands. Currently on meropenem for sepsis secondary to bile leak following radical cholecystectomy and partial hepatectomy for metastatic gallbladder cancer. Percutaneous drain placed by interventional radiology. Cultures growing Klebsiella pneumoniae, enterococcus, yeast. Patient w/ third spacing (gradual improvement); receiving TPN. Cleared by speech for oral intake. NG d/c'd. TPN d/c'd. Blood and urine cultures from 03/27/2018 show no growth Surgery reports they plan to downgrade to IMCU Reason For Visit: GALLBLADDER CANCER Physical Exam Vital Signs: Temp Pulse Resp BP Pulse Ox 98.5 F 99 32 H 124/65 93 03/30/18 21:11 03/30/18 21:11 03/30/18 21:11 03/30/18 21:11 03/30/18 21:11 Intake & Output 03/29/18 03/30/18 03/31/18 06:59 06:59 06:59 Intake Total 1429 2530 644 Output Total 3070 2050 1801 Balance -1641 480 -1157 Weight 91.6 kg 89.3 kg General appearance: PRESENT: obese Eye exam: PRESENT: PERRLA Mouth exam: PRESENT: tongue midline, other - tacky mucosa Neck exam: PRESENT: full ROM Respiratory exam: PRESENT: clear to auscultation christian, decreased breath sounds - diminished bilaterally in lower lobes, symmetrical, unlabored - requiring supplemental o2 Cardiovascular exam: PRESENT: RRR Pulses: PRESENT: normal radial pulses Vascular exam: PRESENT: normal capillary refill GI/Abdominal exam: PRESENT: normal bowel sounds, soft, tenderness - RUQ. ABSENT: distended Rectal exam: PRESENT: deferred Extremities exam: PRESENT: full ROM Musculoskeletal exam: PRESENT: ambulatory - with assistance, full ROM Neurological exam: PRESENT: alert, awake, oriented to person, oriented to place, oriented to time, oriented to situation Psychiatric exam: PRESENT: appropriate affect Skin exam: PRESENT: dry, intact, pallor Results Laboratory Results: 03/30/18 04:28 03/30/18 04:28 03/30/18 03/30/18 04:28 04:28 WBC 15.7 H RBC 3.08 L Hgb 8.6 L Hct 25.8 L MCV 84 MCH 28.0 MCHC 33.4 RDW 15.2 H Plt Count 566 H Seg Neutrophils % 77.1 Lymphocytes % 12.1 L Monocytes % 6.5 Eosinophils % 3.7 Basophils % 0.6 Absolute Neutrophils 12.1 H Absolute Lymphocytes 1.9 Absolute Monocytes 1.0 Absolute Eosinophils 0.6 Absolute Basophils 0.1 Sodium 142.7 Potassium 3.2 L Chloride 105 Carbon Dioxide 29 Anion Gap 9 BUN 19 Creatinine 0.43 L Est GFR ( Amer) > 60 Est GFR (Non-Af Amer) > 60 Glucose 118 H Calcium 8.6 Magnesium 2.0 Total Bilirubin 1.1 AST 62 H ALT 93 H Alkaline Phosphatase 333 H Total Protein 5.3 L Albumin 2.7 L 03/16/18 03/18/18 03/18/18 05:06 04:45 19:10 CK-MB (CK-2) 1.10 Troponin I < 0.012 < 0.012 NT-Pro-B Natriuret Pep 513 03/18/18 03/20/18 19:50 12:05 CK-MB (CK-2) Troponin I NT-Pro-B Natriuret Pep 272 659 Impressions: KUB X-Ray 03/11/18 00:00 IMPRESSION: There are mildly dilated small bowel loops throughout the left abdomen, developing ileus or obstruction possible. Hepatobiliary Scan Nuclear Medicine 03/12/18 00:00 IMPRESSION: Bile leak in the gallbladder fossa. Catheter Placement 03/14/18 00:00 IMPRESSION: IMAGE(S) OBTAINED DURING PROCEDURE. Fluoroscopy 03/14/18 00:00 IMPRESSION: IMAGE(S) OBTAINED DURING PROCEDURE. Chest/Abdomen CTA 03/18/18 00:00 IMPRESSION: 1 . Status post cholecystectomy with pneumobilia. Upper abdominal ascites and pneumoperitoneum consistent with postsurgical change. 2. Bibasilar atelectasis with pleural effusions. Acute Abdomen Series 03/20/18 00:00 IMPRESSION: Postop ileus. Retroperitoneal Abscess Drainage 03/20/18 00:00 IMPRESSION: Successful CT-guided placement of drainage catheter. Thoracentesis Ultrasound 03/23/18 12:00 IMPRESSION: Small volume right-sided thoracentesis utilizing ultrasound guidance as detailed above. Abdomen/Pelvis CT 03/27/18 00:00 IMPRESSION: SURGICAL CHANGES IN THE GALLBLADDER FOSSA WITH PERCUTANEOUS DRAINAGE CATHETERS. NO SIGNIFICANT RESIDUAL FLUID COLLECTION. SMALL AMOUNT OF ASCITES. NO FOCAL FLUID COLLECTION CONCERNING FOR DEVELOPING ABSCESS. OTHER INCIDENTAL FINDINGS ABOVE. Head CT 03/27/18 10:08 IMPRESSION: NORMAL BRAIN CT WITHOUT CONTRAST. EVIDENCE OF ACUTE STROKE: NO. Chest CT 03/27/18 15:00 IMPRESSION: MODERATE BILATERAL PLEURAL EFFUSIONS WITH BASILAR ATELECTASIS/ CONSOLIDATION. OVERALL NO SIGNIFICANT CHANGE. Interventional Vascular Procedure 03/28/18 00:00 IMPRESSION: SUCCESSFUL PLACEMENT OF A 5 FR DUAL LUMEN 35 CM PICC IN THE LEFT BASILIC VEIN. PICC Line Insertion 03/28/18 00:00 IMPRESSION: SUCCESSFUL PLACEMENT OF A 5 FR DUAL LUMEN 35 CM PICC IN THE LEFT BASILIC VEIN. Chest X-Ray 03/30/18 00:00 IMPRESSION: New Small to moderate bilateral pleural effusions, pulmonary vascular congestion with alveolar and interstitial edema. Left retrocardiac consolidation atelectasis versus pneumonia. Assessment & Plan - Diagnosis (1) Sepsis Is this a current diagnosis for this admission?: No Plan: Improving. Continues to have low grade temps (100.3), WBCs improving today (13.5-> 10.6-> 14.7->16.3->14.7). Sepsis secondary to intra-abdominal infection. Evidence by tachycardia, leukocyosis, fever (AQPF106.2), tachypnea (RR 24-40) No evidence of PNA. Blood cultures (03/16/18, 03/20/18, 03/27/18) negative at 5 days. Now s/p percutaneous drain placement. Peritoneal fluid C/S growing klebsiella pneumoniae, enterococcus faecalis, yeast. AFB and Fungal smears pending. Sputum culture shows yeast. Thoracic fluid AFB smear pending. Culture has no growth (final). Repeat CT Chest shows moderate b/l pleural effusions, essentially unchanged. Influenza A/B negative Continue Meropenem, IV Diflucan. Vancomycin discontinued 03/25/18 Previously received Cipro pre-operatively before Ex Lap, postoperatively received Ancef and Flagyl 03/06-03/13 (2) Respiratory failure Qualifiers: Chronicity: acute Is this a current diagnosis for this admission?: Yes Plan: Improved; tolerating BiPAP QHS; Nasal cannula during the day Secondary to poor respiratory effort/splinting stemming from postoperative pain resulting in atelectasis and bilateral pleural effusions; complicated by sepsis. Bilateral pleural effusions on CTA; R>L. Continue to be present on CXR and CT. ProBNP 659, echocardiogram is reassuring. LVEF 65%, normal diastolic function Thoracentesis; only 20 mL out Repeat Chest CT 03/27 shows moderate b/l pleural effusions, basically unchanged from previous imaging studies Influenza negative Continue supplemental oxygen, non-invasive positive pressure mechanical ventilation as needed to maintain oxygen saturations. Scheduled and as needed nebulizer treatments. Spiriva and Serevent. Continue to diuresis as BP and kidney function allows - lasix BID Pulmonology is consulted; appreciate Dr. Booth's assistance. 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 Tadeo's assistance. Surgery is primary; appreciate Dr. Michaud's expertise with surgical/oncological cases. Swallow evaluation yesterday, patient able to tolerate solid foods, plan for diet initiation Carb meal pattern with thin liquids, no straws No longer requiring TPN (4) Anxiety Is this a current diagnosis for this admission?: Yes Plan: Patient has a PMH of anxiety Family reports the patient has been significantly anxious while inpatient Ativan 1 mg PO every 4 hours as needed. BuSpar three times daily. (5) Hypotension Is this a current diagnosis for this admission?: Yes Plan: Resolved; blood pressures are now stable Secondary to sepsis. Off robert-Synephrine. Previously provided albumin and Hespan. BID IV lasix for fluid mobilization. TPN d/c'd (6) Postoperative pain Is this a current diagnosis for this admission?: Yes Plan: Status post cholecystectomy and ERCP Postoperative pain may have contributed to her acute respiratory failure with hypoxia secondary to splinting. Continue providing analgesics as needed. Oxycodone, IV tylenol or toradaol is available. Lidoderm patches, repositioning. (7) Full code status Is this a current diagnosis for this admission?: Yes (8) Anemia Qualifiers: Other causes of anemia: chronic disease, other Is this a current diagnosis for this admission?: Yes Plan: Hgb 8.6 today Occult stool negative No evidence of ongoing bleeding. Will monitor closely and continue to provide additional PRBC for Hgb <8 Registered dietitian is consulted (9) COPD (chronic obstructive pulmonary disease) Qualifiers: COPD type: unspecified COPD Qualified Code(s): J44.9 - Chronic obstructive pulmonary disease, unspecified Is this a current diagnosis for this admission?: Yes Plan: Without exacerbation at this time. Management as above. (10) Tobacco abuse Is this a current diagnosis for this admission?: Yes Plan: Nicotine replacement therapy is offered. (11) Debility Is this a current diagnosis for this admission?: Yes Plan: PT/OT Patient able to sit on edge of bed. Discharge planning is consulted. Family goal is to discharge to home with home health services. - Time Time Spent with patient: 15-24 minutes Medications reviewed and adjusted accordingly: Yes Anticipated discharge: Home with Homehealth - Inpatient Certification Based on my medical assessment, after consideration of the patient's comorbidities, presenting symptoms, or acuity I expect that the services needed warrant INPATIENT care.: Yes I certify that my determination is in accordance with my understanding of Medicare's requirements for reasonable and necessary INPATIENT services [42 CFR 412.3e].: Yes Medical Necessity: Significant Comorbidiites Make Outpatient Treatment Too Risky
[2018-03-30] MEDS ORDERED: ALBUMIN HUMAN 12.5 GM/50 ML RTUINJ IV ONE (22:00)
[2018-03-31] MEDS: INSULIN REG, HUMAN 100 UNIT/ML 3 ML VIAL (PYX) SUBCUT SCH ×5 (00:01→21:56)
[2018-03-31] MEDS: LEVALBUTEROL HCL NEB 0.63 MG/3 ML AMPUL NEB SCH ×4 (00:29→19:57)
[2018-03-31] MEDS: LORAZEPAM 1 MG TABLET NG PRN ×3 (02:54→15:01)
[2018-03-31] MEDS ORDERED: NORMAL SALINE 10 ML SDV (AFTER EACH USE) IV PRN (03:30)
[2018-03-31] MEDS: ALBUTEROL SULFATE 0.083% NEB 2.5 MG/3 ML AMPUL NEB PRN (03:39)
[2018-03-31] MEDS: HEPARIN SOD (PORCINE) 5,000 UNIT/ML 1 ML SYRINGE SUBCUT SCH ×3 (05:33→21:29)
[2018-03-31] MEDS: BUSPIRONE HCL 10 MG TABLET PO SCH ×3 (05:33→21:30)
[2018-03-31] MEDS: MEROPENEM 1 GM in NORMAL SALINE 50 ML IV SCH ×3 (05:33→21:29)
[2018-03-31] MEDS: TIOTROPIUM BROMIDE DPI 5 CAP/KIT (18 MCG/CAP) IH SCH (05:43)
[2018-03-31 06:32] LABS: ABSOLUTE BASOPHILS # (AUTO) 0.1 10^3/uL (0.0-0.2); ABSOLUTE EOSINOPHILS # (AUTO) 0.4 10^3/uL (0.0-0.6); ABSOLUTE LYMPHOCYTES (AUTO) 1.9 10^3/uL (0.5-4.7); ABSOLUTE NEUT (AUTO) 10.7 10^3/uL (1.7-8.2); BASOPHILS % (AUTO) 0.8 % (0-2); HEMATOCRIT 25.3 % (36.0-47.0); HEMOGLOBIN 8.6 g/dL (12.0-15.5); LYMPHOCYTES % (AUTO) 13.5 % (13-45); MEAN CORPUSCULAR HEMOGLOBIN 28.2 pg (27.0-33.4); MEAN CORPUSCULAR HGB CONC 33.8 g/dL (32.0-36.0); MEAN CORPUSCULAR VOLUME 83 fl (80-97); MONOCYTES % (AUTO) 7.2 % (3-13); PLATELET COUNT 575 10^3/uL (150-450); RED BLOOD COUNT 3.03 10^6/uL (3.72-5.28); RED CELL DISTRIBUTION WIDTH 15.7 % (11.5-14.0); SEGMENTED NEUTROPHILS % (AUTO) 75.5 % (42-78); TOTAL CELLS COUNTED % (AUTO) 100 %; WHITE BLOOD COUNT 14.2 10^3/uL (4.0-10.5)
[2018-03-31 06:52] LABS: ALANINE AMINOTRANSFERASE 73 U/L (9-52); ALBUMIN 2.9 g/dL (3.5-5.0); ALKALINE PHOSPHATASE 304 U/L (38-126); ANION GAP 9 (5-19); ASPARTATE AMINO TRANSFERASE 39 U/L (14-36); BILIRUBIN,DIRECT 0.6 mg/dL (0.0-0.4); BLOOD UREA NITROGEN 15 mg/dL (7-20); CALCIUM 8.7 mg/dL (8.4-10.2); CARBON DIOXIDE 31 mmol/L (22-30); CHLORIDE 103 mmol/L (98-107); GLUCOSE 85 mg/dL (75-110); POTASSIUM 3.2 mmol/L (3.6-5.0); SODIUM 142.9 mmol/L (137-145); TOTAL PROTEIN 5.4 g/dL (6.3-8.2)
[2018-03-31] MEDS ORDERED: POTASSIUM CHLORIDE 10 MEQ CAPSULE.ER PO ONE (09:07)
--- NOTE | 2018-03-31 09:13 | PDOC PROGRESS REPORT ---
Subjective Progress Note for:: 03/31/18 Reason For Visit: GALLBLADDER CANCER Physical Exam Vital Signs: Temp Pulse Resp BP Pulse Ox 98.3 F 91 34 H 137/65 H 95 03/31/18 07:57 03/31/18 08:30 03/31/18 08:30 03/31/18 07:57 03/31/18 08:30 Intake & Output 03/30/18 03/31/18 04/01/18 06:59 06:59 06:59 Intake Total 2530 794 Output Total 5493 7279 Balance 480 -2992 Weight 89.3 kg 88.9 kg General appearance: PRESENT: cooperative, other - mild sob off o2 Respiratory exam: PRESENT: clear to auscultation christian, decreased breath sounds Cardiovascular exam: PRESENT: RRR Pulses: PRESENT: normal radial pulses, normal femoral pulses GI/Abdominal exam: PRESENT: soft Results Laboratory Results: 03/31/18 05:38 03/31/18 05:38 03/31/18 03/31/18 05:38 05:38 WBC 14.2 H RBC 3.03 L Hgb 8.6 L Hct 25.3 L MCV 83 MCH 28.2 MCHC 33.8 RDW 15.7 H Plt Count 575 H Seg Neutrophils % 75.5 Lymphocytes % 13.5 Monocytes % 7.2 Eosinophils % 3.0 Basophils % 0.8 Absolute Neutrophils 10.7 H Absolute Lymphocytes 1.9 Absolute Monocytes 1.0 Absolute Eosinophils 0.4 Absolute Basophils 0.1 Sodium 142.9 Potassium 3.2 L Chloride 103 Carbon Dioxide 31 H Anion Gap 9 BUN 15 Creatinine 0.47 L Est GFR ( Amer) > 60 Est GFR (Non-Af Amer) > 60 Glucose 85 Calcium 8.7 Magnesium 1.8 Total Bilirubin 1.0 AST 39 H ALT 73 H Alkaline Phosphatase 304 H Total Protein 5.4 L Albumin 2.9 L 03/16/18 03/18/18 03/18/18 05:06 04:45 19:10 CK-MB (CK-2) 1.10 Troponin I < 0.012 < 0.012 NT-Pro-B Natriuret Pep 513 03/18/18 03/20/18 19:50 12:05 CK-MB (CK-2) Troponin I NT-Pro-B Natriuret Pep 272 659 Impressions: KUB X-Ray 03/11/18 00:00 IMPRESSION: There are mildly dilated small bowel loops throughout the left abdomen, developing ileus or obstruction possible. Hepatobiliary Scan Nuclear Medicine 03/12/18 00:00 IMPRESSION: Bile leak in the gallbladder fossa. Catheter Placement 03/14/18 00:00 IMPRESSION: IMAGE(S) OBTAINED DURING PROCEDURE. Fluoroscopy 03/14/18 00:00 IMPRESSION: IMAGE(S) OBTAINED DURING PROCEDURE. Chest/Abdomen CTA 03/18/18 00:00 IMPRESSION: 1 . Status post cholecystectomy with pneumobilia. Upper abdominal ascites and pneumoperitoneum consistent with postsurgical change. 2. Bibasilar atelectasis with pleural effusions. Acute Abdomen Series 03/20/18 00:00 IMPRESSION: Postop ileus. Retroperitoneal Abscess Drainage 03/20/18 00:00 IMPRESSION: Successful CT-guided placement of drainage catheter. Thoracentesis Ultrasound 03/23/18 12:00 IMPRESSION: Small volume right-sided thoracentesis utilizing ultrasound guidance as detailed above. Abdomen/Pelvis CT 03/27/18 00:00 IMPRESSION: SURGICAL CHANGES IN THE GALLBLADDER FOSSA WITH PERCUTANEOUS DRAINAGE CATHETERS. NO SIGNIFICANT RESIDUAL FLUID COLLECTION. SMALL AMOUNT OF ASCITES. NO FOCAL FLUID COLLECTION CONCERNING FOR DEVELOPING ABSCESS. OTHER INCIDENTAL FINDINGS ABOVE. Head CT 03/27/18 10:08 IMPRESSION: NORMAL BRAIN CT WITHOUT CONTRAST. EVIDENCE OF ACUTE STROKE: NO. Chest CT 03/27/18 15:00 IMPRESSION: MODERATE BILATERAL PLEURAL EFFUSIONS WITH BASILAR ATELECTASIS/ CONSOLIDATION. OVERALL NO SIGNIFICANT CHANGE. Interventional Vascular Procedure 03/28/18 00:00 IMPRESSION: SUCCESSFUL PLACEMENT OF A 5 FR DUAL LUMEN 35 CM PICC IN THE LEFT BASILIC VEIN. PICC Line Insertion 03/28/18 00:00 IMPRESSION: SUCCESSFUL PLACEMENT OF A 5 FR DUAL LUMEN 35 CM PICC IN THE LEFT BASILIC VEIN. Chest X-Ray 03/30/18 00:00 IMPRESSION: New Small to moderate bilateral pleural effusions, pulmonary vascular congestion with alveolar and interstitial edema. Left retrocardiac consolidation atelectasis versus pneumonia. Assessment & Plan - Diagnosis (1) Acute respiratory failure with hypoxia Is this a current diagnosis for this admission?: Yes (3) Bile leak, postoperative Is this a current diagnosis for this admission?: Yes (4) Full code status Is this a current diagnosis for this admission?: Yes - Plan Summary Plan Summary: some sob this am off o2 dayday reg diet urine op good wants her inhalers back discussed with medicine will repeat cxr today
[2018-03-31] MEDS ORDERED: IPRATROPIUM BROMIDE 0.02% NEB 0.5 MG/2.5 ML AMPUL NEB PRN (09:50)
[2018-03-31] MEDS ORDERED: MAGNESIUM SULFATE/D5W 1 GM/100 ML RTUPB IV ONE (10:00)
[2018-03-31] MEDS: FLUCONAZOLE 200 MG/NS RTU 200 MG/100 ML RTUPB IV SCH (10:08)
[2018-03-31] MEDS: FUROSEMIDE INJ/PF 40 MG/4 ML SDV IV SCH ×2 (10:16→21:28)
[2018-03-31] MEDS: FAMOTIDINE INJ/PF 20 MG/2 ML SDV IV SCH ×2 (10:17→21:28)
[2018-03-31] MEDS: SENNOSIDES/DOCUSATE 8.6-50 MG 1 EACH TABLET PO SCH ×2 (10:18→17:42)
[2018-03-31] MEDS: NORMAL SALINE 10 ML SDV (SCHEDULED) IV SCH ×2 (10:19→21:27)
[2018-03-31] MEDS: LIDOCAINE 5% (700 MG) TRANSDERMAL ADH..PATCH TP SCH (10:19)
--- NOTE | 2018-03-31 10:33 | RADIOLOGY REPORT (SQ) ---
EXAM DESCRIPTION: CHEST SINGLE VIEW COMPLETED DATE/TIME: 03/31/2018 10:24 am REASON FOR STUDY: sob COMPARISON: Previous day. NUMBER OF VIEWS: One view. TECHNIQUE: Single frontal radiographic image of the chest acquired. LIMITATIONS: None. FINDINGS: LUNGS AND PLEURA: Bilateral pleural effusions, dense consolidation left base not significa ntly changed. MEDIASTINUM AND HEART: Stable heart size and mediastinal structures. SUPPORT DEVICES: Appropriate location without change. BONY STRUCTURES: No acute findings. HARDWARE: None. OTHER: No other significant finding. IMPRESSION: Left basilar consolidation. Small right pleural effusion. No significant change. Reading location - IP/workstation name: [email or web address]
[2018-03-31] MEDS ORDERED: POTASSI CL 20 MEQ/50 ML RIDER 20 MEQ/50 ML RTUPB IV ONE (11:00)
[2018-03-31] MEDS: ALBUMIN HUMAN 12.5 GM/50 ML RTUINJ IV SCH ×2 (11:32→21:29)
[2018-03-31] MEDS: BUDESONIDE/FORMOTEROL 80-4.5 MCG 60 PUFF/6.9 GM MDI IH SCH ×2 (13:56→21:28)
[2018-03-31] MEDS ORDERED: LEVALBUTEROL HCL NEB 0.63 MG/3 ML AMPUL NEB ONE (14:14)
[2018-03-31] MEDS: NORMAL SALINE INJ/PF 0.9% 10 ML SDV IV PRN (14:49)
[2018-03-31] MEDS: MAG HYDROX/AL HYDROX/SIMETH SUSP 30 ML UDCUP NG PRN (15:01)
--- NOTE | 2018-03-31 15:28 | PDOC PROGRESS REPORT ---
Subjective Progress Note for:: 03/31/18 Subjective:: 63 y.o. F with HTN, asthma and COPD admitted to [facility] 03/01/2018 for c holecystectomy to remove cancerous gallbladder. Within days of surgery there was a large amount of output noted in her JASKARAN drain. The patient underwent an ERCP on 03/14/2018 with CBD stent placement. Within 24hrs she began developing signs of sepsis and the hospitalist service was consulted for medical management. The patient was seen on morning rounds while her son was present. She was extubated 03/24/18 weaned to BIPAP (QHS) and nasal cannula during the day. She is fully awake today, A&Ox4, follows all commands. Today, the patient endorses anxiety and mild difficulty breathing. Started on BID lasix yesterday, only diuresed 1.3L all day (typically when given lasix and albumin = better resp onse). Patient still w/ third spacing (gradual improvement). Lungs CTA, diminished in b/l bases. Plan to initiate BID albumin to be administered with lasix. Reason For Visit: GALLBLADDER CANCER Physical Exam Vital Signs: Temp Pulse Resp BP Pulse Ox 99.0 F 94 24 H 129/64 H 95 03/31/18 11:38 03/31/18 14:00 03/31/18 11:38 03/31/18 11:38 03/31/18 11:38 Intake & Output 03/30/18 03/31/18 04/01/18 06:59 06:59 06:59 Intake Total 2530 794 350 Output Total 2050 4376 900 Balance 555 -5414 -788 Weight 89.3 kg 88.9 kg General appearance: PRESENT: obese Eye exam: PRESENT: conjunctiva pink, PERRLA Mouth exam: PRESENT: dry mucosa, tongue midline, other - tachy mucosa Neck exam: PRESENT: full ROM Respiratory exam: PRESENT: clear to auscultation christian, decreased breath sounds - bilateral lower lobes, tachypnea Cardiovascular exam: PRESENT: RRR Pulses: PRESENT: normal radial pulses, normal dorsalis pedis pul Vascular exam: PRESENT: pallor GI/Abdominal exam: PRESENT: normal bowel sounds, soft, tenderness - surgical site. ABSENT: distended, firm Rectal exam: PRESENT: deferred Extremities exam: PRESENT: full ROM, pedal edema Musculoskeletal exam: PRESENT: ambulatory - WITH ASSISTANCE, full ROM. ABSENT: normal inspection - B/L PITTING EDEMA Neurological exam: PRESENT: alert, awake, oriented to person, oriented to place, oriented to time, oriented to situation Psychiatric exam: PRESENT: anxious Skin exam: PRESENT: dry, intact, pallor Results Laboratory Results: 03/31/18 05:38 03/31/18 05:38 03/31/18 03/31/18 03/31/18 05:38 05:38 11:50 WBC 14.2 H RBC 3.03 L Hgb 8.6 L Hct 25.3 L MCV 83 MCH 28.2 MCHC 33.8 RDW 15.7 H Plt Count 575 H Seg Neutrophils % 75.5 Lymphocytes % 13.5 Monocytes % 7.2 Eosinophils % 3.0 Basophils % 0.8 Absolute Neutrophils 10.7 H Absolute Lymphocytes 1.9 Absolute Monocytes 1.0 Absolute Eosinophils 0.4 Absolute Basophils 0.1 Sodium 142.9 Potassium 3.2 L Chloride 103 Carbon Dioxide 31 H Anion Gap 9 BUN 15 Creatinine 0.47 L Est GFR ( Amer) > 60 Est GFR (Non-Af Amer) > 60 Glucose 85 Calcium 8.7 Magnesium 1.8 Total Bilirubin 1.0 AST 39 H ALT 73 H Alkaline Phosphatase 304 H Total Protein 5.4 L Albumin 2.9 L Stool Occult Blood NEGATIVE 03/16/18 03/18/18 03/18/18 05:06 04:45 19:10 CK-MB (CK-2) 1.10 Troponin I < 0.012 < 0.012 NT-Pro-B Natriuret Pep 513 03/18/18 03/20/18 19:50 12:05 CK-MB (CK-2) Troponin I NT-Pro-B Natriuret Pep 272 659 Impressions: KUB X-Ray 03/11/18 00:00 IMPRESSION: There are mildly dilated small bowel loops throughout the left abdomen, developing ileus or obstruction possible. Hepatobiliary Scan Nuclear Medicine 03/12/18 00:00 IMPRESSION: Bile leak in the gallbladder fossa. Catheter Placement 03/14/18 00:00 IMPRESSION: IMAGE(S) OBTAINED DURING PROCEDURE. Fluoroscopy 03/14/18 00:00 IMPRESSION: IMAGE(S) OBTAINED DURING PROCEDURE. Chest/Abdomen CTA 03/18/18 00:00 IMPRESSION: 1 . Status post cholecystectomy with pneumobilia. Upper abdominal ascites and pneumoperitoneum consistent with postsurgical change. 2. Bibasilar atelectasis with pleural effusions. Acute Abdomen Series 03/20/18 00:00 IMPRESSION: Postop ileus. Retroperitoneal Abscess Drainage 03/20/18 00:00 IMPRESSION: Successful CT-guided placement of drainage catheter. Thoracentesis Ultrasound 03/23/18 12:00 IMPRESSION: Small volume right-sided thoracentesis utilizing ultrasound guidance as detailed above. Abdomen/Pelvis CT 03/27/18 00:00 IMPRESSION: SURGICAL CHANGES IN THE GALLBLADDER FOSSA WITH PERCUTANEOUS DRAINAGE CATHETERS. NO SIGNIFICANT RESIDUAL FLUID COLLECTION. SMALL AMOUNT OF ASCITES. NO FOCAL FLUID COLLECTION CONCERNING FOR DEVELOPING ABSCESS. OTHER IN CIDENTAL FINDINGS ABOVE. Head CT 03/27/18 10:08 IMPRESSION: NORMAL BRAIN CT WITHOUT CONTRAST. EVIDENCE OF ACUTE STROKE: NO. Chest CT 03/27/18 15:00 IMPRESSION: MODERATE BILATERAL PLEURAL EFFUSIONS WITH BASILAR ATELECTASIS/ CONSOLIDATION. OVERALL NO SIGNIFICANT CHANGE. Interventional Vascular Procedure 03/28/18 00:00 IMPRESSION: SUCCESSFUL PLACEMENT OF A 5 FR DUAL LUMEN 35 CM PICC IN THE LEFT BASILIC VEIN. PICC Line Insertion 03/28/18 00:00 IMPRESSION: SUCCESSFUL PLACEMENT OF A 5 FR DUAL LUMEN 35 CM PICC IN THE LEFT BASILIC VEIN. Chest X-Ray 03/31/18 00:00 IMPRESSION: Left basilar consolidation. Small right pleural effusion. No sign ificant change. Status: Imported from PACS Assessment & Plan - Diagnosis (1) Sepsis Is this a current diagnosis for this admission?: No Plan: Improving. WBCs improving today (18-->15-->14). Sepsis secondary to intra-abdominal infection. Evidence by tachycardia, leukocyosis, fever (PXZR451.2), tachypnea (RR 24-40) No evidence of PNA. Blood cultures (03/16/18, 03/20/18, 03/27/18) negative. Now s/p percutaneous drain placement. Peritoneal fluid C/S growing klebsiella pneumoniae, enterococcus faecalis, yeast. AFB and Fungal smears pending. Sputum culture shows yeast. Thoracic fluid AFB smear pending. Culture has no growth (final). Repeat CT Chest shows moderate b/l pleural effusions, essentially unchanged. Influenza A/B negative Continue Meropenem, IV Diflucan. Vancomycin discontinued 03/25/18 Previously received Cipro pre-operatively before Ex Lap, postoperatively received Ancef and Flagyl 03/06-03/13 (2) Respiratory failure Qualifiers: Chronicity: acute Is this a current diagnosis for this admission?: Yes Plan: Improved; tolerating BiPAP QHS; Nasal cannula during the day Secondary to poor respiratory effort/splinting stemming from postoperative pain resulting in atelectasis and bilateral pleural effusions; complicated by sepsis. Bilateral pleural effusions on CTA; R>L. Continue to be present on CXR and CT. ProBNP 659, echocardiogram is reassuring. LVEF 65%, normal diastolic function Thoracentesis; only 20 mL out Repeat Chest CT 03/27 shows moderate b/l pleural effusions, basically unchanged from previous imaging studies Influenza negative Continue supplemental oxygen, non-invasive positive pressure mechanical ventilation as needed to maintain oxygen saturations. Scheduled and as needed nebulizer treatments. Spiriva and Symbicort Continue to diuresis as BP and kidney function allows - lasix and albumin BID Pulmonology is consulted; appreciate Dr. Booth's assistance. 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 Tadeo's assistance. Surgery is primary; appreciate Dr. Michaud's expertise with surgical/ oncological cases. Swallow evaluation yesterday, patient able to tolerate solid foods, plan for diet initiation Carb meal pattern with thin liquids, no straws No longer requiring TPN (4) Anxiety Is this a current diagnosis for this admission?: Yes Plan: Patient has a PMH of anxiety Family reports the patient has been significantly anxious while inpatient Ativan 1 mg PO every 4 hours as needed. BuSpar three times daily. (5) Hypotension Is this a current diagnosis for this admission?: Yes Plan: Resolved; blood pressures are now stable Secondary to sepsis. Off robert-Synephrine. Previously provided albumin and Hespan. BID IV lasix and albumin for fluid mobilization. (6) Postoperative pain Is this a current diagnosis for this admission?: Yes Plan: Status post cholecystectomy and ERCP Postoperative pain may have contributed to her acute respiratory failure with hypoxia secondary to splinting. Continue providing analgesics as needed. Oxycodone, IV tylenol or toradaol is available. Lidoderm patches, repositioning. (7) Full code status Is this a current diagnosis for this admission?: Yes (8) Anemia Qualifiers: Other causes of anemia: chronic disease, other Is this a current diagnosis for this admission?: Yes Plan: Hgb 8.6 today Occult stool negative No evidence of ongoing bleeding. Will monitor closely and continue to provide additional PRBC for Hgb <8 Registered dietitian is consulted (9) COPD (chronic obstructive pulmonary disease) Qualifiers: COPD type: unspecified COPD Qualified Code(s): J44.9 - Chronic obstructive pulmonary disease, unspecified Is this a current diagnosis for this admission?: Yes Plan: Without exacerbation at this time. Restarted symbicort today Discontinue serevent Management as above. (10) Tobacco abuse Is this a current diagnosis for this admission?: Yes Plan: Nicotine replacement therapy is offered. (11) Debility Is this a current diagnosis for this admission?: Yes Plan: PT/OT Patient able to sit on edge of bed, stand and pivot Discharge planning is consulted. Family goal is to discharge to home with home health services. - Time Time Spent with patient: 15-24 minutes Medications reviewed and adjusted accordingly: Yes Anticipated discharge: Home with Homehealth - Inpatient Certification Based on my medical assessment, after consideration of the patient's comorbidities, presenting symptoms, or acuity I expect that the services needed warrant INPATIENT care.: Yes I certify that my determination is in accordance with my understanding of Medicare's requirements for reasonable and necessary INPATIENT services [42 CFR 412.3e].: Yes Medical Necessity: Significant Comorbidiites Make Outpatient Treatment Too Risky, Need for IV Antibiotics, Risk of Complication if Not Cared For in Hospital - Plan Summary Plan Summary: ADD ALBUMIN TO BID LASIX. RESUME HOME SYMBICORT. D/C SEREVENT.
[2018-03-31] MEDS: PHARMACY COMMUNICATION ORDER MC SCH (21:56)
[2018-04-01] MEDS: MAG HYDROX/AL HYDROX/SIMETH SUSP 30 ML UDCUP NG PRN (00:14)
[2018-04-01] MEDS: LEVALBUTEROL HCL NEB 0.63 MG/3 ML AMPUL NEB SCH ×4 (02:18→19:54)
[2018-04-01] MEDS: HEPARIN SOD (PORCINE) 5,000 UNIT/ML 1 ML SYRINGE SUBCUT SCH ×3 (05:36→21:07)
[2018-04-01] MEDS: BUSPIRONE HCL 10 MG TABLET PO SCH ×3 (05:36→21:07)
[2018-04-01] MEDS: TIOTROPIUM BROMIDE DPI 5 CAP/KIT (18 MCG/CAP) IH SCH (05:36)
[2018-04-01] MEDS: MEROPENEM 1 GM in NORMAL SALINE 50 ML IV SCH ×3 (05:37→21:08)
[2018-04-01 06:56] LABS: ABSOLUTE BASOPHILS # (AUTO) 0.2 10^3/uL (0.0-0.2); ABSOLUTE EOSINOPHILS # (AUTO) 0.5 10^3/uL (0.0-0.6); ABSOLUTE LYMPHOCYTES (AUTO) 1.9 10^3/uL (0.5-4.7); ABSOLUTE MONOCYTES (AUTO) 0.9 10^3/uL (0.1-1.4); BASOPHILS % (AUTO) 1.1 % (0-2); HEMATOCRIT 25.8 % (36.0-47.0); HEMOGLOBIN 8.7 g/dL (12.0-15.5); LYMPHOCYTES % (AUTO) 14.4 % (13-45); MEAN CORPUSCULAR HEMOGLOBIN 28.3 pg (27.0-33.4); MEAN CORPUSCULAR HGB CONC 33.8 g/dL (32.0-36.0); MEAN CORPUSCULAR VOLUME 84 fl (80-97); MONOCYTES % (AUTO) 6.7 % (3-13); PLATELET COUNT 570 10^3/uL (150-450); RED BLOOD COUNT 3.07 10^6/uL (3.72-5.28); RED CELL DISTRIBUTION WIDTH 15.5 % (11.5-14.0); SEGMENTED NEUTROPHILS % (AUTO) 73.8 % (42-78); TOTAL CELLS COUNTED % (AUTO) 100 %; WHITE BLOOD COUNT 13.5 10^3/uL (4.0-10.5)
[2018-04-01] MEDS: INSULIN REG, HUMAN 100 UNIT/ML 3 ML VIAL (PYX) SUBCUT SCH ×4 (07:35→21:12)
[2018-04-01 09:32] LABS: ANION GAP 8 (5-19); BLOOD UREA NITROGEN 15 mg/dL (7-20); CALCIUM 8.8 mg/dL (8.4-10.2); CARBON DIOXIDE 33 mmol/L (22-30); CHLORIDE 101 mmol/L (98-107); GLUCOSE 89 mg/dL (75-110); POTASSIUM 3.2 mmol/L (3.6-5.0)
[2018-04-01] MEDS: ALBUMIN HUMAN 12.5 GM/50 ML RTUINJ IV SCH ×2 (09:54→21:08)
[2018-04-01] MEDS: FLUCONAZOLE 200 MG/NS RTU 200 MG/100 ML RTUPB IV SCH (09:54)
[2018-04-01] MEDS: FUROSEMIDE INJ/PF 40 MG/4 ML SDV IV SCH ×2 (09:54→22:16)
[2018-04-01] MEDS: FAMOTIDINE INJ/PF 20 MG/2 ML SDV IV SCH ×2 (09:54→21:09)
[2018-04-01] MEDS: LIDOCAINE 5% (700 MG) TRANSDERMAL ADH..PATCH TP SCH ×2 (09:54→10:04)
[2018-04-01] MEDS: SENNOSIDES/DOCUSATE 8.6-50 MG 1 EACH TABLET PO SCH ×2 (09:55→17:37)
[2018-04-01] MEDS: NORMAL SALINE 10 ML SDV (SCHEDULED) IV SCH ×2 (09:55→21:08)
--- NOTE | 2018-04-01 10:00 | PDOC PROGRESS REPORT ---
Subjective Progress Note for:: 04/01/18 Reason For Visit: GALLBLADDER CANCER Physical Exam Vital Signs: Temp Pulse Resp BP Pulse Ox 97.9 F 99 20 120/61 95 04/01/18 07:58 04/01/18 07:58 04/01/18 07:58 04/01/18 07:58 04/01/18 07:58 Intake & Output 03/31/18 04/01/18 04/02/18 06:59 06:59 06:59 Intake Total 794 500 Output Total 1162 6166 Balance -0203 -9355 Weight 88.9 kg 87.2 kg General appearance: PRESENT: no acute distress Head exam: PRESENT: normocephalic Eye exam: PRESENT: EOMI Mouth exam: PRESENT: moist Respiratory exam: PRESENT: other - distant bs bilat, no rales Cardiovascular exam: PRESENT: bradycardia, RRR Pulses: PRESENT: normal radial pulses, normal femoral pulses GI/Abdominal exam: PRESENT: soft Rectal exam: PRESENT: deferred Extremities exam: PRESENT: full ROM, +1 edema Musculoskeletal exam: PRESENT: ambulatory Neurological exam: PRESENT: alert, awake, oriented to time, oriented to s ituation Results Laboratory Results: 04/01/18 06:45 04/01/18 06:45 03/31/18 04/01/18 04/01/18 11:50 06:45 06:45 WBC 13.5 H RBC 3.07 L Hgb 8.7 L Hct 25.8 L MCV 84 MCH 28.3 MCHC 33.8 RDW 15.5 H Plt Count 570 H Seg Neutrophils % 73.8 Lymphocytes % 14.4 Monocytes % 6.7 Eosinophils % 4.0 Basophils % 1.1 Absolute Neutrophils 10.0 H Absolute Lymphocytes 1.9 Absolute Monocytes 0.9 Absolute Eosinophils 0.5 Absolute Basophils 0.2 Sodium 142.0 Potassium 3.2 L Chloride 101 Carbon Dioxide 33 H Anion Gap 8 BUN 15 Creatinine 0.59 Est GFR ( Amer) > 60 Est GFR (Non-Af Amer) > 60 Glucose 89 Calcium 8.8 Magnesium 2.1 Stool Occult Blood NEGATIVE 03/16/18 03/18/18 03/18/18 05:06 04:45 19:10 CK-MB (CK-2) 1.10 Troponin I < 0.012 < 0.012 NT-Pro-B Natriuret Pep 513 03/18/18 03/20/18 19:50 12:05 CK-MB (CK-2) Troponin I NT-Pro-B Natriuret Pep 009 049 Impressions: KUB X-Ray 03/11/18 00:00 IMPRESSION: There are mildly dilated small bowel loops throughout the left abdomen, developing ileus or obstruction possible. Hepatobiliary Scan Nuclear Medicine 03/12/18 00:00 IMPRESSION: Bile leak in the gallbladder fossa. Catheter Placement 03/14/18 00:00 IMPRESSION: IMAGE(S) OBTAINED DURING PROCEDURE. Fluoroscopy 03/14/18 00:00 IMPRESSION: IMAGE(S) OBTAINED DURING PROCEDURE. Chest/Abdomen CTA 03/18/18 00:00 IMPRESSION: 1 . Status post cholecystectomy with pneumobilia. Upper abdominal ascites and pneumoperitoneum consistent with postsurgical change. 2. Bibasilar atelectasis with pleural effusions. Acute Abdomen Series 03/20/18 00:00 IMPRESSION: Postop ileus. Retroperitoneal Abscess Drainage 03/20/18 00:00 IMPRESSION: Successful CT-guided placement of drainage catheter. Thoracentesis Ultrasound 03/23/18 12:00 IMPRESSION: Small volume right-sided thoracentesis utilizing ultrasound guidance as detailed above. Abdomen/Pelvis CT 03/27/18 00:00 IMPRESSION: SURGICAL CHANGES IN THE GALLBLADDER FOSSA WITH PERCUTANEOUS DRAINAGE CATHETERS. NO SIGNIFICANT RESIDUAL FLUID COLLECTION. SMALL AMOUNT OF ASCITES. NO FOCAL FLUID COLLECTION CONCERNING FOR DEVELOPING ABSCESS. OTHER INCIDENTAL FINDINGS ABOVE. Head CT 03/27/18 10:08 IMPRESSION: NORMAL BRAIN CT WITHOUT CONTRAST. EVIDENCE OF ACUTE STROKE: NO. Chest CT 03/27/18 15:00 IMPRESSION: MODERATE BILATERAL PLEURAL EFFUSIONS WITH BASILAR ATELECTASIS/ CONSOLIDATION. OVERALL NO SIGNIFICANT CHANGE. Interventional Vascular Procedure 03/28/18 00:00 IMPRESSION: SUCCESSFUL PLACEMENT OF A 5 FR DUAL LUMEN 35 CM PICC IN THE LEFT BASILIC VEIN. PICC Line Insertion 03/28/18 00:00 IMPRESSION: SUCCESSFUL PLACEMENT OF A 5 FR DUAL LUMEN 35 CM PICC IN THE LEFT BASILIC VEIN. Chest X-Ray 03/31/18 00:00 IMPRESSION: Left basilar consolidation. Small right pleural effusion. No significant change. Assessment & Plan - Diagnosis (1) Acute respiratory failure with hypoxia Is this a current diagnosis for this admission?: Yes (3) Bile leak, postoperative Is this a current diagnosis for this admission?: Yes (4) Full code status Is this a current diagnosis for this admission?: Yes - Plan Summary Plan Summary: afeb vss looks markeldy better this am sitting up in chair no resp distress dayday reg diet having bm's drain iwth min op plan- per medicine regarding resp status ok from surgery standpt for discharge when deemed stable per medicine will prob need home health.
[2018-04-01] MEDS: SIMETHICONE 80 MG TAB.CHEW PO PRN ×2 (10:03→23:01)
[2018-04-01] MEDS: NORMAL SALINE INJ/PF 0.9% 10 ML SDV IV PRN ×2 (11:28→14:18)
--- NOTE | 2018-04-01 13:07 | PDOC PROGRESS REPORT ---
Subjective Progress Note for:: 04/01/18 Subjective:: 63 y.o. F with HTN, asthma and COPD admitted to [facility] 03/01/2018 for c holecystectomy to remove cancerous gallbladder. Within days of surgery there was a large amount of output noted in her JASKARAN drain. The patient underwent an ERCP on 03/14/2018 with CBD stent placement. Within 24hrs she began developing signs of sepsis and the hospitalist service was consulted for medical management. The patient was seen on morning rounds while her son was present. She was sitting upright in bedside recliner. The patient was extubated 03/24/18 weaned to BIPAP (QHS) and nasal cannula during the day. She is fully awake today, A&Ox4, follows all commands. Today, the patient endorses chest tightness associated with Symbicort inhaler. States she wants to be placed back on Serevent. Additionally, the patient complains of gas pain, states she is able to pass gas but reports mild abdominal pain associated with flatus. Plan to initiate simethicone. Patient still w/ third spacing (gradual improvement). Lungs CTA, diminished in b/l bases. Continue BID albumin to be administered with lasix. Ms. Pineda looks markedly better today. Hopefully can discharge home this week. Reason For Visit: GALLBLADDER CANCER Physical Exam Vital Signs: Temp Pulse Resp BP Pulse Ox 99.1 F 100 20 146/67 H 93 04/01/18 11:41 04/01/18 11:41 04/01/18 11:41 04/01/18 11:41 04/01/18 11:41 Intake & Output 03/31/18 04/01/18 04/02/18 06:59 06:59 06:59 Intake Total 794 500 150 Output Total 5598 3912 1200 Balance -2335 -6115 -1050 Weight 88.9 kg 87.2 kg General appearance: PRESENT: obese Eye exam: PRESENT: conjunctiva pink, PERRLA Mouth exam: PRESENT: moist, tongue midline Neck exam: PRESENT: full ROM Respiratory exam: PRESENT: clear to auscultation christian, decreased breath sounds - LEFT LOWER LOBE, symmetrical, unlabored. ABSENT: crackles, rhonchi, wheezes Cardiovascular exam: PRESENT: RRR Pulses: PRESENT: normal radial pulses, +1 pedal pulses bilateral Vascular exam: PRESENT: pallor GI/Abdominal exam: PRESENT: normal bowel sounds, soft, tenderness - VERY MILD SURROUNDING SURGICAL SITE. ABSENT: distended, firm, guarding Rectal exam: PRESENT: deferred Extremities exam: PRESENT: full ROM, pedal edema - +1, +1 edema Musculoskeletal exam: PRESENT: ambulatory - WITH ASSISTANCE, full ROM Neurological exam: PRESENT: alert, awake, oriented to person, oriented to place, oriented to time, oriented to situation Psychiatric exam: PRESENT: appropriate affect Skin exam: PRESENT: dry, intact, pallor Results Laboratory Results: 04/01/18 06:45 04/01/18 06:45 04/01/18 04/01/18 06:45 06:45 WBC 13.5 H RBC 3.07 L Hgb 8.7 L Hct 25.8 L MCV 84 MCH 28.3 MCHC 33.8 RDW 15.5 H Plt Count 570 H Seg Neutrophils % 73.8 Lymphocytes % 14.4 Monocytes % 6.7 Eosinophils % 4.0 Basophils % 1.1 Absolute Neutrophils 10.0 H Absolute Lymphocytes 1.9 Absolute Monocytes 0.9 Absolute Eosinophils 0.5 Absolute Basophils 0.2 Sodium 142.0 Potassium 3.2 L Chloride 101 Carbon Dioxide 33 H Anion Gap 8 BUN 15 Creatinine 0.59 Est GFR ( Amer) > 60 Est GFR (Non-Af Amer) > 60 Glucose 89 Calcium 8.8 Magnesium 2.1 03/27/18 09:56 Blood Blood Culture - Final NO GROWTH IN 5 DAYS 03/27/18 10:01 Blood Blood Culture - Final NO GROWTH IN 5 DAYS 03/16/18 03/18/18 03/18/18 05:06 04:45 19:10 CK-MB (CK-2) 1.10 Troponin I < 0.012 < 0.012 NT-Pro-B Natriuret Pep 513 03/18/18 03/20/18 19:50 12:05 CK-MB (CK-2) Troponin I NT-Pro-B Natriuret Pep 272 319 Impressions: KUB X-Ray 03/11/18 00:00 IMPRESSION: There are mildly dilated small bowel loops throughout the left abdomen, developing ileus or obstruction possible. Hepatobiliary Scan Nuclear Medicine 03/12/18 00:00 IMPRESSION: Bile leak in the gallbladder fossa. Catheter Placement 03/14/18 00:00 IMPRESSION: IMAGE(S) OBTAINED DURING PROCEDURE. Fluoroscopy 03/14/18 00:00 IMPRESSION: IMAGE(S) OBTAINED DURING PROCEDURE. Chest/Abdomen CTA 03/18/18 00:00 IMPRESSION: 1 . Status post cholecystectomy with pneumobilia. Upper abdominal ascites and pneumoperitoneum consistent with postsurgical change. 2. Bibasilar atelectasis with pleural effusions. Acute Abdomen Series 03/20/18 00:00 IMPRESSION: Postop ileus. Retroperitoneal Abscess Drainage 03/20/18 00:00 IMPRESSION: Successful CT-guided placement of drainage catheter. Thoracentesis Ultrasound 03/23/18 12:00 IMPRESSION: Small volume right-sided thoracentesis utilizing ultrasound guidance as detailed above. Abdomen/Pelvis CT 03/27/18 00:00 IMPRESSION: SURGICAL CHANGES IN THE GALLBLADDER FOSSA WITH PERCUTANEOUS DRAINAGE CATHETERS. NO SIGNIFICANT RESIDUAL FLUID COLLECTION. SMALL AMOUNT OF ASCITES. NO FOCAL FLUID COLLECTION CONCERNING FOR DEVELOPING ABSCESS. OTHER INCIDENTAL FINDINGS ABOVE. Head CT 03/27/18 10:08 IMPRESSION: NORMAL BRAIN CT WITHOUT CONTRAST. EVIDENCE OF ACUTE STROKE: NO. Chest CT 03/27/18 15:00 IMPRESSION: MODERATE BILATERAL PLEURAL EFFUSIONS WITH BASILAR ATELECTASIS/ CONSOLIDATION. OVERALL NO SIGNIFICANT CHANGE. Interventional Vascular Procedure 03/28/18 00:00 IMPRESSION: SUCCESSFUL PLACEMENT OF A 5 FR DUAL LUMEN 35 CM PICC IN THE LEFT BASILIC VEIN. PICC Line Insertion 03/28/18 00:00 IMPRESSION: SUCCESSFUL PLACEMENT OF A 5 FR DUAL LUMEN 35 CM PICC IN THE LEFT BA SILIC VEIN. Chest X-Ray 03/31/18 00:00 IMPRESSION: Left basilar consolidation. Small right pleural effusion. No significant change. Status: Imported from PACS Assessment & Plan - Diagnosis (1) Sepsis Is this a current diagnosis for this admission?: No Plan: Improving. WBCs improving today (18-->15-->14-->13). Sepsis secondary to intra-abdominal infection. Evidence by tachycardia, leukocyosis, fever (ZAWM559.2), tachypnea (RR 24-40) No evidence of PNA. Blood cultures (03/16/18, 03/20/18, 03/27/18) negative. Now s/p percutaneous drain placement. Peritoneal fluid C/S growing klebsiella pneumoniae, enterococcus faecalis, yeast. AFB and Fungal smears pending. Sputum culture shows yeast. Thoracic fluid AFB smear pending. Culture has no growth (final). Repeat CT Chest shows moderate b/l pleural effusions, essentially unchanged. Influenza A/B negative Continue Meropenem, IV Diflucan. Vancomycin discontinued 03/25/18 Previously received Cipro pre-operatively before Ex Lap, postoperatively received Ancef and Flagyl 03/06-03/13 (2) Respiratory failure Qualifiers: Chronicity: acute Is this a current diagnosis for this admission?: Yes Plan: Improved; tolerating BiPAP QHS; Nasal cannula during the day Secondary to poor respiratory effort/splinting stemming from postoperative pain resulting in atelectasis and bilateral pleural effusions; complicated by sepsis. Bilateral pleural effusions on CTA; R>L. Continue to be present on CXR and CT. ProBNP 659, echocardiogram is reassuring. LVEF 65%, normal diastolic function Thoracentesis; only 20 mL out Repeat Chest CT 03/27 shows moderate b/l pleural effusions, basically unchanged from previous imaging studies Influenza negative Continue supplemental oxygen, non-invasive positive pressure mechanical ventilation as needed to maintain oxygen saturations. Scheduled and as needed nebulizer treatments. Spiriva and Serevent Continue to diuresis as BP and kidney function allows - lasix and albumin BID Pulmonology is consulted; appreciate Dr. Booth's assistance. 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 Tadeo's assistance. Surgery is primary; appreciate Dr. Michaud's expertise with surgical/oncological cases. Swallow evaluation yesterday, patient able to tolerate solid foods, plan for diet initiation Carb meal pattern with thin liquids, no straws No longer requiring TPN (4) Anxiety Is this a current diagnosis for this admission?: Yes Plan: Patient has a PMH of anxiety Family reports the patient has been significantly anxious while inpatient Ativan 1 mg PO every 4 hours as needed. BuSpar three times daily. (5) Hypotension Is this a current diagnosis for this admission?: Yes Plan: Resolved; blood pressures are now stable Secondary to sepsis. Off robert-Synephrine. Previously provided albumin and Hespan. BID IV lasix and albumin for fluid mobilization. (6) Postoperative pain Is this a current diagnosis for this admission?: Yes Plan: Status post cholecystectomy and ERCP Postoperative pain may have contributed to her acute respiratory failure with hypoxia secondary to splinting. Continue providing analgesics as needed. Oxycodone, IV tylenol or toradaol is available. Lidoderm patches, repositioning. (7) Full code status Is this a current diagnosis for this admission?: Yes (8) Anemia Qualifiers: Other causes of anemia: chronic disease, other Is this a current diagnosis for this admission?: Yes Plan: Hgb 8.7 today Occult stool negative No evidence of ongoing bleeding. Will monitor closely and continue to provide additional PRBC for Hgb <8 Registered dietitian is consulted (9) COPD (chronic obstructive pulmonary disease) Qualifiers: COPD type: unspecified COPD Qualified Code(s): J44.9 - Chronic obstructive pulmonary disease, unspecified Is this a current diagnosis for this admission?: Yes Plan: Without exacerbation at this time. Switched back to serevent Management as above. (10) Tobacco abuse Is this a current diagnosis for this admission?: Yes Plan: Nicotine replacement therapy is offered. (11) Debility Is this a current diagnosis for this admission?: Yes Plan: PT/OT Patient able to sit on edge of bed, stand and pivot Discharge planning is consulted. Family goal is to discharge to home with home health services. - Time Time Spent with patient: 15-24 minutes Medications reviewed and adjusted accordingly: Yes Anticipated discharge: Home with Homehealth Within: within 72 hours - Inpatient Certification Based on my medical assessment, after consideration of the patient's comorbidities, presenting symptoms, or acuity I expect that the services needed warrant INPATIENT care.: Yes I certify that my determination is in accordance with my understanding of Medicare's requirements for reasonable and necessary INPATIENT services [42 CFR 412.3e].: Yes Medical Necessity: Risk of Complication if Not Cared For in Hospital
[2018-04-01] MEDS: SALMETEROL XINAFOATE DISKUS 50 MCG/1 DOSE 28 DOSE IH SCH ×2 (13:36→21:11)
[2018-04-01] MEDS: LORAZEPAM 1 MG TABLET NG PRN (20:05)
[2018-04-01] MEDS: PHARMACY COMMUNICATION ORDER MC SCH (21:08)
[2018-04-02] MEDS: LEVALBUTEROL HCL NEB 0.63 MG/3 ML AMPUL NEB SCH ×4 (01:34→21:01)
[2018-04-02] MEDS: MEROPENEM 1 GM in NORMAL SALINE 50 ML IV SCH (05:20)
[2018-04-02] MEDS: HEPARIN SOD (PORCINE) 5,000 UNIT/ML 1 ML SYRINGE SUBCUT SCH ×3 (05:21→21:55)
[2018-04-02] MEDS: SIMETHICONE 80 MG TAB.CHEW PO PRN (05:21)
[2018-04-02] MEDS: TIOTROPIUM BROMIDE DPI 5 CAP/KIT (18 MCG/CAP) IH SCH (05:21)
[2018-04-02] MEDS: BUSPIRONE HCL 10 MG TABLET PO SCH ×3 (05:21→21:56)
[2018-04-02 06:34] LABS: ABSOLUTE BASOPHILS # (AUTO) 0.1 10^3/uL (0.0-0.2); ABSOLUTE EOSINOPHILS # (AUTO) 0.6 10^3/uL (0.0-0.6); ABSOLUTE MONOCYTES (AUTO) 0.9 10^3/uL (0.1-1.4); ABSOLUTE NEUT (AUTO) 7.8 10^3/uL (1.7-8.2); BASOPHILS % (AUTO) 0.7 % (0-2); EOSINOPHILS % (AUTO) 5.1 % (0-6); HEMATOCRIT 24.6 % (36.0-47.0); HEMOGLOBIN 8.4 g/dL (12.0-15.5); LYMPHOCYTES % (AUTO) 17.3 % (13-45); MEAN CORPUSCULAR HEMOGLOBIN 28.6 pg (27.0-33.4); MEAN CORPUSCULAR VOLUME 84 fl (80-97); MONOCYTES % (AUTO) 8.2 % (3-13); PLATELET COUNT 530 10^3/uL (150-450); RED BLOOD COUNT 2.93 10^6/uL (3.72-5.28); RED CELL DISTRIBUTION WIDTH 15.9 % (11.5-14.0); SEGMENTED NEUTROPHILS % (AUTO) 68.7 % (42-78); TOTAL CELLS COUNTED % (AUTO) 100 %; WHITE BLOOD COUNT 11.3 10^3/uL (4.0-10.5)
[2018-04-02 06:59] LABS: ALANINE AMINOTRANSFERASE 60 U/L (9-52); ALBUMIN 3.1 g/dL (3.5-5.0); ALKALINE PHOSPHATASE 258 U/L (38-126); ANION GAP 10 (5-19); ASPARTATE AMINO TRANSFERASE 38 U/L (14-36); BILIRUBIN,DIRECT 0.4 mg/dL (0.0-0.4); BILIRUBIN,TOTAL 0.9 mg/dL (0.2-1.3); BLOOD UREA NITROGEN 14 mg/dL (7-20); CALCIUM 9.1 mg/dL (8.4-10.2); CARBON DIOXIDE 33 mmol/L (22-30); CHLORIDE 97 mmol/L (98-107); GLUCOSE 99 mg/dL (75-110); SODIUM 140.3 mmol/L (137-145); TOTAL PROTEIN 5.8 g/dL (6.3-8.2)
[2018-04-02 07:04] LABS: POTASSIUM 2.8 mmol/L (3.6-5.0)
[2018-04-02] MEDS: INSULIN REG, HUMAN 100 UNIT/ML 3 ML VIAL (PYX) SUBCUT SCH ×4 (07:47→21:46)
--- NOTE | 2018-04-02 08:56 | PDOC PROGRESS REPORT ---
Subjective Progress Note for:: 04/02/18 Reason For Visit: GALLBLADDER CANCER Physical Exam Vital Signs: Temp Pulse Resp BP Pulse Ox 98.3 F 89 20 131/62 H 96 04/02/18 07:23 04/02/18 07:23 04/02/18 07:23 04/02/18 07:23 04/02/18 07:23 Intake & Output 04/01/18 04/02/18 04/03/18 06:59 06:59 06:59 Intake Total 500 350 Output Total 3335 1850 Balance -2835 -1500 Weight 87.2 kg 86 kg General appearance: PRESENT: no acute distress, cooperative Eye exam: PRESENT: EOMI Mouth exam: PRESENT: dry mucosa Neck exam: PRESENT: full ROM Cardiovascular exam: PRESENT: RRR Pulses: PRESENT: normal radial pulses, normal femoral pulses GI/Abdominal exam: PRESENT: soft - DRAIN WITH MIN OP Extremities exam: PRESENT: full ROM Musculoskeletal exam: PRESENT: full ROM Results Laboratory Results: 04/02/18 06:15 04/02/18 06:15 04/01/18 04/02/18 04/02/18 06:45 06:15 06:15 WBC 11.3 H RBC 2.93 L Hgb 8.4 L Hct 24.6 L MCV 84 MCH 28.6 MCHC 34.0 RDW 15.9 H Plt Count 530 H Seg Neutrophils % 68.7 Lymphocytes % 17.3 Monocytes % 8.2 Eosinophils % 5.1 Basophils % 0.7 Absolute Neutrophils 7.8 Absolute Lymphocytes 2.0 Absolute Monocytes 0.9 Absolute Eosinophils 0.6 Absolute Basophils 0.1 Sodium 142.0 140.3 Potassium 3.2 L 2.8 L* Chloride 101 97 L Carbon Dioxide 33 H 33 H Anion Gap 8 10 BUN 15 14 Creatinine 0.59 0.55 Est GFR ( Amer) > 60 > 60 Est GFR (Non-Af Amer) > 60 > 60 Glucose 89 99 Calcium 8.8 9.1 Magnesium 2.1 1.8 Total Bilirubin 0.9 AST 38 H ALT 60 H Alkaline Phosphatase 258 H Total Protein 5.8 L Albumin 3.1 L 03/27/18 09:56 Blood Blood Culture - Final NO GROWTH IN 5 DAYS 03/27/18 10:01 Blood Blood Culture - Final NO GROWTH IN 5 DAYS 03/16/18 03/18/18 03/18/18 05:06 04:45 19:10 CK-MB (CK-2) 1.10 Troponin I < 0.012 < 0.012 NT-Pro-B Natriuret Pep 513 03/18/18 03/20/18 19:50 12:05 CK-MB (CK-2) Troponin I NT-Pro-B Natriuret Pep 272 659 Impressions: KUB X-Ray 03/11/18 00:00 IMPRESSION: There are mildly dilated small bowel loops throughout the left abdomen, developing ileus or obstruction possible. Hepatobiliary Scan Nuclear Medicine 03/12/18 00:00 IMPRESSION: Bile leak in the gallbladder fossa. Catheter Placement 03/14/18 00:00 IMPRESSION: IMAGE(S) OBTAINED DURING PROCEDURE. Fluoroscopy 03/14/18 00:00 IMPRESSION: IMAGE(S) OBTAINED DURING PROCEDURE. Chest/Abdomen CTA 03/18/18 00:00 IMPRESSION: 1 . Status post cholecystectomy with pneumobilia. Upper abdominal ascites and pneumoperitoneum consistent with postsurgical change. 2. Bibasilar atelectasis with pleural effusions. Acute Abdomen Series 03/20/18 00:00 IMPRESSION: Postop ileus. Retroperitoneal Abscess Drainage 03/20/18 00:00 IMPRESSION: Successful CT-guided placement of drainage catheter. Thoracentesis Ultrasound 03/23/18 12:00 IMPRESSION: Small volume right-sided thoracentesis utilizing ultrasound guidance as detailed above. Abdomen/Pelvis CT 03/27/18 00:00 IMPRESSION: SURGICAL CHANGES IN THE GALLBLADDER FOSSA WITH PERCUTANEOUS DRAINAGE CATHETERS. NO SIGNIFICANT RESIDUAL FLUID COLLECTION. SMALL AMOUNT OF ASCITES. NO FOCAL FLUID COLLECTION CONCERNING FOR DEVELOPING ABSCESS. OTHER INCIDENTAL FINDINGS ABOVE. Head CT 03/27/18 10:08 IMPRESSION: NORMAL BRAIN CT WITHOUT CONTRAST. EVIDENCE OF ACUTE STROKE: NO. Chest CT 03/27/18 15:00 IMPRESSION: MODERATE BILATERAL PLEURAL EFFUSIONS WITH BASILAR ATELECTASIS/ CONSOLIDATION. OVERALL NO SIGNIFICANT CHANGE. Interventional Vascular Procedure 03/28/18 00:00 IMPRESSION: SUCCESSFUL PLACEMENT OF A 5 FR DUAL LUMEN 35 CM PICC IN THE LEFT BASILIC VEIN. PICC Line Insertion 03/28/18 00:00 IMPRESSION: SUCCESSFUL PLACEMENT OF A 5 FR DUAL LUMEN 35 CM PICC IN THE LEFT BASILIC VEIN. Chest X-Ray 03/31/18 00:00 IMPRESSION: Left basilar consolidation. Small right pleural effusion. No significant change. Assessment & Plan - Diagnosis (1) Acute respiratory failure with hypoxia Is this a current diagnosis for this admission?: Yes (3) Bile leak, postoperative Is this a current diagnosis for this admission?: Yes (4) Full code status Is this a current diagnosis for this admission?: Yes - Plan Summary Plan Summary: PT DOING WELL UP AMBULATING PASSING NL BM;S EV SOFT DIET STILL IWTH 02 JASKARAN DRAIN WITH MIN OP PLAN WILL DC [facility] WILL DC DRAIN UPON DISCHARGE WILL DEFER TO MEDICINE ABOUT DISCHARGE.
[2018-04-02] MEDS ORDERED: POTASSIUM CHLORIDE 10 MEQ CAPSULE.ER PO ONE (09:30)
[2018-04-02] MEDS ORDERED: MAGNESIUM SULFATE/D5W 1 GM/100 ML RTUPB IV ONE (09:30)
[2018-04-02] MEDS: FUROSEMIDE INJ/PF 40 MG/4 ML SDV IV SCH (09:53)
[2018-04-02] MEDS: FAMOTIDINE INJ/PF 20 MG/2 ML SDV IV SCH ×2 (09:53→21:55)
[2018-04-02] MEDS: POTASSI CL 20 MEQ/50 ML RIDER 20 MEQ/50 ML RTUPB IV SCH ×2 (09:53→11:38)
[2018-04-02] MEDS: NORMAL SALINE 10 ML SDV (SCHEDULED) IV SCH ×2 (09:53→21:55)
[2018-04-02] MEDS: SENNOSIDES/DOCUSATE 8.6-50 MG 1 EACH TABLET PO SCH ×2 (09:54→17:50)
[2018-04-02] MEDS: LIDOCAINE 5% (700 MG) TRANSDERMAL ADH..PATCH TP SCH (10:11)
[2018-04-02] MEDS: SALMETEROL XINAFOATE DISKUS 50 MCG/1 DOSE 28 DOSE IH SCH ×2 (11:05→21:56)
[2018-04-02] MEDS: ALBUMIN HUMAN 12.5 GM/50 ML RTUINJ IV SCH (11:07)
[2018-04-02] MEDS: FLUCONAZOLE 200 MG/NS RTU 200 MG/100 ML RTUPB IV SCH (11:18)
[2018-04-02] MEDS: OXYCODONE-ACETAMINOPHEN 5-325 MG TABLET NG PRN (18:05)
--- NOTE | 2018-04-02 20:47 | PDOC PROGRESS REPORT ---
Subjective Progress Note for:: 04/02/18 Subjective:: 63 y.o. F with HTN, asthma and COPD admitted to [facility] 03/01/2018 for c holecystectomy to remove cancerous gallbladder. Within days of surgery there was a large amount of output noted in her JASKARAN drain. The patient underwent an ERCP on 03/14/2018 with CBD stent placement. Within 24hrs she began developing signs of sepsis and the hospitalist service was consulted for medical management. The patient was seen on morning rounds. She was sitting upright in bed. The patient was extubated 03/24/18 weaned to BIPAP (QHS) and nasal cannula during the day. She is fully awake today, A&Ox4, follows all commands. The nursing staff report that the patient is consistently refusing her inhalers. The patient reports she no longer wants to take her Spiriva she feels that is causes chest tightness. Will switch to Advair. Patient still w/ very mild peripheral edema. Lungs CTA, diminished in b/l bases. D/c BID albumin and decrease lasix to once daily. Additionally, patient has been on Meropenem since 03/19/2018. Will d/c today given her improved clinical picture. Ms. Mendoza looks markedly better today. Hopefully can discharge home this week. Reason For Visit: GALLBLADDER CANCER Physical Exam Vital Signs: Temp Pulse Resp BP Pulse Ox 98.6 F 103 H 18 117/49 L 94 04/02/18 16:10 04/02/18 19:43 04/02/18 16:10 04/02/18 16:10 04/02/18 16:10 Intake & Output 04/01/18 04/02/18 04/03/18 06:59 06:59 06:59 Intake Total 500 350 787 Output Total 3335 1850 675 Balance -2835 -1500 112 Weight 87.2 kg 86 kg General appearance: PRESENT: morbidly obese Head exam: PRESENT: atraumatic Eye exam: PRESENT: conjunctiva pink, PERRLA Mouth exam: PRESENT: moist Neck exam: PRESENT: full ROM Respiratory exam: PRESENT: clear to auscultation christian, decreased breath sounds - L>R, symmetrical, unlabored Cardiovascular exam: PRESENT: RRR Pulses: PRESENT: normal radial pulses, normal dorsalis pedis pul Vascular exam: PRESENT: pallor GI/Abdominal exam: PRESENT: distended, soft, tenderness Rectal exam: PRESENT: deferred Extremities exam: PRESENT: full ROM Musculoskeletal exam: PRESENT: ambulatory - with assistance, full ROM Neurological exam: PRESENT: alert, awake, oriented to person, oriented to place, oriented to time, oriented to situation Psychiatric exam: PRESENT: appropriate affect Skin exam: PRESENT: dry, intact, pallor Results Laboratory Results: 04/02/18 06:15 04/02/18 06:15 04/02/18 04/02/18 06:15 06:15 WBC 11.3 H RBC 2.93 L Hgb 8.4 L Hct 24.6 L MCV 84 MCH 28.6 MCHC 34.0 RDW 15.9 H Plt Count 530 H Seg Neutrophils % 68.7 Lymphocytes % 17.3 Monocytes % 8.2 Eosinophils % 5.1 Basophils % 0.7 Absolute Neutrophils 7.8 Absolute Lymphocytes 2.0 Absolute Monocytes 0.9 Absolute Eosinophils 0.6 Absolute Basophils 0.1 Sodium 140.3 Potassium 2.8 L* Chloride 97 L Carbon Dioxide 33 H Anion Gap 10 BUN 14 Creatinine 0.55 Est GFR ( Amer) > 60 Est GFR (Non-Af Amer) > 60 Glucose 99 Calcium 9.1 Magnesium 1.8 Total Bilirubin 0.9 AST 38 H ALT 60 H Alkaline Phosphatase 258 H Total Protein 5.8 L Albumin 3.1 L 03/16/18 03/18/18 03/18/18 05:06 04:45 19:10 CK-MB (CK-2) 1.10 Troponin I < 0.012 < 0.012 NT-Pro-B Natriuret Pep 513 03/18/18 03/20/18 19:50 12:05 CK-MB (CK-2) Troponin I NT-Pro-B Natriuret Pep 272 659 Impressions: KUB X-Ray 03/11/18 00:00 IMPRESSION: There are mildly dilated small bowel loops throughout the left abdomen, developing ileus or obstruction possible. Hepatobiliary Scan Nuclear Medicine 03/12/18 00:00 IMPRESSION: Bile leak in the gallbladder fossa. Catheter Placement 03/14/18 00:00 IMPRESSION: IMAGE(S) OBTAINED DURING PROCEDURE. Fluoroscopy 03/14/18 00:00 IMPRESSION: IMAGE(S) OBTAINED DURING PROCEDURE. Chest/Abdomen CTA 03/18/18 00:00 IMPRESSION: 1 . Status post cholecystectomy with pneumobilia. Upper abdominal ascites and pneumoperitoneum consistent with postsurgical change. 2. Bibasilar atelectasis with pleural effusions. Acute Abdomen Series 03/20/18 00:00 IMPRESSION: Postop ileus. Retroperitoneal Abscess Drainage 03/20/18 00:00 IMPRESSION: Successful CT-guided placement of drainage catheter. Thoracentesis Ultrasound 03/23/18 12:00 IMPRESSION: Small volume right-sided thoracentesis utilizing ultrasound guidance as detailed above. Abdomen/Pelvis CT 03/27/18 00:00 IMPRESSION: SURGICAL CHANGES IN THE GALLBLADDER FOSSA WITH PERCUTANEOUS DRAINAGE CATHETERS. NO SIGNIFICANT RESIDUAL FLUID COLLECTION. SMALL AMOUNT OF ASCITES. NO FOCAL FLUID COLLECTION CONCERNING FOR DEVELOPING ABSCESS. OTHER INCIDENTAL FINDINGS ABOVE. Head CT 03/27/18 10:08 IMPRESSION: NORMAL BRAIN CT WITHOUT CONTRAST. EVIDENCE OF ACUTE STROKE: NO. Chest CT 03/27/18 15:00 IMPRESSION: MODERATE BILATERAL PLEURAL EFFUSIONS WITH BASILAR ATELECTASIS/ CONSOLIDATION. OVERALL NO SIGNIFICANT CHANGE. Interventional Vascular Procedure 03/28/18 00:00 IMPRESSION: SUCCESSFUL PLACEMENT OF A 5 FR DUAL LUMEN 35 CM PICC IN THE LEFT BASILIC VEIN. PICC Line Insertion 03/28/18 00:00 IMPRESSION: SUCCESSFUL PLACEMENT OF A 5 FR DUAL LUMEN 35 CM PICC IN THE LEFT BASILIC VEIN. Chest X-Ray 03/31/18 00:00 IMPRESSION: Left basilar consolidation. Small right pleural effusion. No significant change. Status: Imported from PACS Assessment & Plan - Diagnosis (1) Sepsis Is this a current diagnosis for this admission?: No Plan: Improving. WBCs improving today (18-->15-->14-->13-->11). Sepsis secondary to intra-abdominal infection. Evidence by tachycardia, leukocyosis, fever (SDRU266.2), tachypnea (RR 24-40) No evidence of PNA. Blood cultures (03/16/18, 03/20/18, 03/27/18) negative. Now s/p percutaneous drain placement. Peritoneal fluid C/S growing klebsiella pneumoniae, enterococcus faecalis, yeast. AFB and Fungal smears pending. Sputum culture shows yeast. Thoracic fluid AFB smear pending. Culture has no growth (final). Repeat CT Chest shows moderate b/l pleural effusions, essentially unchanged. Influenza A/B negative Clinical picture significantly improved. She has received approx. 14 days of meropenem. ok to d/c today. Previously received Cipro pre-operatively before Ex Lap, postoperatively received Ancef and Flagyl 03/06-03/13 (2) Respiratory failure Qualifiers: Chronicity: acute Is this a current diagnosis for this admission?: Yes Plan: Improved; tolerating BiPAP QHS; Nasal cannula during the day Secondary to poor respiratory effort/splinting stemming from postoperative pain resulting in atelectasis and bilateral pleural effusions; complicated by sepsis. Bilateral pleural effusions on CTA. Continue to be present on CXR and CT. ProBNP 659, echocardiogram is reassuring. LVEF 65%, normal diastolic function Thoracentesis; only 20 mL out Repeat Chest CT 03/27 shows moderate b/l pleural effusions, basically unchanged from previous imaging studies Influenza negative Continue supplemental oxygen, BIPAP as needed to maintain oxygen saturations. Scheduled and as needed nebulizer treatments. Inititate Advair, d/c spirival and serevent Continue to diuresis as BP and kidney function allows - lasix and albumin BID Pulmonology is consulted; appreciate Dr. Booth's assistance. 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 Tadeo's assistance. Surgery is primary; appreciate Dr. Michaud's expertise with surgical/oncological cases. Swallow evaluation yesterday, patient able to tolerate solid foods, plan for diet initiation Carb meal pattern with thin liquids, no straws No longer requiring TPN (4) Anxiety Is this a current diagnosis for this admission?: Yes Plan: Patient has a PMH of anxiety Family reports the patient has been significantly anxious while inpatient Ativan 1 mg PO every 4 hours as needed. BuSpar three times daily. (5) Hypotension Is this a current diagnosis for this admission?: Yes Plan: Resolved; blood pressures are now stable Secondary to sepsis. Off robert-Synephrine. Previously provided albumin and Hespan. BID IV lasix and albumin for fluid mobilization. (6) Postoperative pain Is this a current diagnosis for this admission?: Yes Plan: Status post cholecystectomy and ERCP Postoperative pain may have contributed to her acute respiratory failure with hypoxia secondary to splinting. Continue providing analgesics as needed. Oxycodone, IV tylenol or toradaol is available. Lidoderm patches, repositioning. (7) Full code status Is this a current diagnosis for this admission?: Yes (8) Anemia Qualifiers: Other causes of anemia: chronic disease, other Is this a current diagnosis for this admission?: Yes Plan: Hgb 8.4 today Occult stool negative No evidence of ongoing bleeding. Will monitor closely and continue to provide additional PRBC for Hgb <8 Registered dietitian is consulted (9) COPD (chronic obstructive pulmonary disease) Qualifiers: COPD type: unspecified COPD Qualified Code(s): J44.9 - Chronic obstructive pulmonary disease, unspecified Is this a current diagnosis for this admission?: Yes Plan: Without exacerbation at this time. Switched back to serevent Management as above. (10) Tobacco abuse Is this a current diagnosis for this admission?: Yes Plan: Nicotine replacement therapy is offered. (11) Debility Is this a current diagnosis for this admission?: Yes Plan: PT/OT Patient able to sit on edge of bed, stand and pivot Discharge planning is consulted. Family goal is to discharge to home with home health services. Will need home O2, home health, home pt/ot. - Time Time Spent with patient: 15-24 minutes Medications reviewed and adjusted accordingly: Yes Anticipated discharge: Home Within: within 24 hours, within 48 hours - Inpatient Certification Based on my medical assessment, after consideration of the patient's comorbidities, presenting symptoms, or acuity I expect that the services needed warrant INPATIENT care.: Yes I certify that my determination is in accordance with my understanding of Medicare's requirements for reasonable and necessary INPATIENT services [42 CFR 412.3e].: Yes Medical Necessity: Significant Comorbidiites Make Outpatient Treatment Too Risky
[2018-04-02] MEDS: PHARMACY COMMUNICATION ORDER MC SCH (21:56)
[2018-04-03] MEDS: LEVALBUTEROL HCL NEB 0.63 MG/3 ML AMPUL NEB SCH ×4 (01:52→21:37)
[2018-04-03 04:36] LABS: ABSOLUTE BASOPHILS # (AUTO) 0.2 10^3/uL (0.0-0.2); ABSOLUTE EOSINOPHILS # (AUTO) 0.7 10^3/uL (0.0-0.6); ABSOLUTE LYMPHOCYTES (AUTO) 1.7 10^3/uL (0.5-4.7); ABSOLUTE MONOCYTES (AUTO) 0.8 10^3/uL (0.1-1.4); ABSOLUTE NEUT (AUTO) 7.9 10^3/uL (1.7-8.2); BASOPHILS % (AUTO) 1.4 % (0-2); EOSINOPHILS % (AUTO) 6.4 % (0-6); HEMATOCRIT 27.8 % (36.0-47.0); HEMOGLOBIN 9.3 g/dL (12.0-15.5); LYMPHOCYTES % (AUTO) 15.4 % (13-45); MEAN CORPUSCULAR HEMOGLOBIN 28.1 pg (27.0-33.4); MEAN CORPUSCULAR HGB CONC 33.4 g/dL (32.0-36.0); MEAN CORPUSCULAR VOLUME 84 fl (80-97); MONOCYTES % (AUTO) 7.2 % (3-13); PLATELET COUNT 549 10^3/uL (150-450); RED CELL DISTRIBUTION WIDTH 15.9 % (11.5-14.0); SEGMENTED NEUTROPHILS % (AUTO) 69.6 % (42-78); TOTAL CELLS COUNTED % (AUTO) 100 %; WHITE BLOOD COUNT 11.3 10^3/uL (4.0-10.5)
[2018-04-03 04:57] LABS: ALANINE AMINOTRANSFERASE 55 U/L (9-52); ALBUMIN 3.2 g/dL (3.5-5.0); ALKALINE PHOSPHATASE 242 U/L (38-126); ANION GAP 10 (5-19); ASPARTATE AMINO TRANSFERASE 40 U/L (14-36); BILIRUBIN,DIRECT 0.5 mg/dL (0.0-0.4); BILIRUBIN,TOTAL 0.8 mg/dL (0.2-1.3); BLOOD UREA NITROGEN 14 mg/dL (7-20); CALCIUM 9.4 mg/dL (8.4-10.2); CARBON DIOXIDE 33 mmol/L (22-30); CHLORIDE 98 mmol/L (98-107); GLUCOSE 93 mg/dL (75-110); POTASSIUM 3.4 mmol/L (3.6-5.0); SODIUM 140.7 mmol/L (137-145); TOTAL PROTEIN 6.1 g/dL (6.3-8.2)
[2018-04-03] MEDS: HEPARIN SOD (PORCINE) 5,000 UNIT/ML 1 ML SYRINGE SUBCUT SCH ×3 (05:28→21:38)
[2018-04-03] MEDS: BUSPIRONE HCL 10 MG TABLET PO SCH ×3 (05:28→21:41)
[2018-04-03] MEDS: SENNOSIDES/DOCUSATE 8.6-50 MG 1 EACH TABLET PO SCH ×2 (09:34→17:53)
[2018-04-03] MEDS: INSULIN REG, HUMAN 100 UNIT/ML 3 ML VIAL (PYX) SUBCUT SCH ×4 (09:34→22:00)
[2018-04-03] MEDS: FAMOTIDINE INJ/PF 20 MG/2 ML SDV IV SCH (09:38)
[2018-04-03] MEDS: FLUCONAZOLE 200 MG/NS RTU 200 MG/100 ML RTUPB IV SCH (09:38)
[2018-04-03] MEDS: LIDOCAINE 5% (700 MG) TRANSDERMAL ADH..PATCH TP SCH (09:39)
[2018-04-03] MEDS: NORMAL SALINE 10 ML SDV (SCHEDULED) IV SCH ×2 (09:40→21:39)
[2018-04-03] MEDS ORDERED: FUROSEMIDE INJ/PF 40 MG/4 ML SDV IV SCH (10:00)
[2018-04-03] MEDS: FLUTICASONE/SALMETEROL DISKUS 250-50 MCG/DOSE IH SCH ×2 (10:49→21:39)
[2018-04-03] MEDS ORDERED: PHENOL/SODIUM PHENOLATE 100 SPRAY/177 ML BOTTLE PO PRN (11:15)
[2018-04-03] MEDS ORDERED: POTASSIUM CHLORIDE 10 MEQ CAPSULE.ER PO ONE (14:00)
--- NOTE | 2018-04-03 16:10 | PDOC PROGRESS REPORT ---
Subjective Progress Note for:: 04/03/18 Subjective:: 63 y.o. F with HTN, asthma and COPD admitted to [facility] 03/01/2018 for ch olecystectomy to remove cancerous gallbladder. Within days of surgery there was a large amount of output noted in her JASKARAN drain. The patient underwent an ERCP on 03/14/2018 with CBD stent placement. Within 24hrs she began developing signs of sepsis and the hospitalist service was consulted for medical management. Follow up CT Abd/Pelvis showed small amount of free air in RUQ and pneumobilia, small a mount of free fluid surrounding the liver and in RUQ, and a small R pleural effusion. The patient was seen on morning rounds. She was found ambulating in her room using front wheel walker with assistance. She was extubated 03/24/18. She has been weaned to BiPAP nightly with nasal cannula during the day. She reports continued generalized weakness, though is encouraged by her increased mobility. She is hopeful to be discharged home with home health nursing and physical therapy in the near future. She denies fever, chills, headache, dizziness, chest pain, palpitations, dyspnea at rest, orthopnea, cough, nausea vomiting and diarrhea. She does endorse slight dyspnea with exertion, though states that this is not inhibiting her ability to ambulate to and from the bathroom. She has no other questions or concerns today. Nursing requesting to transition to all p.o. medications. Reason For Visit: GALLBLADDER CANCER Physical Exam Vital Signs: Temp Pulse Resp BP Pulse Ox 99.1 F 103 H 16 125/66 97 04/03/18 11:30 04/03/18 14:03 04/03/18 14:03 04/03/18 11:30 04/03/18 14:03 Intake & Output 04/02/18 04/03/18 04/04/18 06:59 06:59 06:59 Intake Total 350 787 437 Output Total 1850 675 900 Balance -1500 112 -463 Weight 86 kg 82.5 kg General appearance: PRESENT: no acute distress, disheveled, obese, well- developed, well-nourished Head exam: PRESENT: atraumatic, normocephalic Eye exam: PRESENT: conjunctiva pink, EOMI, PERRLA. ABSENT: scleral icterus Ear exam: PRESENT: normal external ear exam Mouth exam: PRESENT: moist, tongue midline Neck exam: ABSENT: carotid bruit, JVD, lymphadenopathy, thyromegaly Respiratory exam: PRESENT: clear to auscultation christian, decreased breath sounds - L>R, symmetrical, unlabored, other - Supplemental oxygen via nasal cannula. ABSENT: rales, rhonchi, wheezes Cardiovascular exam: PRESENT: RRR. ABSENT: diastolic murmur, rubs, systolic murmur Pulses: PRESENT: normal dorsalis pedis pul Vascular exam: PRESENT: normal capillary refill GI/Abdominal exam: PRESENT: normal bowel sounds, soft. ABSENT: distended, guarding, mass, organolmegaly, rebound, tenderness Rectal exam: PRESENT: deferred Extremities exam: PRESENT: full ROM. ABSENT: calf tenderness, clubbing, pedal edema Musculoskeletal exam: PRESENT: ambulatory - With assistance Neurological exam: PRESENT: alert, awake, oriented to person, oriented to place, oriented to time, oriented to situation, CN II-XII grossly intact. ABSENT: motor sensory deficit Psychiatric exam: PRESENT: appropriate affect, normal mood. ABSENT: homicidal ideation, suicidal ideation Skin exam: PRESENT: dry, intact, pallor, warm. ABSENT: cyanosis, rash Results Laboratory Results: 04/03/18 04:10 04/03/18 04:10 04/03/18 04/03/18 04:10 04:10 WBC 11.3 H RBC 3.30 L Hgb 9.3 L Hct 27.8 L MCV 84 MCH 28.1 MCHC 33.4 RDW 15.9 H Plt Count 549 H Seg Neutrophils % 69.6 Lymphocytes % 15.4 Monocytes % 7.2 Eosinophils % 6.4 H Basophils % 1.4 Absolute Neutrophils 7.9 Absolute Lymphocytes 1.7 Absolute Monocytes 0.8 Absolute Eosinophils 0.7 H Absolute Basophils 0.2 Sodium 140.7 Potassium 3.4 L Chloride 98 Carbon Dioxide 33 H Anion Gap 10 BUN 14 Creatinine 0.54 Est GFR ( Amer) > 60 Est GFR (Non-Af Amer) > 60 Glucose 93 Calcium 9.4 Magnesium 2.1 Total Bilirubin 0.8 AST 40 H ALT 55 H Alkaline Phosphatase 242 H Total Protein 6.1 L Albumin 3.2 L 03/16/18 03/18/18 03/18/18 05:06 04:45 19:10 CK-MB (CK-2) 1.10 Troponin I < 0.012 < 0.012 NT-Pro-B Natriuret Pep 513 03/18/18 03/20/18 19:50 12:05 CK-MB (CK-2) Troponin I NT-Pro-B Natriuret Pep 272 659 Impressions: KUB X-Ray 03/11/18 00:00 IMPRESSION: There are mildly dilated small bowel loops throughout the left abdo men, developing ileus or obstruction possible. Hepatobiliary Scan Nuclear Medicine 03/12/18 00:00 IMPRESSION: Bile leak in the gallbladder fossa. Catheter Placement 03/14/18 00:00 IMPRESSION: IMAGE(S) OBTAINED DURING PROCEDURE. Fluoroscopy 03/14/18 00:00 IMPRESSION: IMAGE(S) OBTAINED DURING PROCEDURE. Chest/Abdomen CTA 03/18/18 00:00 IMPRESSION: 1 . Status post cholecystectomy with pneumobilia. Upper abdominal ascites and pneumoperitoneum consistent with postsurgical change. 2. Bibasilar atelectasis with pleural effusions. Acute Abdomen Series 03/20/18 00:00 IMPRESSION: Postop ileus. Retroperitoneal Abscess Drainage 03/20/18 00:00 IMPRESSION: Successful CT-guided placement of drainage catheter. Thoracentesis Ultrasound 03/23/18 12:00 IMPRESSION: Small volume right-sided thoracentesis utilizing ultrasound guidance as detailed above. Abdomen/Pelvis CT 03/27/18 00:00 IMPRESSION: SURGICAL CHANGES IN THE GALLBLADDER FOSSA WITH PERCUTANEOUS DRAINAGE CATHETERS. NO SIGNIFICANT RESIDUAL FLUID COLLECTION. SMALL AMOUNT OF ASCITES. NO FOCAL FLUID COLLECTION CONCERNING FOR DEVELOPING ABSCESS. OTHER INCIDENTAL FINDINGS ABOVE. Head CT 03/27/18 10:08 IMPRESSION: NORMAL BRAIN CT WITHOUT CONTRAST. EVIDENCE OF ACUTE STROKE: NO. Chest CT 03/27/18 15:00 IMPRESSION: MODERATE BILATERAL PLEURAL EFFUSIONS WITH BASILAR ATELECTASIS/ CONSOLIDATION. OVERALL NO SIGNIFICANT CHANGE. Interventional Vascular Procedure 03/28/18 00:00 IMPRESSION: SUCCESSFUL PLACEMENT OF A 5 FR DUAL LUMEN 35 CM PICC IN THE LEFT BASILIC VEIN. PICC Line Insertion 03/28/18 00:00 IMPRESSION: SUCCESSFUL PLACEMENT OF A 5 FR DUAL LUMEN 35 CM PICC IN THE LEFT BASILIC VEIN. Chest X-Ray 03/31/18 00:00 IMPRESSION: Left basilar consolidation. Small right pleural effusion. No significant change. Assessment & Plan - Diagnosis (1) Sepsis Is this a current diagnosis for this admission?: No Plan: Improved; WBC is trending down (18-->15-->14-->13-->11), patient remains afebrile, no longer tachycardic, and with normal blood pressures. Sepsis secondary to intra-abdominal infection. Evidence by tachycardia, leukocyosis, fever (CGMQ956.2), tachypnea (RR 24-40) No evidence of PNA. Blood cultures (03/16/18, 03/20/18, 03/27/18) negative at 5 days Urinalysis negative; repeat is nml. Culture is negative Now s/p percutaneous drain placement. Peritoneal fluid C/S growing klebsiella pneumoniae, enterococcus faecalis, yeast. AFB and Fungal smears pending. Sputum culture shows yeast. Thoracic fluid AFB smear pending. Culture has no growth (final). Repeat CT Chest/ABD/Pelvis pending. Influenza A/B negative Meropenem discontinued after 14 days of therapy. Vancomycin discontinued 03/25/18 Continues on IV fluconazole. Infectious Disease is consulted; appreciate Dr. Vela's evaluation and recommendations. Previously received Cipro pre-operatively before Ex Lap, postoperatively received Ancef and Flagyl 03/06-03/13 (2) Acute respiratory failure with hypoxia Is this a current diagnosis for this admission?: Yes Plan: Improved; now on BiPAP nightly with nasal cannula during the day. Secondary to poor respiratory effort/splinting stemming from postoperative pain resulting in atelectasis and bilateral pleural effusions; complicated by sepsis. Bilateral pleural effusions on CTA.. Continue to be present on CXR and CT chest. ProBNP 659, echocardiogram is reassuring. LVEF 65%, normal diastolic function Thoracentesis; only 20 mL out. Repeat Chest CT 03/27 shows moderate b/l pleural effusions, basically unchanged from previous imaging studies Influenza negative. Continue supplemental oxygen, mechanical ventilation as needed to maintain oxygen saturations. Scheduled and as needed nebulizer treatments. Will reduce frequency of sc heduled nebulizers. Continue Advair. Continue to diuresis; transition to p.o. lasix today Pulmonology is consulted; appreciate Dr. Booth's assistance. Overnight pulse oximetry study for BiPAP qualification testing. 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 Tadeo's assistance. Surgery is primary; appreciate Dr. Michaud's expertise with surgical/oncological cases. Patient has advanced to a consistent carb diet. Surgical plans to remove drains on day of discharge. Will require surgical and oncology follow-up as outpatient. (4) Postoperative pain Is this a current diagnosis for this admission?: Yes Plan: Improved; well controlled with current pain management regimen. Status post cholecystectomy and ERCP with JASKARAN and percutaneous drains in place. Postoperative pain may have contributed to her acute respiratory failure with hypoxia secondary to splinting. Continue providing analgesics as needed. Oxycodone and Tylenol as needed. Lidoderm patches, repositioning. (5) Anxiety Is this a current diagnosis for this admission?: Yes Plan: Patient has a PMH of anxiety Family reports the patient has been significantly anxious while inpatient Ativan 1 mg via every 4 hours as needed. BuSpar three times daily. Start Celexa. (6) Anemia Qualifiers: Other causes of anemia: chronic disease, other Is this a current diagnosis for this admission?: Yes Plan: Initial trend down, now stable; 9.3 today Now s/p 3 unit PRBC. No evidence of ongoing bleeding. Will monitor closely and provide additional PRBC for Hgb <8 Registered dietitian is consulted Multivitamin with iron supplementation (7) COPD (chronic obstructive pulmonary disease) Qualifiers: COPD type: unspecified COPD Qualified Code(s): J44.9 - Chronic obstructive pulmonary disease, unspecified Is this a current diagnosis for this admission?: Yes Plan: Chronic and without exacerbation at this time. Management as above. (8) Tobacco abuse Is this a current diagnosis for this admission?: Yes Plan: Nicotine replacement therapy is offered. (9) Hypotension Is this a current diagnosis for this admission?: Yes Plan: Resolved; blood pressures are now stable Off robert-Synephrine. Secondary to sepsis. (10) Debility Is this a current diagnosis for this admission?: Yes Plan: No ambulatory short distances with frontwheel walker and assistance. PT is consulted. Discharge planning is consulted. Family goal is to discharge to home with home health services. (11) Full code status Is this a current diagnosis for this admission?: Yes - Time Time Spent with patient: 25-34 minutes Medications reviewed and adjusted accordingly: Yes Anticipated discharge: Home with Homehealth Within: within 48 hours - Plan Summary Plan Summary: Transition to p.o. medications today, including p.o. Lasix for diuresis/fluid mobilization. Will discuss with surgery timing of transition to p.o. fluconazole versus discontinuation. Approaching discharge; will verify with surgery prior to discharge, anticipate patient will be ready within the next 48-72 hours.
[2018-04-03] MEDS: FUROSEMIDE 40 MG TABLET PO SCH (17:53)
[2018-04-03] MEDS: BENZONATATE 100 MG CAPSULE PO PRN (17:54)
[2018-04-03] MEDS: OXYCODONE-ACETAMINOPHEN 5-325 MG TABLET NG PRN (20:19)
[2018-04-03] MEDS: TIOTROPIUM BROMIDE DPI 5 CAP/KIT (18 MCG/CAP) IH SCH (21:39)
[2018-04-03] MEDS: PHARMACY COMMUNICATION ORDER MC SCH (21:40)
[2018-04-03] MEDS: FAMOTIDINE 20 MG TABLET PO SCH (21:41)
[2018-04-03] MEDS ORDERED: CITALOPRAM HYDROBROMIDE 20 MG TABLET PO SCH (22:00)
[2018-04-04] MEDS: LEVALBUTEROL HCL NEB 0.63 MG/3 ML AMPUL NEB SCH ×3 (02:27→14:29)
[2018-04-04 04:20] LABS: ABSOLUTE BASOPHILS # (AUTO) 0.1 10^3/uL (0.0-0.2); ABSOLUTE EOSINOPHILS # (AUTO) 0.8 10^3/uL (0.0-0.6); ABSOLUTE LYMPHOCYTES (AUTO) 1.6 10^3/uL (0.5-4.7); ABSOLUTE MONOCYTES (AUTO) 0.9 10^3/uL (0.1-1.4); ABSOLUTE NEUT (AUTO) 6.4 10^3/uL (1.7-8.2); BASOPHILS % (AUTO) 1.1 % (0-2); EOSINOPHILS % (AUTO) 7.8 % (0-6); HEMATOCRIT 25.8 % (36.0-47.0); HEMOGLOBIN 8.7 g/dL (12.0-15.5); LYMPHOCYTES % (AUTO) 16.8 % (13-45); MEAN CORPUSCULAR HEMOGLOBIN 28.2 pg (27.0-33.4); MEAN CORPUSCULAR HGB CONC 33.8 g/dL (32.0-36.0); MEAN CORPUSCULAR VOLUME 83 fl (80-97); MONOCYTES % (AUTO) 8.8 % (3-13); PLATELET COUNT 490 10^3/uL (150-450); RED CELL DISTRIBUTION WIDTH 16.3 % (11.5-14.0); SEGMENTED NEUTROPHILS % (AUTO) 65.5 % (42-78); TOTAL CELLS COUNTED % (AUTO) 100 %; WHITE BLOOD COUNT 9.7 10^3/uL (4.0-10.5)
[2018-04-04 04:24] LABS: ALANINE AMINOTRANSFERASE 66 U/L (9-52); ALBUMIN 3.1 g/dL (3.5-5.0); ALKALINE PHOSPHATASE 237 U/L (38-126); ANION GAP 11 (5-19); ASPARTATE AMINO TRANSFERASE 55 U/L (14-36); BILIRUBIN,DIRECT 0.4 mg/dL (0.0-0.4); BILIRUBIN,TOTAL 0.7 mg/dL (0.2-1.3); BLOOD UREA NITROGEN 11 mg/dL (7-20); CARBON DIOXIDE 33 mmol/L (22-30); CHLORIDE 95 mmol/L (98-107); GLUCOSE 99 mg/dL (75-110); SODIUM 139.3 mmol/L (137-145); TOTAL PROTEIN 5.8 g/dL (6.3-8.2)
[2018-04-04] MEDS: POTASSIUM CHLORIDE 20 MEQ/50 ML RTU IV SCH ×2 (04:59→07:09)
[2018-04-04] MEDS: HEPARIN SOD (PORCINE) 5,000 UNIT/ML 1 ML SYRINGE SUBCUT SCH ×2 (05:04→13:55)
[2018-04-04] MEDS: BUSPIRONE HCL 10 MG TABLET PO SCH ×2 (05:04→13:55)
[2018-04-04] MEDS: BENZONATATE 100 MG CAPSULE PO PRN (06:42)
--- NOTE | 2018-04-04 07:52 | PDOC PROGRESS REPORT ---
Subjective Progress Note for:: 04/04/18 Reason For Visit: GALLBLADDER CANCER Physical Exam Vital Signs: Temp Pulse Resp BP Pulse Ox 98.7 F 86 20 134/65 H 92 04/04/18 03:41 04/04/18 07:00 04/04/18 03:41 04/04/18 03:41 04/04/18 04:32 Pulse Oximeter Nocturnal Start: 04/03/18 11:54 Freq: RTQ4 Status: Active Protocol: Document 04/04/18 04:32 NSM (Rec: 04/04/18 05:04 NSM [id number]) Nocturnal Pulse Oximetry Equipment Usage Equipment in Use Oxygen Delivery Method (includes room Room Air air) O2 Sat by Pulse Oximetry (92-100) 92 Continuous Pulse Oximeter Set Up No Continuous SpO2 Discontinued No Continuous SpO2 Machine # [id number] Intake & Output 04/03/18 04/04/18 04/05/18 06:59 06:59 06:59 Intake Total 787 607 Output Total 675 2000 Balance 112 -1393 Weight 82.5 kg 83.6 kg General appearance: PRESENT: no acute distress Head exam: PRESENT: atraumatic Eye exam: PRESENT: conjunctiva pink Neck exam: PRESENT: full ROM Respiratory exam: PRESENT: clear to auscultation [facility] GI/Abdominal exam: PRESENT: soft, other - wound clean perc drain with min op drain removed Extremities exam: PRESENT: full ROM Musculoskeletal exam: PRESENT: ambulatory, full ROM Results Laboratory Results: 04/04/18 03:50 04/04/18 03:50 04/04/18 04/04/18 03:50 03:50 WBC 9.7 RBC 3.10 L Hgb 8.7 L Hct 25.8 L MCV 83 MCH 28.2 MCHC 33.8 RDW 16.3 H Plt Count 490 H Seg Neutrophils % 65.5 Lymphocytes % 16.8 Monocytes % 8.8 Eosinophils % 7.8 H Basophils % 1.1 Absolute Neutrophils 6.4 Absolute Lymphocytes 1.6 Absolute Monocytes 0.9 Absolute Eosinophils 0.8 H Absolute Basophils 0.1 Sodium 139.3 Potassium 3.0 L* Chloride 95 L Carbon Dioxide 33 H Anion Gap 11 BUN 11 Creatinine 0.55 Est GFR ( Amer) > 60 Est GFR (Non-Af Amer) > 60 Glucose 99 Calcium 9.0 Magnesium 1.8 Total Bilirubin 0.7 AST 55 H ALT 66 H Alkaline Phosphatase 237 H Total Protein 5.8 L Albumin 3.1 L 03/16/18 03/18/18 03/18/18 05:06 04:45 19:10 CK-MB (CK-2) 1.10 Troponin I < 0.012 < 0.012 NT-Pro-B Natriuret Pep 513 03/18/18 03/20/18 19:50 12:05 CK-MB (CK-2) Troponin I NT-Pro-B Natriuret Pep 272 659 Impressions: KUB X-Ray 03/11/18 00:00 IMPRESSION: There are mildly dilated small bowel loops throughout the left abdomen, developing ileus or obstruction possible. Hepatobiliary Scan Nuclear Medicine 03/12/18 00:00 IMPRESSION: Bile leak in the gallbladder fossa. Catheter Placement 03/14/18 00:00 IMPRESSION: IMAGE(S) OBTAINED DURING PROCEDURE. Fluoroscopy 03/14/18 00:00 IMPRESSION: IMAGE(S) OBTAINED DURING PROCEDURE. Chest/Abdomen CTA 03/18/18 00:00 IMPRESSION: 1 . Status post cholecystectomy with pneumobilia. Upper abdominal ascites and pneumoperitoneum consistent with postsurgical change. 2. Bibasilar atelectasis with pleural effusions. Acute Abdomen Series 03/20/18 00:00 IMPRESSION: Postop ileus. Retroperitoneal Abscess Drainage 03/20/18 00:00 IMPRESSION: Successful CT-guided placement of drainage catheter. Thoracentesis Ultrasound 03/23/18 12:00 IMPRESSION: Small volume right-sided thoracentesis utilizing ultrasound guidance as detailed above. Abdomen/Pelvis CT 03/27/18 00:00 IMPRESSION: SURGICAL CHANGES IN THE GALLBLADDER FOSSA WITH PERCUTANEOUS DRAIN AGE CATHETERS. NO SIGNIFICANT RESIDUAL FLUID COLLECTION. SMALL AMOUNT OF ASCITES. NO FOCAL FLUID COLLECTION CONCERNING FOR DEVELOPING ABSCESS. OTHER INCIDENTAL FINDINGS ABOVE. Head CT 03/27/18 10:08 IMPRESSION: NORMAL BRAIN CT WITHOUT CONTRAST. EVIDENCE OF ACUTE STROKE: NO. Chest CT 03/27/18 15:00 IMPRESSION: MODERATE BILATERAL PLEURAL EFFUSIONS WITH BASILAR ATELECTASIS/ CONSOLIDATION. OVERALL NO SIGNIFICANT CHANGE. Interventional Vascular Procedure 03/28/18 00:00 IMPRESSION: SUCCESSFUL PLACEMENT OF A 5 FR DUAL LUMEN 35 CM PICC IN THE LEFT BASILIC VEIN. PICC Line Insertion 03/28/18 00:00 IMPRESSION: SUCCESSFUL PLACEMENT OF A 5 FR DUAL LUMEN 35 CM PICC IN THE LEFT BASILIC VEIN. Chest X-Ray 03/31/18 00:00 IMPRESSION: Left basilar consolidation. Small right pleural effusion. No significant change. Assessment & Plan - Diagnosis (1) Acute respiratory failure with hypoxia Is this a current diagnosis for this admission?: Yes (3) Bile leak, postoperative Is this a current diagnosis for this admission?: Yes (4) Full code status Is this a current diagnosis for this admission?: Yes - Plan Summary Plan Summary: afeb vss feels well pt being discharged today by medicine will need f/u iwth me in surgery clinic in a week will then make referral to oncology.
[2018-04-04] MEDS: INSULIN REG, HUMAN 100 UNIT/ML 3 ML VIAL (PYX) SUBCUT SCH ×2 (09:24→11:56)
[2018-04-04] MEDS ORDERED: MULTIVIT-STRESS FORMULA/ZINC TABLET PO SCH (10:00)
[2018-04-04] MEDS ORDERED: FERROUS SULFATE 325 MG TABLET PO SCH (10:00)
[2018-04-04] MEDS: FUROSEMIDE 40 MG TABLET PO SCH (10:40)
[2018-04-04] MEDS: FAMOTIDINE 20 MG TABLET PO SCH (10:40)
[2018-04-04] MEDS: SENNOSIDES/DOCUSATE 8.6-50 MG 1 EACH TABLET PO SCH (10:40)
[2018-04-04] MEDS: FLUTICASONE/SALMETEROL DISKUS 250-50 MCG/DOSE IH SCH (10:41)
[2018-04-04] MEDS: FLUCONAZOLE 200 MG/NS RTU 200 MG/100 ML RTUPB IV SCH (10:41)
[2018-04-04] MEDS: LIDOCAINE 5% (700 MG) TRANSDERMAL ADH..PATCH TP SCH (10:41)
[2018-04-04] MEDS: TIOTROPIUM BROMIDE DPI 5 CAP/KIT (18 MCG/CAP) IH SCH (10:42)
[2018-04-04] MEDS: NORMAL SALINE 10 ML SDV (SCHEDULED) IV SCH (10:42)
[2018-04-04] MEDS: ONDANSETRON HCL INJ/PF 4 MG/2 ML SDV IV PRN (10:57)
[2018-04-04 15:21] VITALS: BP 131/61
--- NOTE | 2018-04-06 08:33 | HISTORY AND PHYSICAL E ---
History and Physical NAME: CARMEN RUSSO : 1955 AGE: 63Y ADMITTED: 03/06/2018 ROOM: 323 CHIEF COMPLAINT: The patient was admitted for an elective radical cholecystectomy with portal node dissection. HISTORY OF PRESENT ILLNESS: The patient is a 63-year-old female who underwent an elective laparoscopic cholecystectomy. At that time, she was noted to have a mass in her gallbladder. She came in initially with right upper quadrant pain and did have a strong family history of cholelithiasis that also was secondary to her gallbladder stones. She had a right upper quadrant sonogram, which showed gallstones. She was taken to the operating room by Dr. Yeung where she underwent an attempted laparoscopic cholecystectomy, at which time the mass was noted and therefore the procedure was abandoned. She was discharged home in preparation for today's admission, which consists of a radical cholecystectomy and a probable portal node dissection. She went to the operating room for this procedure and tolerated it well. She is being admitted postoperatively for continued care. PAST MEDICAL HISTORY: Significant for hypertension. She is on medications for that. She denies any history of coronary artery disease or myocardial infarction. PULMONARY MEDICAL HISTORY: She reports asthma, bronchitis, history of chronic obstructive pulmonary disease. She is on an inhaler and nebulizer and she had pneumonia in August of 2015. NEUROLOGICAL MEDICAL HISTORY: She reports seizures as a child, but currently on no meds. ENDOCRINE HISTORY: She reports diabetes type 2, which is borderline. MALIGNANCY HISTORY: She is only positive for gallbladder cancer. MUSCULOSKELETAL HISTORY: She denies any arthritis. HEMATOLOGIC HISTORY: She denies any anemia. PAST SURGICAL HISTORY: 1. The laparoscopic cholecystectomy 5 days prior to this admission. 2. She reports orthopedic history of left foot titanium plates placed. 3. She has had a tonsillectomy. 4. She denies hysterectomy. SOCIAL HISTORY: She is a former smoker. She has a history of smoking 1 pack per day for a number of years, approximately 40. Denies any history of significant alcohol use. Denies any drug use. No prescription drug abuse. ADVANCED DIRECTIVES: She is a FULL CODE. FAMILY HISTORY: Reviewed, not pertinent. PARENTAL FAMILY HISTORY: Reviewed. CHILDREN FAMILY HISTORY: Reviewed. SIBLING FAMILY HISTORY: Reviewed. CURRENT MEDICATIONS: 1. Albuterol sulfate 2.5 mg by inhaler q. 6 hours p.r.n. 2. Amlodipine 5 mg p.o. daily. 3. Symbicort inhaler HFA 160/4.5 mcg inhaler 2 puffs q. 12 hours. 4. Irbesartan/hydrochlorothiazide 300/12.5 mg tablet, 1 tablet daily. 5. Fenofibric acid 135 mg with dinner. 6. Occasional hydrocodone 10/325 1 p.o. q. 6 p.r.n. pain. 7. Metformin 500 mg p.o. b.i.d. 8. Tiotropium bromide (Spiriva) 2 puffs inhaled daily. ALLERGIES: She is allergic to PENICILLIN, CAUSES WHEEZES. REVIEW OF SYSTEMS: CONSTITUTIONAL: She has anorexia and weakness. CARDIOVASCULAR: She has no symptoms. No chest pain. No dyspnea on exertion. No edema. No orthopnea. No palpitations. GASTROINTESTINAL: She does have some abdominal pain. NEUROLOGIC: She has no complaints. ENDOCRINE: She has no cold or heat intolerance. No polydipsia. No polyuria. PHYSICAL EXAMINATION: VITAL SIGNS: Temperature is 98.4, pulse is 110, respirations 16, blood pressure 123/71, pulse ox is 93. GENERAL APPEARANCE: She has some mild distress secondary to right upper quadrant pain. HEAD: Atraumatic, normocephalic. EYES: Pupils equal, round, and reactive to light and accommodation. Extraocular movements intact. MOUTH: Moist tongue and moist mucosa. RESPIRATORY: Clear to auscultation bilaterally. Absent rales, rhonchi, or wheezes. CARDIOVASCULAR: Regular rate and rhythm. No murmurs. GASTROINTESTINAL: Mild tenderness in the right upper quadrant. RECTAL: Exam deferred. NEUROLOGIC: Awake, alert, oriented to person, place, oriented to time, oriented to situation. Cranial nerves II-XII grossly intact. IMPRESSION: Gallbladder cancer. PLAN: Radical cholecystectomy with portal lymph node dissection. She understands the risks and benefits of the procedure, including bleeding, infection, pulmonary embolism, stroke, myocardial infarction, . She understands the possibility of injury to adjacent organs, including the bile duct, bowel. She understands the possibility of hernia formation, infection, and the inability to remove all the cancer. These risks and benefits have been discussed with her and she agrees to proceed. DICTATING PHYSICIAN: MARLENI DESHPANDE M.D. [id number] PHY#: [id number] ID: [id number] JOB#: [id number] ACCT: [id number] cc:MARLENI DESHPANDE M.D. >
--- NOTE | 2018-04-12 10:55 | PDOC DISCHARGE SUMMARY ---
General - Admit/Disc Date/PCP Admission Date/Primary Care Provider: 03/06/18 06:35 JACKIE YEUNG MD Discharge Date: 04/04/18 - Discharge Diagnosis (1) Sepsis Is this a current diagnosis for this admission?: Yes Summary: Resolved. Leukocytosis has resolved, patient remains afebrile, no longer tachycardic, and with normal blood pressures. No evidence of PNA. Blood cultures (03/16/18, 03/20/18, 03/27/18) negative at 5 days Urinalysis negative; repeat is nml. Culture is negative Now s/p percutaneous drain placement. Peritoneal fluid C/S growing klebsiella pneumoniae, enterococcus faecalis, yeast. AFB and Fungal smears pending. Sputum culture shows yeast. Thoracic fluid AFB smear pending. Culture has no growth (final). Influenza A/B negative Infectious disease was consulted for antibiotic recommendations; he received full course of meropenem, vancomycin, and IV fluconazole. She received IV Cipro preoperatively before original ex lap; postoperatively received Ancef and Flagyl. Antibiotics were escalated to the above upon development of sepsis. (2) Acute respiratory failure with hypoxia Is this a current diagnosis for this admission?: Yes Summary: Acute exacerbation is resolved; now maintaining oxygen saturations on supplemental oxygen via nasal cannula during the day with BiPAP at night. Secondary to poor respiratory effort/splinting stemming from postoperative pain resulting in atelectasis and bilateral pleural effusions; complicated by sepsis and COPD. Bilateral pleural effusions on CTA.. Continue to be present on CXR and CT chest. ProBNP 659, echocardiogram is reassuring. LVEF 65%, normal diastolic function Right thoracentesis; only 20 mL out. Repeat Chest CT 03/27 shows moderate b/l pleural effusions, basically unchanged from previous imaging studies Influenza negative. She is discharged home with supplemental oxygen and BiPAP. They have a nebulizer machine at home; has been provided prescription for duo nebs. Continue home dose Advair. Continue to diuresis with p.o. lasix advised to discuss further weaning and discontinuing Lasix and K-Dur at follow-up appointment with PCP. Pulmonology was consulted; appreciate Dr. Booth's assistance. 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 PERC drain removed today by Surgery. Follow up with [facility] as scheduled 04/16/18. Follow up within Oncology (Dr. Tadeo) within 2-3 weeks. (4) Postoperative pain Is this a current diagnosis for this admission?: Yes Summary: Well controlled with current pain management regimen. Status post cholecystectomy and ERCP with JASKARAN. Percutaneous drain removed day of discharge. Postoperative pain may have contributed to her acute respiratory failure with hypoxia secondary to splinting. She is discharged home with prescriptions for Oxycodone and Lidoderm patches. May also utilize [id number] Tylenol for discomfort. (5) Anxiety Is this a current diagnosis for this admission?: Yes Summary: Patient has a PMH of anxiety Family reports the patient has been significantly anxious while inpatient; no previous history of anxiety. She is discharged home with prescriptions for BuSpar twice daily, Celexa, and as needed Ativan. Patient is encouraged to speak with her providers about continued difficulty with anxiety (6) Anemia Is this a current diagnosis for this admission?: Yes Summary: Multifactorial secondary to multiple surgical and invasive procedures and critical illness. Hemoglobin is now stable at 8.7. She did receive 3 units PRBC. Discharged home with prescription for ferrous sulfate and multivitamin supplementation. Recommend follow-up CBC during visit with primary care provider next week. (7) COPD (chronic obstructive pulmonary disease) Is this a current diagnosis for this admission?: Yes Summary: Chronic COPD related to previous tobacco dependence. Without exacerbation at time of discharge. While admitted, the patient did require intubation mechanical ventilation, scheduled and as needed nebulizer treatments. Steroid therapy was avoided s econdary to bacterial infection/sepsis. She is discharged home with supplemental oxygen and BiPAP machine. Resume home dose Advair. (8) Tobacco abuse Is this a current diagnosis for this admission?: Yes Summary: Smoking cessation is strongly encouraged; she is discharged home with prescription for NicoDerm patches. (9) Hypotension Is this a current diagnosis for this admission?: Yes Summary: Resolved; blood pressures are now stable. Secondary to sepsis; did require Junito-Synephrine for support. (10) Debility Is this a current diagnosis for this admission?: Yes Summary: She is now ambulatory short distances with frontwheel walker and assistance. Secondary to prolonged critical illness. She is discharged home with home health nursing, aide, physical therapy and occupational therapy. They have a walker at home. She is provided a bedside commode. (11) Full code status Is this a current diagnosis for this admission?: Yes - Additional Information Resuscitation Status: Full Code Discharge Diet: As Tolerated, Diabetic Discharge Activity: Activity As Tolerated, Balance Activity w/Rest, Slowly Increase Activity, Supervised Activity, Weigh Daily Prescriptions: Amlodipine Besylate [Norvasc 5 mg Tablet] 5 mg PO DAILY #30 tablet Benzonatate [Tessalon Perles 100 mg Capsule] 100 mg PO Q8HP PRN #30 capsule PRN Reason: Buspirone HCl [Buspar 10 mg Tablet] 10 mg PO Q12 #60 tablet Citalopram Hydrobromide [Celexa 20 mg Tablet] 10 mg PO QHS #20 tablet Famotidine [Pepcid 20 mg Tablet] 20 mg PO Q12 #60 tablet Fenofibric Acid (Choline) [Fenofibric Acid] 135 mg PO WSUPPER #90 capsule. Ferrous Sulfate [Feosol 325 mg Tablet] 325 mg PO DAILY #90 tablet Fluticasone/Salmeterol [Advair 250-50 Diskus 14 Dose/Diskus] 1 inh IH Q12 #1 inhaler Furosemide [Lasix 20 mg Tablet] 20 mg PO ASDIR PRN #45 tablet PRN Reason: Irbesartan/Hydrochlorothiazide [Avalide 300-12.5 mg Tablet] 1 each PO DAILY #30 tablet Lidocaine [Lidoderm 5% (700 mg) Transdermal Patch] 1 - 2 patch TP DAILY #30 adh..patch Lorazepam [Ativan 1 mg Tablet] 1 mg NG Q4HP PRN #20 tablet PRN Reason: Multivit-Stress Formula/Zinc [Zbec Tablet] 1 tab PO DAILY #90 tablet Nicotine [Nicoderm 7 mg/24 Hr Transdermal Patch] 1 each TD DAILYP PRN #30 patch.td24 PRN Reason: Oxycodone HCl/Acetaminophen [Percocet 5-325 mg Tablet] 1 tab NG Q4HP PRN #20 tablet PRN Reason: Potassium Chloride [Klor-Con M20] 40 meq PO DAILY #60 tab.er.prt Tiotropium [place] [Spiriva Respimat] 2 puff IH DAILY #1 mist.inhal Home Medications: Albuterol Sulfate [Albuterol Sulfate 2.5mg/3 mL] 2.5 mg IH Q6HP PRN 01/14/12 Metformin HCl [Metformin HCl ER] 500 mg PO BIDBS 03/06/18 Acetaminophen [Tylenol 325 mg Tablet] 650 mg PO Q4HP PRN tablet 04/04/18 Amlodipine Besylate [Norvasc 5 mg Tablet] 5 mg PO DAILY #30 tablet 04/04/18 Benzonatate [Tessalon Perles 100 mg Capsule] 100 mg PO Q8HP PRN #30 capsule 04/04/18 Buspirone HCl [Buspar 10 mg Tablet] 10 mg PO Q12 #60 tablet 04/04/18 Citalopram Hydrobromide [Celexa 20 mg Tablet] 10 mg PO QHS #20 tablet 04/04/18 Famotidine [Pepcid 20 mg Tablet] 20 mg PO Q12 #60 tablet 04/04/18 Fenofibric Acid (Choline) [Fenofibric Acid] 135 mg PO WSUPPER #90 capsule. 04/04/18 Ferrous Sulfate [Feosol 325 mg Tablet] 325 mg PO DAILY #90 tablet 04/04/18 Fluticasone/Salmeterol [Advair 250-50 Diskus 14 Dose/Diskus] 1 inh IH Q12 #1 inhaler 04/04/18 Furosemide [Lasix 20 mg Tablet] 20 mg PO ASDIR PRN #45 tablet 04/04/18 Irbesartan/Hydrochlorothiazide [Avalide 300-12.5 mg Tablet] 1 each PO DAILY #30 tablet 04/04/18 Lidocaine [Lidoderm 5% (700 mg) Transdermal Patch] 1 - 2 patch TP DAILY #30 adh..patch 04/04/18 Lorazepam [Ativan 1 mg Tablet] 1 mg NG Q4HP PRN #20 tablet 04/04/18 Multivit-Stress Formula/Zinc [Zbec Tablet] 1 tab PO DAILY #90 tablet 04/04/18 Nicotine [Nicoderm 7 mg/24 Hr Transdermal Patch] 1 each TD DAILYP PRN #30 patch.td24 04/04/18 Oxycodone HCl/Acetaminophen [Percocet 5-325 mg Tablet] 1 tab NG Q4HP PRN #20 tablet 04/04/18 Phenol/Sodium Phenolate [Chloraseptic Sore Throat [place] 177 ml] 2 spray PO PRN PRN bottle 04/04/18 Potassium Chloride [Klor-Con M20] 40 meq PO DAILY #60 tab.er.prt 04/04/18 Sennosides/Docusate 8.6-50 mg [Senna Plus Tablet] 2 each PO BID tablet 04/04/18 Tiotropium [place] [Spiriva Respimat] 2 puff IH DAILY #1 mist.inhal 04/04/18 History of Present Illness History of Present Illness: H&P per Dr. Michaud: The patient is a 63-year-old female who underwent an elective laparoscopic cholecystectomy. At that time, she was noted to have a mass in her gallbladder. She came in initially with right upper quadrant pain and did have a strong family history of cholelithiasis also with secondary to her gallbladder stones. She had a right upper quadrant sonogram, which showed gallstones. She was taken to the operating room by Dr. Yeung where she underwent an attempted laparoscopic cholecystectomy, at which time the mass was noted and therefore the procedure was abandoned. She was discharged home in preparation for today's admission, which consists of a radical cholecystectomy and a probable portal node dissection. She went to the operating room for this procedure and tolerated well. She is being admitted postoperatively for continued care. Hospital Course Hospital Course: The patient initially underwent an attempted laparoscopic cholecystectomy which had to be abandoned mid procedure due to finding of a mass as an outpatient procedure. Biopsy showed moderately differentiated adenocarcinoma. The patient was then admitted to the surgical service 03/06/18 for a radical cholecystectomy and portal node dissection; again confirming adenocarcinoma metastasizing to the omentum. A JASKARAN drain was inserted at that time; draining a significant amount of bile. She had a HIDA scan on 03/12/2018 showing bile leakage into the gallbladder fossa. She then underwent ERCP with sphincterotectomy and stent placement on 03/14/[address] Orta. Unfortunately, within 24 hours of the ERCP, the patient began developing signs of sepsis in the hospital service was consulted for medical management. The patient was upgraded to the ICU, placed on pressor support and required intubation/mechanical ventilation secondary to acute respiratory failure. CTA Chest ruled out PE; respiratory failure is secondary to sepsis, pleural effusions, and COPD exacerbation. She was intubated subsequently had to be intubated on 03/19/18 and successfully extubated 03/24/18 to BiPAP. A thoracentesis was completed 03/23/18 with only 20 cc of serous fluid removed from the right side using ultrasound guidance. Fortunately the pleural fluid Gram stain and culture was negative. The abdominal fluid cultures revealed Klebsiella pneumonia, enterococcus faecalis, and yeast. Urine cultures remained negative. And Serial blood cultures remained negative throughout her acute illness. Her sepsis was treated with IV Vancomycin, Meropenem, and IV difflucan. She received Neosynepherine, aggressive IV fluid resuscitation, Hespan, and IV albumin for pressure support and fluid mobilization (profound anasarca developed r/t septic shock). The patient was weaned off of pressor support, weaned off of BiPAP to powers pplemental oxygen via nasal cannula, and completed full course of antibiotic therapies while inpatient. She was downgraded to [facility] where she participated with physical therapy/Occupational Therapy and continued to improve. Surgical services were the attending providers; Hospitalist service, Pulmono logy, Gastroenterology, Oncology, and Infectious Disease were consulted. She was discharged to home in stable condition into the care of her family members on 04/04/18. Arrangements were made for the patient to receive home health nursing, aide, physical therapy, and occupational therapy. She was provided a bedside commode, BiPAP, and supplemental oxygen (continuous and portable). She is advised to follow-up with her primary care provider within 1 week. Keep her scheduled appointment with the [facility]. Recommend following up with oncology within 2-3 weeks. Return to the emergency department as needed for concerning symptoms. Physical Exam Vital Signs: Temp Pulse Resp BP Pulse Ox 99.4 F 99 20 131/61 H 99 04/04/18 15:19 04/04/18 15:19 04/04/18 15:19 04/04/18 15:19 04/04/18 15:19 Pulse Oximeter Nocturnal Start: 04/03/18 11:54 Freq: RTQ4 Status: Complete Protocol: Document 04/04/18 09:17 MARY JO (Rec: 04/04/18 09:18 MARY JO [id number]) Nocturnal Pulse Oximetry Equipment Usage Equipment Discontinued Continuous SpO2 Machine # 5 General appearance: PRESENT: no acute distress, cooperative, obese, well- developed, well-nourished, other - Chronically ill-appearing. Tremulous; chronic resting tremor Head exam: PRESENT: atraumatic, normocephalic Eye exam: PRESENT: conjunctiva pink, EOMI, PERRLA. ABSENT: scleral icterus Ear exam: PRESENT: normal external ear exam Mouth exam: PRESENT: moist, tongue midline Neck exam: ABSENT: carotid bruit, JVD, lymphadenopathy, thyromegaly Respiratory exam: PRESENT: clear to auscultation christian, decreased breath sounds - bibasilar; improved from yesterday., prolonged expiratory phas, symmetrical, unlabored, other - Supplemental oxygen via nasal cannula. ABSENT: rales, rhonchi, wheezes Cardiovascular exam: PRESENT: RRR, +S1, +S2. ABSENT: diastolic murmur, rubs, systolic murmur Pulses: PRESENT: normal dorsalis pedis pul Vascular exam: PRESENT: normal capillary refill GI/Abdominal exam: PRESENT: normal bowel sounds, soft. ABSENT: distended, guarding, mass, organolmegaly, rebound, tenderness Rectal exam: PRESENT: deferred Extremities exam: PRESENT: pedal edema - Trace. ABSENT: calf tenderness, clubbing Musculoskeletal exam: PRESENT: ambulatory - With front wheel walker and a ssistance Neurological exam: PRESENT: alert, awake, oriented to person, oriented to place, oriented to time, oriented to situation, CN II-XII grossly intact. ABSENT: motor sensory deficit Psychiatric exam: PRESENT: appropriate affect, normal mood. ABSENT: homicidal ideation, suicidal ideation Skin exam: PRESENT: dry, warm. ABSENT: cyanosis, intact - Surgical wounds to abdomen; wound edges are clean. PERC drain removed this morning., rash Results Laboratory Results: 04/04/18 03:50 04/04/18 03:50 03/16/18 03/18/18 03/18/18 05:06 04:45 19:10 CK-MB (CK-2) 1.10 Troponin I < 0.012 < 0.012 NT-Pro-B Natriuret Pep 513 03/18/18 03/20/18 19:50 12:05 CK-MB (CK-2) Troponin I NT-Pro-B Natriuret Pep 272 659 Impressions: KUB X-Ray 03/11/18 00:00 IMPRESSION: There are mildly dilated small bowel loops throughout the left abdomen, developing ileus or obstruction possible. Hepatobiliary Scan Nuclear Medicine 03/12/18 00:00 IMPRESSION: Bile leak in the gallbladder fossa. Catheter Placement 03/14/18 00:00 IMPRESSION: IMAGE(S) OBTAINED DURING PROCEDURE. Fluoroscopy 03/14/18 00:00 IMPRESSION: IMAGE(S) OBTAINED DURING PROCEDURE. Chest/Abdomen CTA 03/18/18 00:00 IMPRESSION: 1 . Status post cholecystectomy with pneumobilia. Upper abdominal ascites and pneumoperitoneum consistent with postsurgical change. 2. Bibasilar atelectasis with pleural effusions. Acute Abdomen Series 03/20/18 00:00 IMPRESSION: Postop ileus. Retroperitoneal Abscess Drainage 03/20/18 00:00 IMPRESSION: Successful CT-guided placement of drainage catheter. Thoracentesis Ultrasound 03/23/18 12:00 IMPRESSION: Small volume right-sided thoracentesis utilizing ultrasound guidance as detailed above. Abdomen/Pelvis CT 03/27/18 00:00 IMPRESSION: SURGICAL CHANGES IN THE GALLBLADDER FOSSA WITH PERCUTANEOUS DRAINAGE CATHETERS. NO SIGNIFICANT RESIDUAL FLUID COLLECTION. SMALL AMOUNT OF ASCITES. NO FOCAL FLUID COLLECTION CONCERNING FOR DEVELOPING ABSCESS. OTHER INCIDENTAL FINDINGS ABOVE. Head CT 03/27/18 10:08 IMPRESSION: NORMAL BRAIN CT WITHOUT CONTRAST. EVIDENCE OF ACUTE STROKE: NO. Chest CT 03/27/18 15:00 IMPRESSION: MODERATE BILATERAL PLEURAL EFFUSIONS WITH BASILAR ATELECTASIS/ CONSOLIDATION. OVERALL NO SIGNIFICANT CHANGE. Interventional Vascular Procedure 03/28/18 00:00 IMPRESSION: SUCCESSFUL PLACEMENT OF A 5 FR DUAL LUMEN 35 CM PICC IN THE LEFT BASILIC VEIN. PICC Line Insertion 03/28/18 00:00 IMPRESSION: SUCCESSFUL PLACEMENT OF A 5 FR DUAL LUMEN 35 CM PICC IN THE LEFT BASILIC VEIN. Chest X-Ray 03/31/18 00:00 IMPRESSION: Left basilar consolidation. Small right pleural effusion. No significant change. Qualifiers - * PATIENT BEING DISCHARGED WITH ANY OF THE FOLLOWING DIAGNOSIS: No Plan Discharge Plan: The patient is discharged to home in the care of family members with home health nursing and physical therapy. She will follow-up with her primary care provider on 04/10/18. Recommend follow-up BMP at that visit with primary care provider; may continue to wean potassium and Lasix as indicated. She will follow-up with Dr. Yeung, surgery, on 04/16/18. She is advised to follow-up with Dr. Tadeo, oncology, within 2-3 weeks. Return to the emergency department immediately for any concerning symptoms. Time Spent: Greater than 30 Minutes
== END 2018-04-04 16:15 | disposition home health service (06) | DRG 405 ==
LOC: INOR 06:35 → EDSTATUS 08:45 → 4S 15:35 → 3S 03-18 18:55 → ICU 03-18 19:51 → 3W 03-30 10:25
PROVIDERS: ADMIT Surgery; ATTEND Surgery
PROC: 0FB10ZZ Excision of Right Lobe Liver, Open Approach (ICD-10-PCS; 2018-03-06)
PROC: 07BB0ZX Excision of Mesenteric Lymphatic, Open Approach, Diagnostic (ICD-10-PCS; 2018-03-06)
PROC: 3E0F73Z Introduction of Anti-inflammatory into Respiratory Tract, Via Natural or Artificial Opening (ICD-10-PCS; 2018-03-06)
PROC: 0FT40ZZ Resection of Gallbladder, Open Approach (ICD-10-PCS; principal; 2018-03-06 08:45)
PROC: 0F798DZ Dilation of Common Bile Duct with Intraluminal Device, Via Natural or Artificial Opening Endoscopic (ICD-10-PCS; 2018-03-14)
PROC: 3E0F73Z Introduction of Anti-inflammatory into Respiratory Tract, Via Natural or Artificial Opening (ICD-10-PCS; 2018-03-16)
PROC: 5A1955Z Respiratory Ventilation, Greater than 96 Consecutive Hours (ICD-10-PCS; 2018-03-18)
PROC: 0BH17EZ Insertion of Endotracheal Airway into Trachea, Via Natural or Artificial Opening (ICD-10-PCS; 2018-03-18)
PROC: 02HV33Z Insertion of Infusion Device into Superior Vena Cava, Percutaneous Approach (ICD-10-PCS; 2018-03-18)
PROC: B5181ZA Fluoroscopy of Superior Vena Cava using Low Osmolar Contrast, Guidance (ICD-10-PCS; 2018-03-18)
PROC: B548ZZA Ultrasonography of Superior Vena Cava, Guidance (ICD-10-PCS; 2018-03-18)
PROC: 5A09357 Assistance with Respiratory Ventilation, Less than 24 Consecutive Hours, Continuous Positive Airway Pressure (ICD-10-PCS; 2018-03-18)
PROC: 0W9F30Z Drainage of Abdominal Wall with Drainage Device, Percutaneous Approach (ICD-10-PCS; 2018-03-20)
PROC: 3E0436Z Introduction of Nutritional Substance into Central Vein, Percutaneous Approach (ICD-10-PCS; 2018-03-20)
PROC: 30233N1 Transfusion of Nonautologous Red Blood Cells into Peripheral Vein, Percutaneous Approach (ICD-10-PCS; 2018-03-22)
PROC: 0W993ZZ Drainage of Right Pleural Cavity, Percutaneous Approach (ICD-10-PCS; 2018-03-23)
PROC: 5A09557 Assistance with Respiratory Ventilation, Greater than 96 Consecutive Hours, Continuous Positive Airway Pressure (ICD-10-PCS; 2018-03-24)
PROC: 30233N1 Transfusion of Nonautologous Red Blood Cells into Peripheral Vein, Percutaneous Approach (ICD-10-PCS; 2018-03-26)
PROC: 30233N1 Transfusion of Nonautologous Red Blood Cells into Peripheral Vein, Percutaneous Approach (ICD-10-PCS; 2018-03-29)
DX: C23 Malignant neoplasm of gallbladder (principal); J96.01 Acute respiratory failure with hypoxia; K65.8 Other peritonitis; C78.6 Secondary malignant neoplasm of retroperitoneum and peritoneum; K91.89 Other postprocedural complications and disorders of digestive system; T81.44XA Sepsis following a procedure, initial encounter; K56.7 Ileus, unspecified; J90 Pleural effusion, not elsewhere classified; I10 Essential (primary) hypertension; J44.9 Chronic obstructive pulmonary disease, unspecified; E11.9 Type 2 diabetes mellitus without complications; D63.8 Anemia in other chronic diseases classified elsewhere; F41.9 Anxiety disorder, unspecified; G89.18 Other acute postprocedural pain; B96.1 Klebsiella pneumoniae [K. pneumoniae] as the cause of diseases classified elsewhere; E86.0 Dehydration; B95.2 Enterococcus as the cause of diseases classified elsewhere; E66.01 Morbid (severe) obesity due to excess calories; Z90.49 Acquired absence of other specified parts of digestive tract; Z87.891 Personal history of nicotine dependence; Z79.899 Other long term (current) drug therapy; Z79.891 Long term (current) use of opiate analgesic; Z79.84 Long term (current) use of oral hypoglycemic drugs; Z88.0 Allergy status to penicillin; Z78.1 Physical restraint status; Z83.6 Family history of other diseases of the respiratory system; Z82.49 Family history of ischemic heart disease and other diseases of the circulatory system
CPT/HCPCS: 00732; 00790; 31500; 32555; 36415; 36430; 36569; 36600; 43262; 43264; 43274; 49406; 70450; 71045; 71250; 71275; 74018; 74022; 74176; 74328; 76937; 78226; 80048; 80053; 80076; 80202; 81001; 82140; 82150; 82272; 82553; 82607; 82728; 82746; 82803; 82945; 82947; 82962; 83540; 83550; 83605; 83615; 83690; 83735; 83880; 84100; 84132; 84134; 84155; 84157; 84478; 84484; 85025; 85027; 85045; 85379; 85610; 85730; 86850; 86900; 86901; 86920; 87015; 87040; 87070; 87075; 87077; 87086; 87101; 87116; 87186; 87205; 87206; 87804; 88305; 88307; 88331; 88332; 88341; 88342; 89050; 93005; 93010; 93306; 94002; 94003; 94640; 94660; 94667; 94762; 94799; A9537; C1729; C1751; C1894; C2617; C9250; J0131; J0330; J0690; J0744; J1100; J1170; J1450; J1610; J1642; J1644; J1720; J1815; J1885; J1940; J2060; J2185; J2250; J2270; J2370; J2405; J2704; J2765; J3010; J3370; J3475; J3480; J3490; J7030; J7040; J7050; J7060; J7120; J7614; J7620; P9016; P9047; Q9969; S0028

== ENCOUNTER → 2018-04-17 | Outpatient (CLI) | payer BC, OTHER ==
[2018-04-17 15:43] LABS: ABSOLUTE BASOPHILS # (AUTO) 0.2 10^3/uL (0.0-0.2); ABSOLUTE EOSINOPHILS # (AUTO) 0.7 10^3/uL (0.0-0.6); ABSOLUTE LYMPHOCYTES (AUTO) 3.3 10^3/uL (0.5-4.7); ABSOLUTE NEUT (AUTO) 9.2 10^3/uL (1.7-8.2); BASOPHILS % (AUTO) 1.3 % (0-2); HEMATOCRIT 35.1 % (36.0-47.0); HEMOGLOBIN 11.6 g/dL (12.0-15.5); LYMPHOCYTES % (AUTO) 23.3 % (13-45); MEAN CORPUSCULAR HEMOGLOBIN 27.3 pg (27.0-33.4); MEAN CORPUSCULAR HGB CONC 33.1 g/dL (32.0-36.0); MEAN CORPUSCULAR VOLUME 82 fl (80-97); MONOCYTES % (AUTO) 6.6 % (3-13); PLATELET COUNT 392 10^3/uL (150-450); RED BLOOD COUNT 4.27 10^6/uL (3.72-5.28); RED CELL DISTRIBUTION WIDTH 16.1 % (11.5-14.0); SEGMENTED NEUTROPHILS % (AUTO) 63.8 % (42-78); TOTAL CELLS COUNTED % (AUTO) 100 %; WHITE BLOOD COUNT 14.4 10^3/uL (4.0-10.5)
[2018-04-17 16:57] LABS: ALANINE AMINOTRANSFERASE 44 U/L (9-52); ALBUMIN 4.3 g/dL (3.5-5.0); ALKALINE PHOSPHATASE 162 U/L (38-126); ANION GAP 13 (5-19); ASPARTATE AMINO TRANSFERASE 36 U/L (14-36); BILIRUBIN,DIRECT 0.4 mg/dL (0.0-0.4); BILIRUBIN,TOTAL 0.6 mg/dL (0.2-1.3); BLOOD UREA NITROGEN 16 mg/dL (7-20); CALCIUM 10.6 mg/dL (8.4-10.2); CARBON DIOXIDE 24 mmol/L (22-30); CHLORIDE 100 mmol/L (98-107); GLUCOSE 126 mg/dL (75-110); POTASSIUM 4.6 mmol/L (3.6-5.0); SODIUM 136.6 mmol/L (137-145); TOTAL PROTEIN 7.7 g/dL (6.3-8.2)
== END ==
LOC: LAB 15:26
PROVIDERS: ATTEND Internal Medicine Gastroenterology
DX: R10.9 Unspecified abdominal pain (principal); R11.11 Vomiting without nausea
CPT/HCPCS: 36415; 80048; 80076; 85025

== ENCOUNTER 2018-04-18 21:05 | Observation (INO) | payer BC, OTHER ==
[2018-04-18] MEDS ORDERED: ONDANSETRON HCL INJ/PF 4 MG/2 ML SDV IV ONE (22:43)
--- NOTE | 2018-04-18 22:46 | ER Document Report ---
ED Medical Screen (RME) - General Chief Complaint: Nausea Stated Complaint: NAUSEA/DRY HEAVING Time Seen by Provider: 04/18/18 22:43 Primary Care Provider: MARY MAC MD [Primary Care Provider] - Follow up as needed Notes: Patient is a 63-year-old female who presents emergency department with constant nausea and dry heaving. She states that she has had these symptoms on and off for the past few weeks and has progressively gotten worse. She was seen by Dr. Karri mccoy today yesterday and labs were drawn. She states that she did have a bowel movement today but it was hard. She also took some Zofran at 1600 this afternoon and continue to vomit. She has history of gallbladder CA and it was removed along with a part of her liver. TRAVEL OUTSIDE OF THE [place] IN LAST 30 DAYS: No - Related Data Allergies/Adverse Reactions: Penicillins Adverse Reaction (Severe, Verified 03/22/18 15:15) WHEEZE Past Medical History - Social History Frequency of alcohol use: None Drug Abuse: None Family history: Reviewed & Not Pertinent - Past Medical History Cardiac Medical History: Reports: Hx Hypertension - ON MEDS Denies: Hx Coronary Artery Disease, Hx Heart Attack Pulmonary Medical History: Reports: Hx Asthma, Hx Bronchitis - HX OF , Hx COPD - INHALER, NEBULIZER, Hx Pneumonia - 08/21 Neurological Medical History: Reports: Hx Seizures - A CHILD X 1, NO MEDS. Denies: Hx Cerebrovascular Accident Endocrine Medical History: Reports: Hx Diabetes Mellitus Type 2 - borderline Renal/ Medical History: Denies: Hx Peritoneal Dialysis Musculoskeltal Medical History: Denies Hx Arthritis Past Surgical History: Reports: Hx Orthopedic Surgery - left foot/ titanium plates placed, Hx Tonsillectomy, Other - Radical cholecystectomy, liver resectio n, periportal lymphadenectomy. Denies: Hx Hysterectomy - Immunizations Hx Diphtheria, Pertussis, Tetanus Vaccination: No History of Influenza Vaccine for 11/2016 - 04/2017 Season: Yes Influenza Administration Date for 11/2016 - 04/2017 Season: 11/06/17 Physical Exam - Vital signs Vitals: Temp Pulse Resp BP Pulse Ox 98.4 F 103 H 18 118/66 98 04/18/18 21:27 04/18/18 21:27 04/18/18 21:27 04/18/18 21:27 04/18/18 21:27 Course - Vital Signs Vital signs: Temp Pulse Resp BP Pulse Ox 98.4 F 103 H 18 118/66 98 04/18/18 21:27 04/18/18 21:27 04/18/18 21:27 04/18/18 21:27 04/18/18 21:27 - Laboratory Result Diagrams: 04/19/18 01:25 04/19/18 01:25 Laboratory results interpreted by me: 04/19/18 04/19/18 04/19/18 01:25 01:25 01:25 WBC 13.1 H Hgb 11.5 L Hct 34.6 L RDW 16.0 H Absolute Eosinophils 0.8 H Sodium 135.8 L Chloride 95 L Calcium 10.8 H Direct Bilirubin 0.6 H AST 47 H Alkaline Phosphatase 184 H Urine Blood SMALL H Ur Leukocyte Esterase LARGE H Doctor's Discharge - Discharge Referrals: MARY MAC MD [Primary Care Provider] - Follow up as needed
[2018-04-19] MEDS ORDERED: ONDANSETRON 4 MG TAB.RAPDIS PO ONE (01:16)
[2018-04-19 01:50] LABS: APPEARANCE,URINE SLIGHTLY-CLOUDY; BILIRUBIN,URINE NEGATIVE (NEGATIVE); COLOR,URINE YELLOW; GLUCOSE, URINE NEGATIVE (NEGATIVE); KETONES,URINE NEGATIVE (NEGATIVE); LEUKOCYTE ESTERASE,URINE LARGE (NEGATIVE); NITRITE,URINE NEGATIVE (NEGATIVE); PROTEIN,URINE NEGATIVE (NEGATIVE); URINE SPECIFIC GRAVITY 1.009; UROBILINOGEN,URINE NEGATIVE mg/dL (<2.0)
[2018-04-19 01:51] LABS: ABSOLUTE BASOPHILS # (AUTO) 0.1 10^3/uL (0.0-0.2); ABSOLUTE EOSINOPHILS # (AUTO) 0.8 10^3/uL (0.0-0.6); ABSOLUTE LYMPHOCYTES (AUTO) 3.7 10^3/uL (0.5-4.7); ABSOLUTE MONOCYTES (AUTO) 0.9 10^3/uL (0.1-1.4); ABSOLUTE NEUT (AUTO) 7.6 10^3/uL (1.7-8.2); BASOPHILS % (AUTO) 0.9 % (0-2); HEMATOCRIT 34.6 % (36.0-47.0); HEMOGLOBIN 11.5 g/dL (12.0-15.5); LYMPHOCYTES % (AUTO) 28.2 % (13-45); MEAN CORPUSCULAR HEMOGLOBIN 27.5 pg (27.0-33.4); MEAN CORPUSCULAR HGB CONC 33.2 g/dL (32.0-36.0); MEAN CORPUSCULAR VOLUME 83 fl (80-97); MONOCYTES % (AUTO) 7.2 % (3-13); PLATELET COUNT 386 10^3/uL (150-450); RED BLOOD COUNT 4.18 10^6/uL (3.72-5.28); SEGMENTED NEUTROPHILS % (AUTO) 57.7 % (42-78); TOTAL CELLS COUNTED % (AUTO) 100 %; WHITE BLOOD COUNT 13.1 10^3/uL (4.0-10.5)
[2018-04-19 02:08] LABS: ALANINE AMINOTRANSFERASE 48 U/L (9-52); ALBUMIN 4.4 g/dL (3.5-5.0); ALKALINE PHOSPHATASE 184 U/L (38-126); ANION GAP 14 (5-19); ASPARTATE AMINO TRANSFERASE 47 U/L (14-36); BILIRUBIN,DIRECT 0.6 mg/dL (0.0-0.4); BILIRUBIN,TOTAL 0.7 mg/dL (0.2-1.3); BLOOD UREA NITROGEN 18 mg/dL (7-20); CALCIUM 10.8 mg/dL (8.4-10.2); CARBON DIOXIDE 27 mmol/L (22-30); CHLORIDE 95 mmol/L (98-107); GLUCOSE 105 mg/dL (75-110); LIPASE 147.8 U/L (23-300); POTASSIUM 4.6 mmol/L (3.6-5.0); SODIUM 135.8 mmol/L (137-145); TOTAL PROTEIN 7.8 g/dL (6.3-8.2)
--- NOTE | 2018-04-19 03:42 | RADIOLOGY REPORT (SQ) ---
EXAM DESCRIPTION: CT ABDOMEN PELVIS WITH IV CONTRAST COMPLETED DATE/TME: 04/19/2018 00:00 CLINICAL HISTORY: 63 years, Female, vomiting, CREAT 0.81 COMPARISON: 03/27/2018, 03/05/2018 TECHNIQUE: Axial CT images of the abdomen and pelvis were obtained after administration of IV contrast. Sagittal and coronal reformats were performed. [facility] 1486 Images stored on PACS. All CT scanners at this facility use dose modulation, iterative reconstruction, and/or weight based dosing when appropriate to reduce radiation dose to as low as reasonably achievable (ALARA). [facility]: Dose Right [facility]: CareDose [facility]: Dose Right [facility]: Teradose 4D [facility]: Smart Bloompop LIMITATIONS: None. FINDINGS: There is a small left pleural effusion. A 3.9 x 2.4 cm hypodensity has developed within the right hepatic lobe adjacent to the gallbladder fossa. Cholecystectomy. The pancreas, spleen, and adrenal glands are unremarkable. There is no evidence of hydronephrosis or hydroureter bilaterally. There are mild atherosclerotic calcifications of the abdominal aorta. There is no intraperitoneal free air or free fluid. There is no lymphadenopathy. There is a 5.2 x 1.8 cm peripherally enhancing hypodense collection anterior to the stomach (axial image 31). There is persistent inflammation and stranding along the upper abdomen. The small bowel appears grossly unremarkable. Appendectomy. The colon contains a moderate amount of stool. The uterus and urinary bladder appear unremarkable. Posterior to the uterus is a 4.2 x 1.7 cm oval shaped hypodensity (axial image 77). There are no lytic or blastic bone lesions. IMPRESSION: Interval development of abscesses within the right hepatic lobe and anterior to the stomach. Tubular hypodense collection posterior to the uterus also likely represents an additional abscess rather than small bowel or a dilated fallopian tube. Persistent inflammation and stranding along the upper abdomen. Small left pleural effusion. TECHNICAL DOCUMENTATION: Quality ID # [id number]: Final reports with documentation of one or more dose reduction techniques (e.g., Automated exposure control, adjustment of the mA and/or kV according to patient size, use of iterative reconstruction technique) copyright 2010 [employer]- All Rights Reserved
[2018-04-19] MEDS ORDERED: NORMAL SALINE 1000 ML 1,000 ML IV ONE (04:17)
--- NOTE | 2018-04-19 04:28 | ER Document Report ---
ED General - General Chief Complaint: Nausea Stated Complaint: NAUSEA/DRY HEAVING Time Seen by Provider: 04/18/18 22:43 Primary Care Provider: MARY ORTA MD [Primary Care Provider] - Follow up as needed Notes: Patient is a 63-year-old female who presents emergency department with constant nausea and dry heaving. Has had some vomiting, but no hematemesis noted. She states that she has had these symptoms on and off for the past few weeks and has progressively gotten worse. She was seen by Dr. Orta today yesterday and labs were drawn. She states that she did have a bowel movement today but it was hard. She also took some Zofran at 1600 this afternoon and continue to vomit. She has history of gallbladder CA and it was removed along with a part of her liver. She states that she has had an on and off low-grade fever. She has not started chemo therapy. TRAVEL OUTSIDE OF THE [place] IN LAST 30 DAYS: No - Related Data Allergies/Adverse Reactions: Penicillins Adverse Reaction (Severe, Verified 03/22/18 15:15) WHEEZE Past Medical History - Social History Smoking Status: Former Smoker Frequency of alcohol use: None Drug Abuse: None Family History: Reviewed & Not Pertinent Patient has suicidal ideation: No Patient has homicidal ideation: No - Past Medical History Cardiac Medical History: Reports: Hx Hypertension - ON MEDS Denies: Hx Coronary Artery Disease, Hx Heart Attack Pulmonary Medical History: Reports: Hx Asthma, Hx Bronchitis - HX OF , Hx COPD - INHALER, NEBULIZER, Hx Pneumonia - 08/21 Neurological Medical History: Reports: Hx Seizures - A CHILD X 1, NO MEDS. Denies: Hx Cerebrovascular Accident Endocrine Medical History: Reports: Hx Diabetes Mellitus Type 2 - borderline Renal/ Medical History: Denies: Hx Peritoneal Dialysis Musculoskeletal Medical History: Denies Hx Arthritis Past Surgical History: Reports: Hx Orthopedic Surgery - left foot/ titanium plates placed, Hx Tonsillectomy, Other - Radical cholecystectomy, liver rese ction, periportal lymphadenectomy. Denies: Hx Hysterectomy - Immunizations Hx Diphtheria, Pertussis, Tetanus Vaccination: No Hx Pneumococcal Vaccination: 11/16/10 Review of Systems - Review of Systems Notes: REVIEW OF SYSTEMS: CONSTITUTIONAL : Denies recent illness. Denies recent unintentional weight loss. Denies fever, chills, or sweats. EENT: Denies eye, ear, throat, or mouth pain, discharge, or symptoms. Denies nasal or sinus congestion. CARDIOVASCULAR: Denies chest pain. RESPIRATORY: Denies shortness of breath, cough, congestion, difficulty breath ing, or wheezing. GASTROINTESTINAL: See HPI GENITOURINARY: Denies difficulty urinating, burning, blood in urine, urgency or frequency. MUSCULOSKELETAL: Denies neck and back pain. Denies joint pain or swelling. SKIN: Denies rash, itchiness, or lesions HEMATOLOGIC : Denies easy bruising or bleeding. LYMPHATIC: Denies swollen, painful, enlarged glands. NEUROLOGICAL: Denies no numbness or tingling denies weakness. Denies headache. Denies altered mental status. Denies alteration in speech. PSYCHIATRIC: Denies stress, anxiety, alteration in sleep patterns, or depression. All other systems reviewed and negative. Physical Exam - Vital signs Vitals: Temp Pulse Resp BP Pulse Ox 98.4 F 103 H 18 118/66 98 04/18/18 21:27 04/18/18 21:27 04/18/18 21:27 04/18/18 21:27 04/18/18 21:27 - Notes Notes: PHYSICAL EXAMINATION: GENERAL: Appears well, healthy, well-nourished, no acute distress. HEAD: Normocephalic, atraumatic. EYES: PERRL, conjunctiva normal, all extraocular movements intact, sclera nonicteric ENT: Moist mucous membranes. NECK: Supple, no noticeable swelling, redness, rash. Normal range of motion. LUNGS: Equal breath sounds bilaterally and clear to auscultation. No wheezes rales or rhonchi. CARDIOVASCULAR: S1-S2, regular rate, regular rhythm. Radial pulses 2+, normal. ABDOMEN: Normoactive bowel sounds. Soft, generalized tenderness. EXTREMITIES: Normal strength and range of motion, no pitting or edema. No cyanosis. NEUROLOGICAL: Moves all extremities upon command. Strength 5/5 in all extremities. PSYCH: Normal mood, normal affect. SKIN: Warm, dry. No rash, lesions, ulcerations noted. Normal skin turgor. Course - Re-evaluation Re-evalutation: 04/19/18 04:26 The patient has a leukocytosis of 13,100. She also has multiple abscesses noted on her CT of the abdomen. There is a 5.2 x 1.8 cm abscess noted and a to the anterior stomach along with a 4.2 x 1.7 cm abscess noted behind her uterus. She also has some abscesses noted to the right hepatic lobe. I will call Dr. Yeung to notify him about the CT findings. 04/19/18 04:[address] Yeung and the patient will be admitted to the surgical service. - Vital Signs Vital signs: Temp Pulse Resp BP Pulse Ox 98.4 F 103 H 18 118/66 98 04/18/18 21:27 04/18/18 21:27 04/18/18 21:27 04/18/18 21:27 04/18/18 21:27 - Laboratory Result Diagrams: 04/19/18 01:25 04/19/18 01:25 Laboratory results interpreted by me: 04/19/18 04/19/18 04/19/18 01:25 01:25 01:25 WBC 13.1 H Hgb 11.5 L Hct 34.6 L RDW 16.0 H Absolute Eosinophils 0.8 H Sodium 135.8 L Chloride 95 L Calcium 10.8 H Direct Bilirubin 0.6 H AST 47 H Alkaline Phosphatase 184 H Urine Blood SMALL H Ur Leukocyte Esterase LARGE H Discharge - Discharge Clinical Impression: Abdominal abscess, Gallbladder cancer Leukocytosis Qualifiers: Leukocytosis type: other Qualified Code(s): D72.828 - Other elevated white blood cell count Condition: Fair Disposition: ADMITTED INPATIENT Admitting Provider: Surgicalist Referrals: MARY ORTA MD [Primary Care Provider] - Follow up as needed
[2018-04-19] MEDS ORDERED: MEROPENEM 1 GM VIAL IV ONE (04:29)
[2018-04-19] MEDS ORDERED: POTASSI CL 10 MEQ/D5-1/2NS 1L 10 MEQ/1,000 ML RTUINJ IV PRN (04:33)
[2018-04-19] MEDS ORDERED: MORPHINE SULFATE 10 MG/ML INJ IV PRN (04:33)
[2018-04-19] MEDS ORDERED: PHENOL/SODIUM PHENOLATE 100 SPRAY/177 ML BOTTLE PO PRN (04:41)
[2018-04-19] MEDS ORDERED: LORAZEPAM 1 MG TABLET NG PRN (04:41)
[2018-04-19] MEDS ORDERED: OXYCODONE-ACETAMINOPHEN 5-325 MG TABLET NG PRN (04:41)
[2018-04-19] MEDS ORDERED: MEROPENEM 1 GM VIAL IV PRN (04:57)
[2018-04-19] MEDS: MEROPENEM 1 GM in NORMAL SALINE 50 ML IV SCH ×3 (06:01→22:13)
--- NOTE | 2018-04-19 06:10 | RADIOLOGY REPORT (SQ) ---
EXAM DESCRIPTION: XR CHEST 2 VIEWS COMPLETED DATE/TME: 04/19/2018 00:00 CLINICAL HISTORY: 63 years, Female, fevers, chest pain COMPARISON: 03/31/2018 NUMBER OF VIEWS: Two TECHNIQUE: Two views of the chest LIMITATIONS: None. FINDINGS: There is a left basilar airspace opacity with small left pleural effusion. The heart is normal in size. There is no pneumothorax. The bones are unchanged. IMPRESSION: Left basilar airspace opacity with small left pleural effusion copyright 2010 [employer]- All Rights Reserved
[2018-04-19] MEDS: ALBUTEROL SULFATE 0.083% NEB 2.5 MG/3 ML AMPUL NEB PRN ×2 (06:28→21:43)
--- NOTE | 2018-04-19 06:43 | PDOC H&P ---
History of Present Illness Admission Date/PCP: 04/19/18 05:04 MARY MAC MD Patient complains of: Fatigue, malaise, abdominal pain, nausea, vomiting History of Present Illness: CARMEN RUSSO is a 63 year old female recently status post a long hospital stay for radical cholecystectomy due to gallbladder cancer. Patient reports increasing amounts of nausea and vomiting at home over the last 2 weeks. She has been taking Zofran to control her nausea, but it does not appear to be helping. She reports low-grade fevers of 99.5. She reports generalized malaise and fatigue. She denies chest pain, headache, blurry vision, orthostasis, melena, hematochezia, hematemesis. She does report shortness of breath (similar to baseline), fevers, chills, fatigue, malaise, abdominal pain, nausea, vomiting, constipation, and dysuria. Past Medical History Cardiac Medical History: Reports: Hypertension - ON MEDS Denies: Coronary Artery Disease, Myocardial Infarction Pulmonary Medical History: Reports: Asthma, Bronchitis - HX OF , Chronic Obstructive Pulmonary Disease (COPD) - INHALER, NEBULIZER, Pneumonia - 08/21 Neurological Medical History: Reports: Seizures - A CHILD X 1, NO MEDS Endocrine Medical History: Reports: Diabetes Mellitus Type 2 - borderline Musculoskeltal Medical History: Denies: Arthritis Hematology: Denies: Anemia Past Surgical History Past Surgical History: Reports: Orthopedic Surgery - left foot/ titanium plates placed, Tonsillectomy, Other - Radical cholecystectomy, liver resection, periportal lymphadenectomy Denies: Hysterectomy Social History Smoking Status: Former Smoker Frequency of Alcohol Use: None Drugs: None Hx Prescription Drug Abuse: No Family History Family History: Reviewed & Not Pertinent Parental Family History Reviewed: Yes Children Family History Reviewed: Yes Sibling(s) Family History Reviewed.: Yes Medication/Allergy Home Medications: Albuterol Sulfate [Albuterol Sulfate 2.5mg/3 mL] 2.5 mg IH Q6HP PRN 01/14/12 Metformin HCl [Metformin HCl ER] 500 mg PO BIDBS 03/06/18 Acetaminophen [Tylenol 325 mg Tablet] 650 mg PO Q4HP PRN tablet 04/04/18 Amlodipine Besylate [Norvasc 5 mg Tablet] 5 mg PO DAILY #30 tablet 04/04/18 Benzonatate [Tessalon Perles 100 mg Capsule] 100 mg PO Q8HP PRN #30 capsule 04/04/18 Buspirone HCl [Buspar 10 mg Tablet] 10 mg PO Q12 #60 tablet 04/04/18 Citalopram Hydrobromide [Celexa 20 mg Tablet] 10 mg PO QHS #20 tablet 04/04/18 Famotidine [Pepcid 20 mg Tablet] 20 mg PO Q12 #60 tablet 04/04/18 Fenofibric Acid (Choline) [Fenofibric Acid] 135 mg PO WSUPPER #90 capsule.dr 04/04/18 Ferrous Sulfate [Feosol 325 mg Tablet] 325 mg PO DAILY #90 tablet 04/04/18 Fluticasone/Salmeterol [Advair 250-50 Diskus 14 Dose/Diskus] 1 inh IH Q12 #1 inhaler 04/04/18 Furosemide [Lasix 20 mg Tablet] 20 mg PO ASDIR PRN #45 tablet 04/04/18 Irbesartan/Hydrochlorothiazide [Avalide 300-12.5 mg Tablet] 1 each PO DAILY #30 tablet 04/04/18 Lidocaine [Lidoderm 5% (700 mg) Transdermal Patch] 1 - 2 patch TP DAILY #30 adh..patch 04/04/18 Lorazepam [Ativan 1 mg Tablet] 1 mg NG Q4HP PRN #20 tablet 04/04/18 Multivit-Stress Formula/Zinc [Zbec Tablet] 1 tab PO DAILY #90 tablet 04/04/18 Nicotine [Nicoderm 7 mg/24 Hr Transdermal Patch] 1 each TD DAILYP PRN #30 patch.td24 04/04/18 Oxycodone HCl/Acetaminophen [Percocet 5-325 mg Tablet] 1 tab NG Q4HP PRN #20 tablet 04/04/18 Phenol/Sodium Phenolate [Chloraseptic Sore Throat [place] 177 ml] 2 spray PO PRN PRN bottle 04/04/18 Potassium Chloride [Klor-Con M20] 40 meq PO DAILY #60 tab.er.prt 04/04/18 Sennosides/Docusate 8.6-50 mg [Senna Plus Tablet] 2 each PO BID tablet 04/04/18 Tiotropium [place] [Spiriva Respimat] 2 puff IH DAILY #1 mist.inhal 04/04/18 Allergies/Adverse Reactions: Penicillins Adverse Reaction (Severe, Verified 03/22/18 15:15) WHEEZE Review of Systems Constitutional: PRESENT: anorexia, chills, fatigue, fever(s), weakness. ABSENT: headache(s), night sweats Eyes: ABSENT: visual disturbances Ears: ABSENT: hearing changes Nose, Mouth, and Throat: ABSENT: mouth pain, sore throat Cardiovascular: PRESENT: dyspnea on exertion. ABSENT: chest pain, palpitations Respiratory: ABSENT: cough, dyspnea Gastrointestinal: PRESENT: abdominal pain, bloating, constipation, nausea, vomiting. ABSENT: hematemesis, hematochezia Genitourinary: PRESENT: dysuria Musculoskeletal: ABSENT: back pain Integumentary: ABSENT: erythema, pruritus Neurological: PRESENT: tremor(s), weakness. ABSENT: confusion, convulsions Psychiatric: PRESENT: anxiety. ABSENT: depression Endocrine: ABSENT: cold intolerance, heat intolerance Hematologic/Lymphatic: ABSENT: easy bleeding, easy bruising Physical Exam Vital Signs: Temp Pulse Resp BP Pulse Ox 98.4 F 103 H 16 107/70 97 04/18/18 21:27 04/18/18 21:27 04/19/18 05:01 04/19/18 05:01 04/19/18 06:00 Intake & Output 04/17/18 04/18/18 04/19/18 06:59 06:59 06:59 Weight 75.9 kg General appearance: PRESENT: no acute distress, cooperative Head exam: PRESENT: atraumatic, normocephalic Eye exam: PRESENT: EOMI, PERRLA. ABSENT: scleral icterus Mouth exam: PRESENT: moist, neck supple Neck exam: ABSENT: meningismus, tenderness, thyromegaly, tracheal deviation Respiratory exam: PRESENT: clear to auscultation christian, unlabored. ABSENT: chest wall tenderness, tachypnea Cardiovascular exam: PRESENT: tachycardia - Mild Pulses: PRESENT: normal radial pulses Vascular exam: PRESENT: normal capillary refill. ABSENT: pallor GI/Abdominal exam: PRESENT: soft. ABSENT: distended, firm, guarding, tenderness Rectal exam: PRESENT: deferred Extremities exam: ABSENT: clubbing Musculoskeletal exam: ABSENT: deformity Neurological exam: PRESENT: alert, awake, oriented to person, oriented to place, oriented to time, oriented to situation, CN II-XII grossly intact Psychiatric exam: PRESENT: anxious. ABSENT: agitated, depressed Skin exam: ABSENT: cyanosis, erythema, jaundice Results Laboratory Results: 04/19/18 01:25 04/19/18 01:25 04/19/18 04/19/18 04/19/18 01:25 01:25 01:25 WBC 13.1 H RBC 4.18 Hgb 11.5 L Hct 34.6 L MCV 83 MCH 27.5 MCHC 33.2 RDW 16.0 H Plt Count 386 Seg Neutrophils % 57.7 Lymphocytes % 28.2 Monocytes % 7.2 Eosinophils % 6.0 Basophils % 0.9 Absolute Neutrophils 7.6 Absolute Lymphocytes 3.7 Absolute Monocytes 0.9 Absolute Eosinophils 0.8 H Absolute Basophils 0.1 Sodium 135.8 L Potassium 4.6 Chloride 95 L Carbon Dioxide 27 Anion Gap 14 BUN 18 Creatinine 0.81 Est GFR ( Amer) > 60 Est GFR (Non-Af Amer) > 60 Glucose 105 Calcium 10.8 H Total Bilirubin 0.7 AST 47 H ALT 48 Alkaline Phosphatase 184 H Total Protein 7.8 Albumin 4.4 Lipase 147.8 Urine Color YELLOW Urine Appearance SLIGHTLY-CLOUDY Urine pH 8.0 Ur Specific [place] 1.009 Urine Protein NEGATIVE Urine Glucose (UA) NEGATIVE Urine Ketones NEGATIVE Urine Blood SMALL H Urine Nitrite NEGATIVE Ur Leukocyte Esterase LARGE H Urine WBC (Auto) 17 Urine RBC (Auto) 4 Impressions: Abdomen/Pelvis CT 04/19/18 00:00 IMPRESSION: Interval development of abscesses within the right hepatic lobe and anterior to the stomach. Tubular hypodense collection posterior to the uterus also likely represents an additional abscess rather than small bowel or a dilated fallopian tube. Persistent inflammation and stranding along the upper abdomen. Small left pleural effusion. TECHNICAL DOCUMENTATION: Quality ID # 436: Final reports with documentation of one or more dose reduction techniques (e.g., Automated exposure control, adjustment of the mA and/or kV according to patient size, use of iterative reconstruction technique) copyright 2010 [employer]- All Rights Reserved Chest X-Ray 04/19/18 00:00 IMPRESSION: Left basilar airspace opacity with small left pleural effusion copyright 2010 [employer]- All Rights Reserved Assessment & Plan - Diagnosis (1) Nausea and vomiting Qualifiers: Vomiting type: unspecified Vomiting Intractability: unspecified Qualified Code(s): R11.2 - Nausea with vomiting, unspecified Is this a current diagnosis for this admission?: Yes (2) Generalized postprandial abdominal pain Is this a current diagnosis for this admission?: Yes (3) Urinary tract infection Qualifiers: Urinary tract infection type: site unspecified Hematuria presence: without hematuria Qualified Code(s): N39.0 - Urinary tract infection, site not specified Is this a current diagnosis for this admission?: Yes - Plan Summary Plan Summary: This is a 63-year-old female status post radical cholecystectomy for gallbladder cancer. She had a long, protracted hospital course. At home, the patient reports increasing amounts of nausea after she eats. There is also epigastric abdominal pain that is episodic, after eating. A CT scan was done showing 2 small pockets of fluid beneath the right and left lobe of the liver. Patient does not have significant abdominal tenderness. She does not have a significantly elevated white count. I do not believe these represent true abscesses, however I will have a discussion with interventional radiology to determine if percutaneous aspiration would be possible. Patient does have constipation as well as a urinary tract infection. I will treat her for these. Continue meropenem. Start stool softeners twice daily. I am also suspicious that her upper abdominal pain may be related to stress gastritis (due to her long hospital stay). I will start the patient on a PPI and Carafate. Further recommendations to be made after discussion with interventional radiology.
[2018-04-19] MEDS ORDERED: LANSOPRAZOLE 30 MG TAB.RAP.DR PO ONE (06:45)
[2018-04-19] MEDS ORDERED: PANTOPRAZOLE SODIUM 40 MG TABLET.DR PO ONE (07:00)
[2018-04-19] MEDS ORDERED: METFORMIN HCL 500 MG TABLET PO SCH (08:00)
[2018-04-19] MEDS: DOCUSATE SODIUM 100 MG CAPSULE PO SCH ×2 (09:23→17:29)
[2018-04-19] MEDS: SUCRALFATE 1 GM TABLET PO SCH ×4 (09:23→22:19)
[2018-04-19] MEDS: BUSPIRONE HCL 10 MG TABLET PO SCH ×2 (09:23→22:12)
[2018-04-19] MEDS: AMLODIPINE BESYLATE 5 MG TABLET PO SCH (09:23)
[2018-04-19] MEDS: NICOTINE 7 MG/24 HR PATCH.TD24 TD SCH (09:24)
[2018-04-19] MEDS: FLUTICASONE/VILANTEROL 200-25 MCG/DOSE IH SCH ×2 (09:33→11:28)
[2018-04-19] MEDS: TIOTROPIUM BROMIDE DPI 5 CAP/KIT (18 MCG/CAP) IH SCH ×2 (09:33→11:28)
[2018-04-19] MEDS ORDERED: FAMOTIDINE 20 MG TABLET PO SCH (10:00)
[2018-04-19] MEDS ORDERED: DOCUSATE SODIUM 100 MG CAPSULE PO SCH (10:00)
[2018-04-19] MEDS: ONDANSETRON HCL INJ/PF 4 MG/2 ML SDV IV PRN ×2 (11:33→16:17)
[2018-04-19] MEDS ORDERED: CITALOPRAM HYDROBROMIDE 20 MG TABLET PO SCH (22:00)
[2018-04-19] MEDS ORDERED: MAG HYDROX/AL HYDROX/SIMETH SUSP 30 ML UDCUP PO PRN (23:51)
[2018-04-20] MEDS ORDERED: PANTOPRAZOLE SODIUM 40 MG TABLET.DR PO SCH (06:00)
[2018-04-20] MEDS ORDERED: LANSOPRAZOLE 30 MG TAB.RAP.DR PO SCH (06:00)
[2018-04-20] MEDS: MEROPENEM 1 GM in NORMAL SALINE 50 ML IV SCH ×2 (06:24→14:02)
[2018-04-20] MEDS: SUCRALFATE 1 GM TABLET PO SCH ×3 (07:48→16:41)
[2018-04-20] MEDS ORDERED: OXYCODONE-ACETAMINOPHEN 5-325 MG TABLET PO PRN (08:00)
[2018-04-20] MEDS: BUSPIRONE HCL 10 MG TABLET PO SCH (10:46)
[2018-04-20] MEDS: DOCUSATE SODIUM 100 MG CAPSULE PO SCH ×2 (10:46→18:08)
[2018-04-20] MEDS: NICOTINE 7 MG/24 HR PATCH.TD24 TD SCH (10:46)
[2018-04-20] MEDS: TIOTROPIUM BROMIDE DPI 5 CAP/KIT (18 MCG/CAP) IH SCH (10:47)
[2018-04-20] MEDS: AMLODIPINE BESYLATE 5 MG TABLET PO SCH (10:47)
[2018-04-20] MEDS: FLUTICASONE/VILANTEROL 200-25 MCG/DOSE IH SCH (10:51)
[2018-04-20] MEDS ORDERED: ONDANSETRON HCL INJ/PF 4 MG/2 ML SDV IV PRN (12:17)
[2018-04-20] MEDS ORDERED: FLUTICASONE/VILANTEROL 200-25 MCG/DOSE IH SCH (13:00)
--- NOTE | 2018-04-20 20:29 | PDOC DISCHARGE SUMMARY ---
General - Admit/Disc Date/PCP Admission Date/Primary Care Provider: 04/19/18 05:04 AMRY MAC MD Discharge Date: 04/20/18 - Discharge Diagnosis (1) Nausea and vomiting Is this a current diagnosis for this admission?: Yes (2) Generalized postprandial abdominal pain Is this a current diagnosis for this admission?: Yes (3) Urinary tract infection Is this a current diagnosis for this admission?: Yes - Additional Information Resuscitation Status: Full Code Discharge Diet: As Tolerated Discharge Activity: Activity As Tolerated Home Medications: Albuterol Sulfate [Albuterol Sulfate 2.5mg/3 mL] 2.5 mg IH Q6HP PRN 01/14/12 Metformin HCl [Metformin HCl ER] 500 mg PO BIDBS 03/06/18 Amlodipine Besylate [Norvasc 5 mg Tablet] 5 mg PO DAILY #30 tablet 04/04/18 Benzonatate [Tessalon Perles 100 mg Capsule] 100 mg PO Q8HP PRN #30 capsule 04/04/18 Buspirone HCl [Buspar 10 mg Tablet] 10 mg PO Q12 #60 tablet 04/04/18 Citalopram Hydrobromide [Celexa 20 mg Tablet] 10 mg PO QHS #20 tablet 04/04/18 Fenofibric Acid (Choline) [Fenofibric Acid] 135 mg PO WSUPPER #90 capsule. 04/04/18 Ferrous Sulfate [Feosol 325 mg Tablet] 325 mg PO DAILY #90 tablet 04/04/18 Fluticasone/Salmeterol [Advair 250-50 Diskus 14 Dose/Diskus] 1 inh IH Q12 #1 inhaler 04/04/18 Furosemide [Lasix 20 mg Tablet] 20 mg PO ASDIR PRN #45 tablet 04/04/18 Irbesartan/Hydrochlorothiazide [Avalide 300-12.5 mg Tablet] 1 each PO DAILY #30 tablet 04/04/18 Lorazepam [Ativan 1 mg Tablet] 1 mg NG Q4HP PRN #20 tablet 04/04/18 Potassium Chloride [Klor-Con M20] 40 meq PO DAILY #60 tab.er.prt 04/04/18 Tiotropium [place] [Spiriva Respimat] 2 puff IH DAILY #1 mist.inhal 04/04/18 Doxycycline Monohydrate 100 mg PO BID 04/19/18 Hydrocodone Bit/Homatropine [Hycodan Syrup 5-1.5 mg/5 ml Ud Cup] 5 ml PO Q4HP PRN 04/19/18 History of Present Illness History of Present Illness: CARMEN RUSSO is a 63 year old female recently status post a long hospital stay for radical cholecystectomy due to gallbladder cancer. Patient reports increasing amounts of nausea and vomiting at home over the last 2 weeks. She has been taking Zofran to control her nausea, but it does not appear to be helping. She reports low-grade fevers of 99.5. She reports generalized malaise and fatigue. She denies chest pain, headache, blurry vision, orthostasis, melena, hematochezia, hematemesis. She does report shortness of breath (similar to baseline), fevers, chills, fatigue, malaise, abdominal pain, nausea, vomiting, constipation, and dysuria. Hospital Course Hospital Course: The patient was admitted to the hospital. A CT scan was performed showing 2 small fluid collections in the abdomen in the area of the previous biloma. They do not appear infected, as they are water density, have no air within them, or significant inflammatory rind. The patient was observed in the hospital. She was found to have leukocyte esterase and bacteria in her urine. She was started on antibiotics for a urinary tract infection. She was started on PPI and Carafate for potential stress gastritis. The patient immediately began feeling better. On hospital day #1 she was ambulating, tolerating a diet, and was feeling much improved. At this time it was felt that she had reached maximal hospital benefit and was fit for discharge. Physical Exam Vital Signs: Temp Pulse Resp BP Pulse Ox 97.6 F 93 20 104/57 L 96 04/20/18 19:25 04/20/18 19:25 04/20/18 19:25 04/20/18 19:25 04/20/18 19:25 Intake & Output 04/19/18 04/20/18 04/21/18 06:59 06:59 06:59 Intake Total 1000 1598 800 Balance 1000 1598 800 Weight 75.9 kg 74.8 kg Results Laboratory Results: 04/19/18 01:25 04/19/18 01:25 04/19/18 01:25 Clean Catch Midstream Urine Culture - Final Mixed Urogenital Olivia Impressions: Abdomen/Pelvis CT 04/19/18 00:00 IMPRESSION: Interval development of abscesses within the right hepatic lobe and anterior to the stomach. Tubular hypodense collection posterior to the uterus also likely represents an additional abscess rather than small bowel or a dilated fallopian tube. Persistent inflammation and stranding along the upper abdomen. Small left pleural effusion. TECHNICAL DOCUMENTATION: Quality ID # 436: Final reports with documentation of one or more dose reduction techniques (e.g., Automated exposure control, adjustment of the mA and/or kV according to patient size, use of iterative reconstruction technique) copyright 2010 [employer]- All Rights Reserved Chest X-Ray 04/19/18 00:00 IMPRESSION: Left basilar airspace opacity with small left pleural effusion copyright 2010 [employer]- All Rights Reserved Qualifiers - * PATIENT BEING DISCHARGED WITH ANY OF THE FOLLOWING DIAGNOSIS: No Plan Discharge Plan: Discharge home. Diet as tolerated. Activity: Nonstrenuous. Follow-up with [facility] in 2 weeks. Levaquin 500 mg p.o. daily. Flagyl 500 mg p.o. 3 times daily. Protonix 40 mg p.o. daily. Sucralfate 1 g p.o. 4 times daily. Time Spent: Less than 30 Minutes
[2018-04-20 20:42] VITALS: BP 111/62
== END 2018-04-20 21:10 | disposition home or self-care (01) ==
LOC: ER 21:05 → EH 04-19 05:04 → INTOOBSV 04-19 05:04 → 5 04-19 07:43
PROVIDERS: ATTEND Surgery
DX: R11.2 Nausea with vomiting, unspecified (principal); R10.84 Generalized abdominal pain; N39.0 Urinary tract infection, site not specified; R50.9 Fever, unspecified; R53.83 Other fatigue; R53.81 Other malaise; K59.00 Constipation, unspecified; R06.02 Shortness of breath; I10 Essential (primary) hypertension; R63.0 Anorexia; R14.0 Abdominal distension (gaseous); R25.1 Tremor, unspecified; R53.1 Weakness; F41.9 Anxiety disorder, unspecified; R00.0 Tachycardia, unspecified; R10.13 Epigastric pain; D72.828 Other elevated white blood cell count; J44.9 Chronic obstructive pulmonary disease, unspecified; Z79.899 Other long term (current) drug therapy; Z79.84 Long term (current) use of oral hypoglycemic drugs; Z90.49 Acquired absence of other specified parts of digestive tract; Z85.09 Personal history of malignant neoplasm of other digestive organs; Z98.890 Other specified postprocedural states; Z87.891 Personal history of nicotine dependence
CPT/HCPCS: 99285; 36415; 87086; 83690; 85025; 80053; 81001; 71046; 74177; 94640; S0119; J3490 ×3; J3480; J2405 ×2; J7030; J2185 ×2

== ENCOUNTER 2018-05-01 11:36 | Emergency (ER) | payer BC, OTHER ==
--- NOTE | 2018-05-01 12:59 | ER Document Report ---
ED Medical Screen (RME) - General Chief Complaint: Nausea/Vomiting Stated Complaint: VOMITING Time Seen by Provider: 05/01/18 12:48 Primary Care Provider: MARY MAC MD [Primary Care Provider] - Follow up as needed Notes: Patient is a 63-year-old female with COPD/asthma that presents to the emergency department for chief complaint of shortness of breath, and nausea and vomiting. Patient states yesterday she had nausea and vomiting, does have a bile duct stent, though supposed to be removed today, but she is been feeling more short of breath and was told to come to the emergency department. ROS: Other than noted above, the 12 point review of systems was reviewed with the patient and were negative, all pertinent findings are included in the HPI. PHYSICAL EXAMINATION: Vital signs reviewed. GENERAL: Chronically ill-appearing female, no acute distress HEAD: Atraumatic, normocephalic. EYES: Pupils equal round extraocular movements intact, conjunctiva are normal. ENT: Nares patent NECK: Normal range of motion CV: Heart regular rate and rhythm LUNGS: No respiratory distress, diminished lung sounds on the left Musculoskeletal: Normal range of motion NEUROLOGICAL: Normal speech, resting tremor, chronic per patient PSYCH: Normal mood, normal affect. MDM: Patient seen and examined for rapid initial assessment. Vital signs reviewed. A comprehensive ED assessment and evaluation of the patient, analysis of test results and completion of the medical decision making process will be conducted by additional ED providers. *Note is created using voice recognition software and may contain spelling, syntax or grammatical errors. TRAVEL OUTSIDE OF THE [place] IN LAST 30 DAYS: No - Related Data Allergies/Adverse Reactions: Penicillins Adverse Reaction (Severe, Verified 05/01/18 12:49) WHEEZE metronidazole [From Flagyl] Adverse Reaction (Verified 05/01/18 12:49) Past Medical History - Social History Frequency of alcohol use: None Drug Abuse: None Family history: Reviewed & Not Pertinent - Past Medical History Cardiac Medical History: Reports: Hx Hypertension - ON MEDS Denies: Hx Coronary Artery Disease, Hx Heart Attack Pulmonary Medical History: Reports: Hx Asthma, Hx Bronchitis - HX OF , Hx COPD - INHALER, NEBULIZER, Hx Pneumonia - 08/21 Neurological Medical History: Reports: Hx Seizures - A CHILD X 1, NO MEDS. Denies: Hx Cerebrovascular Accident Endocrine Medical History: Reports: Hx Diabetes Mellitus Type 2 - borderline Renal/ Medical History: Denies: Hx Peritoneal Dialysis Musculoskeltal Medical History: Denies Hx Arthritis Past Surgical History: Reports: Hx Orthopedic Surgery - left foot/ titanium plates placed, Hx Tonsillectomy, Other - Radical cholecystectomy, liver resection, periportal lymphadenectomy. Denies: Hx Hysterectomy - Immunizations Hx Diphtheria, Pertussis, Tetanus Vaccination: No History of Influenza Vaccine for 11/2016 - 04/2017 Season: Yes Influenza Administration Date for 11/2016 - 04/2017 Season: 11/06/17 Physical Exam - Vital signs Vitals: Temp Pulse Resp BP Pulse Ox 97.8 F 95 22 H 143/76 H 94 05/01/18 11:49 05/01/18 11:49 05/01/18 11:49 05/01/18 11:49 05/01/18 11:49 Course - Vital Signs Vital signs: Temp Pulse Resp BP Pulse Ox 97.8 F 95 22 H 143/76 H 94 05/01/18 11:49 05/01/18 11:49 05/01/18 11:49 05/01/18 11:49 05/01/18 11:49 Doctor's Discharge - Discharge Referrals: MARY MAC MD [Primary Care Provider] - Follow up as needed
[2018-05-01] MEDS ORDERED: IPRATROPIUM/ALBUTEROL 0.5-2.5 MG/3 ML AMPUL NEB ONE (13:00)
--- NOTE | 2018-05-01 13:34 | RADIOLOGY REPORT (SQ) ---
EXAM DESCRIPTION: CHEST SINGLE VIEW COMPLETED DATE/TIME: 05/01/2018 1:23 pm REASON FOR STUDY: shortness of breath COMPARISON: 04/19/2018 EXAM PARAMETERS: NUMBER OF VIEWS: One view. TECHNIQUE: Single frontal radiographic view of the chest acquired. RADIATION DOSE: NA LIMITATIONS: None. FINDINGS: LUNGS AND PLEURA: There are small bilateral pleural effusions left greater than right. Th e left pleural effusion has increased since prior study. Minimal right basilar atelectasis. MEDIASTINUM AND HILAR STRUCTURES: No masses. Contour normal. HEART AND VASCULAR STRUCTURES: Heart normal in size. Normal vasculature. BONES: No acute findings. HARDWARE: None in the chest. OTHER: No other significant finding. IMPRESSION: Small bilateral pleural effusions left greater than right. The left pleural effusion tucker s slightly increased since the . TECHNICAL DOCUMENTATION: JOB ID: [id number] [employer]- All Rights Reserved Reading location - IP/workstation name: [email or web address]
[2018-05-01 14:38] LABS: ABSOLUTE BASOPHILS # (AUTO) 0.1 10^3/uL (0.0-0.2); ABSOLUTE EOSINOPHILS # (AUTO) 0.5 10^3/uL (0.0-0.6); ABSOLUTE LYMPHOCYTES (AUTO) 1.8 10^3/uL (0.5-4.7); ABSOLUTE MONOCYTES (AUTO) 0.6 10^3/uL (0.1-1.4); ABSOLUTE NEUT (AUTO) 4.2 10^3/uL (1.7-8.2); BASOPHILS % (AUTO) 0.8 % (0-2); EOSINOPHILS % (AUTO) 7.2 % (0-6); HEMATOCRIT 34.9 % (36.0-47.0); HEMOGLOBIN 11.6 g/dL (12.0-15.5); LYMPHOCYTES % (AUTO) 24.9 % (13-45); MEAN CORPUSCULAR HEMOGLOBIN 28.1 pg (27.0-33.4); MEAN CORPUSCULAR HGB CONC 33.4 g/dL (32.0-36.0); MEAN CORPUSCULAR VOLUME 84 fl (80-97); MONOCYTES % (AUTO) 8.2 % (3-13); PLATELET COUNT 312 10^3/uL (150-450); RED BLOOD COUNT 4.14 10^6/uL (3.72-5.28); RED CELL DISTRIBUTION WIDTH 17.3 % (11.5-14.0); SEGMENTED NEUTROPHILS % (AUTO) 58.9 % (42-78); TOTAL CELLS COUNTED % (AUTO) 100 %; WHITE BLOOD COUNT 7.1 10^3/uL (4.0-10.5)
[2018-05-01] MEDS ORDERED: ONDANSETRON HCL INJ/PF 4 MG/2 ML SDV IV ONE (14:42)
[2018-05-01 14:54] LABS: ALANINE AMINOTRANSFERASE 34 U/L (9-52); ALBUMIN 3.5 g/dL (3.5-5.0); ALKALINE PHOSPHATASE 112 U/L (38-126); ANION GAP 10 (5-19); ASPARTATE AMINO TRANSFERASE 28 U/L (14-36); BILIRUBIN,DIRECT 0.2 mg/dL (0.0-0.4); BILIRUBIN,TOTAL 0.6 mg/dL (0.2-1.3); BLOOD UREA NITROGEN 7 mg/dL (7-20); CARBON DIOXIDE 27 mmol/L (22-30); CHLORIDE 103 mmol/L (98-107); GLUCOSE 95 mg/dL (75-110); POTASSIUM 3.5 mmol/L (3.6-5.0); SODIUM 139.5 mmol/L (137-145); TOTAL PROTEIN 6.6 g/dL (6.3-8.2)
[2018-05-01 15:08] LABS: NT PRO BNP 396 pg/mL (5-900)
[2018-05-01 15:09] LABS: TROPONIN I < 0.012 ng/mL
--- NOTE | 2018-05-01 16:06 | ER Document Report ---
ED GI/ - General Chief Complaint: Nausea/Vomiting Stated Complaint: VOMITING Time Seen by Provider: 05/01/18 12:48 Primary Care Provider: MARY MAC MD [ACTIVE STAFF] - Follow up as needed Mode of Arrival: Ambulatory Information source: Patient Notes: Patient is a 63-year-old female with a recent history of diagnosis of pleural effusions and gallbladder cancer, also has a history of COPD and "chronic bronchitis" patient has oxygen at home that she usually just sleeps on but states that over the last 2-3 days she has been more short of breath and has had to use it constantly. Patient also admits to some nausea and some dry heaves, vomiting once today. Patient was scheduled to have her bile stent removal today but the GI doctor, Dr. [facility] here for the shortness of breath. Patient has no history of congestive heart failure, has been trying her albuterol at home with relief. Patient states that she was discharged from the hospital on Lasix for the same issue last time but did not take the entire 20 days, just half of that and does not have the Lasix any longer. TRAVEL OUTSIDE OF THE [place] IN LAST 30 DAYS: No - Related Data Allergies/Adverse Reactions: Penicillins Adverse Reaction (Severe, Verified 05/01/18 12:49) WHEEZE metronidazole [From Flagyl] Adverse Reaction (Verified 05/01/18 12:49) Past Medical History - General Information source: Patient - Social History Smoking Status: Former Smoker Frequency of alcohol use: None Drug Abuse: None Family History: Reviewed & Not Pertinent Patient has suicidal ideation: No Patient has homicidal ideation: No - Past Medical History Cardiac Medical History: Reports: Hx Hypertension - ON MEDS Denies: Hx Coronary Artery Disease, Hx Heart Attack Pulmonary Medical History: Reports: Hx Asthma, Hx Bronchitis - HX OF , Hx COPD - INHALER, NEBULIZER, Hx Pneumonia - 08/21 Neurological Medical History: Reports: Hx Seizures - A CHILD X 1, NO MEDS. Denies: Hx Cerebrovascular Accident Endocrine Medical History: Reports: Hx Diabetes Mellitus Type 2 - borderline Renal/ Medical History: Denies: Hx Peritoneal Dialysis Musculoskeletal Medical History: Denies Hx Arthritis Past Surgical History: Reports: Hx Orthopedic Surgery - left foot/ titanium plates placed, Hx Tonsillectomy, Other - Radical cholecystectomy, liver resection, periportal lymphadenectomy. Denies: Hx Hysterectomy - Immunizations Hx Diphtheria, Pertussis, Tetanus Vaccination: No Hx Pneumococcal Vaccination: 11/16/10 Review of Systems - Review of Systems Constitutional: No symptoms reported EENT: No symptoms reported Cardiovascular: No symptoms reported Respiratory: See HPI Gastrointestinal: See HPI Genitourinary: No symptoms reported Female Genitourinary: No symptoms reported Musculoskeletal: No symptoms reported Skin: No symptoms reported Hematologic/Lymphatic: No symptoms reported Neurological/Psychological: No symptoms reported Physical Exam - Vital signs Vitals: Temp Pulse Resp BP Pulse Ox 97.8 F 95 22 H 143/76 H 94 05/01/18 11:49 05/01/18 11:49 05/01/18 11:49 05/01/18 11:49 05/01/18 11:49 - Notes Notes: PHYSICAL EXAMINATION: GENERAL: Chronically ill appearing and in no acute distress. HEAD: Atraumatic, normocephalic. EYES: Pupils equal round and reactive to light, extraocular movements intact, sc maximo anicteric, conjunctiva are normal. ENT: airway patent, ear canals without erythema or foreign body, TMs pearly blount with good bony landmarks, nares patent, oropharynx clear without exudates. Moist mucous membranes. NECK: Normal range of motion, supple without lymphadenopathy LUNGS: On nasal cannula oxygen, otherwise CTAB and equal. No wheezes rales or rhonchi. HEART: Regular rate and rhythm without murmurs ABDOMEN: Soft, no tenderness. No guarding, no rebound BACK: no vertebral tenderness, normal ROM GI/: no CVA tenderness EXTREMITIES: Normal range of motion, no pitting edema. No cyanosis. NEUROLOGICAL: resting tremor, otherwise Cranial nerves grossly intact. Normal sensory/motor exams. PSYCH: Normal mood, normal affect. SKIN: Warm, Dry, normal turgor, no rashes or lesions noted Course - Re-evaluation Re-evalutation: 05/01/18 16:19 Lab work is unremarkable today, BNP within normal limits, chest x-ray reveals small bilateral pleural effusions, patient states that Lasix worked for her before, she actually has stable vital signs without the oxygen but feels better with it. Patient has oxygen at home, states that she will wear all the time and also take the potassium that she has at home with her Lasix that I will prescribe for, patient will follow up with primary care provider about continued management of this issue, low threshold for return, patient and has been given strict return precautions. Patient was given option for possible admission today but states that she would really like to go home and try at home management first. - Vital Signs Vital signs: Temp Pulse Resp BP Pulse Ox 99.2 F 95 22 H 143/76 H 94 05/01/18 13:54 05/01/18 11:49 05/01/18 11:49 05/01/18 11:49 05/01/18 13:55 - Laboratory Result Diagrams: 05/01/18 14:20 05/01/18 14:20 Laboratory results interpreted by me: 05/01/18 05/01/18 14:20 14:20 Hgb 11.6 L Hct 34.9 L RDW 17.3 H Eosinophils % 7.2 H Potassium 3.5 L Creatinine 0.49 L Discharge - Discharge Clinical Impression: Small pleural effusion Condition: Stable Disposition: HOME, SELF-CARE Additional Instructions: Return immediately for any new or worsening symptoms. Follow up with primary care provider, call tomorrow to make followup appoin tment. Prescriptions: Furosemide [Lasix 20 mg Tablet] 20 mg PO BID #60 tablet Referrals: MARY MAC MD [ACTIVE STAFF] - Follow up as needed
[2018-05-01 16:16] VITALS: BP 129/78
[2018-05-01] MEDS ORDERED: FUROSEMIDE INJ/PF 40 MG/4 ML SDV IV ONE (16:20)
[2018-05-01] MEDS ORDERED: FUROSEMIDE 40 MG TABLET PO ONE (16:24)
--- NOTE | 2018-05-01 21:51 | EKG REPORT ---
SEVERITY:- DEFECTIVE ECG - SINUS TACHYCARDIA BASELINE ARTIFACT.REPEAT EKG : Confirmed by: Claire Pagan MD 01-May-2018 21:51:12
== END 2018-05-01 16:43 | disposition home or self-care (01) ==
LOC: ER 11:36
DX: J90 Pleural effusion, not elsewhere classified (principal); R11.2 Nausea with vomiting, unspecified; R06.02 Shortness of breath; J45.909 Unspecified asthma, uncomplicated; I10 Essential (primary) hypertension; E11.9 Type 2 diabetes mellitus without complications; Z79.899 Other long term (current) drug therapy; Z87.891 Personal history of nicotine dependence
CPT/HCPCS: 93005; 94640; 99284; 36415; 85025; 80053; 84484; 83880; 71045; 93010; J7620

== ENCOUNTER 2018-05-15 08:26 | Day surgery (SDC) | payer BC, OTHER ==
[~2018-05-15 08:26] MED LIST changes: +ACETAMINOPHEN 325 MG TABLET PO PRN; -CEFAZOLIN 1 GM/D5W RTU 1 GM/50 ML RTUPB IV PRN; -CIPROFLOXACIN 400 MG/D5W RTU 400 MG/200 ML RTUPB IV PRN; +CLINDAMYCIN 600 MG/D5W RTU 600 MG/50 ML RTUPB IV ONE; +CLINDAMYCIN 600 MG/D5W RTU 600 MG/50 ML RTUPB IV PRN; -METRONIDAZOLE 500 MG/NS RTU 500 MG/100 ML RTUPB IV PRN
--- NOTE | 2018-05-15 09:04 | RADIOLOGY REPORT (SQ) ---
EXAM DESCRIPTION: CHEST SINGLE VIEW COMPLETED DATE/TIME: 05/15/2018 8:53 am REASON FOR STUDY: PREOP COMPARISON: CT chest 03/27/2018 AP chest 03/31/2018, 04/09/2018, 05/01/2018 EXAM PARAMETERS: NUMBER OF VIEWS: One view. TECHNIQUE: Single frontal radiographic view of the chest acquired. RADIATION DOSE: NA LIMITATIONS: None. FINDINGS: LUNGS AND PLEURA: Minimal blunting left lateral costophrenic sulcus from minimal pleural f luid or pleural thickening, improved compared to 05/01/2018. Minimal bibasilar atelectasis or scarring. Lungs are otherwise well inflated and clear. No right pleural effusion. No right or left pneumothorax. MEDIASTINUM AND HILAR STRUCTURES: No masses. Contour normal. HEART AND VASCULAR STRUCTURES: Mild cardiomegaly BONES: No acute findings. HARDWARE: None in the chest. OTHER: No other significant finding. IMPRESSION: Mild cardiomegaly with trace left pleural fluid/ pleural thickening. TECHNICAL DOCUMENTATION: JOB ID: [id number] [employer]- All Rights Reserved Reading location - IP/workstation name: [email or web address]
[2018-05-15 09:15] LABS: HEMATOCRIT 36.4 % (36.0-47.0); HEMOGLOBIN 12.2 g/dL (12.0-15.5); MEAN CORPUSCULAR HEMOGLOBIN 28.7 pg (27.0-33.4); MEAN CORPUSCULAR HGB CONC 33.5 g/dL (32.0-36.0); MEAN CORPUSCULAR VOLUME 86 fl (80-97); PLATELET COUNT 230 10^3/uL (150-450); RED BLOOD COUNT 4.25 10^6/uL (3.72-5.28); RED CELL DISTRIBUTION WIDTH 17.3 % (11.5-14.0); WHITE BLOOD COUNT 7.2 10^3/uL (4.0-10.5)
[2018-05-15 09:35] LABS: POTASSIUM 3.1 mmol/L (3.6-5.0)
[2018-05-15] MEDS ORDERED: ALBUTEROL SULFATE 0.083% NEB 2.5 MG/3 ML AMPUL NEB ONE (09:54)
[2018-05-15] MEDS ORDERED: PROPOFOL INJ 200 MG/20 ML VIAL IV ONE (09:58)
[2018-05-15] MEDS ORDERED: MIDAZOLAM 2 MG/2 ML INJ ONE (09:58)
[2018-05-15] MEDS ORDERED: FENTANYL CITRATE INJ/PF 100 MCG/2 ML AMPUL ONE (09:58)
[2018-05-15] MEDS ORDERED: BUPIVACAINE HCL 0.25% /EPINEPHRINE INJ/PF 30 ML SDV ONE (09:59)
[2018-05-15] MEDS ORDERED: POTASSIUM CHLORIDE 20 MEQ/15 ML UDCUP PO ONE (10:30)
--- NOTE | 2018-05-15 11:33 | Operative Report ---
Nonrecallable Operative Report DATE OF SURGERY: 05/15/18 PREOPERATIVE DIAGNOSIS: gallbladder cancer POSTOPERATIVE DIAGNOSIS: gallbladder cancer OPERATION: portacath placement SURGEON: MARLENI DESHPANDE ANESTHESIA: Moderate Sedation COMPLICATIONS: none ESTIMATED BLOOD LOSS: 2cc INTRAOPERATIVE FINDINGS: see dictation PROCEDURE: see dictation
[2018-05-15] MEDS ORDERED: OXYCODONE-ACETAMINOPHEN 5-325 MG TABLET PO PRN (11:34)
--- NOTE | 2018-05-15 11:37 | Discharge Summary ---
Discharge Summary (SDC) - Discharge Final Diagnosis: gallbladder cancer Date of Surgery: 05/15/18 Discharge Date: 05/15/18 Condition: Good Treatment or Instructions: ok to shower tomorrow leave dressing in place ok to remove top layer of dressing in 2 days leave sterstrips in place till the fall off themselves. Referrals: JASWANT EDWARDS MD [Primary Care Provider] - Report the Following to Your Physician Immediately: Shortness of Breath, Increase in Pain, Redness
--- NOTE | 2018-05-15 12:43 | RADIOLOGY REPORT (SQ) ---
EXAM DESCRIPTION: CHEST SINGLE VIEW COMPLETED DATE/TIME: 05/15/2018 12:18 pm REASON FOR STUDY: portacath COMPARISON: CT chest 03/27/2018 Chest films 03/28/2018, 03/31/2018, 04/19/2018, 05/01/2018, 05/15/2018 EXAM PARAMETERS: NUMBER OF VIEWS: One view. TECHNIQUE: Single frontal radiographic view of the chest acquired. RADIATION DOSE: NA LIMITATIONS: None. FINDINGS: LUNGS AND PLEURA: Minimal bandlike scarring at both lung bases. No acute infiltrates. No pleural effusion or pneumothorax. MEDIASTINUM AND HILAR STRUCTURES: No masses. Contour normal. HEART AND VASCULAR STRUCTURES: Heart normal in size. Normal vasculature. BONES: No acute findings. HARDWARE: Left-sided permanent central line tip superior vena cava. OTHER: No other significant finding. IMPRESSION: No acute findings. Chronic bibasilar scarring or atelectasis. No pneumothorax post left permanent central line catheter placement TECHNICAL DOCUMENTATION: JOB ID: [id number] [employer]- All Rights Reserved Reading location - IP/workstation name: [email or web address]
--- NOTE | 2018-05-15 12:48 | RADIOLOGY REPORT (SQ) ---
EXAM DESCRIPTION: FLUORO/CV PLACEMENT COMPLETED DATE/TIME: 05/15/2018 12:07 pm REASON FOR STUDY: PORT A CATH C24.0 MALIGNANT NEOPLASM OF EXTRAHEPATIC BILE DUCT COMPARISON: AP chest 05/15/2018 FLUOROSCOPY TIME: 2.2 minutes 2 C-arm digital images saved to PACS. TECHNIQUE: Intra-operative images acquired during surgical procedure to evaluate progress. NUMBER OF IMAGES: 2 digital C-arm images LIMITATIONS: None. FINDINGS: Intra procedural imaging and fluoro during placement of a left-sided permanent central catie e with the tip in the superior vena cava IMPRESSION: IMAGE(S) OBTAINED DURING PROCEDURE. COMMENT: Quality ID [id number]: Final reports for procedures using fluoroscopy that document radiation exp osure indices, or exposure time and number of fluorographic images (if radiation exposure indices are not available) Please consult full operative report of the attending physician for description of the procedure. TECHNICAL DOCUMENTATION: JOB ID: [id number] [employer]- All Rights Reserved Reading location - IP/workstation name: [email or web address]
--- NOTE | 2018-05-15 13:29 | OPERATIVE REPORT E ---
Operative Report NAME: CARMEN RUSSO : 1955 AGE: 63Y DATE OF SURGERY: 05/15/2018 ROOM: PREOPERATIVE DIAGNOSIS: Gallbladder cancer. POSTOPERATIVE DIAGNOSIS: Gallbladder cancer. OPERATIVE PROCEDURE: Port-A-Cath placement, left chest. SURGEON: MARLENI DESHPANDE M.D. ANESTHESIA: IV sedation. INDICATIONS FOR OPERATION: This is a 63-year-old female with known gallbladder cancer, status post a radical cholecystectomy a few months ago. She is to undergo chemotherapy and needs venous access. PROCEDURE: The patient was brought to the operating room in awake, alert, and stable condition, placed on the operating table in a supine position, given IV sedation. The left chest and neck were prepped and draped in the usual sterile fashion. After appropriate time out a left subclavian stick was made with a 16-gauge needle. After cannulating the vein a wire was placed through the needle using Seldinger technique and confirmed on fluoroscopy. With good placement of the wire we used the tear-away introducer, dilator placed over the wire, using fluoroscopy passed the tear-away introducer into the superior vena cava, and the dilator was removed. An 8-[place] catheter was then placed in through the tear-away introducer, confirmed in good position, and the tear-away introducer was then removed. After anesthetizing the skin on the left chest, a counterincision was made with a 15 blade and dissection was carried down through subcutaneous tissue with Bovie cautery. An inferior pocket was made for the port. The tunnel maker supplied with the Port-A-Cath kit was then utilized, attached to the catheter at the subclavian stick site, and tunneled underneath the skin to the port site. It was then attached to the port, which fit well and tight into the pocket made for it with sharp and blunt dissection. Once it was attached we confirmed good placement on fluoroscopy. We irrigated the port with heparinized saline solution, and we closed the subcutaneous tissue with interrupted 3-0 placed Vicryl suture and closed the skin on both incisions with intracuticular 4-0 Biosyn. Steri-Strips completed the procedure. Estimated blood loss was less than 2 mL. Sponge and needle counts were all correct x2 at the termination of the procedure. She will receive a chest x-ray in postop. DICTATING PHYSICIAN: MARLENI DESHPANDE M.D. [id number] PHY#: [id number] ID: [id number] JOB#: [id number] ACCT: [id number] cc:MARLENI DESHPANDE M.D. >
[2018-05-15 13:34] VITALS: BP 109/63
--- NOTE | 2018-05-15 23:59 | EKG REPORT ---
SEVERITY:- NORMAL ECG - SINUS RHYTHM : Confirmed by: Madison Abbasi 15-May-2018 23:59:14
== END 2018-05-15 13:10 | disposition home or self-care (01) ==
LOC: OROUT 08:26
PROVIDERS: ATTEND Surgery
DX: C24.0 Malignant neoplasm of extrahepatic bile duct (principal); R73.03 Prediabetes; R56.9 Unspecified convulsions; I10 Essential (primary) hypertension; G47.30 Sleep apnea, unspecified; J45.909 Unspecified asthma, uncomplicated; Z79.899 Other long term (current) drug therapy; Z79.84 Long term (current) use of oral hypoglycemic drugs; Z99.81 Dependence on supplemental oxygen; Z87.891 Personal history of nicotine dependence; Z79.51 Long term (current) use of inhaled steroids; Z88.0 Allergy status to penicillin
CPT/HCPCS: 36561; 36415; 82947; 84132; 85027; 71045; 77001; 93005; 93010; C1788; Q9967; J2250; J3490; J3010; J2704; J1642; 532

== ENCOUNTER → 2018-07-18 | Outpatient (CLI) | payer OTHER ==
--- NOTE | 2018-07-18 13:56 | RADIOLOGY REPORT (SQ) ---
EXAM DESCRIPTION: SHOULDER LEFT 2 OR MORE VIEWS COMPLETED DATE/TIME: 07/18/2018 1:34 pm REASON FOR STUDY: PAIN IN LEFT SHOULDER M25.512 PAIN IN LEFT SHOULDER COMPARISON: None. NUMBER OF VIEWS: Three views. TECHNIQUE: Internal rotation, external rotation, and Y view images acquired of the left shoulder. LIMITATIONS: None. FINDINGS: MINERALIZATION: Normal. BONES: No acute fracture or dislocation. No worrisome bone lesions. JOINTS: No dislocation. VISUALIZED LUNGS AND RIBS: No pneumothorax. No rib fracture. SOFT TISSUES: No radiopaque foreign body. OTHER: No other significant finding. IMPRESSION: NEGATIVE STUDY OF THE LEFT SHOULDER. NO RADIOGRAPHIC EVIDENCE OF ACUTE INJURY. TECHNICAL DOCUMENTATION: JOB ID: [id number] [employer]- All Rights Reserved Reading location - IP/workstation name: [email or web address]
== END ==
LOC: RAD 13:20
PROVIDERS: ATTEND Internal Medicine
DX: M25.512 Pain in left shoulder (principal)

== ENCOUNTER → 2018-08-13 | Outpatient (CLI) | payer OTHER ==
--- NOTE | 2018-08-13 14:24 | RADIOLOGY REPORT (SQ) ---
EXAM DESCRIPTION: CT CHEST WITH; CT ABD/PELVIS WITH IV ONLY COMPLETED DATE/TIME: 08/13/2018 1:58 pm REASON FOR STUDY: C24.0 MALIGNANT NEOPLASM OF EXTRAHEPATIC BILE DUCT C24.0 MALIGNANT NEOPLASM OF EX TRAHEPATIC BILE DUCT COMPARISON: CT chest 03/18/2018 CT chest abdomen pelvis 03/27/2018, 03/21/2018 CT abdomen pelvis 04/09/2018, 03/20/2018, 03/15/2018 CONTRAST TYPE AND DOSE: contrast/concentration: Isovue 350.00 mg/ml; Total Contrast Delivered: 87.0 ml; Total Saline Delivered: 69.0 ml RENAL FUNCTION: Creatinine 0.5 TECHNIQUE: CT scan of the chest performed using helical scanning technique with dynamic intravenous contrast injection. Images reviewed with lung, soft tissue and bone windows. Reconstructed coronal a nd sagittal MPR images reviewed. All images stored on PACS. CT scan of the abdomen and pelvis performed with intravenous and without oral contrastusing helical s michael technique with dynamic intravenous contrast injection. Images reviewed with lung, soft tissu e and bone windows. Reconstructed coronal and sagittal MPR images reviewed. Delayed images for eval uation of the urinary system also acquired and evaluated. All images stored on PACS. All CT scanners at this facility use dose modulation, iterative reconstruction, and/or weight based d osing when appropriate to reduce radiation dose to as low as reasonably achievable (ALARA). [facility]: Dose Right [facility]: CareDose [facility]: Dose Right [facility]: Teradose 4D [facility]: Smart Playboox RADIATION DOSE: CT Rad equipment meets quality standard of care and radiation dose reduction techniq ues were employed. CTDIvol: 8.8 - 12.6 mGy. DLP: 2290 mGy-cm. . LIMITATIONS: None. FINDINGS: CHEST: LUNGS AND PLEURA: Minimal bandlike atelectasis at the right lung base and left lung base. No fluffy alveolar infiltrates worrisome for pulmonary edema or pneumonia. No pulmonary nodules, pneumothorax, or pleural effusion. HILAR AND MEDIASTINAL STRUCTURES: No identified masses or abnormal nodes. HEART AND VASCULAR STRUCTURES: No aneurysm or dissection. No central pulmonary emboli. No pericardi al effusion. HARDWARE: Left-sided permanent central line tip superior vena cava THYROID AND OTHER SOFT TISSUES: No masses. No adenopathy. BONES: No significant finding. OTHER: No other significant finding. ABDOMEN AND PELVIS: LIVER: Normal size. No masses. No dilated ducts. SPLEEN: Normal size. No focal lesions. PANCREAS: No masses. No significant calcifications. No adjacent inflammation or peripancreatic fluid collections. Pancreatic duct not dilated. GALLBLADDER: Multiple surgical clips right upper quadrant post cholecystectomy and krysta hepatis lymp h node dissection ADRENAL GLANDS: No significant masses or asymmetry. RIGHT KIDNEY AND URETER: No solid masses. 10 mm right upper pole intrarenal nonobstructive kidney st one, 650 Hounsfield units in density. No right ureteral calculi. No hydronephrosis or hydroureter. LEFT KIDNEY AND URETER: Subtle nonenhancing left upper pole 2 cm diameter nodule is now evident on ax ial image 25 and coronal image 74. This is new compared to previous studies. 3 mm left lower pole i ntrarenal nonobstructive stone. No ureteral calculi. No hydronephrosis or hydroureter. AORTA AND VESSELS: No aneurysm. No dissection. Renal arteries, SMA, celiac without stenosis. RETROPERITONEUM: No retroperitoneal adenopathy, hemorrhage or masses. BOWEL AND PERITONEAL CAVITY: No masses or inflammatory changes. No free fluid or peritoneal masses. APPENDIX: Normal. ABDOMINAL WALL: No masses. No hernias. PELVIS: No mass or free fluid. Normal bladder. Normal size female pelvic organs BONES: No significant or acute findings. OTHER: No other significant finding. IMPRESSION: Minimal bibasilar atelectasis. No findings worrisome for metastatic disease to the ches t New subtle 2 cm left upper pole renal mass Post cholecystectomy with krysta hepatis lymph node dissection TECHNICAL DOCUMENTATION: JOB ID: [id number] Quality ID # [id number]: Final reports with documentation of one or more dose reduction techniques (e.g., Au tomated exposure control, adjustment of the mA and/or kV according to patient size, use of iterative reconstruction technique) 2010 [employer]- All Rights Reserved Reading location - IP/workstation name: [email or web address]
== END ==
LOC: RAD 12:58
PROVIDERS: ATTEND Physician Assistant Medical
DX: C24.0 Malignant neoplasm of extrahepatic bile duct (principal); N28.89 Other specified disorders of kidney and ureter
CPT/HCPCS: 82565; 71260; 74177; J1642

== ENCOUNTER → 2018-08-21 | Outpatient (CLI) | payer OTHER ==
--- NOTE | 2018-08-22 09:17 | RADIOLOGY REPORT (SQ) ---
EXAM DESCRIPTION: PET CT SKULL/THIGH COMPLETED DATE/TIME: 08/21/2018 7:43 pm REASON FOR STUDY: C24.0 MALIGNANT NEOPLASM OF EXTRAHEPATIC BILE DUCT C24.0 MALIGNANT NEOPLASM OF EX TRAHEPATIC BILE DUCT COMPARISON: None. RADIONUCLIDE AND DOSE: 11.08 mCi F18 FDG The route of agent administration: Intravenous FASTING BLOOD SUGAR: 86 mg/dl CONTRAST TYPE AND DOSE: No CT contrast given. TECHNIQUE: Blood glucose level was verified. Above dose of FDG was injected intravenously. 2-D seg mented attenuation correction images were obtained from the base of the skull to the midthighs. Nonc ontrast CT images were obtained for attenuation correction and fusion with emission images. CT image s were performed without oral or intravenous contrast and are not sensitive for parenchymal lesions. A series of overlapping emission PET images were obtained. Images reviewed and manipulated at [facility] work station by the radiologist. Images stored on PACS. LIMITATIONS: None. FINDINGS: HEAD AND NECK: No areas of abnormal metabolic activity in the soft tissues of the head and neck. CHEST: No areas of abnormal metabolic activity in the chest. ABDOMEN AND PELVIS: No areas of abnormal metabolic activity in the abdomen or pelvis. Expected physi ologic activity is present in the genitourinary system and bowel. PROXIMAL LOWER EXTREMITIES: No areas of abnormal metabolic activity in the soft tissues of the lower extremities. BONES: No abnormal metabolic activity in the visualized skeleton. ADDITIONAL CT FINDINGS: No other findings than those reported on recent CT chest abdomen pelvis 019. OTHER: No other significant findings. IMPRESSION: No evidence of metastatic disease. TECHNICAL DOCUMENTATION: JOB ID: [id number] [employer]- All Rights Reserved Reading location - IP/workstation name: [email or web address]
== END ==
LOC: RAD 15:53
PROVIDERS: ATTEND Physician Assistant Medical
DX: C24.0 Malignant neoplasm of extrahepatic bile duct (principal)
CPT/HCPCS: 78815; A9552

== ENCOUNTER → 2018-11-12 | Outpatient (CLI) | payer OTHER ==
--- NOTE | 2018-11-12 14:03 | WOMENS IMAGING REPORT ---
EXAM DESCRIPTION: 3D SCREENING MAMMO BILAT COMPLETED DATE/TIME: 11/12/2018 12:15 pm REASON FOR STUDY: Z12.31 SCREENING MAMMO Z12.31 ENCNTR SCREEN MAMMOGRAM FOR MALIGNANT NEOPLASM OF B RE COMPARISON: 2018 EXAM PARAMETERS: Views: Standard craniocaudal and mediolateral oblique views of each breast recorded using digital acquisition and breast tomosynthesis. Read with the assistance of CAD. .[facility] - R2 Class A Lineman Version 9.2 LIMITATIONS: None. FINDINGS: No suspicious masses, suspicious calcifications or architectural distortion. No areas of c oncern. IMPRESSION: NEGATIVE MAMMOGRAM. BIRADS 1. BREAST DENSITY: b. There are scattered areas of fibroglandular density. BIRAD: ASSESSMENT: 1 NEGATIVE RECOMMENDATION: ROUTINE SCREENING Please continue yearly bilateral screening mammography/tomosynthesis in November 2019. COMMENT: The patient has been notified of the results by letter per MQSA requirements. Additional no tification policies are in place for contacting patient with suspicious or incomplete findings. Quality ID #[id number]: The [employer] recommends an annual screening mammogram for women aged 40 years or over. This facility utilizes a reminder system to ensure that all patients receive reminder letters, and/or direct phone calls for appointments. This includes reminders for routine scr eening mammograms, diagnostic mammograms, or other Breast Imaging Interventions when appropriate. Th is patient will be placed in the appropriate reminder system. TECHNICAL DOCUMENTATION: FINDING NUMBER: (1) ASSESSMENT: (1) JOB ID: [id number] [employer]- All Rights Reserved Reading location - IP/workstation name: [email or web address]
== END ==
LOC: WI 10:50
PROVIDERS: ATTEND Internal Medicine
DX: Z12.31 Encounter for screening mammogram for malignant neoplasm of breast (principal)
CPT/HCPCS: 77063; 77067

== ENCOUNTER → 2018-11-27 | Outpatient (CLI) | payer OTHER ==
--- NOTE | 2018-11-27 15:23 | RADIOLOGY REPORT (SQ) ---
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 Oral contrast. Images reviewed with lung, soft tissue, and bone win dows. Reconstructed coronal and sagittal MPR images reviewed. Delayed images for evaluation of the ur inary system also acquired. All images stored on PACS. All CT scanners at this facility use dose modulation, iterative reconstruction, and/or weight based d osing when appropriate to reduce radiation dose to as low as reasonably achievable (ALARA). [facility]: Dose Right [facility]: CareDose [facility]: Dose Right [facility]: Teradose 4D [facility]: [employer] CONTRAST TYPE AND DOSE: contrast/concentration: Isovue 350.00 mg/ml; Total Contrast Delivered: 83.0 ml; Total Saline Delivered: 69.0 ml RENAL FUNCTION: Creatinine 0.4 RADIATION DOSE: CT Rad equipment meets quality standard of care and radiation dose reduction techniq ues were employed. CTDIvol: 5.8 - 8.0 mGy. DLP: 1059 mGy-cm.. LIMITATIONS: None. FINDINGS: LOWER CHEST: See separate report of the CT of the chest. LIVER: Normal size. No masses. No dilated ducts. SPLEEN: Mild splenomegaly. PANCREAS: No masses. No significant calcifications. No adjacent inflammation or peripancreatic fluid collections. Pancreatic duct not dilated. GALLBLADDER: Surgically absent. Multiple surgical clips are seen in the krysta hepatis. ADRENAL GLANDS: No significant masses or asymmetry. RIGHT KIDNEY AND URETER: No solid masses. Nonobstructing upper calyceal calculus. No hydronephros is or hydroureter. LEFT KIDNEY AND URETER: 24.4 mm mass in the upper pole, slightly larger than on the earlier study. Small nonobstructing lower calyceal calculus. No hydronephrosis or hydroureter. AORTA AND VESSELS: No aneurysm. No dissection. Renal arteries, SMA, celiac without stenosis. RETROPERITONEUM: No retroperitoneal adenopathy, hemorrhage or masses. BOWEL AND PERITONEAL CAVITY: No masses or inflammatory changes. No free fluid or peritoneal masses. APPENDIX: Normal. PELVIS: No mass. No free fluid. Normal bladder. ABDOMINAL WALL: No masses. No hernias. BONES: No significant or acute findings. OTHER: No other significant finding. IMPRESSION: 1. Stable findings in the right upper quadrant. Surgical changes. 2. No abdominal or pelvic metastases. 3. Left upper pole renal mass is slightly larger. 4. Mild splenomegaly. TECHNICAL DOCUMENTATION: JOB ID: [id number] Quality ID # [id number]: Final reports with documentation of one or more dose reduction techniques (e.g., Au tomated exposure control, adjustment of the mA and/or kV according to patient size, use of iterative reconstruction technique) 2010 [employer]- All Rights Reserved Reading location - IP/workstation name: [email or web address]
--- NOTE | 2018-11-27 16:33 | RADIOLOGY REPORT (SQ) ---
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 TECHNIQUE: CT scan of the chest performed using helical scanning technique with dynamic intravenous contrast injection. Images reviewed with lung, soft tissue and bone windows. Reconstructed coronal and sagittal MPR and MIP images reviewed. All images stored on PACS. All CT scanners at this facility use dose modulation, iterative reconstruction, and/or weight based d osing when appropriate to reduce radiation dose to as low as reasonably achievable (ALARA). [facility]: Dose Right [facility]: CareDose [facility]: Dose Right [facility]: Teradose 4D [facility]: [employer] CONTRAST TYPE AND DOSE: 83 mL of Isovue 350. RENAL FUNCTION: Creatinine 0.4 milligrams/deciliter. LIMITATIONS: None. FINDINGS: LUNGS AND PLEURA: The trachea and main bronchi are patent. There is upper lobe predominan t centrilobular emphysema. The parenchymal bands in the lower lobes are unchanged. The subpleural n odules in the right lower lobe (images 62 and 72 of series 6) are unchanged. There is no new or enla rging pulmonary nodule. There is no alveolar consolidation / ground-glass opacification. There is n o pleural effusion, thickening or calcification. HILAR AND MEDIASTINAL STRUCTURES: No enlarged mediastinal or hilar adenopathy. HEART AND VASCULAR STRUCTURES: No thoracic aortic aneurysm. Unchanged cardiomegaly. No pericardial effusion. Mild atherosclerotic calcification of the coronary arteries. HARDWARE: The tip of the left subclavian vein approach single-lumen port terminates within the SVC. UPPER ABDOMEN: See separate report of the CT of the abdomen. THYROID AND OTHER SOFT TISSUES: No masses or adenopathy. BONES: Accentuated kyphotic curvature of the thoracic spine. No fracture or osseous lesion. OTHER: No other finding. IMPRESSION: No evidence of metastatic disease in the thorax. TECHNICAL DOCUMENTATION: JOB ID: [id number] Quality ID # [id number]: Final reports with documentation of one or more dose reduction techniques (e.g., Au tomated exposure control, adjustment of the mA and/or kV according to patient size, use of iterative reconstruction technique) 2010 [employer]- All Rights Reserved Reading location - IP/workstation name: [email or web address]
== END ==
LOC: RAD 07:45
PROVIDERS: ATTEND Internal Medicine
DX: C24.0 Malignant neoplasm of extrahepatic bile duct (principal)
CPT/HCPCS: 71260; 74177; 82565

== ENCOUNTER → 2019-03-01 | Outpatient (CLI) | payer OTHER ==
--- NOTE | 2019-03-01 13:15 | RADIOLOGY REPORT (SQ) ---
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 Images reviewed with lung, soft tissue and bone windows. Reconstructed coronal a nd sagittal MPR images reviewed. All images stored on PACS. All CT scanners at this facility use dose modulation, iterative reconstruction, and/or weight based d osing when appropriate to reduce radiation dose to as low as reasonably achievable (ALARA). [facility]: Dose Right [facility]: CareDose [facility]: Dose Right [facility]: Teradose 4D [facility]: [employer] RADIATION DOSE: CT Rad equipment meets quality standard of care and radiation dose reduction techniq ues were employed. CTDIvol: 5.4 - 8.6 mGy. DLP: 1079 mGy-cm. . LIMITATIONS: None. FINDINGS: AXILLAE: No adenopathy. CHEST WALL: No masses. No subcutaneous air. LUNGS: Mild centrilobular emphysema in the upper lobes. There are couple of tiny subpleural nodules in the right lower lobe that are stable. There is mild linear atelectasis in the bases. There is no new pulmonary mass. PLEURA: No effusions. No calcifications. THYROID: No masses or significant asymmetry. HILAR AND MEDIASTINAL STRUCTURES: No identified masses or abnormal nodes. AORTA AND GREAT VESSELS: No aneurysm. No dissection. PULMONARY ARTERIES: No identified pulmonary emboli. Study not optimized for the pulmonary arteries. HEART: No pericardial effusion. HARDWARE AND LIFELINES: None. BONES: No significant finding. OTHER: No other significant finding. IMPRESSION: There is no evidence of recurrent or metastatic neoplasm in the thorax. Mild pulmonary emphysema. COMPARISON: None. RADIATION DOSE: CT Rad equipment meets quality standard of care and radiation dose reduction techniq ues were employed. CTDIvol: 5.4 - 8.6 mGy. DLP: 1079 mGy-cm. mGy. TECHNIQUE: CT scan of the abdomen and pelvis performed with intravenous and oral contrast using gina abelino scanning technique with dynamic intravenous contrast injection. Images reviewed with lung, soft tissue and bone windows. Reconstructed coronal and sagittal MPR images reviewed. Delayed images for evaluation of the urinary system also acquired and evaluated. All images stored on PACS. All CT scanners at this facility use dose modulation, iterative reconstruction, and/or weight based d osing when appropriate to reduce radiation dose to as low as reasonably achievable (ALARA). [facility]: Dose Right [facility]: [employer] [facility]: Dose Right [facility]: Teradose 4D [facility]: [employer] FINDINGS: LIVER: Normal size. No masses. No dilated ducts. SPLEEN: Splenomegaly. PANCREAS: No masses. No significant calcifications. No adjacent inflammation or peripancreatic flui d collections. Pancreatic duct not dilated. GALLBLADDER: Surgically absent. Multiple surgical clips are present in the krysta hepatis. ADRENAL GLANDS: No significant masses or asymmetry. RIGHT KIDNEY AND URETER: No solid masses. No significant calcifications. No hydronephrosis or hyd roureter. LEFT KIDNEY AND URETER: What may represent a slightly hyperdense cyst is seen in the upper pole the l eft kidney. This is unchanged. No significant calcifications. No hydronephrosis or hydroureter. AORTA AND VESSELS: No aneurysm. No dissection. Renal arteries, SMA, celiac without stenosis. RETROPERITONEUM: No retroperitoneal adenopathy, hemorrhage or masses. LARGE AND SMALL BOWEL: No dilatation. No masses. No wall thickening. APPENDIX: Not identified. ABDOMINAL WALL: On image 20 series 3 there is a 15 mm nodule in the abdominal wall just to the left o f the midline. This measures 6 mm on the earlier study. PERITONEAL CAVITY: On image 20 series 3 there is an 18.1 mm a peritoneal mass anteriorly on the right side. This measured 14.7 mm on the prior study. There is a 15.6 mm mass adjacent to the left lobe of the liver on image 19. There is a 19 mm mass adjacent to the colon anteriorly on the right on palmira ge 27. There is a 30.6 mm mass that may arise from the wall the colon on the right on image 36. Ant eriorly in the midline on the same image there is a 14.3 mm mass. The 21.5 mm mass is present arisin g from the wall the small bowel on image 63 series 8. PELVIS: No mass or free fluid. Normal bladder. BONES: No significant or acute findings. OTHER: No other significant finding. IMPRESSION: 1. There are intraperitoneal and abdominal wall metastases in the abdomen as described. Some of these can be identified on the earlier study and are larger. 2. Splenomegaly. 3. Stable low-density lesion arising from the upper pole the left kidney. This may represent a slig htly hyperdense cyst. COMMENT: Pertinent findings on the imaging study reported as a CRITICAL RESULT to MICHA Glover at13:08 on 03/01/2019. Category of Critical Result: Abdominal metastases. TECHNICAL DOCUMENTATION: JOB ID: [id number] Quality ID # 436: Final reports with documentation of one or more dose reduction techniques (e.g., Au tomated exposure control, adjustment of the mA and/or kV according to patient size, use of iterative reconstruction technique) 2010 [employer]- All Rights Reserved Reading location - IP/workstation name: [email or web address]
== END ==
LOC: RAD 08:31
PROVIDERS: ATTEND Internal Medicine
DX: C24.0 Malignant neoplasm of extrahepatic bile duct (principal)
CPT/HCPCS: 71260; 74177; 82565

== ENCOUNTER → 2019-03-12 | Outpatient (CLI) | payer OTHER ==
--- NOTE | 2019-03-13 13:56 | RADIOLOGY REPORT (SQ) ---
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 RADIONUCLIDE AND DOSE: 9 mCi F18 FDG The route of agent administration: Intravenous FASTING BLOOD SUGAR: 137 mg/dl CONTRAST TYPE AND DOSE: No CT contrast given. TECHNIQUE: Blood glucose level was verified. Above dose of FDG was injected intravenously. 2-D seg mented attenuation correction images were obtained from the base of the skull to the midthighs. Nonc ontrast CT images were obtained for attenuation correction and fusion with emission images. CT image s were performed without oral or intravenous contrast and are not sensitive for parenchymal lesions. A series of overlapping emission PET images were obtained. Images reviewed and manipulated at [facility] work station by the radiologist. Images stored on PACS. LIMITATIONS: None. FINDINGS: HEAD AND NECK: No areas of abnormal metabolic activity in the soft tissues of the head and neck. CHEST: No areas of abnormal metabolic activity in the chest. ABDOMEN AND PELVIS: The liver demonstrates heterogeneous non focal FDG uptake with an average SUV of 2.2. The area of masslike thickening that involves the 2nd portion of the duodenum demonstrates avid FDG uptake with a maximum SUV of 9.3. There are several nodules in the abdomen that demonstrate tameka brian degrees of FDG uptake and are unchanged in size and number from the 03/01/2019 CT; for reference the 2.7 x 2.5 cm nodule adjacent to a loop of ascending colon in the right lower quadrant (image 151 of series 3) has a maximum SUV of 9.2, the 12 mm mesenteric implants or lymph node on image 168 of se nikky 3) has a maximum SUV of 6.7, and the 1.6 x 1.4 cm nodule in the linea alba (image 132 of series 3) has a maximum SUV of 5.1. PROXIMAL LOWER EXTREMITIES: No areas of abnormal metabolic activity in the soft tissues of the lower extremities. BONES: No areas of abnormal metabolic activity in the imaged axial and appendicular skeleton. ADDITIONAL CT FINDINGS: No acute findings to report. OTHER: No other findings. IMPRESSION: Hypermetabolic intra-abdominal and abdominal wall metastases. TECHNICAL DOCUMENTATION: JOB ID: [id number] [employer]- All Rights Reserved Reading location - IP/workstation name: [email or web address]
== END ==
LOC: RAD 10:37
PROVIDERS: ATTEND Internal Medicine
DX: C24.0 Malignant neoplasm of extrahepatic bile duct (principal); C79.89 Secondary malignant neoplasm of other specified sites
CPT/HCPCS: 78815; A9552

== ENCOUNTER 2019-03-22 23:28 | Inpatient (IN) | payer OTHER ==
[2019-03-23] MEDS ORDERED: NORMAL SALINE 1000 ML 1,000 ML IV ONE (00:10)
--- NOTE | 2019-03-23 00:11 | ER Document Report ---
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 She states that she often has the side effects of chemotherapy but she was concerned given the ongoing cramps in the upper abdomen and the nausea that she might of had something more going on than side effects. She called Dr. Sheikh who advised if she did not improve after drinking some fluids and using Zofran that she should report to the emergency department. I have treated and performed a rapid initial assessment of this patient. A comprehensive ED assessment and evaluation of the patient, analysis of test results and completion of medical decision making process will be conducted by additional ED providers. PHYSICAL EXAMINATION: GENERAL: Well-appearing, well-nourished and in no acute distress. A&Ox4. Answers questions appropriately. TRAVEL OUTSIDE OF THE [place] IN LAST 30 DAYS: No - Related Data Allergies/Adverse Reactions: Penicillins Adverse Reaction (Severe, Verified 05/29/18 15:26) WHEEZE metronidazole [From Flagyl] Adverse Reaction (Verified 05/29/18 15:26) Home Medications: avaline, norvasc, zofran, phenergan, spiriva, advair, xanax Past Medical History - Social History Family history: Reviewed & Not Pertinent - Past Medical History Cardiac Medical History: Reports: Hx Hypertension Denies: Hx Coronary Artery Disease, Hx Heart Attack Pulmonary Medical History: Reports: Hx Bronchitis, Hx COPD, Hx Pneumonia Denies: Hx Asthma Neurological Medical History: Denies: Hx Cerebrovascular Accident, Hx Seizures Endocrine Medical History: Reports: Hx Diabetes Mellitus Type 2 - borderline Renal/ Medical History: Denies: Hx Peritoneal Dialysis Musculoskeltal Medical History: Denies Hx Arthritis Past Surgical History: Reports: Hx Orthopedic Surgery - left foot/ titanium plates placed, Hx Tonsillectomy, Other - Radical cholecystectomy, liver resection, periportal lymphadenectomy. Denies: Hx Hysterectomy - Immunizations Hx Diphtheria, Pertussis, Tetanus Vaccination: Yes Physical Exam - Vital signs Vitals: Temp Pulse Resp BP Pulse Ox 97.6 F 105 H 20 129/74 H 97 02/14/20 23:35 03/22/19 23:35 03/22/19 23:35 03/22/19 23:35 03/22/19 23:35 Course - Vital Signs Vital signs: Temp Pulse Resp BP Pulse Ox 97.6 F 105 H 20 129/74 H 97 03/22/19 23:35 03/22/19 23:35 03/22/19 23:35 03/22/19 23:35 03/22/19 23:35 Doctor's Discharge - Discharge Referrals: MICHA CONNER MD [Primary Care Provider] - Follow up as needed
[2019-03-23 00:38] LABS: APPEARANCE,URINE SLIGHTLY-CLOUDY; BILIRUBIN,URINE NEGATIVE (NEGATIVE); COLOR,URINE YELLOW; GLUCOSE, URINE NEGATIVE (NEGATIVE); KETONES,URINE NEGATIVE (NEGATIVE); LEUKOCYTE ESTERASE,URINE NEGATIVE (NEGATIVE); NITRITE,URINE NEGATIVE (NEGATIVE); PROTEIN,URINE NEGATIVE (NEGATIVE)
[2019-03-23 03:12] LABS: ABSOLUTE EOSINOPHILS # (AUTO) 0.1 10^3/uL (0.0-0.6); ABSOLUTE LYMPHOCYTES (AUTO) 1.5 10^3/uL (0.5-4.7); ABSOLUTE MONOCYTES (AUTO) 0.1 10^3/uL (0.1-1.4); ABSOLUTE NEUT (AUTO) 4.3 10^3/uL (1.7-8.2); BASOPHILS % (AUTO) 0.8 % (0-2); EOSINOPHILS % (AUTO) 1.6 % (0-6); HEMATOCRIT 34.4 % (36.0-47.0); LYMPHOCYTES % (AUTO) 25.4 % (13-45); MEAN CORPUSCULAR HEMOGLOBIN 30.8 pg (27.0-33.4); MEAN CORPUSCULAR HGB CONC 34.8 g/dL (32.0-36.0); MEAN CORPUSCULAR VOLUME 89 fl (80-97); MONOCYTES % (AUTO) 1.4 % (3-13); PLATELET COUNT 127 10^3/uL (150-450); RED BLOOD COUNT 3.88 10^6/uL (3.72-5.28); RED CELL DISTRIBUTION WIDTH 13.8 % (11.5-14.0); SEGMENTED NEUTROPHILS % (AUTO) 70.8 % (42-78); TOTAL CELLS COUNTED % (AUTO) 100 %
[2019-03-23] MEDS ORDERED: DIAZEPAM INJ 10 MG/2 ML DISP.SYRIN IV ONE ×2 (03:12→06:36)
[2019-03-23] MEDS ORDERED: ONDANSETRON HCL INJ/PF 4 MG/2 ML SDV IV ONE (03:21)
[2019-03-23 03:28] LABS: ALBUMIN 3.5 g/dL (3.5-5.0); ALKALINE PHOSPHATASE 231 U/L (38-126); ASPARTATE AMINO TRANSFERASE 69 U/L (14-36); BILIRUBIN,DIRECT 0.1 mg/dL (0.0-0.4); BILIRUBIN,TOTAL 0.8 mg/dL (0.2-1.3); BLOOD UREA NITROGEN 11 mg/dL (7-20); CALCIUM 8.8 mg/dL (8.4-10.2); GLUCOSE 105 mg/dL (75-110); POTASSIUM 3.1 mmol/L (3.6-5.0)
[2019-03-23 03:34] LABS: CARBON DIOXIDE 37 mmol/L (22-30); CHLORIDE 94 mmol/L (98-107)
[2019-03-23 03:35] LABS: ANION GAP 3 (5-19)
--- NOTE | 2019-03-23 04:48 | ER Document Report ---
Entered by KORY SOW SCRIBE 03/23/19 0301 Acting as scribe for:ZUNILDA MOSHER IV, MD ED GI/ - General Information source: Patient TRAVEL OUTSIDE OF THE [place] IN LAST 30 DAYS: No - Related Data Home Medications: avaline, norvasc, zofran, phenergan, spiriva, advair, xanax <ZUNILDA MOSHER IV - Last Filed: 03/23/19 06:59> <JACOB SHEPHERD - Last Filed: 03/23/19 08:31> - General Chief Complaint: Abdominal Pain Stated Complaint: ABDOMINAL PAIN Time Seen by Provider: 03/23/19 02:59 Primary Care Provider: MICHA CONNER MD [ACTIVE STAFF] - Follow up as needed Notes: This 64 year old female patient with a past medical history of stage IV gallbladder status post cholecystectomy with mets currently on chemotherapy presents to the ED today with complaints of upper abdominal cramps that began prior to arrival. Patient states that she normally has the side effects of chemotherapy, but was concerned about the ongoing cramps and intermittent nausea that seems to be more severe than usual. Patient reports dehydration and poor appetite, stating that eating makes the cramps worse. Patient also reports that her last bowel movement was this morning and that is was hard and dark-colored. Patient notes that she took some milk of magnesia, a stool softener, 8 mg Zofran, and Xanax. Patient states that she spoke with Dr. Sheikh who advised her to come to the ED if she did not improve after drinking some fluids and taking Zofran. (ZUNILDA MOSHER IV) - Related Data Allergies/Adverse Reactions: Penicillins Adverse Reaction (Severe, Verified 05/29/18 15:26) WHEEZE metronidazole [From Flagyl] Adverse Reaction (Verified 05/29/18 15:26) Past Medical History - Social History Smoking Status: Never Smoker Cigarette use (# per day): No Chew tobacco use (# tins/day): No Smoking Education Provided: No Lives with: Spouse/Significant other Family History: Reviewed & Not Pertinent Patient has suicidal ideation: No Patient has homicidal ideation: No - Past Medical History Cardiac Medical History: Reports: Hx Hypertension Pulmonary Medical History: Reports: Hx Bronchitis, Hx COPD, Hx Pneumonia Endocrine Medical History: Reports: Hx Diabetes Mellitus Type 2 - borderline Past Surgical History: Reports: Hx Orthopedic Surgery - left foot/ titanium plates placed, Hx Tonsillectomy, Other - Radical cholecystectomy, liver resectio n, periportal lymphadenectomy - Immunizations Hx Diphtheria, Pertussis, Tetanus Vaccination: Yes Hx Pneumococcal Vaccination: 02/06/13 <ZUNILDA MOSHER IV - Last Filed: 03/23/19 06:59> Review of Systems - Review of Systems Constitutional: See HPI, Other - Dehydration EENT: No symptoms reported Cardiovascular: No symptoms reported Respiratory: No symptoms reported Gastrointestinal: See HPI, Abdominal pain, Nausea, Vomiting, Poor appetite, Last bowel movement - This morning; hard and dark-colored stool Genitourinary: No symptoms reported Female Genitourinary: No symptoms reported Musculoskeletal: No symptoms reported Skin: No symptoms reported Hematologic/Lymphatic: No symptoms reported Neurological/Psychological: No symptoms reported -: Yes All other systems reviewed and negative <ZUNILDA MOSHER IV - Last Filed: 03/23/19 06:59> Physical Exam - Vital signs Interpretation: Tachycardic - General General appearance: Alert, Other - Appears frail. - HEENT Head: Normocephalic, Atraumatic Eyes: Normal Pupils: PERRL - Respiratory Respiratory status: No respiratory distress Chest status: Nontender Breath sounds: Normal Chest palpation: Normal - Cardiovascular Rhythm: Tachycardia - Slightly Heart sounds: Normal auscultation Murmur: No Friction rub: No Gallop: None auscultated - Abdominal Inspection: Normal Distension: No distension Bowel sounds: Hypoactive Tenderness: Nontender - Abdomen soft Organomegaly: No organomegaly - Back Back: Normal, Nontender - Extremities General upper extremity: Normal inspection General lower extremity: Normal inspection - Neurological Neuro grossly intact: Yes - Psychological Associated symptoms: Normal affect, Normal mood - Skin Skin Temperature: Warm Skin Moisture: Dry Skin Color: Normal <ZUNILDA MOSHER IV - Last Filed: 03/23/19 06:59> - Vital signs Vitals: Temp Pulse Resp BP Pulse Ox 97.6 F 105 H 20 129/74 H 97 03/22/19 23:35 03/22/19 23:35 03/22/19 23:35 03/22/19 23:35 03/22/19 23:35 Course - Laboratory Result Diagrams: 03/23/19 02:55 03/23/19 02:55 - Consults dr. yeung Time consulted: 07:05 Consulted provider: will come to ER <ZUNILDA MOSHER IV - Last Filed: 03/23/19 06:59> - Laboratory Result Diagrams: 03/23/19 02:55 03/23/19 02:55 <JACOB SHEPHERD - Last Filed: 03/23/19 08:31> - Re-evaluation Re-evalutation: 03/23/19 08:30 I discussed this patient with the general surgeon oracle drm consultant, Dr. Yeung, he states that the patient should be admitted to the hospitalist service for medical management as she is not a surgical candidate. The hospitalist was contacted and patient will be admitted to the medical floor for further management of her abdominal pain nausea and vomiting. (JACOB SHEPHERD) - Vital Signs Vital signs: Temp Pulse Resp BP Pulse Ox 98.3 F 91 16 126/64 H 95 03/23/19 06:06 03/23/19 06:06 03/23/19 06:06 03/23/19 06:06 03/23/19 06:06 - Laboratory Laboratory results interpreted by me: 03/23/19 03/23/19 03/23/19 00:20 02:55 02:55 Hct 34.4 L Plt Count 127 L [place] % (Auto) 1.4 L Sodium 133.8 L Potassium 3.1 L Chloride 94 L Carbon Dioxide 37 H Anion Gap 3 L Creatinine 0.50 L AST 69 H ALT 126 H Alkaline Phosphatase 231 H Total Protein 6.0 L Urine Urobilinogen 4.0 H - Consults dr. yeung Reason for consultation: 03/23/19 07:06 sbo (ZUNILDA MOSHER IV) Discharge <ZUNILDA MOSHER IV - Last Filed: 03/23/19 06:59> - Discharge Admitting Provider: Kasandra (Hospitalist) Unit Admitted: Medical Floor <JACOB SHEPHERD - Last Filed: 03/23/19 08:31> - Discharge Clinical Impression: Metastasis from gallbladder cancer, Partial small bowel obstruction Nausea and vomiting Qualifiers: Vomiting type: unspecified Vomiting Intractability: unspecified Qualified Code(s): R11.2 - Nausea with vomiting, unspecified Abdominal pain Qualifiers: Abdominal location: unspecified location Qualified Code(s): R10.9 - Unspecified abdominal pain Condition: Good Disposition: ADMITTED INPATIENT Referrals: MICHA CONNER MD [ACTIVE STAFF] - Follow up as needed I personally performed the services described in the documentation, reviewed and edited the documentation which was dictated to the scribe in my presence, and it accurately records my words and actions.
[2019-03-23] MEDS ORDERED: POTASSIUM CHLORIDE 10 MEQ TABLET.ER PO ONE (06:34)
--- NOTE | 2019-03-23 06:45 | RADIOLOGY REPORT (SQ) ---
CT abdomen and pelvis with contrast on 03/23/2019 at 6:16 AM CLINICAL INDICATION: History of metastatic abdominal cancer, worsening generalized abdominal pain TECHNIQUE: Multiple axial images are obtained throughout the abdomen and pelvis following the administration of IV and oral contrast. 87 mL of Omnipaque 350 contrast was administered intravenously. This exam was performed according to our departmental dose-optimization program, which includes automated exposure control, adjustment of the mA and/or kV according to patient size and/or use of iterative reconstruction technique. Total DLP is 1710.92 mGy*cm. COMPARISON: PET/CT from 03/12/[address] abdomen and pelvis with contrast from 03/01/2019 FINDINGS: Abdomen: There is mild bibasilar atelectasis. The patient is status post cholecystectomy. There are nonobstructing right greater than left renal stones . Bilateral renal cysts are noted. Solid abdominal organs are otherwise unremarkable. Vascular calcifications are noted. There is no abdominal adenopathy. There are stable peritoneal implants and abdominal wall metastatic lesions again noted. Abdominal wall metastatic lesion is noted in the midline anteriorly on image 26 of series 3. One of the peritoneal implants is well visualized in the anterior midline peritoneum on axial image 43 of series 3. There are new dilated fluid-filled loops of small bowel in the midabdomen and pelvis with decompressed terminal ileum. Transition point appears to be in the distal ileum in the pelvis and may be related to adhesion. There is [id number] amount of ascites in the abdomen. There is no free air. Pelvis: Small amount of free fluid is noted in the pelvis. Pelvic portion of the GI tract is otherwise unremarkable. No pelvic adenopathy is noted. No acute bony abnormality is noted. IMPRESSION: 1. Findings consistent with development of small bowel obstruction that may be related to an adhesion with transition point in the distal most ileum. 2. New ascites in the abdomen and pelvis that may be related to the obstruction. 3. Stable peritoneal implants and abdominal wall metastatic disease.
--- NOTE | 2019-03-23 07:54 | RADIOLOGY REPORT (SQ) ---
Abdomen single view on 03/23/2019 at 7:35 AM CLINICAL INDICATION: NG tube placement COMPARISON: CT from earlier the same date FINDINGS: NG tube tip extends into the body of the stomach in good position. There are dilated loops of small bowel consistent with small bowel obstruction. Contrast is noted in the kidneys from recent CT. IMPRESSION: NG tube in good position in the stomach.
--- NOTE | 2019-03-23 08:02 | PDOC CONSULTATION ---
Consultation Consult Date: 03/23/19 Provider Consulted: SURGICAL SURGICALIST MD Consult reason:: Nausea, vomiting, abdominal cramping. History of Present Illness Admission Date/PCP: JASWANT EDWARDS MD History of Present Illness: CARMEN RUSSO is a 64 year old female seen in consultation at the request of the emergency department. The patient has a history of metastatic gallbladder cancer. She has abdominal wall and peritoneal implants. The patient was recently restarted on chemotherapy (gemcitabine and cisplatin). Patient's first dose of this was Monday. Monday she began having nausea, vomiting, and abdominal pain. Her symptoms progressed, and they are now severe. The patient presented to the emergency department with complaints of severe nausea and vomiting with abdominal cramping. She "cannot keep anything down". The patient continues to have bowel movements. She had a hard bowel movement yesterday, and had a loose, runny, liquidy bowel movement today (in the ER). Surgery was consulted to rule out small bowel obstruction. The patient denies chest pain, shortness of breath, fevers, chills, melena, hematochezia, hematemesis, dizziness, blurry vision, headache. She does report abdominal cramping, rated 6 out of 10. It is constant. Nothing makes it better or worse. Her nausea and vomiting is constant. She cannot keep anything down, even water. Past Medical History Cardiac Medical History: Reports: Hypertension Denies: Coronary Artery Disease, Myocardial Infarction Pulmonary Medical History: Reports: Bronchitis, Chronic Obstructive Pulmonary Disease (COPD), Pneumonia Denies: Asthma Neurological Medical History: Denies: Seizures Endocrine Medical History: Reports: Diabetes Mellitus Type 2 - borderline Malignancy Medical History: Reports: Other - Metastatic gallbladder cancer with peritoneal and abdominal wall implants. Musculoskeltal Medical History: Denies: Arthritis Hematology: Reports: Anemia Past Surgical History Past Surgical History: Reports: Orthopedic Surgery - left foot/ titanium plates placed, Tonsillectomy, Other - Radical cholecystectomy, liver resection, periportal lymphadenectomy Denies: Hysterectomy Social History Lives with: Spouse/Significant other Smoking Status: Never Smoker Frequency of Alcohol Use: None Drugs: None Hx Prescription Drug Abuse: No Family History Family History: Reviewed & Not Pertinent Parental Family History Reviewed: Yes Children Family History Reviewed: Yes Sibling(s) Family History Reviewed.: Yes Medication/Allergy Home Medications: Albuterol Sulfate [Albuterol Sulfate 2.5mg/3 mL] 2.5 mg IH Q6HP PRN 01/14/12 Metformin HCl [Metformin HCl ER] 500 mg PO BIDBS 03/06/18 Amlodipine Besylate [Norvasc 5 mg Tablet] 5 mg PO DAILY #30 tablet 04/04/18 Fluticasone/Salmeterol [Advair 250-50 Diskus 14 Dose/Diskus] 1 inh IH Q12 #1 inhaler 04/04/18 Irbesartan/Hydrochlorothiazide [Avalide 300-12.5 mg Tablet] 1 each PO DAILY #30 tablet 04/04/18 Potassium Chloride [Klor-Con M20] 40 meq PO DAILY #60 tab.er.prt 04/04/18 Tiotropium [place] [Spiriva Respimat] 2 puff IH DAILY #1 mist.inhal 04/04/18 Alprazolam [Xanax 0.5 mg Tablet] 0.5 mg PO Q6HP PRN 05/28/18 Ondansetron HCl [Zofran 8 mg Tablet] 8 mg PO Q8HP PRN 05/28/18 Omeprazole Magnesium [Prilosec Otc] 20 mg PO DAILY 05/29/18 Promethazine HCl [Phenergan 25 mg Tablet] 25 mg PO ASDIR PRN 05/29/18 Allergies/Adverse Reactions: Penicillins Adverse Reaction (Severe, Verified 05/29/18 15:26) WHEEZE metronidazole [From Flagyl] Adverse Reaction (Verified 05/29/18 15:26) Review of Systems Constitutional: PRESENT: anorexia. ABSENT: chills, fatigue, fever(s) Eyes: ABSENT: visual disturbances Ears: ABSENT: hearing changes Nose, Mouth, and Throat: ABSENT: sore throat Cardiovascular: ABSENT: chest pain Respiratory: ABSENT: cough, dyspnea Gastrointestinal: PRESENT: abdominal pain, bloating, constipation, diarrhea, nausea, vomiting Integumentary: ABSENT: pruritus, rash Neurological: ABSENT: confusion, convulsions, dizziness Psychiatric: ABSENT: anxiety, depression Endocrine: ABSENT: cold intolerance, heat intolerance Hematologic/Lymphatic: ABSENT: easy bleeding, easy bruising Physical Exam Vital Signs: Temp Pulse Resp BP Pulse Ox 98.3 F 91 16 126/64 H 95 03/23/19 06:06 03/23/19 06:06 03/23/19 06:06 03/23/19 06:06 03/23/19 06:06 Intake & Output 03/22/19 03/23/19 03/24/19 06:59 06:59 06:59 Intake Total 1000 Balance 1000 Weight 76.6 kg General appearance: PRESENT: no acute distress, cooperative Head exam: PRESENT: atraumatic, normocephalic Eye exam: PRESENT: EOMI, PERRLA. ABSENT: scleral icterus Mouth exam: PRESENT: neck supple Neck exam: ABSENT: meningismus, tenderness, thyromegaly, tracheal deviation Respiratory exam: PRESENT: clear to auscultation christian, unlabored. ABSENT: chest wall tenderness, tachypnea Cardiovascular exam: PRESENT: RRR Pulses: PRESENT: normal radial pulses Vascular exam: PRESENT: normal capillary refill. ABSENT: pallor GI/Abdominal exam: PRESENT: soft. ABSENT: distended, firm, guarding, rigid, tenderness Rectal exam: PRESENT: deferred Extremities exam: ABSENT: clubbing Musculoskeletal exam: ABSENT: deformity Neurological exam: PRESENT: alert, awake, oriented to person, oriented to place, oriented to time, oriented to situation, CN II-XII grossly intact Psychiatric exam: ABSENT: agitated, anxious, depressed Focused psych exam: ABSENT: delusional Skin exam: ABSENT: cyanosis, erythema, jaundice Results Laboratory Results: 03/23/19 02:55 03/23/19 02:55 03/23/19 03/23/19 03/23/19 00:20 02:55 02:55 WBC 6.0 RBC 3.88 Hgb 12.0 Hct 34.4 L MCV 89 MCH 30.8 MCHC 34.8 RDW 13.8 Plt Count 127 L Seg Neutrophils % 70.8 Sodium 133.8 L Potassium 3.1 L Chloride 94 L Carbon Dioxide 37 H Anion Gap 3 L BUN 11 Creatinine 0.50 L Est GFR ( Amer) > 60 Glucose 105 Calcium 8.8 Total Bilirubin 0.8 AST 69 H Alkaline Phosphatase 231 H Total Protein 6.0 L Albumin 3.5 Lipase 24.1 Urine Color YELLOW Urine Appearance SLIGHTLY-CLOUDY Urine pH 7.0 Ur Specific [place] 1.010 Urine Protein NEGATIVE Urine Glucose (UA) NEGATIVE Urine Ketones NEGATIVE Urine Blood NEGATIVE Urine Nitrite NEGATIVE Ur Leukocyte Esterase NEGATIVE Urine WBC (Auto) 3 Urine RBC (Auto) 0 Impressions: Abdomen/Pelvis CT 03/23/19 00:00 IMPRESSION: 1. Findings consistent with development of small bowel obstruction that may be related to an adhesion with transition point in the distal most ileum. 2. New ascites in the abdomen and pelvis that may be related to the obstruction. 3. Stable peritoneal implants and abdominal wall metastatic disease. Assessment & Plan - Diagnosis (1) Metastasis from gallbladder cancer Is this a current diagnosis for this admission?: Yes (2) Nausea and vomiting Qualifiers: Vomiting type: unspecified Vomiting Intractability: unspecified Qualified Code(s): R11.2 - Nausea with vomiting, unspecified Is this a current diagnosis for this admission?: Yes - Plan Summary Plan Summary: This is a 64-year-old female with metastatic gallbladder cancer. She recently was found to have progression of her cancer, with abdominal wall and peritoneal implants. On Monday, she restarted chemotherapy with gemcitabine and cisplatin. Since that time, she has experienced increasing nausea, vomiting, and abdominal pain. I have discussed the case personally with Dr. España. It is conceivable, that her symptoms may be related to the chemotherapy. I have reviewed the patient's CT scan. The patient does have dilation of her small bowel, however an obvious transition zone is not readily apparent. The patient had a stool today in the emergency department, making a complete bowel obstruction much less likely. Regardless of the presence or absence of a small bowel obstruction, the patient is not a candidate for surgical intervention. I have discussed the case at length with Dr. España. She is in agreement that surgical intervention is not a viable option for this patient. Recommend symptomatic relief with NG decompression and antiemetics. Repeat x-rays later today to visualize the oral contrast. If the patient does have evidence of a persistent bowel obstruction, despite maximal medical therapy. Palliative gastrostomy may be required. R ecommend evaluation by medical team. Surgery will follow this patient with you.
[2019-03-23] MEDS ORDERED: ACETAMINOPHEN 650 MG SUPP.RECT PR PRN (08:29)
[2019-03-23] MEDS ORDERED: ALBUTEROL SULFATE 0.083% NEB 2.5 MG/3 ML AMPUL NEB PRN (08:29)
[2019-03-23] MEDS ORDERED: PROMETHAZINE HCL INJ 25 MG/1 ML VIAL IV PRN (08:29)
[2019-03-23] MEDS ORDERED: MORPHINE SULFATE 10 MG/ML INJ IV PRN (09:52)
[2019-03-23] MEDS ORDERED: PHENOL/SODIUM PHENOLATE 100 SPRAY/177 ML BOTTLE PO PRN (09:52)
[2019-03-23] MEDS ORDERED: DEXTROSE 50%-WATER 25 GM/50 ML DISP.SYRIN IV PRN ×2 (09:55)
[2019-03-23] MEDS ORDERED: DEXTROSE 40% GEL 15 GM TUBE PO PRN ×2 (09:55)
[2019-03-23] MEDS ORDERED: GLUCAGON,HUMAN RECOMB 1 MG INJ IM PRN (09:55)
--- NOTE | 2019-03-23 09:56 | PDOC H&P ---
History of Present Illness Admission Date/PCP: 03/23/19 08:48 JASWANT EDWARDS MD Patient complains of: abdominal pain History of Present Illness: CARMEN RUSSO is a 64 year old female with a past medical history significant for metastatic gallbladder disease, COPD, , Hypertension, diabetes mellitus, and anxiety who presented to the emergency department today with a complaint of 3 days of nausea and vomiting with sudden onset of abdominal pain last night. She did receive her first chemotherapy treatment on Monday. She is followed by Dr. Tadeo for her metastatic gallbladder disease. She denies fever, chills, chest pain, palpitations, dyspnea, and diarrhea. She reports that she had a hard, formed, bowel movement this morning. Evaluation in the emergency department reveals stable vital signs, unremarkable CBC, chemistry notable for mild hyponatremia, hypokalemia, acidosis, and mildly elevated ALT T's. Urinalysis is negative. KUB and CT with oral contrast are consistent with developing small bowel obstruction, ascites, and abdominal wall metastatic disease. NG tube has been placed. Surgery is consulted. She is referred to the hospitalist service for admission and conservative management of the above-stated complaints of findings. Past Medical History Cardiac Medical History: Reports: Hypertension Denies: Coronary Artery Disease, Myocardial Infarction Pulmonary Medical History: Reports: Bronchitis, Chronic Obstructive Pulmonary Disease (COPD), Pneumonia Denies: Asthma EENT Medical History: Reports: None Neurological Medical History: Denies: Ischemic CVA, Seizures Endocrine Medical History: Reports: Diabetes Mellitus Type 2 - borderline Renal/ Medical History: Reports: None Malignancy Medical History: Reports: Other - Metastatic gallbladder cancer with peritoneal and abdominal wall implants. GI Medical History: Reports: None Musculoskeltal Medical History: Denies: Arthritis Skin Medical History: Reports: None Psychiatric Medical History: Reports: General Anxiety Disorder Traumatic Medical History: Reports: None Hematology: Reports: Anemia Infectious Medical History: Reports: None Past Surgical History Past Surgical History: Reports: Orthopedic Surgery - left foot/ titanium plates placed, Tonsillectomy, Other - Radical cholecystectomy, liver resection, periportal lymphadenectomy Denies: Hysterectomy Social History Information Source: Patient Lives with: Spouse/Significant other Smoking Status: Never Smoker Frequency of Alcohol Use: None Drugs: None Hx Prescription Drug Abuse: No Family History Family History: Reviewed & Not Pertinent Parental Family History Reviewed: Yes Children Family History Reviewed: Yes Sibling(s) Family History Reviewed.: Yes Medication/Allergy Home Medications: Albuterol Sulfate [Albuterol Sulfate 2.5mg/3 mL] 2.5 mg IH Q4HP PRN 01/14/12 Metformin HCl [Metformin HCl ER] 500 mg PO BIDBS 03/06/18 Amlodipine Besylate [Norvasc 5 mg Tablet] 5 mg PO DAILY #30 tablet 04/04/18 Fluticasone/Salmeterol [Advair 250-50 Diskus 14 Dose/Diskus] 1 inh IH Q12 #1 inh aler 04/04/18 Irbesartan/Hydrochlorothiazide [Avalide 300-12.5 mg Tablet] 1 each PO DAILY #30 tablet 04/04/18 Tiotropium [place] [Spiriva Respimat] 2 puff IH DAILY #1 mist.inhal 04/04/18 Ondansetron HCl [Zofran 8 mg Tablet] 8 mg PO Q8HP PRN 05/28/18 Alprazolam 1 mg PO Q12HP PRN 03/23/19 Allergies/Adverse Reactions: Penicillins Adverse Reaction (Severe, Verified 05/29/18 15:26) WHEEZE metronidazole [From Flagyl] Adverse Reaction (Verified 05/29/18 15:26) Review of Systems Constitutional: PRESENT: anorexia. ABSENT: chills, fever(s), headache(s), weight gain, weight loss Eyes: ABSENT: visual disturbances Ears: ABSENT: hearing changes Cardiovascular: ABSENT: chest pain, dyspnea on exertion, edema, orthropnea, palpitations Respiratory: ABSENT: cough, hemoptysis Gastrointestinal: PRESENT: abdominal pain, nausea, vomiting. ABSENT: constipation, diarrhea, hematemesis, hematochezia Genitourinary: ABSENT: dysuria, hematuria Musculoskeletal: ABSENT: joint swelling Integumentary: ABSENT: rash, wounds Neurological: ABSENT: abnormal gait, abnormal speech, confusion, dizziness, focal weakness, syncope Psychiatric: ABSENT: anxiety, depression, homidical ideation, suicidal ideation Endocrine: ABSENT: cold intolerance, heat intolerance, polydipsia, polyuria Hematologic/Lymphatic: ABSENT: easy bleeding, easy bruising Physical Exam Vital Signs: Temp Pulse Resp BP Pulse Ox 98.3 F 91 16 126/64 H 95 03/23/19 06:06 03/23/19 06:06 03/23/19 06:06 03/23/19 06:06 03/23/19 06:06 Intake & Output 03/22/19 03/23/19 03/24/19 06:59 06:59 06:59 Intake Total 1000 Balance 1000 Weight 76.6 kg General appearance: PRESENT: no acute distress, cooperative, well-developed, well-nourished Head exam: PRESENT: atraumatic, normocephalic Eye exam: PRESENT: conjunctiva pink, EOMI, PERRLA. ABSENT: scleral icterus Ear exam: PRESENT: normal external ear exam Mouth exam: PRESENT: moist, tongue midline Respiratory exam: PRESENT: clear to auscultation christian, symmetrical, unlabored. ABSENT: rales, rhonchi, wheezes Cardiovascular exam: PRESENT: RRR, +S1, +S2. ABSENT: diastolic murmur, rubs, systolic murmur Pulses: PRESENT: normal dorsalis pedis pul Vascular exam: PRESENT: normal capillary refill GI/Abdominal exam: PRESENT: distended, hypoactive bowel sounds, soft, tende rness. ABSENT: guarding, mass, organolmegaly, rebound Rectal exam: PRESENT: deferred Extremities exam: PRESENT: full ROM. ABSENT: calf tenderness, clubbing, pedal edema Musculoskeletal exam: PRESENT: ambulatory Neurological exam: PRESENT: alert, awake, oriented to person, oriented to place, oriented to time, oriented to situation, CN II-XII grossly intact. ABSENT: motor sensory deficit Psychiatric exam: PRESENT: appropriate affect, normal mood. ABSENT: homicidal ideation, suicidal ideation Skin exam: PRESENT: dry, intact, warm. ABSENT: cyanosis, rash Results Laboratory Results: 03/23/19 02:55 03/23/19 02:55 03/23/19 03/23/19 03/23/19 00:20 02:55 02:55 WBC 6.0 RBC 3.88 Hgb 12.0 Hct 34.4 L MCV 89 MCH 30.8 MCHC 34.8 RDW 13.8 Plt Count 127 L Seg Neutrophils % 70.8 Sodium 133.8 L Potassium 3.1 L Chloride 94 L Carbon Dioxide 37 H Anion Gap 3 L BUN 11 Creatinine 0.50 L Est GFR ( Amer) > 60 Glucose 105 Calcium 8.8 Total Bilirubin 0.8 AST 69 H Alkaline Phosphatase 231 H Total Protein 6.0 L Albumin 3.5 Lipase 24.1 Urine Color YELLOW Urine Appearance SLIGHTLY-CLOUDY Urine pH 7.0 Ur Specific [place] 1.010 Urine Protein NEGATIVE Urine Glucose (UA) NEGATIVE Urine Ketones NEGATIVE Urine Blood NEGATIVE Urine Nitrite NEGATIVE Ur Leukocyte Esterase NEGATIVE Urine WBC (Auto) 3 Urine RBC (Auto) 0 Impressions: Abdomen/Pelvis CT 03/23/19 00:00 IMPRESSION: 1. Findings consistent with development of small bowel obstruction that may be related to an adhesion with transition point in the distal most ileum. 2. New ascites in the abdomen and pelvis that may be related to the obstruction. 3. Stable peritoneal implants and abdominal wall metastatic disease. KUB X-Ray 03/23/19 00:00 IMPRESSION: NG tube in good position in the stomach. Assessment and Plan - Diagnosis (1) Partial small bowel obstruction Is this a current diagnosis for this admission?: Yes Plan: Imaging suggest small bowel obstruction. Patient has had a hard, formed, bowel movement today. She is much more comfortable now that NG tube has been placed; clear yellow fluid noted in canister. Symptoms may also be related to recent chemotherapy administration 2 days prior to onset of nausea. Patient is admitted to the medical floor. She will be provided maintenance IV fluids. Antiemetics and analgesics as needed. We will monitor chemistries and replace electrolytes as needed. Surgery is consulted; appreciate their assistance. Discussed with Dr. Yeung today; patient is a poor surgical candidate. He recommends conservative management. 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 Tadeo as an outpatient. We will consult oncology; appreciate their assistance. Primary management per their expertise. (3) Abdominal pain Qualifiers: Abdominal location: unspecified location Qualified Code(s): R10.9 - Unspecified abdominal pain Is this a current diagnosis for this admission?: Yes Plan: Secondary to #1 and 2 Evaluation management as above. (4) Nausea and vomiting Qualifiers: Vomiting type: unspecified Vomiting Intractability: unspecified Qualified Code(s): R11.2 - Nausea with vomiting, unspecified Is this a current diagnosis for this admission?: Yes Plan: Secondary to #1. Management as above. (5) Anxiety Is this a current diagnosis for this admission?: Yes Plan: Reassurance. IV Ativan as needed. (6) COPD (chronic obstructive pulmonary disease) Qualifiers: COPD type: unspecified COPD Qualified Code(s): J44.9 - Chronic obstructive pulmonary disease, unspecified Is this a current diagnosis for this admission?: Yes Plan: Stable and without exacerbation at this time. We will continue home maintenance inhalers once reconciled. As needed nebulizer treatments. Supplemental oxygen as needed to maintain saturations greater than 89%. Patient utilizes 2 L via nasal cannula when sleeping at home. Pulmonary toilet. (7) Diabetes Qualifiers: Diabetes mellitus type: type 2 Diabetes mellitus watermelon inspector insulin use: without watermelon inspector use Diabetes mellitus complication status: without complication Qualified Code(s): E11.9 - Type 2 diabetes mellitus without complications Is this a current diagnosis for this admission?: Yes Plan: Currently n.p.o. Hold oral anti-hyperglycemics while admitted. Accu-Cheks every 6 hours with Humalog for sliding scale coverage. Hypoglycemia protocol in place. - Time Time Spent with patient: 35 or more minutes Medications reviewed and adjusted accordingly: Yes Anticipated discharge: Home with Homehealth Within: within 72 hours - Inpatient Certification Based on my medical assessment, after consideration of the patient's comorbidities, presenting symptoms, or acuity I expect that the services needed warrant INPATIENT care.: Yes I certify that my determination is in accordance with my understanding of Medicare's requirements for reasonable and necessary INPATIENT services [42 CFR 412.3e].: Yes Medical Necessity: Need For IV Fluids, Risk of Complication if Not Cared For in Hospital
[2019-03-23] MEDS: FAMOTIDINE INJ/PF 20 MG/2 ML SDV IV SCH ×2 (10:30→23:45)
[2019-03-23] MEDS: NORMAL SALINE 1000 ML 1,000 ML IV PRN (10:31)
[2019-03-23] MEDS: ONDANSETRON HCL INJ/PF 4 MG/2 ML SDV IV PRN (10:31)
[2019-03-23] MEDS: LORAZEPAM INJ 2 MG/1 ML VIAL IV PRN ×2 (10:42→18:48)
[2019-03-23] MEDS: INSULIN LISPRO 100 UNIT/ML 3 ML VIAL SUBCUT SCH ×2 (10:46→18:34)
[2019-03-23] MEDS: HEPARIN SOD (PORCINE) 5,000 UNIT/ML 1 ML VIAL SUBCUT SCH ×2 (16:04→23:04)
[2019-03-23] MEDS ORDERED: ONDANSETRON HCL 8 MG TABLET PO PRN (16:57)
--- NOTE | 2019-03-23 17:43 | PDOC CONSULTATION ---
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 She was initially started on FOLFOX, but in Feb 2019, was found to have progression of disease with omental mets, etc. She received her first cycle of chemo with carboplatin/gemcitabine on 03/18/2019. She has had increasing abdominal cramping and constipation over the last few days. She has been taking zofran, Xanax, and MOM for this, however, yesterday, was progressively worse. She presented to the ED and CT showed probable SBO. She has been treated conservatively, NG tube was placed and over the last 24 hours, has had increased diarrhea. NG is now clamped. Her abdominal pain is much improved. Past Medical History Cardiac Medical History: Reports: Hypertension Denies: Coronary Artery Disease, Myocardial Infarction Pulmonary Medical History: Reports: Bronchitis, Chronic Obstructive Pulmonary Disease (COPD), Pneumonia Denies: Asthma EENT Medical History: Reports: None Neurological Medical History: Denies: Ischemic CVA, Seizures Endocrine Medical History: Reports: Diabetes Mellitus Type 2 - borderline Renal/ Medical History: Reports: None Malignancy Medical History: Reports: Other - Metastatic gallbladder cancer with peritoneal and abdominal wall implants. GI Medical History: Reports: None Musculoskeltal Medical History: Denies: Arthritis Skin Medical History: Reports: None Psychiatric Medical History: Reports: General Anxiety Disorder Traumatic Medical History: Reports: None Hematology: Reports: Anemia Infectious Medical History: Reports: None Past Surgical History Past Surgical History: Reports: Orthopedic Surgery - left foot/ titanium plates placed, Tonsillectomy, Other - Radical cholecystectomy, liver resection, periportal lymphadenectomy Denies: Hysterectomy Social History Lives with: Spouse/Significant other Smoking Status: Former Smoker Cigarettes Packs Per Day: 2 Number of Years Smokin Frequency of Alcohol Use: None Hx Recreational Drug Use: No Drugs: None Hx Prescription Drug Abuse: No Family History Parental Family History Reviewed: Yes Children Family History Reviewed: No Sibling(s) Family History Reviewed.: Yes Medication/Allergy Home Medications: Albuterol Sulfate [Albuterol Sulfate 2.5mg/3 mL] 1 puff IH Q12 01/14/12 Metformin HCl [Metformin HCl ER] 500 mg PO BIDBS 03/06/18 Amlodipine Besylate [Norvasc 5 mg Tablet] 5 mg PO DAILY #30 tablet 04/04/18 Fluticasone/Salmeterol [Advair 250-50 Diskus 14 Dose/Diskus] 1 inh IH Q12 #1 inhaler 04/04/18 Irbesartan/Hydrochlorothiazide [Avalide 300-12.5 mg Tablet] 1 each PO DAILY #30 tablet 04/04/18 Tiotropium Tatum [Spiriva Respimat] 2 puff IH DAILY #1 mist.inhal 04/04/18 Ondansetron HCl [Zofran 8 mg Tablet] 8 mg PO Q8HP PRN 05/28/18 Alprazolam 1 mg PO Q12 03/23/19 Chemo: Cisplatin/Gemcitabine 1 each IV ASDIR PRN 03/23/19 Allergies/Adverse Reactions: Penicillins Adverse Reaction (Severe, Verified 05/29/18 15:26) WHEEZE metronidazole [From Flagyl] Adverse Reaction (Verified 05/29/18 15:26) Review of Systems Constitutional: ABSENT: fever(s), headache(s) Eyes: ABSENT: visual disturbances Ears: ABSENT: hearing changes Nose, Mouth, and Throat: ABSENT: sore throat Cardiovascular: ABSENT: chest pain Respiratory: ABSENT: dyspnea Gastrointestinal: PRESENT: abdominal pain, constipation Genitourinary: ABSENT: dysuria Musculoskeletal: ABSENT: muscle weakness Integumentary: ABSENT: rash Neurological: ABSENT: confusion Hematologic/Lymphatic: ABSENT: easy bleeding Physical Exam Vital Signs: Temp Pulse Resp BP Pulse Ox 98.6 F 95 18 131/73 H 97 03/23/19 14:51 03/23/19 14:51 03/23/19 14:51 03/23/19 14:51 03/23/19 14:51 Intake & Output 03/22/19 03/23/19 03/24/19 06:59 06:59 06:59 Intake Total 1000 Output Total 600 Balance 1000 -600 Weight 76.6 kg General appearance: PRESENT: no acute distress, well-developed, well-nourished Exam: 64 year old female. Head exam: PRESENT: atraumatic, normocephalic Eye exam: PRESENT: EOMI, PERRLA Mouth exam: PRESENT: tongue midline Throat exam: PRESENT: other - NG tube in place. Respiratory exam: PRESENT: clear to auscultation christian, unlabored Cardiovascular exam: PRESENT: RRR GI/Abdominal exam: PRESENT: normal bowel sounds, soft. ABSENT: tenderness Extremities exam: ABSENT: pedal edema Musculoskeletal exam: PRESENT: ambulatory Neurological exam: PRESENT: alert, awake, oriented to person, oriented to place, oriented to time, oriented to situation Psychiatric exam: PRESENT: appropriate affect Skin exam: PRESENT: normal color Results Laboratory Results: 03/23/19 02:55 03/23/19 02:55 03/23/19 03/23/19 03/23/19 00:20 02:55 02:55 WBC 6.0 RBC 3.88 Hgb 12.0 Hct 34.4 L MCV 89 MCH 30.8 MCHC 34.8 RDW 13.8 Plt Count 127 L Seg Neutrophils % 70.8 Sodium 133.8 L Potassium 3.1 L Chloride 94 L Carbon Dioxide 37 H Anion Gap 3 L BUN 11 Creatinine 0.50 L Est GFR ( Amer) > 60 Glucose 105 Calcium 8.8 Total Bilirubin 0.8 AST 69 H Alkaline Phosphatase 231 H Total Protein 6.0 L Albumin 3.5 Lipase 24.1 Urine Color YELLOW Urine Appearance SLIGHTLY-CLOUDY Urine pH 7.0 Ur Specific [place] 1.010 Urine Protein NEGATIVE Urine Glucose (UA) NEGATIVE Urine Ketones NEGATIVE Urine Blood NEGATIVE Urine Nitrite NEGATIVE Ur Leukocyte Esterase NEGATIVE Urine WBC (Auto) 3 Urine RBC (Auto) 0 Impressions: Abdomen/Pelvis CT 03/23/19 00:00 IMPRESSION: 1. Findings consistent with development of small bowel obstruction that may be related to an adhesion with transition point in the distal most ileum. 2. New ascites in the abdomen and pelvis that may be related to the obstruction. 3. Stable peritoneal implants and abdominal wall metastatic disease. KUB X-Ray 03/23/19 00:00 IMPRESSION: NG tube in good position in the stomach. Status: Image reviewed by me Assessment & Plan - Diagnosis (1) Metastasis from gallbladder cancer Is this a current diagnosis for this admission?: Yes Plan: She is on active chemo. Will consider continuation of this as outpatient. (2) Partial small bowel obstruction Is this a current diagnosis for this admission?: Yes Plan: This appears to be resolving. Continue conservative management. Will add laxatives with next cycle of chemo. Continue IV fluids. May be able to DC the NG tube soon. I will defer to Surgery. - Plan Summary Plan Summary: Patient was discussed in depth with Dr. Yeung. Agree with current management. Will continue to follow with you. Please call with any questions or concerns.
[2019-03-23] MEDS: ALPRAZOLAM 0.5 MG TABLET PO SCH (21:59)
[2019-03-23] MEDS ORDERED: (PENDING PHARMACY ID) (Alprazolam [Alprazolam] 1 MG) PO SCH (22:00)
[2019-03-23] MEDS ORDERED: (PENDING PHARMACY ID) (Fluticasone/Salmeterol 1 INH) IH SCH (22:00)
[2019-03-23] MEDS: PANTOPRAZOLE SODIUM 40 MG VIAL IV SCH (23:04)
[2019-03-24] MEDS: NORMAL SALINE 1000 ML 1,000 ML IV PRN ×3 (01:49→22:27)
[2019-03-24 04:59] LABS: HEMOGLOBIN 10.9 g/dL (12.0-15.5); MEAN CORPUSCULAR HEMOGLOBIN 31.6 pg (27.0-33.4); MEAN CORPUSCULAR HGB CONC 35.2 g/dL (32.0-36.0); MEAN CORPUSCULAR VOLUME 90 fl (80-97); RED BLOOD COUNT 3.46 10^6/uL (3.72-5.28); RED CELL DISTRIBUTION WIDTH 13.6 % (11.5-14.0); WHITE BLOOD COUNT 3.4 10^3/uL (4.0-10.5)
[2019-03-24 05:20] LABS: ANION GAP 7 (5-19); BLOOD UREA NITROGEN 10 mg/dL (7-20); CALCIUM 8.4 mg/dL (8.4-10.2); CARBON DIOXIDE 24 mmol/L (22-30); CHLORIDE 107 mmol/L (98-107); GLUCOSE 81 mg/dL (75-110); POTASSIUM 3.4 mmol/L (3.6-5.0)
[2019-03-24 05:21] LABS: PLATELET COUNT 89 10^3/uL (150-450)
[2019-03-24] MEDS: HEPARIN SOD (PORCINE) 5,000 UNIT/ML 1 ML VIAL SUBCUT SCH ×2 (05:39→14:29)
[2019-03-24] MEDS: INSULIN LISPRO 100 UNIT/ML 3 ML VIAL SUBCUT SCH ×4 (06:40→16:42)
--- NOTE | 2019-03-24 08:35 | RADIOLOGY REPORT (SQ) ---
EXAM DESCRIPTION: KUB/ABDOMEN (SINGLE VIEW) COMPLETED DATE/TIME: 03/24/2019 8:05 am REASON FOR STUDY: nausea and vomiting COMPARISON: 03/23/2019. NUMBER OF VIEWS: One view. TECHNIQUE: Supine radiographic image of the abdomen acquired. LIMITATIONS: None. FINDINGS: BOWEL GAS PATTERN: Minimal gas-filled small bowel loops. CALCIFICATIONS: No suspicious calcifications. SOFT TISSUES: No gross mass or suggestion of organomegaly. HARDWARE: Nasogastric tube, clearly visualized. May have been pulled back. Clips in the upper abdom en. BONES: No acute fracture. No worrisome bone lesions. OTHER: No other significant finding. IMPRESSION: STABLE APPEARANCE. NASOGASTRIC TUBE DESCRIBED. NOT WELL VISUALIZED. MAY NEED TO BE REPOSITIONED. TECHNICAL DOCUMENTATION: JOB ID: [id number] 2010 [employer]- All Rights Reserved Reading location - IP/workstation name: [email or web address]
[2019-03-24] MEDS ORDERED: AMLODIPINE BESYLATE 5 MG TABLET PO SCH (10:00)
[2019-03-24] MEDS ORDERED: [UNRECOGNIZED DRUG - OTHER] PO SCH (10:00)
[2019-03-24] MEDS ORDERED: HYDROCHLOROTHIAZIDE PO SCH (10:00)
[2019-03-24] MEDS ORDERED: IRBESARTAN PO SCH (10:00)
[2019-03-24] MEDS: ALPRAZOLAM 0.5 MG TABLET PO SCH ×2 (10:15→22:23)
[2019-03-24] MEDS: LOSARTAN POTASSIUM 50 MG TABLET PO SCH (10:15)
[2019-03-24] MEDS: HYDROCHLOROTHIAZIDE 12.5 MG TABLET PO SCH (10:16)
[2019-03-24] MEDS: PANTOPRAZOLE SODIUM 40 MG VIAL IV SCH ×2 (10:17→22:23)
[2019-03-24] MEDS: UMECLIDINIUM BROMIDE 62.5 MCG/DOSE IH SCH (10:18)
[2019-03-24] MEDS: FLUTICASONE/VILANTEROL 200-25 MCG/DOSE IH SCH (10:19)
--- NOTE | 2019-03-24 11:32 | PDOC PROGRESS REPORT ---
Subjective Progress Note for:: 03/24/19 Subjective:: CARMEN RUSSO is a 64 year old female with a past medical history significant for metastatic gallbladder disease, COPD, , Hypertension, diabetes mellitus, and anxiety who was admitted 03/23/2019 with a partial small bowel obstruction. Patient was seen on morning rounds. She was initially observed ambulating, independently, on room air in the hallways. Shortly later she was found resting in bed in her room. She tells me she is feeling better today. She has had decreased frequency of abdominal cramping. No longer having nausea or vomiting. NG tube has had very little output overnight. She does continue to have loose bowel movements though these have also decreased in frequency. She denies fever, chills, chest pain, palpitations, dyspnea, orthopnea. She has no other questions or concerns at this time. No concerns per nursing. Reason For Visit: SBO, INTRACTABLE N/V, GALLBLADDER CA , ABD PAIN Physical Exam Vital Signs: Temp Pulse Resp BP Pulse Ox 97.6 F 88 16 119/68 96 03/24/19 08:07 03/24/19 08:07 03/24/19 08:07 03/24/19 08:07 03/24/19 08:07 Intake & Output 03/23/19 03/24/19 03/25/19 06:59 06:59 06:59 Intake Total 1000 1000 Output Total 600 Balance 1000 400 Weight 76.6 kg 76.1 kg General appearance: PRESENT: no acute distress, cooperative, disheveled, well- developed, well-nourished Head exam: PRESENT: atraumatic, normocephalic Eye exam: PRESENT: conjunctiva pink, EOMI, PERRLA. ABSENT: scleral icterus Mouth exam: PRESENT: moist, tongue midline Respiratory exam: PRESENT: clear to auscultation christian, symmetrical, unlabored. ABSENT: rales, rhonchi, wheezes Cardiovascular exam: PRESENT: RRR, +S1, +S2. ABSENT: diastolic murmur, rubs, systolic murmur GI/Abdominal exam: PRESENT: hyperactive bowel sounds, soft, tenderness, other - NG tube to low wall suction. ABSENT: distended, guarding, mass, organolmegaly, rebound Extremities exam: PRESENT: full ROM. ABSENT: calf tenderness, clubbing, pedal edema Musculoskeletal exam: PRESENT: ambulatory Neurological exam: PRESENT: alert, awake, oriented to person, oriented to place, oriented to time, oriented to situation, CN II-XII grossly intact. ABSENT: motor sensory deficit Psychiatric exam: PRESENT: appropriate affect, normal mood. ABSENT: homicidal ideation, suicidal ideation Skin exam: PRESENT: dry, intact, warm. ABSENT: cyanosis, rash Results Laboratory Results: 03/24/19 04:37 03/24/19 04:37 03/24/19 03/24/19 04:37 04:37 WBC 3.4 L RBC 3.46 L Hgb 10.9 L Hct 31.0 L MCV 90 MCH 31.6 MCHC 35.2 RDW 13.6 Plt Count 89 L Sodium 137.5 Potassium 3.4 L Chloride 107 Carbon Dioxide 24 Anion Gap 7 BUN 10 Creatinine 0.43 L Est GFR ( Amer) > 60 Glucose 81 Calcium 8.4 Impressions: Abdomen/Pelvis CT 03/23/19 00:00 IMPRESSION: 1. Findings consistent with development of small bowel obstruction that may be related to an adhesion with transition point in the distal most ileum. 2. New ascites in the abdomen and pelvis that may be related to the obstruction. 3. Stable peritoneal implants and abdominal wall metastatic disease. KUB X-Ray 03/24/19 06:00 IMPRESSION: STABLE APPEARANCE. NASOGASTRIC TUBE DESCRIBED. NOT WELL VISUALIZED. MAY NEED TO BE REPOSITIONED. Assessment and Plan - Diagnosis (1) Partial small bowel obstruction Is this a current diagnosis for this admission?: Yes Plan: Imaging suggest small bowel obstruction. Patient has had a hard, formed, bowel movement today. She is much more comfortable now that NG tube has been placed; clear yellow fluid noted in canister. Symptoms may also be related to recent chemotherapy administration 2 days prior to onset of nausea. Follow-up KUB pending Patient is admitted to the medical floor. She will be provided maintenance IV fluids. Antiemetics and analgesics as needed. NG tube to intermittent low wall suction We will monitor chemistries and replace electrolytes as needed. Surgery is consulted; appreciate their assistance. Discussed with Dr. Yeung; patient is a poor surgical candidate. He recommends conservative management. 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 Tadeo as an outpatient. We will consult oncology; appreciate their assistance. Primary management per their expertise. (3) Abdominal pain Qualifiers: Abdominal location: unspecified location Qualified Code(s): R10.9 - Unspecified abdominal pain Is this a current diagnosis for this admission?: Yes Plan: Improved. Secondary to #1 and 2 Evaluation management as above. (4) Nausea and vomiting Qualifiers: Vomiting type: unspecified Vomiting Intractability: unspecified Qualified Code(s): R11.2 - Nausea with vomiting, unspecified Is this a current diagnosis for this admission?: Yes Plan: Improved. Secondary to #1. Management as above. (5) Anxiety Is this a current diagnosis for this admission?: Yes Plan: Reassurance. IV Ativan as needed. (6) COPD (chronic obstructive pulmonary disease) Qualifiers: COPD type: unspecified COPD Qualified Code(s): J44.9 - Chronic obstructive pulmonary disease, unspecified Is this a current diagnosis for this admission?: Yes Plan: Stable and without exacerbation at this time. Breo and Incruse As needed nebulizer treatments. Supplemental oxygen as needed to maintain saturations greater than 89%. Patient utilizes 2 L via nasal cannula when sleeping at home. Pulmonary toilet. (7) Diabetes Qualifiers: Diabetes mellitus type: type 2 Diabetes mellitus superintendent container terminal insulin use: without superintendent container terminal use Diabetes mellitus complication status: without complication Qualified Code(s): E11.9 - Type 2 diabetes mellitus without complications Is this a current diagnosis for this admission?: Yes Plan: Currently n.p.o. Hold oral anti-hyperglycemics while admitted. Accu-Cheks every 6 hours with Humalog for sliding scale coverage. Hypoglycemia protocol in place. - Time Time Spent with patient: 25-34 minutes Medications reviewed and adjusted accordingly: Yes Anticipated discharge: Home Within: within 48 hours
[2019-03-24] MEDS: LORAZEPAM INJ 2 MG/1 ML VIAL IV PRN ×3 (12:19→22:27)
--- NOTE | 2019-03-24 14:24 | PDOC PROGRESS REPORT ---
Subjective Progress Note for:: 03/24/19 Subjective:: This is a 64-year-old female with complaints of nausea, vomiting, and abdominal pain. She has slightly dilated loops of bowel and a CT scan, however she continued to pass flatus and have bowel movements. The patient reports no nausea, vomiting, or abdominal pain today. She is continued to have multiple bowel movements overnight. She denies chest pain, shortness of breath, fevers, chills, dizziness, orthostasis, or other complaint. Reason For Visit: SBO, INTRACTABLE N/V, GALLBLADDER CA , ABD PAIN Physical Exam Vital Signs: Temp Pulse Resp BP Pulse Ox 97.7 F 92 18 116/62 94 03/24/19 11:33 03/24/19 11:33 03/24/19 11:33 03/24/19 11:33 03/24/19 11:33 Intake & Output 03/23/19 03/24/19 03/25/19 06:59 06:59 06:59 Intake Total 1000 1000 1360 Output Total 600 Balance 6885 450 6931 Weight 76.6 kg 76.1 kg General appearance: PRESENT: no acute distress, cooperative Head exam: PRESENT: atraumatic, normocephalic Eye exam: PRESENT: EOMI, PERRLA. ABSENT: scleral icterus Mouth exam: PRESENT: moist, neck supple Neck exam: ABSENT: meningismus, tenderness, thyromegaly, tracheal deviation Respiratory exam: PRESENT: unlabored. ABSENT: tachypnea, wheezes Cardiovascular exam: ABSENT: tachycardia Vascular exam: PRESENT: normal capillary refill GI/Abdominal exam: PRESENT: soft. ABSENT: distended, firm, guarding, rigid, tenderness Rectal exam: PRESENT: deferred Gentrourinary exam: ABSENT: erythema Extremities exam: ABSENT: clubbing Neurological exam: PRESENT: alert, awake, oriented to person, oriented to place, oriented to time, oriented to situation, CN II-XII grossly intact. ABSENT: motor sensory deficit Psychiatric exam: ABSENT: agitated, anxious, depressed Focused psych exam: ABSENT: delusional Skin exam: ABSENT: cyanosis, erythema, jaundice Results Laboratory Results: 03/24/19 04:37 03/24/19 04:37 03/24/19 03/24/19 04:37 04:37 WBC 3.4 L RBC 3.46 L Hgb 10.9 L Hct 31.0 L MCV 90 MCH 31.6 MCHC 35.2 RDW 13.6 Plt Count 89 L Sodium 137.5 Potassium 3.4 L Chloride 107 Carbon Dioxide 24 Anion Gap 7 BUN 10 Creatinine 0.43 L Est GFR ( Amer) > 60 Glucose 81 Calcium 8.4 Impressions: Abdomen/Pelvis CT 03/23/19 00:00 IMPRESSION: 1. Findings consistent with development of small bowel obstruction that may be related to an adhesion with transition point in the distal most ileum. 2. New ascites in the abdomen and pelvis that may be related to the obstruction. 3. Stable peritoneal implants and abdominal wall metastatic disease. KUB X-Ray 03/24/19 06:00 IMPRESSION: STABLE APPEARANCE. NASOGASTRIC TUBE DESCRIBED. NOT WELL VISUALIZED. MAY NEED TO BE REPOSITIONED. Assessment & Plan - Diagnosis (1) Metastasis from gallbladder cancer Is this a current diagnosis for this admission?: Yes (2) Nausea and vomiting Qualifiers: Vomiting type: unspecified Vomiting Intractability: unspecified Qualified Code(s): R11.2 - Nausea with vomiting, unspecified Is this a current diagnosis for this admission?: Yes - Time Time Spent with patient: Less than 15 minutes - Plan Summary Plan Summary: This is a 64-year-old female admitted with nausea and vomiting. An NG tube was placed in the ER yesterday. The patient continues to have loose watery stools. She feels much better today. I will remove her NG tube and allow her to have clear liquids. As long as she tolerates clear liquids, her diet may be advanced. Surgery will continue to follow this patient closely with you.
[2019-03-25] MEDS: INSULIN LISPRO 100 UNIT/ML 3 ML VIAL SUBCUT SCH ×5 (04:38→22:12)
[2019-03-25 06:14] LABS: HEMATOCRIT 29.3 % (36.0-47.0); HEMOGLOBIN 10.4 g/dL (12.0-15.5); MEAN CORPUSCULAR HEMOGLOBIN 31.6 pg (27.0-33.4); MEAN CORPUSCULAR HGB CONC 35.3 g/dL (32.0-36.0); MEAN CORPUSCULAR VOLUME 89 fl (80-97); RED BLOOD COUNT 3.28 10^6/uL (3.72-5.28); RED CELL DISTRIBUTION WIDTH 13.3 % (11.5-14.0); WHITE BLOOD COUNT 3.5 10^3/uL (4.0-10.5)
[2019-03-25 06:24] LABS: ANION GAP 6 (5-19); BLOOD UREA NITROGEN 4 mg/dL (7-20); CALCIUM 8.1 mg/dL (8.4-10.2); CARBON DIOXIDE 26 mmol/L (22-30); CHLORIDE 106 mmol/L (98-107); GLUCOSE 83 mg/dL (75-110)
[2019-03-25 06:26] LABS: POTASSIUM 2.7 mmol/L (3.6-5.0)
[2019-03-25 06:47] LABS: PLATELET COUNT 77 10^3/uL (150-450)
[2019-03-25] MEDS ORDERED: POTASSIUM CHLORIDE 10 MEQ TABLET.ER PO ONE (07:00)
--- NOTE | 2019-03-25 07:52 | PDOC PROGRESS REPORT ---
Subjective Progress Note for:: 03/25/19 Subjective:: Pt doing better this am, tolerated clears yesterday, feels ready to advance diet today Reason For Visit: SBO, INTRACTABLE N/V, GALLBLADDER CA , ABD PAIN Physical Exam Vital Signs: Temp Pulse Resp BP Pulse Ox 98.9 F 89 17 107/60 98 03/25/19 03:25 03/25/19 03:25 03/25/19 03:25 03/25/19 03:25 03/25/19 03:25 Intake & Output 03/24/19 03/25/19 03/26/19 06:59 06:59 06:59 Intake Total 1000 2720 Output Total 600 Balance 400 2720 Weight 76.1 kg 76.7 kg General appearance: PRESENT: no acute distress, well-developed, well-nourished Head exam: PRESENT: atraumatic, normocephalic Eye exam: PRESENT: conjunctiva pink, EOMI, PERRLA. ABSENT: scleral icterus Ear exam: PRESENT: normal external ear exam Mouth exam: PRESENT: moist, tongue midline Neck exam: ABSENT: carotid bruit, JVD, lymphadenopathy, thyromegaly Respiratory exam: PRESENT: clear to auscultation christian. ABSENT: rales, rhonchi, wheezes Cardiovascular exam: PRESENT: RRR. ABSENT: diastolic murmur, rubs, systolic murmur Pulses: PRESENT: normal dorsalis pedis pul Vascular exam: PRESENT: normal capillary refill GI/Abdominal exam: PRESENT: normal bowel sounds, soft. ABSENT: distended, guarding, mass, organolmegaly, rebound, tenderness Rectal exam: PRESENT: deferred Extremities exam: PRESENT: full ROM. ABSENT: calf tenderness, clubbing, pedal edema Neurological exam: PRESENT: alert, awake, oriented to person, oriented to place, oriented to time, oriented to situation, CN II-XII grossly intact. ABSENT: motor sensory deficit Psychiatric exam: PRESENT: appropriate affect, normal mood. ABSENT: homicidal ideation, suicidal ideation Skin exam: PRESENT: dry, intact, warm. ABSENT: cyanosis, rash Results Laboratory Results: 03/25/19 05:32 03/25/19 05:32 03/25/19 03/25/19 03/25/19 05:32 05:32 05:32 WBC 3.5 L RBC 3.28 L Hgb 10.4 L Hct 29.3 L MCV 89 MCH 31.6 MCHC 35.3 RDW 13.3 Plt Count 77 L Sodium 137.6 Potassium 2.7 L* Chloride 106 Carbon Dioxide 26 Anion Gap 6 BUN 4 L Creatinine 0.39 L Est GFR ( Amer) > 60 Glucose 83 Calcium 8.1 L Magnesium 1.7 Impressions: Abdomen/Pelvis CT 03/23/19 00:00 IMPRESSION: 1. Findings consistent with development of small bowel obstruction that may be related to an adhesion with transition point in the distal most ileum. 2. New ascites in the abdomen and pelvis that may be related to the obstruction. 3. Stable peritoneal implants and abdominal wall metastatic disease. KUB X-Ray 03/24/19 06:00 IMPRESSION: STABLE APPEARANCE. NASOGASTRIC TUBE DESCRIBED. NOT WELL VISUALIZED. MAY NEED TO BE REPOSITIONED. Assessment & Plan - Diagnosis (1) Partial small bowel obstruction Is this a current diagnosis for this admission?: Yes Plan: Improving, should advance diet to full liquid then regular diet later today. (2) Nausea and vomiting Qualifiers: Vomiting type: unspecified Vomiting Intractability: intractable Qualified Code(s): R11.2 - Nausea with vomiting, unspecified Is this a current diagnosis for this admission?: Yes Plan: Prev intractable now better, will still have nausea related to chemo this week (3) Gallbladder cancer Is this a current diagnosis for this admission?: Yes Plan: Stage IV cholangiocarcinoma on first line therapy. S/p cycle #1 of carbo/gemzar. Day #8 of cycle 1 was to be given today but we will hold x 1 wk and plan next week if tolerating PO well - Time Time Spent with patient: 35 or more minutes Level of Care: IMCU Medications reviewed and adjusted accordingly: Yes Anticipated discharge: Home Within: within 24 hours Disposition: If pt tolerating PO well today and advanced to regular diet, and K appropriate, pt should d/c home tomorrow. She will be set up for IVF on and day #8 of chemo on monday next week. - Inpatient Certification Based on my medical assessment, after consideration of the patient's comorbid ities, presenting symptoms, or acuity I expect that the services needed warrant INPATIENT care.: Yes I certify that my determination is in accordance with my understanding of Medicare's requirements for reasonable and necessary INPATIENT services [42 CFR 412.3e].: Yes Medical Necessity: Need For IV Fluids, Risk of Complication if Not Cared For in Hospital
[2019-03-25] MEDS: POTASSIUM CHLORIDE 20 MEQ/50 ML RTU IV SCH ×2 (08:45→11:36)
[2019-03-25] MEDS: NORMAL SALINE 1000 ML 1,000 ML IV PRN ×2 (08:45→17:31)
[2019-03-25] MEDS: LORAZEPAM INJ 2 MG/1 ML VIAL IV PRN (08:53)
--- NOTE | 2019-03-25 08:58 | CDI QUERY ---
CDI Query CDI Review: Dear ROJELIO, To better reflect your patients severity of illness, morbidity, and resource utilization Please LINK any condition to present on admission, if applicable. The terms probable, suspected, likely, possible or still to be ruled out may be used. If you agree, please add to the Progress Notes and Discharge Summary Query Clinical indicators PARTIAL BOWL OBSTRUCTION LIKELY DUE TO ADHESIONS FROM PROGRESSION OF CANCER? PARTIAL BOWEL OBSTRUCTION LIKELY RELATED TO ADHESIONS FROM PERITONEAL IMPLANTS? PARTIAL BOWEL OBSTRUCTION LIKELY DUE TO SYMPTOMS OF CHEMO? UNABLE TO DETERMIINE OTHER *Abdomen/Pelvis CT 03/23/19 00:00 IMPRESSION: 1. Findings consistent with development of small bowel obstruction that may be related to an adhesion with transition point in the distal most ileum. *recently was found to have progression of her cancer *She has abdominal wall and peritoneal implants. The patient was recently restarted on chemotherapy (gemcitabine and cisplatin). Patient's first dose of this was Monday. Monday she began having nausea, vomiting, and abdominal pain. Her symptoms progressed, and they are now severe. The patient presented to the emergency department with complaints of severe nausea and vomiting with abdominal cramping. Thank you, CEASAR Clinical Documentation [facility] [place] [facility] [phone]
[2019-03-25] MEDS: LOSARTAN POTASSIUM 50 MG TABLET PO SCH (10:16)
[2019-03-25] MEDS: PANTOPRAZOLE SODIUM 40 MG VIAL IV SCH ×2 (10:16→22:16)
[2019-03-25] MEDS: ALPRAZOLAM 0.5 MG TABLET PO SCH ×2 (10:17→22:16)
[2019-03-25] MEDS: HYDROCHLOROTHIAZIDE 12.5 MG TABLET PO SCH (10:17)
[2019-03-25] MEDS: UMECLIDINIUM BROMIDE 62.5 MCG/DOSE IH SCH (10:22)
[2019-03-25] MEDS: FLUTICASONE/VILANTEROL 200-25 MCG/DOSE IH SCH (11:36)
--- NOTE | 2019-03-25 14:13 | PDOC PROGRESS REPORT ---
Subjective Progress Note for:: 03/25/19 Subjective:: CARMEN RUSSO is a 64 year old female with a past medical history significant for metastatic gallbladder disease, COPD, , Hypertension, diabetes mellitus, and anxiety who was admitted 03/23/2019 with a partial small bowel obstruction. Patient was seen on morning rounds with her present. She was initially observed ambulating, independently, on room air in the hallways. Shortly later she was found resting in bed in her room. She tells me she is feeling well today. No longer having abdominal cramping, nausea or vomiting. Soft bowel movement this morning. Tolerating clear liquid diet well. She denies fever, chills, chest pain, palpitations, dyspnea, orthopnea. She has no other questions or concerns at this time. No concerns per nursing. Reason For Visit: SBO, INTRACTABLE N/V, GALLBLADDER CA , ABD PAIN Physical Exam Vital Signs: Temp Pulse Resp BP Pulse Ox 97.4 F 82 16 108/64 97 03/25/19 11:30 03/25/19 11:30 03/25/19 11:30 03/25/19 11:30 03/25/19 11:30 Intake & Output 03/24/19 03/25/19 03/26/19 06:59 06:59 06:59 Intake Total 1000 2720 1050 Output Total 600 Balance 400 2720 1050 Weight 76.1 kg 76.7 kg General appearance: PRESENT: no acute distress, cooperative, well-developed, well-nourished Head exam: PRESENT: atraumatic, normocephalic Eye exam: PRESENT: conjunctiva pink, EOMI, PERRLA. ABSENT: scleral icterus Mouth exam: PRESENT: moist, tongue midline Respiratory exam: PRESENT: clear to auscultation christian, symmetrical, unlabored. ABSENT: rales, rhonchi, wheezes Cardiovascular exam: PRESENT: RRR, +S1, +S2. ABSENT: diastolic murmur, rubs, systolic murmur Vascular exam: PRESENT: normal capillary refill GI/Abdominal exam: PRESENT: normal bowel sounds, soft. ABSENT: distended, guarding, mass, organolmegaly, rebound, tenderness Extremities exam: PRESENT: full ROM. ABSENT: calf tenderness, clubbing, pedal edema Musculoskeletal exam: PRESENT: ambulatory Neurological exam: PRESENT: alert, awake, oriented to person, oriented to place, oriented to time, oriented to situation, CN II-XII grossly intact, other - resting tremor. ABSENT: motor sensory deficit Psychiatric exam: PRESENT: appropriate affect, normal mood. ABSENT: homicidal ideation, suicidal ideation Skin exam: PRESENT: dry, intact, warm. ABSENT: cyanosis, rash Results Laboratory Results: 03/25/19 05:32 03/25/19 05:32 03/25/19 03/25/19 03/25/19 05:32 05:32 05:32 WBC 3.5 L RBC 3.28 L Hgb 10.4 L Hct 29.3 L MCV 89 MCH 31.6 MCHC 35.3 RDW 13.3 Plt Count 77 L Sodium 137.6 Potassium 2.7 L* Chloride 106 Carbon Dioxide 26 Anion Gap 6 BUN 4 L Creatinine 0.39 L Est GFR ( Amer) > 60 Glucose 83 Calcium 8.1 L Magnesium 1.7 Impressions: Abdomen/Pelvis CT 03/23/19 00:00 IMPRESSION: 1. Findings consistent with development of small bowel obstruction that may be related to an adhesion with transition point in the distal most ileum. 2. New ascites in the abdomen and pelvis that may be related to the obstruction. 3. Stable peritoneal implants and abdominal wall metastatic disease. KUB X-Ray 03/24/19 06:00 IMPRESSION: STABLE APPEARANCE. NASOGASTRIC TUBE DESCRIBED. NOT WELL VISUALIZED. MAY NEED TO BE REPOSITIONED. Assessment and Plan - Diagnosis (1) Partial small bowel obstruction Is this a current diagnosis for this admission?: Yes Plan: Imaging suggest small bowel obstruction. Unknown etiology; likely multifactorial secondary to pre-existing constipation, chemotherapy reaction, and abdominal adhesions related to metastatic gallbladder disease. Patient is admitted to the medical floor. She will be provided maintenance IV fluids. Antiemetics and analgesics as needed. NG tube has been removed. Tolerated clear liquid diet well; will advance to full liquids. We will monitor chemistries and replace electrolytes as needed. Surgery is consulted; appreciate their assistance. Discussed with Dr. Yeung; patient is a poor surgical candidate. He recommends conservative management. 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 Tadeo as an outpatient. We will consult oncology; appreciate their assistance. Primary management per their expertise. (3) Abdominal pain Qualifiers: Abdominal location: unspecified location Qualified Code(s): R10.9 - Unspecified abdominal pain Is this a current diagnosis for this admission?: Yes Plan: Resolved. Secondary to #1 and 2 Evaluation management as above. (4) Nausea and vomiting Qualifiers: Vomiting type: unspecified Vomiting Intractability: intractable Qualified Code(s): R11.2 - Nausea with vomiting, unspecified Is this a current diagnosis for this admission?: Yes Plan: Resolved. Secondary to #1. Management as above. (5) Anxiety Is this a current diagnosis for this admission?: Yes Plan: Reassurance. IV Ativan as needed. (6) COPD (chronic obstructive pulmonary disease) Qualifiers: COPD type: unspecified COPD Qualified Code(s): J44.9 - Chronic obstructive pulmonary disease, unspecified Is this a current diagnosis for this admission?: Yes Plan: Stable and without exacerbation at this time. Breo and Incruse As needed nebulizer treatments. Supplemental oxygen as needed to maintain saturations greater than 89%. Patient utilizes 2 L via nasal cannula when sleeping at home. Pulmonary toilet. (7) Diabetes Qualifiers: Diabetes mellitus type: type 2 Diabetes mellitus senior care insulin use: without senior care use Diabetes mellitus complication status: without complication Qualified Code(s): E11.9 - Type 2 diabetes mellitus without complications Is this a current diagnosis for this admission?: Yes Plan: Currently n.p.o. Hold oral anti-hyperglycemics while admitted. Accu-Cheks every 6 hours with Humalog for sliding scale coverage. Hypoglycemia protocol in place. (8) Hypokalemia Is this a current diagnosis for this admission?: Yes Plan: Secondary to GI losses and poor p.o. intake. Received oral and IV replacement today. Follow-up chemistry. - Time Time Spent with patient: 35 or more minutes Medications reviewed and adjusted accordingly: Yes Anticipated discharge: Home Within: within 24 hours
--- NOTE | 2019-03-25 17:02 | PDOC PROGRESS REPORT ---
Subjective Progress Note for:: 03/25/19 Reason For Visit: SBO, INTRACTABLE N/V, GALLBLADDER CA , ABD PAIN Patient feels better, having some bowel function, tolerating clear liquids. Physical Exam Vital Signs: Temp Pulse Resp BP Pulse Ox 97.4 F 82 14 108/64 97 03/25/19 11:30 03/25/19 14:30 03/25/19 14:30 03/25/19 11:30 03/25/19 14:30 Intake & Output 03/24/19 03/25/19 03/26/19 06:59 06:59 06:59 Intake Total 1000 2720 2934 Output Total 600 Balance 400 2720 2934 Weight 76.1 kg 76.7 kg General appearance: PRESENT: no acute distress GI/Abdominal exam: PRESENT: other - Abdomen soft non-tender no peritoneal signs no rigidity. Scars consistent with previous surgery. Results Laboratory Results: 03/25/19 05:32 03/25/19 05:32 03/25/19 03/25/19 03/25/19 05:32 05:32 05:32 WBC 3.5 L RBC 3.28 L Hgb 10.4 L Hct 29.3 L MCV 89 MCH 31.6 MCHC 35.3 RDW 13.3 Plt Count 77 L Sodium 137.6 Potassium 2.7 L* Chloride 106 Carbon Dioxide 26 Anion Gap 6 BUN 4 L Creatinine 0.39 L Est GFR ( Amer) > 60 Glucose 83 Calcium 8.1 L Magnesium 1.7 Impressions: Abdomen/Pelvis CT 03/23/19 00:00 IMPRESSION: 1. Findings consistent with development of small bowel obstruction that may be related to an adhesion with transition point in the distal most ileum. 2. New ascites in the abdomen and pelvis that may be related to the obstruction. 3. Stable peritoneal implants and abdominal wall metastatic disease. KUB X-Ray 03/24/19 06:00 IMPRESSION: STABLE APPEARANCE. NASOGASTRIC TUBE DESCRIBED. NOT WELL VISUALIZED. MAY NEED TO BE REPOSITIONED. Assessment & Plan - Diagnosis (1) Abdominal pain Qualifiers: Abdominal location: unspecified location Qualified Code(s): R10.9 - Unspecified abdominal pain Is this a current diagnosis for this admission?: Yes Plan: Impression: GI symptoms have abated. Patient tolerating clear liquid, would like diet advanced. Abdomen is benign. Recommendations: 1. May advance diet as tolerated 2. We will sign off from a surgical standpoint; please reconsult if clinically indicated. - Time Time Spent: 30 to 50 Minutes
[2019-03-25] MEDS: ONDANSETRON HCL INJ/PF 4 MG/2 ML SDV IV PRN (17:31)
[2019-03-26] MEDS: LORAZEPAM INJ 2 MG/1 ML VIAL IV PRN (01:28)
[2019-03-26] MEDS: NORMAL SALINE 1000 ML 1,000 ML IV PRN (04:23)
[2019-03-26] MEDS: INSULIN LISPRO 100 UNIT/ML 3 ML VIAL SUBCUT SCH ×2 (08:35→12:54)
[2019-03-26] MEDS ORDERED: POTASSI CL 20 MEQ/50 ML RIDER 20 MEQ/50 ML RTUPB IV SCH (08:45)
[2019-03-26 09:09] VITALS: BP 118/69
[2019-03-26 09:22] LABS: ANION GAP 5 (5-19); CALCIUM 8.4 mg/dL (8.4-10.2); CARBON DIOXIDE 25 mmol/L (22-30); CHLORIDE 109 mmol/L (98-107); GLUCOSE 102 mg/dL (75-110); POTASSIUM 3.4 mmol/L (3.6-5.0)
[2019-03-26 09:23] LABS: BLOOD UREA NITROGEN < 2 mg/dL (7-20)
[2019-03-26] MEDS: FLUTICASONE/VILANTEROL 200-25 MCG/DOSE IH SCH (10:43)
[2019-03-26] MEDS: PANTOPRAZOLE SODIUM 40 MG VIAL IV SCH (10:44)
[2019-03-26] MEDS: HYDROCHLOROTHIAZIDE 12.5 MG TABLET PO SCH (10:45)
[2019-03-26] MEDS: UMECLIDINIUM BROMIDE 62.5 MCG/DOSE IH SCH (10:45)
[2019-03-26] MEDS: ALPRAZOLAM 0.5 MG TABLET PO SCH (10:45)
[2019-03-26] MEDS: LOSARTAN POTASSIUM 50 MG TABLET PO SCH (10:46)
--- NOTE | 2019-03-26 13:25 | PDOC DISCHARGE SUMMARY ---
Impression - Admit/DC Date/PCP Admission Date/Primary Care Provider: 03/23/19 08:48 JASWANT EDWARDS MD Discharge Date: 03/26/19 - Assessment Summary: She was admitted to the hospital on 03/23/2019 with abdominal pain. Cording to the patient she has had 3 days of nausea and vomiting with 1 day of abdominal pain. She just recently started chemotherapy within the last week. He is being followed by oncology for metastatic gallbladder disease. X-rays in the emergency room show possible early onset or developing small bowel obstruction. It was felt by surgery that this may be due to adhesions. Patient was seen by general surgery felt that she was a poor surgical candidate and recommended conservative management. Patient had an NG tube placed which made her feel better quickly patient also had IV fluids and was kept n.p.o. She was also seen by oncology, made a recommendation that as outpatient patient will have laxative added to the next cycle of chemotherapy Surgery signed off yesterday after the patient had bowel functions and was tolerating clear liquids. The patient continued to tolerate clear liquids and had a turkey sandwich for lunch. Abdominal pain, no vomiting. She is passing flatus with out difficulty. 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 Continue to slowly advance diet. Follow-up with primary care as needed. Follow-up with oncology as requested - Additional Information Discharge Diet: Full Liquids, Other (Comments) - Advance slowly Discharge Activity: Balance Activity w/Rest Referrals: MICHA CONNER MD [ACTIVE STAFF] - 04/01/19 11:30 am Home Medications: Albuterol Sulfate [Albuterol Sulfate 2.5mg/3 mL] 1 puff IH Q12 01/14/12 Metformin HCl [Metformin HCl ER] 500 mg PO BIDBS 03/06/18 Fluticasone/Salmeterol [Advair 250-50 Diskus 14 Dose/Diskus] 1 inh IH Q12 #1 inhaler 04/04/18 Irbesartan/Hydrochlorothiazide [Avalide 300-12.5 mg Tablet] 1 each PO DAILY #30 tablet 04/04/18 Tiotropium [place] [Spiriva Respimat] 2 puff IH DAILY #1 mist.inhal 04/04/18 Ondansetron HCl [Zofran 8 mg Tablet] 8 mg PO Q8HP PRN 05/28/18 Alprazolam 1 mg PO Q12 03/23/19 Chemo: Cisplatin/Gemcitabine 1 each IV ASDIR PRN 03/23/19 Amlodipine Besylate [Norvasc 5 mg Tablet] 2.5 mg PO DAILY 03/24/19 Acetaminophen [Tylenol 650 mg Supp] 650 mg CO Q4HP PRN supp.rect 03/26/19 History of Present Illiness History of Present Illness: CARMEN RUSSO is a 64 year old female Physical Exam Vital Signs: Temp Pulse Resp BP Pulse Ox 98.2 F 81 18 118/69 96 03/26/19 08:00 03/26/19 08:00 03/26/19 08:00 03/26/19 08:00 03/26/19 08:00 Intake & Output 03/25/19 03/26/19 03/27/19 06:59 06:59 06:59 Intake Total 2720 5579 Balance 2720 5579 Weight 76.7 kg 76.7 kg Results Laboratory Results: WBC 3.5 10^3/uL (4.0-10.5) L 03/25/19 05:32 RBC 3.28 10^6/uL (3.72-5.28) L 03/25/19 05:32 Hgb 10.4 g/dL (12.0-15.5) L 03/25/19 05:32 Hct 29.3 % (36.0-47.0) L 03/25/19 05:32 MCV 89 fl (80-97) 03/25/19 05:32 MCH 31.6 pg (27.0-33.4) 03/25/19 05:32 MCHC 35.3 g/dL (32.0-36.0) 03/25/19 05:32 RDW 13.3 % (11.5-14.0) 03/25/19 05:32 Plt Count 77 10^3/uL (150-450) L 03/25/19 05:32 Lymph % (Auto) 25.4 % (13-45) 03/23/19 02:55 [place] % (Auto) 1.4 % (3-13) L 03/23/19 02:55 Eos % (Auto) 1.6 % (0-6) 03/23/19 02:55 Baso % (Auto) 0.8 % (0-2) 03/23/19 02:55 Absolute Neuts (auto) 4.3 10^3/uL (1.7-8.2) 03/23/19 02:55 Absolute Lymphs (auto) 1.5 10^3/uL (0.5-4.7) 03/23/19 02:55 Absolute Monos (auto) 0.1 10^3/uL (0.1-1.4) 03/23/19 02:55 Absolute Eos (auto) 0.1 10^3/uL (0.0-0.6) 03/23/19 02:55 Absolute Basos (auto) 0.0 10^3/uL (0.0-0.2) 03/23/19 02:55 Seg Neutrophils % 70.8 % (42-78) 03/23/19 02:55 Sodium 138.8 mmol/L (137-145) 03/26/19 08:43 Potassium 3.4 mmol/L (3.6-5.0) L 03/26/19 08:43 Chloride 109 mmol/L (98-107) H 03/26/19 08:43 Carbon Dioxide 25 mmol/L (22-30) 03/26/19 08:43 Anion Gap 5 (5-19) 03/26/19 08:43 BUN < 2 mg/dL (7-20) L 03/26/19 08:43 Creatinine 0.43 mg/dL (0.52-1.25) L 03/26/19 08:43 Est GFR ( Amer) > 60 (>60) 03/26/19 08:43 Est GFR (MDRD) Non-Af > 60 (>60) 03/26/19 08:43 Glucose 102 mg/dL (75-110) 03/26/19 08:43 POC Glucose 115 mg/dL (70-110) H 03/26/19 12:45 Calcium 8.4 mg/dL (8.4-10.2) 03/26/19 08:43 Magnesium 1.7 mg/dL (1.6-2.3) 03/25/19 05:32 Total Bilirubin 0.8 mg/dL (0.2-1.3) 03/23/19 02:55 Direct Bilirubin 0.1 mg/dL (0.0-0.4) 03/23/19 02:55 Neonat Total Bilirubin Not Reportable 03/23/19 02:55 Neonat Direct Bilirubin Not Reportable 03/23/19 02:55 Neonat Indirect Bili Not Reportable 03/23/19 02:55 AST 69 U/L (14-36) H 03/23/19 02:55 ALT 126 U/L (<35) H 03/23/19 02:55 Alkaline Phosphatase 231 U/L (38-126) H 03/23/19 02:55 Total Protein 6.0 g/dL (6.3-8.2) L 03/23/19 02:55 Albumin 3.5 g/dL (3.5-5.0) 03/23/19 02:55 Lipase 24.1 U/L (23-300) 03/23/19 02:55 Urine Color YELLOW 03/23/19 00:20 Urine Appearance SLIGHTLY-CLOUDY 03/23/19 00:20 Urine pH 7.0 (5.0-9.0) 03/23/19 00:20 Ur Specific [place] 1.010 03/23/19 00:20 Urine Protein NEGATIVE mg/dL (NEGATIVE) 03/23/19 00:20 Urine Glucose (UA) NEGATIVE mg/dL (NEGATIVE) 03/23/19 00:20 Urine Ketones NEGATIVE mg/dL (NEGATIVE) 03/23/19 00:20 Urine Blood NEGATIVE (NEGATIVE) 03/23/19 00:20 Urine Nitrite NEGATIVE (NEGATIVE) 03/23/19 00:20 Urine Bilirubin NEGATIVE (NEGATIVE) 03/23/19 00:20 Urine Urobilinogen 4.0 mg/dL (<2.0) H 03/23/19 00:20 Ur Leukocyte Esterase NEGATIVE (NEGATIVE) 03/23/19 00:20 Urine WBC (Auto) 3 /HPF 03/23/19 00:20 Urine RBC (Auto) 0 /HPF 03/23/19 00:20 U Hyaline Cast (Auto) 1 /LPF 03/23/19 00:20 Urine Bacteria (Auto) TRACE /HPF 03/23/19 00:20 Squamous Epi Cells Auto 3 /HPF 03/23/19 00:20 Urine Mucus (Auto) RARE /LPF 03/23/19 00:20 Urine Ascorbic Acid NEGATIVE (NEGATIVE) 03/23/19 00:20 Impressions: Abdomen/Pelvis CT 03/23/19 00:00 IMPRESSION: 1. Findings consistent with development of small bowel obstruction that may be related to an adhesion with transition point in the distal most ileum. 2. New ascites in the abdomen and pelvis that may be related to the obstruction. 3. Stable peritoneal implants and abdominal wall metastatic disease. KUB X-Ray 03/23/19 00:00 IMPRESSION: NG tube in good position in the stomach. KUB X-Ray 03/24/19 06:00 IMPRESSION: STABLE APPEARANCE. NASOGASTRIC TUBE DESCRIBED. NOT WELL VISUALIZED. MAY NEED TO BE REPOSITIONED. Stroke Is this a Stroke Patient?: No Acute Heart Failure - Is this a Heart Failure Patient?: No
== END 2019-03-26 13:56 | disposition home or self-care (01) | DRG 389 ==
LOC: ER 23:28 → EH 03-23 08:48 → 3W 03-23 14:15
PROVIDERS: ADMIT Internal Medicine; ATTEND Internal Medicine
PROC: 0D9670Z Drainage of Stomach with Drainage Device, Via Natural or Artificial Opening (ICD-10-PCS; principal; 2019-03-23)
DX: K56.51 Intestinal adhesions [bands], with partial obstruction (principal); C23 Malignant neoplasm of gallbladder; C78.6 Secondary malignant neoplasm of retroperitoneum and peritoneum; E87.1 Hypo-osmolality and hyponatremia; R18.8 Other ascites; E87.2 Acidosis; E87.6 Hypokalemia; Z96.89 Presence of other specified functional implants; E86.0 Dehydration; I10 Essential (primary) hypertension; E11.9 Type 2 diabetes mellitus without complications; J44.9 Chronic obstructive pulmonary disease, unspecified; F41.1 Generalized anxiety disorder; Z90.49 Acquired absence of other specified parts of digestive tract; Z79.84 Long term (current) use of oral hypoglycemic drugs; Z79.899 Other long term (current) drug therapy; Z88.0 Allergy status to penicillin
CPT/HCPCS: 36415; 74018; 74177; 80048; 80053; 81001; 82962; 83690; 83735; 85025; 85027; 96361; 96374; 96375; 96376; 99285; C9113; J1644; J2060; J2405; J3360; J3480; J3490; J7030; S0028

== ENCOUNTER 2019-04-05 12:11 | Inpatient (IN) | payer OTHER ==
[2019-04-05] MEDS ORDERED: ONDANSETRON HCL INJ/PF 4 MG/2 ML SDV IV ONE (13:15)
[2019-04-05] MEDS ORDERED: NORMAL SALINE 1000 ML 1,000 ML IV ONE ×2 (13:15→18:23)
--- NOTE | 2019-04-05 13:18 | ER Document Report ---
ED Medical Screen (RME) - General Chief Complaint: Abdominal Pain Stated Complaint: ABDOMINAL PAIN Time Seen by Provider: 04/05/19 13:10 Primary Care Provider: JASWANT EDWARDS MD [Primary Care Provider] - Follow up as needed Notes: HPI: 64-year-old female with gallbladder cancer history who follows with Dr. Prince presenting with increasing nausea, upper abdominal pain over the last 1 to 2 days. Patient also had a fever this morning. Patient received her last chemo treatment 4 days ago. Patient has been seen in the oncology office the last 2 days receiving IV fluids. Patient with recent history of small bowel obstruction I have greeted and performed a rapid initial assessment of this patient. A comprehensive ED assessment and evaluation of the patient, analysis of test results and completion of the medical decision making process will be conducted by additional ED providers PHYSICAL EXAMINATION: GENERAL: Well-appearing, well-nourished and in moderate acute distress. HEAD: Atraumatic, normocephalic. EYES: sclera anicteric, conjunctiva are normal. ENT: Moist mucous membranes. NECK: Normal range of motion LUNGS: Normal work of breathing, clear to auscultation HEART: 2+ radial pulses bilaterally, mild tachycardia. Port in the left chest wall ABD: limited by positioning for exam in triage. Mild tenderness to the upper abdomen on palpation EXTREMITIES: no pitting or edema. No cyanosis. NEUROLOGICAL: No focal neurological deficits. Moves all extremities spontaneously and on command. PSYCH: Normal mood, normal affect. SKIN: Warm, Dry, normal turgor, no rashes or lesions noted. TRAVEL OUTSIDE OF THE [place] IN LAST 30 DAYS: No - Related Data Allergies/Adverse Reactions: Penicillins Adverse Reaction (Severe, Verified 04/05/19 13:09) WHEEZE metronidazole [From Flagyl] Adverse Reaction (Verified 04/05/19 13:09) Past Medical History - Social History Chew tobacco use (# tins/day): No Frequency of alcohol use: None Drug Abuse: None Family history: Reviewed & Not Pertinent - Past Medical History Cardiac Medical History: Reports: Hx Hypertension Denies: Hx Coronary Artery Disease, Hx Heart Attack Pulmonary Medical History: Reports: Hx Bronchitis, Hx COPD, Hx Pneumonia Denies: Hx Asthma Neurological Medical History: Denies: Hx Cerebrovascular Accident, Hx Seizures Endocrine Medical History: Reports: Hx Diabetes Mellitus Type 2 - borderline Renal/ Medical History: Denies: Hx Peritoneal Dialysis Musculoskeltal Medical History: Denies Hx Arthritis Past Surgical History: Reports: Hx Orthopedic Surgery - left foot/ titanium plates placed, Hx Tonsillectomy, Other - Radical cholecystectomy, liver resection, periportal lymphadenectomy. Denies: Hx Hysterectomy - Immunizations Hx Diphtheria, Pertussis, Tetanus Vaccination: Yes Physical Exam - Vital signs Vitals: Temp Pulse Resp BP Pulse Ox 98.8 F 113 H 20 120/71 94 04/05/19 12:22 04/05/19 12:04/05/19 12:04/05/19 12:04/05/19 12:22 Course - Vital Signs Vital signs: Temp Pulse Resp BP Pulse Ox 98.8 F 113 H 20 120/71 94 04/05/19 12:22 04/05/19 12:22 04/05/19 12:22 04/05/19 12:22 04/05/19 12:22 Doctor's Discharge - Discharge Referrals: JASWANT EDWARDS MD [Primary Care Provider] - Follow up as needed
--- NOTE | 2019-04-05 13:57 | RADIOLOGY REPORT (SQ) ---
EXAM DESCRIPTION: KUB/ABDOMEN (SINGLE VIEW) COMPLETED DATE/TIME: 04/05/2019 1:43 pm REASON FOR STUDY: upper abd pain COMPARISON: 03/24/2019, 03/23/2019 NUMBER OF VIEWS: One view. TECHNIQUE: Supine radiographic image of the abdomen acquired. LIMITATIONS: None. FINDINGS: BOWEL GAS PATTERN: Multiple loops of dilated small bowel throughout the central abdomen me asuring up to 4.7 cm. This has increased since prior exams. CALCIFICATIONS: No suspicious calcifications. SOFT TISSUES: No gross mass or suggestion of organomegaly. HARDWARE: None in the abdomen. BONES: No acute fracture. No worrisome bone lesions. OTHER: Radiopaque ovoid densities within the right and left upper quadrants compatible with ingested pills. IMPRESSION: Small bowel obstruction with small bowel loops throughout the central abdomen measuring up to 4.7 cm. TECHNICAL DOCUMENTATION: JOB ID: [id number] 2010 [employer]- All Rights Reserved Reading location - IP/workstation name: [email or web address]
--- NOTE | 2019-04-05 14:00 | RADIOLOGY REPORT (SQ) ---
EXAM DESCRIPTION: CHEST 2 VIEWS COMPLETED DATE/TIME: 04/05/2019 1:49 pm REASON FOR STUDY: upper abd pain fever COMPARISON: 05/15/2018 EXAM PARAMETERS: NUMBER OF VIEWS: two views TECHNIQUE: Digital Frontal and Lateral radiographic views of the chest acquired. RADIATION DOSE: NA LIMITATIONS: none FINDINGS: LUNGS AND PLEURA: Low lung volumes linear left basilar opacity, likely atelectasis. No pl eural effusion or pneumothorax. MEDIASTINUM AND HILAR STRUCTURES: No masses or contour abnormalities. HEART AND VASCULAR STRUCTURES: Normal heart size. BONES: No acute findings. HARDWARE: Left subclavian base chest port with catheter tip at proximal SVC. OTHER: Dilated small bowel loops. IMPRESSION: Stable left basilar atelectasis/scarring. No evidence of acute intrathoracic process. Dilated small bowel loops, better evaluated on same day abdominal radiograph. TECHNICAL DOCUMENTATION: JOB ID: [id number] 2011 [employer]- All Rights Reserved Reading location - IP/workstation name: [email or web address]
[2019-04-05] MEDS ORDERED: MORPHINE SULFATE 10 MG/ML INJ IV ONE (15:29)
--- NOTE | 2019-04-05 15:51 | ER Document Report ---
ED General - General Chief Complaint: Abdominal Pain Stated Complaint: ABDOMINAL PAIN Time Seen by Provider: 04/05/19 13:10 Primary Care Provider: JASWANT EDWARDS MD [Primary Care Provider] - Follow up as needed Mode of Arrival: Ambulatory Information source: Patient TRAVEL OUTSIDE OF THE [place] IN LAST 30 DAYS: No - HPI Onset: Yesterday Onset/Duration: Gradual Quality of pain: Achy, Pressure Severity: Moderate Pain Level: 3 Associated symptoms: Nausea, Other - decreased stool output Exacerbated by: Food Relieved by: Denies Similar symptoms previously: Yes - with prior SBO Recently seen / treated by doctor: Yes - patient admitted 2 weeks ago for the same Notes: 64 year old female with a history of Gallbladder Cancer s/p Cholecystectomy in Feb 2018 who is currently undergoing chemotherapy (last treatment 4 days ago), HTN, DM, COPD here for abdominal distention, abdominal pain, nausea since yesterday. The patient was just admitted for an SBO 2 weeks ago (resolved with an NG tube) and this feels the same to her. The patient also says she had a fever last night to 102.4F. The patient denies cough, congestion, diarrhea, urinary symptoms. The patient denies known sick contacts. - Related Data Allergies/Adverse Reactions: Penicillins Adverse Reaction (Severe, Verified 04/05/19 13:09) WHEEZE metronidazole [From Flagyl] Adverse Reaction (Verified 04/05/19 13:09) Past Medical History - General Information source: Patient - Social History Smoking Status: Never Smoker Chew tobacco use (# tins/day): No Frequency of alcohol use: None Drug Abuse: None Family History: Reviewed & Not Pertinent Patient has suicidal ideation: No Patient has homicidal ideation: No - Past Medical History Cardiac Medical History: Reports: Hx Hypertension Denies: Hx Coronary Artery Disease, Hx Heart Attack Pulmonary Medical History: Reports: Hx Bronchitis, Hx COPD, Hx Pneumonia Denies: Hx Asthma Neurological Medical History: Denies: Hx Cerebrovascular Accident, Hx Seizures Endocrine Medical History: Reports: Hx Diabetes Mellitus Type 2 - borderline Renal/ Medical History: Denies: Hx Peritoneal Dialysis Musculoskeletal Medical History: Denies Hx Arthritis Past Surgical History: Reports: Hx Orthopedic Surgery - left foot/ titanium plates placed, Hx Tonsillectomy, Other - Radical cholecystectomy, liver resection, periportal lymphadenectomy. Denies: Hx Hysterectomy - Immunizations Hx Diphtheria, Pertussis, Tetanus Vaccination: Yes Hx Pneumococcal Vaccination: 02/06/13 Review of Systems - Review of Systems Constitutional: No symptoms reported EENT: No symptoms reported Cardiovascular: No symptoms reported Respiratory: No symptoms reported Gastrointestinal: Abdomen distended, Abdominal pain, Nausea, Other - decreased stool output Genitourinary: No symptoms reported Female Genitourinary: No symptoms reported Musculoskeletal: No symptoms reported Skin: No symptoms reported Hematologic/Lymphatic: No symptoms reported Neurological/Psychological: No symptoms reported -: Yes All other systems reviewed and negative Physical Exam - Vital signs Vitals: Temp Pulse Resp BP Pulse Ox 98.8 F 113 H 20 120/71 94 04/05/19 12:22 04/05/19 12:22 04/05/19 12:22 04/05/19 12:22 04/05/19 12:22 - Notes Notes: GENERAL: Chronically ill-appearing, well-nourished and in no acute distress. HEAD: Atraumatic, normocephalic. EYES: Pupils equal round and reactive to light, extraocular movements intact, sclera anicteric, conjunctiva are normal. ENT: TMs normal, nares patent, oropharynx clear without exudates. Moist mucous membranes. NECK: Normal range of motion, supple without lymphadenopathy or JVD. LUNGS: Breath sounds clear to auscultation bilaterally and equal. No wheezes rales or rhonchi. HEART: Regular rate and rhythm without murmurs, rubs or gallops. ABDOMEN: Distended, hyperactive bowel sounds, soft, moderate tenderness throughout, no guarding, no rebound. No masses appreciated. EXTREMITIES: Normal range of motion, no pitting or edema. No clubbing or cyanosis. NEUROLOGICAL: Cranial nerves II through XII grossly intact. Normal speech, normal gait. PSYCH: Normal mood, normal affect. SKIN: Warm, Dry, normal turgor, no rashes or lesions noted. Course - Re-evaluation Re-evalutation: 04/05/19 16:03 Dr. Michaud of Surgery was consulted and he saw the patient in the ER. Dr. Michaud would like an oral contrasted CT scan and he would like the patient admitted to the Medical Service. Plan for likely NG tube after CT scan. The patient apparently had a fever last night so will perform a sepsis work up as well. Patient treated with fluids, morphine, zofran in the ER. 04/05/19 17:18 Patient's K is low at 3.2. Will supp with 20meq of IV potassium. Patient's Na is 129. Will give NS and monitor. Patient is waiting on her CT. 04/05/19 19:46 Patient had an NG tube placed per request of Dr. Michaud after her CT. Patient admitted to Hospitalist service. - Vital Signs Vital signs: Temp Pulse Resp BP Pulse Ox 98.8 F 113 H 21 H 110/71 97 04/05/19 12:22 04/05/19 12:22 04/05/19 17:01 04/05/19 17:01 04/05/19 17:01 - Laboratory Result Diagrams: 04/05/19 16:20 04/05/19 16:20 Laboratory results interpreted by me: 04/05/19 04/05/19 04/05/19 13:50 16:20 16:20 WBC 2.2 L RBC 3.51 L Hgb 10.8 L Hct 31.4 L Abs Neuts (Manual) 1.2 L Sodium 129.7 L Potassium 3.2 L Chloride 95 L Creatinine 0.36 L Total Bilirubin 2.1 H Direct Bilirubin 1.4 H AST 53 H ALT 67 H Alkaline Phosphatase 269 H Total Protein 5.6 L Albumin 2.9 L Lipase < 10.0 L Urine Ketones TRACE H Urine Urobilinogen 4.0 H - Diagnostic Test Radiology reviewed: Image reviewed, Reports reviewed Discharge - Discharge Clinical Impression: Small bowel obstruction Condition: Stable Disposition: ADMITTED INPATIENT Admitting Provider: Rajinder (Hospitalist) Unit Admitted: Medical Floor Referrals: JASWANT EDWARDS MD [Primary Care Provider] - Follow up as needed
[2019-04-05] MEDS ORDERED: ONDANSETRON HCL INJ/PF 4 MG/2 ML SDV ONE (16:43)
[2019-04-05 16:45] LABS: HEMATOCRIT 31.4 % (36.0-47.0); HEMOGLOBIN 10.8 g/dL (12.0-15.5); MEAN CORPUSCULAR HEMOGLOBIN 30.9 pg (27.0-33.4); MEAN CORPUSCULAR HGB CONC 34.5 g/dL (32.0-36.0); MEAN CORPUSCULAR VOLUME 90 fl (80-97); PLATELET COUNT 187 10^3/uL (150-450); RED BLOOD COUNT 3.51 10^6/uL (3.72-5.28); WHITE BLOOD COUNT 2.2 10^3/uL (4.0-10.5)
[2019-04-05 17:01] LABS: ALBUMIN 2.9 g/dL (3.5-5.0); ALKALINE PHOSPHATASE 269 U/L (38-126); ANION GAP 9 (5-19); ASPARTATE AMINO TRANSFERASE 53 U/L (14-36); BILIRUBIN,DIRECT 1.4 mg/dL (0.0-0.4); BILIRUBIN,TOTAL 2.1 mg/dL (0.2-1.3); BLOOD UREA NITROGEN 13 mg/dL (7-20); CALCIUM 8.4 mg/dL (8.4-10.2); CARBON DIOXIDE 26 mmol/L (22-30); CHLORIDE 95 mmol/L (98-107); GLUCOSE 89 mg/dL (75-110); POTASSIUM 3.2 mmol/L (3.6-5.0); TOTAL PROTEIN 5.6 g/dL (6.3-8.2)
[2019-04-05] MEDS ORDERED: POTASSI CL 20 MEQ/50 ML RIDER 20 MEQ/50 ML RTUPB IV ONE (17:17)
[2019-04-05 17:21] LABS: ABSOLUTE LYMPHOCYTES# (MANUAL) 0.9 10^3/uL (0.5-4.7); ABSOLUTE MONOCYTES # (MANUAL) 0.1 10^3/uL (0.1-1.4); BAND NEUTROPHILS % (MANUAL) 4 % (3-5); BASOPHILS % (MANUAL) 0 % (0-2); EOSINOPHILS % (MANUAL) 0 % (0-6); LYMPHOCYTES % (MANUAL) 41 % (13-45); MONOCYTES % (MANUAL) 5 % (3-13); SEGMENTED NEUTROPHILS % (MAN) 50 % (42-78); TOTAL CELLS COUNTED 100
[2019-04-05 17:22] LABS: RBC MORPHOLOGY COMMENT NORMO-CYTIC/CHROMIC
[2019-04-05 17:23] LABS: PLATELET COMMENT ADEQUATE
--- NOTE | 2019-04-05 17:27 | PDOC CONSULTATION ---
Consultation Consult Date: 04/05/19 Attending physician:: KELLY Soler ANNE Provider Consulted: MARLENI DESHPANDE Consult reason:: small bowel obstruction History of Present Illness Admission Date/PCP: JASWANT EDWARDS MD History of Present Illness: CARMEN RUSSO is a 64 year old female Past Medical History Cardiac Medical History: Reports: Hypertension Denies: Coronary Artery Disease, Myocardial Infarction Pulmonary Medical History: Reports: Bronchitis, Chronic Obstructive Pulmonary Disease (COPD), Pneumonia Denies: Asthma Neurological Medical History: Denies: Seizures Endocrine Medical History: Reports: Diabetes Mellitus Type 2 - borderline Malignancy Medical History: Reports: Other - gallbladder cancer GI Medical History: Reports: None, Other - gallbladder cancer, metatstatic Denies: Diverticulitis Musculoskeltal Medical History: Denies: Arthritis Hematology: Reports: Anemia Past Surgical History Past Surgical History: Reports: Orthopedic Surgery - left foot/ titanium plates placed, Tonsillectomy, Other - Radical cholecystectomy, liver resection, periportal lymphadenectomy Denies: Hysterectomy Social History Smoking Status: Never Smoker Electronic Cigarette use?: No Frequency of Alcohol Use: None Hx Recreational Drug Use: No Drugs: None Hx Prescription Drug Abuse: No Family History Family History: Reviewed & Not Pertinent Parental Family History Reviewed: No Children Family History Reviewed: NA Sibling(s) Family History Reviewed.: NA Medication/Allergy Home Medications: Albuterol Sulfate [Albuterol Sulfate 2.5mg/3 mL] 1 puff IH Q12 01/14/12 Metformin HCl [Metformin HCl ER] 500 mg PO BIDBS 03/06/18 Fluticasone/Salmeterol [Advair 250-50 Diskus 14 Dose/Diskus] 1 inh IH Q12 #1 inhaler 04/04/18 Irbesartan/Hydrochlorothiazide [Avalide 300-12.5 mg Tablet] 1 each PO DAILY #30 tablet 04/04/18 Tiotropium [place] [Spiriva Respimat] 2 puff IH DAILY #1 mist.inhal 04/04/18 Ondansetron HCl [Zofran 8 mg Tablet] 8 mg PO Q8HP PRN 05/28/18 Alprazolam 1 mg PO Q12 03/23/19 Chemo: Cisplatin/Gemcitabine 1 each IV ASDIR PRN 03/23/19 Amlodipine Besylate [Norvasc 5 mg Tablet] 2.5 mg PO DAILY 03/24/19 Acetaminophen [Tylenol 650 mg Supp] 650 mg TX Q4HP PRN supp.rect 03/26/19 Allergies/Adverse Reactions: Penicillins Adverse Reaction (Severe, Verified 04/05/19 13:09) WHEEZE metronidazole [From Flagyl] Adverse Reaction (Verified 04/05/19 13:09) Review of Systems Constitutional: PRESENT: fatigue, weakness Eyes: ABSENT: as per HPI, visual disturbances, other Ears: ABSENT: as per HPI, hearing changes, other Breasts: ABSENT: as per HPI, other Cardiovascular: ABSENT: as per HPI, chest pain, dyspnea on exertion, edema, orthropnea, palpitations, other Respiratory: ABSENT: as per HPI, cough, dyspnea, hemoptysis, sputum, other Gastrointestinal: PRESENT: abdominal pain, bloating, nausea, vomiting Integumentary: ABSENT: as per HPI, diaphoresis, erythema, lesions, pruritus, rash, wounds, other Neurological: ABSENT: as per HPI, abnormal gait, abnormal movements, abnormal speech, confusion, convulsions, dizziness, focal weakness, frequent falls, lack of coordination, memory loss, numbness, paresthesias, restless legs, syncope, tingling, tremor(s), vertigo, weakness, other Psychiatric: ABSENT: as per HPI, anxiety, depression, hallucinations, homidical ideation, suicidal ideation, other Endocrine: ABSENT: as per HPI, cold intolerance, flushing, heat intolerance, menstrual abnormalities, polydipsia, polyphagia, polyuria, other Hematologic/Lymphatic: ABSENT: as per HPI, easy bleeding, easy bruising, lymphadenopathy, other Allergic/Immunologic: ABSENT: as per HPI, seasonal rhinorrhea, other Physical Exam Vital Signs: Temp Pulse Resp BP Pulse Ox 98.8 F 113 H 20 120/71 94 04/05/19 12:22 04/05/19 12:22 04/05/19 12:22 04/05/19 12:22 04/05/19 12:22 Intake & Output 04/04/19 04/05/19 04/06/19 06:59 06:59 06:59 Weight 82.2 kg General appearance: PRESENT: no acute distress, mild distress Head exam: PRESENT: normocephalic Eye exam: PRESENT: EOMI Ear exam: PRESENT: normal external ear exam Mouth exam: PRESENT: moist Teeth exam: PRESENT: poor dentation Neck exam: PRESENT: full ROM Respiratory exam: PRESENT: clear to auscultation christian Cardiovascular exam: PRESENT: RRR Pulses: PRESENT: normal radial pulses, normal femoral pulses Vascular exam: PRESENT: normal capillary refill GI/Abdominal exam: PRESENT: distended, hypoactive bowel sounds, soft Rectal exam: PRESENT: deferred Gentrourinary exam: PRESENT: other Extremities exam: PRESENT: full ROM Musculoskeletal exam: PRESENT: full ROM Neurological exam: PRESENT: alert, awake Psychiatric exam: PRESENT: appropriate affect Skin exam: PRESENT: dry Results Laboratory Results: 04/05/19 16:20 04/05/19 04/05/19 04/05/19 16:20 16:20 16:20 Seg Neutrophils % Not Reportable Sodium 129.7 L Potassium 3.2 L Chloride 95 L Carbon Dioxide 26 Anion Gap 9 BUN 13 Creatinine 0.36 L Est GFR ( Amer) > 60 Glucose 89 Lactic Acid 0.8 Calcium 8.4 Magnesium Total Bilirubin 2.1 H AST 53 H Alkaline Phosphatase 269 H Total Protein 5.6 L Albumin 2.9 L Lipase < 10.0 L 04/05/19 16:20 Seg Neutrophils % Sodium Potassium Chloride Carbon Dioxide Anion Gap BUN Creatinine Est GFR ( Amer) Glucose Lactic Acid Calcium Magnesium 1.9 Total Bilirubin AST Alkaline Phosphatase Total Protein Albumin Lipase Impressions: Chest X-Ray 04/05/19 13:14 IMPRESSION: Stable left basilar atelectasis/scarring. No evidence of acute intrathoracic process. Dilated small bowel loops, better evaluated on same day abdominal radiograph. KUB X-Ray 04/05/19 13:16 IMPRESSION: Small bowel obstruction with small bowel loops throughout the central abdomen measuring up to 4.7 cm. Assessment & Plan - Plan Summary Plan Summary: recurrent sbo secondary to metatstic gallbladder cancer recommend ct with water soluble contrast ng suction if stomach distended on ct npo iv hydration may need to consider palliative enteroenterostomy if it doesnt resolve Disscussed iwstephen Tadeo.
--- NOTE | 2019-04-05 18:54 | RADIOLOGY REPORT (SQ) ---
EXAM DESCRIPTION: CT ABD/PELVIS WITH IV ORAL COMPLETED DATE/TIME: 04/05/2019 6:11 pm REASON FOR STUDY: eval for small bowel obstruction COMPARISON: None. TECHNIQUE: CT scan of the abdomen and pelvis performed using helical scanning technique with dynamic intravenous contrast injection. Oral contrast. Images reviewed with lung, soft tissue, and bone win dows. Reconstructed coronal and sagittal MPR images reviewed. Delayed images for evaluation of the ur inary system also acquired. All images stored on PACS. All CT scanners at this facility use dose modulation, iterative reconstruction, and/or weight based d osing when appropriate to reduce radiation dose to as low as reasonably achievable (ALARA). [facility]: Dose Right [facility]: CareDose [facility]: Dose Right [facility]: Teradose 4D [facility]: Secret Escapes CONTRAST TYPE AND DOSE: contrast/concentration: Isovue mg/ml; Total Contrast Delivered: 73.0 ml; To robbi Saline Delivered: 66.0 ml RENAL FUNCTION: BUN 13 creatinine 0.35 RADIATION DOSE: CT Rad equipment meets quality standard of care and radiation dose reduction techniq ues were employed. CTDIvol: 12.3 - 17.1 mGy. DLP: 1660 mGy-cm.. LIMITATIONS: None. FINDINGS: LOWER CHEST: No significant findings. No nodules or infiltrates. LIVER: Normal size. No masses. No dilated ducts. SPLEEN: Normal size. No focal lesions. PANCREAS: Considerable fatty replacement. No mass or inflammation. GALLBLADDER: Surgically absent. ADRENAL GLANDS: No significant masses or asymmetry. RIGHT KIDNEY AND URETER: No solid masses. No significant calcifications. No hydronephrosis or hyd roureter. LEFT KIDNEY AND URETER: No solid masses. No significant calcifications. No hydronephrosis or hydr oureter. AORTA AND VESSELS: No aneurysm. No dissection. Renal arteries, SMA, celiac without stenosis. RETROPERITONEUM: No retroperitoneal adenopathy, hemorrhage or masses. BOWEL AND PERITONEAL CAVITY: Dilated loops of small bowel are seen into the right side of the abdomen . No mass is appreciated. The transition point may be present in the distal ileum. APPENDIX: Not identified. PELVIS: No mass. No free fluid. Normal bladder. ABDOMINAL WALL: No masses. No hernias. BONES: No significant or acute findings. OTHER: No other significant finding. IMPRESSION: Distal small bowel obstruction. TECHNICAL DOCUMENTATION: JOB ID: [id number] Quality ID # [id number]: Final reports with documentation of one or more dose reduction techniques (e.g., Au tomated exposure control, adjustment of the mA and/or kV according to patient size, use of iterative reconstruction technique) 2010 [employer]- All Rights Reserved Reading location - IP/workstation name: [email or web address]
[2019-04-05 19:24] LABS: APPEARANCE,URINE SLIGHTLY-CLOUDY; BILIRUBIN,URINE NEGATIVE (NEGATIVE); CALCIUM OXALATE CRYSTALS,URINE FEW /HPF; COLOR,URINE AMBER; GLUCOSE, URINE NEGATIVE (NEGATIVE); KETONES,URINE TRACE mg/dL (NEGATIVE); LEUKOCYTE ESTERASE,URINE NEGATIVE (NEGATIVE); NITRITE,URINE NEGATIVE (NEGATIVE); PROTEIN,URINE NEGATIVE (NEGATIVE); URINE SPECIFIC GRAVITY 1.024
[2019-04-05] MEDS ORDERED: GLUCAGON,HUMAN RECOMB 1 MG INJ IM PRN (19:46)
[2019-04-05] MEDS ORDERED: DEXTROSE 40% GEL 15 GM TUBE PO PRN ×2 (19:46)
[2019-04-05] MEDS ORDERED: DEXTROSE 50%-WATER 25 GM/50 ML DISP.SYRIN IV PRN (19:46)
[2019-04-05] MEDS ORDERED: IPRATROPIUM/ALBUTEROL 0.5-2.5 MG/3 ML AMPUL NEB PRN (19:46)
[2019-04-05] MEDS ORDERED: MORPHINE SULFATE 10 MG/ML INJ IV PRN (21:26)
[2019-04-05] MEDS: HEPARIN SOD (PORCINE) 5,000 UNIT/ML 1 ML VIAL SUBCUT SCH (22:03)
[2019-04-05] MEDS: PANTOPRAZOLE SODIUM 40 MG VIAL IV SCH (22:03)
[2019-04-05] MEDS: POTASSI CL 20 MEQ/50 ML RIDER 20 MEQ/50 ML RTUPB IV SCH (22:04)
[2019-04-05] MEDS: MORPHINE SULFATE 10 MG/ML INJ IV PRN (22:18)
[2019-04-05] MEDS: ONDANSETRON HCL INJ/PF 4 MG/2 ML SDV IV PRN (22:18)
[2019-04-06] MEDS: KETOROLAC TROMETHAMINE INJ/PF 30 MG/1 ML SDV IV PRN (00:17)
[2019-04-06] MEDS: INSULIN LISPRO 100 UNIT/ML 3 ML VIAL SUBCUT SCH ×4 (00:17→19:43)
[2019-04-06] MEDS: POTASSI CL 20 MEQ/50 ML RIDER 20 MEQ/50 ML RTUPB IV SCH ×3 (00:25→08:08)
[2019-04-06] MEDS ORDERED: DIAZEPAM INJ 10 MG/2 ML DISP.SYRIN IV PRN (03:51)
--- NOTE | 2019-04-06 04:01 | PDOC H&P ---
History of Present Illness Admission Date/PCP: 04/05/19 19:52 JASWANT EDWARDS MD Patient complains of: Abdominal pain and nausea History of Present Illness: CARMEN RUSSO is a 64 year old female with a past medical history of COPD, anxiety, hypertension, diabetes, metastatic gallbladder cancer and recurrent small bowel obstruction. She presents with 24 to 48 hours of abdominal pain and distention with nausea and vomiting. In the emergency department she is found to have small bowel obstruction with hypokalemia and hyponatremia. NG tube is placed producing 500 mL of gastric content aspirate. She denies exceptional constipation and CT does not reveal impaction. She is evaluated by surgery and felt to be a poor candidate for surgery unless failing conservative management. She is referred to the hospitalist for admission Past Medical History Cardiac Medical History: Reports: Hypertension Denies: Coronary Artery Disease, Myocardial Infarction Pulmonary Medical History: Reports: Bronchitis, Chronic Obstructive Pulmonary Disease (COPD), Pneumonia Denies: Asthma Neurological Medical History: Denies: Seizures Endocrine Medical History: Reports: Diabetes Mellitus Type 2 - borderline Malignancy Medical History: Reports: Other - gallbladder cancer GI Medical History: Reports: None, Other - gallbladder cancer, metatstatic Denies: Diverticulitis Musculoskeltal Medical History: Denies: Arthritis Psychiatric Medical History: Reports: General Anxiety Disorder Hematology: Reports: Anemia Past Surgical History Past Surgical History: Reports: Cholecystectomy, Orthopedic Surgery - left foot/ titanium plates placed, Tonsillectomy, Other - Radical cholecystectomy, liver resection, periportal lymphadenectomy Denies: Hysterectomy Social History Information Source: Patient, [facility] Records Lives with: Family, Spouse/Significant other Smoking Status: Never Smoker Electronic Cigarette use?: No Frequency of Alcohol Use: None Hx Recreational Drug Use: No Drugs: None Hx Prescription Drug Abuse: No - Advance Directive Resuscitation Status: Full Code Family History Family History: Hypertension Parental Family History Reviewed: Yes Children Family History Reviewed: Yes Sibling(s) Family History Reviewed.: Yes Medication/Allergy Home Medications: Albuterol Sulfate [Albuterol Sulfate 2.5mg/3 mL] 1 puff IH Q12 01/14/12 Metformin HCl [Metformin HCl ER] 500 mg PO BIDBS 03/06/18 Fluticasone/Salmeterol [Advair 250-50 Diskus 14 Dose/Diskus] 1 inh IH Q12 #1 in haler 04/04/18 Irbesartan/Hydrochlorothiazide [Avalide 300-12.5 mg Tablet] 1 each PO DAILY #30 tablet 04/04/18 Tiotropium [place] [Spiriva Respimat] 2 puff IH DAILY #1 mist.inhal 04/04/18 Ondansetron HCl [Zofran 8 mg Tablet] 8 mg PO Q8HP PRN 05/28/18 Alprazolam 1 mg PO Q12 03/23/19 Chemo: Cisplatin/Gemcitabine 1 each IV ASDIR PRN 03/23/19 Amlodipine Besylate [Norvasc 5 mg Tablet] 2.5 mg PO DAILY 03/24/19 Hydrocodone/Acetaminophen [[place] 5-325 mg Tablet] 1 tab PO Q6HP PRN 04/05/19 Lorazepam [Ativan 1 mg Tablet] 1 mg PO Q6HP PRN 04/05/19 Pantoprazole Sodium [Protonix [address] Tablet] 40 mg PO QAM 04/05/19 Allergies/Adverse Reactions: Penicillins Adverse Reaction (Severe, Verified 04/05/19 13:09) WHEEZE metronidazole [From Flagyl] Adverse Reaction (Verified 04/05/19 13:09) Review of Systems Constitutional: PRESENT: as per HPI, anorexia, fatigue, weakness, weight loss. ABSENT: fever(s), weight gain Eyes: ABSENT: visual disturbances Ears: ABSENT: hearing changes Cardiovascular: ABSENT: chest pain, dyspnea on exertion, edema, orthropnea, palpitations Respiratory: ABSENT: cough, hemoptysis Gastrointestinal: PRESENT: as per HPI, abdominal pain, bloating, nausea, vomiting. ABSENT: constipation Genitourinary: ABSENT: dysuria, hematuria Musculoskeletal: ABSENT: joint swelling Integumentary: ABSENT: rash, wounds Neurological: ABSENT: abnormal gait, abnormal speech, confusion, dizziness, focal weakness, syncope Psychiatric: ABSENT: anxiety, depression, homidical ideation, suicidal ideation Endocrine: ABSENT: cold intolerance, heat intolerance, polydipsia, polyuria Hematologic/Lymphatic: ABSENT: easy bleeding, easy bruising Physical Exam Vital Signs: Temp Pulse Resp BP Pulse Ox 99.2 F 108 H 17 113/54 L 96 04/05/19 23:50 04/05/19 23:50 04/05/19 23:50 04/05/19 23:50 04/05/19 23:50 Intake & Output 04/04/19 04/05/19 04/06/19 11:59 11:59 11:59 Intake Total 2450 Output Total 250 Balance 2200 Weight 77.8 kg General appearance: PRESENT: cooperative, severe distress, well-developed, well- nourished. ABSENT: disheveled Head exam: PRESENT: atraumatic, normocephalic Eye exam: PRESENT: conjunctiva pink, EOMI, PERRLA. ABSENT: scleral icterus Ear exam: PRESENT: normal external ear exam Mouth exam: PRESENT: dry mucosa, neck supple. ABSENT: moist Neck exam: ABSENT: carotid bruit, JVD, lymphadenopathy, thyromegaly Respiratory exam: PRESENT: clear to auscultation christian. ABSENT: rales, rhonchi, wheezes Cardiovascular exam: PRESENT: RRR. ABSENT: diastolic murmur, rubs, systolic murmur Pulses: PRESENT: normal dorsalis pedis pul Vascular exam: PRESENT: normal capillary refill GI/Abdominal exam: PRESENT: diminished bowel sounds, distended, hypoactive bowel sounds, tenderness. ABSENT: ascites, firm, guarding, mass, rebound Rectal exam: PRESENT: deferred Extremities exam: PRESENT: full ROM. ABSENT: calf tenderness, clubbing, pedal edema Neurological exam: PRESENT: alert, awake, oriented to person, oriented to place, oriented to time, oriented to situation, CN II-XII grossly intact. ABSENT: motor sensory deficit Psychiatric exam: PRESENT: appropriate affect, normal mood. ABSENT: homicidal ideation, suicidal ideation Skin exam: PRESENT: dry, intact, warm. ABSENT: cyanosis, rash Results Laboratory Results: 04/05/19 16:20 04/05/19 16:20 04/05/19 04/05/19 04/05/19 13:50 16:20 16:20 WBC 2.2 L RBC 3.51 L Hgb 10.8 L Hct 31.4 L MCV 90 MCH 30.9 MCHC 34.5 RDW 14.0 Plt Count 187 Seg Neutrophils % Not Reportable Sodium 129.7 L Potassium 3.2 L Chloride 95 L Carbon Dioxide 26 Anion Gap 9 BUN 13 Creatinine 0.36 L Est GFR ( Amer) > 60 Glucose 89 Lactic Acid Calcium 8.4 Magnesium Total Bilirubin 2.1 H AST 53 H Alkaline Phosphatase 269 H Total Protein 5.6 L Albumin 2.9 L Lipase < 10.0 L Urine Color JESSICA Urine Appearance SLIGHTLY-CLOUDY Urine pH 5.0 Ur Specific [place] 1.024 Urine Protein NEGATIVE Urine Glucose (UA) NEGATIVE Urine Ketones TRACE H Urine Blood NEGATIVE Urine Nitrite NEGATIVE Ur Leukocyte Esterase NEGATIVE Urine WBC (Auto) 5 Urine RBC (Auto) 0 04/05/19 04/05/19 16:20 16:20 WBC RBC Hgb Hct MCV MCH MCHC RDW Plt Count Seg Neutrophils % Sodium Potassium Chloride Carbon Dioxide Anion Gap BUN Creatinine Est GFR ( Amer) Glucose Lactic Acid 0.8 Calcium Magnesium 1.9 Total Bilirubin AST Alkaline Phosphatase Total Protein Albumin Lipase Urine Color Urine Appearance Urine pH Ur Specific [place] Urine Protein Urine Glucose (UA) Urine Ketones Urine Blood Urine Nitrite Ur Leukocyte Esterase Urine WBC (Auto) Urine RBC (Auto) Impressions: Abdomen/Pelvis CT 04/05/19 00:00 IMPRESSION: Distal small bowel obstruction. Chest X-Ray 04/05/19 13:14 IMPRESSION: Stable left basilar atelectasis/scarring. No evidence of acute intrathoracic process. Dilated small bowel loops, better evaluated on same day abdominal radiograph. KUB X-Ray 04/05/19 13:16 IMPRESSION: Small bowel obstruction with small bowel loops throughout the ce ntral abdomen measuring up to 4.7 cm. Assessment and Plan - Diagnosis (1) Small bowel obstruction Is this a current diagnosis for this admission?: Yes Plan: Conservative management, bowel rest, NG tube, trial soluble contrast, follow-up surgical consult (2) Hyponatremia Is this a current diagnosis for this admission?: Yes Plan: Normal saline challenge, follow-up chemistry (3) Anemia Qualifiers: Other causes of anemia: chronic disease, other Is this a current diagnosis for this admission?: Yes Plan: Likely secondary to chronic disease, follow-up anemia labs (4) Anxiety Is this a current diagnosis for this admission?: Yes Plan: IV Valium as needed (5) COPD (chronic obstructive pulmonary disease) Qualifiers: COPD type: unspecified COPD Qualified Code(s): J44.9 - Chronic obstructive pulmonary disease, unspecified Is this a current diagnosis for this admission?: Yes Plan: Resume outpatient regiment, albuterol, Singulair, Atrovent. (6) Hypokalemia Is this a current diagnosis for this admission?: Yes Plan: IV repletion, follow-up magnesium and chemistry. - Time Time Spent with patient: 25-34 minutes - Inpatient Certification Medical Necessity: Need Close Monitoring Due to Risk of Patient Decompensation
[2019-04-06] MEDS: ONDANSETRON HCL INJ/PF 4 MG/2 ML SDV IV PRN ×3 (04:53→18:00)
[2019-04-06] MEDS: MORPHINE SULFATE 10 MG/ML INJ IV PRN ×2 (04:53→08:19)
[2019-04-06] MEDS: HEPARIN SOD (PORCINE) 5,000 UNIT/ML 1 ML VIAL SUBCUT SCH ×3 (05:02→22:01)
[2019-04-06] MEDS: DEXTROSE 50%-WATER 25 GM/50 ML DISP.SYRIN IV PRN (06:28)
[2019-04-06 07:13] LABS: ABSOLUTE LYMPHOCYTES (AUTO) 0.8 10^3/uL (0.5-4.7); ABSOLUTE MONOCYTES (AUTO) 0.2 10^3/uL (0.1-1.4); BASOPHILS % (AUTO) 0.5 % (0-2); EOSINOPHILS % (AUTO) 0.5 % (0-6); HEMATOCRIT 28.6 % (36.0-47.0); HEMOGLOBIN 10.1 g/dL (12.0-15.5); LYMPHOCYTES % (AUTO) 26.3 % (13-45); MEAN CORPUSCULAR HEMOGLOBIN 31.6 pg (27.0-33.4); MEAN CORPUSCULAR HGB CONC 35.2 g/dL (32.0-36.0); MEAN CORPUSCULAR VOLUME 90 fl (80-97); MONOCYTES % (AUTO) 6.8 % (3-13); PLATELET COUNT 157 10^3/uL (150-450); RED BLOOD COUNT 3.18 10^6/uL (3.72-5.28); RED CELL DISTRIBUTION WIDTH 13.8 % (11.5-14.0); SEGMENTED NEUTROPHILS % (AUTO) 65.9 % (42-78); TOTAL CELLS COUNTED % (AUTO) 100 %
[2019-04-06 07:31] LABS: ANION GAP 11 (5-19); BLOOD UREA NITROGEN 11 mg/dL (7-20); CARBON DIOXIDE 20 mmol/L (22-30); CHLORIDE 103 mmol/L (98-107); GLUCOSE 109 mg/dL (75-110); POTASSIUM 3.8 mmol/L (3.6-5.0)
[2019-04-06] MEDS ORDERED: ALBUTEROL SULFATE 0.083% NEB 2.5 MG/3 ML AMPUL NEB SCH (08:00)
--- NOTE | 2019-04-06 08:24 | RADIOLOGY REPORT (SQ) ---
EXAM DESCRIPTION: KUB/ABDOMEN (SINGLE VIEW) COMPLETED DATE/TIME: 04/05/2019 7:59 pm REASON FOR STUDY: NG TUBE PLACEMENT COMPARISON: 04/05/2019 at 1348 hours. NUMBER OF VIEWS: One view. TECHNIQUE: Supine radiographic image of the abdomen acquired. LIMITATIONS: None. FINDINGS: BOWEL GAS PATTERN: Small bowel dilation, unchanged. CALCIFICATIONS: No suspicious calcifications. SOFT TISSUES: No gross mass or suggestion of organomegaly. HARDWARE: Nasogastric tube, tip in stomach. Surgical clips in the right upper quadrant. BONES: No acute fracture. No worrisome bone lesions. OTHER: No other significant finding. IMPRESSION: SATISFACTORY POSITION OF THE NASOGASTRIC TUBE. OTHERWISE UNCHANGED. TECHNICAL DOCUMENTATION: JOB ID: [id number] 2010 [employer]- All Rights Reserved Reading location - IP/workstation name: [email or web address]
[2019-04-06] MEDS ORDERED: FLUTICASONE/VILANTEROL 200-25 MCG/DOSE IH SCH (10:00)
[2019-04-06] MEDS ORDERED: UMECLIDINIUM BROMIDE 62.5 MCG/DOSE IH SCH (10:00)
[2019-04-06] MEDS: PANTOPRAZOLE SODIUM 40 MG VIAL IV SCH ×2 (10:11→22:01)
[2019-04-06] MEDS ORDERED: HYDRALAZINE HCL INJ/PF 20 MG/1 ML SDV IV PRN (10:35)
[2019-04-06] MEDS ORDERED: METOPROLOL TARTRATE PF/INJ 5 MG/5 ML SDV IV PRN (10:35)
--- NOTE | 2019-04-06 12:19 | PDOC PROGRESS REPORT ---
Subjective Progress Note for:: 04/06/19 Subjective:: CARMEN RUSSO is a 64 year old female with a past medical history of COPD, anxiety, hypertension, diabetes, metastatic gallbladder cancer and recurrent small bowel obstruction. She presents with 24 to 48 hours of abdominal pain and distention with nausea and vomiting. In the emergency department she is found to have small bowel obstruction with hypokalemia and hyponatremia. NG tube is placed producing 500 mL of gastric content aspirate. She denies exceptional constipation and CT does not reveal impaction. She is evaluated by surgery and felt to be a poor candidate for surgery unless failing conservative management. She is referred to the hospitalist for admission 04/06/2019. No acute events overnight. Patient sitting she still having persistent abdominal cramps and has been able to pass more flatus otherwise no changes. Nasogastric in place. Reason For Visit: SBO HYPOKALOEMIA Physical Exam Vital Signs: Temp Pulse Resp BP Pulse Ox 99.0 F 77 18 143/72 H 92 04/06/19 08:00 04/06/19 08:34 04/06/19 08:34 04/06/19 08:00 04/06/19 08:34 Intake & Output 04/05/19 04/06/19 04/07/19 06:59 06:59 06:59 Intake Total 2500 50 Output Total 250 Balance 2250 50 Weight 77.8 kg General appearance: PRESENT: no acute distress, well-developed, well-nourished Head exam: PRESENT: atraumatic, normocephalic Respiratory exam: PRESENT: clear to auscultation christian. ABSENT: rales, rhonchi, wheezes Cardiovascular exam: PRESENT: RRR. ABSENT: diastolic murmur, rubs, systolic murmur GI/Abdominal exam: PRESENT: distended, hyperactive bowel sounds Neurological exam: PRESENT: alert, awake, oriented to person, oriented to place, oriented to time, oriented to situation, CN II-XII grossly intact. ABSENT: motor sensory deficit Psychiatric exam: PRESENT: anxious Results Laboratory Results: 04/06/19 06:59 04/06/19 06:59 04/05/19 04/05/19 04/05/19 13:50 16:20 16:20 WBC 2.2 L RBC 3.51 L Hgb 10.8 L Hct 31.4 L MCV 90 MCH 30.9 MCHC 34.5 RDW 14.0 Plt Count 187 Seg Neutrophils % Not Reportable Sodium 129.7 L Potassium 3.2 L Chloride 95 L Carbon Dioxide 26 Anion Gap 9 BUN 13 Creatinine 0.36 L Est GFR ( Amer) > 60 Glucose 89 Lactic Acid Calcium 8.4 Magnesium Total Bilirubin 2.1 H AST 53 H Alkaline Phosphatase 269 H Total Protein 5.6 L Albumin 2.9 L Lipase < 10.0 L Urine Color JESSICA Urine Appearance SLIGHTLY-CLOUDY Urine pH 5.0 Ur Specific [place] 1.024 Urine Protein NEGATIVE Urine Glucose (UA) NEGATIVE Urine Ketones TRACE H Urine Blood NEGATIVE Urine Nitrite NEGATIVE Ur Leukocyte Esterase NEGATIVE Urine WBC (Auto) 5 Urine RBC (Auto) 0 04/05/19 04/05/19 04/06/19 16:20 16:20 06:59 WBC 3.0 L RBC 3.18 L Hgb 10.1 L Hct 28.6 L MCV 90 MCH 31.6 MCHC 35.2 RDW 13.8 Plt Count 157 Seg Neutrophils % 65.9 Sodium Potassium Chloride Carbon Dioxide Anion Gap BUN Creatinine Est GFR ( Amer) Glucose Lactic Acid 0.8 Calcium Magnesium 1.9 Total Bilirubin AST Alkaline Phosphatase Total Protein Albumin Lipase Urine Color Urine Appearance Urine pH Ur Specific [place] Urine Protein Urine Glucose (UA) Urine Ketones Urine Blood Urine Nitrite Ur Leukocyte Esterase Urine WBC (Auto) Urine RBC (Auto) 04/06/19 06:59 WBC RBC Hgb Hct MCV MCH MCHC RDW Plt Count Seg Neutrophils % Sodium 134.0 L Potassium 3.8 Chloride 103 Carbon Dioxide 20 L Anion Gap 11 BUN 11 Creatinine 0.41 L Est GFR ( Amer) > 60 Glucose 109 Lactic Acid Calcium 8.0 L Magnesium Total Bilirubin AST Alkaline Phosphatase Total Protein Albumin Lipase Urine Color Urine Appearance Urine pH Ur Specific [place] Urine Protein Urine Glucose (UA) Urine Ketones Urine Blood Urine Nitrite Ur Leukocyte Esterase Urine WBC (Auto) Urine RBC (Auto) Impressions: Abdomen/Pelvis CT 04/05/19 00:00 IMPRESSION: Distal small bowel obstruction. Chest X-Ray 04/05/19 13:14 IMPRESSION: Stable left basilar atelectasis/scarring. No evidence of acute intrathoracic process. Dilated small bowel loops, better evaluated on same day abdominal radiograph. KUB X-Ray 04/05/19 13:16 IMPRESSION: Small bowel obstruction with small bowel loops throughout the central abdomen measuring up to 4.7 cm. Assessment and Plan - Diagnosis (1) Small bowel obstruction Is this a current diagnosis for this admission?: Yes Plan: CT abdomen with water-soluble contrast shows distal small bowel obstruction. NG tube in place. Surgery on board. Recommendations noted. Conservative management. Monitor vitals. Supportive measures. (2) Hyponatremia Is this a current diagnosis for this admission?: Yes Plan: Resolved. BMP tomorrow. Continue NS. (3) Anemia Qualifiers: Other causes of anemia: chronic disease, other Is this a current diagnosis for this admission?: Yes Plan: Likely secondary to chronic disease. Denies any source of external bleeding. Monitor H&H. Supportive transfusions. (4) COPD (chronic obstructive pulmonary disease) Qualifiers: COPD type: unspecified COPD Qualified Code(s): J44.9 - Chronic obstructive pulmonary disease, unspecified Is this a current diagnosis for this admission?: Yes Plan: Does not seem to be acutely exacerbated. Resume home meds. Monitor vitals. (5) Hypokalemia Is this a current diagnosis for this admission?: Yes Plan: Replete. Potassium level tomorrow. Replace as needed.
[2019-04-06] MEDS: FLUTICASONE/UMECLIDIN/VILANTER 100-62.5-25 MCG/DOSE IH SCH (12:49)
[2019-04-06] MEDS: HYDROMORPHONE HCL INJ/PF 2 MG/ML AMPULE IV PRN ×3 (14:28→23:09)
--- NOTE | 2019-04-06 14:54 | PDOC PROGRESS REPORT ---
Subjective Progress Note for:: 04/06/19 Subjective:: Abdominal cramping with the nausea Reason For Visit: SBO HYPOKALOEMIA Physical Exam Vital Signs: Temp Pulse Resp BP Pulse Ox 98.3 F 109 H 20 137/65 H 93 04/06/19 12:00 04/06/19 12:00 04/06/19 12:00 04/06/19 12:00 04/06/19 12:00 Intake & Output 04/05/19 04/06/19 04/07/19 06:59 06:59 06:59 Intake Total 2500 50 Output Total 250 Balance 2250 50 Weight 77.8 kg Exam: Abdomen is soft with minimal tenderness. NG drainage less than 100 cc since yesterday. Results Laboratory Results: 04/06/19 06:59 04/06/19 06:59 04/05/19 04/05/19 04/05/19 13:50 16:20 16:20 WBC 2.2 L RBC 3.51 L Hgb 10.8 L Hct 31.4 L MCV 90 MCH 30.9 MCHC 34.5 RDW 14.0 Plt Count 187 Seg Neutrophils % Not Reportable Sodium 129.7 L Potassium 3.2 L Chloride 95 L Carbon Dioxide 26 Anion Gap 9 BUN 13 Creatinine 0.36 L Est GFR ( Amer) > 60 Glucose 89 Lactic Acid Calcium 8.4 Magnesium Total Bilirubin 2.1 H AST 53 H Alkaline Phosphatase 269 H Total Protein 5.6 L Albumin 2.9 L Lipase < 10.0 L Urine Color JESSICA Urine Appearance SLIGHTLY-CLOUDY Urine pH 5.0 Ur Specific [place] 1.024 Urine Protein NEGATIVE Urine Glucose (UA) NEGATIVE Urine Ketones TRACE H Urine Blood NEGATIVE Urine Nitrite NEGATIVE Ur Leukocyte Esterase NEGATIVE Urine WBC (Auto) 5 Urine RBC (Auto) 0 04/05/19 04/05/19 04/06/19 16:20 16:20 06:59 WBC 3.0 L RBC 3.18 L Hgb 10.1 L Hct 28.6 L MCV 90 MCH 31.6 MCHC 35.2 RDW 13.8 Plt Count 157 Seg Neutrophils % 65.9 Sodium Potassium Chloride Carbon Dioxide Anion Gap BUN Creatinine Est GFR ( Amer) Glucose Lactic Acid 0.8 Calcium Magnesium 1.9 Total Bilirubin AST Alkaline Phosphatase Total Protein Albumin Lipase Urine Color Urine Appearance Urine pH Ur Specific [place] Urine Protein Urine Glucose (UA) Urine Ketones Urine Blood Urine Nitrite Ur Leukocyte Esterase Urine WBC (Auto) Urine RBC (Auto) 04/06/19 06:59 WBC RBC Hgb Hct MCV MCH MCHC RDW Plt Count Seg Neutrophils % Sodium 134.0 L Potassium 3.8 Chloride 103 Carbon Dioxide 20 L Anion Gap 11 BUN 11 Creatinine 0.41 L Est GFR ( Amer) > 60 Glucose 109 Lactic Acid Calcium 8.0 L Magnesium Total Bilirubin AST Alkaline Phosphatase Total Protein Albumin Lipase Urine Color Urine Appearance Urine pH Ur Specific [place] Urine Protein Urine Glucose (UA) Urine Ketones Urine Blood Urine Nitrite Ur Leukocyte Esterase Urine WBC (Auto) Urine RBC (Auto) Impressions: Abdomen/Pelvis CT 04/05/19 00:00 IMPRESSION: Distal small bowel obstruction. Chest X-Ray 04/05/19 13:14 IMPRESSION: Stable left basilar atelectasis/scarring. No evidence of acute intrathoracic process. Dilated small bowel loops, better evaluated on same day abdominal radiograph. KUB X-Ray 04/05/19 13:16 IMPRESSION: Small bowel obstruction with small bowel loops throughout the central abdomen measuring up to 4.7 cm. Assessment & Plan - Time Critical Time spent with patient: 15-24 minutes - Inpatient Certification Medical Necessity: Need For IV Fluids, Need for Pain Control - Plan Summary Plan Summary: Continue with NG tube IV Zofran. We will start IV Dilaudid since morphine appears to be not helping that much.
[2019-04-06] MEDS: ACETAMINOPHEN 325 MG TABLET PO PRN ×2 (18:02→22:01)
[2019-04-06] MEDS: RINGERS SOLUTION,LACTATED 1,000 ML IV PRN (19:20)
[2019-04-06] MEDS: IPRATROPIUM BROMIDE 0.02% NEB 0.5 MG/2.5 ML AMPUL NEB PRN (20:49)
[2019-04-06] MEDS: LEVALBUTEROL HCL NEB 0.63 MG/3 ML AMPUL NEB PRN (20:49)
[2019-04-07] MEDS: INSULIN LISPRO 100 UNIT/ML 3 ML VIAL SUBCUT SCH ×4 (00:01→18:25)
[2019-04-07] MEDS: KETOROLAC TROMETHAMINE INJ/PF 30 MG/1 ML SDV IV PRN ×2 (01:33→10:14)
[2019-04-07] MEDS: HEPARIN SOD (PORCINE) 5,000 UNIT/ML 1 ML VIAL SUBCUT SCH ×3 (05:15→21:52)
[2019-04-07] MEDS: ACETAMINOPHEN 325 MG TABLET PO PRN ×2 (05:23→21:57)
[2019-04-07 05:42] LABS: HEMATOCRIT 27.5 % (36.0-47.0); HEMOGLOBIN 9.5 g/dL (12.0-15.5); MEAN CORPUSCULAR HGB CONC 34.4 g/dL (32.0-36.0); MEAN CORPUSCULAR VOLUME 90 fl (80-97); PLATELET COUNT 126 10^3/uL (150-450); RED BLOOD COUNT 3.05 10^6/uL (3.72-5.28); RED CELL DISTRIBUTION WIDTH 13.6 % (11.5-14.0); WHITE BLOOD COUNT 3.8 10^3/uL (4.0-10.5)
[2019-04-07 06:04] LABS: ANION GAP 7 (5-19); BLOOD UREA NITROGEN 9 mg/dL (7-20); CARBON DIOXIDE 23 mmol/L (22-30); CHLORIDE 105 mmol/L (98-107); POTASSIUM 3.4 mmol/L (3.6-5.0)
[2019-04-07 06:11] LABS: GLUCOSE 68 mg/dL (75-110)
[2019-04-07] MEDS: DEXTROSE 50%-WATER 25 GM/50 ML DISP.SYRIN IV PRN (06:20)
[2019-04-07] MEDS: HYDROMORPHONE HCL INJ/PF 2 MG/ML AMPULE IV PRN ×3 (06:21→18:59)
[2019-04-07] MEDS: LORAZEPAM 1 MG TABLET PO PRN ×2 (08:50→21:57)
[2019-04-07] MEDS ORDERED: POTASSI CL 20 MEQ/50 ML RIDER 20 MEQ/50 ML RTUPB IV ONE (09:09)
[2019-04-07] MEDS: PANTOPRAZOLE SODIUM 40 MG VIAL IV SCH ×2 (10:14→21:52)
[2019-04-07] MEDS: FLUTICASONE/UMECLIDIN/VILANTER 100-62.5-25 MCG/DOSE IH SCH (10:29)
[2019-04-07] MEDS: RINGERS SOLUTION,LACTATED 1,000 ML IV PRN (11:53)
--- NOTE | 2019-04-07 13:21 | PDOC PROGRESS REPORT ---
Subjective Progress Note for:: 04/07/19 Subjective:: CARMEN RUSSO is a 64 year old female with a past medical history of COPD, anxiety, hypertension, diabetes, metastatic gallbladder cancer and recurrent small bowel obstruction. She presents with 24 to 48 hours of abdominal pain and distention with nausea and vomiting. In the emergency department she is found to have small bowel obstruction with hypokalemia and hyponatremia. NG tube is placed producing 500 mL of gastric content aspirate. She denies exceptional constipation and CT does not reveal impaction. She is evaluated by surgery and felt to be a poor candidate for surgery unless failing conservative management. She is referred to the hospitalist for admission 04/06/2019. No acute events overnight. Patient sitting she still having persistent abdominal cramps and has been able to pass more flatus otherwise no changes. Nasogastric in place. 04/07/2019. No acute events overnight. Patient still has abdominal pain and distention, has not passed flatus or had any bowel. Denies any nausea, vomiting, chest pain, shortness of breath. Nasogastric tube in place with bilious output. Reason For Visit: SBO HYPOKALOEMIA Physical Exam Vital Signs: Temp Pulse Resp BP Pulse Ox 98.4 F 103 H 16 117/56 L 96 04/07/19 12:00 04/07/19 12:00 04/07/19 12:00 04/07/19 12:00 04/07/19 12:00 Intake & Output 04/06/19 04/07/19 04/08/19 06:59 06:59 06:59 Intake Total 2500 50 1000 Output Total 250 300 Balance 2250 -250 1000 Weight 77.8 kg 79.9 kg General appearance: PRESENT: no acute distress, well-developed, well-nourished Head exam: PRESENT: atraumatic, normocephalic Respiratory exam: PRESENT: clear to auscultation christian. ABSENT: rales, rhonchi, w heezes Cardiovascular exam: PRESENT: RRR. ABSENT: diastolic murmur, rubs, systolic murmur GI/Abdominal exam: PRESENT: distended, firm, hyperactive bowel sounds, normal bowel sounds, soft. ABSENT: guarding, mass, organolmegaly, rebound, tenderness Neurological exam: PRESENT: alert, awake, oriented to person, oriented to place, oriented to time, oriented to situation, CN II-XII grossly intact. ABSENT: motor sensory deficit Results Laboratory Results: 04/07/19 05:20 04/07/19 05:20 04/07/19 04/07/19 05:20 05:20 WBC 3.8 L RBC 3.05 L Hgb 9.5 L Hct 27.5 L MCV 90 MCH 31.0 MCHC 34.4 RDW 13.6 Plt Count 126 L Sodium 135.1 L Potassium 3.4 L Chloride 105 Carbon Dioxide 23 Anion Gap 7 BUN 9 Creatinine 0.35 L Est GFR ( Amer) > 60 Glucose 68 L Calcium 8.0 L Impressions: Abdomen/Pelvis CT 04/05/19 00:00 IMPRESSION: Distal small bowel obstruction. Chest X-Ray 04/05/19 13:14 IMPRESSION: Stable left basilar atelectasis/scarring. No evidence of acute intrathoracic process. Dilated small bowel loops, better evaluated on same day abdominal radiograph. KUB X-Ray 04/05/19 13:16 IMPRESSION: Small bowel obstruction with small bowel loops throughout the central abdomen measuring up to 4.7 cm. Assessment and Plan - Diagnosis (1) Small bowel obstruction Is this a current diagnosis for this admission?: Yes Plan: CT abdomen with water-soluble contrast shows distal small bowel obstruction. NG tube in place. Surgery on board. Recommendations noted. Conservative management. Monitor vitals. Supportive measures. (2) Hyponatremia Is this a current diagnosis for this admission?: Yes Plan: Resolved. BMP tomorrow. Continue NS. (3) Anemia Qualifiers: Other causes of anemia: chronic disease, other Is this a current diagnosis for this admission?: Yes Plan: Likely secondary to chronic disease. Denies any source of external bleeding. Monitor H&H. Supportive transfusions. (4) COPD (chronic obstructive pulmonary disease) Qualifiers: COPD type: unspecified COPD Qualified Code(s): J44.9 - Chronic obstructive pulmonary disease, unspecified Is this a current diagnosis for this admission?: Yes Plan: Does not seem to be acutely exacerbated. Resume home meds. Monitor vitals. (5) Hypokalemia Is this a current diagnosis for this admission?: Yes Plan: Replaced. Potassium level tomorrow. Replace as needed.
[2019-04-07] MEDS: ONDANSETRON HCL INJ/PF 4 MG/2 ML SDV IV PRN (19:03)
[2019-04-07] MEDS: LEVALBUTEROL HCL NEB 0.63 MG/3 ML AMPUL NEB PRN (20:52)
[2019-04-07] MEDS: IPRATROPIUM BROMIDE 0.02% NEB 0.5 MG/2.5 ML AMPUL NEB PRN (20:52)
--- NOTE | 2019-04-07 22:32 | PDOC PROGRESS REPORT ---
Subjective Progress Note for:: 04/07/19 Subjective:: Abdominal pains. Had 2 small bowel movements but denies passage of flatus today. Yesterday she had a small amount of flatus Reason For Visit: SBO HYPOKALOEMIA Physical Exam Vital Signs: Temp Pulse Resp BP Pulse Ox 98.8 F 111 H 22 H 124/70 94 04/07/19 20:30 04/07/19 20:57 04/07/19 20:57 04/07/19 20:30 04/07/19 20:57 Intake & Output 04/06/19 04/07/19 04/08/19 06:59 06:59 06:59 Intake Total 2500 50 1050 Output Total 250 300 Balance 2250 -250 1050 Weight 77.8 kg 79.9 kg Exam: Abdomen is slightly distended but soft with mild diffuse tenderness. NG tube draining light dark fluid about 500 cc past 24hours. Results Laboratory Results: 04/07/19 05:20 04/07/19 05:20 04/07/19 04/07/19 05:20 05:20 WBC 3.8 L RBC 3.05 L Hgb 9.5 L Hct 27.5 L MCV 90 MCH 31.0 MCHC 34.4 RDW 13.6 Plt Count 126 L Sodium 135.1 L Potassium 3.4 L Chloride 105 Carbon Dioxide 23 Anion Gap 7 BUN 9 Creatinine 0.35 L Est GFR ( Amer) > 60 Glucose 68 L Calcium 8.0 L Impressions: Abdomen/Pelvis CT 04/05/19 00:00 IMPRESSION: Distal small bowel obstruction. Chest X-Ray 04/05/19 13:14 IMPRESSION: Stable left basilar atelectasis/scarring. No evidence of acute intrathoracic process. Dilated small bowel loops, better evaluated on same day abdominal radiograph. KUB X-Ray 04/05/19 13:16 IMPRESSION: Small bowel obstruction with small bowel loops throughout the central abdomen measuring up to 4.7 cm. Assessment & Plan - Diagnosis (1) Metastasis from gallbladder cancer Is this a current diagnosis for this admission?: Yes (2) Nausea and vomiting Qualifiers: Vomiting type: unspecified Vomiting Intractability: intractable Qualified Code(s): R11.2 - Nausea with vomiting, unspecified Is this a current diagnosis for this admission?: Yes (3) Partial small bowel obstruction Is this a current diagnosis for this admission?: Yes - Time Critical Time spent with patient: 15-24 minutes - Inpatient Certification Medical Necessity: Need Close Monitoring Due to Risk of Patient Decompensation, Need For IV Fluids, Risk of Complication if Not Cared For in Hospital - Plan Summary Plan Summary: 64-year-old female post surgical treatment of gallbladder cancer about a year ago and now with metastatic lesions noted. She is admitted for distal small bowel obstruction due to metastatic carcinoma. She did pass flatus yesterday but none today. NG drainage was about 500 cc of light dark fluid. Plans: Continue with the medical management. Possible exploration if not open up in the next 24 to 48 hours
[2019-04-08] MEDS: INSULIN LISPRO 100 UNIT/ML 3 ML VIAL SUBCUT SCH ×4 (00:28→17:04)
[2019-04-08 00:33] LABS: ANION GAP 14 (5-19); BLOOD UREA NITROGEN 10 mg/dL (7-20); CALCIUM 8.1 mg/dL (8.4-10.2); CARBON DIOXIDE 20 mmol/L (22-30); CHLORIDE 103 mmol/L (98-107); GLUCOSE 79 mg/dL (75-110); POTASSIUM 3.2 mmol/L (3.6-5.0)
[2019-04-08] MEDS: RINGERS SOLUTION,LACTATED 1,000 ML IV PRN ×2 (01:29→14:01)
[2019-04-08] MEDS: KETOROLAC TROMETHAMINE INJ/PF 30 MG/1 ML SDV IV PRN ×3 (01:53→22:03)
[2019-04-08] MEDS: HEPARIN SOD (PORCINE) 5,000 UNIT/ML 1 ML VIAL SUBCUT SCH ×3 (05:14→21:49)
[2019-04-08] MEDS: LORAZEPAM 1 MG TABLET PO PRN (05:56)
[2019-04-08] MEDS ORDERED: MORPHINE SULFATE 10 MG/ML INJ IV PRN (06:34)
[2019-04-08] MEDS ORDERED: POTASSI CL 20 MEQ/50 ML RIDER 20 MEQ/50 ML RTUPB IV ONE (06:56)
--- NOTE | 2019-04-08 07:19 | RADIOLOGY REPORT (SQ) ---
EXAM DESCRIPTION: XR CHEST 1 VIEW COMPLETED DATE/TME: 04/08/2019 00:00 CLINICAL HISTORY: 64 years, Female, ng tube placement verification COMPARISON: 04/05/2019 NUMBER OF VIEWS: One TECHNIQUE: Upright AP view of the abdomen LIMITATIONS: None. FINDINGS: A nasogastric tube has been placed which terminates within the stomach. The lungs are clear. The heart size is stable. There is no pneumothorax or pleural effusion. The left chest wall port again terminates within the SVC. There is no intraperitoneal free air. There are dilated loops of small bowel which measure up to 3.3 cm in diameter IMPRESSION: Satisfactory position of the nasogastric tube. Small bowel obstruction copyright 2010 [employer]- All Rights Reserved
[2019-04-08] MEDS: ONDANSETRON HCL INJ/PF 4 MG/2 ML SDV IV PRN ×2 (07:37→19:00)
--- NOTE | 2019-04-08 07:37 | PDOC PROGRESS REPORT ---
Subjective Progress Note for:: 04/08/19 Subjective:: had 2 small bowel movements Reason For Visit: SBO HYPOKALOEMIA sbo malignant Physical Exam Vital Signs: Temp Pulse Resp BP Pulse Ox 97.5 F 98 17 109/54 L 99 04/08/19 03:52 04/08/19 03:52 04/08/19 03:52 04/08/19 03:52 04/08/19 03:52 Intake & Output 04/07/19 04/08/19 04/09/19 06:59 06:59 06:59 Intake Total 50 2049 Output Total 300 Balance -250 2049 Weight 79.9 kg 77.5 kg General appearance: PRESENT: no acute distress Head exam: PRESENT: normocephalic Eye exam: PRESENT: EOMI Ear exam: PRESENT: normal external ear exam Mouth exam: PRESENT: moist Neck exam: PRESENT: full ROM Respiratory exam: PRESENT: clear to auscultation christian Cardiovascular exam: PRESENT: RRR Pulses: PRESENT: normal radial pulses, normal femoral pulses Vascular exam: PRESENT: normal capillary refill Breast: PRESENT: Normal GI/Abdominal exam: PRESENT: distended, soft Rectal exam: PRESENT: deferred Extremities exam: PRESENT: full ROM Musculoskeletal exam: PRESENT: full ROM Neurological exam: PRESENT: alert, awake, oriented to person, oriented to place Psychiatric exam: PRESENT: appropriate affect Skin exam: PRESENT: dry Results Laboratory Results: 04/07/19 05:20 04/08/19 00:01 04/08/19 00:01 Sodium 136.7 L Potassium 3.2 L Chloride 103 Carbon Dioxide 20 L Anion Gap 14 BUN 10 Creatinine 0.39 L Est GFR ( Amer) > 60 Glucose 79 Calcium 8.1 L Impressions: Abdomen/Pelvis CT 04/05/19 00:00 IMPRESSION: Distal small bowel obstruction. KUB X-Ray 04/05/19 13:16 IMPRESSION: Small bowel obstruction with small bowel loops throughout the c entral abdomen measuring up to 4.7 cm. Chest X-Ray 04/08/19 00:00 IMPRESSION: Satisfactory position of the nasogastric tube. Small bowel obstruction copyright 2011 [employer]- All Rights Reserved Assessment & Plan - Plan Summary Plan Summary: metastatic gallbladder cancer, now with recurrent sbo no resolution with ng tube will plan on enteroenterostomy for decompression- palliative.
[2019-04-08] MEDS ORDERED: POTASSI CL 20 MEQ/50 ML RIDER 20 MEQ/50 ML RTUPB IV SCH (07:49)
--- NOTE | 2019-04-08 09:15 | PDOC CONSULTATION ---
Consultation Consult Date: 04/08/19 Provider Consulted: MATEO MOYA Consult reason:: Hematology/Oncology consultation was requested for patient on active chemo for gall bladder cancer. History of Present Illness Admission Date/PCP: 04/05/19 19:52 JASWANT EDWARDS MD History of Present Illness: CARMEN RUSSO is a 64 year old female who received chemotherapy with cisplatin/gemcitabine on 04/01/2019. She was admitted last month to this institution for partial small bowel obstruction, which resolved spontaneously. She presented again with the same symptoms. This is thought to be due to the underlying malignancy. Today, she states that her NG tube came out last night and had to be replaced, but otherwise, she is feeling OK. She is having a small amount of BM. She is thirsty. Past Medical History Cardiac Medical History: Reports: Hypertension Denies: Coronary Artery Disease, Myocardial Infarction Pulmonary Medical History: Reports: Bronchitis, Chronic Obstructive Pulmonary Disease (COPD), Pneumonia Denies: Asthma Neurological Medical History: Denies: Seizures Endocrine Medical History: Reports: Diabetes Mellitus Type 2 - borderline Malignancy Medical History: Reports: Other - gallbladder cancer GI Medical History: Reports: None, Other - gallbladder cancer, metatstatic Denies: Diverticulitis Musculoskeltal Medical History: Denies: Arthritis Psychiatric Medical History: Reports: General Anxiety Disorder Hematology: Reports: Anemia Past Surgical History Past Surgical History: Reports: Cholecystectomy, Orthopedic Surgery - left foot/ titanium plates placed, Tonsillectomy, Other - Radical cholecystectomy, liver resection, periportal lymphadenectomy Denies: Hysterectomy Social History Lives with: Family, Spouse/Significant other Smoking Status: Never Smoker Electronic Cigarette use?: No Frequency of Alcohol Use: None Hx Recreational Drug Use: No Drugs: None Hx Prescription Drug Abuse: No - Advance Directive Resuscitation Status: Full Code Family History Family History: Hypertension Parental Family History Reviewed: Yes - Mother . Father still living. HTN. Children Family History Reviewed: No Sibling(s) Family History Reviewed.: Yes Medication/Allergy Home Medications: Albuterol Sulfate [Albuterol Sulfate 2.5mg/3 mL] 1 puff IH Q12 01/14/12 Metformin HCl [Metformin HCl ER] 500 mg PO BIDBS 03/06/18 Fluticasone/Salmeterol [Advair 250-50 Diskus 14 Dose/Diskus] 1 inh IH Q12 #1 inhaler 04/04/18 Irbesartan/Hydrochlorothiazide [Avalide 300-12.5 mg Tablet] 1 each PO DAILY #30 tablet 04/04/18 Tiotropium [place] [Spiriva Respimat] 2 puff IH DAILY #1 mist.inhal 04/04/18 Ondansetron HCl [Zofran 8 mg Tablet] 8 mg PO Q8HP PRN 05/28/18 Alprazolam 1 mg PO Q12 03/23/19 Chemo: Cisplatin/Gemcitabine 1 each IV ASDIR PRN 03/23/19 Amlodipine Besylate [Norvasc 5 mg Tablet] 2.5 mg PO DAILY 03/24/19 Hydrocodone/Acetaminophen [[place] 5-325 mg Tablet] 1 tab PO Q6HP PRN 04/05/19 Lorazepam [Ativan 1 mg Tablet] 1 mg PO Q6HP PRN 04/05/19 Pantoprazole Sodium [Protonix [address] Tablet] 40 mg PO QAM 04/05/19 Allergies/Adverse Reactions: Penicillins Adverse Reaction (Severe, Verified 04/05/19 13:09) WHEEZE metronidazole [From Flagyl] Adverse Reaction (Verified 04/05/19 13:09) Review of Systems Constitutional: ABSENT: fever(s), headache(s) Eyes: ABSENT: visual disturbances Ears: ABSENT: hearing changes Nose, Mouth, and Throat: ABSENT: sore throat Cardiovascular: ABSENT: chest pain Respiratory: ABSENT: cough, dyspnea Gastrointestinal: PRESENT: abdominal pain, bloating Genitourinary: ABSENT: dysuria Integumentary: ABSENT: rash Neurological: ABSENT: frequent falls, lack of coordination Hematologic/Lymphatic: ABSENT: easy bleeding Physical Exam Vital Signs: Temp Pulse Resp BP Pulse Ox 98.8 F 104 H 18 117/59 L 98 04/08/19 08:00 04/08/19 08:00 04/08/19 08:00 04/08/19 08:00 04/08/19 08:00 Intake & Output 04/07/19 04/08/19 04/09/19 06:59 06:59 06:59 Intake Total 50 2049 Output Total 300 Balance -250 2049 Weight 79.9 kg 77.5 kg General appearance: PRESENT: no acute distress, well-developed Exam: 64 year old female. Head exam: PRESENT: atraumatic, normocephalic Eye exam: PRESENT: EOMI Mouth exam: PRESENT: dry mucosa Neck exam: ABSENT: lymphadenopathy, tenderness Respiratory exam: PRESENT: clear to auscultation christian, unlabored Cardiovascular exam: PRESENT: RRR GI/Abdominal exam: PRESENT: distended, firm Extremities exam: ABSENT: pedal edema Neurological exam: PRESENT: alert, awake Psychiatric exam: PRESENT: appropriate affect Skin exam: PRESENT: normal color Results Laboratory Results: 04/07/19 05:20 04/08/19 00:01 04/08/19 00:01 Sodium 136.7 L Potassium 3.2 L Chloride 103 Carbon Dioxide 20 L Anion Gap 14 BUN 10 Creatinine 0.39 L Est GFR ( Amer) > 60 Glucose 79 Calcium 8.1 L Impressions: Abdomen/Pelvis CT 04/05/19 00:00 IMPRESSION: Distal small bowel obstruction. KUB X-Ray 04/05/19 13:16 IMPRESSION: Small bowel obstruction with small bowel loops throughout the central abdomen measuring up to 4.7 cm. Chest X-Ray 04/08/19 00:00 IMPRESSION: Satisfactory position of the nasogastric tube. Small bowel obstruction copyright 2011 [employer]- All Rights Reserved Status: Image reviewed by me Assessment & Plan - Diagnosis (1) Gallbladder cancer Is this a current diagnosis for this admission?: Yes Plan: Next chemo dose would be due on 04/15/2019. All treatments on hold right now. Watch for drop in blood counts due to chemo. May transfuse if needed. (2) Partial small bowel obstruction Is this a current diagnosis for this admission?: Yes Plan: Discussed at length with Dr. Michaud. He believes a small procedure to relieve obstruction would be beneficial and that patient should be able to tolerate this and resume chemo within 2-3 weeks. Patient agrees. - Plan Summary Plan Summary: Dr. Tadeo should return tomorrow. Please call with any questions or concerns.
[2019-04-08] MEDS: PANTOPRAZOLE SODIUM 40 MG VIAL IV SCH ×2 (09:32→21:54)
[2019-04-08] MEDS: ACETAMINOPHEN 325 MG TABLET PO PRN (09:32)
[2019-04-08] MEDS: FLUTICASONE/UMECLIDIN/VILANTER 100-62.5-25 MCG/DOSE IH SCH (09:34)
--- NOTE | 2019-04-08 12:31 | PDOC PROGRESS REPORT ---
Subjective Progress Note for:: 04/08/19 Subjective:: CARMEN RUSSO is a 64 year old female with a past medical history of COPD, anxiety, hypertension, diabetes, metastatic gallbladder cancer and recurrent small bowel obstruction. She presents with 24 to 48 hours of abdominal pain and distention with nausea and vomiting. In the emergency department she is found to have small bowel obstruction with hypokalemia and hyponatremia. NG tube is placed producing 500 mL of gastric content aspirate. She denies exceptional constipation and CT does not reveal impaction. She is evaluated by surgery and felt to be a poor candidate for surgery unless failing conservative management. She is referred to the hospitalist for admission 04/06/2019. No acute events overnight. Patient sitting she still having persistent abdominal cramps and has been able to pass more flatus otherwise no changes. Nasogastric in place. 04/07/2019. No acute events overnight. Patient still has abdominal pain and distention, has not passed flatus or had any bowel. Denies any nausea, vomiting, chest pain, shortness of breath. Nasogastric tube in place with bilious output. 04/08/2019. No acute events overnight. Patient has had 2 small bowel movements however still with significant abdominal distention and tympany, denies any fever, chills, urinary symptoms. Patient is planned to have surgery by Dr. Michaud possibly tomorrow. Reason For Visit: SBO HYPOKALOEMIA Physical Exam Vital Signs: Temp Pulse Resp BP Pulse Ox 98.8 F 110 H 22 H 117/59 L 95 04/08/19 08:00 04/08/19 09:33 04/08/19 09:33 04/08/19 08:00 04/08/19 09:33 Intake & Output 04/07/19 04/08/19 04/09/19 06:59 06:59 06:59 Intake Total 50 2049 50 Output Total 300 Balance -250 2049 50 Weight 79.9 kg 77.5 kg General appearance: PRESENT: mild distress Head exam: PRESENT: atraumatic, normocephalic Respiratory exam: PRESENT: clear to auscultation christian. ABSENT: rales, rhonchi, wheezes Cardiovascular exam: PRESENT: RRR. ABSENT: diastolic murmur, rubs, systolic murmur GI/Abdominal exam: PRESENT: distended, firm, guarding, hyperactive bowel sounds. ABSENT: mass, organolmegaly, rebound, tenderness Neurological exam: PRESENT: alert, awake, oriented to person, oriented to place, oriented to time, oriented to situation, CN II-XII grossly intact. ABSENT: motor sensory deficit Results Laboratory Results: 04/07/19 05:20 04/08/19 00:01 04/08/19 00:01 Sodium 136.7 L Potassium 3.2 L Chloride 103 Carbon Dioxide 20 L Anion Gap 14 BUN 10 Creatinine 0.39 L Est GFR ( Amer) > 60 Glucose 79 Calcium 8.1 L Impressions: Abdomen/Pelvis CT 04/05/19 00:00 IMPRESSION: Distal small bowel obstruction. KUB X-Ray 04/05/19 13:16 IMPRESSION: Small bowel obstruction with small bowel loops throughout the central abdomen measuring up to 4.7 cm. Chest X-Ray 04/08/19 00:00 IMPRESSION: Satisfactory position of the nasogastric tube. Small bowel obstruction copyright 2011 [employer]- All Rights Reserved Assessment and Plan - Diagnosis (1) Small bowel obstruction Is this a current diagnosis for this admission?: Yes Plan: CT abdomen with water-soluble contrast shows distal small bowel obstruction. NG tube in place. Surgery on board. Possible surgery tomorrow today after. Conservative management. Monitor vitals. Supportive measures. (2) Hyponatremia Is this a current diagnosis for this admission?: Yes Plan: Resolved. BMP tomorrow. Continue NS. (3) Anemia Qualifiers: Other causes of anemia: chronic disease, other Is this a current diagnosis for this admission?: Yes Plan: Likely secondary to chronic disease. Denies any source of external bleeding. Monitor H&H. Supportive transfusions. (4) COPD (chronic obstructive pulmonary disease) Qualifiers: COPD type: unspecified COPD Qualified Code(s): J44.9 - Chronic obstructive pulmonary disease, unspecified Is this a current diagnosis for this admission?: Yes Plan: Does not seem to be acutely exacerbated. Resume home meds. Monitor vitals. (5) Hypokalemia Is this a current diagnosis for this admission?: Yes Plan: Replaced. Potassium level tomorrow. Replace as needed.
[2019-04-08] MEDS: IPRATROPIUM BROMIDE 0.02% NEB 0.5 MG/2.5 ML AMPUL NEB PRN (16:05)
[2019-04-08] MEDS: LEVALBUTEROL HCL NEB 0.63 MG/3 ML AMPUL NEB PRN (16:05)
[2019-04-08] MEDS: MORPHINE SULFATE 10 MG/ML INJ IV PRN (19:00)
--- NOTE | 2019-04-08 20:11 | EKG REPORT ---
SEVERITY:- BORDERLINE ECG - SINUS TACHYCARDIA BORDERLINE T ABNORMALITIES, INFERIOR LEADS : Confirmed by: Mehran Gonzalez MD 08-Apr-2019 20:10:24
[2019-04-08 20:44] LABS: ANION GAP 16 (5-19); BLOOD UREA NITROGEN 9 mg/dL (7-20); CALCIUM 8.2 mg/dL (8.4-10.2); CARBON DIOXIDE 17 mmol/L (22-30); CHLORIDE 103 mmol/L (98-107); GLUCOSE 80 mg/dL (75-110); POTASSIUM 3.1 mmol/L (3.6-5.0)
[2019-04-09] MEDS: LEVALBUTEROL HCL NEB 0.63 MG/3 ML AMPUL NEB PRN ×3 (00:29→23:22)
[2019-04-09] MEDS: IPRATROPIUM BROMIDE 0.02% NEB 0.5 MG/2.5 ML AMPUL NEB PRN ×3 (00:29→23:23)
[2019-04-09] MEDS: INSULIN LISPRO 100 UNIT/ML 3 ML VIAL SUBCUT SCH ×4 (00:56→17:11)
[2019-04-09] MEDS: MORPHINE SULFATE 10 MG/ML INJ IV PRN ×3 (03:23→21:05)
[2019-04-09] MEDS: HEPARIN SOD (PORCINE) 5,000 UNIT/ML 1 ML VIAL SUBCUT SCH ×2 (06:03→13:36)
[2019-04-09] MEDS: RINGERS SOLUTION,LACTATED 1,000 ML IV PRN (06:03)
[2019-04-09 06:55] LABS: ANION GAP 15 (5-19); BLOOD UREA NITROGEN 10 mg/dL (7-20); CARBON DIOXIDE 19 mmol/L (22-30); CHLORIDE 103 mmol/L (98-107); GLUCOSE 70 mg/dL (75-110)
[2019-04-09 08:08] LABS: HEMATOCRIT 27.9 % (36.0-47.0); HEMOGLOBIN 9.7 g/dL (12.0-15.5); MEAN CORPUSCULAR HEMOGLOBIN 31.5 pg (27.0-33.4); MEAN CORPUSCULAR HGB CONC 34.9 g/dL (32.0-36.0); MEAN CORPUSCULAR VOLUME 90 fl (80-97); RED BLOOD COUNT 3.09 10^6/uL (3.72-5.28); RED CELL DISTRIBUTION WIDTH 14.2 % (11.5-14.0); WHITE BLOOD COUNT 4.3 10^3/uL (4.0-10.5)
[2019-04-09] MEDS: POTASSIUM CHLORIDE 20 MEQ/50 ML RTU IV SCH ×2 (08:11→10:14)
--- NOTE | 2019-04-09 08:23 | PDOC PROGRESS REPORT ---
Subjective Progress Note for:: 04/09/19 Subjective:: Had long discussion with patient, spent greater than 40 minutes in discussion, Dr. Michaud was at bedside as well. Unfortunately she has not progressed medically in terms of the small bowel obstruction, we discussed surgical options with the patient and she is agreed to go forward with surgery, Dr. Michaud will attempt to do the surgery this afternoon. Reason For Visit: SBO HYPOKALOEMIA Physical Exam Vital Signs: Temp Pulse Resp BP Pulse Ox 99.5 F 112 H 18 132/67 H 96 04/09/19 04:25 04/09/19 07:00 04/09/19 04:25 04/09/19 04:25 04/09/19 04:25 Intake & Output 04/08/19 04/09/19 04/10/19 06:59 06:59 06:59 Intake Total 2049 2049 Output Total 250 Balance 2049 1800 Weight 77.5 kg 79.4 kg General appearance: PRESENT: no acute distress, well-developed, well-nourished Head exam: PRESENT: atraumatic, normocephalic Eye exam: PRESENT: conjunctiva pink, EOMI, PERRLA. ABSENT: scleral icterus Ear exam: PRESENT: normal external ear exam Mouth exam: PRESENT: moist, tongue midline Neck exam: ABSENT: carotid bruit, JVD, lymphadenopathy, thyromegaly Respiratory exam: PRESENT: clear to auscultation christian. ABSENT: rales, rhonchi, wheezes Cardiovascular exam: PRESENT: RRR. ABSENT: diastolic murmur, rubs, systolic murmur Pulses: PRESENT: normal dorsalis pedis pul Vascular exam: PRESENT: normal capillary refill GI/Abdominal exam: PRESENT: normal bowel sounds, soft. ABSENT: distended, guarding, mass, organolmegaly, rebound, tenderness Rectal exam: PRESENT: deferred Extremities exam: PRESENT: full ROM. ABSENT: calf tenderness, clubbing, pedal edema Neurological exam: PRESENT: alert, awake, oriented to person, oriented to place, oriented to time, oriented to situation, CN II-XII grossly intact. ABSENT: motor sensory deficit Psychiatric exam: PRESENT: appropriate affect, normal mood. ABSENT: homicidal ideation, suicidal ideation Skin exam: PRESENT: dry, intact, warm. ABSENT: cyanosis, rash Results Laboratory Results: 04/09/19 06:00 04/08/19 04/08/19 04/09/19 17:28 20:16 06:00 Sodium 136.4 L 137.4 Potassium 3.1 L 3.0 L* Chloride 103 103 Carbon Dioxide 17 L 19 L Anion Gap 16 15 BUN 9 10 Creatinine 0.34 L 0.34 L Est GFR ( Amer) > 60 > 60 Glucose 80 70 L Calcium 8.2 L 8.0 L Blood Type A POSITIVE Antibody Screen NEGATIVE Impressions: Abdomen/Pelvis CT 04/05/19 00:00 IMPRESSION: Distal small bowel obstruction. KUB X-Ray 04/05/19 13:16 IMPRESSION: Small bowel obstruction with small bowel loops throughout the central abdomen measuring up to 4.7 cm. Chest X-Ray 04/08/19 00:00 IMPRESSION: Satisfactory position of the nasogastric tube. 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 (2) Gallbladder cancer Is this a current diagnosis for this admission?: Yes Plan: Chemotherapy on hold until surgical management can be undertaken, she will need to be off chemotherapy most likely 4 to 6 weeks post surgery. We will see what surgery can be done. Reviewed imaging and overall disease is stable since starting therapy. But she really only received the first cycle. - Time Time Spent with patient: 35 or more minutes
[2019-04-09 08:28] LABS: PLATELET COUNT 92 10^3/uL (150-450)
[2019-04-09 08:32] LABS: ABSOLUTE LYMPHOCYTES# (MANUAL) 0.7 10^3/uL (0.5-4.7); ABSOLUTE MONOCYTES # (MANUAL) 0.4 10^3/uL (0.1-1.4); BAND NEUTROPHILS % (MANUAL) 6 % (3-5); BASOPHILS % (MANUAL) 0 % (0-2); EOSINOPHILS % (MANUAL) 0 % (0-6); LYMPHOCYTES % (MANUAL) 16 % (13-45); METAMYELOCYTES % (MANUAL) 1 % (0-1); MONOCYTES % (MANUAL) 9 % (3-13); NUCLEATED RED BLOOD CELLS 1 /100 WBC (0); SEGMENTED NEUTROPHILS % (MAN) 68 % (42-78); TOTAL CELLS COUNTED 100
[2019-04-09 08:35] LABS: ANISOCYTOSIS SLIGHT; OVALOCYTES SLIGHT; PLATELET COMMENT DECREASED; POIKILOCYTOSIS SLIGHT
--- NOTE | 2019-04-09 08:47 | PDOC PROGRESS REPORT ---
Subjective Progress Note for:: 04/09/19 Subjective:: still distended crampy abd pain Reason For Visit: SBO HYPOKALOEMIA Physical Exam Vital Signs: Temp Pulse Resp BP Pulse Ox 99.5 F 112 H 18 132/67 H 96 04/09/19 04:25 04/09/19 07:00 04/09/19 04:25 04/09/19 04:25 04/09/19 04:25 Intake & Output 04/08/19 04/09/19 04/10/19 06:59 06:59 06:59 Intake Total 2049 2049 Output Total 250 Balance 2049 1800 Weight 77.5 kg 79.4 kg General appearance: PRESENT: no acute distress Head exam: PRESENT: normocephalic Eye exam: PRESENT: EOMI Mouth exam: PRESENT: neck supple Neck exam: PRESENT: full ROM Respiratory exam: PRESENT: clear to auscultation christian Cardiovascular exam: PRESENT: RRR Pulses: PRESENT: normal radial pulses, normal femoral pulses Vascular exam: PRESENT: normal capillary refill Breast: PRESENT: Normal GI/Abdominal exam: PRESENT: distended, hypoactive bowel sounds, other Rectal exam: PRESENT: deferred Extremities exam: PRESENT: full ROM Musculoskeletal exam: PRESENT: full ROM Neurological exam: PRESENT: alert, awake, oriented to person, oriented to place Psychiatric exam: PRESENT: appropriate affect Skin exam: PRESENT: dry Results Laboratory Results: 04/09/19 06:00 04/09/19 06:00 04/08/19 04/08/19 04/09/19 17:28 20:16 06:00 WBC RBC Hgb Hct MCV MCH MCHC RDW Plt Count Seg Neutrophils % Sodium 136.4 L 137.4 Potassium 3.1 L 3.0 L* Chloride 103 103 Carbon Dioxide 17 L 19 L Anion Gap 16 15 BUN 9 10 Creatinine 0.34 L 0.34 L Est GFR ( Amer) > 60 > 60 Glucose 80 70 L Calcium 8.2 L 8.0 L Blood Type A POSITIVE Antibody Screen NEGATIVE 04/09/19 06:00 WBC 4.3 RBC 3.09 L Hgb 9.7 L Hct 27.9 L MCV 90 MCH 31.5 MCHC 34.9 RDW 14.2 H Plt Count 92 L Seg Neutrophils % Not Reportable Sodium Potassium Chloride Carbon Dioxide Anion Gap BUN Creatinine Est GFR ( Amer) Glucose Calcium Blood Type Antibody Screen Impressions: Abdomen/Pelvis CT 04/05/19 00:00 IMPRESSION: Distal small bowel obstruction. KUB X-Ray 04/05/19 13:16 IMPRESSION: Small bowel obstruction with small bowel loops throughout the central abdomen measuring up to 4.7 cm. Chest X-Ray 04/08/19 00:00 IMPRESSION: Satisfactory position of the nasogastric tube. Small bowel obstruction copyright 2011 [employer]- All Rights Reserved Assessment & Plan - Plan Summary Plan Summary: malilgnant small bowel obstruction pt wants to prceed iwth exploratory laparotomy and enteroenterostomy to bypass obstruction will plan on procedure later todsay
[2019-04-09] MEDS: PANTOPRAZOLE SODIUM 40 MG VIAL IV SCH ×2 (09:03→21:05)
[2019-04-09] MEDS: FLUTICASONE/UMECLIDIN/VILANTER 100-62.5-25 MCG/DOSE IH SCH (09:03)
--- NOTE | 2019-04-09 10:00 | PDOC PROGRESS REPORT ---
Subjective Progress Note for:: 04/09/19 Subjective:: CARMEN RUSSO is a 64 year old female with a past medical history of COPD, anxiety, hypertension, diabetes, metastatic gallbladder cancer and recurrent small bowel obstruction. She presents with 24 to 48 hours of abdominal pain and distention with nausea and vomiting. In the emergency department she is found to have small bowel obstruction with hypokalemia and hyponatremia. NG tube is placed producing 500 mL of gastric content aspirate. She denies exceptional constipation and CT does not reveal impaction. She is evaluated by surgery and felt to be a poor candidate for surgery unless failing conservative management. She is referred to the hospitalist for admission 04/06/2019. No acute events overnight. Patient sitting she still having persistent abdominal cramps and has been able to pass more flatus otherwise no changes. Nasogastric in place. 04/07/2019. No acute events overnight. Patient still has abdominal pain and distention, has not passed flatus or had any bowel. Denies any nausea, vomiting, chest pain, shortness of breath. Nasogastric tube in place with bilious output. 04/08/2019. No acute events overnight. Patient has had 2 small bowel movements however still with significant abdominal distention and tympany, denies any fever, chills, urinary symptoms. Patient is planned to have surgery by Dr. Michaud possibly tomorrow. 04/09/2019. Unfortunately patient still has not had any flatus or bowel movement, patient is still complaining of persistent abdominal pain, improved with morphine, patient is scheduled for exploratory laparotomy with surgery today. Reason For Visit: SBO HYPOKALOEMIA Physical Exam Vital Signs: Temp Pulse Resp BP Pulse Ox 99.7 F 115 H 15 134/66 H 96 04/09/19 08:36 04/09/19 08:36 04/09/19 08:36 04/09/19 08:36 04/09/19 08:36 Intake & Output 04/08/19 04/09/19 04/10/19 06:59 06:59 06:59 Intake Total 2049 2049 Output Total 250 Balance 2049 1800 Weight 77.5 kg 79.4 kg General appearance: PRESENT: mild distress Head exam: PRESENT: atraumatic, normocephalic Respiratory exam: PRESENT: clear to auscultation christian. ABSENT: rales, rhonchi, wheezes Cardiovascular exam: PRESENT: RRR. ABSENT: diastolic murmur, rubs, systolic murmur GI/Abdominal exam: PRESENT: distended, hypoactive bowel sounds, normal bowel sounds, soft. ABSENT: guarding, mass, organolmegaly, rebound, tenderness Neurological exam: PRESENT: alert, awake, oriented to person, oriented to place, oriented to time, oriented to situation, CN II-XII grossly intact. ABSENT: motor sensory deficit Skin exam: PRESENT: dry, intact, warm. ABSENT: cyanosis, rash Results Laboratory Results: 04/09/19 06:00 04/09/19 06:00 04/08/19 04/08/19 04/09/19 17:28 20:16 06:00 WBC RBC Hgb Hct MCV MCH MCHC RDW Plt Count Seg Neutrophils % Sodium 136.4 L 137.4 Potassium 3.1 L 3.0 L* Chloride 103 103 Carbon Dioxide 17 L 19 L Anion Gap 16 15 BUN 9 10 Creatinine 0.34 L 0.34 L Est GFR ( Amer) > 60 > 60 Glucose 80 70 L Calcium 8.2 L 8.0 L Blood Type A POSITIVE Antibody Screen NEGATIVE 04/09/19 06:00 WBC 4.3 RBC 3.09 L Hgb 9.7 L Hct 27.9 L MCV 90 MCH 31.5 MCHC 34.9 RDW 14.2 H Plt Count 92 L Seg Neutrophils % Not Reportable Sodium Potassium Chloride Carbon Dioxide Anion Gap BUN Creatinine Est GFR ( Amer) Glucose Calcium Blood Type Antibody Screen Impressions: Abdomen/Pelvis CT 04/05/19 00:00 IMPRESSION: Distal small bowel obstruction. KUB X-Ray 04/05/19 13:16 IMPRESSION: Small bowel obstruction with small bowel loops throughout the central abdomen measuring up to 4.7 cm. Chest X-Ray 04/08/19 00:00 IMPRESSION: Satisfactory position of the nasogastric tube. Small bowel obstruction copyright 2011 [employer]- All Rights Reserved Assessment and Plan - Diagnosis (1) Small bowel obstruction Is this a current diagnosis for this admission?: Yes Plan: Patient still not passing any flatus or having any bowel. CT abdomen with water-soluble contrast shows distal small bowel obstruction. NG tube in place. Patient is planned to have exploratory laparotomy later today. (2) Hyponatremia Is this a current diagnosis for this admission?: Yes Plan: Resolved. BMP tomorrow. Continue NS. (3) Anemia Qualifiers: Other causes of anemia: chronic disease, other Is this a current diagnosis for this admission?: Yes Plan: Likely secondary to chronic disease. Denies any source of external bleeding. Monitor H&H. Supportive transfusions. (4) COPD (chronic obstructive pulmonary disease) Qualifiers: COPD type: unspecified COPD Qualified Code(s): J44.9 - Chronic obstructive pulmonary disease, unspecified Is this a current diagnosis for this admission?: Yes Plan: Does not seem to be acutely exacerbated. Resume home meds. Monitor vitals. (5) Hypokalemia Is this a current diagnosis for this admission?: Yes Plan: Replaced. Potassium level tomorrow. Replace as needed.
[2019-04-09] MEDS ORDERED: SUGAMMADEX SODIUM 200 MG/2 ML SDV IV ONE (14:43)
[2019-04-09] MEDS ORDERED: ONDANSETRON HCL INJ/PF 4 MG/2 ML SDV ONE (14:43)
[2019-04-09] MEDS ORDERED: FENTANYL CITRATE INJ/PF 100 MCG/2 ML AMPUL ONE (14:43)
[2019-04-09] MEDS ORDERED: MIDAZOLAM 2 MG/2 ML INJ ONE (14:43)
[2019-04-09] MEDS ORDERED: DEXAMETHASONE SOD PHOSPHATE INJ 4 MG/1 ML VIAL ONE (14:43)
[2019-04-09] MEDS ORDERED: PROPOFOL INJ 200 MG/20 ML VIAL IV ONE (14:44)
[2019-04-09] MEDS ORDERED: PROMETHAZINE HCL INJ 25 MG/1 ML VIAL IV PRN ×2 (15:52)
[2019-04-09] MEDS ORDERED: MEPERIDINE HCL/PF INJ 25 MG/1 ML DISP.SYRIN IV PRN (15:52)
[2019-04-09] MEDS ORDERED: MORPHINE SULFATE 10 MG/ML INJ IV PRN (15:52)
[2019-04-09] MEDS ORDERED: FENTANYL CITRATE INJ/PF 100 MCG/2 ML AMPUL IV PRN ×3 (15:52)
[2019-04-09] MEDS ORDERED: ONDANSETRON HCL INJ/PF 4 MG/2 ML SDV IV PRN (15:52)
[2019-04-09] MEDS ORDERED: DIPHENHYDRAMINE HCL 50 MG/ML VIAL IV PRN (15:52)
[2019-04-09] MEDS ORDERED: CLINDAMYCIN 900 MG/D5W RTU 900 MG/50 ML RTUPB IV ONE (15:54)
[2019-04-09] MEDS: FENTANYL CITRATE INJ/PF 100 MCG/2 ML AMPUL ONE ×2 (17:45→18:05)
--- NOTE | 2019-04-09 18:13 | Operative Report ---
Nonrecallable Operative Report DATE OF SURGERY: 04/09/19 PREOPERATIVE DIAGNOSIS: Malignant bowel obstruction POSTOPERATIVE DIAGNOSIS: Small bowel obstruction secondary to metastatic gallbladder cancer OPERATION: Exploratory laparotomy with enteroenterostomy SURGEON: MARLENI DESHPANDE ANESTHESIA: GA TISSUE REMOVED OR ALTERED: Approximately 2 L of ascitic fluid drained from the abdominal cavity COMPLICATIONS: None ESTIMATED BLOOD LOSS: 50 cc INTRAOPERATIVE FINDINGS: Widely metastatic gallbladder cancer with multiple shakir toneal metastasis as well as mesenteric metastasis and serosal metastases PROCEDURE: Patient was brought to the operating room awake alert stable condition placed in the upper table supine position induced under general anesthesia and intubated. After appropriate timeout and site verification the procedure commenced. A midline incision was used from above the umbilicus to just below dissection was carried down through subcutaneous tissue with Bovie cautery as we came through the subcutaneous tissue we noted that there was significantly edematous and very friable. The midline fascia was also friable and opened with Bovie cautery upon entering the abdominal cavity there was large amount of ascitic fluid that was noted approximately 2 and half liters was drained from the abdominal cavity. Small bowel was able to be eviscerated was markedly dilated from the ligament of Treitz all the way to the cecum the patient had obvious palpable metastatic disease in the pelvis peritoneal surfaces in the right upper quadrant and the epigastrium. There was a loop of distal ileum that was adhesed tightly to the right lower quadrant secondary to a metastatic deposit. I was able to incise this and allow this to come up into the field there is also mesenteric metastases to the terminal ileum causing a kinking of the terminal ileum and the obstruction. I was able to mobilize the right colon by incising the white line of Toldt with Bovie cautery allowing the ascending colon to come up into the wound. After this we then placed a pursestring suture in the distal ileum proximal to the area of obstruction and then placed a suction catheter into the small bowel were able to decompress the small bowel by removing approximately another 2 L of stool and enteric contents. This was done without significant leak. We then changed gloves and created an enteroenterostomy between the terminal ileum proximal to the obstruction and the ascending colon just distal to the cecum this was done sewn in 2 layers the outer layer being 2- 0 silk in a running interlocking 3-0 Vicryl. After this we confirmed the anastomosis to be intact without leak and returned to the abdominal cavity then copiously irrigated with approximately 6 L of normal saline suctioned dry me close midline fascia with interrupted #2 Vicryl sutures. We then closed the skin with standard skin clips. The patient was then awakened in the operating extubated transferred recovery in stable condition Sponge needle counts were correct x2 estimated blood loss was approximately 50 cc.
[2019-04-09] MEDS ORDERED: ACETAMINOPHEN 1,000 MG/100 ML RTUPB IV ONE ×2 (18:17→19:00)
[2019-04-09] MEDS: HYDROMORPHONE HCL INJ/PF 2 MG/ML AMPULE ONE ×2 (18:20→18:31)
[2019-04-09] MEDS: ONDANSETRON HCL INJ/PF 4 MG/2 ML SDV IV PRN (21:06)
[2019-04-09 21:08] LABS: ANION GAP 15 (5-19); BLOOD UREA NITROGEN 8 mg/dL (7-20); CALCIUM 7.5 mg/dL (8.4-10.2); CARBON DIOXIDE 19 mmol/L (22-30); CHLORIDE 104 mmol/L (98-107); GLUCOSE 101 mg/dL (75-110); POTASSIUM 3.5 mmol/L (3.6-5.0)
[2019-04-10] MEDS: DEXTROSE 5%-LACTATED RINGERS 1,000 ML IV PRN ×4 (00:13→21:37)
[2019-04-10] MEDS: MORPHINE SULFATE 10 MG/ML INJ IV PRN ×6 (00:18→21:24)
[2019-04-10] MEDS ORDERED: ALPRAZOLAM 0.5 MG TABLET PO ONE (01:00)
[2019-04-10] MEDS: INSULIN LISPRO 100 UNIT/ML 3 ML VIAL SUBCUT SCH ×4 (01:29→18:01)
[2019-04-10] MEDS: HYDROMORPHONE HCL INJ/PF 2 MG/ML AMPULE IV SCH ×2 (01:32→01:33)
[2019-04-10] MEDS: ONDANSETRON HCL INJ/PF 4 MG/2 ML SDV IV PRN ×2 (05:09→21:24)
[2019-04-10 05:40] LABS: HEMATOCRIT 28.1 % (36.0-47.0); HEMOGLOBIN 9.8 g/dL (12.0-15.5); MEAN CORPUSCULAR HEMOGLOBIN 31.3 pg (27.0-33.4); MEAN CORPUSCULAR HGB CONC 34.7 g/dL (32.0-36.0); MEAN CORPUSCULAR VOLUME 90 fl (80-97); PLATELET COUNT 108 10^3/uL (150-450); RED BLOOD COUNT 3.12 10^6/uL (3.72-5.28); RED CELL DISTRIBUTION WIDTH 14.4 % (11.5-14.0); WHITE BLOOD COUNT 7.5 10^3/uL (4.0-10.5)
[2019-04-10 05:57] LABS: ALKALINE PHOSPHATASE 154 U/L (38-126); ANION GAP 7 (5-19); ASPARTATE AMINO TRANSFERASE 25 U/L (14-36); BILIRUBIN,DIRECT 0.3 mg/dL (0.0-0.4); BILIRUBIN,TOTAL 0.7 mg/dL (0.2-1.3); BLOOD UREA NITROGEN 8 mg/dL (7-20); CALCIUM 7.7 mg/dL (8.4-10.2); CARBON DIOXIDE 25 mmol/L (22-30); CHLORIDE 106 mmol/L (98-107); GLUCOSE 187 mg/dL (75-110); POTASSIUM 3.3 mmol/L (3.6-5.0)
[2019-04-10 06:04] LABS: ABSOLUTE LYMPHOCYTES# (MANUAL) 0.5 10^3/uL (0.5-4.7); ABSOLUTE MONOCYTES # (MANUAL) 0.5 10^3/uL (0.1-1.4); BAND NEUTROPHILS % (MANUAL) 10 % (3-5); BASOPHILS % (MANUAL) 0 % (0-2); EOSINOPHILS % (MANUAL) 0 % (0-6); LYMPHOCYTES % (MANUAL) 7 % (13-45); MONOCYTES % (MANUAL) 6 % (3-13); SEGMENTED NEUTROPHILS % (MAN) 77 % (42-78); TOTAL CELLS COUNTED 100
[2019-04-10 06:05] LABS: POLYCHROMASIA SLIGHT; TOXIC GRANULATION 1+
[2019-04-10 06:06] LABS: ANISOCYTOSIS SLIGHT; BURR CELLS SLIGHT; OVALOCYTES SLIGHT; PLATELET COMMENT DECREASED; POIKILOCYTOSIS SLIGHT; SCHISTOCYTES SLIGHT
--- NOTE | 2019-04-10 07:47 | PDOC PROGRESS REPORT ---
Subjective Progress Note for:: 04/10/19 Subjective:: feesl ok min pain up amb ulating Reason For Visit: SBO HYPOKALOEMIA Physical Exam Vital Signs: Temp Pulse Resp BP Pulse Ox 98.4 F 99 18 110/62 91 L 04/10/19 04:39 04/10/19 04:39 04/10/19 04:39 04/10/19 04:39 04/10/19 04:39 Intake & Output 04/09/19 04/10/19 04/11/19 06:59 06:59 06:59 Intake Total 0 7315 Output Total 250 9395 Balance 1799 -2019 Weight 79.4 kg 81.1 kg General appearance: PRESENT: no acute distress Head exam: PRESENT: normocephalic Eye exam: PRESENT: EOMI Ear exam: PRESENT: normal external ear exam Mouth exam: PRESENT: moist Neck exam: PRESENT: full ROM Respiratory exam: PRESENT: clear to auscultation christian Cardiovascular exam: PRESENT: RRR Pulses: PRESENT: normal radial pulses, normal femoral pulses Vascular exam: PRESENT: normal capillary refill Breast: PRESENT: Normal GI/Abdominal exam: PRESENT: soft Rectal exam: PRESENT: deferred Gentrourinary exam: PRESENT: indwelling catheter Extremities exam: PRESENT: full ROM Musculoskeletal exam: PRESENT: ambulatory Neurological exam: PRESENT: alert, awake, oriented to person, oriented to place Psychiatric exam: PRESENT: appropriate affect Skin exam: PRESENT: dry Results Laboratory Results: 04/10/19 05:15 04/10/19 05:15 04/09/19 04/09/19 04/10/19 06:00 20:29 05:15 WBC 4.3 7.5 RBC 3.09 L 3.12 L Hgb 9.7 L 9.8 L Hct 27.9 L 28.1 L MCV 90 90 MCH 31.5 31.3 MCHC 34.9 34.7 RDW 14.2 H 14.4 H Plt Count 92 L 108 L Seg Neutrophils % Not Reportable Not Reportable Sodium 137.7 Potassium 3.5 L Chloride 104 Carbon Dioxide 19 L Anion Gap 15 BUN 8 Creatinine 0.31 L Est GFR ( Amer) > 60 Glucose 101 Calcium 7.5 L Magnesium Total Bilirubin AST Alkaline Phosphatase Total Protein Albumin 04/10/19 05:15 WBC RBC Hgb Hct MCV MCH MCHC RDW Plt Count Seg Neutrophils % Sodium 137.5 Potassium 3.3 L Chloride 106 Carbon Dioxide 25 Anion Gap 7 BUN 8 Creatinine 0.31 L Est GFR ( Amer) > 60 Glucose 187 H Calcium 7.7 L Magnesium 1.7 Total Bilirubin 0.7 AST 25 Alkaline Phosphatase 154 H Total Protein 4.0 L Albumin 2.0 L Impressions: Abdomen/Pelvis CT 04/05/19 00:00 IMPRESSION: Distal small bowel obstruction. KUB X-Ray 04/05/19 13:16 IMPRESSION: Small bowel obstruction with small bowel loops throughout the central abdomen measuring up to 4.7 cm. Chest X-Ray 04/08/19 00:00 IMPRESSION: Satisfactory position of the nasogastric tube. Small bowel obstruction copyright 2011 [employer]- All Rights Reserved Assessment & Plan - Plan Summary Plan Summary: pod 1 s/p enteroenterostomy up ambulating today awaiting return of bowel function will cont ng and coronado decrease ivf
[2019-04-10] MEDS ORDERED: POTASSI CL 20 MEQ/50 ML RIDER 20 MEQ/50 ML RTUPB IV ONE (08:30)
--- NOTE | 2019-04-10 08:59 | PDOC PROGRESS REPORT ---
Subjective Progress Note for:: 04/10/19 Subjective:: Patient was up and walking today Reason For Visit: SBO HYPOKALOEMIA Physical Exam Vital Signs: Temp Pulse Resp BP Pulse Ox 98.4 F 99 18 110/62 91 L 04/10/19 04:39 04/10/19 07:00 04/10/19 04:39 04/10/19 04:39 04/10/19 04:39 Intake & Output 04/09/19 04/10/19 04/11/19 06:59 06:59 06:59 Intake Total 0 7315 Output Total 250 9335 Balance 1800 -2019 Weight 79.4 kg 81.1 kg General appearance: PRESENT: no acute distress, well-developed, well-nourished Head exam: PRESENT: atraumatic, normocephalic Eye exam: PRESENT: conjunctiva pink, EOMI, PERRLA. ABSENT: scleral icterus Ear exam: PRESENT: normal external ear exam Mouth exam: PRESENT: moist, tongue midline Neck exam: ABSENT: carotid bruit, JVD, lymphadenopathy, thyromegaly Respiratory exam: PRESENT: clear to auscultation christian. ABSENT: rales, rhonchi, wheezes Cardiovascular exam: PRESENT: RRR. ABSENT: diastolic murmur, rubs, systolic murmur Pulses: PRESENT: normal dorsalis pedis pul Vascular exam: PRESENT: normal capillary refill GI/Abdominal exam: PRESENT: normal bowel sounds, soft. ABSENT: distended, guarding, mass, organolmegaly, rebound, tenderness Rectal exam: PRESENT: deferred Extremities exam: PRESENT: full ROM. ABSENT: calf tenderness, clubbing, pedal edema Neurological exam: PRESENT: alert, awake, oriented to person, oriented to place, oriented to time, oriented to situation, CN II-XII grossly intact. ABSENT: motor sensory deficit Psychiatric exam: PRESENT: appropriate affect, normal mood. ABSENT: homicidal ideation, suicidal ideation Skin exam: PRESENT: dry, intact, warm. ABSENT: cyanosis, rash Results Laboratory Results: 04/10/19 05:15 04/10/19 05:15 04/09/19 04/10/19 04/10/19 20:29 05:15 05:15 WBC 7.5 RBC 3.12 L Hgb 9.8 L Hct 28.1 L MCV 90 MCH 31.3 MCHC 34.7 RDW 14.4 H Plt Count 108 L Seg Neutrophils % Not Reportable Sodium 137.7 137.5 Potassium 3.5 L 3.3 L Chloride 104 106 Carbon Dioxide 19 L 25 Anion Gap 15 7 BUN 8 8 Creatinine 0.31 L 0.31 L Est GFR ( Amer) > 60 > 60 Glucose 101 187 H Calcium 7.5 L 7.7 L Magnesium 1.7 Total Bilirubin 0.7 AST 25 Alkaline Phosphatase 154 H Total Protein 4.0 L Albumin 2.0 L Impressions: Abdomen/Pelvis CT 04/05/19 00:00 IMPRESSION: Distal small bowel obstruction. KUB X-Ray 04/05/19 13:16 IMPRESSION: Small bowel obstruction with small bowel loops throughout the central abdomen measuring up to 4.7 cm. Chest X-Ray 04/08/19 00:00 IMPRESSION: Satisfactory position of the nasogastric tube. Small bowel obstruction copyright 2011 [employer]- All Rights Reserved Assessment & Plan - Diagnosis (1) Partial small bowel obstruction Is this a current diagnosis for this admission?: Yes Plan: Status post surgery, continue follow-up (2) Gallbladder cancer Is this a current diagnosis for this admission?: Yes Plan: Chemotherapy on hold for at least 4 weeks. - Time Time Spent with patient: 15-24 minutes
[2019-04-10] MEDS: PANTOPRAZOLE SODIUM 40 MG VIAL IV SCH ×2 (09:55→21:24)
[2019-04-10] MEDS: FLUTICASONE/UMECLIDIN/VILANTER 100-62.5-25 MCG/DOSE IH SCH (11:08)
[2019-04-10] MEDS: RINGERS SOLUTION,LACTATED 1,000 ML IV PRN (11:38)
[2019-04-10] MEDS: LEVALBUTEROL HCL NEB 0.63 MG/3 ML AMPUL NEB PRN (16:55)
[2019-04-10] MEDS ORDERED: METOPROLOL TARTRATE PF/INJ 5 MG/5 ML SDV IV ONE (19:00)
[2019-04-10] MEDS: ALPRAZOLAM 0.5 MG TABLET PO PRN (21:24)
[2019-04-10 23:39] LABS: ANION GAP 5 (5-19); BLOOD UREA NITROGEN 12 mg/dL (7-20); CALCIUM 8.1 mg/dL (8.4-10.2); CARBON DIOXIDE 25 mmol/L (22-30); CHLORIDE 104 mmol/L (98-107); GLUCOSE 126 mg/dL (75-110); POTASSIUM 3.2 mmol/L (3.6-5.0)
[2019-04-11] MEDS: IPRATROPIUM BROMIDE 0.02% NEB 0.5 MG/2.5 ML AMPUL NEB PRN ×2 (00:55→18:55)
[2019-04-11] MEDS: LEVALBUTEROL HCL NEB 0.63 MG/3 ML AMPUL NEB PRN (00:55)
[2019-04-11] MEDS: INSULIN LISPRO 100 UNIT/ML 3 ML VIAL SUBCUT SCH ×4 (03:33→18:42)
[2019-04-11] MEDS: MORPHINE SULFATE 10 MG/ML INJ IV PRN ×3 (04:44→21:36)
[2019-04-11] MEDS: ONDANSETRON HCL INJ/PF 4 MG/2 ML SDV IV PRN ×2 (04:44→21:38)
--- NOTE | 2019-04-11 06:41 | PDOC PROGRESS REPORT ---
Subjective Progress Note for:: 04/11/19 Subjective:: feels ok, some incisional pain no flatus Reason For Visit: SBO HYPOKALOEMIA Physical Exam Vital Signs: Temp Pulse Resp BP Pulse Ox 98.3 F 110 H 18 101/54 L 96 04/11/19 00:00 04/11/19 02:00 04/11/19 00:55 04/11/19 00:00 04/11/19 05:05 Intake & Output 04/09/19 04/10/19 04/11/19 06:59 06:59 06:59 Intake Total 2050 7315 2935 Output Total 250 9335 150 Balance 1799 2785 Weight 79.4 kg 81.1 kg General appearance: PRESENT: no acute distress Head exam: PRESENT: normocephalic Eye exam: PRESENT: EOMI Ear exam: PRESENT: normal external ear exam Mouth exam: PRESENT: moist Neck exam: PRESENT: full ROM Respiratory exam: PRESENT: clear to auscultation christian Cardiovascular exam: PRESENT: RRR Pulses: PRESENT: normal radial pulses, normal femoral pulses Breast: PRESENT: Normal GI/Abdominal exam: PRESENT: soft Rectal exam: PRESENT: deferred Extremities exam: PRESENT: full ROM Musculoskeletal exam: PRESENT: full ROM Neurological exam: PRESENT: alert, awake, oriented to person, oriented to place Psychiatric exam: PRESENT: appropriate affect Skin exam: PRESENT: dry Results Laboratory Results: 04/10/19 05:15 04/10/19 22:50 04/10/19 22:50 Sodium 134.1 L Potassium 3.2 L Chloride 104 Carbon Dioxide 25 Anion Gap 5 BUN 12 Creatinine 0.34 L Est GFR ( Amer) > 60 Glucose 126 H Calcium 8.1 L 04/05/19 17:36 Blood Blood Culture - Final NO GROWTH IN 5 DAYS 04/05/19 16:20 Blood Blood Culture - Final NO GROWTH IN 5 DAYS Impressions: Abdomen/Pelvis CT 04/05/19 00:00 IMPRESSION: Distal small bowel obstruction. KUB X-Ray 04/05/19 13:16 IMPRESSION: Small bowel obstruction with small bowel loops throughout the central abdomen measuring up to 4.7 cm. Chest X-Ray 04/08/19 00:00 IMPRESSION: Satisfactory position of the nasogastric tube. Small bowel obstruction copyright 2010 [employer]- All Rights Reserved Assessment & Plan - Plan Summary Plan Summary: s/p enteroenterostomy for malignant sbo doing ok still no return of bowel function will start clamping ng today pt ambulating. urine op adeq.
[2019-04-11] MEDS: DEXTROSE 5%-LACTATED RINGERS 1,000 ML IV PRN (08:28)
[2019-04-11 08:47] LABS: HEMATOCRIT 26.9 % (36.0-47.0); HEMOGLOBIN 9.5 g/dL (12.0-15.5); MEAN CORPUSCULAR HEMOGLOBIN 31.9 pg (27.0-33.4); MEAN CORPUSCULAR HGB CONC 35.4 g/dL (32.0-36.0); MEAN CORPUSCULAR VOLUME 90 fl (80-97); PLATELET COUNT 142 10^3/uL (150-450); RED BLOOD COUNT 2.98 10^6/uL (3.72-5.28); RED CELL DISTRIBUTION WIDTH 14.4 % (11.5-14.0); WHITE BLOOD COUNT 9.5 10^3/uL (4.0-10.5)
[2019-04-11 09:09] LABS: ANION GAP 5 (5-19); BLOOD UREA NITROGEN 12 mg/dL (7-20); CARBON DIOXIDE 26 mmol/L (22-30); CHLORIDE 104 mmol/L (98-107); GLUCOSE 98 mg/dL (75-110); POTASSIUM 3.3 mmol/L (3.6-5.0)
[2019-04-11 09:14] LABS: ABSOLUTE LYMPHOCYTES# (MANUAL) 1.6 10^3/uL (0.5-4.7); ABSOLUTE MONOCYTES # (MANUAL) 0.5 10^3/uL (0.1-1.4); BAND NEUTROPHILS % (MANUAL) 5 % (3-5); BASOPHILS % (MANUAL) 0 % (0-2); EOSINOPHILS % (MANUAL) 1 % (0-6); LYMPHOCYTES % (MANUAL) 16 % (13-45); MONOCYTES % (MANUAL) 5 % (3-13); PROMYELOCYTES % (MANUAL) 2 % (0); SEGMENTED NEUTROPHILS % (MAN) 70 % (42-78); TOTAL CELLS COUNTED 100
[2019-04-11 09:17] LABS: TOXIC GRANULATION SLIGHT; TOXIC VACUOLATION PRESENT
[2019-04-11 09:21] LABS: ANISOCYTOSIS SLIGHT; OVALOCYTES SLIGHT; PLATELET COMMENT DECREASED; POLYCHROMASIA SLIGHT; TEAR DROP CELLS SLIGHT
[2019-04-11] MEDS ORDERED: POTASSI CL 20 MEQ/50 ML RIDER 20 MEQ/50 ML RTUPB IV ONE (11:00)
[2019-04-11] MEDS: PANTOPRAZOLE SODIUM 40 MG VIAL IV SCH ×2 (11:16→22:00)
[2019-04-11] MEDS: FLUTICASONE/UMECLIDIN/VILANTER 100-62.5-25 MCG/DOSE IH SCH ×2 (11:21→11:26)
--- NOTE | 2019-04-11 12:52 | PDOC PROGRESS REPORT ---
Subjective Progress Note for:: 04/11/19 Subjective:: CARMNE RUSSO is a 64 year old female with a past medical history of COPD, anxiety, hypertension, diabetes, metastatic gallbladder cancer and recurrent small bowel obstruction. She presents with 24 to 48 hours of abdominal pain and distention with nausea and vomiting. In the emergency department she is found to have small bowel obstruction with hypokalemia and hyponatremia. NG tube is placed producing 500 mL of gastric content aspirate. She denies exceptional constipation and CT does not reveal impaction. She is evaluated by surgery and felt to be a poor candidate for surgery unless failing conservative management. She is referred to the hospitalist for admission 04/06/2019. No acute events overnight. Patient sitting she still having persistent abdominal cramps and has been able to pass more flatus otherwise no changes. Nasogastric in place. 04/07/2019. No acute events overnight. Patient still has abdominal pain and distention, has not passed flatus or had any bowel. Denies any nausea, vomiting, chest pain, shortness of breath. Nasogastric tube in place with bilious output. 04/08/2019. No acute events overnight. Patient has had 2 small bowel movements however still with significant abdominal distention and tympany, denies any fever, chills, urinary symptoms. Patient is planned to have surgery by Dr. Michaud possibly tomorrow. 04/09/2019. Unfortunately patient still has not had any flatus or bowel movement, patient is still complaining of persistent abdominal pain, improved with morphine, patient is scheduled for exploratory laparotomy with surgery today. 04/11/2019. No acute events overnight. Unfortunately patient has not passed flatus, abdominal pain improving, patient is ambulatory. Nasogastric tube in place. Was short of breath this morning which has resolved at the time of my visit. Reason For Visit: SBO HYPOKALOEMIA Physical Exam Vital Signs: Temp Pulse Resp BP Pulse Ox 98.7 F 110 H 19 101/56 L 93 04/11/19 11:55 04/11/19 11:55 04/11/19 11:55 04/11/19 11:55 04/11/19 11:55 Intake & Output 04/10/19 04/11/19 04/12/19 06:59 06:59 06:59 Intake Total 7315 2935 1000 Output Total 9335 400 -20195 1000 Weight 81.1 kg 81.1 kg General appearance: PRESENT: no acute distress, well-developed, well-nourished Head exam: PRESENT: atraumatic, normocephalic Respiratory exam: PRESENT: clear to auscultation christian. ABSENT: rales, rhonchi, wheezes Cardiovascular exam: PRESENT: RRR. ABSENT: diastolic murmur, rubs, systolic murmur Pulses: PRESENT: normal dorsalis pedis pul GI/Abdominal exam: PRESENT: hypoactive bowel sounds, soft, other - Abdominal incision intact, no sign of infection or bleeding.. ABSENT: distended, guard ing, mass, organolmegaly, rebound, tenderness Neurological exam: PRESENT: alert, awake, oriented to person, oriented to place, oriented to time, oriented to situation, CN II-XII grossly intact. ABSENT: motor sensory deficit Results Laboratory Results: 04/11/19 08:15 04/11/19 08:15 04/10/19 04/11/19 04/11/19 22:50 08:15 08:15 WBC 9.5 RBC 2.98 L Hgb 9.5 L Hct 26.9 L MCV 90 MCH 31.9 MCHC 35.4 RDW 14.4 H Plt Count 142 L Seg Neutrophils % Not Reportable Sodium 134.1 L 135.4 L Potassium 3.2 L 3.3 L Chloride 104 104 Carbon Dioxide 25 26 Anion Gap 5 5 BUN 12 12 Creatinine 0.34 L 0.35 L Est GFR ( Amer) > 60 > 60 Glucose 126 H 98 Calcium 8.1 L 8.0 L Magnesium 1.6 04/05/19 17:36 Blood Blood Culture - Final NO GROWTH IN 5 DAYS 04/05/19 16:20 Blood Blood Culture - Final NO GROWTH IN 5 DAYS Impressions: Abdomen/Pelvis CT 04/05/19 00:00 IMPRESSION: Distal small bowel obstruction. KUB X-Ray 04/05/19 13:16 IMPRESSION: Small bowel obstruction with small bowel loops throughout the central abdomen measuring up to 4.7 cm. Chest X-Ray 04/08/19 00:00 IMPRESSION: Satisfactory position of the nasogastric tube. Small bowel obstruction copyright 2011 [employer]- All Rights Reserved Assessment and Plan - Diagnosis (1) Small bowel obstruction Is this a current diagnosis for this admission?: Yes Plan: Malignant SBO. Status post [place] laparotomy. Patient still not passing any flatus or having any bowel. CT abdomen with water-soluble contrast shows distal small bowel obstruction. NG tube in place. Surgery on board. Recommendations noted. (2) Hyponatremia Is this a current diagnosis for this admission?: Yes Plan: Resolved. BMP tomorrow. Continue NS. (3) Anemia Qualifiers: Other causes of anemia: chronic disease, other Is this a current diagnosis for this admission?: Yes Plan: Likely secondary to chronic disease. Denies any source of external bleeding. Monitor H&H. Supportive transfusions. (4) COPD (chronic obstructive pulmonary disease) Qualifiers: COPD type: unspecified COPD Qualified Code(s): J44.9 - Chronic obstructive pulmonary disease, unspecified Is this a current diagnosis for this admission?: Yes Plan: Does not seem to be acutely exacerbated. Resume home meds. Monitor vitals. (5) Hypokalemia Is this a current diagnosis for this admission?: Yes Plan: Replaced. Potassium level tomorrow. Replace as needed.
[2019-04-11] MEDS: MAG HYDROX/AL HYDROX/SIMETH SUSP 30 ML UDCUP NG PRN (19:52)
[2019-04-11] MEDS: ALPRAZOLAM 0.5 MG TABLET PO PRN (21:38)
[2019-04-12] MEDS: DEXTROSE 5%-LACTATED RINGERS 1,000 ML IV PRN ×2 (01:12→21:19)
[2019-04-12] MEDS: LEVALBUTEROL HCL NEB 0.63 MG/3 ML AMPUL NEB PRN ×2 (01:31→19:41)
[2019-04-12] MEDS: MORPHINE SULFATE 10 MG/ML INJ IV PRN ×3 (02:30→21:18)
[2019-04-12] MEDS: INSULIN LISPRO 100 UNIT/ML 3 ML VIAL SUBCUT SCH ×4 (03:55→18:35)
[2019-04-12] MEDS: MAG HYDROX/AL HYDROX/SIMETH SUSP 30 ML UDCUP NG PRN (05:12)
[2019-04-12] MEDS: ONDANSETRON HCL INJ/PF 4 MG/2 ML SDV IV PRN ×2 (05:32→21:19)
[2019-04-12] MEDS ORDERED: HYDROMORPHONE HCL INJ/PF 2 MG/ML AMPULE ONE (06:11)
[2019-04-12] MEDS ORDERED: FUROSEMIDE INJ/PF 20 MG/2 ML SDV ONE (06:11)
[2019-04-12] MEDS ORDERED: LORAZEPAM INJ 2 MG/1 ML VIAL ONE (06:12)
[2019-04-12 06:27] LABS: HEMATOCRIT 28.2 % (36.0-47.0); HEMOGLOBIN 9.7 g/dL (12.0-15.5); MEAN CORPUSCULAR HEMOGLOBIN 31.4 pg (27.0-33.4); MEAN CORPUSCULAR HGB CONC 34.6 g/dL (32.0-36.0); MEAN CORPUSCULAR VOLUME 91 fl (80-97); PLATELET COUNT 189 10^3/uL (150-450); RED BLOOD COUNT 3.11 10^6/uL (3.72-5.28); RED CELL DISTRIBUTION WIDTH 14.4 % (11.5-14.0); WHITE BLOOD COUNT 10.3 10^3/uL (4.0-10.5)
[2019-04-12] MEDS ORDERED: HYDROMORPHONE HCL INJ/PF 2 MG/ML AMPULE IV ONE (06:45)
[2019-04-12] MEDS ORDERED: LORAZEPAM INJ 2 MG/1 ML VIAL IV ONE (06:45)
[2019-04-12] MEDS ORDERED: FUROSEMIDE INJ/PF 20 MG/2 ML SDV IV ONE (06:45)
[2019-04-12 07:10] LABS: ABSOLUTE LYMPHOCYTES# (MANUAL) 1.2 10^3/uL (0.5-4.7); ABSOLUTE MONOCYTES # (MANUAL) 0.1 10^3/uL (0.1-1.4); BAND NEUTROPHILS % (MANUAL) 9 % (3-5); BASOPHILS % (MANUAL) 0 % (0-2); EOSINOPHILS % (MANUAL) 2 % (0-6); LYMPHOCYTES % (MANUAL) 12 % (13-45); MONOCYTES % (MANUAL) 1 % (3-13); PROMYELOCYTES % (MANUAL) 1 % (0); SEGMENTED NEUTROPHILS % (MAN) 75 % (42-78); TOTAL CELLS COUNTED 100
[2019-04-12 07:12] LABS: ANISOCYTOSIS SLIGHT; OVALOCYTES SLIGHT; PLATELET COMMENT ADEQUATE; TEAR DROP CELLS SLIGHT
[2019-04-12 07:44] LABS: ANION GAP 7 (5-19); BLOOD UREA NITROGEN 11 mg/dL (7-20); CALCIUM 7.8 mg/dL (8.4-10.2); CARBON DIOXIDE 26 mmol/L (22-30); CHLORIDE 101 mmol/L (98-107); GLUCOSE 91 mg/dL (75-110); POTASSIUM 3.3 mmol/L (3.6-5.0)
--- NOTE | 2019-04-12 08:13 | PDOC PROGRESS REPORT ---
Subjective Progress Note for:: 04/12/19 Subjective:: Patient was doing well during the day yesterday, did pass gas, was tolerating ice chips, however towards the evening he started having abdominal pain, ultimately dismounted overnight, patient was given pain medication with improvement but NG tube was unclamped and only 50 cc came out. Talked with the , patient had 5 to 6 cups of ice chips so something was passing. In addition today I had a long discussion with the about prognosis and next steps of care, spent about 45 minutes in discussion. Reason For Visit: SBO HYPOKALOEMIA Physical Exam Vital Signs: Temp Pulse Resp BP Pulse Ox 98.8 F 109 H 16 119/60 93 04/12/19 04:37 04/12/19 04:37 04/12/19 04:37 04/12/19 04:37 04/12/19 04:37 Intake & Output 04/11/19 04/12/19 04/13/19 06:59 06:59 06:59 Intake Total 2935 2050 Output Total 400 600 Balance 2535 1450 Weight 81.1 kg 80.9 kg General appearance: PRESENT: no acute distress, well-developed, well-nourished Head exam: PRESENT: atraumatic, normocephalic Eye exam: PRESENT: conjunctiva pink, EOMI, PERRLA. ABSENT: scleral icterus Ear exam: PRESENT: normal external ear exam Mouth exam: PRESENT: moist, tongue midline Neck exam: ABSENT: carotid bruit, JVD, lymphadenopathy, thyromegaly Respiratory exam: PRESENT: clear to auscultation christian. ABSENT: rales, rhonchi, wheezes Cardiovascular exam: PRESENT: RRR. ABSENT: diastolic murmur, rubs, systolic murmur Pulses: PRESENT: normal dorsalis pedis pul Vascular exam: PRESENT: normal capillary refill GI/Abdominal exam: PRESENT: normal bowel sounds, soft. ABSENT: distended, guarding, mass, organolmegaly, rebound, tenderness Rectal exam: PRESENT: deferred Extremities exam: PRESENT: full ROM. ABSENT: calf tenderness, clubbing, pedal edema Neurological exam: PRESENT: alert, awake, oriented to person, oriented to place, oriented to time, oriented to situation, CN II-XII grossly intact. ABSENT: motor sensory deficit Psychiatric exam: PRESENT: appropriate affect, normal mood. ABSENT: homicidal ideation, suicidal ideation Skin exam: PRESENT: dry, intact, warm. ABSENT: cyanosis, rash Results Laboratory Results: 04/12/19 05:42 04/12/19 05:42 04/11/19 04/11/19 04/12/19 08:15 08:15 05:42 WBC 9.5 10.3 RBC 2.98 L 3.11 L Hgb 9.5 L 9.7 L Hct 26.9 L 28.2 L MCV 90 91 MCH 31.9 31.4 MCHC 35.4 34.6 RDW 14.4 H 14.4 H Plt Count 142 L 189 Seg Neutrophils % Not Reportable Not Reportable Sodium 135.4 L Potassium 3.3 L Chloride 104 Carbon Dioxide 26 Anion Gap 5 BUN 12 Creatinine 0.35 L Est GFR ( Amer) > 60 Glucose 98 Calcium 8.0 L Magnesium 1.6 04/12/19 05:42 WBC RBC Hgb Hct MCV MCH MCHC RDW Plt Count Seg Neutrophils % Sodium 133.5 L Potassium 3.3 L Chloride 101 Carbon Dioxide 26 Anion Gap 7 BUN 11 Creatinine 0.34 L Est GFR ( Amer) > 60 Glucose 91 Calcium 7.8 L Magnesium Impressions: Abdomen/Pelvis CT 04/05/19 00:00 IMPRESSION: Distal small bowel obstruction. KUB X-Ray 04/05/19 13:16 IMPRESSION: Small bowel obstruction with small bowel loops throughout the central abdomen measuring up to 4.7 cm. Chest X-Ray 04/08/19 00:00 IMPRESSION: Satisfactory position of the nasogastric tube. Small bowel obstruction copyright 2011 [employer]- All Rights Reserved Assessment & Plan - Diagnosis (1) Partial small bowel obstruction Is this a current diagnosis for this admission?: Yes Plan: Continue with current postsurgical care (2) Gallbladder cancer Is this a current diagnosis for this admission?: Yes Plan: All treatment on hold - Time Time Spent with patient: 35 or more minutes
[2019-04-12 09:26] LABS: PATH REVIEW PATHOLOGIST REVIEWED
[2019-04-12] MEDS: PANTOPRAZOLE SODIUM 40 MG VIAL IV SCH (09:26)
[2019-04-12] MEDS: FLUTICASONE/UMECLIDIN/VILANTER 100-62.5-25 MCG/DOSE IH SCH (09:27)
[2019-04-12] MEDS: POTASSI CL 20 MEQ/50 ML RIDER 20 MEQ/50 ML RTUPB IV SCH ×2 (11:29→13:35)
--- NOTE | 2019-04-12 16:08 | PDOC PROGRESS REPORT ---
Subjective Progress Note for:: 04/12/19 Subjective:: CARMEN RUSSO is a 64 year old female with a past medical history of COPD, anxiety, hypertension, diabetes, metastatic gallbladder cancer and recurrent small bowel obstruction. She presents with 24 to 48 hours of abdominal pain and distention with nausea and vomiting. In the emergency department she is found to have small bowel obstruction with hypokalemia and hyponatremia. NG tube is placed producing 500 mL of gastric content aspirate. She denies exceptional constipation and CT does not reveal impaction. She is evaluated by surgery and felt to be a poor candidate for surgery unless failing conservative management. She is referred to the hospitalist for admission 04/06/2019. No acute events overnight. Patient sitting she still having persistent abdominal cramps and has been able to pass more flatus otherwise no changes. Nasogastric in place. 04/07/2019. No acute events overnight. Patient still has abdominal pain and distention, has not passed flatus or had any bowel. Denies any nausea, vomiting, chest pain, shortness of breath. Nasogastric tube in place with bilious output. 04/08/2019. No acute events overnight. Patient has had 2 small bowel movements however still with significant abdominal distention and tympany, denies any fever, chills, urinary symptoms. Patient is planned to have surgery by Dr. Michaud possibly tomorrow. 04/09/2019. Unfortunately patient still has not had any flatus or bowel movement, patient is still complaining of persistent abdominal pain, improved with morphine, patient is scheduled for exploratory laparotomy with surgery today. 04/11/2019. No acute events overnight. Unfortunately patient has not passed flatus, abdominal pain improving, patient is ambulatory. Nasogastric tube in place. Was short of breath this morning which has resolved at the time of my visit. 04/12/2019. Saw patient twice today. On my first encounter this morning patient was comfortably sleeping after having a rough night as per . Talked to her who was at the bedside. As per she was doing fine however later towards the evening and at night patient was having abdominal distention, worsening abdominal pain NG tube had to be unclamped only 50 cc came out, she was given some Ativan and Dilaudid and after that she went to sleep. Also noted to have low urine output. Saw patient again in the afternoon awake and alert, in no apparent distress, complaining of continued abdominal pain 3/5, has not passed any gas for the last several hours, complaining of left lower extremity swelling and pain, denies any chest pain or shortness of breath. Reason For Visit: SBO HYPOKALOEMIA Physical Exam Vital Signs: Temp Pulse Resp BP Pulse Ox 100.0 F 63 20 113/72 97 04/12/19 11:53 04/12/19 14:00 04/12/19 11:53 04/12/19 11:53 04/12/19 15:19 Intake & Output 04/11/19 04/12/19 04/13/19 06:59 06:59 06:59 Intake Total 2935 2050 410 Output Total 265 423 0998 Balance 2535 1450 -690 Weight 81.1 kg 80.9 kg General appearance: PRESENT: mild distress Head exam: PRESENT: atraumatic, normocephalic Respiratory exam: PRESENT: clear to auscultation christian. ABSENT: rales, rhonchi, wheezes Cardiovascular exam: PRESENT: RRR. ABSENT: diastolic murmur, rubs, systolic murmur Pulses: PRESENT: normal dorsalis pedis pul GI/Abdominal exam: PRESENT: distended, hypoactive bowel sounds, soft Extremities exam: PRESENT: calf tenderness, full ROM, +1 edema - Left lower extremity.. ABSENT: clubbing, pedal edema Neurological exam: PRESENT: alert, awake, oriented to person, oriented to place, oriented to time, oriented to situation, CN II-XII grossly intact. ABSENT: motor sensory deficit Results Laboratory Results: 04/12/19 05:42 04/12/19 05:42 04/12/19 04/12/19 04/12/19 05:42 05:42 05:42 WBC 10.3 RBC 3.11 L Hgb 9.7 L Hct 28.2 L MCV 91 MCH 31.4 MCHC 34.6 RDW 14.4 H Plt Count 189 Seg Neutrophils % Not Reportable Sodium 133.5 L Potassium 3.3 L Chloride 101 Carbon Dioxide 26 Anion Gap 7 BUN 11 Creatinine 0.34 L Est GFR ( Amer) > 60 Glucose 91 Calcium 7.8 L Magnesium 1.6 Impressions: Abdomen/Pelvis CT 04/05/19 00:00 IMPRESSION: Distal small bowel obstruction. KUB X-Ray 02/28/20 13:16 IMPRESSION: Small bowel obstruction with small bowel loops throughout the central abdomen measuring up to 4.7 cm. Chest X-Ray 04/08/19 00:00 IMPRESSION: Satisfactory position of the nasogastric tube. Small bowel obstruction copyright 2011 [employer]- All Rights Reserved Assessment and Plan - Diagnosis (1) Small bowel obstruction Is this a current diagnosis for this admission?: Yes Plan: Malignant SBO. Status post exploratory laparotomy. Patient still not passing any flatus or having any bowel movements. CT abdomen with water-soluble contrast shows distal small bowel obstruction on admission. NG tube in place. Surgery on board. Recommendations noted. (2) Hyponatremia Is this a current diagnosis for this admission?: Yes Plan: Resolved. BMP tomorrow. Continue NS. (3) Anemia Qualifiers: Other causes of anemia: chronic disease, other Is this a current diagnosis for this admission?: Yes Plan: Likely secondary to chronic disease. Denies any source of external bleeding. Monitor H&H. Supportive transfusions. (4) COPD (chronic obstructive pulmonary disease) Qualifiers: COPD type: unspecified COPD Qualified Code(s): J44.9 - Chronic obstructive pulmonary disease, unspecified Is this a current diagnosis for this admission?: Yes Plan: Does not seem to be acutely exacerbated. Resume home meds. Monitor vitals. (5) Hypokalemia Is this a current diagnosis for this admission?: Yes Plan: Replaced. Potassium level tomorrow. Replace as needed. (6) Left leg swelling Is this a current diagnosis for this admission?: Yes Plan: Noted to have left lower extremity diffuse swelling 1+ pitting edema, with diffuse tenderness. We will obtain bilateral lower extremity Doppler to rule out DVT. Continue leg elevation. Supportive measures. (7) Abdominal pain Qualifiers: Abdominal location: unspecified location Qualified Code(s): R10.9 - Unspecified abdominal pain Is this a current diagnosis for this admission?: Yes Plan: Due to #1. Continue supportive measures. (8) Gallbladder cancer Is this a current diagnosis for this admission?: Yes Plan: Chemotherapy on hold. Oncology on board. Recommendations noted.
[2019-04-12] MEDS: IPRATROPIUM BROMIDE 0.02% NEB 0.5 MG/2.5 ML AMPUL NEB PRN (19:41)
[2019-04-13] MEDS: INSULIN LISPRO 100 UNIT/ML 3 ML VIAL SUBCUT SCH ×4 (00:16→18:43)
[2019-04-13] MEDS: IPRATROPIUM BROMIDE 0.02% NEB 0.5 MG/2.5 ML AMPUL NEB PRN ×2 (01:42→19:23)
[2019-04-13] MEDS: LEVALBUTEROL HCL NEB 0.63 MG/3 ML AMPUL NEB PRN ×3 (01:42→19:23)
[2019-04-13] MEDS: ONDANSETRON HCL INJ/PF 4 MG/2 ML SDV IV PRN (06:30)
[2019-04-13] MEDS: MORPHINE SULFATE 10 MG/ML INJ IV PRN (06:30)
[2019-04-13 07:20] LABS: HEMATOCRIT 28.8 % (36.0-47.0); HEMOGLOBIN 9.8 g/dL (12.0-15.5); MEAN CORPUSCULAR HEMOGLOBIN 30.8 pg (27.0-33.4); MEAN CORPUSCULAR VOLUME 91 fl (80-97); PLATELET COUNT 236 10^3/uL (150-450); RED BLOOD COUNT 3.18 10^6/uL (3.72-5.28); RED CELL DISTRIBUTION WIDTH 14.7 % (11.5-14.0); WHITE BLOOD COUNT 15.6 10^3/uL (4.0-10.5)
[2019-04-13 08:21] LABS: ABSOLUTE LYMPHOCYTES# (MANUAL) 1.7 10^3/uL (0.5-4.7); ABSOLUTE MONOCYTES # (MANUAL) 0.8 10^3/uL (0.1-1.4); BAND NEUTROPHILS % (MANUAL) 1 % (3-5); BASOPHILS % (MANUAL) 0 % (0-2); EOSINOPHILS % (MANUAL) 1 % (0-6); LYMPHOCYTES % (MANUAL) 11 % (13-45); MONOCYTES % (MANUAL) 5 % (3-13); PROMYELOCYTES % (MANUAL) 1 % (0); SEGMENTED NEUTROPHILS % (MAN) 81 % (42-78); TOTAL CELLS COUNTED 100
[2019-04-13 08:24] LABS: ANISOCYTOSIS SLIGHT; OVALOCYTES 1+; POIKILOCYTOSIS SLIGHT; POLYCHROMASIA SLIGHT; TOXIC GRANULATION 2+; TOXIC VACUOLATION PRESENT
[2019-04-13 08:25] LABS: PLATELET COMMENT ADEQUATE
[2019-04-13 09:15] LABS: BLOOD UREA NITROGEN 13 mg/dL (7-20); CALCIUM 7.6 mg/dL (8.4-10.2); GLUCOSE 107 mg/dL (75-110); POTASSIUM 3.5 mmol/L (3.6-5.0)
[2019-04-13 09:21] LABS: CARBON DIOXIDE 30 mmol/L (22-30); CHLORIDE 101 mmol/L (98-107)
[2019-04-13 09:22] LABS: ANION GAP 3 (5-19)
[2019-04-13] MEDS: FLUTICASONE/UMECLIDIN/VILANTER 100-62.5-25 MCG/DOSE IH SCH (10:08)
[2019-04-13] MEDS: LORAZEPAM 1 MG TABLET PO PRN (10:11)
[2019-04-13] MEDS: HYDROMORPHONE HCL INJ/PF 2 MG/ML AMPULE IV PRN ×3 (10:22→22:39)
[2019-04-13] MEDS ORDERED: POTASSI CL 20 MEQ/50 ML RIDER 20 MEQ/50 ML RTUPB IV ONE (11:11)
--- NOTE | 2019-04-13 12:51 | PDOC PROGRESS REPORT ---
Subjective Progress Note for:: 04/13/19 Reason For Visit: SBO HYPOKALOEMIA Physical Exam Vital Signs: Temp Pulse Resp BP Pulse Ox 98.0 F 107 H 18 109/64 95 04/13/19 08:00 04/13/19 08:09 04/13/19 08:09 04/13/19 08:00 04/13/19 08:09 Intake & Output 04/12/19 04/13/19 04/14/19 06:59 06:59 07:59 Intake Total 2050 1770 Output Total 600 2550 Balance 1450 -780 Weight 80.9 kg 81.5 kg Results Laboratory Results: 04/13/19 06:35 04/13/19 06:35 04/13/19 04/13/19 06:35 06:35 WBC 15.6 H RBC 3.18 L Hgb 9.8 L Hct 28.8 L MCV 91 MCH 30.8 MCHC 34.0 RDW 14.7 H Plt Count 236 Seg Neutrophils % Not Reportable Sodium 134.4 L Potassium 3.5 L Chloride 101 Carbon Dioxide 30 Anion Gap 3 L BUN 13 Creatinine 0.36 L Est GFR ( Amer) > 60 Glucose 107 Calcium 7.6 L Impressions: Abdomen/Pelvis CT 04/05/19 00:00 IMPRESSION: Distal small bowel obstruction. KUB X-Ray 04/05/19 13:16 IMPRESSION: Small bowel obstruction with small bowel loops throughout the central abdomen measuring up to 4.7 cm. Chest X-Ray 04/08/19 00:00 IMPRESSION: Satisfactory position of the nasogastric tube. Small bowel obstruction copyright 2011 [employer]- All Rights Reserved Assessment & Plan - Diagnosis (1) Partial small bowel obstruction Is this a current diagnosis for this admission?: Yes - Plan Summary Plan Summary: This is a 64-year-old female with a small bowel obstruction due to metastatic gallbladder cancer. The patient underwent laparotomy with ileocolic anastomosis to bypass the area of obstruction. The patient continues to report some nausea. She is passing flatus. Her NG tube continues to be productive. Her midline incision is clean, dry, and intact. It is okay for her to shower. It is okay to clamp her NG tube and ambulate. She has been instructed if she becomes nauseated, she should reattach it to wall suction. Out of bed/ambulate. Aggressive pulmonary toilet. Supportive care.
--- NOTE | 2019-04-13 12:54 | XCELERA REPORT ---
[address] [facility] [address] Lower Extremity Venous Evaluation Procedure: Color flow and duplex imaging bilaterally of the veins of the lower extremities as well as the Common Femoral veins. Right Sided Venous Evaluation Normal vessel filling wall to wall, compression and augmentation as well as Colour flow down to the infrageniculate veins. Left Sided Venous Evaluation Normal vessel filling wall to wall, compression and augmentation as well as Colour flow down to the infrageniculate veins. Interpretation Summary No duplex evidence of DVT or obstruction in the bilateral lower extremities. Name: CARMEN RUSSO Age: 64 yrs Gender: Female : 1955 Patient Status: Inpatient Patient Location: [address] [place] [address] Study Date: 04/12/2019 07:58 PM Reason For Study: LLE swelling and tenderness r/o DVT Ordering Physician: PARAM CHRISTENSEN Performed By: Roseann Leong : PARAM CHRISTENSEN > David Mckeon
[2019-04-13] MEDS: ALBUMIN HUMAN 12.5 GM/50 ML RTUINJ IV SCH ×4 (13:09→16:47)
[2019-04-13] MEDS: DEXTROSE 5%-LACTATED RINGERS 1,000 ML IV PRN (14:23)
[2019-04-13] MEDS ORDERED: DEXTROSE 10%-WATER 1,000 ML IV PRN (15:13)
--- NOTE | 2019-04-13 15:20 | PDOC PROGRESS REPORT ---
Subjective Progress Note for:: 04/13/19 Subjective:: CARMEN RUSSO is a 64 year old female with a past medical history of COPD, anxiety, hypertension, diabetes, metastatic gallbladder cancer and recurrent small bowel obstruction. She presents with 24 to 48 hours of abdominal pain and distention with nausea and vomiting. In the emergency department she is found to have small bowel obstruction with hypokalemia and hyponatremia. NG tube is placed producing 500 mL of gastric content aspirate. She denies exceptional constipation and CT does not reveal impaction. She is evaluated by surgery and felt to be a poor candidate for surgery unless failing conservative management. She is referred to the hospitalist for admission 04/06/2019. No acute events overnight. Patient sitting she still having persistent abdominal cramps and has been able to pass more flatus otherwise no changes. Nasogastric in place. 04/07/2019. No acute events overnight. Patient still has abdominal pain and distention, has not passed flatus or had any bowel. Denies any nausea, vomiting, chest pain, shortness of breath. Nasogastric tube in place with bilious output. 04/08/2019. No acute events overnight. Patient has had 2 small bowel movements however still with significant abdominal distention and tympany, denies any fever, chills, urinary symptoms. Patient is planned to have surgery by Dr. Michaud possibly tomorrow. 04/09/2019. Unfortunately patient still has not had any flatus or bowel movement, patient is still complaining of persistent abdominal pain, improved with morphine, patient is scheduled for exploratory laparotomy with surgery today. 04/11/2019. No acute events overnight. Unfortunately patient has not passed flatus, abdominal pain improving, patient is ambulatory. Nasogastric tube in place. Was short of breath this morning which has resolved at the time of my visit. 04/12/2019. Saw patient twice today. On my first encounter this morning patient was comfortably sleeping after having a rough night as per . Talked to her who was at the bedside. As per she was doing fine however later towards the evening and at night patient was having abdominal distention, worsening abdominal pain NG tube had to be unclamped only 50 cc came out, she was given some Ativan and Dilaudid and after that she went to sleep. Also noted to have low urine output. Saw patient again in the afternoon awake and alert, in no apparent distress, complaining of continued abdominal pain 04/10, has not passed any gas for the last several hours, complaining of left lower extremity swelling and pain, denies any chest pain or shortness of breath. 04/13/2019. Patient is passing some flatus, tolerating ice chips, complaining of intermittent nausea, intermittent abdominal pain and cramping, anxiety, lower extremity swelling, otherwise denies any shortness of breath, chills, chest pain, vomiting or urinary symptoms. Reason For Visit: SBO HYPOKALOEMIA Physical Exam Vital Signs: Temp Pulse Resp BP Pulse Ox 98.0 F 111 H 16 119/70 95 04/13/19 12:00 04/13/19 12:00 04/13/19 12:00 04/13/19 12:00 04/13/19 12:00 Intake & Output 04/12/19 04/13/19 04/14/19 06:59 06:59 07:59 Intake Total 2050 1770 1100 Output Total 600 2550 200 Balance 1450 -780 900 Weight 80.9 kg 81.5 kg General appearance: PRESENT: no acute distress, well-developed, well-nourished Head exam: PRESENT: atraumatic, normocephalic Respiratory exam: PRESENT: clear to auscultation christian. ABSENT: rales, rhonchi, wheezes Cardiovascular exam: PRESENT: RRR. ABSENT: diastolic murmur, rubs, systolic murmur GI/Abdominal exam: PRESENT: distended, hypoactive bowel sounds, normal bowel sounds, soft. ABSENT: guarding, mass, organolmegaly, rebound, tenderness Extremities exam: PRESENT: +1 edema Neurological exam: PRESENT: alert, awake, oriented to person, oriented to place, oriented to time, oriented to situation, CN II-XII grossly intact. ABSENT: motor sensory deficit Results Laboratory Results: 04/13/19 06:35 04/13/19 06:35 04/13/19 04/13/19 06:35 06:35 WBC 15.6 H RBC 3.18 L Hgb 9.8 L Hct 28.8 L MCV 91 MCH 30.8 MCHC 34.0 RDW 14.7 H Plt Count 236 Seg Neutrophils % Not Reportable Sodium 134.4 L Potassium 3.5 L Chloride 101 Carbon Dioxide 30 Anion Gap 3 L BUN 13 Creatinine 0.36 L Est GFR ( Amer) > 60 Glucose 107 Calcium 7.6 L Impressions: Abdomen/Pelvis CT 04/05/19 00:00 IMPRESSION: Distal small bowel obstruction. KUB X-Ray 04/05/19 13:16 IMPRESSION: Small bowel obstruction with small bowel loops throughout the central abdomen measuring up to 4.7 cm. Chest X-Ray 04/08/19 00:00 IMPRESSION: Satisfactory position of the nasogastric tube. Small bowel obstruction copyright 2011 [employer]- All Rights Reserved Assessment and Plan - Diagnosis (1) Partial small bowel obstruction Is this a current diagnosis for this admission?: Yes Plan: Malignant SBO. Status post exploratory laparotomy. Patient having some flatus. Has not had a bowel movement. CT abdomen with water-soluble contrast shows distal small bowel obstruction on admission. NG tube on intermittent suctioning. Surgery on board. Recommendations noted. (2) Anemia Qualifiers: Other causes of anemia: chronic disease, other Is this a current diagnosis for this admission?: Yes Plan: Likely secondary to chronic disease. Denies any source of external bleeding. Monitor H&H. Supportive transfusions. (3) COPD (chronic obstructive pulmonary disease) Qualifiers: COPD type: unspecified COPD Qualified Code(s): J44.9 - Chronic obstructive pulmonary disease, unspecified Is this a current diagnosis for this admission?: Yes Plan: Does not seem to be acutely exacerbated. PRN DuoNeb's. Incentive spirometry. Flutter valve. Resume home meds. (4) Hypokalemia Is this a current diagnosis for this admission?: Yes Plan: Replaced. Potassium level tomorrow. Replace as needed. (5) Left leg swelling Is this a current diagnosis for this admission?: Yes Plan: Bilateral lower extremity swelling 1+ pitting edema. Bilateral venous Doppler negative for any DVT. Continue leg elevation. P.o. Lasix. Strict in and out. Compression stockings. Supportive measures. (6) Abdominal pain Qualifiers: Abdominal location: unspecified location Qualified Code(s): R10.9 - Unspecified abdominal pain Is this a current diagnosis for this admission?: Yes Plan: Due to #1. Continue supportive measures. (7) Gallbladder cancer Is this a current diagnosis for this admission?: Yes Plan: Chemotherapy on hold. Oncology on board. Recommendations noted. (8) Hyponatremia Is this a current diagnosis for this admission?: Yes Plan: Resolved. BMP tomorrow. Continue NS.
[2019-04-13] MEDS: FUROSEMIDE 20 MG TABLET PO SCH (16:46)
--- NOTE | 2019-04-13 17:35 | PDOC PROGRESS REPORT ---
Subjective Progress Note for:: 04/13/19 Subjective:: Patient states she has had ups and downs. is at bedside. She is passing gas and eating Popsicle, but NG tube remains. Reason For Visit: SBO HYPOKALOEMIA Physical Exam Vital Signs: Temp Pulse Resp BP Pulse Ox 98.0 F 118 H 16 119/70 95 04/13/19 12:00 04/13/19 14:00 04/13/19 12:00 04/13/19 12:00 04/13/19 12:00 Intake & Output 04/12/19 04/13/19 04/14/19 06:59 06:59 07:59 Intake Total 2050 1770 1850 Output Total 600 2550 200 Balance 1450 -780 1650 Weight 80.9 kg 81.5 kg 81.5 kg General appearance: PRESENT: no acute distress Head exam: PRESENT: normocephalic Respiratory exam: PRESENT: unlabored GI/Abdominal exam: PRESENT: distended Neurological exam: PRESENT: alert, awake Psychiatric exam: PRESENT: appropriate affect Skin exam: PRESENT: normal color Results Laboratory Results: 04/13/19 06:35 04/13/19 06:35 04/13/19 04/13/19 06:35 06:35 WBC 15.6 H RBC 3.18 L Hgb 9.8 L Hct 28.8 L MCV 91 MCH 30.8 MCHC 34.0 RDW 14.7 H Plt Count 236 Seg Neutrophils % Not Reportable Sodium 134.4 L Potassium 3.5 L Chloride 101 Carbon Dioxide 30 Anion Gap 3 L BUN 13 Creatinine 0.36 L Est GFR ( Amer) > 60 Glucose 107 Calcium 7.6 L Impressions: Abdomen/Pelvis CT 04/05/19 00:00 IMPRESSION: Distal small bowel obstruction. KUB X-Ray 04/05/19 13:16 IMPRESSION: Small bowel obstruction with small bowel loops throughout the central abdomen measuring up to 4.7 cm. Chest X-Ray 04/08/19 00:00 IMPRESSION: Satisfactory position of the nasogastric tube. Small bowel obstruction copyright 2011 [employer]- All Rights Reserved Assessment & Plan - Diagnosis (1) Gallbladder cancer Is this a current diagnosis for this admission?: Yes Plan: All treatment on hold until discharge. (2) Partial small bowel obstruction Is this a current diagnosis for this admission?: Yes Plan: As per Primary team and surgeons. - Time Time Spent with patient: Less than 15 minutes
[2019-04-13] MEDS: HEPARIN SOD (PORCINE) 5,000 UNIT/ML 1 ML VIAL SUBCUT SCH (22:36)
[2019-04-14] MEDS: INSULIN LISPRO 100 UNIT/ML 3 ML VIAL SUBCUT SCH ×4 (00:34→18:10)
[2019-04-14] MEDS: LEVALBUTEROL HCL NEB 0.63 MG/3 ML AMPUL NEB PRN ×2 (03:08→07:51)
[2019-04-14] MEDS: HEPARIN SOD (PORCINE) 5,000 UNIT/ML 1 ML VIAL SUBCUT SCH ×3 (05:12→21:51)
[2019-04-14 06:34] LABS: ABSOLUTE EOSINOPHILS # (AUTO) 0.1 10^3/uL (0.0-0.6); ABSOLUTE LYMPHOCYTES (AUTO) 1.2 10^3/uL (0.5-4.7); ABSOLUTE NEUT (AUTO) 10.1 10^3/uL (1.7-8.2); BASOPHILS % (AUTO) 0.1 % (0-2); EOSINOPHILS % (AUTO) 0.9 % (0-6); HEMATOCRIT 25.5 % (36.0-47.0); HEMOGLOBIN 8.7 g/dL (12.0-15.5); MEAN CORPUSCULAR HGB CONC 34.1 g/dL (32.0-36.0); MEAN CORPUSCULAR VOLUME 91 fl (80-97); MONOCYTES % (AUTO) 7.7 % (3-13); RED BLOOD COUNT 2.81 10^6/uL (3.72-5.28); RED CELL DISTRIBUTION WIDTH 14.5 % (11.5-14.0); SEGMENTED NEUTROPHILS % (AUTO) 81.3 % (42-78); TOTAL CELLS COUNTED % (AUTO) 100 %; WHITE BLOOD COUNT 12.4 10^3/uL (4.0-10.5)
[2019-04-14 07:00] LABS: ALBUMIN 2.3 g/dL (3.5-5.0); ALKALINE PHOSPHATASE 139 U/L (38-126); ASPARTATE AMINO TRANSFERASE 19 U/L (14-36); BILIRUBIN,DIRECT 0.1 mg/dL (0.0-0.4); BILIRUBIN,TOTAL 0.7 mg/dL (0.2-1.3); BLOOD UREA NITROGEN 11 mg/dL (7-20); CALCIUM 7.8 mg/dL (8.4-10.2); CARBON DIOXIDE 30 mmol/L (22-30); CHLORIDE 100 mmol/L (98-107); GLUCOSE 98 mg/dL (75-110); POTASSIUM 3.3 mmol/L (3.6-5.0); TOTAL PROTEIN 4.6 g/dL (6.3-8.2)
[2019-04-14 07:06] LABS: PLATELET COUNT 241 10^3/uL (150-450)
[2019-04-14 07:10] LABS: ANION GAP 5 (5-19)
[2019-04-14] MEDS ORDERED: POTASSI CL 20 MEQ/50 ML RIDER 20 MEQ/50 ML RTUPB IV ONE (08:00)
[2019-04-14] MEDS: HYDROMORPHONE HCL INJ/PF 2 MG/ML AMPULE IV PRN ×2 (09:17→16:29)
[2019-04-14] MEDS: FUROSEMIDE 20 MG TABLET PO SCH (11:51)
[2019-04-14] MEDS: FLUTICASONE/UMECLIDIN/VILANTER 100-62.5-25 MCG/DOSE IH SCH (11:52)
--- NOTE | 2019-04-14 11:54 | RADIOLOGY REPORT (SQ) ---
EXAM DESCRIPTION: CT ABD/PELVIS NO ORAL OR IV COMPLETED DATE/TIME: 04/14/2019 11:07 am REASON FOR STUDY: eval for acute abdominal wall hernia COMPARISON: 04/05/2019 TECHNIQUE: CT scan of the abdomen and pelvis performed without intravenous or oral contrast. Images reviewed with lung, soft tissue, and bone windows. Reconstructed coronal and sagittal MPR images revi ewed. All images stored on PACS. All CT scanners at this facility use dose modulation, iterative reconstruction, and/or weight based d osing when appropriate to reduce radiation dose to as low as reasonably achievable (ALARA). [facility]: Dose Right [facility]: CareDose [facility]: Dose Right [facility]: Teradose 4D [facility]: [employer] RADIATION DOSE: CT Rad equipment meets quality standard of care and radiation dose reduction techniq ues were employed. CTDIvol: 13.6 mGy. DLP: 769 mGy-cm.mGy. LIMITATIONS: None. FINDINGS: LOWER CHEST: Small bilateral pleural effusions left greater than right. NON-CONTRASTED LIVER, SPLEEN, ADRENALS: Evaluation limited by lack of IV contrast. No identified sign ificant masses. PANCREAS: Fatty infiltration. GALLBLADDER: Surgically absent. RIGHT KIDNEY AND URETER: No suspicious masses. Assessment limited by lack of IV contrast. Periphera l nonobstructive calculi No hydronephrosis or hydroureter. LEFT KIDNEY AND URETER: No suspicious masses. Assessment limited by lack of IV contrast. Peripheral nonobstructive calculi No hydronephrosis or hydroureter. AORTA AND RETROPERITONEUM: No aneurysm. No retroperitoneal masses or adenopathy. BOWEL AND PERITONEAL CAVITY: There is generalize fluid in the abdomen contrast is seen in the colon. No definitive herniation of bowel through the abdominal wall. Minimal free air related to surgery. Radiodensities in the right lower quadrant appeared represent pills. APPENDIX: Not visualized. PELVIS, BLADDER, AND ABDOMINAL WALL:Free fluid in the pelvis. There are 2 fluid collections with air -fluid levels present in the anterior abdominal wall subcutaneous fat. The largest is 7 cm. The oth er is 3 cm. There does not appear to be in the bowel within this area. Overlying surgical clips. BONES: No significant findings. OTHER: No other significant finding. IMPRESSION: Generalize fluid in the abdomen. No herniation of bowel contents. There are air-fluid collections in the anterior abdominal wall subcutaneous fat measuring 7 cm in 3 c m. Differential includes abscess. Small bilateral pleural effusions. COMMENT: Quality ID # [id number]: Final reports with documentation of one or more dose reduction techniques (e.g., Automated exposure control, adjustment of the mA and/or kV according to patient size, use of iterative reconstruction technique) TECHNICAL DOCUMENTATION: JOB ID: [id number] 2010 [employer]- All Rights Reserved Reading location - IP/workstation name: [email or web address]
[2019-04-14] MEDS: ALBUMIN HUMAN 12.5 GM/50 ML RTUINJ IV SCH ×4 (12:32→17:16)
--- NOTE | 2019-04-14 15:43 | PDOC PROGRESS REPORT ---
Subjective Progress Note for:: 04/14/19 Reason For Visit: SBO HYPOKALOEMIA Physical Exam Vital Signs: Temp Pulse Resp BP Pulse Ox 98.5 F 107 H 20 125/60 96 04/14/19 11:57 04/14/19 14:00 04/14/19 11:57 04/14/19 11:57 04/14/19 11:57 Intake & Output 04/13/19 04/14/19 04/15/19 05:59 06:59 06:59 Intake Total 820 Output Total 150 Balance 670 Weight Results Laboratory Results: 04/14/19 06:00 04/14/19 06:00 04/14/19 04/14/19 06:00 06:00 WBC 12.4 H RBC 2.81 L Hgb 8.7 L Hct 25.5 L MCV 91 MCH 31.0 MCHC 34.1 RDW 14.5 H Plt Count 241 Seg Neutrophils % 81.3 H Sodium 134.9 L Potassium 3.3 L Chloride 100 Carbon Dioxide 30 Anion Gap 5 BUN 11 Creatinine 0.39 L Est GFR ( Amer) > 60 Glucose 98 Calcium 7.8 L Total Bilirubin 0.7 AST 19 Alkaline Phosphatase 139 H Total Protein 4.6 L Albumin 2.3 L Impressions: KUB X-Ray 04/05/19 13:16 IMPRESSION: Small bowel obstruction with small bowel loops throughout the central abdomen measuring up to 4.7 cm. Chest X-Ray 04/08/19 00:00 IMPRESSION: Satisfactory position of the nasogastric tube. Small bowel obstruction copyright 2011 [employer]- All Rights Reserved Abdomen/Pelvis CT 04/14/19 00:00 IMPRESSION: Generalize fluid in the abdomen. No herniation of bowel contents. There are air-fluid collections in the anterior abdominal wall subcutaneous fat measuring 7 cm in 3 cm. Differential includes abscess. Small bilateral pleural effusions. Assessment & Plan - Diagnosis (1) Partial small bowel obstruction Is this a current diagnosis for this admission?: Yes - Plan Summary Plan Summary: 64-year-old female with metastatic gallbladder cancer. She had a small bowel obstruction, requiring laparotomy with ileocolic bypass. The patient reports l arge amount of ascites leaking from her incision today. A CT scan was performed. I have looked at the images. The abdominal wall appears grossly intact. There are no large defects. There is no evidence of herniated bowel loops. In light of this, management will consist of control of the ascites. Unfortunately, her ascites is most likely related to her malignancy. I discussed with him several options. They are agreeable to control/containing the ascites with a vacuum-assisted wound apparatus. We will plan to perform wound VAC placement today at the bedside. Patient continues to report bowel function. Clamp NG tube today. Continue with popsicles and ice chips.
--- NOTE | 2019-04-14 15:46 | Operative Report ---
Nonrecallable Operative Report DATE OF SURGERY: 04/14/19 PREOPERATIVE DIAGNOSIS: 1. Peritoneal-cutaneous fistula, draining clear ascites. 2. Metastatic gallbladder cancer. 3. Malignant ascites POSTOPERATIVE DIAGNOSIS: Same as above OPERATION: Placement of negative pressure wound management system. Wound measures 4 cm x 3 cm x 3 cm. SURGEON: JACKIE DUMONT ANESTHESIA: Other - None TISSUE REMOVED OR ALTERED: None COMPLICATIONS: None apparent ESTIMATED BLOOD LOSS: Minimal PROCEDURE: Drains/implants: Wound VAC to lower midline abdominal wound. Procedure in detail: After informed consent was obtained from the patient and her , she was laid in supine position in the hospital room. Several aure were removed from the abdominal skin, below the umbilicus. A large amount of subcutaneous fluid was encountered. This was cleaned away. Wound VAC sponge was then placed into the wound. The wound measured approximately 4 x 3 x 3 cm. An occlusive dressing was placed, and the suction device was applied. Good seal was noted. The procedure at this time was concluded. All sponge, instrument, and needle counts were correct x2. Condition: Fair.
--- NOTE | 2019-04-14 16:33 | PDOC PROGRESS REPORT ---
Subjective Progress Note for:: 04/14/19 Subjective:: CARMEN RUSSO is a 64 year old female with a past medical history of COPD, anxiety, hypertension, diabetes, metastatic gallbladder cancer and recurrent small bowel obstruction. She presents with 24 to 48 hours of abdominal pain and distention with nausea and vomiting. In the emergency department she is found to have small bowel obstruction with hypokalemia and hyponatremia. NG tube is placed producing 500 mL of gastric content aspirate. She denies exceptional constipation and CT does not reveal impaction. She is evaluated by surgery and felt to be a poor candidate for surgery unless failing conservative management. She is referred to the hospitalist for admission 04/06/2019. No acute events overnight. Patient sitting she still having persistent abdominal cramps and has been able to pass more flatus otherwise no changes. Nasogastric in place. 04/07/2019. No acute events overnight. Patient still has abdominal pain and distention, has not passed flatus or had any bowel. Denies any nausea, vomiting, chest pain, shortness of breath. Nasogastric tube in place with bilious output. 04/08/2019. No acute events overnight. Patient has had 2 small bowel movements however still with significant abdominal distention and tympany, denies any fever, chills, urinary symptoms. Patient is planned to have surgery by Dr. Michaud possibly tomorrow. 04/09/2019. Unfortunately patient still has not had any flatus or bowel movement, patient is still complaining of persistent abdominal pain, improved with morphine, patient is scheduled for exploratory laparotomy with surgery today. 04/11/2019. No acute events overnight. Unfortunately patient has not passed flatus, abdominal pain improving, patient is ambulatory. Nasogastric tube in place. Was short of breath this morning which has resolved at the time of my visit. 04/12/2019. Saw patient twice today. On my first encounter this morning patient was comfortably sleeping after having a rough night as per . Talked to her who was at the bedside. As per she was doing fine however later towards the evening and at night patient was having abdominal distention, worsening abdominal pain NG tube had to be unclamped only 50 cc came out, she was given some Ativan and Dilaudid and after that she went to sleep. Also noted to have low urine output. Saw patient again in the afternoon awake and alert, in no apparent distress, complaining of continued abdominal pain 04/10, has not passed any gas for the last several hours, complaining of left lower extremity swelling and pain, denies any chest pain or shortness of breath. 04/13/2019. Patient is passing some flatus, tolerating ice chips, complaining of intermittent nausea, intermittent abdominal pain and cramping, anxiety, lower extremity swelling, otherwise denies any shortness of breath, chills, chest pain, vomiting or urinary symptoms. 04/14/2019. This morning patient had ascitic fluid leak from her abdominal sutures without any dehiscence, as per primary nurse about 500 cc clear ascitic fluid came out. Patient was transferred to [facility], surgery was notified and CT abdomen was ordered which did not show any acute changes, wound VAC was placed. Patient does not seem to be any acute distress however still complaining of abdominal cramping, has been intermittently passing gas, has not had a bowel movement, she is still on intermittent suction. Unfortunately patient has been n.p.o. since admission and is only eating ice chips and popsicles for the last 2 3 days, I am concerned with her nutritional status, I discussed this with Dr. Yeung from surgery and he is okay for arranging for TPN while hoping that she will be able to start taking more p.o. inatke within the next 24 to 48 hours. Patient denies any fever, chills, headache, shortness of breath. at bedside all questions answered. Reason For Visit: SBO HYPOKALOEMIA Physical Exam Vital Signs: Temp Pulse Resp BP Pulse Ox 97.8 F 104 H 20 118/62 98 04/14/19 14:09 04/14/19 14:09 04/14/19 14:09 04/14/19 14:09 04/14/19 14:09 Intake & Output 04/13/19 04/14/19 04/15/19 05:59 06:59 06:59 Intake Total 870 Output Total 150 Balance 720 Weight General appearance: PRESENT: no acute distress Head exam: PRESENT: atraumatic, normocephalic Respiratory exam: PRESENT: clear to auscultation christian. ABSENT: rales, rhonchi, wheezes Cardiovascular exam: PRESENT: RRR. ABSENT: diastolic murmur, rubs, systolic murmur GI/Abdominal exam: PRESENT: ascites, diminished bowel sounds, distended, soft, other - Surgical wound intact, no sign of dehiscence, no sign of infection.. ABSENT: guarding, mass, organolmegaly, rebound, tenderness Neurological exam: PRESENT: alert, awake, oriented to person, oriented to place, oriented to time, oriented to situation, CN II-XII grossly intact. ABSENT: motor sensory deficit Results Laboratory Results: 04/14/19 06:00 04/14/19 06:00 04/14/19 04/14/19 06:00 06:00 WBC 12.4 H RBC 2.81 L Hgb 8.7 L Hct 25.5 L MCV 91 MCH 31.0 MCHC 34.1 RDW 14.5 H Plt Count 241 Seg Neutrophils % 81.3 H Sodium 134.9 L Potassium 3.3 L Chloride 100 Carbon Dioxide 30 Anion Gap 5 BUN 11 Creatinine 0.39 L Est GFR ( Amer) > 60 Glucose 98 Calcium 7.8 L Total Bilirubin 0.7 AST 19 Alkaline Phosphatase 139 H Total Protein 4.6 L Albumin 2.3 L Impressions: KUB X-Ray 04/05/19 13:16 IMPRESSION: Small bowel obstruction with small bowel loops throughout the central abdomen measuring up to 4.7 cm. Chest X-Ray 04/08/19 00:00 IMPRESSION: Satisfactory position of the nasogastric tube. Small bowel obstruction copyright 2011 [employer]- All Rights Reserved Abdomen/Pelvis CT 04/14/19 00:00 IMPRESSION: Generalize fluid in the abdomen. No herniation of bowel contents. There are air-fluid collections in the anterior abdominal wall subcutaneous fat measuring 7 cm in 3 cm. Differential includes abscess. Small bilateral pleural effusions. Assessment and Plan - Diagnosis (1) Partial small bowel obstruction Is this a current diagnosis for this admission?: Yes Plan: Malignant SBO. Status post exploratory laparotomy. Patient having some flatus. Has not had a bowel movement. On 04/14/2019 had ascitic fluid started leaking from surgical wound any dehi scence,CT abdomen did not show any acute abnormalities, patient transferred to ICU, surgery was notified, currently on wound VAC. TPN has been ordered as pt still not PO tolerant. NG tube on intermittent suctioning. Surgery on board. Recommendations noted. (2) Anemia Qualifiers: Other causes of anemia: chronic disease, other Is this a current diagnosis for this admission?: Yes Plan: Likely secondary to chronic disease. Denies any source of external bleeding. Monitor H&H. Supportive transfusions. (3) COPD (chronic obstructive pulmonary disease) Qualifiers: COPD type: unspecified COPD Qualified Code(s): J44.9 - Chronic obstructive pulmonary disease, unspecified Is this a current diagnosis for this admission?: Yes Plan: Does not seem to be acutely exacerbated. PRN DuoNeb's. Incentive spirometry. Flutter valve. Resume home meds. (4) Hypokalemia Is this a current diagnosis for this admission?: Yes Plan: Replaced. Potassium level tomorrow. Replace as needed. (5) Left leg swelling Is this a current diagnosis for this admission?: Yes Plan: Bilateral lower extremity swelling 1+ pitting edema. Bilateral venous Doppler negative for any DVT. Continue leg elevation. P.o. Lasix. Strict in and out. Compression stockings. Supportive measures. (6) Abdominal pain Qualifiers: Abdominal location: unspecified location Qualified Code(s): R10.9 - Unspecified abdominal pain Is this a current diagnosis for this admission?: Yes Plan: Due to #1. Continue supportive measures. (7) Gallbladder cancer Is this a current diagnosis for this admission?: Yes Plan: Chemotherapy on hold. Oncology on board. Recommendations noted. (8) Hyponatremia Is this a current diagnosis for this admission?: Yes Plan: Resolved. BMP tomorrow. Continue NS.
[2019-04-14 17:03] LABS: INTERNATIONAL RATION (INR) 1.78; PROTHROMBIN TIME 20.9 SEC (11.4-15.4)
[2019-04-14] MEDS: LORAZEPAM INJ 2 MG/1 ML VIAL IV PRN (17:22)
[2019-04-14] MEDS: IPRATROPIUM BROMIDE 0.02% NEB 0.5 MG/2.5 ML AMPUL NEB PRN (19:41)
[2019-04-14] MEDS: MORPHINE SULFATE 10 MG/ML INJ IV PRN (20:09)
[2019-04-15] MEDS: INSULIN LISPRO 100 UNIT/ML 3 ML VIAL SUBCUT SCH ×4 (00:13→18:14)
[2019-04-15] MEDS: MORPHINE SULFATE 10 MG/ML INJ IV PRN (00:14)
[2019-04-15] MEDS: HEPARIN SOD (PORCINE) 5,000 UNIT/ML 1 ML VIAL SUBCUT SCH ×3 (05:10→21:46)
[2019-04-15 06:02] LABS: HEMATOCRIT 24.8 % (36.0-47.0); HEMOGLOBIN 8.7 g/dL (12.0-15.5); MEAN CORPUSCULAR HEMOGLOBIN 31.5 pg (27.0-33.4); MEAN CORPUSCULAR HGB CONC 34.9 g/dL (32.0-36.0); MEAN CORPUSCULAR VOLUME 90 fl (80-97); PLATELET COUNT 257 10^3/uL (150-450); RED BLOOD COUNT 2.76 10^6/uL (3.72-5.28); RED CELL DISTRIBUTION WIDTH 14.6 % (11.5-14.0); WHITE BLOOD COUNT 9.7 10^3/uL (4.0-10.5)
[2019-04-15 06:49] LABS: ABSOLUTE LYMPHOCYTES# (MANUAL) 1.6 10^3/uL (0.5-4.7); ABSOLUTE MONOCYTES # (MANUAL) 0.9 10^3/uL (0.1-1.4); BASOPHILS % (MANUAL) 0 % (0-2); EOSINOPHILS % (MANUAL) 2 % (0-6); LYMPHOCYTES % (MANUAL) 17 % (13-45); MONOCYTES % (MANUAL) 9 % (3-13); SEGMENTED NEUTROPHILS % (MAN) 72 % (42-78); TOTAL CELLS COUNTED 100
[2019-04-15 06:51] LABS: ANISOCYTOSIS SLIGHT; TOXIC GRANULATION SLIGHT; TOXIC VACUOLATION PRESENT
[2019-04-15 06:52] LABS: PLATELET CLUMPS PRESENT; PLATELET COMMENT ADEQUATE; POLYCHROMASIA SLIGHT; TEAR DROP CELLS SLIGHT
[2019-04-15 07:20] LABS: ALBUMIN 2.4 g/dL (3.5-5.0); ALKALINE PHOSPHATASE 133 U/L (38-126); ASPARTATE AMINO TRANSFERASE 25 U/L (14-36); BILIRUBIN,DIRECT 0.2 mg/dL (0.0-0.4); BILIRUBIN,TOTAL 0.7 mg/dL (0.2-1.3); BLOOD UREA NITROGEN 6 mg/dL (7-20); CALCIUM 7.7 mg/dL (8.4-10.2); CARBON DIOXIDE 29 mmol/L (22-30); CHLORIDE 98 mmol/L (98-107); GLUCOSE 82 mg/dL (75-110); POTASSIUM 3.4 mmol/L (3.6-5.0); TOTAL PROTEIN 4.6 g/dL (6.3-8.2)
[2019-04-15 07:32] LABS: ANION GAP 3 (5-19); PREALBUMIN < 3.0 mg/dL (17.6-36.0)
--- NOTE | 2019-04-15 08:20 | PDOC PROGRESS REPORT ---
Subjective Progress Note for:: 04/15/19 Subjective:: Patient had high output of fluid from abdominal wound and had wound VAC placed yesterday. About 200 cc overnight per nursing. Did not get up yesterday but planning on getting up today. N.p.o. continued, notes have mentioned initiation of TPN but patient also feels hungry and does not have abdominal pain. Passing gas but no stool yet. Reason For Visit: SBO HYPOKALOEMIA Physical Exam Vital Signs: Temp Pulse Resp BP Pulse Ox 98.3 F 96 16 113/72 98 04/15/19 08:00 04/15/19 08:00 04/15/19 08:00 04/15/19 08:00 04/15/19 08:00 Intake & Output 04/14/19 04/15/19 04/16/19 06:59 06:59 06:59 Intake Total 970 Output Total 700 Balance 270 Weight 81.4 kg General appearance: PRESENT: no acute distress, well-developed, well-nourished Head exam: PRESENT: atraumatic, normocephalic Eye exam: PRESENT: conjunctiva pink, EOMI, PERRLA. ABSENT: scleral icterus Ear exam: PRESENT: normal external ear exam Mouth exam: PRESENT: moist, tongue midline Neck exam: ABSENT: carotid bruit, JVD, lymphadenopathy, thyromegaly Respiratory exam: PRESENT: clear to auscultation christian. ABSENT: rales, rhonchi, wheezes Cardiovascular exam: PRESENT: RRR. ABSENT: diastolic murmur, rubs, systolic murmur Pulses: PRESENT: normal dorsalis pedis pul Vascular exam: PRESENT: normal capillary refill GI/Abdominal exam: PRESENT: normal bowel sounds, soft. ABSENT: distended, guar ding, mass, organolmegaly, rebound, tenderness Rectal exam: PRESENT: deferred Extremities exam: PRESENT: full ROM. ABSENT: calf tenderness, clubbing, pedal edema Neurological exam: PRESENT: alert, awake, oriented to person, oriented to place, oriented to time, oriented to situation, CN II-XII grossly intact. ABSENT: motor sensory deficit Psychiatric exam: PRESENT: appropriate affect, normal mood. ABSENT: homicidal ideation, suicidal ideation Skin exam: PRESENT: dry, intact, warm. ABSENT: cyanosis, rash Results Laboratory Results: 04/15/19 05:15 04/15/19 05:15 04/14/19 04/15/19 04/15/19 16:35 05:15 05:15 WBC 9.7 RBC 2.76 L Hgb 8.7 L Hct 24.8 L MCV 90 MCH 31.5 MCHC 34.9 RDW 14.6 H Plt Count 257 Seg Neutrophils % Not Reportable Sodium 130.1 L Potassium 3.4 L Chloride 98 Carbon Dioxide 29 Anion Gap 3 L BUN 6 L Creatinine 0.36 L Est GFR ( Amer) > 60 Glucose 82 Calcium 7.7 L Magnesium 1.8 Total Bilirubin 0.7 AST 25 Alkaline Phosphatase 133 H Total Protein 4.6 L Albumin 2.4 L Prealbumin < 3.0 L Triglycerides 97 Impressions: KUB X-Ray 04/05/19 13:16 IMPRESSION: Small bowel obstruction with small bowel loops throughout the central abdomen measuring up to 4.7 cm. Chest X-Ray 04/08/19 00:00 IMPRESSION: Satisfactory position of the nasogastric tube. Small bowel obstruction copyright 2011 [employer]- All Rights Reserved Abdomen/Pelvis CT 04/14/19 00:00 IMPRESSION: Generalize fluid in the abdomen. No herniation of bowel contents. There are air-fluid collections in the anterior abdominal wall subcutaneous fat measuring 7 cm in 3 cm. Differential includes abscess. Small bilateral pleural effusions. Assessment & Plan - Diagnosis (1) Partial small bowel obstruction Is this a current diagnosis for this admission?: Yes Plan: Status post surgery continue with wound VAC continue per surgical team (2) Gallbladder cancer Is this a current diagnosis for this admission?: Yes Plan: Continue to hold further chemotherapy unsure of when we can get to more - Time Time Spent with patient: 35 or more minutes
[2019-04-15] MEDS ORDERED: DEXTROSE 5%-NORMAL SALINE 1,000 ML IV PRN (08:29)
[2019-04-15] MEDS: LEVALBUTEROL HCL NEB 0.63 MG/3 ML AMPUL NEB PRN ×2 (08:50→19:56)
[2019-04-15] MEDS: POTASSI CL 20 MEQ/50 ML RIDER 20 MEQ/50 ML RTUPB IV SCH ×3 (09:41→15:32)
[2019-04-15] MEDS: FUROSEMIDE 20 MG TABLET PO SCH (09:41)
[2019-04-15] MEDS: FLUTICASONE/UMECLIDIN/VILANTER 100-62.5-25 MCG/DOSE IH SCH (09:42)
[2019-04-15] MEDS ORDERED: FAT EMULSIONS 250 ML IV SCH (10:00)
[2019-04-15] MEDS: HYDROMORPHONE HCL INJ/PF 2 MG/ML AMPULE IV PRN ×3 (10:21→23:30)
--- NOTE | 2019-04-15 14:15 | PDOC PROGRESS REPORT ---
Subjective Reason For Visit: SBO HYPOKALOEMIA Physical Exam Vital Signs: Temp Pulse Resp BP Pulse Ox 98.0 F 103 H 16 124/74 95 04/15/19 11:40 04/15/19 11:40 04/15/19 11:40 04/15/19 11:40 04/15/19 11:40 Intake & Output 04/14/19 04/15/19 04/16/19 06:59 06:59 06:59 Intake Total 970 67 Output Total 700 Balance 270 67 Weight 81.4 kg 81.4 kg Results Laboratory Results: 04/15/19 05:15 04/15/19 05:15 04/14/19 04/15/19 04/15/19 16:35 05:15 05:15 WBC 9.7 RBC 2.76 L Hgb 8.7 L Hct 24.8 L MCV 90 MCH 31.5 MCHC 34.9 RDW 14.6 H Plt Count 257 Seg Neutrophils % Not Reportable Sodium 130.1 L Potassium 3.4 L Chloride 98 Carbon Dioxide 29 Anion Gap 3 L BUN 6 L Creatinine 0.36 L Est GFR ( Amer) > 60 Glucose 82 Calcium 7.7 L Magnesium 1.8 Total Bilirubin 0.7 AST 25 Alkaline Phosphatase 133 H Total Protein 4.6 L Albumin 2.4 L Prealbumin < 3.0 L Triglycerides 97 Impressions: KUB X-Ray 04/05/19 13:16 IMPRESSION: Small bowel obstruction with small bowel loops throughout the central abdomen measuring up to 4.7 cm. Chest X-Ray 04/08/19 00:00 IMPRESSION: Satisfactory position of the nasogastric tube. Small bowel obstruction copyright 2011 [employer]- All Rights Reserved Abdomen/Pelvis CT 04/14/19 00:00 IMPRESSION: Generalize fluid in the abdomen. No herniation of bowel contents. There are air-fluid collections in the anterior abdominal wall subcutaneous fat measuring 7 cm in 3 cm. Differential includes abscess. Small bilateral pleural effusions. Assessment & Plan - Diagnosis (1) Partial small bowel obstruction Is this a current diagnosis for this admission?: Yes - Plan Summary Plan Summary: 64-year-old female with metastatic gallbladder cancer. She had a small bowel obstruction, requiring laparotomy with ileocolic bypass. The patient reported large amount of ascites leaking from her incision yesterday. A CT shows the abdominal wall is grossly intact. There are no large defects. There is no evidence of herniated bowel loops. In light of this, a wound VAC was placed yesterday at the bedside to control her ascites. This has been overall successful. Patient continues to report bowel function. D/C NG tube today. Advance to full liquids.
--- NOTE | 2019-04-15 15:17 | PDOC PROGRESS REPORT ---
Subjective Progress Note for:: 04/15/19 Subjective:: Patient's NG tube has been clamped since yesterday and at the time of my encounter this morning, patient stated that she has not felt nauseous, vomited arrival. Abdominal pain is improved and she would like to try an oral diet. Reason For Visit: SBO HYPOKALOEMIA Physical Exam Vital Signs: Temp Pulse Resp BP Pulse Ox 98.0 F 103 H 16 124/74 95 04/15/19 11:40 04/15/19 11:40 04/15/19 11:40 04/15/19 11:40 04/15/19 11:40 Intake & Output 04/14/19 04/15/19 04/16/19 06:59 06:59 06:59 Intake Total 970 67 Output Total 700 Balance 270 67 Weight 81.4 kg 81.4 kg General appearance: PRESENT: no acute distress, cooperative Neck exam: ABSENT: JVD Respiratory exam: PRESENT: clear to auscultation christian, unlabored. ABSENT: tachypnea, wheezes Cardiovascular exam: PRESENT: RRR, +S1, +S2. ABSENT: tachycardia GI/Abdominal exam: PRESENT: normal bowel sounds, soft, tenderness - Mildly, other - Surgical wound connected to wound VAC. ABSENT: distended, rebound, rigid Extremities exam: ABSENT: calf tenderness Neurological exam: PRESENT: alert, awake Focused psych exam: ABSENT: pressured speech Results Laboratory Results: 04/15/19 05:15 04/15/19 05:15 04/14/19 04/15/19 04/15/19 16:35 05:15 05:15 WBC 9.7 RBC 2.76 L Hgb 8.7 L Hct 24.8 L MCV 90 MCH 31.5 MCHC 34.9 RDW 14.6 H Plt Count 257 Seg Neutrophils % Not Reportable Sodium 130.1 L Potassium 3.4 L Chloride 98 Carbon Dioxide 29 Anion Gap 3 L BUN 6 L Creatinine 0.36 L Est GFR ( Amer) > 60 Glucose 82 Calcium 7.7 L Magnesium 1.8 Total Bilirubin 0.7 AST 25 Alkaline Phosphatase 133 H Total Protein 4.6 L Albumin 2.4 L Prealbumin < 3.0 L Triglycerides 97 Impressions: KUB X-Ray 04/05/19 13:16 IMPRESSION: Small bowel obstruction with small bowel loops throughout the central abdomen measuring up to 4.7 cm. Chest X-Ray 04/08/19 00:00 IMPRESSION: Satisfactory position of the nasogastric tube. Small bowel obstruction copyright 2011 [employer]- All Rights Reserved Abdomen/Pelvis CT 04/14/19 00:00 IMPRESSION: Generalize fluid in the abdomen. No herniation of bowel contents. There are air-fluid collections in the anterior abdominal wall subcutaneous fat measuring 7 cm in 3 cm. Differential includes abscess. Small bilateral pleural effusions. Assessment and Plan - Diagnosis (1) Partial small bowel obstruction Is this a current diagnosis for this admission?: Yes Plan: Malignant SBO. Status post exploratory laparotomy. On 04/14/2019 had ascitic fluid started leaking from surgical wound and a wound VAC was placed TPN has been started Will attempt liquid diet today as well NG tube clamped (2) Hyponatremia Is this a current diagnosis for this admission?: Yes Plan: Suspect that this is due to hypovolemia//Poor caloric intake as patient has been n.p.o. for past few days. Hopefully this will improve with starting TPN and trial of liquid diet. Check metabolic panel tomorrow. (3) Left leg swelling Is this a current diagnosis for this admission?: Yes Plan: Bilateral lower extremity swelling 1+ pitting edema. Bilateral venous Doppler negative for any DVT. Continue leg elevation. P.o. Lasix. Strict in and out. Compression stockings. Supportive measures. (4) COPD (chronic obstructive pulmonary disease) Qualifiers: COPD type: unspecified COPD Qualified Code(s): J44.9 - Chronic obstructive pulmonary disease, unspecified Is this a current diagnosis for this admission?: Yes Plan: Does not seem to be acutely exacerbated. PRN DuoNeb's. Incentive spirometry. Flutter valve. Resume home meds. (5) Anemia Qualifiers: Other causes of anemia: chronic disease, other Is this a current diagnosis for this admission?: Yes Plan: Likely secondary to chronic disease. Denies any source of external bleeding. Monitor H&H. Supportive transfusions. (6) Gallbladder cancer Is this a current diagnosis for this admission?: Yes Plan: Chemotherapy on hold. Oncology on board. Recommendations noted. - Time Time Spent with patient: Less than 15 minutes
[2019-04-15] MEDS: AMINO ACIDS 5 %/DEXTROSE 20 % 1,000 ML IV PRN (18:22)
[2019-04-15] MEDS: IPRATROPIUM BROMIDE 0.02% NEB 0.5 MG/2.5 ML AMPUL NEB PRN (19:56)
[2019-04-16] MEDS: INSULIN LISPRO 100 UNIT/ML 3 ML VIAL SUBCUT SCH ×4 (00:36→18:38)
[2019-04-16 05:16] LABS: HEMATOCRIT 25.5 % (36.0-47.0); HEMOGLOBIN 8.8 g/dL (12.0-15.5); MEAN CORPUSCULAR HEMOGLOBIN 31.3 pg (27.0-33.4); MEAN CORPUSCULAR HGB CONC 34.5 g/dL (32.0-36.0); MEAN CORPUSCULAR VOLUME 91 fl (80-97); RED BLOOD COUNT 2.81 10^6/uL (3.72-5.28); RED CELL DISTRIBUTION WIDTH 14.5 % (11.5-14.0); WHITE BLOOD COUNT 8.7 10^3/uL (4.0-10.5)
[2019-04-16] MEDS: HEPARIN SOD (PORCINE) 5,000 UNIT/ML 1 ML VIAL SUBCUT SCH ×3 (05:31→21:05)
[2019-04-16 06:07] LABS: ABSOLUTE LYMPHOCYTES# (MANUAL) 0.6 10^3/uL (0.5-4.7); ABSOLUTE MONOCYTES # (MANUAL) 1.2 10^3/uL (0.1-1.4); BAND NEUTROPHILS % (MANUAL) 3 % (3-5); BASOPHILS % (MANUAL) 0 % (0-2); EOSINOPHILS % (MANUAL) 1 % (0-6); LYMPHOCYTES % (MANUAL) 7 % (13-45); MONOCYTES % (MANUAL) 14 % (3-13); SEGMENTED NEUTROPHILS % (MAN) 75 % (42-78); TOTAL CELLS COUNTED 100
[2019-04-16 06:11] LABS: ANISOCYTOSIS SLIGHT; OVALOCYTES SLIGHT
[2019-04-16 06:12] LABS: PLATELET COUNT 302 10^3/uL (150-450); POLYCHROMASIA SLIGHT; TEAR DROP CELLS SLIGHT
[2019-04-16 06:13] LABS: PLATELET COMMENT ADEQUATE
--- NOTE | 2019-04-16 08:10 | PDOC PROGRESS REPORT ---
Subjective Progress Note for:: 04/16/19 Reason For Visit: SBO HYPOKALOEMIA Feels better NG tube is out he was on a full liquid diet Physical Exam Vital Signs: Temp Pulse Resp BP Pulse Ox 98.2 F 92 20 116/62 97 04/16/19 04:30 04/16/19 07:00 04/16/19 04:30 04/16/19 04:30 04/16/19 04:30 Intake & Output 04/15/19 04/16/19 04/17/19 06:59 06:59 06:59 Intake Total 970 1150 Output Total 700 2450 Balance 270 -1300 Weight 81.4 kg 83.3 kg General appearance: PRESENT: no acute distress Head exam: PRESENT: normocephalic Eye exam: PRESENT: EOMI Ear exam: PRESENT: normal external ear exam Mouth exam: PRESENT: moist Neck exam: PRESENT: full ROM Respiratory exam: PRESENT: clear to auscultation christian Cardiovascular exam: PRESENT: RRR Pulses: PRESENT: normal radial pulses, normal femoral pulses Vascular exam: PRESENT: normal capillary refill Breast: PRESENT: Normal GI/Abdominal exam: PRESENT: soft - Incision is clean the wound VAC is in place at the lower aspect of the incision draining approximately 3 to 400 cc of ascitic fluid a day Rectal exam: PRESENT: deferred Gentrourinary exam: PRESENT: indwelling catheter Extremities exam: PRESENT: full ROM Musculoskeletal exam: PRESENT: full ROM Neurological exam: PRESENT: alert, awake, oriented to person, oriented to place Psychiatric exam: PRESENT: appropriate affect Skin exam: PRESENT: dry Results Laboratory Results: 04/16/19 04:55 04/15/19 05:15 04/16/19 04:55 WBC 8.7 RBC 2.81 L Hgb 8.8 L Hct 25.5 L MCV 91 MCH 31.3 MCHC 34.5 RDW 14.5 H Plt Count 302 Seg Neutrophils % Not Reportable Impressions: KUB X-Ray 04/05/19 13:16 IMPRESSION: Small bowel obstruction with small bowel loops throughout the central abdomen measuring up to 4.7 cm. Chest X-Ray 04/08/19 00:00 IMPRESSION: Satisfactory position of the nasogastric tube. Small bowel obstruction copyright 2011 [employer]- All Rights Reserved Abdomen/Pelvis CT 04/14/19 00:00 IMPRESSION: Generalize fluid in the abdomen. No herniation of bowel contents. There are air-fluid collections in the anterior abdominal wall subcutaneous fat measuring 7 cm in 3 cm. Differential includes abscess. Small bilateral pleural effusions. Assessment & Plan - Plan Summary Plan Summary: Impression status post enteroenterostomy for bowel obstruction secondary to malignant small bowel obstruction. NG tube is now been removed and she is on a full liquid diet. She is passing flatus she has not yet had a bowel movement. The wound VAC is in place draining approximately 3 to 400 cc of ascitic fluid per day. Plan we will continue full liquid diet till she starts having bowel movements increase activity today. We will remove the Santos catheter today. We will continue the wound VAC.
--- NOTE | 2019-04-16 08:26 | PDOC PROGRESS REPORT ---
Subjective Progress Note for:: 04/16/19 Subjective:: Patient is anxious to get up and walk around again today. She states that she is getting stronger. NG has been removed. She is tolerating liquid diet. Santos is to be removed today. Reason For Visit: SBO HYPOKALOEMIA Physical Exam Vital Signs: Temp Pulse Resp BP Pulse Ox 98.2 F 92 20 116/62 97 04/16/19 04:30 04/16/19 07:00 04/16/19 04:30 04/16/19 04:30 04/16/19 04:30 Intake & Output 04/15/19 04/16/19 04/17/19 06:59 06:59 06:59 Intake Total 970 1150 Output Total 700 2450 Balance 270 -1300 Weight 81.4 kg 83.3 kg General appearance: PRESENT: no acute distress Respiratory exam: PRESENT: unlabored GI/Abdominal exam: PRESENT: distended Extremities exam: PRESENT: +1 edema Neurological exam: PRESENT: alert, awake Psychiatric exam: PRESENT: appropriate affect Skin exam: PRESENT: normal color Results Laboratory Results: 04/16/19 04:55 04/15/19 05:15 04/16/19 04:55 WBC 8.7 RBC 2.81 L Hgb 8.8 L Hct 25.5 L MCV 91 MCH 31.3 MCHC 34.5 RDW 14.5 H Plt Count 302 Seg Neutrophils % Not Reportable Impressions: KUB X-Ray 04/05/19 13:16 IMPRESSION: Small bowel obstruction with small bowel loops throughout the central abdomen measuring up to 4.7 cm. Chest X-Ray 04/08/19 00:00 IMPRESSION: Satisfactory position of the nasogastric tube. Small bowel obstruction copyright 2011 [employer]- All Rights Reserved Abdomen/Pelvis CT 04/14/19 00:00 IMPRESSION: Generalize fluid in the abdomen. No herniation of bowel contents. There are air-fluid collections in the anterior abdominal wall subcutaneous fat measuring 7 cm in 3 cm. Differential includes abscess. Small bilateral pleural effusions. Assessment & Plan - Diagnosis (1) Gallbladder cancer Is this a current diagnosis for this admission?: Yes (2) Partial small bowel obstruction Is this a current diagnosis for this admission?: Yes - Time Time Spent with patient: Less than 15 minutes - Plan Summary Plan Summary: She is improving. Continue ambulation and advancing diet. All chemo is on hold until she has recovered from surgery. Hopefully, can be discharged soon.
[2019-04-16] MEDS: MORPHINE SULFATE 10 MG/ML INJ IV PRN ×2 (08:28→14:57)
[2019-04-16 08:59] LABS: ALBUMIN 2.2 g/dL (3.5-5.0); ALKALINE PHOSPHATASE 124 U/L (38-126); ASPARTATE AMINO TRANSFERASE 26 U/L (14-36); BILIRUBIN,DIRECT 0.1 mg/dL (0.0-0.4); BILIRUBIN,TOTAL 0.5 mg/dL (0.2-1.3); BLOOD UREA NITROGEN 5 mg/dL (7-20); CALCIUM 7.8 mg/dL (8.4-10.2); GLUCOSE 100 mg/dL (75-110); PHOSPHORUS 2.9 mg/dL (2.5-4.5); TOTAL PROTEIN 4.3 g/dL (6.3-8.2)
[2019-04-16 09:04] LABS: CARBON DIOXIDE 30 mmol/L (22-30); CHLORIDE 99 mmol/L (98-107)
[2019-04-16 09:06] LABS: PREALBUMIN 3.1 mg/dL (17.6-36.0)
[2019-04-16 09:10] LABS: ANION GAP 4 (5-19)
[2019-04-16] MEDS: DEXTROSE 10%-WATER 1,000 ML IV PRN (09:43)
[2019-04-16] MEDS: FLUTICASONE/UMECLIDIN/VILANTER 100-62.5-25 MCG/DOSE IH SCH (09:43)
[2019-04-16] MEDS: FUROSEMIDE 20 MG TABLET PO SCH (09:43)
[2019-04-16] MEDS: HYDROMORPHONE HCL INJ/PF 2 MG/ML AMPULE IV PRN ×2 (11:36→20:03)
--- NOTE | 2019-04-16 16:36 | PDOC PROGRESS REPORT ---
Subjective Progress Note for:: 04/16/19 Subjective:: NG tube removed yesterday. Patient is doing well today. She states that she ate all her meals yesterday with a full liquid diet and did not experience any nausea or vomiting at all. Abdominal pain is also improving. Still yet to have a bowel movement at the time of encounter this morning. However passing flatus. Reason For Visit: SBO HYPOKALOEMIA Physical Exam Vital Signs: Temp Pulse Resp BP Pulse Ox 98.0 F 101 H 17 122/89 H 96 04/16/19 16:04 04/16/19 16:04 04/16/19 16:04 04/16/19 16:04 04/16/19 16:04 Intake & Output 04/15/19 04/16/19 04/17/19 06:59 06:59 06:59 Intake Total 970 1150 Output Total 700 2450 Balance 270 -1300 Weight 81.4 kg 83.3 kg General appearance: PRESENT: no acute distress, cooperative Neck exam: PRESENT: JVD Respiratory exam: PRESENT: clear to auscultation christian, unlabored. ABSENT: tachypnea, wheezes Cardiovascular exam: PRESENT: +S1, +S2 GI/Abdominal exam: PRESENT: normal bowel sounds, soft, tenderness - Mild. ABSENT: distended, rebound, rigid Neurological exam: PRESENT: alert, awake, oriented to person, oriented to place, oriented to time Psychiatric exam: ABSENT: agitated, anxious Focused psych exam: ABSENT: pressured speech Skin exam: ABSENT: jaundice Results Laboratory Results: 04/16/19 04:55 04/16/19 04:55 04/16/19 04/16/19 04:55 04:55 WBC 8.7 RBC 2.81 L Hgb 8.8 L Hct 25.5 L MCV 91 MCH 31.3 MCHC 34.5 RDW 14.5 H Plt Count 302 Seg Neutrophils % Not Reportable Sodium 132.8 L Potassium 4.0 Chloride 99 Carbon Dioxide 30 Anion Gap 4 L BUN 5 L Creatinine 0.35 L Est GFR ( Amer) > 60 Glucose 100 Calcium 7.8 L Phosphorus 2.9 Magnesium 1.9 Total Bilirubin 0.5 AST 26 Alkaline Phosphatase 124 Total Protein 4.3 L Albumin 2.2 L Prealbumin 3.1 L Impressions: KUB X-Ray 04/05/19 13:16 IMPRESSION: Small bowel obstruction with small bowel loops throughout the central abdomen measuring up to 4.7 cm. Chest X-Ray 04/08/19 00:00 IMPRESSION: Satisfactory position of the nasogastric tube. Small bowel obstruction copyright 2011 [employer]- All Rights Reserved Abdomen/Pelvis CT 04/14/19 00:00 IMPRESSION: Generalize fluid in the abdomen. No herniation of bowel contents. There are air-fluid collections in the anterior abdominal wall subcutaneous fat measuring 7 cm in 3 cm. Differential includes abscess. Small bilateral pleural effusions. Assessment and Plan - Diagnosis (1) Partial small bowel obstruction Is this a current diagnosis for this admission?: Yes Plan: Malignant SBO. Status post exploratory laparotomy on 04/09/2019. On 04/14/2019 had ascitic fluid started leaking from surgical wound and a wound VAC was placed Discussed patient with surgical list would like to continue patient on TPN for another day or 2 while her oral intake improves Tolerating full liquid diet. Plan is to maintain liquid diet until she has bowel movement. (2) Hyponatremia Is this a current diagnosis for this admission?: Yes Plan: Suspect that this is due to hypovolemia//Poor caloric intake as patient has been n.p.o. for past few days. Improving. Monitor CMP (3) Left leg swelling Is this a current diagnosis for this admission?: Yes Plan: Bilateral lower extremity swelling 1+ pitting edema. Bilateral venous Doppler negative for any DVT. Continue leg elevation. P.o. Lasix. Strict in and out. Compression stockings. Supportive measures. (4) COPD (chronic obstructive pulmonary disease) Qualifiers: COPD type: unspecified COPD Qualified Code(s): J44.9 - Chronic obstructive pulmonary disease, unspecified Is this a current diagnosis for this admission?: Yes Plan: Does not seem to be acutely exacerbated. PRN DuoNeb's. Incentive spirometry. Flutter valve. Resume home meds. (5) Gallbladder cancer Is this a current diagnosis for this admission?: Yes Plan: Chemotherapy on hold. Oncology on board. Recommendations noted. (6) Anemia Qualifiers: Other causes of anemia: chronic disease, other Is this a current diagnosis for this admission?: Yes - Time Time Spent with patient: Less than 15 minutes
[2019-04-16] MEDS: MAG HYDROX/AL HYDROX/SIMETH SUSP 30 ML UDCUP NG PRN (17:05)
[2019-04-16] MEDS: AMINO ACIDS 5 %/DEXTROSE 20 % 1,000 ML IV PRN (17:05)
[2019-04-16] MEDS: LEVALBUTEROL HCL NEB 0.63 MG/3 ML AMPUL NEB PRN (20:35)
[2019-04-16] MEDS: IPRATROPIUM BROMIDE 0.02% NEB 0.5 MG/2.5 ML AMPUL NEB PRN (20:35)
[2019-04-16] MEDS: LORAZEPAM INJ 2 MG/1 ML VIAL IV PRN (23:19)
[2019-04-17] MEDS: INSULIN LISPRO 100 UNIT/ML 3 ML VIAL SUBCUT SCH ×4 (00:20→21:32)
[2019-04-17] MEDS: HYDROMORPHONE HCL INJ/PF 2 MG/ML AMPULE IV PRN ×3 (02:55→12:34)
[2019-04-17] MEDS: HEPARIN SOD (PORCINE) 5,000 UNIT/ML 1 ML VIAL SUBCUT SCH ×3 (05:02→21:36)
[2019-04-17 05:16] LABS: HEMATOCRIT 25.3 % (36.0-47.0); HEMOGLOBIN 8.7 g/dL (12.0-15.5); MEAN CORPUSCULAR HEMOGLOBIN 30.9 pg (27.0-33.4); MEAN CORPUSCULAR HGB CONC 34.4 g/dL (32.0-36.0); MEAN CORPUSCULAR VOLUME 90 fl (80-97); PLATELET COUNT 308 10^3/uL (150-450); RED BLOOD COUNT 2.82 10^6/uL (3.72-5.28); RED CELL DISTRIBUTION WIDTH 14.7 % (11.5-14.0); WHITE BLOOD COUNT 14.8 10^3/uL (4.0-10.5)
[2019-04-17 05:39] LABS: ALBUMIN 2.1 g/dL (3.5-5.0); ALKALINE PHOSPHATASE 129 U/L (38-126); ANION GAP 6 (5-19); ASPARTATE AMINO TRANSFERASE 26 U/L (14-36); BILIRUBIN,DIRECT 0.3 mg/dL (0.0-0.4); BILIRUBIN,TOTAL 0.5 mg/dL (0.2-1.3); BLOOD UREA NITROGEN 6 mg/dL (7-20); CALCIUM 7.5 mg/dL (8.4-10.2); CARBON DIOXIDE 28 mmol/L (22-30); CHLORIDE 96 mmol/L (98-107); GLUCOSE 113 mg/dL (75-110); POTASSIUM 3.2 mmol/L (3.6-5.0); TOTAL PROTEIN 4.6 g/dL (6.3-8.2)
[2019-04-17 05:46] LABS: ABSOLUTE LYMPHOCYTES# (MANUAL) 1.3 10^3/uL (0.5-4.7); ABSOLUTE MONOCYTES # (MANUAL) 1.5 10^3/uL (0.1-1.4); BAND NEUTROPHILS % (MANUAL) 3 % (3-5); BASOPHILS % (MANUAL) 0 % (0-2); EOSINOPHILS % (MANUAL) 0 % (0-6); LYMPHOCYTES % (MANUAL) 9 % (13-45); MONOCYTES % (MANUAL) 10 % (3-13); PREALBUMIN 3.8 mg/dL (17.6-36.0); SEGMENTED NEUTROPHILS % (MAN) 78 % (42-78); TOTAL CELLS COUNTED 100
[2019-04-17 05:47] LABS: ANISOCYTOSIS SLIGHT; PLATELET COMMENT ADEQUATE; POLYCHROMASIA SLIGHT
[2019-04-17] MEDS ORDERED: BISACODYL 10 MG SUPP.RECT PR ONE ×2 (07:46→09:00)
--- NOTE | 2019-04-17 07:57 | PDOC PROGRESS REPORT ---
Subjective Progress Note for:: 04/17/19 Subjective:: feel ok, some crampy abd pain Reason For Visit: SBO HYPOKALOEMIA Physical Exam Vital Signs: Temp Pulse Resp BP Pulse Ox 98.3 F 88 20 100/55 L 97 04/17/19 03:23 04/17/19 07:00 04/17/19 03:23 04/17/19 03:23 04/17/19 03:58 Intake & Output 04/16/19 04/17/19 04/18/19 06:59 06:59 06:59 Intake Total 1150 1290 Output Total 2450 2750 Balance -1300 -1460 Weight 83.3 kg 83.2 kg General appearance: PRESENT: no acute distress Head exam: PRESENT: normocephalic Eye exam: PRESENT: EOMI Ear exam: PRESENT: normal external ear exam Mouth exam: PRESENT: moist Neck exam: PRESENT: full ROM Respiratory exam: PRESENT: clear to auscultation christian Cardiovascular exam: PRESENT: RRR GI/Abdominal exam: PRESENT: ascites, firm, other - wound vac in place, with decreasing op Rectal exam: PRESENT: deferred Extremities exam: PRESENT: +1 edema Musculoskeletal exam: PRESENT: ambulatory, full ROM Neurological exam: PRESENT: alert, awake, oriented to person, oriented to place Psychiatric exam: PRESENT: appropriate affect Skin exam: PRESENT: dry Results Laboratory Results: 04/17/19 05:00 04/17/19 05:00 04/16/19 04/17/19 04/17/19 04:55 05:00 05:00 WBC 14.8 H RBC 2.82 L Hgb 8.7 L Hct 25.3 L MCV 90 MCH 30.9 MCHC 34.4 RDW 14.7 H Plt Count 308 Seg Neutrophils % Not Reportable Sodium 132.8 L 129.7 L Potassium 4.0 3.2 L Chloride 99 96 L Carbon Dioxide 30 28 Anion Gap 4 L 6 BUN 5 L 6 L Creatinine 0.35 L 0.29 L Est GFR ( Amer) > 60 > 60 Glucose 100 113 H Calcium 7.8 L 7.5 L Phosphorus 2.9 Magnesium 1.9 Total Bilirubin 0.5 0.5 AST 26 26 Alkaline Phosphatase 124 129 H Total Protein 4.3 L 4.6 L Albumin 2.2 L 2.1 L Prealbumin 3.1 L 3.8 L Impressions: KUB X-Ray 04/05/19 13:16 IMPRESSION: Small bowel obstruction with small bowel loops throughout the central abdomen measuring up to 4.7 cm. Chest X-Ray 04/08/19 00:00 IMPRESSION: Satisfactory position of the nasogastric tube. Small bowel obstruction copyright 2011 [employer]- All Rights Reserved Abdomen/Pelvis CT 04/14/19 00:00 IMPRESSION: Generalize fluid in the abdomen. No herniation of bowel contents. There are air-fluid collections in the anterior abdominal wall subcutaneous fat measuring 7 cm in 3 cm. Differential includes abscess. Small bilateral pleural effusions. Assessment & Plan - Plan Summary Plan Summary: ascitic leak decreasing\ pt with lower Na this am to 129 abd with + bs, and flatus, no bm pt is taking full liquids plan- will discuss hyponatremia with medicine, prob due to ascitic leak\ will add meropenium due to rising wbc dulcolax suppositioiry add reglan 10mg q 6
--- NOTE | 2019-04-17 08:47 | PDOC PROGRESS REPORT ---
Subjective Progress Note for:: 04/17/19 Subjective:: Patient is doing better, diet is being advanced, no BM yet Reason For Visit: SBO HYPOKALOEMIA Physical Exam Vital Signs: Temp Pulse Resp BP Pulse Ox 98.1 F 101 H 18 113/65 95 04/17/19 07:28 04/17/19 08:36 04/17/19 08:36 04/17/19 07:28 04/17/19 08:36 Intake & Output 04/16/19 04/17/19 04/18/19 06:59 06:59 06:59 Intake Total 1150 1290 Output Total 2450 2750 Balance -1300 -1460 Weight 83.3 kg 83.2 kg General appearance: PRESENT: no acute distress, well-developed, well-nourished Head exam: PRESENT: atraumatic, normocephalic Eye exam: PRESENT: conjunctiva pink, EOMI, PERRLA. ABSENT: scleral icterus Ear exam: PRESENT: normal external ear exam Mouth exam: PRESENT: moist, tongue midline Neck exam: ABSENT: carotid bruit, JVD, lymphadenopathy, thyromegaly Respiratory exam: PRESENT: clear to auscultation christian. ABSENT: rales, rhonchi, wheezes Cardiovascular exam: PRESENT: RRR. ABSENT: diastolic murmur, rubs, systolic murmur Pulses: PRESENT: normal dorsalis pedis pul Vascular exam: PRESENT: normal capillary refill GI/Abdominal exam: PRESENT: normal bowel sounds, soft. ABSENT: distended, guarding, mass, organolmegaly, rebound, tenderness Rectal exam: PRESENT: deferred Extremities exam: PRESENT: full ROM. ABSENT: calf tenderness, clubbing, pedal edema Neurological exam: PRESENT: alert, awake, oriented to person, oriented to place, oriented to time, oriented to situation, CN II-XII grossly intact. ABSENT: motor sensory deficit Psychiatric exam: PRESENT: appropriate affect, normal mood. ABSENT: homicidal ideation, suicidal ideation Skin exam: PRESENT: dry, intact, warm. ABSENT: cyanosis, rash Results Laboratory Results: 04/17/19 05:00 04/17/19 05:00 04/16/19 04/17/19 04/17/19 04:55 05:00 05:00 WBC 14.8 H RBC 2.82 L Hgb 8.7 L Hct 25.3 L MCV 90 MCH 30.9 MCHC 34.4 RDW 14.7 H Plt Count 308 Seg Neutrophils % Not Reportable Sodium 132.8 L 129.7 L Potassium 4.0 3.2 L Chloride 99 96 L Carbon Dioxide 30 28 Anion Gap 4 L 6 BUN 5 L 6 L Creatinine 0.35 L 0.29 L Est GFR ( Amer) > 60 > 60 Glucose 100 113 H Calcium 7.8 L 7.5 L Phosphorus 2.9 Magnesium 1.9 Total Bilirubin 0.5 0.5 AST 26 26 Alkaline Phosphatase 124 129 H Total Protein 4.3 L 4.6 L Albumin 2.2 L 2.1 L Prealbumin 3.1 L 3.8 L Impressions: KUB X-Ray 04/05/19 13:16 IMPRESSION: Small bowel obstruction with small bowel loops throughout the central abdomen measuring up to 4.7 cm. Chest X-Ray 04/08/19 00:00 IMPRESSION: Satisfactory position of the nasogastric tube. Small bowel obstruction copyright 2011 [email or web address]- All Rights Reserved Abdomen/Pelvis CT 04/14/19 00:00 IMPRESSION: Generalize fluid in the abdomen. No herniation of bowel contents. There are air-fluid collections in the anterior abdominal wall subcutaneous fat measuring 7 cm in 3 cm. Differential includes abscess. Small bilateral pleural effusions. Status: Image reviewed by me Assessment & Plan - Diagnosis (1) Partial small bowel obstruction Is this a current diagnosis for this admission?: Yes Plan: imProving (2) Gallbladder cancer Is this a current diagnosis for this admission?: Yes Plan: Holding on therapy - Time Time Spent with patient: 15-24 minutes
[2019-04-17] MEDS: POTASSIUM CHLORIDE 10 MEQ TABLET.ER PO SCH ×2 (10:00→15:33)
[2019-04-17] MEDS: FLUTICASONE/UMECLIDIN/VILANTER 100-62.5-25 MCG/DOSE IH SCH (10:01)
[2019-04-17] MEDS: FUROSEMIDE 20 MG TABLET PO SCH (10:01)
[2019-04-17] MEDS: METOCLOPRAMIDE HCL INJ/PF 10 MG/2 ML SDV IV SCH ×2 (12:34→18:48)
[2019-04-17] MEDS: DEXTROSE 10%-WATER 1,000 ML IV PRN (12:35)
--- NOTE | 2019-04-17 12:41 | PDOC PROGRESS REPORT ---
Subjective Progress Note for:: 04/17/19 Subjective:: Patient states that she ate all her meals yesterday with a full liquid diet and did not experience any nausea or vomiting at all. Abdominal pain is also improving. Still yet to have a bowel movement at the time of encounter this morning. However passing flatus. Reason For Visit: SBO HYPOKALOEMIA Physical Exam Vital Signs: Temp Pulse Resp BP Pulse Ox 98.1 F 101 H 18 113/65 95 04/17/19 07:28 04/17/19 08:36 04/17/19 08:36 04/17/19 07:28 04/17/19 08:36 Intake & Output 04/16/19 04/17/19 04/18/19 06:59 06:59 06:59 Intake Total 1150 1290 Output Total 2450 2750 Balance -1300 -1460 Weight 83.3 kg 83.2 kg General appearance: PRESENT: no acute distress, cooperative Neck exam: ABSENT: JVD Respiratory exam: PRESENT: clear to auscultation christian, unlabored. ABSENT: tachypnea, wheezes Cardiovascular exam: PRESENT: RRR, +S1, +S2. ABSENT: tachycardia GI/Abdominal exam: PRESENT: distended, firm, normal bowel sounds, soft. ABSENT: guarding, rebound, rigid, tenderness Neurological exam: PRESENT: alert, awake, oriented to person, oriented to place, oriented to time Results Laboratory Results: 04/17/19 05:00 04/17/19 05:00 04/17/19 04/17/19 05:00 05:00 WBC 14.8 H RBC 2.82 L Hgb 8.7 L Hct 25.3 L MCV 90 MCH 30.9 MCHC 34.4 RDW 14.7 H Plt Count 308 Seg Neutrophils % Not Reportable Sodium 129.7 L Potassium 3.2 L Chloride 96 L Carbon Dioxide 28 Anion Gap 6 BUN 6 L Creatinine 0.29 L Est GFR ( Amer) > 60 Glucose 113 H Calcium 7.5 L Total Bilirubin 0.5 AST 26 Alkaline Phosphatase 129 H Total Protein 4.6 L Albumin 2.1 L Prealbumin 3.8 L Impressions: KUB X-Ray 04/05/19 13:16 IMPRESSION: Small bowel obstruction with small bowel loops throughout the central abdomen measuring up to 4.7 cm. Chest X-Ray 04/08/19 00:00 IMPRESSION: Satisfactory position of the nasogastric tube. Small bowel obstruction copyright 2010 [employer]- All Rights Reserved Abdomen/Pelvis CT 04/14/19 00:00 IMPRESSION: Generalize fluid in the abdomen. No herniation of bowel contents. There are air-fluid collections in the anterior abdominal wall subcutaneous fat measuring 7 cm in 3 cm. Differential includes abscess. Small bilateral pleural effusions. Assessment and Plan - Diagnosis (1) Partial small bowel obstruction Is this a current diagnosis for this admission?: Yes Plan: Malignant SBO. Status post exploratory laparotomy on 04/09/2019. On 04/14/2019 had ascitic fluid started leaking from surgical wound and a wound VAC was placed D/c tpn Tolerating full liquid diet. Surgery following-added meropenem due to increasing WBC We will check a KUB since no bowel movements yet (2) Hyponatremia Is this a current diagnosis for this admission?: Yes Plan: Placed on normal saline through today recheck BMP tomorrow morning (3) Left leg swelling Is this a current diagnosis for this admission?: Yes Plan: Bilateral lower extremity swelling 1+ pitting edema. Bilateral venous Doppler negative for any DVT. Continue leg elevation. P.o. Lasix. Strict in and out. Compression stockings. Supportive measures. (4) COPD (chronic obstructive pulmonary disease) Qualifiers: COPD type: unspecified COPD Qualified Code(s): J44.9 - Chronic obstructive pulmonary disease, unspecified Is this a current diagnosis for this admission?: Yes Plan: Does not seem to be acutely exacerbated. PRN DuoNeb's. Incentive spirometry. Flutter valve. Resume home meds. (5) Gallbladder cancer Is this a current diagnosis for this admission?: Yes (6) Anemia Qualifiers: Other causes of anemia: chronic disease, other Is this a current diagnosis for this admission?: Yes - Time Time Spent with patient: Less than 15 minutes
--- NOTE | 2019-04-17 15:06 | RADIOLOGY REPORT (SQ) ---
EXAM DESCRIPTION: KUB/ABDOMEN (SINGLE VIEW) COMPLETED DATE/TIME: 04/17/2019 2:51 pm REASON FOR STUDY: sbo/constipation COMPARISON: 04/05/2019 NUMBER OF VIEWS: One view. TECHNIQUE: Supine radiographic image of the abdomen acquired. LIMITATIONS: None. FINDINGS: BOWEL GAS PATTERN: Gas pattern is nonobstructive. Mild colonic distention. CALCIFICATIONS: No suspicious calcifications. SOFT TISSUES: No gross mass or suggestion of organomegaly. HARDWARE: Surgical clips are present the right upper quadrant and in the midline. BONES: No acute fracture. No worrisome bone lesions. OTHER: Probable small left effusion. IMPRESSION: Mild colonic distention. No evidence of mechanical obstruction. TECHNICAL DOCUMENTATION: JOB ID: [id number] 2010 [employer]- All Rights Reserved Reading location - IP/workstation name: [email or web address]
[2019-04-17] MEDS: NORMAL SALINE 1000 ML 1,000 ML IV PRN (15:08)
[2019-04-17] MEDS: MEROPENEM 1 GM in NORMAL SALINE 50 ML IV SCH ×2 (15:12→21:35)
[2019-04-17] MEDS: MORPHINE SULFATE 10 MG/ML INJ IV PRN ×2 (15:33→19:58)
[2019-04-17] MEDS: MAG HYDROX/AL HYDROX/SIMETH SUSP 30 ML UDCUP NG PRN (16:58)
[2019-04-17] MEDS: LEVALBUTEROL HCL NEB 0.63 MG/3 ML AMPUL NEB PRN (17:56)
[2019-04-17] MEDS: LORAZEPAM INJ 2 MG/1 ML VIAL IV PRN (21:39)
[2019-04-18] MEDS: METOCLOPRAMIDE HCL INJ/PF 10 MG/2 ML SDV IV SCH ×5 (00:13→23:59)
[2019-04-18] MEDS: HYDROMORPHONE HCL INJ/PF 2 MG/ML AMPULE IV PRN ×4 (00:21→17:41)
[2019-04-18] MEDS: NORMAL SALINE 1000 ML 1,000 ML IV PRN ×2 (02:01→13:22)
[2019-04-18] MEDS: MEROPENEM 1 GM in NORMAL SALINE 50 ML IV SCH ×3 (05:15→21:46)
[2019-04-18] MEDS: HEPARIN SOD (PORCINE) 5,000 UNIT/ML 1 ML VIAL SUBCUT SCH ×3 (05:16→21:45)
[2019-04-18 06:51] LABS: ALBUMIN 2.1 g/dL (3.5-5.0); ALKALINE PHOSPHATASE 160 U/L (38-126); ANION GAP 5 (5-19); ASPARTATE AMINO TRANSFERASE 26 U/L (14-36); BILIRUBIN,DIRECT 0.1 mg/dL (0.0-0.4); BILIRUBIN,TOTAL 0.5 mg/dL (0.2-1.3); BLOOD UREA NITROGEN 5 mg/dL (7-20); CALCIUM 7.4 mg/dL (8.4-10.2); CARBON DIOXIDE 28 mmol/L (22-30); CHLORIDE 100 mmol/L (98-107); GLUCOSE 83 mg/dL (75-110); POTASSIUM 4.2 mmol/L (3.6-5.0); TOTAL PROTEIN 4.3 g/dL (6.3-8.2); TRIGLYCERIDES 126 mg/dL (<150)
[2019-04-18] MEDS: INSULIN LISPRO 100 UNIT/ML 3 ML VIAL SUBCUT SCH ×4 (07:50→21:47)
--- NOTE | 2019-04-18 08:11 | PDOC PROGRESS REPORT ---
Subjective Progress Note for:: 04/18/19 Subjective:: Patient did have a full BM at 5:30 AM this morning, seems to be doing well this morning Reason For Visit: SBO HYPOKALOEMIA Physical Exam Vital Signs: Temp Pulse Resp BP Pulse Ox 97.6 F 94 16 110/65 95 04/18/19 07:27 04/18/19 07:27 04/18/19 07:27 04/18/19 07:27 04/18/19 07:27 Intake & Output 04/17/19 04/18/19 04/19/19 06:59 06:59 06:59 Intake Total 1290 2460 Output Total 2750 1750 Balance -1460 710 Weight 83.2 kg 83.2 kg General appearance: PRESENT: no acute distress, well-developed, well-nourished Head exam: PRESENT: atraumatic, normocephalic Eye exam: PRESENT: conjunctiva pink, EOMI, PERRLA. ABSENT: scleral icterus Ear exam: PRESENT: normal external ear exam Mouth exam: PRESENT: moist, tongue midline Neck exam: ABSENT: carotid bruit, JVD, lymphadenopathy, thyromegaly Respiratory exam: PRESENT: clear to auscultation christian. ABSENT: rales, rhonchi, wheezes Cardiovascular exam: PRESENT: RRR. ABSENT: diastolic murmur, rubs, systolic murmur Pulses: PRESENT: normal dorsalis pedis pul Vascular exam: PRESENT: normal capillary refill GI/Abdominal exam: PRESENT: normal bowel sounds, soft. ABSENT: distended, guarding, mass, organolmegaly, rebound, tenderness Rectal exam: PRESENT: deferred Extremities exam: PRESENT: full ROM. ABSENT: calf tenderness, clubbing, pedal edema Neurological exam: PRESENT: alert, awake, oriented to person, oriented to place, oriented to time, oriented to situation, CN II-XII grossly intact. ABSENT: motor sensory deficit Psychiatric exam: PRESENT: appropriate affect, normal mood. ABSENT: homicidal ideation, suicidal ideation Skin exam: PRESENT: dry, intact, warm. ABSENT: cyanosis, rash Results Laboratory Results: 04/17/19 05:00 04/18/19 05:20 04/18/19 05:20 Sodium 132.9 L Potassium 4.2 Chloride 100 Carbon Dioxide 28 Anion Gap 5 BUN 5 L Creatinine 0.35 L Est GFR ( Amer) > 60 Glucose 83 Calcium 7.4 L Magnesium 2.1 Total Bilirubin 0.5 AST 26 Alkaline Phosphatase 160 H Total Protein 4.3 L Albumin 2.1 L Triglycerides 126 Impressions: Chest X-Ray 04/08/19 00:00 IMPRESSION: Satisfactory position of the nasogastric tube. Small bowel obstruction copyright 2011 [employer]- All Rights Reserved Abdomen/Pelvis CT 04/14/19 00:00 IMPRESSION: Generalize fluid in the abdomen. No herniation of bowel contents. There are air-fluid collections in the anterior abdominal wall subcutaneous fat measuring 7 cm in 3 cm. Differential includes abscess. Small bilateral pleural effusions. KUB X-Ray 04/17/19 00:00 IMPRESSION: Mild colonic distention. No evidence of mechanical obstruction. Assessment & Plan - Diagnosis (1) Partial small bowel obstruction Is this a current diagnosis for this admission?: Yes Plan: Improved, BM this morning, await surgical opinion on advancing diet (2) Gallbladder cancer Is this a current diagnosis for this admission?: Yes Plan: Holding on all therapy for now - Time Time Spent with patient: 15-24 minutes
[2019-04-18] MEDS: FUROSEMIDE 20 MG TABLET PO SCH (09:11)
[2019-04-18] MEDS: FLUTICASONE/UMECLIDIN/VILANTER 100-62.5-25 MCG/DOSE IH SCH (09:19)
--- NOTE | 2019-04-18 09:53 | PDOC PROGRESS REPORT ---
Subjective Progress Note for:: 04/18/19 Subjective:: feels better, passing bm's dayday full liquids Reason For Visit: SBO HYPOKALOEMIA Physical Exam Vital Signs: Temp Pulse Resp BP Pulse Ox 97.6 F 94 16 110/65 95 04/18/19 07:27 04/18/19 07:27 04/18/19 07:27 04/18/19 07:27 04/18/19 07:27 Intake & Output 04/17/19 04/18/19 04/19/19 06:59 06:59 06:59 Intake Total 1290 2460 Output Total 2750 1750 50 Balance -1460 710 -50 Weight 83.2 kg 83.2 kg General appearance: PRESENT: no acute distress Head exam: PRESENT: normocephalic Eye exam: PRESENT: EOMI Ear exam: PRESENT: normal external ear exam Mouth exam: PRESENT: moist Neck exam: PRESENT: full ROM Respiratory exam: PRESENT: clear to auscultation christian Cardiovascular exam: PRESENT: RRR Pulses: PRESENT: normal radial pulses, normal femoral pulses Breast: PRESENT: Normal GI/Abdominal exam: PRESENT: firm Rectal exam: PRESENT: deferred Extremities exam: PRESENT: full ROM Neurological exam: PRESENT: alert, awake, oriented to person, oriented to place Psychiatric exam: PRESENT: appropriate affect Skin exam: PRESENT: dry Results Laboratory Results: 04/17/19 05:00 04/18/19 05:20 04/18/19 05:20 Sodium 132.9 L Potassium 4.2 Chloride 100 Carbon Dioxide 28 Anion Gap 5 BUN 5 L Creatinine 0.35 L Est GFR ( Amer) > 60 Glucose 83 Calcium 7.4 L Magnesium 2.1 Total Bilirubin 0.5 AST 26 Alkaline Phosphatase 160 H Total Protein 4.3 L Albumin 2.1 L Triglycerides 126 Impressions: Chest X-Ray 04/08/19 00:00 IMPRESSION: Satisfactory position of the nasogastric tube. Small bowel obstruction copyright 2011 [employer] [facility]- All Rights Reserved Abdomen/Pelvis CT 04/14/19 00:00 IMPRESSION: Generalize fluid in the abdomen. No herniation of bowel contents. There are air-fluid collections in the anterior abdominal wall subcutaneous fat measuring 7 cm in 3 cm. Differential includes abscess. Small bilateral pleural effusions. KUB X-Ray 04/17/19 00:00 IMPRESSION: Mild colonic distention. No evidence of mechanical obstruction. Assessment & Plan - Plan Summary Plan Summary: s/p enteroenterostomy for malig small bowel obstruction metastatic gallbladder cancer now passing stool has ascitic leak plan will advance diet will plan on suture closure of skin in attempt to stop ascitic leak
[2019-04-18 12:04] LABS: ABSOLUTE EOSINOPHILS # (AUTO) 0.1 10^3/uL (0.0-0.6); ABSOLUTE LYMPHOCYTES (AUTO) 1.5 10^3/uL (0.5-4.7); ABSOLUTE MONOCYTES (AUTO) 1.3 10^3/uL (0.1-1.4); ABSOLUTE NEUT (AUTO) 10.7 10^3/uL (1.7-8.2); BASOPHILS % (AUTO) 0.3 % (0-2); EOSINOPHILS % (AUTO) 0.7 % (0-6); HEMATOCRIT 25.3 % (36.0-47.0); HEMOGLOBIN 8.7 g/dL (12.0-15.5); LYMPHOCYTES % (AUTO) 10.9 % (13-45); MEAN CORPUSCULAR HEMOGLOBIN 31.2 pg (27.0-33.4); MEAN CORPUSCULAR HGB CONC 34.4 g/dL (32.0-36.0); MEAN CORPUSCULAR VOLUME 91 fl (80-97); MONOCYTES % (AUTO) 9.4 % (3-13); PLATELET COUNT 313 10^3/uL (150-450); RED BLOOD COUNT 2.78 10^6/uL (3.72-5.28); RED CELL DISTRIBUTION WIDTH 14.8 % (11.5-14.0); SEGMENTED NEUTROPHILS % (AUTO) 78.7 % (42-78); TOTAL CELLS COUNTED % (AUTO) 100 %; WHITE BLOOD COUNT 13.6 10^3/uL (4.0-10.5)
--- NOTE | 2019-04-18 12:30 | PDOC PROGRESS REPORT ---
Subjective Progress Note for:: 04/18/19 Subjective:: Patient feels better today. She had a bowel movement. Excited to eat something more substantial. Denies any significant abdominal pain at this time. Ascitic leak is still present but somewhat less prior. Reason For Visit: SBO HYPOKALOEMIA Physical Exam Vital Signs: Temp Pulse Resp BP Pulse Ox 97.6 F 94 16 110/65 95 04/18/19 07:27 04/18/19 07:27 04/18/19 07:27 04/18/19 07:27 04/18/19 07:27 Intake & Output 04/17/19 04/18/19 04/19/19 06:59 06:59 06:59 Intake Total 1290 2460 Output Total 2750 1750 50 Balance -1460 710 -50 Weight 83.2 kg 83.2 kg General appearance: PRESENT: no acute distress, cooperative Neck exam: ABSENT: JVD Respiratory exam: PRESENT: clear to auscultation christian, unlabored. ABSENT: tachypnea, wheezes Cardiovascular exam: PRESENT: RRR, +S1, +S2. ABSENT: tachycardia GI/Abdominal exam: PRESENT: distended, soft. ABSENT: guarding, rebound, rigid, tenderness Neurological exam: PRESENT: alert, awake, oriented to person, oriented to place, oriented to time Results Laboratory Results: 04/18/19 11:07 04/18/19 05:20 04/18/19 04/18/19 05:20 11:07 WBC 13.6 H RBC 2.78 L Hgb 8.7 L Hct 25.3 L MCV 91 MCH 31.2 MCHC 34.4 RDW 14.8 H Plt Count 313 Seg Neutrophils % 78.7 H Sodium 132.9 L Potassium 4.2 Chloride 100 Carbon Dioxide 28 Anion Gap 5 BUN 5 L Creatinine 0.35 L Est GFR ( Amer) > 60 Glucose 83 Calcium 7.4 L Magnesium 2.1 Total Bilirubin 0.5 AST 26 Alkaline Phosphatase 160 H Total Protein 4.3 L Albumin 2.1 L Triglycerides 126 Impressions: Chest X-Ray 04/08/19 00:00 IMPRESSION: Satisfactory position of the nasogastric tube. Small bowel obstruction copyright 2011 [employer]- All Rights Reserved Abdomen/Pelvis CT 04/14/19 00:00 IMPRESSION: Generalize fluid in the abdomen. No herniation of bowel contents. There are air-fluid collections in the anterior abdominal wall subcutaneous fat measuring 7 cm in 3 cm. Differential includes abscess. Small bilateral pleural effusions. KUB X-Ray 04/17/19 00:00 IMPRESSION: Mild colonic distention. No evidence of mechanical obstruction. Assessment and Plan - Diagnosis (1) Partial small bowel obstruction Is this a current diagnosis for this admission?: Yes Plan: Malignant SBO. Status post exploratory laparotomy and enteroenterostomy on 04/09/2019. On 04/14/2019 had ascitic fluid started leaking from surgical wound and a wound VAC was placed Diet advanced to mechanical soft Surgery following and planning for suture closure to help with ascitic leak Noted still on meropenem. WBC may be due to patient's underlying malignancy. Plan to discontinue meropenem tomorrow if clinical picture continues to improve. (2) Hyponatremia Is this a current diagnosis for this admission?: Yes Plan: Improving with normal saline. Discontinue Lasix. Check BMP again tomorrow (3) Left leg swelling Is this a current diagnosis for this admission?: Yes Plan: Ultrasound negative for DVT. Continue leg elevation. Compression stockings. Supportive measures. (4) COPD (chronic obstructive pulmonary disease) Qualifiers: COPD type: unspecified COPD Qualified Code(s): J44.9 - Chronic obstructive pulmonary disease, unspecified Is this a current diagnosis for this admission?: Yes Plan: Does not seem to be acutely exacerbated. PRN nebs. (5) Gallbladder cancer Is this a current diagnosis for this admission?: Yes Plan: Chemotherapy on hold. Oncology on board. Recommendations noted. (6) Anemia Qualifiers: Other causes of anemia: chronic disease, other Is this a current diagnosis for this admission?: Yes - Time Time Spent with patient: Less than 15 minutes
[2019-04-18] MEDS: IPRATROPIUM BROMIDE 0.02% NEB 0.5 MG/2.5 ML AMPUL NEB PRN (16:11)
[2019-04-18] MEDS: LEVALBUTEROL HCL NEB 0.63 MG/3 ML AMPUL NEB PRN (16:11)
[2019-04-18] MEDS: LORAZEPAM INJ 2 MG/1 ML VIAL IV PRN (18:34)
[2019-04-18] MEDS: MORPHINE SULFATE 10 MG/ML INJ IV PRN (21:46)
[2019-04-19] MEDS: HYDROMORPHONE HCL INJ/PF 2 MG/ML AMPULE IV PRN ×4 (00:14→22:14)
[2019-04-19] MEDS: IPRATROPIUM BROMIDE 0.02% NEB 0.5 MG/2.5 ML AMPUL NEB PRN (00:23)
[2019-04-19] MEDS: NORMAL SALINE 1000 ML 1,000 ML IV PRN (00:50)
[2019-04-19] MEDS: ONDANSETRON HCL INJ/PF 4 MG/2 ML SDV IV PRN (02:35)
[2019-04-19 04:58] LABS: ALBUMIN 2.1 g/dL (3.5-5.0); ALKALINE PHOSPHATASE 171 U/L (38-126); ANION GAP 5 (5-19); ASPARTATE AMINO TRANSFERASE 29 U/L (14-36); BILIRUBIN,DIRECT 0.3 mg/dL (0.0-0.4); BILIRUBIN,TOTAL 0.4 mg/dL (0.2-1.3); BLOOD UREA NITROGEN 6 mg/dL (7-20); CALCIUM 7.7 mg/dL (8.4-10.2); CARBON DIOXIDE 25 mmol/L (22-30); CHLORIDE 103 mmol/L (98-107); GLUCOSE 91 mg/dL (75-110); POTASSIUM 3.9 mmol/L (3.6-5.0); TOTAL PROTEIN 4.6 g/dL (6.3-8.2)
[2019-04-19] MEDS: MEROPENEM 1 GM in NORMAL SALINE 50 ML IV SCH ×2 (05:02→22:10)
[2019-04-19] MEDS: HEPARIN SOD (PORCINE) 5,000 UNIT/ML 1 ML VIAL SUBCUT SCH ×3 (05:04→22:05)
[2019-04-19] MEDS: METOCLOPRAMIDE HCL INJ/PF 10 MG/2 ML SDV IV SCH ×3 (05:04→18:00)
--- NOTE | 2019-04-19 08:03 | PDOC PROGRESS REPORT ---
Subjective Progress Note for:: 04/19/19 Subjective:: Patient still putting out a lot of fluid from the wound VAC, lower extremity edema is worsened and there is fluid coming from the left side of the abdomen as well, over last 48 hours patient is taking in more p.o. and taking in a good amount of oral liquids, did take mechanical diet down yesterday, discussed stopping IV fluids and giving some Lasix today. Reason For Visit: SBO HYPOKALOEMIA Physical Exam Vital Signs: Temp Pulse Resp BP Pulse Ox 97.8 F 99 16 110/64 99 04/19/19 03:38 04/19/19 03:38 04/19/19 00:24 04/19/19 03:38 04/19/19 03:38 Intake & Output 04/18/19 04/19/19 04/20/19 06:59 06:59 06:59 Intake Total 2510 3400 Output Total 1750 3260 Balance 760 140 Weight 83.2 kg 84.3 kg General appearance: PRESENT: no acute distress, well-developed, well-nourished Head exam: PRESENT: atraumatic, normocephalic Eye exam: PRESENT: conjunctiva pink, EOMI, PERRLA. ABSENT: scleral icterus Ear exam: PRESENT: normal external ear exam Mouth exam: PRESENT: moist, tongue midline Neck exam: ABSENT: carotid bruit, JVD, lymphadenopathy, thyromegaly Respiratory exam: PRESENT: clear to auscultation christian. ABSENT: rales, rhonchi, wheezes Cardiovascular exam: PRESENT: RRR. ABSENT: diastolic murmur, rubs, systolic murmur Pulses: PRESENT: normal dorsalis pedis pul Vascular exam: PRESENT: normal capillary refill GI/Abdominal exam: PRESENT: normal bowel sounds, soft. ABSENT: distended, guarding, mass, organolmegaly, rebound, tenderness Rectal exam: PRESENT: deferred Extremities exam: PRESENT: full ROM. ABSENT: calf tenderness, clubbing, pedal edema Neurological exam: PRESENT: alert, awake, oriented to person, oriented to place, oriented to time, oriented to situation, CN II-XII grossly intact. ABSENT: motor sensory deficit Psychiatric exam: PRESENT: appropriate affect, normal mood. ABSENT: homicidal ideation, suicidal ideation Skin exam: PRESENT: dry, intact, warm. ABSENT: cyanosis, rash Results Laboratory Results: 04/18/19 11:07 04/19/19 04:23 04/18/19 04/19/19 11:07 04:23 WBC 13.6 H RBC 2.78 L Hgb 8.7 L Hct 25.3 L MCV 91 MCH 31.2 MCHC 34.4 RDW 14.8 H Plt Count 313 Seg Neutrophils % 78.7 H Sodium 133.4 L Potassium 3.9 Chloride 103 Carbon Dioxide 25 Anion Gap 5 BUN 6 L Creatinine 0.37 L Est GFR ( Amer) > 60 Glucose 91 Calcium 7.7 L Total Bilirubin 0.4 AST 29 Alkaline Phosphatase 171 H Total Protein 4.6 L Albumin 2.1 L Impressions: Chest X-Ray 04/08/19 00:00 IMPRESSION: Satisfactory position of the nasogastric tube. Small bowel obstruction copyright 2011 [email or web address]- All Rights Reserved Abdomen/Pelvis CT 04/14/19 00:00 IMPRESSION: Generalize fluid in the abdomen. No herniation of bowel contents. There are air-fluid collections in the anterior abdominal wall subcutaneous fat measuring 7 cm in 3 cm. Differential includes abscess. Small bilateral pleural effusions. KUB X-Ray 04/17/19 00:00 IMPRESSION: Mild colonic distention. No evidence of mechanical obstruction. Assessment & Plan - Diagnosis (1) Partial small bowel obstruction Is this a current diagnosis for this admission?: Yes Plan: Having some third spacing post surgery, also related to the cancer, stop IV fluids and give some Lasix today. Continue with diet per hospitalist and surgical team. (2) Gallbladder cancer Is this a current diagnosis for this admission?: Yes Plan: Holding on all therapy as above - Time Time Spent with patient: 25-34 minutes
[2019-04-19] MEDS ORDERED: FUROSEMIDE INJ/PF 20 MG/2 ML SDV IV ONE (08:15)
[2019-04-19] MEDS: INSULIN LISPRO 100 UNIT/ML 3 ML VIAL SUBCUT SCH ×4 (08:25→22:09)
--- NOTE | 2019-04-19 09:01 | PDOC PROGRESS REPORT ---
Subjective Progress Note for:: 04/19/19 Subjective:: c/p abd cramping, still with drainage, wound vac leak Reason For Visit: SBO HYPOKALOEMIA Physical Exam Vital Signs: Temp Pulse Resp BP Pulse Ox 97.8 F 99 16 110/64 99 04/19/19 03:38 04/19/19 03:38 04/19/19 00:24 04/19/19 03:38 04/19/19 03:38 Intake & Output 04/18/19 04/19/19 04/20/19 06:59 06:59 06:59 Intake Total 2510 3400 Output Total 1750 3260 Balance 760 140 Weight 83.2 kg 84.3 kg General appearance: PRESENT: no acute distress Head exam: PRESENT: normocephalic Eye exam: PRESENT: EOMI Ear exam: PRESENT: normal external ear exam Mouth exam: PRESENT: moist Neck exam: PRESENT: full ROM Respiratory exam: PRESENT: other - sl decreased bs, left side Cardiovascular exam: PRESENT: RRR Pulses: PRESENT: normal radial pulses, normal femoral pulses Breast: PRESENT: Normal GI/Abdominal exam: PRESENT: soft - softly distended ascitic leak with wound vac in place, other Rectal exam: PRESENT: deferred Extremities exam: PRESENT: +1 edema Musculoskeletal exam: PRESENT: ambulatory, full ROM Neurological exam: PRESENT: alert, awake, oriented to person Psychiatric exam: PRESENT: anxious Skin exam: PRESENT: dry Results Laboratory Results: 04/18/19 11:07 04/19/19 04:23 04/18/19 04/19/19 11:07 04:23 WBC 13.6 H RBC 2.78 L Hgb 8.7 L Hct 25.3 L MCV 91 MCH 31.2 MCHC 34.4 RDW 14.8 H Plt Count 313 Seg Neutrophils % 78.7 H Sodium 133.4 L Potassium 3.9 Chloride 103 Carbon Dioxide 25 Anion Gap 5 BUN 6 L Creatinine 0.37 L Est GFR ( Amer) > 60 Glucose 91 Calcium 7.7 L Total Bilirubin 0.4 AST 29 Alkaline Phosphatase 171 H Total Protein 4.6 L Albumin 2.1 L Impressions: Chest X-Ray 04/08/19 00:00 IMPRESSION: Satisfactory position of the nasogastric tube. Small bowel obstruction copyright 2011 [employer]- All Rights Reserved Abdomen/Pelvis CT 04/14/19 00:00 IMPRESSION: Generalize fluid in the abdomen. No herniation of bowel contents. There are air-fluid collections in the anterior abdominal wall subcutaneous fat measuring 7 cm in 3 cm. Differential includes abscess. Small bilateral pleural effusions. KUB X-Ray 04/17/19 00:00 IMPRESSION: Mild colonic distention. No evidence of mechanical obstruction. Assessment & Plan - Plan Summary Plan Summary: doing better, now passing stool dayday soft diet still with ascitic leak plan abd binder lasix/albumin cont with wound vac
[2019-04-19] MEDS: LEVALBUTEROL HCL NEB 0.63 MG/3 ML AMPUL NEB PRN ×2 (09:33→16:07)
[2019-04-19] MEDS: ALBUMIN HUMAN 12.5 GM/50 ML RTUINJ IV SCH ×2 (09:34→11:03)
--- NOTE | 2019-04-19 09:34 | RADIOLOGY REPORT (SQ) ---
EXAM DESCRIPTION: CHEST SINGLE VIEW COMPLETED DATE/TIME: 04/19/2019 9:22 am REASON FOR STUDY: increased SOB COMPARISON: 04/08/2019 EXAM PARAMETERS: NUMBER OF VIEWS: One view. TECHNIQUE: Single frontal radiographic view of the chest acquired. RADIATION DOSE: NA LIMITATIONS: None. FINDINGS: LUNGS AND PLEURA: Low lung volumes with interstitial crowding. No focal airspace disease. No pleural effusion or pneumothorax. MEDIASTINUM AND HILAR STRUCTURES: No masses. Contour normal. HEART AND VASCULAR STRUCTURES: Enlarged cardiac silhouette with central vascular congestion, similar to prior. No overt edema. BONES: No acute findings. HARDWARE: Left subclavian approach chest port with catheter tip at SVC. OTHER: No other significant finding. IMPRESSION: Low lung volumes with enlarged cardiac silhouette and central vascular congestion. No o vert edema. No significant effusion. TECHNICAL DOCUMENTATION: JOB ID: [id number] 2010 [employer]- All Rights Reserved Reading location - IP/workstation name: [email or web address]
[2019-04-19] MEDS: FLUTICASONE/UMECLIDIN/VILANTER 100-62.5-25 MCG/DOSE IH SCH (11:05)
[2019-04-19] MEDS: MAG HYDROX/AL HYDROX/SIMETH SUSP 30 ML UDCUP NG PRN (13:54)
--- NOTE | 2019-04-19 15:58 | PDOC PROGRESS REPORT ---
Subjective Progress Note for:: 04/19/19 Subjective:: Patient feels better today. Still having significant ascitic fluid leak. Endorses some abdominal pain but better. Had a bowel movement today. Reason For Visit: SBO HYPOKALOEMIA Physical Exam Vital Signs: Temp Pulse Resp BP Pulse Ox 98.4 F 99 15 104/54 L 92 04/19/19 11:46 04/19/19 11:46 04/19/19 11:46 04/19/19 11:46 04/19/19 11:46 Intake & Output 04/18/19 04/19/19 04/20/19 06:59 06:59 06:59 Intake Total 2510 3400 50 Output Total 1750 3260 1500 Balance 760 140 -1450 Weight 83.2 kg 84.3 kg General appearance: PRESENT: no acute distress, cooperative Neck exam: ABSENT: JVD Respiratory exam: PRESENT: clear to auscultation christian, unlabored. ABSENT: tac hypnea, wheezes Cardiovascular exam: PRESENT: RRR, +S1, +S2. ABSENT: tachycardia GI/Abdominal exam: PRESENT: distended, firm, soft. ABSENT: guarding, rebound, rigid Neurological exam: PRESENT: alert, awake Results Laboratory Results: 04/18/19 11:07 04/19/19 04:23 04/19/19 04:23 Sodium 133.4 L Potassium 3.9 Chloride 103 Carbon Dioxide 25 Anion Gap 5 BUN 6 L Creatinine 0.37 L Est GFR ( Amer) > 60 Glucose 91 Calcium 7.7 L Total Bilirubin 0.4 AST 29 Alkaline Phosphatase 171 H Total Protein 4.6 L Albumin 2.1 L Impressions: Abdomen/Pelvis CT 04/14/19 00:00 IMPRESSION: Generalize fluid in the abdomen. No herniation of bowel contents. There are air-fluid collections in the anterior abdominal wall subcutaneous fat measuring 7 cm in 3 cm. Differential includes abscess. Small bilateral pleural effusions. KUB X-Ray 04/17/19 00:00 IMPRESSION: Mild colonic distention. No evidence of mechanical obstruction. Chest X-Ray 04/19/19 08:43 IMPRESSION: Low lung volumes with enlarged cardiac silhouette and central vascular congestion. No overt edema. No significant effusion. Assessment and Plan - Diagnosis (1) Partial small bowel obstruction Is this a current diagnosis for this admission?: Yes Plan: Malignant SBO. Status post exploratory laparotomy and enteroenterostomy on 04/09/2019. On 04/14/2019 had ascitic fluid started leaking from surgical wound and a wound VAC was placed Tolerating mechanical soft Surgery following and planning for placement of abdominal bilateral to help with ascitic fluid leak We will continue on meropenem as purulence was noted at the site of surgical wound. Continue to monitor CBC. (2) Hyponatremia Is this a current diagnosis for this admission?: Yes Plan: Improving with normal saline. However I will discontinue normal saline at this time given third spacing. Check BMP again tomorrow (3) Malignant ascites Is this a current diagnosis for this admission?: Yes Plan: Patient has a lot of third spacing with malignant ascites from her gallbladder cancer. Third spacing secondary to significant hypoalbuminemia. Will give some albumin and Lasix to help with third spacing. (4) Left leg swelling Is this a current diagnosis for this admission?: Yes Plan: Ultrasound negative for DVT. Continue leg elevation. Compression stockings. Supportive measures. Resume Lasix. (5) COPD (chronic obstructive pulmonary disease) Qualifiers: COPD type: unspecified COPD Qualified Code(s): J44.9 - Chronic obstructive pulmonary disease, unspecified Is this a current diagnosis for this admission?: Yes Plan: Does not seem to be acutely exacerbated. PRN nebs. (6) Gallbladder cancer Is this a current diagnosis for this admission?: Yes Plan: Chemotherapy on hold. Oncology on board. Recommendations noted. (7) Anemia Qualifiers: Other causes of anemia: chronic disease, other Is this a current diagnosis for this admission?: Yes - Time Time Spent with patient: 15-24 minutes
[2019-04-19 16:37] LABS: HEMATOCRIT 24.3 % (36.0-47.0); HEMOGLOBIN 8.4 g/dL (12.0-15.5); MEAN CORPUSCULAR HEMOGLOBIN 31.5 pg (27.0-33.4); MEAN CORPUSCULAR HGB CONC 34.7 g/dL (32.0-36.0); MEAN CORPUSCULAR VOLUME 91 fl (80-97); PLATELET COUNT 302 10^3/uL (150-450); RED BLOOD COUNT 2.68 10^6/uL (3.72-5.28); RED CELL DISTRIBUTION WIDTH 15.4 % (11.5-14.0); WHITE BLOOD COUNT 9.5 10^3/uL (4.0-10.5)
[2019-04-19 17:03] LABS: ABSOLUTE MONOCYTES # (MANUAL) 0.7 10^3/uL (0.1-1.4); BAND NEUTROPHILS % (MANUAL) 1 % (3-5); BASOPHILS % (MANUAL) 0 % (0-2); EOSINOPHILS % (MANUAL) 1 % (0-6); LYMPHOCYTES % (MANUAL) 11 % (13-45); MONOCYTES % (MANUAL) 7 % (3-13); OVALOCYTES SLIGHT; PLATELET COMMENT ADEQUATE; POIKILOCYTOSIS SLIGHT; SEGMENTED NEUTROPHILS % (MAN) 80 % (42-78); TOTAL CELLS COUNTED 100
[2019-04-19] MEDS ORDERED: MEROPENEM 1 GM VIAL IV SCH (22:00)
[2019-04-20] MEDS: METOCLOPRAMIDE HCL INJ/PF 10 MG/2 ML SDV IV SCH ×5 (00:07→23:13)
[2019-04-20] MEDS: MAG HYDROX/AL HYDROX/SIMETH SUSP 30 ML UDCUP NG PRN (00:07)
[2019-04-20] MEDS: LORAZEPAM INJ 2 MG/1 ML VIAL IV PRN ×3 (00:11→23:18)
[2019-04-20] MEDS: HEPARIN SOD (PORCINE) 5,000 UNIT/ML 1 ML VIAL SUBCUT SCH ×3 (05:55→21:35)
[2019-04-20] MEDS: MEROPENEM 1 GM in NORMAL SALINE 50 ML IV SCH ×3 (05:56→21:31)
[2019-04-20] MEDS: HYDROMORPHONE HCL INJ/PF 2 MG/ML AMPULE IV PRN ×4 (05:59→23:12)
[2019-04-20 06:12] LABS: ABSOLUTE BASOPHILS # (AUTO) 0.1 10^3/uL (0.0-0.2); ABSOLUTE EOSINOPHILS # (AUTO) 0.1 10^3/uL (0.0-0.6); ABSOLUTE LYMPHOCYTES (AUTO) 1.2 10^3/uL (0.5-4.7); ABSOLUTE MONOCYTES (AUTO) 0.8 10^3/uL (0.1-1.4); ABSOLUTE NEUT (AUTO) 5.6 10^3/uL (1.7-8.2); EOSINOPHILS % (AUTO) 1.2 % (0-6); HEMATOCRIT 23.6 % (36.0-47.0); HEMOGLOBIN 8.1 g/dL (12.0-15.5); LYMPHOCYTES % (AUTO) 15.6 % (13-45); MEAN CORPUSCULAR HEMOGLOBIN 30.8 pg (27.0-33.4); MEAN CORPUSCULAR HGB CONC 34.2 g/dL (32.0-36.0); MEAN CORPUSCULAR VOLUME 90 fl (80-97); MONOCYTES % (AUTO) 10.8 % (3-13); PLATELET COUNT 285 10^3/uL (150-450); RED BLOOD COUNT 2.61 10^6/uL (3.72-5.28); RED CELL DISTRIBUTION WIDTH 15.6 % (11.5-14.0); SEGMENTED NEUTROPHILS % (AUTO) 71.4 % (42-78); TOTAL CELLS COUNTED % (AUTO) 100 %; WHITE BLOOD COUNT 7.9 10^3/uL (4.0-10.5)
[2019-04-20 06:27] LABS: ALBUMIN 2.2 g/dL (3.5-5.0); ALKALINE PHOSPHATASE 157 U/L (38-126); ASPARTATE AMINO TRANSFERASE 30 U/L (14-36); BILIRUBIN,DIRECT 0.3 mg/dL (0.0-0.4); BILIRUBIN,TOTAL 0.4 mg/dL (0.2-1.3); BLOOD UREA NITROGEN 4 mg/dL (7-20); CALCIUM 7.9 mg/dL (8.4-10.2); CARBON DIOXIDE 29 mmol/L (22-30); CHLORIDE 102 mmol/L (98-107); GLUCOSE 98 mg/dL (75-110); POTASSIUM 3.4 mmol/L (3.6-5.0); TOTAL PROTEIN 4.7 g/dL (6.3-8.2)
[2019-04-20 06:37] LABS: ANION GAP 4 (5-19)
[2019-04-20] MEDS: INSULIN LISPRO 100 UNIT/ML 3 ML VIAL SUBCUT SCH ×4 (08:09→21:28)
[2019-04-20] MEDS: LEVALBUTEROL HCL NEB 0.63 MG/3 ML AMPUL NEB PRN ×2 (08:20→12:50)
[2019-04-20] MEDS: IPRATROPIUM BROMIDE 0.02% NEB 0.5 MG/2.5 ML AMPUL NEB PRN (08:20)
[2019-04-20] MEDS: ALBUMIN HUMAN 12.5 GM/50 ML RTUINJ IV SCH ×3 (08:21→11:08)
[2019-04-20] MEDS: FLUTICASONE/UMECLIDIN/VILANTER 100-62.5-25 MCG/DOSE IH SCH (09:10)
[2019-04-20] MEDS: MORPHINE SULFATE 10 MG/ML INJ IV PRN ×2 (09:22→21:00)
[2019-04-20] MEDS ORDERED: LIDOCAINE 1% INJ-PF (10 MG/ML) 30 ML SDV ONE (09:27)
[2019-04-20] MEDS: FUROSEMIDE INJ/PF 20 MG/2 ML SDV IV SCH (09:36)
[2019-04-20] MEDS ORDERED: POTASSIUM CHLORIDE 10 MEQ TABLET.ER PO SCH (10:00)
--- NOTE | 2019-04-20 10:25 | PDOC PROGRESS REPORT ---
Subjective Progress Note for:: 04/20/19 Subjective:: Patient was able to tolerate soft diet yesterday without any nausea or vomiting. Last bowel movement was yesterday morning. States she has not really passed gas today. Otherwise denies any worsening in her abdominal pain. Reason For Visit: SBO HYPOKALOEMIA Physical Exam Vital Signs: Temp Pulse Resp BP Pulse Ox 97.5 F 95 16 105/64 96 04/20/19 08:18 04/20/19 08:20 04/20/19 08:20 04/20/19 08:18 04/20/19 08:20 Intake & Output 04/19/19 04/20/19 04/21/19 06:59 06:59 06:59 Intake Total 3400 350 50 Output Total 3260 2600 Balance 140 -2250 50 Weight 84.3 kg 82.3 kg General appearance: PRESENT: no acute distress, cooperative Neck exam: ABSENT: JVD Respiratory exam: PRESENT: clear to auscultation christian, unlabored. ABSENT: tachypnea, wheezes Cardiovascular exam: PRESENT: RRR, +S1, +S2. ABSENT: tachycardia GI/Abdominal exam: PRESENT: ascites, distended, firm, normal bowel sounds, tenderness - Mild, other - Surgical incision site wound VAC. ABSENT: diminished bowel sounds, guarding, rebound, rigid Musculoskeletal exam: PRESENT: ambulatory Neurological exam: PRESENT: alert, awake, oriented to person, oriented to place, oriented to time, other - Tremors Results Laboratory Results: 04/20/19 05:44 04/20/19 05:44 04/19/19 04/20/19 04/20/19 16:23 05:44 05:44 WBC 9.5 7.9 RBC 2.68 L 2.61 L Hgb 8.4 L 8.1 L Hct 24.3 L 23.6 L MCV 91 90 MCH 31.5 30.8 MCHC 34.7 34.2 RDW 15.4 H 15.6 H Plt Count 302 285 Seg Neutrophils % Not Reportable 71.4 Sodium 135.3 L Potassium 3.4 L Chloride 102 Carbon Dioxide 29 Anion Gap 4 L BUN 4 L Creatinine 0.31 L Est GFR ( Amer) > 60 Glucose 98 Calcium 7.9 L Magnesium 2.2 Total Bilirubin 0.4 AST 30 Alkaline Phosphatase 157 H Total Protein 4.7 L Albumin 2.2 L Impressions: Abdomen/Pelvis CT 04/14/19 00:00 IMPRESSION: Generalize fluid in the abdomen. No herniation of bowel contents. There are air-fluid collections in the anterior abdominal wall subcutaneous fat measuring 7 cm in 3 cm. Differential includes abscess. Small bilateral pleural effusions. KUB X-Ray 04/17/19 00:00 IMPRESSION: Mild colonic distention. No evidence of mechanical obstruction. Chest X-Ray 04/19/19 08:43 IMPRESSION: Low lung volumes with enlarged cardiac silhouette and central vascular congestion. No overt edema. No significant effusion. Assessment and Plan - Diagnosis (1) Partial small bowel obstruction Is this a current diagnosis for this admission?: Yes Plan: Malignant SBO. Status post exploratory laparotomy and enteroenterostomy on 04/09/2019. On 04/14/2019 had ascitic fluid started leaking from surgical wound and a wound VAC was placed Diet escalated to regular consistency Surgery following and planning for placement of abdominal bilateral to help with ascitic fluid leak We will continue on meropenem as purulence was noted at the site of surgical wound. Surgicalist to evaluate surgical wound. Leukocytosis has resolved. (2) Hyponatremia Is this a current diagnosis for this admission?: Yes Plan: Sodium holding steady at this time off IV fluids. (3) Malignant ascites Is this a current diagnosis for this admission?: Yes Plan: Patient has a lot of third spacing with malignant ascites from her gallbladder cancer. Third spacing secondary to significant hypoalbuminemia likely worsening with albumin loss from ascitic fluid leak. Will give some more albumin today 37.5 g. Continue Lasix. (4) Left leg swelling Is this a current diagnosis for this admission?: Yes Plan: Ultrasound negative for DVT. Continue leg elevation. Compression stockings. Supportive measures. Resume Lasix. (5) COPD (chronic obstructive pulmonary disease) Qualifiers: COPD type: unspecified COPD Qualified Code(s): J44.9 - Chronic obstructive pulmonary disease, unspecified Is this a current diagnosis for this admission?: Yes Plan: Does not seem to be acutely exacerbated. PRN nebs. (6) Gallbladder cancer Is this a current diagnosis for this admission?: Yes Plan: Chemotherapy on hold. Oncology on board. Recommendations noted. (7) Anemia Qualifiers: Other causes of anemia: chronic disease, other Is this a current diagnosis for this admission?: Yes Plan: Likely secondary to chronic disease. Denies any source of external bleeding. Monitor H&H. Supportive transfusions. - Time Time Spent with patient: Less than 15 minutes
--- NOTE | 2019-04-20 11:58 | PDOC PROGRESS REPORT ---
Subjective Progress Note for:: 04/20/19 Subjective:: No acute events overnight, patient n.p.o. because she is going to be taken down for stitch placement in the abdomen Reason For Visit: SBO HYPOKALOEMIA Physical Exam Vital Signs: Temp Pulse Resp BP Pulse Ox 97.5 F 95 20 105/64 96 04/20/19 11:15 04/20/19 11:15 04/20/19 11:15 04/20/19 11:15 04/20/19 11:15 Intake & Output 04/19/19 04/20/19 04/21/19 06:59 06:59 06:59 Intake Total 3400 350 100 Output Total 3260 2600 Balance 140 -2250 100 Weight 84.3 kg 82.3 kg General appearance: PRESENT: no acute distress, well-developed, well-nourished Head exam: PRESENT: atraumatic, normocephalic Eye exam: PRESENT: conjunctiva pink, EOMI, PERRLA. ABSENT: scleral icterus Ear exam: PRESENT: normal external ear exam Mouth exam: PRESENT: moist, tongue midline Neck exam: ABSENT: carotid bruit, JVD, lymphadenopathy, thyromegaly Respiratory exam: PRESENT: clear to auscultation christian. ABSENT: rales, rhonchi, wheezes Cardiovascular exam: PRESENT: RRR. ABSENT: diastolic murmur, rubs, systolic murmur Pulses: PRESENT: normal dorsalis pedis pul Vascular exam: PRESENT: normal capillary refill GI/Abdominal exam: PRESENT: normal bowel sounds, soft. ABSENT: distended, guarding, mass, organolmegaly, rebound, tenderness Rectal exam: PRESENT: deferred Extremities exam: PRESENT: full ROM. ABSENT: calf tenderness, clubbing, pedal edema Neurological exam: PRESENT: alert, awake, oriented to person, oriented to place, oriented to time, oriented to situation, CN II-XII grossly intact. ABSENT: m otor sensory deficit Psychiatric exam: PRESENT: appropriate affect, normal mood. ABSENT: homicidal ideation, suicidal ideation Skin exam: PRESENT: dry, intact, warm. ABSENT: cyanosis, rash Results Laboratory Results: 04/20/19 05:44 04/20/19 05:44 04/19/19 04/20/19 04/20/19 16:23 05:44 05:44 WBC 9.5 7.9 RBC 2.68 L 2.61 L Hgb 8.4 L 8.1 L Hct 24.3 L 23.6 L MCV 91 90 MCH 31.5 30.8 MCHC 34.7 34.2 RDW 15.4 H 15.6 H Plt Count 302 285 Seg Neutrophils % Not Reportable 71.4 Sodium 135.3 L Potassium 3.4 L Chloride 102 Carbon Dioxide 29 Anion Gap 4 L BUN 4 L Creatinine 0.31 L Est GFR ( Amer) > 60 Glucose 98 Calcium 7.9 L Magnesium 2.2 Total Bilirubin 0.4 AST 30 Alkaline Phosphatase 157 H Total Protein 4.7 L Albumin 2.2 L Impressions: Abdomen/Pelvis CT 04/14/19 00:00 IMPRESSION: Generalize fluid in the abdomen. No herniation of bowel contents. There are air-fluid collections in the anterior abdominal wall subcutaneous fat measuring 7 cm in 3 cm. Differential includes abscess. Small bilateral pleural effusions. KUB X-Ray 04/17/19 00:00 IMPRESSION: Mild colonic distention. No evidence of mechanical obstruction. Chest X-Ray 04/19/19 08:43 IMPRESSION: Low lung volumes with enlarged cardiac silhouette and central vascular congestion. No overt edema. No significant effusion. Assessment & Plan - Diagnosis (1) Partial small bowel obstruction Is this a current diagnosis for this admission?: Yes Plan: Improved, n.p.o. for now for procedure upcoming but seems to be tolerating p.o. (2) Gallbladder cancer Is this a current diagnosis for this admission?: Yes Plan: All treatment on hold for now, will be holding treatment for 2 to 3 weeks post discharge to see how patient does at home - Time Time Spent with patient: 15-24 minutes
[2019-04-20] MEDS ORDERED: KETOROLAC TROMETHAMINE 60 MG/2 ML SDV ONE (12:50)
[2019-04-20] MEDS ORDERED: PROPOFOL INJ 200 MG/20 ML VIAL IV ONE (12:50)
[2019-04-20] MEDS ORDERED: ONDANSETRON HCL INJ/PF 4 MG/2 ML SDV ONE (12:50)
[2019-04-20] MEDS ORDERED: FENTANYL CITRATE INJ/PF 100 MCG/2 ML AMPUL ONE (12:50)
[2019-04-20] MEDS ORDERED: DEXAMETHASONE SOD PHOSPHATE INJ 4 MG/1 ML VIAL ONE (12:50)
[2019-04-20] MEDS ORDERED: LIDOCAINE 2% INJ-PF (20 MG/ML) 10 ML AMPUL ONE (12:50)
[2019-04-20] MEDS ORDERED: MIDAZOLAM 2 MG/2 ML INJ ONE (12:50)
[2019-04-20] MEDS ORDERED: HYDROMORPHONE HCL INJ/PF 2 MG/ML AMPULE ONE (18:38)
[2019-04-20] MEDS ORDERED: MEPERIDINE HCL/PF INJ 25 MG/1 ML DISP.SYRIN IV PRN (19:31)
[2019-04-20] MEDS ORDERED: OXYCODONE-ACETAMINOPHEN 5-325 MG TABLET PO PRN ×2 (19:31)
[2019-04-20] MEDS ORDERED: FENTANYL CITRATE INJ/PF 100 MCG/2 ML AMPUL IV PRN ×3 (19:31)
[2019-04-20] MEDS ORDERED: DIPHENHYDRAMINE HCL 50 MG/ML VIAL IV PRN (19:31)
[2019-04-20] MEDS ORDERED: MORPHINE SULFATE 10 MG/ML INJ IV PRN (19:31)
[2019-04-20] MEDS ORDERED: PROMETHAZINE HCL INJ 25 MG/1 ML VIAL IV PRN ×2 (19:31)
--- NOTE | 2019-04-20 19:33 | Operative Report ---
Nonrecallable Operative Report DATE OF SURGERY: 04/20/19 PREOPERATIVE DIAGNOSIS: Metastatic gallbladder cancer status post small bowel bypass wound dehiscence POSTOPERATIVE DIAGNOSIS: Metastatic gallbladder cancer status post small bowel bypass wound dehiscence OPERATION: Abdominal irrigation and fascial closure. SURGEON: MARLENI DESHPANDE ANESTHESIA: GA TISSUE REMOVED OR ALTERED: None COMPLICATIONS: None ESTIMATED BLOOD LOSS: 200 cc INTRAOPERATIVE FINDINGS: Fascial dehiscence secondary to fascial disruption. 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 She presented initially with a bowel obstruction and underwent an exploratory laparotomy with enteroenterostomy to bypass the bowel obstruction. Subsequent to that she has had return of bowel function now is however is had a persistent ascitic leak. Examination of the wound today reviewed revealed a fascial dehiscence. She was therefore brought to the operating for this procedure. After appropriate timeout and site verification the abdomen was prepped and draped in usual sterile fashion. The previous skin aure were removed. Upon removing the aure we noticed a complete fascial disruption secondary to the Vicryl sutures that were previously placed having torn through the fascia. The sutures were removed with a suture scissor. And the omentum that was adhesed up to the sides of the abdominal fascia was bluntly dissected away with finger dissection. We then gained access to the abdominal cavity there was some bloody ascites that was noted it was suctioned free the abdominal cavity was then irrigated with sterile saline. Once we gently mobilized the abdominal viscera away from the anterior abdominal fascia we used a piece of Vicryl mesh folded in half and placed underneath the abdominal fascia to buttress the wound. We then closed the midline fascia with interrupted placed #2 Polysorb sutures placed in a Smead Morales fashion. This was interspersed with 3 retention sutures using #2 nylon. Once the wound was closed we placed wound VAC sponge between the retention sutures and then placed a wound VAC on the wound. We then placed an abdominal binder which completed the procedure. The patient was then awakened in the operating room extubated transferred recovery in stable condition. Estimated blood loss was 200 cc sponge and needle counts were correct x2
[2019-04-20] MEDS: HYDROMORPHONE HCL INJ/PF 2 MG/ML AMPULE ONE ×2 (19:50→20:00)
[2019-04-20] MEDS: POTASSI CL 20 MEQ/D5-1/2NS 1L 1,000 ML IV PRN (21:02)
[2019-04-21] MEDS: HYDROMORPHONE HCL INJ/PF 2 MG/ML AMPULE IV PRN ×5 (04:37→22:29)
[2019-04-21 05:24] LABS: ABSOLUTE LYMPHOCYTES (AUTO) 0.8 10^3/uL (0.5-4.7); ABSOLUTE MONOCYTES (AUTO) 0.7 10^3/uL (0.1-1.4); ABSOLUTE NEUT (AUTO) 10.5 10^3/uL (1.7-8.2); BASOPHILS % (AUTO) 0.3 % (0-2); HEMATOCRIT 23.6 % (36.0-47.0); LYMPHOCYTES % (AUTO) 6.6 % (13-45); MEAN CORPUSCULAR HEMOGLOBIN 30.6 pg (27.0-33.4); MEAN CORPUSCULAR HGB CONC 33.3 g/dL (32.0-36.0); MEAN CORPUSCULAR VOLUME 92 fl (80-97); MONOCYTES % (AUTO) 5.7 % (3-13); PLATELET COUNT 291 10^3/uL (150-450); RED BLOOD COUNT 2.56 10^6/uL (3.72-5.28); RED CELL DISTRIBUTION WIDTH 15.6 % (11.5-14.0); SEGMENTED NEUTROPHILS % (AUTO) 87.4 % (42-78); TOTAL CELLS COUNTED % (AUTO) 100 %
[2019-04-21] MEDS: MEROPENEM 1 GM in NORMAL SALINE 50 ML IV SCH (05:34)
[2019-04-21 05:35] LABS: ALBUMIN 2.6 g/dL (3.5-5.0); ALKALINE PHOSPHATASE 152 U/L (38-126); ASPARTATE AMINO TRANSFERASE 27 U/L (14-36); BILIRUBIN,DIRECT 0.1 mg/dL (0.0-0.4); BILIRUBIN,TOTAL 0.4 mg/dL (0.2-1.3); BLOOD UREA NITROGEN 5 mg/dL (7-20); CALCIUM 8.3 mg/dL (8.4-10.2); GLUCOSE 119 mg/dL (75-110); TOTAL PROTEIN 4.9 g/dL (6.3-8.2)
[2019-04-21] MEDS: METOCLOPRAMIDE HCL INJ/PF 10 MG/2 ML SDV IV SCH ×3 (05:39→17:07)
[2019-04-21 05:40] LABS: CARBON DIOXIDE 29 mmol/L (22-30); CHLORIDE 105 mmol/L (98-107)
[2019-04-21 05:43] LABS: HEMOGLOBIN 7.8 g/dL (12.0-15.5)
[2019-04-21 05:52] LABS: ANION GAP 2 (5-19); POTASSIUM 4.7 mmol/L (3.6-5.0)
[2019-04-21] MEDS ORDERED: NORMAL SALINE 250 ML IV PRN (06:36)
[2019-04-21] MEDS: MORPHINE SULFATE 10 MG/ML INJ IV PRN (07:17)
[2019-04-21] MEDS: HEPARIN SOD (PORCINE) 5,000 UNIT/ML 1 ML VIAL SUBCUT SCH ×3 (07:30→22:29)
--- NOTE | 2019-04-21 08:02 | PDOC PROGRESS REPORT ---
Subjective Progress Note for:: 04/21/19 Subjective:: c/o incisional pain this morning taking po liquids Reason For Visit: SBO HYPOKALOEMIA Physical Exam Vital Signs: Temp Pulse Resp BP Pulse Ox 97.6 F 99 16 116/70 97 04/21/19 07:28 04/21/19 07:28 04/21/19 07:28 04/21/19 07:28 04/21/19 07:28 Intake & Output 04/20/19 04/21/19 04/22/19 06:59 06:59 06:59 Intake Total 350 1610 Output Total 2600 4550 Balance -2250 -2940 Weight 82.3 kg 83 kg General appearance: PRESENT: mild distress Head exam: PRESENT: normocephalic Eye exam: PRESENT: EOMI Ear exam: PRESENT: normal external ear exam Mouth exam: PRESENT: moist Neck exam: PRESENT: full ROM Respiratory exam: PRESENT: clear to auscultation christian Cardiovascular exam: PRESENT: RRR Pulses: PRESENT: normal radial pulses, normal femoral pulses Breast: PRESENT: Normal GI/Abdominal exam: PRESENT: other - wound vac in place min op Rectal exam: PRESENT: deferred Extremities exam: PRESENT: full ROM Musculoskeletal exam: PRESENT: full ROM Neurological exam: PRESENT: alert, awake, oriented to person, oriented to place Psychiatric exam: PRESENT: appropriate affect Skin exam: PRESENT: dry Results Laboratory Results: 04/21/19 04:36 04/21/19 04:36 04/21/19 04/21/19 04:36 04:36 WBC 12.0 H RBC 2.56 L Hgb 7.8 L Hct 23.6 L MCV 92 MCH 30.6 MCHC 33.3 RDW 15.6 H Plt Count 291 Seg Neutrophils % 87.4 H Sodium 136.1 L Potassium 4.7 D Chloride 105 Carbon Dioxide 29 Anion Gap 2 L BUN 5 L Creatinine 0.29 L Est GFR ( Amer) > 60 Glucose 119 H Calcium 8.3 L Magnesium 2.3 Total Bilirubin 0.4 AST 27 Alkaline Phosphatase 152 H Total Protein 4.9 L Albumin 2.6 L 04/20/19 01:30 Abdomen - Incision Site Gram Stain - Final Impressions: Abdomen/Pelvis CT 04/14/19 00:00 IMPRESSION: Generalize fluid in the abdomen. No herniation of bowel contents. There are air-fluid collections in the anterior abdominal wall subcutaneous fat measuring 7 cm in 3 cm. Differential includes abscess. Small bilateral pleural effusions. KUB X-Ray 04/17/19 00:00 IMPRESSION: Mild colonic distention. No evidence of mechanical obstruction. Chest X-Ray 04/19/19 08:43 IMPRESSION: Low lung volumes with enlarged cardiac silhouette and central vascular congestion. No overt edema. No significant effusion. Assessment & Plan - Plan Summary Plan Summary: s/p abdominal wound closure for wound dehiscence wound vac in place with min op pt c/o incisional pain this am however able to dayday liquids plan- cont on clears today will advance diet when she start passing flatus cont increase activity out of bed to chair add toradol for pain relief.
[2019-04-21] MEDS: INSULIN LISPRO 100 UNIT/ML 3 ML VIAL SUBCUT SCH ×4 (08:06→23:37)
[2019-04-21] MEDS: FLUTICASONE/UMECLIDIN/VILANTER 100-62.5-25 MCG/DOSE IH SCH (09:02)
[2019-04-21] MEDS: KETOROLAC TROMETHAMINE INJ/PF 30 MG/1 ML SDV IV SCH ×3 (09:07→23:37)
[2019-04-21] MEDS: FUROSEMIDE INJ/PF 20 MG/2 ML SDV IV SCH (09:07)
--- NOTE | 2019-04-21 10:11 | PDOC PROGRESS REPORT ---
Subjective Progress Note for:: 04/21/19 Subjective:: Patient was taken to the OR yesterday for abdominal irrigation and fascial suture closure. Today patient c/o not passing flatus and no BMs yesterday. Having some abdominal pain today. Reason For Visit: SBO HYPOKALOEMIA Physical Exam Vital Signs: Temp Pulse Resp BP Pulse Ox 97.6 F 99 16 116/70 97 04/21/19 07:28 04/21/19 07:28 04/21/19 07:28 04/21/19 07:28 04/21/19 07:28 Intake & Output 04/20/19 04/21/19 04/22/19 06:59 06:59 06:59 Intake Total 350 1610 Output Total 2600 4550 Balance -2250 -2940 Weight 82.3 kg 83 kg General appearance: PRESENT: no acute distress, cooperative Neck exam: ABSENT: JVD Respiratory exam: PRESENT: clear to auscultation christian, unlabored. ABSENT: tachypnea, wheezes Cardiovascular exam: PRESENT: +S1, +S2 GI/Abdominal exam: PRESENT: distended, soft, tenderness, other - Abdominal binder in place. ABSENT: firm, guarding, rebound, rigid Extremities exam: PRESENT: pedal edema Neurological exam: PRESENT: alert, awake, oriented to person, oriented to place, oriented to time, oriented to situation Results Laboratory Results: 04/21/19 04:36 04/21/19 04:36 04/21/19 04/21/19 04/21/19 04:36 04:36 07:35 WBC 12.0 H RBC 2.56 L Hgb 7.8 L Hct 23.6 L MCV 92 MCH 30.6 MCHC 33.3 RDW 15.6 H Plt Count 291 Seg Neutrophils % 87.4 H Sodium 136.1 L Potassium 4.7 D Chloride 105 Carbon Dioxide 29 Anion Gap 2 L BUN 5 L Creatinine 0.29 L Est GFR ( Amer) > 60 Glucose 119 H Calcium 8.3 L Magnesium 2.3 Total Bilirubin 0.4 AST 27 Alkaline Phosphatase 152 H Total Protein 4.9 L Albumin 2.6 L Blood Type A POSITIVE Antibody Screen NEGATIVE 04/20/19 01:30 Abdomen - Incision Site Gram Stain - Final Impressions: Abdomen/Pelvis CT 04/14/19 00:00 IMPRESSION: Generalize fluid in the abdomen. No herniation of bowel contents. There are air-fluid collections in the anterior abdominal wall subcutaneous fat measuring 7 cm in 3 cm. Differential includes abscess. Small bilateral pleural effusions. KUB X-Ray 04/17/19 00:00 IMPRESSION: Mild colonic distention. No evidence of mechanical obstruction. Chest X-Ray 04/19/19 08:43 IMPRESSION: Low lung volumes with enlarged cardiac silhouette and central vascular congestion. No overt edema. No significant effusion. Assessment and Plan - Diagnosis (1) Partial small bowel obstruction Is this a current diagnosis for this admission?: Yes Plan: Malignant SBO. 04/09/2019: Exploratory laparotomy and enteroenterostomy 04/14/2019: had ascitic fluid started leaking from surgical wound and a wound VAC was placed 04/20/2019: Taken to the OR for abdominal irrigation and fascial closure done for wound dehiscence. Abdominal binder placed. On clear liquids Wound culture on 04/20/2019 was a very superficial swab at incision site. As such the result is not reflective of true infection. Will discontinue meropenem as no concern for surgical wound infection at this time after discussing with surgicalist. Pain control. Currently on Dilaudid and IV Toradol. Add docusate-senna (2) Hyponatremia Is this a current diagnosis for this admission?: Yes Plan: Sodium improving at this time off IV fluids. (3) Malignant ascites Is this a current diagnosis for this admission?: Yes Plan: Patient has a lot of third spacing with malignant ascites due to hypoalbuminemia from her gallbladder cancer. Received 37.5 g of albumin yesterday and some Lasix. (4) Left leg swelling Is this a current diagnosis for this admission?: Yes Plan: Ultrasound negative for DVT. Continue leg elevation. Compression stockings. Supportive measures. (5) COPD (chronic obstructive pulmonary disease) Qualifiers: COPD type: unspecified COPD Qualified Code(s): J44.9 - Chronic obstructive pulmonary disease, unspecified Is this a current diagnosis for this admission?: Yes Plan: Does not seem to be acutely exacerbated. PRN nebs. (6) Gallbladder cancer Is this a current diagnosis for this admission?: Yes Plan: Chemotherapy on hold. Oncology on board. Recommendations noted. Pain control and bowel regimen. (7) Anemia Qualifiers: Other causes of anemia: chronic disease, other Is this a current diagnosis for this admission?: Yes Plan: Likely secondary to chronic disease. Acute drop due to acute blood loss from operation. Monitor H&H. Receiving 2 units of PRBCs today. - Time Time Spent with patient: 15-24 minutes
[2019-04-21] MEDS: SENNOSIDES/DOCUSATE 8.6-50 MG 1 EACH TABLET PO SCH ×2 (10:32→17:07)
[2019-04-21] MEDS: MAG HYDROX/AL HYDROX/SIMETH SUSP 30 ML UDCUP NG PRN ×2 (10:32→23:38)
[2019-04-21] MEDS: IPRATROPIUM BROMIDE 0.02% NEB 0.5 MG/2.5 ML AMPUL NEB PRN (10:36)
[2019-04-21] MEDS: LEVALBUTEROL HCL NEB 1.25 MG/3 ML AMPUL NEB PRN (10:36)
[2019-04-21] MEDS: LORAZEPAM INJ 2 MG/1 ML VIAL IV PRN (17:07)
[2019-04-21 17:54] LABS: ABSOLUTE BASOPHILS # (AUTO) 0.1 10^3/uL (0.0-0.2); ABSOLUTE EOSINOPHILS # (AUTO) 0.1 10^3/uL (0.0-0.6); ABSOLUTE LYMPHOCYTES (AUTO) 1.8 10^3/uL (0.5-4.7); ABSOLUTE MONOCYTES (AUTO) 1.8 10^3/uL (0.1-1.4); ABSOLUTE NEUT (AUTO) 14.2 10^3/uL (1.7-8.2); BASOPHILS % (AUTO) 0.4 % (0-2); EOSINOPHILS % (AUTO) 0.4 % (0-6); HEMATOCRIT 30.1 % (36.0-47.0); LYMPHOCYTES % (AUTO) 9.9 % (13-45); MEAN CORPUSCULAR HEMOGLOBIN 30.9 pg (27.0-33.4); MEAN CORPUSCULAR HGB CONC 33.5 g/dL (32.0-36.0); MEAN CORPUSCULAR VOLUME 92 fl (80-97); MONOCYTES % (AUTO) 10.1 % (3-13); PLATELET COUNT 314 10^3/uL (150-450); RED BLOOD COUNT 3.26 10^6/uL (3.72-5.28); RED CELL DISTRIBUTION WIDTH 16.3 % (11.5-14.0); SEGMENTED NEUTROPHILS % (AUTO) 79.2 % (42-78); TOTAL CELLS COUNTED % (AUTO) 100 %; WHITE BLOOD COUNT 17.9 10^3/uL (4.0-10.5)
[2019-04-21 17:55] LABS: HEMOGLOBIN 10.1 g/dL (12.0-15.5)
[2019-04-22] MEDS: LEVALBUTEROL HCL NEB 1.25 MG/3 ML AMPUL NEB PRN ×2 (00:19→20:46)
[2019-04-22] MEDS: IPRATROPIUM BROMIDE 0.02% NEB 0.5 MG/2.5 ML AMPUL NEB PRN (00:19)
[2019-04-22] MEDS: METOCLOPRAMIDE HCL INJ/PF 10 MG/2 ML SDV IV SCH ×3 (00:50→15:43)
[2019-04-22] MEDS: MORPHINE SULFATE 10 MG/ML INJ IV PRN ×2 (00:51→05:05)
[2019-04-22] MEDS: HYDROMORPHONE HCL INJ/PF 2 MG/ML AMPULE IV PRN ×4 (02:36→20:51)
[2019-04-22] MEDS: KETOROLAC TROMETHAMINE INJ/PF 30 MG/1 ML SDV IV SCH ×4 (02:40→20:44)
[2019-04-22] MEDS: HEPARIN SOD (PORCINE) 5,000 UNIT/ML 1 ML VIAL SUBCUT SCH ×3 (05:05→21:39)
[2019-04-22 05:39] LABS: HEMATOCRIT 28.9 % (36.0-47.0); HEMOGLOBIN 9.8 g/dL (12.0-15.5); MEAN CORPUSCULAR HEMOGLOBIN 31.2 pg (27.0-33.4); MEAN CORPUSCULAR HGB CONC 33.9 g/dL (32.0-36.0); MEAN CORPUSCULAR VOLUME 92 fl (80-97); PLATELET COUNT 281 10^3/uL (150-450); RED BLOOD COUNT 3.14 10^6/uL (3.72-5.28); RED CELL DISTRIBUTION WIDTH 16.6 % (11.5-14.0); WHITE BLOOD COUNT 14.1 10^3/uL (4.0-10.5)
[2019-04-22 06:01] LABS: ALBUMIN 2.5 g/dL (3.5-5.0); ALKALINE PHOSPHATASE 169 U/L (38-126); ANION GAP 5 (5-19); ASPARTATE AMINO TRANSFERASE 31 U/L (14-36); BILIRUBIN,DIRECT 0.3 mg/dL (0.0-0.4); BILIRUBIN,TOTAL 0.9 mg/dL (0.2-1.3); BLOOD UREA NITROGEN 10 mg/dL (7-20); CALCIUM 8.2 mg/dL (8.4-10.2); CARBON DIOXIDE 28 mmol/L (22-30); CHLORIDE 100 mmol/L (98-107); GLUCOSE 86 mg/dL (75-110); POTASSIUM 4.4 mmol/L (3.6-5.0); TOTAL PROTEIN 5.1 g/dL (6.3-8.2)
[2019-04-22] MEDS: LORAZEPAM INJ 2 MG/1 ML VIAL IV PRN ×2 (07:07→23:52)
--- NOTE | 2019-04-22 08:00 | PDOC PROGRESS REPORT ---
Subjective Progress Note for:: 04/22/19 Subjective:: still iwth incisional pain Reason For Visit: SBO HYPOKALOEMIA Physical Exam Vital Signs: Temp Pulse Resp BP Pulse Ox 98.0 F 102 H 20 115/60 98 04/22/19 03:28 04/22/19 03:28 04/22/19 03:28 04/22/19 03:28 04/22/19 05:49 Intake & Output 04/21/19 04/22/19 04/23/19 06:59 06:59 06:59 Intake Total 1610 2854 Output Total 4550 775 Balance -7440 2071 Weight 83 kg 83.2 kg General appearance: PRESENT: no acute distress Head exam: PRESENT: normocephalic Eye exam: PRESENT: EOMI Ear exam: PRESENT: normal external ear exam Mouth exam: PRESENT: moist Neck exam: PRESENT: full ROM Respiratory exam: PRESENT: decreased breath sounds - left base Cardiovascular exam: PRESENT: RRR Pulses: PRESENT: normal radial pulses, normal femoral pulses Vascular exam: PRESENT: normal capillary refill GI/Abdominal exam: PRESENT: other - abd softly distended +bs wound vac in place, wound clean, min drainage Extremities exam: PRESENT: full ROM Musculoskeletal exam: PRESENT: full ROM Neurological exam: PRESENT: alert, awake, oriented to person, oriented to place Psychiatric exam: PRESENT: appropriate affect Skin exam: PRESENT: dry Results Laboratory Results: 04/22/19 05:00 04/22/19 05:00 04/21/19 04/21/19 04/22/19 07:35 17:34 05:00 WBC 17.9 H 14.1 H RBC 3.26 L 3.14 L Hgb 10.1 L D 9.8 L Hct 30.1 L 28.9 L MCV 92 92 MCH 30.9 31.2 MCHC 33.5 33.9 RDW 16.3 H 16.6 H Plt Count 314 281 Seg Neutrophils % 79.2 H Sodium Potassium Chloride Carbon Dioxide Anion Gap BUN Creatinine Est GFR ( Amer) Glucose Calcium Total Bilirubin AST Alkaline Phosphatase Total Protein Albumin Blood Type A POSITIVE Antibody Screen NEGATIVE 04/22/19 05:00 WBC RBC Hgb Hct MCV MCH MCHC RDW Plt Count Seg Neutrophils % Sodium 133.0 L Potassium 4.4 Chloride 100 Carbon Dioxide 28 Anion Gap 5 BUN 10 Creatinine 0.37 L Est GFR ( Amer) > 60 Glucose 86 Calcium 8.2 L Total Bilirubin 0.9 AST 31 Alkaline Phosphatase 169 H Total Protein 5.1 L Albumin 2.5 L Blood Type Antibody Screen 04/20/19 01:30 Abdomen - Incision Site Gram Stain - Final Impressions: Abdomen/Pelvis CT 04/14/19 00:00 IMPRESSION: Generalize fluid in the abdomen. No herniation of bowel contents. There are air-fluid collections in the anterior abdominal wall subcutaneous fat measuring 7 cm in 3 cm. Differential includes abscess. Small bilateral pleural effusions. KUB X-Ray 04/17/19 00:00 IMPRESSION: Mild colonic distention. No evidence of mechanical obstruction. Chest X-Ray 04/19/19 08:43 IMPRESSION: Low lung volumes with enlarged cardiac silhouette and central vascular congestion. No overt edema. No significant effusion. Assessment & Plan - Plan Summary Plan Summary: metastatic gallbladder cancer s/p small bowel bypass s/p wound dehiscence and wound closure this am sl sob no flatus as yet + bs plan out of bed cont wound vac kim mccormcik.
[2019-04-22] MEDS ORDERED: BISACODYL 10 MG SUPP.RECT PR ONE ×2 (08:30→09:00)
[2019-04-22] MEDS: INSULIN LISPRO 100 UNIT/ML 3 ML VIAL SUBCUT SCH ×3 (09:03→21:39)
--- NOTE | 2019-04-22 09:04 | RADIOLOGY REPORT (SQ) ---
EXAM DESCRIPTION: CHEST SINGLE VIEW COMPLETED DATE/TIME: 04/22/2019 8:52 am REASON FOR STUDY: increased SOB COMPARISON: 04/19/2019 EXAM PARAMETERS: NUMBER OF VIEWS: One view. TECHNIQUE: Single frontal radiographic view of the chest acquired. RADIATION DOSE: NA LIMITATIONS: Low lung volumes. FINDINGS: LUNGS AND PLEURA: Minimal basilar atelectasis. No definite effusions. No consolidation o r pneumothorax. MEDIASTINUM AND HILAR STRUCTURES: No masses. Contour normal. HEART AND VASCULAR STRUCTURES: Stable in appearance. BONES: No acute findings. HARDWARE: [id number] remains in place. OTHER: No other significant finding. IMPRESSION: Low lung volumes. Minimal basilar atelectasis. Stable cardiomegaly. TECHNICAL DOCUMENTATION: JOB ID: [id number] [employer]- All Rights Reserved Reading location - IP/workstation name: [email or web address]
[2019-04-22] MEDS ORDERED: FUROSEMIDE INJ/PF 20 MG/2 ML SDV IV SCH (10:00)
[2019-04-22] MEDS: FUROSEMIDE INJ/PF 20 MG/2 ML SDV IV SCH (10:14)
[2019-04-22] MEDS: FLUTICASONE/UMECLIDIN/VILANTER 100-62.5-25 MCG/DOSE IH SCH (10:15)
--- NOTE | 2019-04-22 14:27 | PDOC PROGRESS REPORT ---
Subjective Progress Note for:: 04/22/19 Subjective:: Patient had some shortness of breath earlier this morning. Her abdominal binder was loosened to allow her breathe better. Still has some abdominal pain. Passing flatus but has not had a bowel movements yet. Reason For Visit: SBO HYPOKALOEMIA Physical Exam Vital Signs: Temp Pulse Resp BP Pulse Ox 97.1 F 103 H 18 126/73 H 100 04/22/19 12:47 04/22/19 12:47 04/22/19 12:47 04/22/19 12:47 04/22/19 12:47 Intake & Output 04/21/19 04/22/19 04/23/19 06:59 06:59 06:59 Intake Total 1610 2854 1010 Output Total 4550 775 900 Balance -2940 2079 110 Weight 83 kg 83.2 kg General appearance: PRESENT: no acute distress, cooperative Neck exam: ABSENT: JVD Respiratory exam: PRESENT: clear to auscultation christian, unlabored. ABSENT: tachypnea, wheezes Cardiovascular exam: PRESENT: RRR, +S1, +S2. ABSENT: tachycardia GI/Abdominal exam: PRESENT: distended, soft, tenderness. ABSENT: guarding, rebound, rigid Neurological exam: PRESENT: alert, awake, oriented to person, oriented to place, oriented to time, other - Tremors Psychiatric exam: ABSENT: agitated Focused psych exam: ABSENT: pressured speech Results Laboratory Results: 04/22/19 05:00 04/22/19 05:00 04/21/19 04/22/19 04/22/19 17:34 05:00 05:00 WBC 17.9 H 14.1 H RBC 3.26 L 3.14 L Hgb 10.1 L D 9.8 L Hct 30.1 L 28.9 L MCV 92 92 MCH 30.9 31.2 MCHC 33.5 33.9 RDW 16.3 H 16.6 H Plt Count 314 281 Seg Neutrophils % 79.2 H Sodium 133.0 L Potassium 4.4 Chloride 100 Carbon Dioxide 28 Anion Gap 5 BUN 10 Creatinine 0.37 L Est GFR ( Amer) > 60 Glucose 86 Calcium 8.2 L Total Bilirubin 0.9 AST 31 Alkaline Phosphatase 169 H Total Protein 5.1 L Albumin 2.5 L 04/20/19 01:30 Abdomen - Incision Site Gram Stain - Final 04/20/19 01:30 Abdomen - Incision Site Wound Culture - Final Escherichia Coli Enterococcus Faecalis(Group D) Klebsiella Pneumoniae Impressions: Abdomen/Pelvis CT 04/14/19 00:00 IMPRESSION: Generalize fluid in the abdomen. No herniation of bowel contents. There are air-fluid collections in the anterior abdominal wall subcutaneous fat measuring 7 cm in 3 cm. Differential includes abscess. Small bilateral pleural effusions. KUB X-Ray 04/17/19 00:00 IMPRESSION: Mild colonic distention. No evidence of mechanical obstruction. Chest X-Ray 04/22/19 00:00 IMPRESSION: Low lung volumes. Minimal basilar atelectasis. Stable cardiomegaly. Assessment and Plan - Diagnosis (1) Partial small bowel obstruction Is this a current diagnosis for this admission?: Yes Plan: Malignant SBO. 04/09/2019: Exploratory laparotomy and enteroenterostomy 04/14/2019: had ascitic fluid started leaking from surgical wound and a wound VAC was placed 04/20/2019: Taken to the OR for abdominal irrigation and fascial closure done for wound dehiscence. Abdominal binder placed. On clear liquids Wound culture on 04/20/2019 was a very superficial swab at incision site. As such the result is not reflective of true infection. Pain control. Currently on Dilaudid and IV Toradol. Docusate-senna. Positive flatus but no BM. Given a dose of Dulcolax today. (2) Hyponatremia Is this a current diagnosis for this admission?: Yes Plan: Stable (3) Malignant ascites Is this a current diagnosis for this admission?: Yes Plan: Patient has a lot of third spacing with malignant ascites due to hypoalbuminemia from her gallbladder cancer. Lasix given. (4) Left leg swelling Is this a current diagnosis for this admission?: Yes Plan: Ultrasound negative for DVT. Continue leg elevation. Compression stockings. Supportive measures. (5) COPD (chronic obstructive pulmonary disease) Qualifiers: COPD type: unspecified COPD Qualified Code(s): J44.9 - Chronic obstructive pulmonary disease, unspecified Is this a current diagnosis for this admission?: Yes Plan: Does not seem to be acutely exacerbated. PRN nebs. (6) Gallbladder cancer Is this a current diagnosis for this admission?: Yes Plan: Chemotherapy on hold. Oncology on board. Recommendations noted. Pain control and bowel regimen. (7) Anemia Qualifiers: Other causes of anemia: chronic disease, other Is this a current diagnosis for this admission?: Yes Plan: Likely secondary to chronic disease. Received 2 units of blood on 04/21/2019 after OR. - Time Time Spent with patient: Less than 15 minutes
[2019-04-22] MEDS: SENNOSIDES/DOCUSATE 8.6-50 MG 1 EACH TABLET PO SCH ×2 (15:39→21:38)
[2019-04-22] MEDS: POTASSI CL 20 MEQ/D5-1/2NS 1L 1,000 ML IV PRN (21:49)
[2019-04-23] MEDS: METOCLOPRAMIDE HCL INJ/PF 10 MG/2 ML SDV IV SCH ×5 (00:36→17:08)
[2019-04-23] MEDS: FUROSEMIDE INJ/PF 20 MG/2 ML SDV IV SCH ×2 (00:36→10:27)
[2019-04-23] MEDS: KETOROLAC TROMETHAMINE INJ/PF 30 MG/1 ML SDV IV SCH (02:58)
[2019-04-23] MEDS: HEPARIN SOD (PORCINE) 5,000 UNIT/ML 1 ML VIAL SUBCUT SCH ×3 (05:31→21:24)
[2019-04-23] MEDS: HYDROMORPHONE HCL INJ/PF 2 MG/ML AMPULE IV PRN ×4 (05:31→20:03)
[2019-04-23] MEDS: LEVALBUTEROL HCL NEB 1.25 MG/3 ML AMPUL NEB PRN ×2 (08:17→21:43)
[2019-04-23] MEDS ORDERED: MAGNESIUM HYDROXIDE SUSP 30 ML UDCUP PO PRN (09:05)
--- NOTE | 2019-04-23 09:10 | PDOC PROGRESS REPORT ---
Subjective Progress Note for:: 04/23/19 Subjective:: feels better today no c/o sob passing flatus Reason For Visit: SBO HYPOKALOEMIA Physical Exam Vital Signs: Temp Pulse Resp BP Pulse Ox 98.8 F 101 H 16 115/71 96 04/23/19 07:33 04/23/19 07:33 04/23/19 07:33 04/23/19 07:33 04/23/19 07:33 Intake & Output 04/22/19 04/23/19 04/24/19 06:59 06:59 06:59 Intake Total 2854 1280 Output Total 775 2225 Balance 2079 -945 Weight 83.2 kg 83.2 kg General appearance: PRESENT: no acute distress Eye exam: PRESENT: EOMI Mouth exam: PRESENT: moist Neck exam: PRESENT: full ROM Respiratory exam: PRESENT: clear to auscultation christian Cardiovascular exam: PRESENT: RRR Pulses: PRESENT: normal radial pulses, normal femoral pulses Vascular exam: PRESENT: normal capillary refill Breast: PRESENT: Normal GI/Abdominal exam: PRESENT: other - soft, wound vac in place. Rectal exam: PRESENT: deferred Gentrourinary exam: PRESENT: indwelling catheter Extremities exam: PRESENT: full ROM Musculoskeletal exam: PRESENT: full ROM Neurological exam: PRESENT: alert, awake, oriented to person, oriented to place Psychiatric exam: PRESENT: appropriate affect Skin exam: PRESENT: dry Results Laboratory Results: 04/22/19 05:00 04/22/19 05:00 04/20/19 01:30 Abdomen - Incision Site Gram Stain - Final 04/20/19 01:30 Abdomen - Incision Site Wound Culture - Final Escherichia Coli Enterococcus Faecalis(Group D) Klebsiella Pneumoniae Impressions: Abdomen/Pelvis CT 04/14/19 00:00 IMPRESSION: Generalize fluid in the abdomen. No herniation of bowel contents. There are air-fluid collections in the anterior abdominal wall subcutaneous fat measuring 7 cm in 3 cm. Differential includes abscess. Small bilateral pleural effusions. KUB X-Ray 04/17/19 00:00 IMPRESSION: Mild colonic distention. No evidence of mechanical obstruction. Chest X-Ray 04/22/19 00:00 IMPRESSION: Low lung volumes. Minimal basilar atelectasis. Stable cardiomegaly. Assessment & Plan - Plan Summary Plan Summary: s/p small bowel bypass for malilgnant obstruction s/o closure of abd wound dehisence now with return of bowel function passing flatus wound vac in place plan will dc [place] start soft diet home if dayday soft diet and passing stool\ will add mom today discharge planning for home health and wound vac.
[2019-04-23] MEDS: INSULIN LISPRO 100 UNIT/ML 3 ML VIAL SUBCUT SCH ×3 (10:25→17:01)
[2019-04-23] MEDS: SENNOSIDES/DOCUSATE 8.6-50 MG 1 EACH TABLET PO SCH ×2 (10:26→17:04)
[2019-04-23] MEDS: FLUTICASONE/UMECLIDIN/VILANTER 100-62.5-25 MCG/DOSE IH SCH (10:27)
[2019-04-23] MEDS: MAG HYDROX/AL HYDROX/SIMETH SUSP 30 ML UDCUP NG PRN ×3 (10:27→21:24)
--- NOTE | 2019-04-23 10:59 | PDOC PROGRESS REPORT ---
Subjective Progress Note for:: 04/23/19 Subjective:: Patient states abdominal pain is improved. Still passing flatus but has not had a bowel movement for the past 2 days now. Denies any chest pain. Occasionally feels mildly short of breath but thinks is due to the tightness of the abdominal binders. Reason For Visit: SBO HYPOKALOEMIA Physical Exam Vital Signs: Temp Pulse Resp BP Pulse Ox 98.8 F 101 H 16 115/71 96 04/23/19 07:33 04/23/19 07:33 04/23/19 07:33 04/23/19 07:33 04/23/19 07:33 Intake & Output 04/22/19 04/23/19 04/24/19 06:59 06:59 06:59 Intake Total 2854 1280 Output Total 775 2225 Balance 2079 -945 Weight 83.2 kg 83.2 kg General appearance: PRESENT: no acute distress, cooperative Neck exam: ABSENT: JVD Respiratory exam: PRESENT: clear to auscultation christian, unlabored. ABSENT: tachy pnea, wheezes Cardiovascular exam: PRESENT: RRR, +S1, +S2. ABSENT: tachycardia GI/Abdominal exam: PRESENT: distended, normal bowel sounds, soft, tenderness - Mild. ABSENT: firm, guarding, rebound, rigid Neurological exam: PRESENT: alert, awake, oriented to person, oriented to place, oriented to time, oriented to situation Psychiatric exam: ABSENT: agitated, anxious Results Laboratory Results: 04/22/19 05:00 04/22/19 05:00 04/20/19 01:30 Abdomen - Incision Site Gram Stain - Final 04/20/19 01:30 Abdomen - Incision Site Wound Culture - Final Escherichia Coli Enterococcus Faecalis(Group D) Klebsiella Pneumoniae Impressions: Abdomen/Pelvis CT 04/14/19 00:00 IMPRESSION: Generalize fluid in the abdomen. No herniation of bowel contents. There are air-fluid collections in the anterior abdominal wall subcutaneous fat measuring 7 cm in 3 cm. Differential includes abscess. Small bilateral pleural effusions. KUB X-Ray 04/17/19 00:00 IMPRESSION: Mild colonic distention. No evidence of mechanical obstruction. Chest X-Ray 04/22/19 00:00 IMPRESSION: Low lung volumes. Minimal basilar atelectasis. Stable cardiomegaly. Assessment and Plan - Diagnosis (1) Partial small bowel obstruction Is this a current diagnosis for this admission?: Yes Plan: Malignant SBO. 04/09/2019: Exploratory laparotomy and enteroenterostomy 04/14/2019: had ascitic fluid started leaking from surgical wound and a wound VAC was placed 04/20/2019: Taken to the OR for abdominal irrigation and fascial closure done for wound dehiscence. Abdominal binder placed. Advance to soft diet Wound culture on 04/20/2019 was a very superficial swab at incision site. As such the result is not reflective of true infection. Pain control. Currently on Dilaudid and IV Toradol. Docusate-senna. Positive flatus but no BM. Laxatives as needed. Surgicalist following (2) Hyponatremia Is this a current diagnosis for this admission?: Yes Plan: Stable (3) Malignant ascites Is this a current diagnosis for this admission?: Yes Plan: Patient has a lot of third spacing from hypoalbuminemia as well as malignant ascites due to her metastatic gallbladder cancer. On Lasix. Chest x-ray showing no significant evidence of pulmonary edema. (4) Left leg swelling Is this a current diagnosis for this admission?: Yes Plan: Ultrasound negative for DVT. Continue leg elevation. Compression stockings. S upportive measures. Lasix. (5) COPD (chronic obstructive pulmonary disease) Qualifiers: COPD type: unspecified COPD Qualified Code(s): J44.9 - Chronic obstructive pulmonary disease, unspecified Is this a current diagnosis for this admission?: Yes Plan: Does not seem to be acutely exacerbated. PRN nebs. (6) Gallbladder cancer Is this a current diagnosis for this admission?: Yes Plan: Chemotherapy on hold. Oncology on board. Recommendations noted. Pain control and bowel regimen. (7) Anemia Qualifiers: Other causes of anemia: chronic disease, other Is this a current diagnosis for this admission?: Yes Plan: Likely secondary to chronic disease. Received 2 units of blood on 04/21/2019 after OR. - Time Time Spent with patient: Less than 15 minutes
[2019-04-23] MEDS: FUROSEMIDE 20 MG TABLET PO SCH (17:04)
[2019-04-23] MEDS: POTASSI CL 20 MEQ/D5-1/2NS 1L 1,000 ML IV PRN (17:33)
[2019-04-23] MEDS: ONDANSETRON HCL INJ/PF 4 MG/2 ML SDV IV PRN (20:02)
[2019-04-23] MEDS: IPRATROPIUM BROMIDE 0.02% NEB 0.5 MG/2.5 ML AMPUL NEB PRN (21:43)
[2019-04-24] MEDS: INSULIN LISPRO 100 UNIT/ML 3 ML VIAL SUBCUT SCH ×3 (01:50→12:16)
[2019-04-24] MEDS: METOCLOPRAMIDE HCL INJ/PF 10 MG/2 ML SDV IV SCH ×3 (01:51→12:17)
[2019-04-24] MEDS: HYDROMORPHONE HCL INJ/PF 2 MG/ML AMPULE IV PRN (05:41)
[2019-04-24] MEDS: HEPARIN SOD (PORCINE) 5,000 UNIT/ML 1 ML VIAL SUBCUT SCH (05:41)
[2019-04-24 06:33] LABS: ABSOLUTE BASOPHILS # (AUTO) 0.1 10^3/uL (0.0-0.2); ABSOLUTE EOSINOPHILS # (AUTO) 0.1 10^3/uL (0.0-0.6); ABSOLUTE LYMPHOCYTES (AUTO) 1.2 10^3/uL (0.5-4.7); ABSOLUTE MONOCYTES (AUTO) 0.9 10^3/uL (0.1-1.4); ABSOLUTE NEUT (AUTO) 8.4 10^3/uL (1.7-8.2); BASOPHILS % (AUTO) 0.7 % (0-2); HEMATOCRIT 27.9 % (36.0-47.0); HEMOGLOBIN 9.6 g/dL (12.0-15.5); LYMPHOCYTES % (AUTO) 11.3 % (13-45); MEAN CORPUSCULAR HEMOGLOBIN 31.7 pg (27.0-33.4); MEAN CORPUSCULAR HGB CONC 34.4 g/dL (32.0-36.0); MEAN CORPUSCULAR VOLUME 92 fl (80-97); MONOCYTES % (AUTO) 8.5 % (3-13); PLATELET COUNT 229 10^3/uL (150-450); RED BLOOD COUNT 3.03 10^6/uL (3.72-5.28); SEGMENTED NEUTROPHILS % (AUTO) 78.5 % (42-78); TOTAL CELLS COUNTED % (AUTO) 100 %; WHITE BLOOD COUNT 10.7 10^3/uL (4.0-10.5)
[2019-04-24 07:02] LABS: BLOOD UREA NITROGEN 5 mg/dL (7-20); GLUCOSE 98 mg/dL (75-110)
[2019-04-24 07:07] LABS: CARBON DIOXIDE 30 mmol/L (22-30); CHLORIDE 98 mmol/L (98-107)
[2019-04-24 07:08] LABS: ANION GAP 4 (5-19)
--- NOTE | 2019-04-24 07:54 | PDOC DISCHARGE SUMMARY ---
General - Admit/Disc Date/PCP Admission Date/Primary Care Provider: 04/05/19 19:52 JASWANT EDWARDS MD Discharge Date: 04/24/19 - Discharge Diagnosis Final Diagnosis: metastatic gallbladder cancer with small bowel obstruction - Assessment Summary: CARMEN RUSSO is a 64 year old female with a past medical history of COPD, anxiety, hypertension, diabetes, metastatic gallbladder cancer and recurrent small bowel obstruction. She presents with 24 to 48 hours of abdominal pain and distention with nausea and vomiting. In the emergency department she is found to have small bowel obstruction with hypokalemia and hyponatremia. NG tube is placed producing 500 mL of gastric content aspirate. She denies exceptional constipation and CT does not reveal impaction. She is evaluated by surgery and felt to be a poor candidate for surgery unless failing conservative management. 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 She was taken to the operating when she went a small bowel bypass. Subsequent to that she started improving NG tube was eventually removed and she started having bowel movements. However proximal and about a week after surgery she was noted to have increased ascitic drainage from her wound diagnosis of the wound dehiscence was made she was taken back to the operating room for wound closure with retention sutures. Subsequent to that she continued to improve which she regained bowel function started back on a diet her wound now is closed with retention sutures and a wound VAC has been placed. At this time she is tolerating a soft diet she is having intermittent nausea however she is having bowel movements and bowel function. At this time she is to be discharged home with wound VAC in place and home health follow-up She will follow-up with me in surgical clinic in 7 to 10 days after discharge She will be given a prescription for [place] for pain medicine on discharge and Dr. glaser from medicine department will also review her chart prior to her discharge and reconcile her other medications prior to discharge. - Additional Information Resuscitation Status: Full Code Discharge Diet: As Tolerated Discharge Activity: No Lifting Over 10 Pounds Referrals: JASWANT EDWARDS MD [Primary Care Provider] - Follow up as needed Prescriptions: Hydrocodone/Acetaminophen [[place] 5-325 Tablet] 1 each PO Q6HP PRN #30 tablet PRN Reason: Home Medications: Albuterol Sulfate [Albuterol Sulfate 2.5mg/3 mL] 1 puff IH Q12 01/14/12 Metformin HCl [Metformin HCl ER] 500 mg PO BIDBS 03/06/18 Fluticasone/Salmeterol [Advair 250-50 Diskus 14 Dose/Diskus] 1 inh IH Q12 #1 inhaler 04/04/18 Irbesartan/Hydrochlorothiazide [Avalide 300-12.5 mg Tablet] 1 each PO DAILY #30 tablet 04/04/18 Tiotropium [place] [Spiriva Respimat] 2 puff IH DAILY #1 mist.inhal 04/04/18 Ondansetron HCl [Zofran 8 mg Tablet] 8 mg PO Q8HP PRN 05/28/18 Alprazolam 1 mg PO Q12 03/23/19 Chemo: Cisplatin/Gemcitabine 1 each IV ASDIR PRN 03/23/19 Amlodipine Besylate [Norvasc 5 mg Tablet] 2.5 mg PO DAILY 03/24/19 Hydrocodone/Acetaminophen [[place] 5-325 mg Tablet] 1 tab PO Q6HP PRN 04/05/19 Lorazepam [Ativan 1 mg Tablet] 1 mg PO Q6HP PRN 04/05/19 Pantoprazole Sodium [Protonix [address] Tablet] 40 mg PO QAM 04/05/19 Hydrocodone/Acetaminophen [[place] 5-325 Tablet] 1 each PO Q6HP PRN #30 tablet 04/24/19 History of Present Illiness History of Present Illness: CARMEN RUSSO is a 64 year old female Physical Exam Vital Signs: Temp Pulse Resp BP Pulse Ox 97.5 F 93 20 100/59 L 98 04/24/19 03:17 04/24/19 03:17 04/24/19 03:17 04/24/19 03:17 04/24/19 03:17 Intake & Output 04/23/19 04/24/19 04/25/19 06:59 06:59 06:59 Intake Total 1280 1667 Output Total 3164 4798 Balance -805 -3985 Weight 83.2 kg 83.2 kg Results Laboratory Results: WBC 10.7 10^3/uL (4.0-10.5) H 04/24/19 06:16 RBC 3.03 10^6/uL (3.72-5.28) L 03/18/20 06:16 Hgb 9.6 g/dL (12.0-15.5) L 04/24/19 06:16 Hct 27.9 % (36.0-47.0) L 04/24/19 06:16 MCV 92 fl (80-97) 04/24/19 06:16 MCH 31.7 pg (27.0-33.4) 04/24/19 06:16 MCHC 34.4 g/dL (32.0-36.0) 04/24/19 06:16 RDW 16.0 % (11.5-14.0) H 04/24/19 06:16 Plt Count 229 10^3/uL (150-450) 04/24/19 06:16 Lymph % (Auto) 11.3 % (13-45) L 04/24/19 06:16 [place] % (Auto) 8.5 % (3-13) 04/24/19 06:16 Eos % (Auto) 1.0 % (0-6) 04/24/19 06:16 Baso % (Auto) 0.7 % (0-2) 04/24/19 06:16 Absolute Neuts (auto) 8.4 10^3/uL (1.7-8.2) H 04/24/19 06:16 Absolute Lymphs (auto) 1.2 10^3/uL (0.5-4.7) 04/24/19 06:16 Absolute Monos (auto) 0.9 10^3/uL (0.1-1.4) 04/24/19 06:16 Absolute Eos (auto) 0.1 10^3/uL (0.0-0.6) 04/24/19 06:16 Absolute Basos (auto) 0.1 10^3/uL (0.0-0.2) 04/24/19 06:16 Total Counted 100 04/19/19 16:23 Seg Neuts % (Manual) 80 % (42-78) H 04/19/19 16:23 Band Neutrophils % 1 % (3-5) L 04/19/19 16:23 Seg Neutrophils % 78.5 % (42-78) H 04/24/19 06:16 Lymphocytes % (Manual) 11 % (13-45) L 04/19/19 16:23 Atypical Lymphs % 1 % (0) 03/05/20 08:15 Monocytes % (Manual) 7 % (3-13) 04/19/19 16:23 Eosinophils % (Manual) 1 % (0-6) 04/19/19 16:23 Basophils % (Manual) 0 % (0-2) 04/19/19 16:23 Metamyelocytes % 1 % (0-1) 04/09/19 06:00 Promyelocytes % 1 % (0) H 04/13/19 06:35 Abs Neuts (Manual) 7.7 10^3/uL (1.7-8.2) 04/19/19 16:23 Abs Lymphs (Manual) 1.0 10^3/uL (0.5-4.7) 04/19/19 16:23 Abs Monocytes (Manual) 0.7 10^3/uL (0.1-1.4) 04/19/19 16:23 Absolute Eos (Manual) 0.1 10^3/uL (0.0-0.6) 04/19/19 16:23 Abs Basophils (Manual) 0.0 10^3/uL (0.0-0.2) 04/19/19 16:23 Nucleated RBCs 1 /100 WBC (0) 04/09/19 06:00 Toxic Granulation SLIGHT 04/15/19 05:15 Toxic Vacuolation PRESENT 04/15/19 05:15 Dohle Bodies PRESENT 04/11/19 08:15 Clumped Platelets PRESENT 04/15/19 05:15 Platelet Comment ADEQUATE 04/19/19 16:23 Polychromasia SLIGHT 04/17/19 05:00 Poikilocytosis SLIGHT 04/19/19 16:23 Basophilic Stippling PRESENT 04/15/19 05:15 Anisocytosis SLIGHT 04/17/19 05:00 Tear Drop Cells SLIGHT 04/16/19 04:55 Ovalocytes SLIGHT 04/19/19 16:23 [place] Cells SLIGHT 04/10/19 05:15 Schistocytes SLIGHT 04/10/19 05:15 RBC Morph Comment NORMO-CYTIC/CHROMIC 04/05/19 16:20 PT 20.9 SEC (11.4-15.4) H 04/14/19 16:35 INR 1.78 04/14/19 16:35 Sodium 132.3 mmol/L (137-145) L 04/24/19 06:16 Potassium 4.0 mmol/L (3.6-5.0) 04/24/19 06:16 Chloride 98 mmol/L (98-107) 04/24/19 06:16 Carbon Dioxide 30 mmol/L (22-30) 04/24/19 06:16 Anion Gap 4 (5-19) L 04/24/19 06:16 BUN 5 mg/dL (7-20) L 04/24/19 06:16 Creatinine 0.32 mg/dL (0.52-1.25) L 04/24/19 06:16 Est GFR ( Amer) > 60 (>60) 04/24/19 06:16 Est GFR (MDRD) Non-Af > 60 (>60) 04/24/19 06:16 Glucose 98 mg/dL (75-110) 04/24/19 06:16 POC Glucose 106 mg/dL (70-110) 04/23/19 21:11 Lactic Acid 0.8 mmol/L (0.7-2.1) 04/05/19 16:20 Calcium 8.0 mg/dL (8.4-10.2) L 04/24/19 06:16 Phosphorus 2.9 mg/dL (2.5-4.5) 04/16/19 04:55 Magnesium 2.3 mg/dL (1.6-2.3) 04/21/19 04:36 Total Bilirubin 0.9 mg/dL (0.2-1.3) 04/22/19 05:00 Direct Bilirubin 0.3 mg/dL (0.0-0.4) 04/22/19 05:00 Neonat Total Bilirubin Not Reportable 04/22/19 05:00 Neonat Direct Bilirubin Not Reportable 04/22/19 05:00 Neonat Indirect Bili Not Reportable 04/22/19 05:00 AST 31 U/L (14-36) 04/22/19 05:00 ALT 18 U/L (<35) 04/22/19 05:00 Alkaline Phosphatase 169 U/L (38-126) H 04/22/19 05:00 Total Protein 5.1 g/dL (6.3-8.2) L 04/22/19 05:00 Albumin 2.5 g/dL (3.5-5.0) L 04/22/19 05:00 Prealbumin 3.8 mg/dL (17.6-36.0) L 04/17/19 05:00 Triglycerides 126 mg/dL (<150) 04/18/19 05:20 Lipase < 10.0 U/L (23-300) L 04/05/19 16:20 Urine Color JESSICA 04/05/19 13:50 Urine Appearance SLIGHTLY-CLOUDY 04/05/19 13:50 Urine pH 5.0 (5.0-9.0) 04/05/19 13:50 Ur Specific [place] 1.024 04/05/19 13:50 Urine Protein NEGATIVE mg/dL (NEGATIVE) 04/05/19 13:50 Urine Glucose (UA) NEGATIVE mg/dL (NEGATIVE) 04/05/19 13:50 Urine Ketones TRACE mg/dL (NEGATIVE) H 04/05/19 13:50 Urine Blood NEGATIVE (NEGATIVE) 04/05/19 13:50 Urine Nitrite NEGATIVE (NEGATIVE) 04/05/19 13:50 Urine Bilirubin NEGATIVE (NEGATIVE) 04/05/19 13:50 Urine Urobilinogen 4.0 mg/dL (<2.0) H 04/05/19 13:50 Ur Leukocyte Esterase NEGATIVE (NEGATIVE) 04/05/19 13:50 Urine WBC (Auto) 5 /HPF 04/05/19 13:50 Urine RBC (Auto) 0 /HPF 04/05/19 13:50 U Hyaline Cast (Auto) 1 /LPF 04/05/19 13:50 Urine Bacteria (Auto) TRACE /HPF 04/05/19 13:50 Squamous Epi Cells Auto 4 /HPF 04/05/19 13:50 Calcium Oxalate Cr Auto FEW /HPF 04/05/19 13:50 Urine Mucus (Auto) MOD /LPF 04/05/19 13:50 Urine Ascorbic Acid NEGATIVE (NEGATIVE) 04/05/19 13:50 Slides for Path Review PATHOLOGIST REVIEWED 04/11/19 08:15 Blood Type A POSITIVE 04/21/19 07:35 Blood Type Confirm A POSITIVE 04/08/19 17:28 Antibody Screen NEGATIVE 04/21/19 07:35 Crossmatch See Detail 04/21/19 07:35 Impressions: Abdomen/Pelvis CT 04/05/19 00:00 IMPRESSION: Distal small bowel obstruction. KUB X-Ray 04/05/19 00:00 IMPRESSION: SATISFACTORY POSITION OF THE NASOGASTRIC TUBE. OTHERWISE UNCHANGED. Chest X-Ray 04/05/19 13:14 IMPRESSION: Stable left basilar atelectasis/scarring. No evidence of acute intrathoracic process. Dilated small bowel loops, better evaluated on same day abdominal radiograph. KUB X-Ray 04/05/19 13:16 IMPRESSION: Small bowel obstruction with small bowel loops throughout the central abdomen measuring up to 4.7 cm. Chest X-Ray 04/08/19 00:00 IMPRESSION: Satisfactory position of the nasogastric tube. Small bowel obstruction copyright 2011 [employer]- All Rights Reserved Abdomen/Pelvis CT 04/14/19 00:00 IMPRESSION: Generalize fluid in the abdomen. No herniation of bowel contents. There are air-fluid collections in the anterior abdominal wall subcutaneous fat measuring 7 cm in 3 cm. Differential includes abscess. Small bilateral pleural effusions. KUB X-Ray 04/17/19 00:00 IMPRESSION: Mild colonic distention. No evidence of mechanical obstruction. Chest X-Ray 04/19/19 08:43 IMPRESSION: Low lung volumes with enlarged cardiac silhouette and central vascular congestion. No overt edema. No significant effusion. Chest X-Ray 04/22/19 00:00 IMPRESSION: Low lung volumes. Minimal basilar atelectasis. Stable cardiomegaly.
[2019-04-24] MEDS: MAG HYDROX/AL HYDROX/SIMETH SUSP 30 ML UDCUP NG PRN (08:57)
--- NOTE | 2019-04-24 09:07 | PDOC DISCHARGE SUMMARY ---
Impression - Admit/DC Date/PCP Admission Date/Primary Care Provider: 04/05/19 19:52 JASWANT EDWARDS MD Discharge Date: 04/24/19 - Assessment Summary: CARMEN RUSSO is a 64 year old female with a past medical history of COPD, anxiety, hypertension, diabetes, metastatic gallbladder cancer and recurrent small bowel obstruction. She presents with 24 to 48 hours of abdominal pain and distention with nausea and vomiting. In the emergency department she is found to have small bowel obstruction with hypokalemia and hyponatremia. NG tube is placed producing 500 mL of gastric content aspirate. She denies exceptional constipation and CT does not reveal impaction. She is evaluated by surgery and felt to be a poor candidate for surgery unless failing conservative management. 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 She was taken to the operating when she went a small bowel bypass. Subsequent to that she started improving NG tube was eventually removed and she started having bowel movements. However proximal and about a week after surgery she was noted to have increased ascitic drainage from her wound diagnosis of the wound dehiscence was made she was taken back to the operating room for wound closure with retention sutures. Subsequent to that she continued to improve which she regained bowel function started back on a diet her wound now is closed with retention sutures and a wound VAC has been placed. At this time she is tolerating a soft diet she is having intermittent nausea however she is having bowel movements and bowel function. At this time she is to be discharged home with wound VAC in place and home health follow-up She will follow-up with me in surgical clinic in 7 to 10 days after discharge She will be given a prescription for [place] for pain medicine on discharge and Dr. glaser from medicine department will also review her chart prior to her discharge and reconcile her other medications prior to discharge. - Additional Information Resuscitation Status: Full Code Discharge Diet: As Tolerated Discharge Activity: No Lifting Over 10 Pounds Referrals: JASWANT EDWARDS MD [Primary Care Provider] - 04/26/19 3:30 pm Prescriptions: Furosemide [Lasix 20 mg Tablet] 20 mg PO DAILY 21 Days #21 tablet Hydrocodone/Acetaminophen [[place] 5-325 Tablet] 1 each PO Q6HP PRN #30 tablet PRN Reason: Home Medications: Albuterol Sulfate [Albuterol Sulfate 2.5mg/3 mL] 1 puff IH Q12 01/14/12 Metformin HCl [Metformin HCl ER] 500 mg PO BIDBS 03/06/18 Fluticasone/Salmeterol [Advair 250-50 Diskus 14 Dose/Diskus] 1 inh IH Q12 #1 inhaler 04/04/18 Irbesartan/Hydrochlorothiazide [Avalide 300-12.5 mg Tablet] 1 each PO DAILY #30 tablet 04/04/18 Tiotropium [place] [Spiriva Respimat] 2 puff IH DAILY #1 mist.inhal 04/04/18 Ondansetron HCl [Zofran 8 mg Tablet] 8 mg PO Q8HP PRN 05/28/18 Alprazolam 1 mg PO Q12 03/23/19 Chemo: Cisplatin/Gemcitabine 1 each IV ASDIR PRN 03/23/19 Amlodipine Besylate [Norvasc 5 mg Tablet] 2.5 mg PO DAILY 03/24/19 Hydrocodone/Acetaminophen [[place] 5-325 mg Tablet] 1 tab PO Q6HP PRN 04/05/19 Lorazepam [Ativan 1 mg Tablet] 1 mg PO Q6HP PRN 04/05/19 Pantoprazole Sodium [Protonix [address] Tablet] 40 mg PO QAM 04/05/19 Furosemide [Lasix 20 mg Tablet] 20 mg PO DAILY 21 Days #21 tablet 04/24/19 Hydrocodone/Acetaminophen [[place] 5-325 Tablet] 1 each PO Q6HP PRN #30 tablet 04/24/19 History of Present Illiness History of Present Illness: CARMEN RUSSO is a 64 year old female with a past medical history of COPD, anxiety, hypertension, diabetes, metastatic gallbladder cancer and recurrent small bowel obstruction. She presents with 24 to 48 hours of abdominal pain and distention with nausea and vomiting. In the emergency department she is found to have small bowel obstruction with hypokalemia and hyponatremia. NG tube is placed producing 500 mL of gastric content aspirate. She denies exceptional constipation and CT does not reveal impaction. She is evaluated by surgery and felt to be a poor candidate for surgery unless failing conservative management. She is referred to the hospitalist for admission Hospital Course Hospital Course: Please also see the discharge summary dictated by Dr. Michaud. 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 She required surgery to bypass the lesion. She developed wound dehiscence and required a second surgery for closure with retention sutures. She currently has a VAC in place to collect drainage. She experienced low blood pressure and her Avalide has been on hold. Her COPD has been stable. She is now back on a soft diet and will follow up with her primary care Dr. Edwards as well as surgery. Physical Exam Vital Signs: Temp Pulse Resp BP Pulse Ox 98.2 F 97 15 113/78 99 04/24/19 08:00 04/24/19 07:00 04/24/19 08:00 04/24/19 08:00 04/24/19 08:00 Intake & Output 04/23/19 04/24/19 04/25/19 06:59 06:59 06:59 Intake Total 1280 1667 Output Total 2225 4250 Balance -945 -2583 Weight 83.2 kg 83.2 kg General appearance: PRESENT: no acute distress, cooperative, well-developed Head exam: PRESENT: atraumatic, normocephalic Eye exam: PRESENT: conjunctiva pale Ear exam: PRESENT: normal external ear exam. ABSENT: bleeding, drainage Mouth exam: PRESENT: moist, tongue midline Respiratory exam: PRESENT: clear to auscultation christian, symmetrical, unlabored. ABSENT: accessory muscle use, prolonged expiratory phas, rales, rhonchi, tachypnea, wheezes Cardiovascular exam: PRESENT: RRR, +S1, +S2. ABSENT: diastolic murmur, systolic murmur GI/Abdominal exam: PRESENT: normal bowel sounds, soft, tenderness, other - Abdominal binder in place with surgical wound underlying. I did not undress the wound at this time. Rectal exam: PRESENT: deferred Gentrourinary exam: ABSENT: indwelling catheter Extremities exam: PRESENT: pedal edema Musculoskeletal exam: PRESENT: ambulatory Neurological exam: PRESENT: alert, awake, oriented to person, oriented to place, oriented to time, oriented to situation, CN II-XII grossly intact. ABSENT: altered Psychiatric exam: PRESENT: flat affect. ABSENT: agitated, anxious Focused psych exam: ABSENT: delusional, restlessness Skin exam: PRESENT: dry, warm. ABSENT: erythema, rash Results Laboratory Results: WBC 10.7 10^3/uL (4.0-10.5) H 03/18/20 06:16 RBC 3.03 10^6/uL (3.72-5.28) L 04/24/19 06:16 Hgb 9.6 g/dL (12.0-15.5) L 04/24/19 06:16 Hct 27.9 % (36.0-47.0) L 04/24/19 06:16 MCV 92 fl (80-97) 04/24/19 06:16 MCH 31.7 pg (27.0-33.4) 04/24/19 06:16 MCHC 34.4 g/dL (32.0-36.0) 04/24/19 06:16 RDW 16.0 % (11.5-14.0) H 04/24/19 06:16 Plt Count 229 10^3/uL (150-450) 04/24/19 06:16 Lymph % (Auto) 11.3 % (13-45) L 04/24/19 06:16 [place] % (Auto) 8.5 % (3-13) 04/24/19 06:16 Eos % (Auto) 1.0 % (0-6) 04/24/19 06:16 Baso % (Auto) 0.7 % (0-2) 04/24/19 06:16 Absolute Neuts (auto) 8.4 10^3/uL (1.7-8.2) H 04/24/19 06:16 Absolute Lymphs (auto) 1.2 10^3/uL (0.5-4.7) 04/24/19 06:16 Absolute Monos (auto) 0.9 10^3/uL (0.1-1.4) 04/24/19 06:16 Absolute Eos (auto) 0.1 10^3/uL (0.0-0.6) 04/24/19 06:16 Absolute Basos (auto) 0.1 10^3/uL (0.0-0.2) 04/24/19 06:16 Total Counted 100 04/19/19 16:23 Seg Neuts % (Manual) 80 % (42-78) H 04/19/19 16:23 Band Neutrophils % 1 % (3-5) L 04/19/19 16:23 Seg Neutrophils % 78.5 % (42-78) H 04/24/19 06:16 Lymphocytes % (Manual) 11 % (13-45) L 04/19/19 16:23 Atypical Lymphs % 1 % (0) 04/11/19 08:15 Monocytes % (Manual) 7 % (3-13) 04/19/19 16:23 Eosinophils % (Manual) 1 % (0-6) 04/19/19 16:23 Basophils % (Manual) 0 % (0-2) 04/19/19 16:23 Metamyelocytes % 1 % (0-1) 04/09/19 06:00 Promyelocytes % 1 % (0) H 04/13/19 06:35 Abs Neuts (Manual) 7.7 10^3/uL (1.7-8.2) 04/19/19 16:23 Abs Lymphs (Manual) 1.0 10^3/uL (0.5-4.7) 04/19/19 16:23 Abs Monocytes (Manual) 0.7 10^3/uL (0.1-1.4) 04/19/19 16:23 Absolute Eos (Manual) 0.1 10^3/uL (0.0-0.6) 04/19/19 16:23 Abs Basophils (Manual) 0.0 10^3/uL (0.0-0.2) 04/19/19 16:23 Nucleated RBCs 1 /100 WBC (0) 04/09/19 06:00 Toxic Granulation SLIGHT 04/15/19 05:15 Toxic Vacuolation PRESENT 04/15/19 05:15 Dohle Bodies PRESENT 04/11/19 08:15 Clumped Platelets PRESENT 04/15/19 05:15 Platelet Comment ADEQUATE 04/19/19 16:23 Polychromasia SLIGHT 04/17/19 05:00 Poikilocytosis SLIGHT 04/19/19 16:23 Basophilic Stippling PRESENT 04/15/19 05:15 Anisocytosis SLIGHT 04/17/19 05:00 Tear Drop Cells SLIGHT 04/16/19 04:55 Ovalocytes SLIGHT 04/19/19 16:23 Brooks Cells SLIGHT 04/10/19 05:15 Schistocytes SLIGHT 04/10/19 05:15 RBC Morph Comment NORMO-CYTIC/CHROMIC 04/05/19 16:20 PT 20.9 SEC (11.4-15.4) H 04/14/19 16:35 INR 1.78 04/14/19 16:35 Sodium 132.3 mmol/L (137-145) L 04/24/19 06:16 Potassium 4.0 mmol/L (3.6-5.0) 04/24/19 06:16 Chloride 98 mmol/L (98-107) 04/24/19 06:16 Carbon Dioxide 30 mmol/L (22-30) 04/24/19 06:16 Anion Gap 4 (5-19) L 04/24/19 06:16 BUN 5 mg/dL (7-20) L 04/24/19 06:16 Creatinine 0.32 mg/dL (0.52-1.25) L 04/24/19 06:16 Est GFR ( Amer) > 60 (>60) 04/24/19 06:16 Est GFR (MDRD) Non-Af > 60 (>60) 04/24/19 06:16 Glucose 98 mg/dL (75-110) 04/24/19 06:16 POC Glucose 104 mg/dL (70-110) 04/24/19 08:01 Lactic Acid 0.8 mmol/L (0.7-2.1) 04/05/19 16:20 Calcium 8.0 mg/dL (8.4-10.2) L 04/24/19 06:16 Phosphorus 2.9 mg/dL (2.5-4.5) 04/16/19 04:55 Magnesium 2.3 mg/dL (1.6-2.3) 04/21/19 04:36 Total Bilirubin 0.9 mg/dL (0.2-1.3) 04/22/19 05:00 Direct Bilirubin 0.3 mg/dL (0.0-0.4) 04/22/19 05:00 Neonat Total Bilirubin Not Reportable 04/22/19 05:00 Neonat Direct Bilirubin Not Reportable 04/22/19 05:00 Neonat Indirect Bili Not Reportable 04/22/19 05:00 AST 31 U/L (14-36) 04/22/19 05:00 ALT 18 U/L (<35) 04/22/19 05:00 Alkaline Phosphatase 169 U/L (38-126) H 04/22/19 05:00 Total Protein 5.1 g/dL (6.3-8.2) L 04/22/19 05:00 Albumin 2.5 g/dL (3.5-5.0) L 04/22/19 05:00 Prealbumin 3.8 mg/dL (17.6-36.0) L 04/17/19 05:00 Triglycerides 126 mg/dL (<150) 04/18/19 05:20 Lipase < 10.0 U/L (23-300) L 04/05/19 16:20 Urine Color JESSICA 04/05/19 13:50 Urine Appearance SLIGHTLY-CLOUDY 04/05/19 13:50 Urine pH 5.0 (5.0-9.0) 04/05/19 13:50 Ur Specific [place] 1.024 04/05/19 13:50 Urine Protein NEGATIVE mg/dL (NEGATIVE) 04/05/19 13:50 Urine Glucose (UA) NEGATIVE mg/dL (NEGATIVE) 04/05/19 13:50 Urine Ketones TRACE mg/dL (NEGATIVE) H 04/05/19 13:50 Urine Blood NEGATIVE (NEGATIVE) 04/05/19 13:50 Urine Nitrite NEGATIVE (NEGATIVE) 04/05/19 13:50 Urine Bilirubin NEGATIVE (NEGATIVE) 04/05/19 13:50 Urine Urobilinogen 4.0 mg/dL (<2.0) H 04/05/19 13:50 Ur Leukocyte Esterase NEGATIVE (NEGATIVE) 04/05/19 13:50 Urine WBC (Auto) 5 /HPF 04/05/19 13:50 Urine RBC (Auto) 0 /HPF 04/05/19 13:50 U Hyaline Cast (Auto) 1 /LPF 04/05/19 13:50 Urine Bacteria (Auto) TRACE /HPF 04/05/19 13:50 Squamous Epi Cells Auto 4 /HPF 04/05/19 13:50 Calcium Oxalate Cr Auto FEW /HPF 04/05/19 13:50 Urine Mucus (Auto) MOD /LPF 04/05/19 13:50 Urine Ascorbic Acid NEGATIVE (NEGATIVE) 04/05/19 13:50 Slides for Path Review PATHOLOGIST REVIEWED 04/11/19 08:15 Blood Type A POSITIVE 04/21/19 07:35 Blood Type Confirm A POSITIVE 04/08/19 17:28 Antibody Screen NEGATIVE 04/21/19 07:35 Crossmatch See Detail 04/21/19 07:35 Impressions: Abdomen/Pelvis CT 04/05/19 00:00 IMPRESSION: Distal small bowel obstruction. KUB X-Ray 04/05/19 00:00 IMPRESSION: SATISFACTORY POSITION OF THE NASOGASTRIC TUBE. OTHERWISE UNCHANGED. Chest X-Ray 04/05/19 13:14 IMPRESSION: Stable left basilar atelectasis/scarring. No evidence of acute intrathoracic process. Dilated small bowel loops, better evaluated on same day abdominal radiograph. KUB X-Ray 04/05/19 13:16 IMPRESSION: Small bowel obstruction with small bowel loops throughout the central abdomen measuring up to 4.7 cm. Chest X-Ray 04/08/19 00:00 IMPRESSION: Satisfactory position of the nasogastric tube. Small bowel obstruction copyright 2011 [employer]- All Rights Reserved Abdomen/Pelvis CT 04/14/19 00:00 IMPRESSION: Generalize fluid in the abdomen. No herniation of bowel contents. There are air-fluid collections in the anterior abdominal wall subcutaneous fat measuring 7 cm in 3 cm. Differential includes abscess. Small bilateral pleural effusions. KUB X-Ray 04/17/19 00:00 IMPRESSION: Mild colonic distention. No evidence of mechanical obstruction. Chest X-Ray 04/19/19 08:43 IMPRESSION: Low lung volumes with enlarged cardiac silhouette and central vascular congestion. No overt edema. No significant effusion. Chest X-Ray 04/22/19 00:00 IMPRESSION: Low lung volumes. Minimal basilar atelectasis. Stable cardiomegaly. Plan Health Concerns: Metastatic gallbladder cancer which may retard healing. Low blood pressures in the normally hypertensive patient. Plan of Treatment: Follow-up with surgery. Hold Avalide and continue furosemide 20 mg daily until seen by primary care provider. Blood pressure will likely begin to increase and she will probably need to resume other antihypertensive medications. Goals: Healing of abdominal incision as well as control of blood pressure and maintaining normal electrolyte balance. Time Spent: Greater than 30 Minutes Stroke Is this a Stroke Patient?: No Acute Heart Failure - Is this a Heart Failure Patient?: No
[2019-04-24] MEDS: FLUTICASONE/UMECLIDIN/VILANTER 100-62.5-25 MCG/DOSE IH SCH (09:38)
[2019-04-24] MEDS: FUROSEMIDE 20 MG TABLET PO SCH (09:38)
[2019-04-24] MEDS: SENNOSIDES/DOCUSATE 8.6-50 MG 1 EACH TABLET PO SCH (09:38)
[2019-04-24] MEDS ORDERED: HYDROCODONE/ACETAMINOPHEN 10-325 MG TABLET PO ONE (12:00)
[2019-04-24 12:58] VITALS: BP 105/64
== END 2019-04-24 12:30 | disposition home health service (06) | DRG 330 ==
LOC: ER 12:11 → EH 19:52 → 5 21:26 → 3S 04-14 14:02
PROVIDERS: ADMIT Internal Medicine; ATTEND Hospitalist
PROC: 0D988ZZ Drainage of Small Intestine, Via Natural or Artificial Opening Endoscopic (ICD-10-PCS; 2019-04-09)
PROC: 0D1B0ZK Bypass Ileum to Ascending Colon, Open Approach (ICD-10-PCS; principal; 2019-04-09 14:00)
PROC: 2W13X6Z Compression of Abdominal Wall using Pressure Dressing (ICD-10-PCS; 2019-04-14)
PROC: 0JQ80ZZ Repair Abdomen Subcutaneous Tissue and Fascia, Open Approach (ICD-10-PCS; 2019-04-20)
PROC: 3E1M38Z Irrigation of Peritoneal Cavity using Irrigating Substance, Percutaneous Approach (ICD-10-PCS; 2019-04-20)
PROC: 30233N1 Transfusion of Nonautologous Red Blood Cells into Peripheral Vein, Percutaneous Approach (ICD-10-PCS; 2019-04-21)
DX: K56.690 Other partial intestinal obstruction (principal); C78.6 Secondary malignant neoplasm of retroperitoneum and peritoneum; C79.89 Secondary malignant neoplasm of other specified sites; C23 Malignant neoplasm of gallbladder; R18.0 Malignant ascites; E87.1 Hypo-osmolality and hyponatremia; T81.31XA Disruption of external operation (surgical) wound, not elsewhere classified, initial encounter; B96.20 Unspecified Escherichia coli [E. coli] as the cause of diseases classified elsewhere; B95.2 Enterococcus as the cause of diseases classified elsewhere; B96.1 Klebsiella pneumoniae [K. pneumoniae] as the cause of diseases classified elsewhere; E87.6 Hypokalemia; I10 Essential (primary) hypertension; D64.9 Anemia, unspecified; M79.89 Other specified soft tissue disorders; E11.8 Type 2 diabetes mellitus with unspecified complications; J44.9 Chronic obstructive pulmonary disease, unspecified; F41.1 Generalized anxiety disorder; Y83.8 Other surgical procedures as the cause of abnormal reaction of the patient, or of later complication, without mention of misadventure at the time of the procedure; Y92.230 Patient room in hospital as the place of occurrence of the external cause; Z79.84 Long term (current) use of oral hypoglycemic drugs; Z79.899 Other long term (current) drug therapy; Z79.51 Long term (current) use of inhaled steroids
CPT/HCPCS: 36415; 36430; 71045; 71046; 74018; 74176; 74177; 790; 80048; 80053; 81001; 82962; 83605; 83690; 83735; 84100; 84134; 84478; 85025; 85027; 85610; 86850; 86900; 86901; 86920; 87040; 87070; 87075; 87077; 87186; 87205; 93005; 93010; 93970; 94640; 94668; 94799; 96361; 96374; 96375; 99285; C1781; C9113; J0131; J1100; J1170; J1642; J1644; J1815; J1885; J1940; J2060; J2185; J2250; J2270; J2405; J2704; J2765; J3010; J3480; J3490; J7030; J7042; J7120; J7121; J7614; P9016; P9047

== ENCOUNTER 2019-04-27 16:47 | Observation (INO) | payer OTHER ==
[2019-04-27 17:31] LABS: HEMATOCRIT 33.3 % (36.0-47.0); HEMOGLOBIN 10.9 g/dL (12.0-15.5); MEAN CORPUSCULAR HEMOGLOBIN 30.4 pg (27.0-33.4); MEAN CORPUSCULAR HGB CONC 32.9 g/dL (32.0-36.0); MEAN CORPUSCULAR VOLUME 93 fl (80-97); PLATELET COUNT 225 10^3/uL (150-450); RED BLOOD COUNT 3.59 10^6/uL (3.72-5.28); RED CELL DISTRIBUTION WIDTH 15.9 % (11.5-14.0); WHITE BLOOD COUNT 29.8 10^3/uL (4.0-10.5)
[2019-04-27 17:36] LABS: VENOUS BLOOD HCO3 24.8 mmol/L (20-32); VENOUS BLOOD PCO2 37.2 mmHg (35-63); VENOUS BLOOD PH 7.44 (7.30-7.42)
[2019-04-27 17:44] LABS: INTERNATIONAL RATION (INR) 1.39; PROTHROMBIN TIME 17.2 SEC (11.4-15.4)
[2019-04-27 17:46] LABS: A TYPE INFLUENZA AG NEGATIVE (NEGATIVE); B INFLUENZA AG NEGATIVE (NEGATIVE)
[2019-04-27 17:54] LABS: ABSOLUTE LYMPHOCYTES# (MANUAL) 0.3 10^3/uL (0.5-4.7); BASOPHILS % (MANUAL) 0 % (0-2); EOSINOPHILS % (MANUAL) 0 % (0-6); LYMPHOCYTES % (MANUAL) 1 % (13-45); MONOCYTES % (MANUAL) 0 % (3-13); SEGMENTED NEUTROPHILS % (MAN) 99 % (42-78); TOTAL CELLS COUNTED 100
[2019-04-27 17:56] LABS: ANISOCYTOSIS SLIGHT; OVALOCYTES SLIGHT; PLATELET COMMENT ADEQUATE; POIKILOCYTOSIS SLIGHT
--- NOTE | 2019-04-27 18:06 | ER Document Report ---
ED General - General Chief Complaint: Fever Stated Complaint: ABDOMINAL PAIN Time Seen by Provider: 04/27/19 17:22 Primary Care Provider: JASWANT EDWARDS MD [Primary Care Provider] - Follow up as needed Notes: HPI: 64-year-old female that presents today with a fever and some abdominal pain. Patient has a complicated past medical history of malignant gallbladder cancer, COPD, anxiety, diabetes, followed here by the local oncologist. 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 Patient presents stating she started to have a fever last night with some abdominal discomfort. She denies any vomiting. She is unsure whether or not she had a bowel movement. She denies any runny nose, congestion, cough, or shortness of breath. She denies any headache or sore throat. She states she has had some bilateral lower extremity swelling since she was discharged. Temperature 102.1. Patient is an active chemotherapy patient. She supposedly last had chemotherapy around 3 weeks ago. ROS: See HPI All other review of systems reviewed and otherwise negative Reviewed vital signs and nursing note as charted by RN. PHYSICAL EXAM: CONSTITUTIONAL: Alert and oriented and responds appropriately to questions including the month, day, and president. She does believe it is 2013. HEAD: Normocephalic; atraumatic EYES: PERRL; Conjunctivae clear, sclerae non-icteric ENT: Normal nose; no rhinorrhea; moist mucous membranes; pharynx without lesions noted NECK: Supple without meningismus; non-tender; no cervical lymphadenopathy, no masses CARD: Regular rate and rhythm; no murmurs; symmetric distal pulses RESP: Normal chest excursion without splinting or tachypnea; breath sounds clear and equal bilaterally; no wheezes, no rhonchi, no rales ABD/GI: Wound VAC in place. Bowel sounds are present. Some minimal erythema around the edges of the wound VAC. No focal tenderness to palpation BACK: The back appears normal and is non-tender to palpation EXT: Normal ROM in all joints; non-tender to palpation; bilateral lower extremity edema, left greater than right. No tenderness to palpation of the l ower extremities SKIN: No acute lesions noted NEURO: CN 2-12 intact; 5/5 bilateral upper and lower extremity strength with sensation intact to light touch PSYCH: The patient's mood and manner are appropriate. Grooming and personal hygiene are appropriate. TRAVEL OUTSIDE OF THE [place] IN LAST 30 DAYS: No - Related Data Allergies/Adverse Reactions: Penicillins Adverse Reaction (Severe, Verified 04/05/19 13:09) WHEEZE metronidazole [From Flagyl] Adverse Reaction (Verified 04/05/19 13:09) Home Medications: Avalin, Amlodipine, Albuterol, Lasix - not a comprehensive list per patient Past Medical History - Social History Smoking Status: Never Smoker Frequency of alcohol use: None Drug Abuse: None Family History: Hypertension Patient has suicidal ideation: No Patient has homicidal ideation: No - Past Medical History Cardiac Medical History: Reports: Hx Hypertension Denies: Hx Coronary Artery Disease, Hx Heart Attack Pulmonary Medical History: Reports: Hx Bronchitis, Hx COPD, Hx Pneumonia Denies: Hx Asthma Neurological Medical History: Denies: Hx Cerebrovascular Accident, Hx Seizures Endocrine Medical History: Reports: Hx Diabetes Mellitus Type 2 - borderline Renal/ Medical History: Denies: Hx Peritoneal Dialysis GI Medical History: Denies: Hx Diverticulitis Musculoskeletal Medical History: Denies Hx Arthritis Past Surgical History: Reports: Hx Cholecystectomy, Hx Orthopedic Surgery - left foot/ titanium plates placed, Hx Tonsillectomy, Other - Radical cholecystectomy, liver resection, periportal lymphadenectomy. Denies: Hx Hysterectomy - Immunizations Hx Diphtheria, Pertussis, Tetanus Vaccination: Yes Hx Pneumococcal Vaccination: 02/06/13 Physical Exam - Vital signs Vitals: Pulse Ox 95 04/27/19 16:48 Course - Re-evaluation Re-evalutation: 04/27/19 18:20 Given the history and physical examination I did consult general surgery and order basic labs, influenza, lactate, blood cultures, xray of the chest, left lower extremity dopplar, and ct scan of the abdomen and pelvis. There was concern about the possibility of COVID at triage given that her son was previously in [facility], [place] and returned recently. However the patient has been here in the hospital into the last 3 days. Patient has no cough or shortness of breath. She has had no diarrhea and denies vomiting currently. I did consult the general surgeon who came and evaluated the patient. He states that he would like me to cancel the CT scan of the abdomen and pelvis. He states that the patient is not an operative candidate. He states that the bowel surgery was just secondary to patient's discomfort. He states that he will consult on the patient regarding the wound VAC but believe that the patient would need admission to the hospitalist. He does recommend broad-spectrum antibiotics which I have provided. Patient has a penicillin allergy. I have ordered clindamycin as well as ceftazidime instead of cefotaxime since we do not have that medication after consultation with the pharmacist. Fluids are infusing. WBC as recorded. We have called and Doppler ultrasound and cath urine and x-ray are pending. 04/27/19 18:30 I did call and speak directly to the on-call oncologist Dr. Kerns. She is very familiar with this patient and family. She states that she agrees that no operative intervention will be performed. She states that the patient and family are very reasonable and understand this. She states that she believes that the patient should be transitioned to hospice. She is uncomfortable with the elevated white blood cell count and the fever obviously. I will call and speak with the . 04/27/19 18:45 I had a long discussion with the patient's . I explained that the urine analysis is still pending but we will treat with Levaquin and clindamycin if the urine analysis is positive or negative. I have offered admission to the . He states he would have require/request the patient to be treated at home if possible. X ray of the chest as recorded. Pt again has no cough or sob. I have called and spoken to Dr. España once again. She is comfortable with at home treatment. We will still perform the Doppler ultrasound to assess if this is possibly the cause of the fever. She however does not believe anticoagulation would be appropriate for the patient given the recent surgery and current clinical status. Family understands to follow-up with home health for possible hospice discussion. Supposedly the patient does not need to be DNR/DNI to initiate hospice. Dr. España states that she will be able to see the patient on Monday in clinic. She is already written for the Levaquin today. She does recommend starting the patient also on clindamycin. I believe this is reasonable. Family understands that we do not expect the patient to improve markedly with the do request the patient be home. I believe that this is reasonable. Regarding the son's travel, he did return from [facility], [place] from the 1 week ago secondary to mom's condition. He and the family have had no symptoms. Patient and family denies any cough or shortness of breath. Supposedly no fellow soldiers have been diagnosed. Spoke with the radiologist about the x-ray as I do see some blunting of the lower lung angles. I do not see any obvious infiltrates. Patient's recent CT scan did have pleural effusion. Patient denies any cough or shortness of breat h. Doppler ultrasound is currently with the patient. Blood cultures have been sent. Lactic acid as recorded. Given the travel history, immunocompromised state, we will order the COVID testing. 04/27/19 19:36 Patient has received fluid and the temperature has improved. Patient is still tachycardic at 120. Reviewed the EKG which shows some sinus tachycardia with may be some flattening T waves laterally. Discussion with the once again, we will admit the patient for further evaluation as we try to set up hospice services. Doppler ultrasound and urine analysis are still pending. - Vital Signs Vital signs: Temp Pulse Resp BP Pulse Ox 98.7 F 29 H 119/59 L 98 04/27/19 19:07 04/27/19 19:01 04/27/19 19:01 04/27/19 19:01 - Laboratory Result Diagrams: 04/27/19 17:00 04/27/19 17:00 Laboratory results interpreted by me: 04/27/19 04/27/19 04/27/19 17:00 17:00 17:00 WBC 29.8 H RBC 3.59 L Hgb 10.9 L Hct 33.3 L RDW 15.9 H Seg Neuts % (Manual) 99 H Lymphocytes % (Manual) 1 L Monocytes % (Manual) 0 L Abs Neuts (Manual) 29.5 H Abs Lymphs (Manual) 0.3 L Abs Monocytes (Manual) 0.0 L PT 17.2 H VBG pH Sodium 130.4 L Potassium 3.5 L BUN 6 L Creatinine 0.49 L Glucose 113 H Calcium 7.8 L AST 55 H Alkaline Phosphatase 277 H Total Protein 5.4 L Albumin 2.5 L 04/27/19 17:00 WBC RBC Hgb Hct RDW Seg Neuts % (Manual) Lymphocytes % (Manual) Monocytes % (Manual) Abs Neuts (Manual) Abs Lymphs (Manual) Abs Monocytes (Manual) PT VBG pH 7.44 H Sodium Potassium BUN Creatinine Glucose Calcium AST Alkaline Phosphatase Total Protein Albumin Discharge - Discharge Clinical Impression: Fever Qualifiers: Fever type: unspecified Qualified Code(s): R50.9 - Fever, unspecified Leukocytosis Qualifiers: Leukocytosis type: unspecified Qualified Code(s): D72.829 - Elevated white blood cell count, unspecified Disposition: ADMITTED INPATIENT Admitting Provider: Rena (Hospitalist) Additional Instructions: Come back immediately for any vomiting, worsening pain, shortness of breath, or any other acute problems. Please make sure to call home health and initiate hospice as we have discussed and take the antibiotics as prescribed. You can follow-up with the oncology team on Monday as we have set up for you. Prescriptions: Clindamycin HCl 300 mg PO Q6H #28 capsule Referrals: JASWANT EDWARDS MD [Primary Care Provider] - Follow up as needed
[2019-04-27] MEDS ORDERED: CLINDAMYCIN 600 MG/D5W RTU 600 MG/50 ML RTUPB IV ONE (18:08)
[2019-04-27 18:11] LABS: ALBUMIN 2.5 g/dL (3.5-5.0); ALKALINE PHOSPHATASE 277 U/L (38-126); ANION GAP 5 (5-19); ASPARTATE AMINO TRANSFERASE 55 U/L (14-36); BLOOD UREA NITROGEN 6 mg/dL (7-20); CALCIUM 7.8 mg/dL (8.4-10.2); CARBON DIOXIDE 26 mmol/L (22-30); CHLORIDE 99 mmol/L (98-107); GLUCOSE 113 mg/dL (75-110); POTASSIUM 3.5 mmol/L (3.6-5.0); TOTAL PROTEIN 5.4 g/dL (6.3-8.2)
[2019-04-27] MEDS ORDERED: CEFTAZIDIME INJ 1 GM VIAL IV ONE (18:22)
[2019-04-27] MEDS ORDERED: NORMAL SALINE 1000 ML 1,000 ML IV ONE ×2 (18:26→18:58)
[2019-04-27] MEDS ORDERED: CALCIUM GLUCONATE 1000 MG/10 ML INJ IV ONE ×2 (18:27→21:37)
[2019-04-27] MEDS ORDERED: ACETAMINOPHEN 325 MG TABLET PO ONE (18:42)
--- NOTE | 2019-04-27 18:57 | RADIOLOGY REPORT (SQ) ---
EXAM DESCRIPTION: CHEST SINGLE VIEW COMPLETED DATE/TIME: 04/27/2019 6:35 pm REASON FOR STUDY: 6; fever; post op COMPARISON: Chest x-ray 04/22/2019. EXAM PARAMETERS: NUMBER OF VIEWS: One view. TECHNIQUE: Single frontal radiographic view of the chest acquired. RADIATION DOSE: NA LIMITATIONS: Patient positioning. FINDINGS: LUNGS AND PLEURA: The patient is rotated. Airspace opacities are noted at the bilateral l jeff bases. There is a small left pleural effusion. No pneumothorax. MEDIASTINUM AND HILAR STRUCTURES: Contour normal. HEART AND VASCULAR STRUCTURES: The heart is mildly enlarged. There is no overt vascular congestion. BONES: No acute findings. HARDWARE: There is a left-sided Port-A-Cath with the tip overlying the region of the SVC. IMPRESSION: Mild cardiomegaly. Small left pleural effusion. Bibasilar airspace opacities, may be s econdary to atelectasis or pneumonia. TECHNICAL DOCUMENTATION: JOB ID: [id number] 2010 [employer]- All Rights Reserved Reading location - IP/workstation name: [email or web address]
--- NOTE | 2019-04-27 19:55 | EKG REPORT ---
SEVERITY:- BORDERLINE ECG - SINUS TACHYCARDIA PROBABLE LEFT ATRIAL ABNORMALITY BORDERLINE T ABNORMALITIES, DIFFUSE LEADS : Confirmed by: Claire Pagan MD 27-Apr-2019 19:55:02
--- NOTE | 2019-04-27 20:49 | RADIOLOGY REPORT (SQ) ---
EXAM DESCRIPTION: Left lower extremity venous duplex exam CLINICAL HISTORY: 64 years Female; 6; left leg edema TECHNIQUE: Multiple grayscale sonographic images of the leg were obtained utilizing a high-frequency linear array transducer supplemented with color Doppler, compression and augmentation techniques. COMPARISON: None. FINDINGS: Left leg veins: Normal compression and augmentation is identified from the level of the common femoral vein to the calf veins. Normal color flow and spectral waveforms. Subcutaneous edema is present in the lower calf. No popliteal cyst The right common femoral vein is patent with normal color flow and compression. IMPRESSION: No sonographic evidence for lower extremity deep venous thrombosis. The day camp unit leader gave the preliminary results to the charge nurse 04/27/2019 at 2020 hours
[2019-04-27] MEDS ORDERED: MAG HYDROX/AL HYDROX/SIMETH SUSP 30 ML UDCUP PO PRN (20:53)
[2019-04-27] MEDS ORDERED: PROMETHAZINE HCL INJ 25 MG/1 ML VIAL IV PRN (20:53)
[2019-04-27] MEDS ORDERED: MAGNESIUM HYDROXIDE SUSP 30 ML UDCUP PO PRN (20:53)
[2019-04-27] MEDS ORDERED: NICOTINE 21 MG/24 HR PATCH.TD24 TD PRN (21:02)
[2019-04-27] MEDS ORDERED: GUAIFENESIN SYRP 200 MG/10 ML UDC PO PRN (21:02)
[2019-04-27] MEDS ORDERED: MORPHINE SULFATE 10 MG/ML INJ IV PRN ×2 (21:02)
[2019-04-27] MEDS ORDERED: LEVALBUTEROL HCL NEB 0.63 MG/3 ML AMPUL NEB PRN (21:02)
[2019-04-27] MEDS ORDERED: DEXTROSE 50%-WATER 25 GM/50 ML DISP.SYRIN IV PRN ×2 (21:10)
[2019-04-27] MEDS ORDERED: DEXTROSE 40% GEL 15 GM TUBE PO PRN ×2 (21:10)
[2019-04-27] MEDS ORDERED: GLUCAGON,HUMAN RECOMB 1 MG INJ IM PRN (21:10)
[2019-04-27] MEDS: MORPHINE SULFATE 10 MG/ML INJ IV PRN (22:06)
[2019-04-27] MEDS: HEPARIN SOD (PORCINE) 5,000 UNIT/ML 1 ML VIAL SUBCUT SCH (22:07)
[2019-04-27] MEDS: FAMOTIDINE INJ/PF 20 MG/2 ML SDV IV SCH (22:07)
[2019-04-27] MEDS: INSULIN REG, HUMAN 100 UNIT/ML 3 ML VIAL (PYX) SUBCUT SCH (22:11)
[2019-04-27] MEDS: POTASSI CL 20 MEQ/NS 1L 1,000 ML IV PRN (23:25)
[2019-04-27] MEDS: LEVALBUTEROL HCL NEB 1.25 MG/3 ML AMPUL NEB SCH (23:38)
[2019-04-27] MEDS: IPRATROPIUM BROMIDE 0.02% NEB 0.5 MG/2.5 ML AMPUL NEB SCH (23:38)
--- NOTE | 2019-04-28 00:50 | PDOC H&P ---
History of Present Illness Admission Date/PCP: 04/27/2019 20:22 JASWANT EDWARDS MD Patient complains of: Abdominal pain History of Present Illness: CARMEN RUSSO is a 64 year old female who presented to the emergency room with a 1 day history of abdominal pain. She admits to the gradual onset and progressive worsening of constant upper abdominal pain without radiation, accompanied by nausea without vomiting and associated with a fever as high as 102.1 F at home over the last 24 hours. She denies other associated or accompanying signs and symptoms. She admits prior similar episodes related to her stage IV gallbladder cancer. She has not identified any aggravating or ameliorating factors for her abdominal pain. In the emergency room she was found to be febrile and tachycardic with a marked leukocytosis. She was subsequently admitted to observation status for further evaluation and treatment overnight with case management social worker to arrange for home health IV antibiotic infusions/palliative care/hospice care per the wishes of the patient and family after discussion tomorrow. Past Medical History Cardiac Medical History: Reports: Hypertension Denies: Coronary Artery Disease, Myocardial Infarction Pulmonary Medical History: Reports: Bronchitis, Chronic Obstructive Pulmonary Disease (COPD), Pneumonia Denies: Asthma EENT Medical History: Denies: Cataracts, Ears - Hearing aids Neurological Medical History: Denies: Hemorrhagic CVA, Ischemic CVA, Seizures Endocrine Medical History: Reports: Diabetes Mellitus Type 2 - borderline Denies: Diabetes Mellitus Type 1, Hyperthyroidism, Hypothyroidism Renal/ Medical History: Denies: Chronic Kidney Disease, Nephrolithiasis Malignancy Medical History: Reports: Other - Stage IV (remotely metastatic) gallbladder cancer GI Medical History: Denies: Cirrhosis, Crohn's Disease, Diverticulitis, Hepatitis, Hiatal Hernia, Ulcerative Colitis Musculoskeltal Medical History: Denies: Arthritis, Gout Skin Medical History: Denies: Eczema, Psoriasis Psychiatric Medical History: Denies: Alcohol Dependency, Substance Abuse, Tobacco Dependency Traumatic Medical History: Reports: None Hematology: Reports: Anemia - Chronic Denies: Bleeding Tendencies Infectious Medical History: Reports: None Past Surgical History Past Surgical History: Recent palliative surgery for a small bowel obstruction performed by Dr. Benjamin Michaud. Past Surgical History: Reports: Cholecystectomy, Orthopedic Surgery - left foot/ titanium plates placed, Tonsillectomy, Other - Radical cholecystectomy, liver resection, periportal lymphadenectomy Social History Information Source: Patient Lives with: Spouse/Significant other Smoking Status: Former Smoker Electronic Cigarette use?: No Frequency of Alcohol Use: None Hx Recreational Drug Use: No Drugs: None Hx Prescription Drug Abuse: No - Advance Directive Resuscitation Status: Full Code Surrogate healthcare decision maker:: Chris Russo Family History Family History: DM, Malignancy. denies: CAD, Hypertension Parental Family History Reviewed: Yes Children Family History Reviewed: No Sibling(s) Family History Reviewed.: Yes Medication/Allergy Home Medications: Albuterol Sulfate [Albuterol Sulfate 2.5mg/3 mL] 1 puff IH Q12 01/14/12 Metformin HCl [Metformin HCl ER] 500 mg PO BIDBS 03/06/18 Fluticasone/Salmeterol [Advair 250-50 Diskus 14 Dose/Diskus] 1 inh IH Q12 #1 inhaler 04/04/18 Irbesartan/Hydrochlorothiazide [Avalide 300-12.5 mg Tablet] 1 each PO DAILY #30 tablet 04/04/18 Tiotropium [place] [Spiriva Respimat] 2 puff IH DAILY #1 mist.inhal 04/04/18 Ondansetron HCl [Zofran 8 mg Tablet] 8 mg PO Q8HP PRN 05/28/18 Alprazolam 1 mg PO Q12 03/23/19 Chemo: Cisplatin/Gemcitabine 1 each IV ASDIR PRN 03/23/19 Amlodipine Besylate [Norvasc 5 mg Tablet] 2.5 mg PO DAILY 03/24/19 Hydrocodone/Acetaminophen [[place] 5-325 mg Tablet] 1 tab PO Q6HP PRN 04/05/19 Lorazepam [Ativan 1 mg Tablet] 1 mg PO Q6HP PRN 04/05/19 Pantoprazole Sodium [Protonix [address] Tablet] 40 mg PO QAM 04/05/19 Furosemide [Lasix 20 mg Tablet] 20 mg PO DAILY 21 Days #21 tablet 04/24/19 Hydrocodone/Acetaminophen [[place] 5-325 Tablet] 1 each PO Q6HP PRN #30 tablet 04/24/19 Clindamycin HCl 300 mg PO Q6H #28 capsule 04/27/19 Allergies/Adverse Reactions: Penicillins Adverse Reaction (Severe, Verified 04/05/19 13:09) WHEEZE metronidazole [From Flagyl] Adverse Reaction (Verified 04/05/19 13:09) Review of Systems Constitutional: PRESENT: as per HPI, fever(s). ABSENT: chills Eyes: ABSENT: visual disturbances, other - Eye pain Ears: ABSENT: hearing changes, other - Ear pain Nose, Mouth, and Throat: ABSENT: headache(s), sore throat Cardiovascular: ABSENT: chest pain, palpitations Respiratory: ABSENT: cough, dyspnea Gastrointestinal: PRESENT: as per HPI, abdominal pain, nausea. ABSENT: constipation, diarrhea, vomiting Genitourinary: ABSENT: dysuria, hematuria Musculoskeletal: ABSENT: back pain, joint swelling Integumentary: ABSENT: pruritus, rash Neurological: ABSENT: confusion, convulsions, focal weakness, memory loss, syncope Psychiatric: ABSENT: anxiety, depression Endocrine: ABSENT: cold intolerance, heat intolerance Hematologic/Lymphatic: ABSENT: easy bleeding, easy bruising Allergic/Immunologic: ABSENT: seasonal rhinorrhea Physical Exam Vital Signs: Temp Pulse Resp BP Pulse Ox 98.7 F 29 H 119/59 L 98 04/27/19 19:07 04/27/19 19:01 04/27/19 19:01 04/27/19 19:01 Intake & Output 04/25/19 04/26/19 04/27/19 23:59 23:59 23:59 Weight 77.1 kg General appearance: PRESENT: cooperative, mild distress - Secondary to abdominal discomfort Head exam: PRESENT: atraumatic, normocephalic Eye exam: PRESENT: conjunctiva pink. ABSENT: conjunctival injection, scleral icterus Ear exam: PRESENT: normal external ear exam. ABSENT: bleeding, drainage Mouth exam: PRESENT: dry mucosa, neck supple Neck exam: ABSENT: thyromegaly, tracheal deviation Respiratory exam: PRESENT: clear to auscultation christian, symmetrical, unlabored Cardiovascular exam: PRESENT: RRR, tachycardia. ABSENT: clicks, gallop, rubs Pulses: PRESENT: normal radial pulses, normal dorsalis pedis pul Vascular exam: PRESENT: normal capillary refill. ABSENT: pallor GI/Abdominal exam: PRESENT: normal bowel sounds, soft, tenderness - Moderate tenderness to palpation throughout the upper abdomen Rectal exam: PRESENT: deferred Extremities exam: ABSENT: joint swelling, pedal edema Musculoskeletal exam: ABSENT: deformity, dislocation Neurological exam: PRESENT: alert, oriented to person, oriented to place, oriented to time, oriented to situation, CN II-XII grossly intact. ABSENT: motor sensory deficit Psychiatric exam: PRESENT: appropriate affect, normal mood Skin exam: PRESENT: dry, intact, warm. ABSENT: jaundice, rash, urticaria Results Laboratory Results: 04/27/19 17:00 04/27/19 17:00 04/27/19 04/27/19 04/27/19 17:00 17:00 17:00 WBC 29.8 H RBC 3.59 L Hgb 10.9 L Hct 33.3 L MCV 93 MCH 30.4 MCHC 32.9 RDW 15.9 H Plt Count 225 Seg Neutrophils % Not Reportable VBG pH 7.44 H VBG pCO2 37.2 VBG HCO3 24.8 VBG Base Excess 1.0 Sodium 130.4 L Potassium 3.5 L Chloride 99 Carbon Dioxide 26 Anion Gap 5 BUN 6 L Creatinine 0.49 L Est GFR ( Amer) > 60 Glucose 113 H Lactic Acid Calcium 7.8 L Total Bilirubin 1.0 AST 55 H Alkaline Phosphatase 277 H Total Protein 5.4 L Albumin 2.5 L 04/27/19 17:00 WBC RBC Hgb Hct MCV MCH MCHC RDW Plt Count Seg Neutrophils % VBG pH VBG pCO2 VBG HCO3 VBG Base Excess Sodium Potassium Chloride Carbon Dioxide Anion Gap BUN Creatinine Est GFR ( Amer) Glucose Lactic Acid 1.3 Calcium Total Bilirubin AST Alkaline Phosphatase Total Protein Albumin Impressions: Chest X-Ray 04/27/19 18:08 IMPRESSION: Mild cardiomegaly. Small left pleural effusion. Bibasilar airspace opacities, may be secondary to atelectasis or pneumonia. Assessment and Plan - Diagnosis (1) Abdominal pain Qualifiers: Abdominal location: upper abdomen, unspecified Qualified Code(s): R10.10 - Upper abdominal pain, unspecified Is this a current diagnosis for this admission?: Yes (2) Nausea and vomiting Qualifiers: Vomiting type: unspecified Vomiting Intractability: non-intractable Qualified Code(s): R11.2 - Nausea with vomiting, unspecified Is this a current diagnosis for this admission?: Yes (3) Fever Qualifiers: Fever type: unspecified Qualified Code(s): R50.9 - Fever, unspecified Is this a current diagnosis for this admission?: Yes (4) Leukocytosis Qualifiers: Leukocytosis type: unspecified Qualified Code(s): D72.829 - Elevated white blood cell count, unspecified Is this a current diagnosis for this admission?: Yes (5) Hypokalemia Is this a current diagnosis for this admission?: Yes (6) Hyponatremia Is this a current diagnosis for this admission?: Yes (7) Gallbladder cancer Is this a current diagnosis for this admission?: Yes (8) COPD (chronic obstructive pulmonary disease) Qualifiers: COPD type: unspecified COPD Qualified Code(s): J44.9 - Chronic obstructive pulmonary disease, unspecified Is this a current diagnosis for this admission?: Yes - Plan Summary Summary: Patient will be admitted to the medical floor where she will receive routine supportive and symptomatic cares. A surgical consultation with Dr. Michaud has been obtained. She will receive IV antibiotics utilizing Fortaz and clindamycin. She will receive morphine sulfate 2 to 4 mg IV every 2 hours as needed for pain control. She will receive Phenergan 12.5 mg IV every 4 hours as needed for nausea. A case management social worker consultation will be obtained for possible hospice care. - Time Time Spent with patient: 15-24 minutes Medications reviewed and adjusted accordingly: Yes Anticipated discharge: Hospice - Inpatient Certification Based on my medical assessment, after consideration of the patient's comorbidities, presenting symptoms, or acuity I expect that the services needed warrant INPATIENT care.: Yes I certify that my determination is in accordance with my understanding of Medicare's requirements for reasonable and necessary INPATIENT services [42 CFR 412.3e].: Yes Medical Necessity: Failure to Improve With Outpatient Therapy, Need Close Monitoring Due to Risk of Patient Decompensation, Need For IV Fluids, Need for Pain Control, Need for IV Antibiotics, Risk of Complication if Not Cared For in Hospital
[2019-04-28] MEDS: POTASSI CL 20 MEQ/NS 1L 1,000 ML IV PRN (04:44)
[2019-04-28] MEDS: MORPHINE SULFATE 10 MG/ML INJ IV PRN ×2 (04:47→13:57)
[2019-04-28 05:33] LABS: HEMATOCRIT 28.1 % (36.0-47.0); HEMOGLOBIN 9.6 g/dL (12.0-15.5); MEAN CORPUSCULAR HEMOGLOBIN 31.3 pg (27.0-33.4); MEAN CORPUSCULAR HGB CONC 34.1 g/dL (32.0-36.0); MEAN CORPUSCULAR VOLUME 92 fl (80-97); PLATELET COUNT 184 10^3/uL (150-450); RED BLOOD COUNT 3.05 10^6/uL (3.72-5.28); RED CELL DISTRIBUTION WIDTH 15.8 % (11.5-14.0)
[2019-04-28 05:52] LABS: ALBUMIN 1.9 g/dL (3.5-5.0); ALKALINE PHOSPHATASE 216 U/L (38-126); ASPARTATE AMINO TRANSFERASE 37 U/L (14-36); BILIRUBIN,DIRECT 0.1 mg/dL (0.0-0.4); BLOOD UREA NITROGEN 6 mg/dL (7-20); CALCIUM 7.4 mg/dL (8.4-10.2); CARBON DIOXIDE 22 mmol/L (22-30); CHLORIDE 106 mmol/L (98-107); GLUCOSE 73 mg/dL (75-110); POTASSIUM 3.6 mmol/L (3.6-5.0); TOTAL PROTEIN 4.2 g/dL (6.3-8.2)
[2019-04-28 05:58] LABS: ANION GAP 5 (5-19)
[2019-04-28 06:30] LABS: WHITE BLOOD COUNT 33.9 10^3/uL (4.0-10.5)
--- NOTE | 2019-04-28 06:30 | PDOC CONSULTATION ---
Consultation Consult Date: 04/28/19 Attending physician:: VALENTÍN STEVENS Provider Consulted: MARLENI DESHPANDE Consult reason:: fever, metastaic gallbladder cancer History of Present Illness Admission Date/PCP: 04/27/19 21:21 JASWANT EDWARDS MD History of Present Illness: CARMEN RUSSO is a 64 year old femaleHPI: that presents today with a fever and some abdominal pain. Patient has a complicated past medical history of malignant gallbladder cancer, COPD, anxiety, diabetes, followed here by the local oncologist. 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 Patient presents stating she started to have a fever last night with some abdominal discomfort. She denies any vomiting. She is unsure whether or not she had a bowel movement. She denies any runny nose, congestion, cough, or shortness of breath. She denies any headache or sore throat. She states she has had some bilateral lower extremity swelling since she was discharged. Temperature 102.1. Patient is an active chemotherapy patient. She supposedly last had chemotherapy around 3 weeks ago. pt states she is passing flatus, Past Medical History Cardiac Medical History: Reports: Hypertension Denies: Coronary Artery Disease, Myocardial Infarction Pulmonary Medical History: Reports: Bronchitis, Chronic Obstructive Pulmonary D isease (COPD), Pneumonia Denies: Asthma EENT Medical History: Denies: Cataracts, Ears - Hearing aids Neurological Medical History: Denies: Hemorrhagic CVA, Ischemic CVA, Seizures Endocrine Medical History: Reports: Diabetes Mellitus Type 2 - borderline Denies: Diabetes Mellitus Type 1, Hyperthyroidism, Hypothyroidism Renal/ Medical History: Denies: Chronic Kidney Disease, Nephrolithiasis Malignancy Medical History: Reports: Other - Stage IV (remotely metastatic) gallbladder cancer GI Medical History: Denies: Cirrhosis, Crohn's Disease, Diverticulitis, Hepatitis, Hiatal Hernia, Ulcerative Colitis Musculoskeltal Medical History: Denies: Arthritis, Gout Skin Medical History: Denies: Eczema, Psoriasis Psychiatric Medical History: Reports: Depression Denies: Alcohol Dependency, Substance Abuse, Tobacco Dependency Traumatic Medical History: Reports: None Hematology: Reports: Anemia - Chronic Denies: Bleeding Tendencies Infectious Medical History: Reports: None Past Surgical History Past Surgical History: Reports: Cholecystectomy, Orthopedic Surgery - left foot/ titanium plates placed, Tonsillectomy, Other - Radical cholecystectomy, liver resection, periportal lymphad Denies: Hysterectomy Social History Lives with: Spouse/Significant other Smoking Status: Former Smoker Electronic Cigarette use?: No Frequency of Alcohol Use: None Hx Recreational Drug Use: No Drugs: None Hx Prescription Drug Abuse: No - Advance Directive Resuscitation Status: Full Code Family History Family History: DM, Malignancy. denies: CAD, Hypertension Parental Family History Reviewed: No Children Family History Reviewed: NA Sibling(s) Family History Reviewed.: NA Medication/Allergy Home Medications: Albuterol Sulfate [Albuterol Sulfate 2.5mg/3 mL] 1 puff IH Q12 01/14/12 Metformin HCl [Metformin HCl ER] 500 mg PO BIDBS 03/06/18 Fluticasone/Salmeterol [Advair 250-50 Diskus 14 Dose/Diskus] 1 inh IH Q12 #1 inhaler 04/04/18 Irbesartan/Hydrochlorothiazide [Avalide 300-12.5 mg Tablet] 1 each PO DAILY #30 tablet 04/04/[address] [place] [Spiriva Respimat] 2 puff IH DAILY #1 mist.inhal 04/04/18 Ondansetron HCl [Zofran 8 mg Tablet] 8 mg PO Q8HP PRN 05/28/18 Alprazolam 1 mg PO Q12 03/23/19 Chemo: Cisplatin/Gemcitabine 1 each IV ASDIR PRN 03/23/19 Amlodipine Besylate [Norvasc 5 mg Tablet] 2.5 mg PO DAILY 03/24/19 Hydrocodone/Acetaminophen [[place] 5-325 mg Tablet] 1 tab PO Q6HP PRN 04/05/19 Lorazepam [Ativan 1 mg Tablet] 1 mg PO Q6HP PRN 04/05/19 Pantoprazole Sodium [Protonix [address] Tablet] 40 mg PO QAM 04/05/19 Furosemide [Lasix 20 mg Tablet] 20 mg PO DAILY 21 Days #21 tablet 04/24/19 Hydrocodone/Acetaminophen [[place] 5-325 Tablet] 1 each PO Q6HP PRN #30 tablet 04/24/19 Clindamycin HCl 300 mg PO Q6H #28 capsule 04/27/19 Allergies/Adverse Reactions: Penicillins Adverse Reaction (Severe, Verified 04/05/19 13:09) WHEEZE metronidazole [From Flagyl] Adverse Reaction (Verified 04/05/19 13:09) Review of Systems Constitutional: PRESENT: anorexia, chills, fatigue, fever(s) Eyes: ABSENT: as per HPI, visual disturbances, other Ears: ABSENT: as per HPI, hearing changes, other Nose, Mouth, and Throat: ABSENT: as per HPI, headache(s), mouth pain, sore throat, vertigo, other Breasts: ABSENT: as per HPI, other Cardiovascular: ABSENT: as per HPI, chest pain, dyspnea on exertion, edema, orthropnea, palpitations, other Respiratory: PRESENT: cough Gastrointestinal: PRESENT: abdominal pain, bloating Genitourinary: ABSENT: as per HPI, difficulty urinating, dysuria, hematuria, nocturia, other Musculoskeletal: PRESENT: muscle weakness Integumentary: ABSENT: as per HPI, diaphoresis, erythema, lesions, pruritus, rash, wounds, other Neurological: PRESENT: tremor(s), weakness Psychiatric: ABSENT: as per HPI, anxiety, depression, hallucinations, homidical ideation, suicidal ideation, other Endocrine: ABSENT: as per HPI, cold intolerance, flushing, heat intolerance, menstrual abnormalities, polydipsia, polyphagia, polyuria, other Hematologic/Lymphatic: ABSENT: as per HPI, easy bleeding, easy bruising, lymphadenopathy, other Allergic/Immunologic: ABSENT: as per HPI, seasonal rhinorrhea, other Physical Exam Vital Signs: Temp Pulse Resp BP Pulse Ox 97.5 F 109 H 17 111/53 L 96 04/28/19 00:00 04/28/19 00:00 04/28/19 00:00 04/28/19 00:00 04/28/19 00:00 Intake & Output 04/26/19 04/27/19 04/28/19 06:59 06:59 06:59 Intake Total 3000 Output Total 400 Balance 2600 Weight 78.5 kg General appearance: PRESENT: mild distress, other - chronically ill female, + tremors Head exam: PRESENT: normocephalic Eye exam: PRESENT: EOMI Ear exam: PRESENT: normal external ear exam Mouth exam: PRESENT: moist Teeth exam: PRESENT: poor dentation Neck exam: PRESENT: full ROM Cardiovascular exam: PRESENT: tachycardia Pulses: PRESENT: +2 pedal pulses bilateral Vascular exam: PRESENT: normal capillary refill Breast: PRESENT: Normal GI/Abdominal exam: PRESENT: other - wound vac in place, serous output abd sl tender, no peritoneal irritation Extremities exam: PRESENT: full ROM, +2 edema Musculoskeletal exam: PRESENT: full ROM Neurological exam: PRESENT: awake Psychiatric exam: PRESENT: appropriate affect Focused psych exam: PRESENT: pressured speech Skin exam: PRESENT: dry Results Laboratory Results: 04/28/19 04:59 04/27/19 04/27/19 04/27/19 17:00 17:00 17:00 WBC 29.8 H RBC 3.59 L Hgb 10.9 L Hct 33.3 L MCV 93 MCH 30.4 MCHC 32.9 RDW 15.9 H Plt Count 225 Seg Neutrophils % Not Reportable VBG pH 7.44 H VBG pCO2 37.2 VBG HCO3 24.8 VBG Base Excess 1.0 Sodium 130.4 L Potassium 3.5 L Chloride 99 Carbon Dioxide 26 Anion Gap 5 BUN 6 L Creatinine 0.49 L Est GFR ( Amer) > 60 Glucose 113 H Lactic Acid Calcium 7.8 L Magnesium Total Bilirubin 1.0 AST 55 H Alkaline Phosphatase 277 H Total Protein 5.4 L Albumin 2.5 L 04/27/19 04/27/19 04/27/19 17:00 20:30 23:45 WBC RBC Hgb Hct MCV MCH MCHC RDW Plt Count Seg Neutrophils % VBG pH VBG pCO2 VBG HCO3 VBG Base Excess Sodium Potassium Chloride Carbon Dioxide Anion Gap BUN Creatinine Est GFR ( Amer) Glucose Lactic Acid 1.3 0.9 1.6 Calcium Magnesium Total Bilirubin AST Alkaline Phosphatase Total Protein Albumin 04/28/19 04:59 WBC RBC Hgb Hct MCV MCH MCHC RDW Plt Count Seg Neutrophils % VBG pH VBG pCO2 VBG HCO3 VBG Base Excess Sodium 131.7 L Potassium 3.6 Chloride 106 Carbon Dioxide 22 Anion Gap 5 BUN 6 L Creatinine 0.36 L Est GFR ( Amer) > 60 Glucose 73 L Lactic Acid Calcium 7.4 L Magnesium 1.7 Total Bilirubin 1.0 AST 37 H Alkaline Phosphatase 216 H Total Protein 4.2 L Albumin 1.9 L Impressions: Chest X-Ray 04/27/19 18:08 IMPRESSION: Mild cardiomegaly. Small left pleural effusion. Bibasilar airspace opacities, may be secondary to atelectasis or pneumonia. Venous Doppler Study 04/27/19 18:09 IMPRESSION: No sonographic evidence for lower extremity deep venous thrombosis. The departure clerk gave the preliminary results to the charge nurse 04/27/2019 at 2020 hours Assessment & Plan - Diagnosis (1) Fever Qualifiers: Fever type: unspecified Qualified Code(s): R50.9 - Fever, unspecified Is this a current diagnosis for this admission?: Yes - Plan Summary Plan Summary: pt with widely metastatic gallbladder cancer recent small bowel bypass due to malignant obstruction wound dehiscence and wound closure /P.m. with increasing fevers to 102 reported at home. Denies any vomiting does have some nausea had eaten soft diet prior to her admission to the emergency room. On admission she was noted to have a fever of 102 she has some mild complaints of abdominal pain but nothing more than she had prior to her discharge. She has a wound VAC in place and is draining serous fluid. She has known ascites. White blood count is elevated 29,000. After discussion with the patient she will be admitted to the hospital to be started on IV antibiotics however she has had present interest in hospice. At this point there is no need for a abdominal CT scan, surgery will continue to follow peripherally
[2019-04-28] MEDS: CLINDAMYCIN 900 MG/D5W RTU 900 MG/50 ML RTUPB IV SCH ×2 (06:50→13:13)
[2019-04-28] MEDS: HEPARIN SOD (PORCINE) 5,000 UNIT/ML 1 ML VIAL SUBCUT SCH ×2 (06:57→13:13)
[2019-04-28] MEDS ORDERED: BUDESONIDE NEB 0.5 MG/2 ML AMPUL NEB SCH (08:00)
[2019-04-28] MEDS: INSULIN REG, HUMAN 100 UNIT/ML 3 ML VIAL (PYX) SUBCUT SCH ×2 (08:40→13:08)
[2019-04-28] MEDS: IPRATROPIUM BROMIDE 0.02% NEB 0.5 MG/2.5 ML AMPUL NEB SCH (08:49)
[2019-04-28] MEDS: LEVALBUTEROL HCL NEB 1.25 MG/3 ML AMPUL NEB SCH (08:49)
[2019-04-28] MEDS: FAMOTIDINE INJ/PF 20 MG/2 ML SDV IV SCH (09:44)
[2019-04-28] MEDS ORDERED: DOCUSATE SODIUM 100 MG/10 ML UDC PO SCH (10:00)
[2019-04-28] MEDS ORDERED: CEFTAZIDIME INJ 1 GM VIAL IV SCH (10:00)
--- NOTE | 2019-04-28 13:45 | PDOC DISCHARGE SUMMARY ---
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 A surgical consultation with Dr. Michaud has been obtained. She will receive IV antibiotics utilizing Fortaz and clin damycin. She will receive morphine sulfate 2 to 4 mg IV every 2 hours as needed for pain control. She will receive Phenergan 12.5 mg IV every 4 hours as needed for nausea. A social media assistant consultation will be obtained for possible hospice care. - Additional Information Resuscitation Status: Full Code Discharge Diet: As Tolerated, Other (Comments) - Soft diet Discharge Activity: Activity As Tolerated, Balance Activity w/Rest Referrals: [facility] [Outside] (PATIENT TO BE FOLLOWED BY HEALTH DEPT. ON SELF QUARANTINE AT HOME. ONCE THE HEALTH DEPT. RELEASES PATIENT THEN PATIENT MAY SCHEDULE A FOLLOW UP APPT. WITH PCP.) JASWANT EDWARDS MD [Primary Care Provider] - Follow up as needed Prescriptions: Clindamycin HCl 300 mg PO QID 14 Days #56 capsule Levofloxacin [Levaquin 500 mg Tablet] 500 mg PO DAILY #7 tablet Home Medications: Albuterol Sulfate [Albuterol Sulfate 2.5mg/3 mL] 1 puff IH Q12 01/14/12 Metformin HCl [Metformin HCl ER] 500 mg PO BIDBS 03/06/18 Fluticasone/Salmeterol [Advair 250-50 Diskus 14 Dose/Diskus] 1 inh IH Q12 #1 inhaler 04/04/18 Irbesartan/Hydrochlorothiazide [Avalide 300-12.5 mg Tablet] 1 each PO DAILY #30 tablet 04/04/18 Tiotropium [place] [Spiriva Respimat] 2 puff IH DAILY #1 mist.inhal 02/27/19 Ondansetron HCl [Zofran 8 mg Tablet] 8 mg PO Q8HP PRN 05/28/18 Alprazolam 1 mg PO Q12 03/23/19 Chemo: Cisplatin/Gemcitabine 1 each IV ASDIR PRN 03/23/19 Amlodipine Besylate [Norvasc 5 mg Tablet] 2.5 mg PO DAILY 03/24/19 Hydrocodone/Acetaminophen [[place] 5-325 mg Tablet] 1 tab PO Q6HP PRN 04/05/19 Lorazepam [Ativan 1 mg Tablet] 1 mg PO Q6HP PRN 04/05/19 Pantoprazole Sodium [Protonix [address] Tablet] 40 mg PO QAM 04/05/19 Furosemide [Lasix 20 mg Tablet] 20 mg PO DAILY 21 Days #21 tablet 04/24/19 Clindamycin HCl 300 mg PO QID 14 Days #56 capsule 04/28/19 Docusate Sodium [Colace Udc 100 mg/10 ml Oral Soln] 100 mg PO BID udc 04/28/19 Levofloxacin [Levaquin 500 mg Tablet] 500 mg PO DAILY #7 tablet 04/28/19 Oxycodone HCl [Oxy-Ir 5 mg Tablet] 10 mg PO Q4HP PRN 04/28/19 History of Present Illiness History of Present Illness: CARMEN RUSSO is a 64 year old female who presented to the emergency room with a 1 day history of abdominal pain. She admits to the gradual onset and progressive worsening of constant upper abdominal pain without radiation, accompanied by nausea without vomiting and associated with a fever as high as 102.1 F at home over the last 24 hours. She denies other associated or accompanying signs and symptoms. She admits prior similar episodes related to her stage IV gallbladder cancer. She has not identified any aggravating or ameliorating factors for her abdominal pain. In the emergency room she was found to be febrile and tachycardic with a marked leukocytosis. She was subsequently admitted to observation status for further evaluation and treatment overnight with social media assistant to arrange for home health IV antibiotic infusions/palliative care/hospice care per the wishes of the patient and family after discussion tomorrow. Hospital Course Hospital Course: This extremely pleasant but very unfortunate 64-year-old female was discharged from the hospital by the surgical and hospitalist services several days ago. At that time she was recovering from a complex hospital course that included a small bowel obstruction requiring surgical bypass. The etiology of this is believed to be her metastatic gallbladder cancer with diffuse metastases. Her wound dehisced and she required a closure and is utilizing a VAC dressing for management of wound drainage. She presented with a fever and significantly increased white blood cell count. Chest x-ray suggested the possibility of bilateral basilar infiltrates versus atelectasis. She is already on oxygen because of chronic hypoxic respiratory failure. She had a prolonged hospitalization. She also has a complicated intra-abdominal process. I had a discussion with the patient in her room as well as the patient's over the phone regarding discharged home. The patient understands her prognosis. She would like to spend as much time with her family as possible. The patient's was in agreement with this plan. I told the patient that I would discharge her on dual antibiotic therapy. This will be in addition to the medication regimen that she was just discharged on. Her is a retired nurse and has taken excellent care of the patient. The patient will decide if she wants to undergo any further treatment for her metastatic disease. There is certainly a chance that she may not recover from this infection. She understands this and in fact wishes to be at home. I will extend the course of levofloxacin started by Dr. Sheikh. I will add clindamycin as well. The patient will need to follow home precaution/quarantine as she is being tested for Covid- 19 virus. Physical Exam Vital Signs: Temp Pulse Resp BP Pulse Ox 98.5 F 103 H 26 H 109/56 L 95 04/28/19 11:17 04/28/19 11:17 04/28/19 11:17 04/28/19 11:17 04/28/19 11:17 Intake & Output 04/27/19 04/28/19 04/29/19 06:59 06:59 06:59 Intake Total 3090 1410 Output Total 400 500 Balance 2690 910 Weight 78.5 kg General appearance: PRESENT: cooperative, mild distress, well-developed Head exam: PRESENT: atraumatic, normocephalic Ear exam: PRESENT: normal external ear exam. ABSENT: bleeding, drainage Respiratory exam: PRESENT: clear to auscultation christian - Anteriorly, decreased breath sounds - At bases, symmetrical, other - Limited inspiratory phase. ABSENT: wheezes Cardiovascular exam: PRESENT: RRR, +S1, +S2 GI/Abdominal exam: PRESENT: distended, soft, tenderness, other - VAC dressing in place Rectal exam: PRESENT: deferred Gentrourinary exam: ABSENT: indwelling catheter Neurological exam: PRESENT: alert, awake, oriented to person, oriented to place, oriented to time, oriented to situation, CN II-XII grossly intact Psychiatric exam: PRESENT: appropriate affect - The patient is tearful. This is more due to discussing her current clinical situation and discharging to home versus symptoms such as discomfort., other - Tearful. ABSENT: agitated, anxious Results Laboratory Results: WBC 33.9 10^3/uL (4.0-10.5) H* 04/28/19 04:59 RBC 3.05 10^6/uL (3.72-5.28) L 04/28/19 04:59 Hgb 9.6 g/dL (12.0-15.5) L 04/28/19 04:59 Hct 28.1 % (36.0-47.0) L 04/28/19 04:59 MCV 92 fl (80-97) 04/28/19 04:59 MCH 31.3 pg (27.0-33.4) 04/28/19 04:59 MCHC 34.1 g/dL (32.0-36.0) 04/28/19 04:59 RDW 15.8 % (11.5-14.0) H 04/28/19 04:59 Plt Count 184 10^3/uL (150-450) 04/28/19 04:59 Lymph % (Auto) Not Reportable 04/27/19 17:00 Page % (Auto) Not Reportable 04/27/19 17:00 Eos % (Auto) Not Reportable 04/27/19 17:00 Baso % (Auto) Not Reportable 04/27/19 17:00 Absolute Neuts (auto) Not Reportable 04/27/19 17:00 Absolute Lymphs (auto) Not Reportable 04/27/19 17:00 Absolute Monos (auto) Not Reportable 04/27/19 17:00 Absolute Eos (auto) Not Reportable 04/27/19 17:00 Absolute Basos (auto) Not Reportable 04/27/19 17:00 Total Counted 100 04/27/19 17:00 Seg Neutrophils % Not Reportable 04/27/19 17:00 Seg Neuts % (Manual) 99 % (42-78) H 04/27/19 17:00 Lymphocytes % (Manual) 1 % (13-45) L 04/27/19 17:00 Monocytes % (Manual) 0 % (3-13) L 04/27/19 17:00 Eosinophils % (Manual) 0 % (0-6) 04/27/19 17:00 Basophils % (Manual) 0 % (0-2) 04/27/19 17:00 Abs Neuts (Manual) 29.5 10^3/uL (1.7-8.2) H 04/27/19 17:00 Abs Lymphs (Manual) 0.3 10^3/uL (0.5-4.7) L 04/27/19 17:00 Abs Monocytes (Manual) 0.0 10^3/uL (0.1-1.4) L 04/27/19 17:00 Absolute Eos (Manual) 0.0 10^3/uL (0.0-0.6) 04/27/19 17:00 Abs Basophils (Manual) 0.0 10^3/uL (0.0-0.2) 04/27/19 17:00 Platelet Comment ADEQUATE 04/27/19 17:00 Poikilocytosis SLIGHT 04/27/19 17:00 Anisocytosis SLIGHT 04/27/19 17:00 Ovalocytes SLIGHT 04/27/19 17:00 PT 17.2 SEC (11.4-15.4) H 04/27/19 17:00 INR 1.39 04/27/19 17:00 VBG pH 7.44 (7.30-7.42) H 04/27/19 17:00 VBG pCO2 37.2 mmHg (35-63) 04/27/19 17:00 VBG HCO3 24.8 mmol/L (20-32) 04/27/19 17:00 VBG Base Excess 1.0 mmol/L 04/27/19 17:00 Sodium 131.7 mmol/L (137-145) L 04/28/19 04:59 Potassium 3.6 mmol/L (3.6-5.0) 04/28/19 04:59 Chloride 106 mmol/L (98-107) 04/28/19 04:59 Carbon Dioxide 22 mmol/L (22-30) 04/28/19 04:59 Anion Gap 5 (5-19) 04/28/19 04:59 BUN 6 mg/dL (7-20) L 04/28/19 04:59 Creatinine 0.36 mg/dL (0.52-1.25) L 04/28/19 04:59 Est GFR ( Amer) > 60 (>60) 04/28/19 04:59 Est GFR (MDRD) Non-Af > 60 (>60) 04/28/19 04:59 Glucose 73 mg/dL (75-110) L 04/28/19 04:59 POC Glucose 112 mg/dL (70-110) H 04/28/19 11:19 Lactic Acid 1.6 mmol/L (0.7-2.1) 04/27/19 23:45 Calcium 7.4 mg/dL (8.4-10.2) L 04/28/19 04:59 Magnesium 1.7 mg/dL (1.6-2.3) 04/28/19 04:59 Total Bilirubin 1.0 mg/dL (0.2-1.3) 04/28/19 04:59 Direct Bilirubin 0.1 mg/dL (0.0-0.4) 04/28/19 04:59 Neonat Total Bilirubin Not Reportable 04/28/19 04:59 Neonat Direct Bilirubin Not Reportable 04/28/19 04:59 Neonat Indirect Bili Not Reportable 04/28/19 04:59 AST 37 U/L (14-36) H 04/28/19 04:59 ALT 19 U/L (<35) 04/28/19 04:59 Alkaline Phosphatase 216 U/L (38-126) H 04/28/19 04:59 Total Protein 4.2 g/dL (6.3-8.2) L 04/28/19 04:59 Albumin 1.9 g/dL (3.5-5.0) L 04/28/19 04:59 Influenza A (Rapid) NEGATIVE (NEGATIVE) 04/27/19 17:00 Influenza B (Rapid) NEGATIVE (NEGATIVE) 04/27/19 17:00 Group A Strep Rapid NEGATIVE (NEGATIVE) 04/27/19 17:00 Impressions: Chest X-Ray 04/27/19 18:08 IMPRESSION: Mild cardiomegaly. Small left pleural effusion. Bibasilar airspace opacities, may be secondary to atelectasis or pneumonia. Venous Doppler Study 04/27/19 18:09 IMPRESSION: No sonographic evidence for lower extremity deep venous thrombosis. The manager gaming gave the preliminary results to the charge nurse 04/27/2019 at 2020 hours Plan Health Concerns: Overall prognosis is poor Plan of Treatment: Discharge on dual oral antibiotic therapy with the understanding of possible clinical failure. Intra-abdominal process versus healthcare acquired pneumonia are the processes in play. Goals: We will attempt to treat the infection that is present. I believe the patient and her are considering hospice care versus ongoing treatment. Time Spent: Greater than 30 Minutes Stroke Is this a Stroke Patient?: No Acute Heart Failure - Is this a Heart Failure Patient?: No
[2019-04-28 14:58] VITALS: BP 116/65
[2019-04-28] MEDS ORDERED: CEFTAZIDIME PENTAHYDRATE 2 GM in DEXTROSE 5%-WATER 100 ML IV SCH (22:00)
[2019-04-29 12:56] LABS: PATH REVIEW PATHOLOGIST REVIEWED
== END 2019-04-28 15:59 | disposition home health service (06) ==
LOC: ER 16:47 → INTOOBSV 21:21 → EH 21:21 → 5 22:39
PROVIDERS: ADMIT Emergency Medicine; ATTEND Hospitalist
DX: J18.9 Pneumonia, unspecified organism (principal); C23 Malignant neoplasm of gallbladder; J96.11 Chronic respiratory failure with hypoxia; C79.9 Secondary malignant neoplasm of unspecified site; E87.1 Hypo-osmolality and hyponatremia; J44.0 Chronic obstructive pulmonary disease with (acute) lower respiratory infection; R18.8 Other ascites; F41.9 Anxiety disorder, unspecified; E11.9 Type 2 diabetes mellitus without complications; I10 Essential (primary) hypertension; E87.6 Hypokalemia; T81.31XD Disruption of external operation (surgical) wound, not elsewhere classified, subsequent encounter; D72.829 Elevated white blood cell count, unspecified; M62.81 Muscle weakness (generalized); Z79.899 Other long term (current) drug therapy; Z79.84 Long term (current) use of oral hypoglycemic drugs; Z92.21 Personal history of antineoplastic chemotherapy; Z87.891 Personal history of nicotine dependence; Z88.3 Allergy status to other anti-infective agents; R25.1 Tremor, unspecified; Z88.0 Allergy status to penicillin; Z88.8 Allergy status to other drugs, medicaments and biological substances; Z79.51 Long term (current) use of inhaled steroids; Z90.49 Acquired absence of other specified parts of digestive tract; Z99.81 Dependence on supplemental oxygen; Z03.818 Encounter for observation for suspected exposure to other biological agents ruled out; Z51.5 Encounter for palliative care
CPT/HCPCS: 93005; 36591; 99285; 96361; 96365; 96367; 36415 ×2; 87040; 87070; 87880; 82962 ×2; 83605; 83735; 85025; 85027; 85610; 87635; 80053 ×2; 82803; 87804; 93971; 71045; 93010; 94640 ×2; J0610; J1644 ×2; J0713; J3490 ×5; J2270 ×2; J2550; J7030; J3480 ×2; S0028 ×2; J1642

== ENCOUNTER 2019-05-31 02:22 | Emergency (ER) | payer OTHER ==
[2019-05-31] MEDS ORDERED: DIAZEPAM INJ 10 MG/2 ML DISP.SYRIN IV ONE (04:14)
[2019-05-31] MEDS ORDERED: NORMAL SALINE 1000 ML 1,000 ML IV ONE (04:14)
[2019-05-31] MEDS ORDERED: ONDANSETRON HCL INJ/PF 4 MG/2 ML SDV IV ONE (04:14)
--- NOTE | 2019-05-31 04:31 | ER Document Report ---
ED General - General Chief Complaint: Nausea/Vomiting/Diarrhea Stated Complaint: VOMITING Time Seen by Provider: 05/31/19 03:53 Primary Care Provider: JASWANT EDWARDS MD [Primary Care Provider] - Follow up as needed Notes: 64-year-old female with a complicated past medical history of malignant stage IV gallbladder cancer, COPD, anxiety, diabetes, followed here by the local oncologist who is status post SBO surgery on 05/19 presents to the emergency department with chief complaint of nausea, vomiting, and diarrhea x3 days. Patient was seen at the oncologist office yesterday and was given 1 L normal saline and some Zofran with no relief. Patient states that her symptoms have persisted. Patient denies any fevers or chills, denies any acute shortness of breath or chest pain, does complain of weakness, denies any abdominal pain. Patient had a wound VAC that was removed and the site is clean dry and intact.. TRAVEL OUTSIDE OF THE [place] IN LAST 30 DAYS: No - Related Data Allergies/Adverse Reactions: Penicillins Adverse Reaction (Severe, Verified 05/31/19 02:39) WHEEZE metronidazole [From Flagyl] Adverse Reaction (Verified 05/31/19 02:39) Past Medical History - Social History Smoking Status: Former Smoker Family History: DM, Malignancy. denies: CAD, Hypertension Patient has suicidal ideation: No Patient has homicidal ideation: No - Past Medical History Cardiac Medical History: Reports: Hx Hypertension Denies: Hx Coronary Artery Disease, Hx Heart Attack Pulmonary Medical History: Reports: Hx Bronchitis, Hx COPD, Hx Pneumonia Denies: Hx Asthma Neurological Medical History: Denies: Hx Cerebrovascular Accident, Hx Seizures Endocrine Medical History: Reports: Hx Diabetes Mellitus Type 2 - borderline. Denies: Hx Diabetes Mellitus Type 1, Hx Hyperthyroidism, Hx Hypothyroidism Renal/ Medical History: Denies: Hx Peritoneal Dialysis GI Medical History: Denies: Hx Cirrhosis, Hx Crohn's Disease, Hx Diverticulitis, Hx Hepatitis, Hx Hiatal Hernia, Hx Ulcerative Colitis Musculoskeletal Medical History: Denies Hx Arthritis, Denies Hx Gout Skin Medical History: Denies Hx Eczema, Denies Hx Psoriasis Psychiatric Medical History: Reports: Hx Depression Infectious Medical History: Denies: Hx Hepatitis Past Surgical History: Reports: Hx Abdominal Surgery, Hx Cholecystectomy, Hx Orthopedic Surgery - left foot/ titanium plates placed, Hx Tonsillectomy, Other - Radical cholecystectomy, liver resection, periportal lymphad. Denies: Hx Hysterectomy - Immunizations Hx Diphtheria, Pertussis, Tetanus Vaccination: Yes Hx Pneumococcal Vaccination: 02/06/13 Review of Systems - Review of Systems Constitutional: See HPI EENT: No symptoms reported Cardiovascular: See HPI Respiratory: See HPI Gastrointestinal: See HPI Genitourinary: No symptoms reported Female Genitourinary: No symptoms reported Musculoskeletal: No symptoms reported Skin: No symptoms reported Hematologic/Lymphatic: No symptoms reported Neurological/Psychological: See HPI Physical Exam - Vital signs Vitals: Temp Pulse Resp BP Pulse Ox 98.1 F 100 20 135/87 H 96 05/31/19 02:33 05/31/19 02:33 05/31/19 02:33 05/31/19 02:33 05/31/19 02:33 - Notes Notes: PHYSICAL EXAMINATION: Reviewed vital signs and charting by RN GENERAL: Alert, interacts well. No acute distress. HEAD: Normocephalic, atraumatic. EYES: Pupils equal and round. Extraocular movements intact. ENT: Oral mucosa moist, tongue midline. NECK: Full range of motion. Trachea midline. LUNGS: Clear to auscultation bilaterally, no wheezes, rales, or rhonchi. No respiratory distress. HEART: Regular rate and rhythm. No murmur ABDOMEN: Soft dressing over the wound VAC site, skin is clean dry intact and well-healed, no erythema. Soft, non-tender. No distention. Bowel sounds present EXTREMITIES: Moves all 4 extremities spontaneously. No edema, No cyanosis. PSYCH: Normal affect, normal mood. SKIN: Warm, dry, normal turgor. No rashes or lesions noted. Course - Re-evaluation Re-evalutation: 05/31/19 04:30 Patient is overall well-appearing in no acute distress. Manual pulse check 90 bpm. All other vital signs within normal limits. Basic labs have been drawn and patient will receive IV fluids and antiemetics to include Valium. Will reassess patient's treatment 05/31/19 07:22 Patient did not initially respond to the IV Zofran and Valium 5 mg IV once. Phenergan 6.25 mg IV piggyback was then given and she did report improvement. Lab work showed a critical value with potassium of 2.6. EKG was then done which showed a sinus rhythm with nonspecific T wave abnormalities, no evidence of ST segment depressions or arrhythmias. Plan is to replete patient's calcium with 20 mEq IV and 80 mEq p.o. I spoke with Dr. Kyleigh Sheikh, oncologist on-call, and her recommendation is to replete her potassium and she strongly implored us to avoid any hospital admission if she is no longer having symptoms. Patient has reported significant interval improvement of her symptoms and we anticipate she will be stable for discharge so she can conduct a telemedicine consult with Dr. Tadeo at 11:30 AM. - Vital Signs Vital signs: Temp Pulse Resp BP Pulse Ox 98.1 F 100 20 135/87 H 96 05/31/19 02:39 05/31/19 02:33 05/31/19 02:33 05/31/19 02:33 05/31/19 02:33 - Laboratory Result Diagrams: 05/31/19 04:35 05/31/19 04:35 Laboratory results interpreted by me: 05/31/19 05/31/19 04:35 04:35 RBC 3.44 L Hgb 10.5 L Hct 30.8 L RDW 16.2 H Potassium 2.6 L* Carbon Dioxide 31 H BUN 2 L Creatinine 0.41 L Calcium 8.3 L AST 38 H Alkaline Phosphatase 256 H Total Protein 5.7 L Albumin 2.5 L Discharge - Discharge Clinical Impression: Hypokalemia Nausea and vomiting Qualifiers: Vomiting type: unspecified Vomiting Intractability: non-intractable Qualified Code(s): R11.2 - Nausea with vomiting, unspecified Diarrhea Qualifiers: Diarrhea type: unspecified type Qualified Code(s): R19.7 - Diarrhea, unspecified Condition: Stable Disposition: HOME, SELF-CARE Additional Instructions: You were seen in the emergency department today for nausea, vomiting, and diarrhea. You were treated with Zofran, Phenergan, and IV fluids. Your labs show that you had a significant hypokalemia and we repleted your potassium. After speaking with Dr. Sheikh her recommendation was for you to discharge home and conduct a telemedicine consult with Dr. Tadeo at 1130 today. Please return to the emergency department if you redevelop worsening symptoms of nausea/vomiting/diarrhea, you develop acute shortness of breath or chest pain, you start having heart palpitations or irregular heartbeat, or you have any symptoms concerning to you. Because you are immunosuppressed it is safer for you to be home. Referrals: MICHA TADEO MD [ACTIVE STAFF] - 05/31/19 11:30 am
[2019-05-31 04:43] LABS: ABSOLUTE BASOPHILS # (AUTO) 0.1 10^3/uL (0.0-0.2); ABSOLUTE EOSINOPHILS # (AUTO) 0.2 10^3/uL (0.0-0.6); ABSOLUTE LYMPHOCYTES (AUTO) 1.1 10^3/uL (0.5-4.7); ABSOLUTE MONOCYTES (AUTO) 0.5 10^3/uL (0.1-1.4); ABSOLUTE NEUT (AUTO) 4.9 10^3/uL (1.7-8.2); BASOPHILS % (AUTO) 1.2 % (0-2); EOSINOPHILS % (AUTO) 2.4 % (0-6); HEMATOCRIT 30.8 % (36.0-47.0); HEMOGLOBIN 10.5 g/dL (12.0-15.5); LYMPHOCYTES % (AUTO) 16.7 % (13-45); MEAN CORPUSCULAR HEMOGLOBIN 30.5 pg (27.0-33.4); MEAN CORPUSCULAR HGB CONC 34.1 g/dL (32.0-36.0); MEAN CORPUSCULAR VOLUME 90 fl (80-97); MONOCYTES % (AUTO) 7.4 % (3-13); PLATELET COUNT 191 10^3/uL (150-450); RED BLOOD COUNT 3.44 10^6/uL (3.72-5.28); RED CELL DISTRIBUTION WIDTH 16.2 % (11.5-14.0); SEGMENTED NEUTROPHILS % (AUTO) 72.3 % (42-78); TOTAL CELLS COUNTED % (AUTO) 100 %; WHITE BLOOD COUNT 6.7 10^3/uL (4.0-10.5)
[2019-05-31 05:02] LABS: ALBUMIN 2.5 g/dL (3.5-5.0); ALKALINE PHOSPHATASE 256 U/L (38-126); ASPARTATE AMINO TRANSFERASE 38 U/L (14-36); BLOOD UREA NITROGEN 2 mg/dL (7-20); CALCIUM 8.3 mg/dL (8.4-10.2); GLUCOSE 95 mg/dL (75-110)
[2019-05-31 05:03] LABS: BILIRUBIN,TOTAL 0.8 mg/dL (0.2-1.3); TOTAL PROTEIN 5.7 g/dL (6.3-8.2)
[2019-05-31 05:30] LABS: ANION GAP 6 (5-19); CARBON DIOXIDE 31 mmol/L (22-30); CHLORIDE 101 mmol/L (98-107)
[2019-05-31 05:44] LABS: POTASSIUM 2.6 mmol/L (3.6-5.0)
[2019-05-31] MEDS ORDERED: PROMETHAZINE HCL INJ 25 MG/1 ML VIAL IV ONE (05:48)
[2019-05-31] MEDS ORDERED: POTASSIUM CHLORIDE 10 MEQ TABLET.ER PO ONE (05:49)
[2019-05-31] MEDS ORDERED: POTASSI CL 20 MEQ/50 ML RIDER 20 MEQ/50 ML RTUPB IV ONE (05:49)
[2019-05-31 07:24] LABS: AMORPHOUS SEDIMENT,URINE TRACE /HPF; APPEARANCE,URINE SLIGHTLY-CLOUDY; BILIRUBIN,URINE NEGATIVE (NEGATIVE); COLOR,URINE YELLOW; GLUCOSE, URINE NEGATIVE (NEGATIVE); KETONES,URINE NEGATIVE (NEGATIVE); LEUKOCYTE ESTERASE,URINE NEGATIVE (NEGATIVE); NITRITE,URINE NEGATIVE (NEGATIVE); PROTEIN,URINE NEGATIVE (NEGATIVE); URINE SPECIFIC GRAVITY 1.006; UROBILINOGEN,URINE NEGATIVE mg/dL (<2.0)
[2019-05-31 09:36] VITALS: BP 156/75
--- NOTE | 2019-06-02 10:30 | EKG REPORT ---
SEVERITY:- ABNORMAL ECG - SINUS RHYTHM NONSPECIFIC T ABNORMALITIES, LATERAL LEADS : Confirmed by: Madison Abbasi 02-Jun-2019 10:29:25
== END 2019-05-31 09:37 | disposition home or self-care (01) ==
LOC: ER 02:22
DX: E87.6 Hypokalemia (principal); R11.2 Nausea with vomiting, unspecified; R19.7 Diarrhea, unspecified; C23 Malignant neoplasm of gallbladder; R73.03 Prediabetes; J44.9 Chronic obstructive pulmonary disease, unspecified; Z90.49 Acquired absence of other specified parts of digestive tract; Z88.0 Allergy status to penicillin
CPT/HCPCS: 93005; 36591; 99284; 96361; 96375; 96365; 96366; 36415; 83735; 85025; 80053; 81001; 93010; J3360; J2550; J2405; J3480; J7030; J1642